=== PATIENT | female | born 1970 | race Caucasian/White ===

== ENCOUNTER 2022-08-31 13:15 | Emergency (ER) | payer MEDICAID, SELFPAY ==
[2022-08-31] VITALS (9 sets, daily range): BP systolic 128–147; BP diastolic 67–78; PULSE 86–101; RESP 20; TEMP 37.1–37.2; O2SAT 87–90; BMI 34.6
--- NOTE | 2022-08-31 13:45 | CRLHL7_ITS ---
For Patients: As a result of the Century Cures Act, medical imaging exams and procedure reports are released immediately into your electronic medical record. You may view this report before your referring provider. If you have questions, please contact your health care provider. INDICATION: Asthma. Dyspnea COMPARISON: August 02, 2018 TECHNIQUE: Single-view examination FINDINGS: TUBES AND LINES: None. HEART AND MEDIASTINUM: The heart size is normal. The mediastinal contour appears normal for patient age. LUNGS AND PLEURAL SPACES: The lungs appear normal.The pleural spaces are unremarkable. OSSEOUS STRUCTURES: Age-appropriate appearance. No acute focal finding. IMPRESSION: No evidence of active pulmonary disease. Dictated by Felipe Marcus MD @ 08/31/2022 2:36:54 PM (Electronically Signed)
[2022-08-31 13:55] LABS: Basophils Absolute Auto 0.03 K/uL (0.00-0.30); Basophils Percent Auto 0.4 % (0.0-3.0); Eosinophils Absolute Auto 0.48 K/uL (0.00-0.50); Eosinophils Percent Auto 6.2 % (0.0-7.0); Hematocrit 40.7 % (33.0-51.0); Hemoglobin* 13.3 gm/dL (12.0-16.0); Immature Granulocytes Abs Auto 0.01 K/uL (0.00-0.30); Immature Granulocytes Pct Auto 0.1 %; Lymphocytes Absolute Auto 1.98 K/uL (0.90-2.90); Lymphocytes Percent Auto 25.5 % (20-44); Mean Corpuscular HGB Conc 33 gm/dL (32-36); Mean Corpuscular Hemoglobin 31 pg (26-34); Mean Corpuscular Volume 94 fL (80-100); Monocytes Percent Auto 5.2 % (0.0-11.0); Neutrophils Absolute Auto 4.86 K/uL (1.7-7.0); Neutrophils Percent Auto 62.6 % (42.0-72.0); Platelet Count* 272 K/uL (140-440); RDW Coefficient of Variation % 13.4 % (11.5-15.5); Red Blood Count 4.31 m/uL (4.00-5.20); White Blood Count* 7.76 K/uL (4.50-11.00)
--- NOTE | 2022-08-31 13:55 | ED_ITS ---
HPI - General Adult General Time Seen by Provider: 13:55 Date Seen: 08/31/22 Chief complaint: Asthma Stated complaint: Asthma Time Seen by Provider: 08/31/22 13:31 Source: patient Mode of arrival: EMS Limitations: no limitations History of Present Illness HPI narrative: Patient is a very pleasant 52 white female who has a long history of asthma, she sees Dr. Plummer in [facility] in [place]. The patient has had a cold for the last couple of days in her breathing got worse, she went to Urgent Care, they sent her by ambulance to the emergency department. Her OC sats were in the 85% range at the urgent care. She typically does very well with steroids and that helps her greatly. She thinks she ?waited too long this time?. The patient got Solu-Medrol in route 125, DuoNeb x2 and albuterol neb x1, she feels better, O2 sats now in the 88-92% range patient has had a mild cold over the last couple of days as mention. Generally is healthy other than her asthma component. She does take duloxetine metformin methylphenidate montelukast a statin and topiramate. She states he feels better at this time and has improved significantly Related Data Home Medications Medication Instructions Recorded Confirmed albuterol sulfate 90 mcg/actuation inhalation 08/31/22 aerosol inhaler (ProAir HFA) alprazolam 0.5 mg tablet mg 08/31/22 aripiprazole 15 mg tablet mg 08/31/22 duloxetine 30 mg capsule,delayed mg PO 08/31/22 release duloxetine 60 mg capsule,delayed mg PO 08/31/22 release eszopiclone 2 mg tablet mg 08/31/22 liraglutide 0.6 mg/0.1 mL (18 mg/3 mg subcut 08/31/22 mL) subcutaneous pen injector (Victoza 3-Boom) metformin 500 mg tablet,extended mg PO 08/31/22 release 24 hr methylphenidate HCl 20 mg tablet mg 08/31/22 montelukast 10 mg tablet mg 08/31/22 rosuvastatin 10 mg tablet mg 08/31/22 topiramate 50 mg tablet mg 08/31/22 Previous Rx's Medication Instructions Recorded prednisone 20 mg tablet 20 mg PO BID #10 tabs 08/31/22 Allergies Allergy/AdvReac Type Severity Reaction Status Date / Time No Known Drug Allergies Allergy Verified 08/31/22 12:28 Review of Systems Status of ROS: Reports: 6 or more systems reviewed and unremarkable except as noted in History and below [facility] Medical History Shortness of breath Social History Smoking Status: Never smoker How often do you have a drink containing alcohol: never How often do you have six or more drinks on one occasion: Never AUDIT-C Alcohol total score: 0 Non-prescribed substance use: denies use Exam Narrative: Exam Narrative: Objective: Vital signs are O2 sat 88 and 87% on 2 L nasal cannula, patient is noncyanotic, no accessory muscles of respiration used HEENT is unremarkable no facial asymmetry, mouth clear Neck is supple Chest shows diffuse lower half wheezes, no rales Heart rhythm regular Extremities are no edema good perfusion Skin warm and dry Const: Vital Signs, click to edit/add: Vital Signs - 24 hr 08/31/22 13:23 08/31/22 13:30 08/31/22 13:32 Temperature 99.0 F Pulse Rate 97 98 Pulse Rate [Right Pulse Oximeter] 86 Respiratory Rate Blood Pressure 140/72 H Blood Pressure [Le ft Upper Arm] 128/67 Pulse Oximetry 88 87 L 87 L Oxygen Delivery Me thod Nasal Cannula Nasal Cannula Nasal Cannula Oxygen Flow Rate 2 2 2 08/31/22 13:45 08/31/22 13:33 08/31/22 14:00 Temperature Pulse Rate 95 93 Pulse Rate [Right Pulse Oximeter] Respiratory Rate Blood Pressure Blood Pressure [Le ft Upper Arm] Pulse Oximetry 90 88 87 L Oxygen Delivery Me thod Nasal Cannula Nasal Cannula Oxygen Flow Rate 2 2 08/31/22 14:30 08/31/22 15:28 08/31/22 17:14 Temperature 98.7 F Pulse Rate 101 H Pulse Rate [Right Pulse Oximeter] 89 Respiratory Rate 20 Blood Pressure Blood Pressure [Le ft Upper Arm] 147/78 H 138/76 Pulse Oximetry 88 90 90 Oxygen Delivery Me thod Nasal Cannula Room Air Room Air Oxygen Flow Rate 2 Course Vital Signs Vital signs: Initial Vital Signs Temperature 99.0 F 08/31/22 13:23 Temperature Source Temporal Artery Scan 08/31/22 13:23 Pulse Rate 86 12/14/22 13:23 Blood Pressure 128/67 08/31/22 13:23 Blood Pressure Mean 87 08/31/22 13:23 Blood Pressure Position Sitting 08/31/22 13:23 Pulse Oximetry 88 08/31/22 13:23 Oxygen Delivery Method 08/31/22 13:23 Oxygen Flow Rate 2 08/31/22 13:23 Vital Signs Temperature 99.0 F 08/31/22 13:23 Pulse Rate 86 08/31/22 13:23 Blood Pressure 128/67 08/31/22 13:23 Pulse Oximetry 88 08/31/22 13:23 Oxygen Delivery Method 08/31/22 13:23 Oxygen Flow Rate 2 08/31/22 13:23 Temperature 98.7 F 08/31/22 17:14 Pulse Rate 89 08/31/22 17:14 Respiratory Rate 20 08/31/22 17:14 Blood Pressure 138/76 08/31/22 17:14 Pulse Oximetry 90 08/31/22 17:14 Oxygen Delivery Method 08/31/22 17:14 Oxygen Flow Rate 2 08/31/22 14:30 Medical Decision Making MDM Narrative Medical decision making narrative: Patient has a history of asthma, and has had upper respiratory infection, she has been treated with Solu-Medrol and nebs already. Feels better. O2 sat is still leaking behind. Will check x-ray, COVID/RSV/influenza test. Laboratory studies. Give additional IV fluid. Question be whether she can proceed home based on her O2 sat and think monitoring for. Time would be reasonable. She was comfortable this plan. Addendum: The patient's x-ray by my read looks looks unremarkable, her laboratory studies look reassuring, COVID/influenza/RSV are negative. She states she feels much better after the nebs and the steroid. However without oxygen she drops down in the 84 85% O2 sat range. She tends to respond well to steroids and will give her a 50 mg additional oral steroid, and then give her a little more time to see if her O2 sats will stabilize. If not she may need hospitalization overnight. But will see how she responds. Addendum: Patient has a reassuring x-ray as well as laboratory studies. Her O2 sat at rest is in the 92-88% range. When she does exercise remove about she gets into the 85to 86 range. She has no shortness of breath chest pain or breathing difficulty. At this time I offered her admission to the hospital noting that she does have a fairly low O2 sat and with asthma this could be of concern that she could injure herself or fall or get hypoxic. She understands this and wishes to make a decision to go home. She would like to continue prednisone which has helped her in the past. I think that is reasonable will call in 20 mg b.i.d. x5 days. I also offered her more prolonged observation period in the ED and she declined this. I do think the steroids will help her over the next 6-8 hours. She does have nebulizers at home. If she continue the runs lower than 88% on her O2 sat she should come back to the ER, and she was comfortable this plan. I did reiterate that I strongly recommend she stay in the hospital that would be my medical recommendation. She understands that wishes to go home at this time., and I think his capable and competent to make that decision Lab Data Labs: Lab Results 08/31/22 08/31/22 08/31/22 Range/Units 13:40 13:40 13:40 WBC 7.76 (4.50-11.00) K/uL RBC 4.31 (4.00-5.20) m/uL Hgb 13.3 (12.0-16.0) gm/dL Hct 40.7 (33.0-51.0) % MCV 94 (80-100) fL MCH 31 (26-34) pg MCHC 33 (32-36) gm/dL RDW Coeff of Orly 13.4 (11.5-15.5) % Plt Count 272 (140-440) K/uL Neut % (Auto) 62.6 (42.0-72.0) % Lymph % (Auto) 25.5 (20-44) % Ponce % (Auto) 5.2 (0.0-11.0) % Eos % (Auto) 6.2 (0.0-7.0) % Baso % (Auto) 0.4 (0.0-3.0) % Neut # (Auto) 4.86 (1.7-7.0) K/uL Lymph # (Auto) 1.98 (0.90-2.90) K/uL Ponce # (Auto) 0.40 (0.00-0.90) K/UL Eos # (Auto) 0.48 (0.00-0.50) K/uL Baso # (Auto) 0.03 (0.00-0.30) K/uL Abs Immat Gran (auto) 0.01 (0.00-0.30) K/uL Imm/Tot Granulo (auto) 0.1 % Sodium 142 (135-149) mmol/L Potassium 4.3 (3.6-5.1) mmol/L Chloride 108 (96-114) mmol/L Carbon Dioxide 28 (20-32) mmol/L BUN 10 (7-30) mg/dL Creatinine 0.6 (0.5-1.5) mg/dL Estimated Creat Clear 126.57 Estimated GFR 108 ml/min Glucose 121 H (60-115) mg/dL Calcium 9.2 (8.4-10.6) mg/dL Total Bilirubin 0.4 (0.1-1.5) mg/dL Direct Bilirubin 0.2 (0.0-0.5) mg/dL AST 24 (12-35) U/L ALT 23 (4-35) U/L Alkaline Phosphatase 69 (40-150) U/L C-Reactive Protein < 0.5 L (0.5-1.0) mg/dL Total Protein 7.6 (6.0-8.3) g/dL Albumin 4.6 (3.3-5.0) g/dL SARS-CoV-2 (PCR) Negative SARS-CoV-2 (Negative) Influenza Type A (PCR) Negative PCR FLU A (Negative) Influenza Type B (PCR) Negative PCR FLU B (Negative) RSV (PCR) Negative PCR RSV (Negative) Discharge Plan Discharge Clinical Impression: Asthma exacerbation, Acute upper respiratory infection Patient Disposition: Home w/ Parent or Adult Condition: Improved Additional Instructions: Light activity, recommend home O2 sat monitor, prednisone 20 mg b.i.d. x5 days start today, continue her home nebulizer DuoNeb 4 times a day, return to ED sooner if problems or concerns otherwise follow up with primary care in the next 2 days Activity Level: Light activity Discharge Diet: Regular Prescriptions: New prednisone 20 mg tablet 20 mg PO BID Qty: 10 0RF No Action methylphenidate HCl 20 mg tablet Label Comments: Take 1 Tablet (20 mg) by mouth three times a day. alprazolam 0.5 mg tablet montelukast 10 mg tablet Label Comments: Take 1 Tablet (10 mg) by mouth every evening. Will need an appointment for further refills. albuterol sulfate [ProAir HFA] 90 mcg/actuation HFA aerosol inhaler INHALATION Label Comments: Inhale 1-2 Puffs every 4 hours as needed for Wheezing. Pharmacy may substitute albuterol HFA inhalers based on insurance metformin 500 mg tablet extended release 24 hr PO Label Comments: Take 4 Tablets by mouth every evening with a meal aripiprazole 15 mg tablet Label Comments: Take 0.5 Tablets (7.5 mg) by mouth daily. rosuvastatin 10 mg tablet Label Comments: Take 1 Tablet by mouth daily topiramate 50 mg tablet Label Comments: take 1 tablet by mouth in the morning and 3 tablets in the late afternoon/evening duloxetine 30 mg capsule,delayed release(DR/EC) PO Label Comments: TAKE THREE CAPSULES BY MOUTH DAILY duloxetine 60 mg capsule,delayed release(DR/EC) PO Label Comments: Take 2 Capsules (120 mg) by mouth daily. eszopiclone 2 mg tablet Label Comments: Take 1 Tablet (2 mg) by mouth at bedtime as needed for Other (for insomnia). Victoza 3-Boom 0.6 mg/0.1 mL (18 mg/3 mL) pen injector SUBCUT Label Comments: INJECT 1.8 MG SUBCUTANEOUSLY DAILY Follow Up/Referrals: Provider,Not a Local [Primary Care Provider] - Stand Alone Forms: [employer] Info Instructions
[2022-08-31] MEDS: ACETAMINOPHEN 500 MG TABLET 1000 MG PO (13:57)
[2022-08-31] MEDS: 0.9 % SODIUM CHLORIDE 1000 ml 1,000 ML 6000 ML IV (13:58)
[2022-08-31 14:01] LABS: Slide Review Reflex No
[2022-08-31 14:11] LABS: Albumin* 4.6 g/dL (3.3-5.0); Chloride* 108 mmol/L (96-114); Sodium* 142 mmol/L (135-149)
[2022-08-31 14:12] LABS: Potassium* 4.3 mmol/L (3.6-5.1)
[2022-08-31 14:13] LABS: Creatinine* 0.6 mg/dL (0.5-1.5); Est. Creatinine Clearance* 126.57; Estimated Glomerular Filt Rate 108 ml/min
[2022-08-31 14:14] LABS: Alkaline Phosphatase* 69 U/L (40-150); Aspartate Amino Transferase* 24 U/L (12-35); Bilirubin Direct* 0.2 mg/dL (0.0-0.5); Bilirubin Total* 0.4 mg/dL (0.1-1.5); Carbon Dioxide* 28 mmol/L (20-32); Total Protein* 7.6 g/dL (6.0-8.3)
[2022-08-31 14:17] LABS: Alanine Aminotransferase* 23 U/L (4-35); Blood Urea Nitrogen* 10 mg/dL (7-30); Calcium* 9.2 mg/dL (8.4-10.6); Glucose* 121 mg/dL (60-115)
[2022-08-31 14:18] LABS: C Reactive Protein* < 0.5 mg/dL (0.5-1.0)
[2022-08-31 14:40] LABS: PCR FLU A Negative PCR FLU A (Negative); PCR FLU B Negative PCR FLU B (Negative); PCR RSV Negative PCR RSV (Negative); SARS PCR* Negative SARS-CoV-2 (Negative)
[2022-08-31] MEDS: predniSONE 10 MG TABLET 50 MG PO (14:52)
--- NOTE | 2022-08-31 14:54 | ED.NURSE ---
Trialed off supplemental O2. On RA, pt satting in mid-80's%. aware, placed back on 2L O2 NC.
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
--- OUTSIDE RECORDS SUMMARY | 2022-08-31 14:56 | XMS_ITS | Encounter Summary ---
:1970 Author Organization [facility] Address [address], [place] [address] Care Team Providers Name Role Phone Felipe Baum MD Primary Care Provider Encounter Details Date Type Department Care Team Description 06/03/2022 Partner ED HIM DEPARTMENT Provider, Juan sommers MD [facility] 06/03/2022 Interface provid er interface provider, ELADIO [address] Social History Tobacco Use Types Packs/Day Years [...] place to sleep or slept in a fpc (including now)? Sex Assigned at Date Recorded Female 04/30/2021 11:10 AM CDT documented as of this encounter Plan of Treatment Upcoming Encounters Date Type Specialty Care Team Description 09/01/2022 Telemedicine [place] [address] [place], [place] [address] (Wo rk) documented as of this encounter Visit Diagnoses Not on filedocumented in this encounter Care Teams Interpreter And Translator Relationship Specialty Start Date End Date Felipe Baum MD PCP - General Family Practice 07/16/19 [address] [place] [address] documented as of this encounter
--- OUTSIDE RECORDS SUMMARY | 2022-08-31 14:56 | XMS_ITS | Encounter Summary ---
:1970 Author Organization [facility] Address [address] [place] [address] Care Team Providers Name Role Phone Felipe Baum MD Primary Care Provider Reason for Visit Reason Comments Medication Follow Up Dwight[facility] Encounter Details Date Type Department Care Team Description 10/13/2021 Telephone [facility] Buffy Salcedo, Ms dication Follow Up [facility] RN (Roger) [address] [place], [place] [address] Social History Tobacco Use Types Packs/Day Years [...] place to sleep or slept in a custodial (including now)? Sex Assigned at Date Recorded Female 04/30/2021 11:10 AM CDT documented as of this encounter Nursing Notes Buffy Salcedo RN - 10/13/2021 1:32 PM CST Called pt and informed her about new prescription (victoza) from provider (Dr. Sultana). Pt said she has already picked up prescription. OLOGY PHYSICIAN documented in this encounter Plan of Treatment Upcoming Encounters Date Type Specialty Care Team Description 09/01/2022 Telemedicine [place] [address] [place], [place] [address] (Wo rk) documented as of this encounter Visit Diagnoses Not on filedocumented in this encounter Care Teams Leather Belt Maker Relationship Specialty Start Date End Date Felipe Baum MD PCP - General Family Practice 07/16/19 [address] [place] [address] documented as of this encounter
--- OUTSIDE RECORDS SUMMARY | 2022-08-31 14:56 | XMS_ITS | Encounter Summary ---
:1970 Author Organization [facility] Address [address], [place] [address] Care Team Providers Name Role Phone Felipe Baum MD Primary Care Provider Encounter Details Date Type Department Care Team Description 11/30/2021 Lab Visit Page Lab Type 2 diabetes mellitus [id number] with diabetic nephropathy, [place] [address] without long-term current [phone] use of insulin (HRC) Social History Tobacco Use Types Packs/Day Years [...] place to sleep or slept in a nursing home (including now)? Sex Assigned at Date Recorded Female 04/30/2021 11:10 AM CDT documented as of this encounter Plan of Treatment Upcoming Encounters Date Type Specialty Care Team Description 09/01/2022 Telemedicine [place] [address] [place], [place] [address] (Wo rk) documented as of this encounter Procedures Procedure Name Priority Date/Time Associated Diagnosis Comme nts ALBUMIN/CREAT RATIO Routine 11/30/2021 3:06 PM Type 2 diabetes Results for this CDT mellitus with procedure are in diabetic the results nephropathy, without section . long-term current use of insulin (HRC) BASIC METABOLIC Routine 11/30/2021 2:31 PM Type 2 diabetes Res ults for this PANEL CDT mellitus with procedure are in diabetic the results nephropathy, without section . long-term current use of insulin (HRC) HGB A1C Routine 11/30/2021 2:31 PM Type 2 diabetes Result s for this CDT mellitus with procedure are in diabetic the results nephropathy, without section . long-term current use of insulin (HRC) documented in this encounter Results Albumin/Creatinine Ratio,Random Urine (11/30/2021 3:06 PM CDT) athologist Signature Albumin/Creati 6 <30 mg/g 11/30/2021 [facility] nine Ratio, 6:10 PM CDT LABORATORY Urine, Random Albumin, 12.0 mg/L 11/30/2021 [facility] Urine, Random 6:10 PM CDT LABORATORY Creatinine, 193 >20 mg/dL 11/30/2021 [facility] Urine, Random mg/dL 6:10 PM CDT LABORATORY Specimen Anatomical Collection Method Collection Time Receive d Time (Source) Location / / Volume Laterality Urine Non-blood 11/30/2021 3:06 PM 2 3:06 Collection / CDT PM CDT Unknown Felipe Baum MD LAB_1 Performing Organization Address City/State/ZIP Code Phon e Number [facility] [id number] [place] [address] Basic Metabolic Panel (11/30/2021 2:31 PM CDT) athologist Signature Sodium 144 136 - 145 11/30/2021 [facility] mmol/L 5:36 PM CDT LABORATORY Potassium 4.5 3.5 - 5.1 11/30/2021 [facility] mmol/L 5:36 PM CDT LABORATORY Chloride 107 98 - 109 11/30/2021 [facility] mmol/L 5:36 PM CDT LABORATORY CO2 29 20 - 29 11/30/2021 [facility] mmol/L 5:36 PM CDT LABORATORY Anion Gap 8 7 - 16 11/30/2021 [facility] mmol/L 5:36 PM CDT LABORATORY Calcium 9.2 8.4 - 10.4 11/30/2021 [facility] mg/dL 5:36 PM CDT LABORATORY BUN 15 7 - 26 11/30/2021 [facility] mg/dL 5:36 PM CDT LABORATORY Creatinine 0.80 0.55 - 11/30/2021 [facility] 1.02 mg/dL 5:36 PM CDT LABORATORY GFR, Estimated >60 >60 11/30/2021 [facility] mL/min/1.7 5:36 PM CDT LABORATORY 3m2 Glucose 82 70 - 100 11/30/2021 [facility] mg/dL 5:36 PM CDT LABORATORY Comment: The given reference range is fo r the fasting state. Non-fasting reference range for glucose is 70 - 180 mg/dL. Hours Fasting 5 11/30/2021 5:36 PM CDT [facility] Specimen Anatomical Collection Method / Collection Time Recei janie Time (Source) Location / Volume Laterality Blood Venipuncture / 11/30/2021 2:31 11/30/2021 2:31 Unknown PM CDT PM CDT Felipe Baum MD LAB_1 Performing Organization Address City/[facility]/ZIP Code Phon e Number [facility] [id number] [place] [address] [facility] [id number] [place] [phone], [phone] [facility] (ABNORMAL) Hemoglobin A1C Glycosylated (11/30/2021 2:31 PM CDT) [facility] Method Time Signature Hemoglobin A1C 6.5 (H) <=5.6 % 12/01/2021 PENDING SALE TO [facility] 9:07 AM CDT [facility] Specimen Anatomical Collection Method / Collection Time Recei janie Time (Source) Location / Volume Laterality Blood Venipuncture / 11/30/2021 2:31 11/30/2021 2:31 Unknown PM CDT PM CDT Narrative [facility] - 12/01/2021 9:07 AM CDT For patients not previously diagnosed with diabetes: 5.7-6.4%: Increased risk for diabetes 6.5% and greater: Diagnostic for diabete s For patients diagnosed with diabetes: <8.0%: Goal of therapy for ages 18-75 Clinicians may recommend a higher or low er goal for specific individuals. Felipe Baum MD LAB_1 Performing Organization Address City/State/ZIP Code Phon e Number [facility] [address] [address] documented in this encounter Visit Diagnoses Diagnosis Type 2 diabetes mellitus with diabetic n ephropathy, without long-term current use of insulin (HRC) documented in this encounter Care Teams Director Of Sports Performance Relationship Specialty Start Date End Date Felipe Baum MD PCP - General Family Practice 07/16/19 [address] [place], [place] [id number] documented as of this encounter
--- OUTSIDE RECORDS SUMMARY | 2022-08-31 14:56 | XMS_ITS | Encounter Summary ---
:1970 Author Organization [facility] Address [address], [place] [address] Care Team Providers Name Role Phone Felipe Baum MD Primary Care Provider Encounter Details Date Type Department Care Team Description 12/02/2021 Telemedicine [place] [address] Felipe Baum, Type 2 diabetes Family Medicine MD mellitus with diabetic [facility] [address] nephropathy, without [place], [place] long-term cur rent use [phone] of insulin (HRC) [phone] (Primary Dx) (Work) Social History Tobacco Use Types Packs/Day Years [...] minutes do you engage in exercise at is 40 min 07/08/2021 level? Financial Resource [...] place to sleep or slept in a halfway (including now)? Sex Assigned at Date Recorded Female 04/30/2021 11:10 AM CDT documented as of this encounter Progress Notes Felipe Baum MD - 12/02/2021 7:00 AM CDT Subjective: Today's visit with Rajesh Caba was conducted as a scheduled video visit. The patient statesshe was excited to see her hemoglobin A1c down to 6.5%. She has continued to work on weight loss although has not been as active this past month as she started a couple new jobs. She plans to become more active again when things calm down though. She has not had any issues with low blood sugars and feels like things are going well. She has tolerated the lisinopril well and voices no other concerns this morning. 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 - Microalbuminuria has also significantly improved with lisinopril 2.5 mg daily, which she is tolerating well. - For now, we will maintain on her current regimen with no changes. - Encouraged annual eye exam. - Repeat labs in 3 months and follow up at that time or sooner if needed. Clinician located at home. Patient located at home Billing based on: Leanne Baum MD Voice recognition software ([employer]) was used to generate this note. As a result, wrong word or '[id number]' substitutions may have occurred due to the inherent limitations of voice recognition software. There may be errors in the script that have gone undetected. Please consider this when interpreting information found in this chart. documented in this encounter Plan of Treatment Upcoming Encounters Date Type Specialty Care Team Description 09/01/2022 Telemedicine [place] [address] [place], [place] [address] (Wo rk) Scheduled Orders Name Type Priority Associated Diagnoses Order S chedule Hemoglobin A1C Lab Routine Type 2 diabetes mellitus E xpected: 03/04/2022, Glycosylated with diabetic Expires: 12/02 nephropathy, without long-term current use of insulin (HRC) documented as of this encounter Visit Diagnoses Diagnosis Type 2 diabetes mellitus with diabetic n ephropathy, without long-term current use of insulin (HRC) - Primary documented in this encounter Care Teams Binding Nicker Relationship Specialty Start Date End Date Felipe Baum MD PCP - General Family Practice 07/16/19 [address] [place] [address] documented as of this encounter
--- OUTSIDE RECORDS SUMMARY | 2022-08-31 14:56 | XMS_ITS | Encounter Summary ---
:1970 Author Organization [facility] Address [address] [address] Care Team Providers Name Role Phone Felipe Baum MD Primary Care Provider Reason for Visit Reason Onset Date Comments Refill 08/25/2021 metFORMIN XR (GLUCOP ERIN XR) 500 MG 24 hour release tablet Encounter Details Date Type Department Care Team Description 08/25/2021 Refill [place] [address] Family Deysi Baum MD Refill (metFORMIN XR Medicine [address] (GLUCOPHAGE XR) 500 MG [address] [place] [address] 24 hour release tablet) [place], [place] [phone] (Wo rk) [address] [phone] Social History Tobacco Use Types Packs/Day Years [...] documented as of this encounter Nursing Notes Rafael Guerrero, RN - 08/27/2021 10:59 AM CST Further Assistance Needed on Refill from Clinician RN reviewed. New medication within the past year. Requesting 90 day supply. Cr is overdue (performed 14 months ago, required every 12 months) -> HBA1C is abnormal (9.1 % is greater than 7.9 %) Last qualifying visit: 05/27/2021 (with FELIPE BAUM) Next scheduled visit: 08/26/2021 (with FELIPE BAUM Review pended order for accuracy. Sign if appropriate. Document if appointment is needed for furtherrefills. Route to care team to notify patient if needed. Requested Prescriptions Pending Prescriptions Disp Refills metFORMIN XR (GLUCOPHAGE XR) 500 MG 24 hour release tablet 120 Tablet Sig: Take 1 Tablet by mouth every evening with a meal for 7 days, THEN 2 Tablets every evening witha meal for 7 days, THEN 3 Tablets every evening with a meal for 7 days, THEN 4 Tablets every eveningwith a meal for 7 days. REPRESENTATIVE Interface, Out Surescripts Prov Query - 08/25/2021 12:10 PM CST metFORMIN XR (GLUCOPHAGE XR) 500 MG 24 hour release tablet Medication started: 05/27/2021 Last ordered by FELIPE BAUM: 05/27/2021 (90 days ago) QTY: 120, Refills: 2, Sig: take 1 tablet by mouth every evening with a meal for 7 days, then 2 tablets every evening with a meal for 7 days, then 3 tablets every evening with a meal for 7 days, then 4 tablets every evening with a meal for 7 days. (unchanged) -> Patient has a visit scheduled within the next 3 days. -> The most recent order on 06/24/2021. -> Cr is overdue (performed 14 months ago, required every 12 months) -> HBA1C is abnormal (9.1 % is greater than 7.9 %) Last qualifying visit: 05/27/2021 (with FELIPE BAUM) Next scheduled visit: 08/26/2021 (with FELIPE BAUM) Cr: 0.8 mg/dL on 07/10/2020 HBA1C: 9.1 % on 05/13/2021 Powered by [employer] by [employer], Reference: [id number], 08/25/2021 12:10:46 PM DESK REPRESENTATIVE, Pool: JAVIER REFILL ([id number]) REPRESENTATIVE Interface, Out Surescripts Prov Query - 08/25/2021 12:10 PM CST The following lab order(s) may be associated with the Result Note below: BASIC METABOLIC PANEL Notes recorded by Felipe Baum MD on 07/13/2020 at 8:13 AM CDT Good morning, Your thyroid function and blood counts look good, so these are not to blame for your fatigue. Your sodium is a little high, but that should also not explain your current symptoms. I am wondering if youmight have sleep apnea as that could explain the fatigue and I would like you to consider a sleep study. Your provider has recommended an appointment with [facility]. This is not a sleep study order and must first be reviewed by a sleep specialist to determine the next steps. The review processlooks at multiple factors including your insurance requirements, personal health history, and [place] [employer] guidelines. This order will be reviewed within 1 business day and sent to scheduling for one of the following appointments: - Consultation/Office Visit with a Sleep Medicine Specialist - Consultation/Office Visit with an Insomnia Specialist - Portable/Home Sleep Test If you do not hear from our scheduling staff within the next 7 days, please contact us at [phone] and select option 1. If you have any further questions or concerns, please let me know. Also, I placed follow up labs to be done 3 months from now to recheck your HbA1c as well as your cholesterol levels. Felipe Baum MD REPRESENTATIVE Interface, Out Surescripts Prov Query - 08/25/2021 12:10 PM CST The following lab order(s) may be associated with the following Patient Result Comment (Entered by Felipe Baum MD at 07/13/2020 7:13 AM): BASIC METABOLIC PANEL Good morning,Your thyroid function and blood counts look good, so these are not to blame for your fatigue. Your sodium is a little high, but that should also not explain your current symptoms. I am wondering if you might have sleep apnea as that could explain the fatigue and I would like you to consider a sleep study.Your provider has recommended an appointment with [facility]. This is nota sleep study order and must first be reviewed by a sleep specialist to determine the next steps. The review process looks at multiple factors including your insurance requirements, personal health history, and [place] [employer] guidelines. This order will be reviewed within 1 business day and sent to scheduling for one of the following appointments: - Consultation/Office Visit with a Sleep Medicine Specialist - Consultation/Office Visit with an Insomnia Specialist - Portable/Home Sleep TestIf you do not hear from our scheduling staff within the next 7 days, please contact us at [phone] and select option 1.If you have any further questions or concerns, please let me know. Also, I placed follow up labs to be done 3 months from now to recheck your HbA1c as well as your cholesterol levels. Felipe Baum MD REPRESENTATIVE Interface, Out Surescripts Prov Query - 08/25/2021 12:10 PM CST The following lab order(s) may be associated with the following Patient Result Comment (Entered by Stanislaw Sultana MD at 05/18/2021 2:32 PM): HGB A1C Your hemoglobin A1c has increased significantly and is in the diabetic range. It is important that you follow-up with your primary provider to review this. Weight loss will help this, but I would recommend starting metformin and possibly another medication in the future for the diabetes. Your primary doctor can discuss metformin with you. Your cholesterol is also slightly elevated. Your other labs look fine. We can review this fur ther at your appointment in June. REPRESENTATIVE documented in this encounter Plan of Treatment Upcoming Encounters Date Type Specialty Care Team Description 09/01/2022 Telemedicine [place] [address] [place], [place] [address] (Wo rk) documented as of this encounter Visit Diagnoses Diagnosis Type 2 diabetes mellitus without complic ation, without long-term current use of insulin (HRC) documented in this encounter Care Teams Film Drying Machine Operator Relationship Specialty Start Date End Date Felipe Baum MD PCP - General Family Practice 07/16/19 [address] [place] [address] documented as of this encounter
--- OUTSIDE RECORDS SUMMARY | 2022-08-31 14:56 | XMS_ITS | Encounter Summary ---
:1970 Author Organization [facility] Address [address], [place] [address] Care Team Providers Name Role Phone Felipe Baum MD Primary Care Provider Reason for Referral (Routine) - New Request Specialty Diagnoses / Procedures Referred By Contact Refer red To Contact Diagnoses Benign neoplasm of ascending colon Felipe Baum MD Procedures Endoscopy, Colon, Screening/Diagnostic [address] [place] [address] Referral ID Status Reason Start Date Expiration Date Visits V isits Requested Authorized [id number] New Request 08/26/2021 11/25/2022 1 1 DESIGN SUPERVISOR Reason for Visit Reason Onset Date Comments Diabetes Video Visit 08/26/2021 Encounter Details Date Type Department Care Team Description 08/26/2021 Telemedicine [place] [id number] Felipe Baum, Type 2 diabetes mellitus with diabetic nephropathy, 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 Sex Assigned at Date Recorded Female 04/30/2021 11:10 AM CDT documented as of this encounter Last Filed Vital Signs Vital Sign Reading Time Taken Comments Blood Pressure - - Pulse - - Temperature - - Respiratory Rate - - Oxygen Saturation - - Inhaled Oxygen Concentration - - Weight 112.5 kg (248 lb) 08/26/2021 9:55 AM SHOW DESIGN SUPERVISOR pt repo rted Height 182.9 cm (6') 08/26/2021 9:55 AM SHOW DESIGN SUPERVISOR pt report ed Body Mass Index 33.63 08/26/2021 9:55 AM SHOW DESIGN SUPERVISOR documented in this encounter Progress Notes Felipe Baum MD - 08/26/2021 10:00 AM CST Subjective: Today's visit with Rajesh was conducted as a scheduled video visit for follow up of diabetes mellitus. She just had labs done yesterday that returned showing a hemoglobin A1c of 7.2%, which is improved from 9.1% on May 13. Her BMP was normal, but her urine microalbumin was elevated to 90.7. She is currently taking metformin XR 2000 mg daily and is tolerating that well. She is checking her sugars randomly at this point in time and says her fasting sugars are around 103-115. Objective: Ht 6' (1.829 m) Comment: pt reported Wt 248 lb (112.5 kg) Comment: pt reported BMI 33.63 kg/m?? 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 Type 2 diabetes mellitus with diabetic nephropathy - She was congratulated on the significant improvement of her hemoglobin A1c and I suspect this willcontinue to improve as she continues to adhere to a better diet, which she has done over the past 6 months. - She does have microalbuminuria so I suggested adding lisinopril 2.5 mg daily to her regimen. We will check a BMP and repeat UMAR in 3 months. - Follow up in the meantime as needed. Colon polyp - Referral placed to update colonoscopy. Clinician located at home. Patient located at home Billing based on: Leanne Baum MD DESIGN SUPERVISOR documented in this encounter Plan of Treatment Upcoming Encounters Date Type Specialty Care Team Description 09/01/2022 Telemedicine [place] [address] [place], [place] [address] (Wo rk) Scheduled Orders Name Type Priority Associated Diagnoses Order S chedule Endoscopy, Colon, GI Routine Benign neoplasm of 1 Oc currences starting Screening/Diagnostic ascending colon 05/2021 until 08/26/2023 documented as of this encounter Results Albumin/Creatinine Ratio,Random Urine (11/30/2021 3:06 PM CDT) athologist Signature Albumin/Creati 6 <30 mg/g 11/30/2021 [facility] nine Ratio, 6:10 PM CDT LABORATORY Urine, Random Albumin, 12.0 mg/L 11/30/2021 [facility] Urine, Random 6:10 PM CDT LABORATORY Creatinine, 193 >20 mg/dL 11/30/2021 [facility] Urine, Random mg/dL 6:10 PM CDT LABORATORY Specimen Anatomical Collection Method Collection Time Receive d Time (Source) Location / / Volume Laterality Urine Non-blood 11/30/2021 3:06 PM 2 3:06 Collection / CDT PM CDT Unknown Felipe Baum MD LAB_1 Performing Organization Address City/State/ZIP Code Phon e Number [facility] [id number] [place] [address] Basic Metabolic Panel (11/30/2021 2:31 PM CDT) athologist Signature Sodium 144 136 - 145 11/30/2021 [facility] mmol/L 5:36 PM CDT LABORATORY Potassium 4.5 3.5 - 5.1 11/30/2021 [facility] mmol/L 5:36 PM CDT LABORATORY Chloride 107 98 - 109 11/30/2021 [facility] mmol/L 5:36 PM CDT LABORATORY CO2 29 20 - 29 11/30/2021 [facility] mmol/L 5:36 PM CDT LABORATORY Anion Gap 8 7 - 16 11/30/2021 [facility] mmol/L 5:36 PM CDT LABORATORY Calcium 9.2 8.4 - 10.4 11/30/2021 [facility] mg/dL 5:36 PM CDT LABORATORY BUN 15 7 - 26 11/30/2021 [facility] mg/dL 5:36 PM CDT LABORATORY Creatinine 0.80 0.55 - 11/30/2021 [facility] 1.02 mg/dL 5:36 PM CDT LABORATORY GFR, Estimated >60 >60 11/30/2021 [facility] mL/min/1.7 5:36 PM CDT LABORATORY 3m2 Glucose 82 70 - 100 11/30/2021 [facility] mg/dL 5:36 PM CDT LABORATORY Comment: The given reference range is fo r the fasting state. Non-fasting reference range for glucose is 70 - 180 mg/dL. Hours Fasting 5 11/30/2021 5:36 PM CDT [facility] Specimen Anatomical Collection Method / Collection Time Recei janie Time (Source) Location / Volume Laterality Blood Venipuncture / 11/30/2021 2:31 11/30/2021 2:31 Unknown PM CDT PM CDT Felipe Baum MD LAB_1 Performing Organization Address City/State/ZIP Code Phon e Number [facility] [address] [place] [address] [facility] [address] [place] [address], [facility] (ABNORMAL) Hemoglobin A1C Glycosylated (11/30/2021 2:31 PM CDT) [facility] gist Method Time Signature Hemoglobin A1C 6.5 (H) <=5.6 % 12/01/2021 [facility] 9:07 AM CDT [facility] Specimen Anatomical Collection Method / Collection Time Recei janie Time (Source) Location / Volume Laterality Blood Venipuncture / 11/30/2021 2:31 11/30/2021 2:31 Unknown PM CDT PM CDT [facility] - 12/01/2021 9:07 AM CDT For patients not previously diagnosed with diabetes: 5.7-6.4%: Increased risk for diabetes 6.5% and greater: Diagnostic for diabete s For patients diagnosed with diabetes: <8.0%: Goal of therapy for ages 18-75 Clinicians may recommend a higher or low er goal for specific individuals. Felipe Baum MD LAB_1 Performing Organization Address City/State/ZIP Code Phon e Number [facility] [address] [phone] documented in this encounter Visit Diagnoses Diagnosis Type 2 diabetes mellitus with diabetic n ephropathy, without long-term current use of insulin (HRC) - Primary Benign neoplasm of ascending colon Benign neoplasm of colon documented in this encounter Care Teams Special Agent [employer] Relationship Specialty Start Date End Date Felipe Baum MD PCP - General Family Practice 07/16/19 [address] [place] [address] documented as of this encounter
--- OUTSIDE RECORDS SUMMARY | 2022-08-31 14:56 | XMS_ITS | Encounter Summary ---
:1970 Author Organization [facility] Address [address] [place] [address] Care Team Providers Name Role Phone Felipe Baum MD Primary Care Provider Reason for Referral Procedure/Equipment (Routine) - Closed Specialty Diagnoses / Procedures Referred By Contact Refer red To Contact Diagnoses PRAMOD (obstructive sleep apnea) Wale Hong APRN, Procedures Positive Airway Pressure - [facility] [address] [facility] [address] [place], [place] [address] Referral ID Status Reason Start Date Expiration Date Visits Requ ested Visits Authorized [id number] Closed 08/21/2021 02/17/2022 1 1 GUN SHELL ASSEMBLY MACHINE ADJUSTER Reason for Visit Reason Onset Date Comments Follow-up Video Visit 08/21/2021 Consult/Transfer Care (Routine) - Closed Specialty Diagnoses / Procedures Referred By Contact Refer red To Contact [facility] Diagnoses Fatigue, unspecified type Snoring Felipe Baum MD [id number] [facility] [address] [facility] [address] [facility] [place] [address] [place] [address] Phone: Fax: Referral ID Status Reason Start Date Expiration Date Visits Requ ested Visits Authorized [id number] Closed 07/13/2020 10/12/2021 1 1 Encounter Details Date Type Department Care Team Description 08/21/2021 Tele[facility]icine [facility] [address] Wale Hong, PRAMOD (obstructive sleep apnea) (Primary Dx); Pulmonary Medicine PUDDLER HELPER, CODY Hypersomnia with sleep apnea; [address] [place] Insomnia with sleep apnea; [facility] [address] Obesity, unspecified classification, uns pecified obesity type, unspecified whether serious comorbidity present [address] [place], [place] [phone] (Wo rk) Social History Tobacco Use Types Packs/Day Years [...] place to sleep or slept in a intermediate (including now)? Sex Assigned at Date Recorded Female 04/30/2021 11:10 AM CDT documented as of this encounter Last Filed Vital Signs Vital Sign Reading Time Taken Comments Blood Pressure - - Pulse - - Temperature - - Respiratory Rate - - Oxygen Saturation - - Inhaled Oxygen Concentration - - Weight 113.4 kg (250 lb) 08/20/2021 4:23 PM SHOTGUN SHELL ASSEMBLY MACHINE ADJUSTER Height 182.9 cm (6') 08/20/2021 4:23 PM SHOTGUN SHELL ASSEMBLY MACHINE ADJUSTER Body Mass Index 33.91 08/20/2021 4:23 PM SHOTGUN SHELL ASSEMBLY MACHINE ADJUSTER documented in this encounter Progress Notes Wale Hong, PUDDLER HELPER, CIRCUS TRAIN SUPERVISOR - 08/21/2021 10:00 AM CST Subjective: Today's visit with Rajesh was conducted as a scheduled video visit to discuss the results of her HST. Her , Alia, is on this call as he had a sleep study the same night. Her symptoms include snoring, insomnia, and daytime sleepiness. She is obese and taking weight loss medication. She takes Lunesta 2 mg for insomnia. She gets up in the middle of the night to eat. She has a history of asthma, ADHD, depression and diabetes. Interim health: no changes Objective: Ht 6' (1.829 m) Wt 250 lb (113.4 kg) BMI 33.91 kg/m?? Alert and oriented x3 with a pleasant affect. HST discussed with patient dated 07/30/21. She took her prescribed Lunesta 2 mg. Total recording time 489 minutes. RDI/LULU: 43/hr. GEORGE 44/hr. O2 lexy 77%. Snoring was mild to moderate. Assessment/Plan: Severe PRAMOD. We discussed consequences of untreated PRAMOD and treatment options including APAP, oral appliance, UPPP and Inspire. At this time, she would like to trial APAP 5-15 cm H20. (Corner). She willfollow up in 2-3 months for compliance and effectiveness. 2. Hypersomnia. Could be related to untreated PRAMOD. 3. Insomnia. Could be aggravated by untreated PRAMOD. She takes Lunesta. 4. Obesity. We discussed the bidirectional relationship between PRAMOD and obesity. 5. Hypoxia to 77%. We will check a night ox on APAP and room air when compliant. Clinician located at home. Patient located at home Billing based on: Complexity Wale Hong APRN, CNP GUN SHELL ASSEMBLY MACHINE ADJUSTER documented in this encounter Plan of Treatment Upcoming Encounters Date Type Specialty Care Team Description 09/01/2022 [facility] [place] [address] [place], [place] [address] (Wo rk) documented as of this encounter Visit Diagnoses Diagnosis PRAMOD (obstructive sleep apnea) - Primary Obstructive sleep apnea (adult) (pediatr ic) Hypersomnia with sleep apnea Hypersomnia with sleep apnea, unspecifie d Insomnia with sleep apnea Insomnia with sleep apnea, unspecified Obesity, unspecified classification, uns pecified obesity type, unspecified whether serious comorbidity present (HRC) documented in this encounter Care Teams Supervisor Cell Operation Relationship Specialty Start Date End Date Felipe Baum MD PCP - General Family Practice 07/16/19 [address] [place] [address] documented as of this encounter
--- OUTSIDE RECORDS SUMMARY | 2022-08-31 14:56 | XMS_ITS | Encounter Summary ---
:1970 Author Organization [facility] Address [address] [place] [address] Care Team Providers Name Role Phone Felipe Baum MD Primary Care Provider Reason for Visit Reason Onset Date Comments Refill 12/24/2021 [facility] Encounter Details Date Type Department Care Team Description 12/24/2021 Refill [facility] Stanislaw Sultana MD Refill ([facility]) [facility] [address] [facility] [address] [place] [address] [place], [place] [address] [phone] Social History Tobacco Use Types Packs/Day Years [...] place to sleep or slept in a fdc (including now)? Sex Assigned at Date Recorded Female 04/30/2021 11:10 AM CDT documented as of this encounter Nursing Notes Stanislaw Sultana MD - 12/25/2021 9:16 PM CDT 1 month rx sent. Luly Segura LPN - 12/24/2021 2:57 PM CDT M[facility] pt last seen on 10-11-21 by MARIANNE. Future appt YES scheduled 01-10-22. Last dispensed: 11-30-21 PHARMACY IS REQUESTING A NEW SCRIPT WITH THE NEW DOSE (1.2MG DAILY THEREAFTER) Luly Segura LPN 2:57 PM 12/24/2021 documented in this encounter Plan of Treatment Upcoming Encounters Date Type Specialty Care Team Description 09/01/2022 Telemedicine [place] [address] [place], [place] [address] (Wo rk) documented as of this encounter Visit Diagnoses Not on filedocumented in this encounter Care Teams Pressure Tank Operator Relationship Specialty Start Date End Date Felipe Baum MD PCP - General Family Practice 07/16/19 [address] [place] [address] documented as of this encounter
--- OUTSIDE RECORDS SUMMARY | 2022-08-31 14:56 | XMS_ITS | Encounter Summary ---
:1970 Author Organization [facility] Address [address], [place] [address] Care Team Providers Name Role Phone Felipe Baum MD Primary Care Provider Encounter Details Date Type Department Care Team Description 08/25/2021 Lab Visit [facility] Type 2 diabetes mellitus wit hout complication, without long-term current use of insulin ([facility]); [address] [place] [address] Social History Tobacco Use Types Packs/Day Years [...] place to sleep or slept in a senior care (including now)? Sex Assigned at Date Recorded Female 04/30/2021 11:10 AM CDT documented as of this encounter Plan of Treatment Upcoming Encounters Date Type Specialty Care Team Description 09/01/2022 Telemedicine [place] [address] [place], [place] [address] (Wo rk) documented as of this encounter Procedures Procedure Name Priority Date/Time Associated Diagnosis Comme nts ALBUMIN/CREAT RATIO Routine 08/25/2021 11:19 AM Type 2 diabete s Results for this PIERCING MACHINE OPERATOR mellitus without procedure a re in complication, the results without long-term section. current use of insulin (HRC) Dyslipidemia BASIC METABOLIC Routine 08/25/2021 10:50 AM Type 2 diabetes Re sults for this PANEL PIERCING MACHINE OPERATOR mellitus without procedure a re in complication, the results without long-term section. current use of insulin (HRC) Dyslipidemia HGB A1C Routine 08/25/2021 10:50 AM Type 2 diabetes Resul ts for this PIERCING MACHINE OPERATOR mellitus without procedure a re in complication, the results without long-term section. current use of insulin (HRC) Dyslipidemia documented in this encounter Results (ABNORMAL) Albumin/Creatinine Ratio,Random Urine (08/25/2021 11:19 AM PIERCING MACHINE OPERATOR) P athologist Signature Albumin/Creati 68 (H) <30 mg/g 08/25/2021 [facility] nine Ratio, 3:50 PM PIERCING MACHINE OPERATOR LABORATORY Urine, Random Albumin, 90.7 mg/L 08/25/2021 [facility] Urine, Random 3:50 PM PIERCING MACHINE OPERATOR LABORATORY Creatinine, 134 >20 mg/dL 08/25/2021 [facility] Urine, Random mg/dL 3:50 PM PIERCING MACHINE OPERATOR LABORATORY Specimen Anatomical Collection Method Collection Time Receive d Time (Source) Location / / Volume Laterality Urine Non-blood 08/25/2021 11:19 08/25/2021 Collection / AM PIERCING MACHINE OPERATOR 11:19 AM PIERCING MACHINE OPERATOR Unknown Felipe Baum MD LAB_1 Performing Organization Address [facility] Code Phon e Number [facility] [address] [place] [address] (ABNORMAL) Hemoglobin A1C Glycosylated (08/25/2021 10:50 AM PIERCING MACHINE OPERATOR) Patholo gist Method Time Signature Hemoglobin A1C 7.2 (H) <=5.6 % 08/25/2021 [facility] 8:38 PM PIERCING MACHINE OPERATOR CENTRAL LAB Specimen Anatomical Collection Method / Collection Time Recei janie Time (Source) Location / Volume Laterality Blood Venipuncture / 08/25/2021 10:50 Unknown AM PIERCING MACHINE OPERATOR 10:50 AM PIERCING MACHINE OPERATOR Narrative [facility]AL [facility] - 08/25/2021 8:38 PM PIERCING MACHINE OPERATOR For patients not previously diagnosed with diabetes: 5.7-6.4%: Increased risk for diabetes 6.5% and greater: Diagnostic for diabete s For patients diagnosed with diabetes: <8.0%: Goal of therapy for ages 18-75 Clinicians may recommend a higher or low er goal for specific individuals. Felipe Baum MD LAB_1 Performing Organization Address City/[facility] Phon e Number [facility] [address] [address] (ABNORMAL) Basic Metabolic Panel (08/25/2021 10:50 AM PIERCING MACHINE OPERATOR) Analysis Performed At Patho logist Time Signature Sodium 141 136 - 145 08/25/2021 [facility] mmol/L 3:14 PM PIERCING MACHINE OPERATOR LABORATORY Potassium 4.8 3.5 - 5.1 08/25/2021 [facility] mmol/L 3:14 PM PIERCING MACHINE OPERATOR LABORATORY Chloride 108 98 - 109 08/25/2021 [facility] mmol/L 3:14 PM PIERCING MACHINE OPERATOR LABORATORY CO2 23 20 - 29 08/25/2021 [facility] mmol/L 3:14 PM PIERCING MACHINE OPERATOR LABORATORY Anion Gap 10 7 - 16 08/25/2021 [facility] mmol/L 3:14 PM PIERCING MACHINE OPERATOR LABORATORY Calcium 9.2 8.4 - 10.4 08/25/2021 [facility] mg/dL 3:14 PM PIERCING MACHINE OPERATOR LABORATORY BUN 13 7 - 26 08/25/2021 [facility] mg/dL 3:14 PM PIERCING MACHINE OPERATOR LABORATORY Creatinine 0.70 0.55 - 08/25/2021 [facility] 1.02 mg/dL 3:14 PM PIERCING MACHINE OPERATOR LABORATORY GFR, Estimated >60 >60 08/25/2021 [facility] mL/min/1.7 3:14 PM PIERCING MACHINE OPERATOR LABORATORY 3m2 Glucose 146 (H) 70 - 100 08/25/2021 [facility] mg/dL 3:14 PM PIERCING MACHINE OPERATOR LABORATORY Comment: The given reference range is fo r the fasting state. Non-fasting reference range for glucose is 70 - 180 mg/dL. Hours Fasting 10 08/25/2021 3:14 PM PIERCING MACHINE OPERATOR [facility] Specimen Anatomical Collection Method / Collection Time Recei janie Time (Source) Location / Volume Laterality Blood Venipuncture / 08/25/2021 10:50 Unknown AM PIERCING MACHINE OPERATOR 10:50 AM PIERCING MACHINE OPERATOR Felipe Baum MD LAB_1 Performing Organization Address City/State/ZIP Code Phon e Number [facility] [address] [place] [address] [facility] [address] [place] [address], [facility] documented in this encounter Visit Diagnoses Diagnosis Type 2 diabetes mellitus without complic ation, without long-term current use of insulin (HRC) Dyslipidemia (HRC) Other and unspecified hyperlipidemia documented in this encounter Care Teams Retail Sales Associate Bilingual Relationship Specialty Start Date End Date Felipe Baum MD PCP - General Family Practice 07/16/19 [address] [place], [place] [id number] documented as of this encounter
--- OUTSIDE RECORDS SUMMARY | 2022-08-31 14:56 | XMS_ITS | Encounter Summary ---
:1970 Author Organization [employer] Address [address] [place] [address] Care Team Providers Name Role Phone Felipe Baum MD Primary Care Provider Encounter Details Date Type Department Care Team Description 10/11/2021 Telemedicine [facility] Bariatric Stanislaw Sultana, Type 2 will betes mellitus without complication, without long-term current use of insulin (HRC) (Primary Dx); Surgery & Weight MD Severe obstructive sleep apnea; Given [address] Major depressive disorder, r ecurrent episode with seasonal pattern (HRC); [address] [facility] [address] Anxiety disorder, unspecified type; [address], [address] [place], [place] Attention deficit hyperactiv ity disorder (ADHD), unspecified ADHD type; [place] [address] Obesity (BMI 30-39.9) [address] Social History Tobacco Use Types Packs/Day Years [...] place to sleep or slept in a usp (including now)? Sex Assigned at Date Recorded Female 04/30/2021 11:10 AM CDT documented as of this encounter Last Filed Vital Signs Vital Sign Reading Time Taken Comments Blood Pressure - - Pulse - - Temperature - - Respiratory Rate - - Oxygen Saturation - - Inhaled Oxygen Concentration - - Weight 112.5 kg (248 lb) 10/11/2021 9:36 AM OIL WELL SERVICE OPERATOR HELPER Height 182.9 cm (6') 10/11/2021 9:36 AM OIL WELL SERVICE OPERATOR HELPER Body Mass Index 33.63 10/11/2021 9:36 AM OIL WELL SERVICE OPERATOR HELPER documented in this encounter Progress Notes Stanislaw Sultana MD - 10/11/2021 12:00 PM CST MEDICAL WEIGHT MANAGEMENT PROGRESS NOTE CHIEF COMPLAINT: Rajesh Caba is a 51 y.o. female with chronic medical problems including DM2, asthma, depression, anxiety, ADHD, and insomnia, who was referred/seeks to treat the following obesity-associated medical conditions by aggressive management of weight: DM2, asthma, sleep disturbance, weight-bearing joint pain, fatigue, and low back pain. INTERIM HISTORY: Initial consult 04/2021. Patient interested in MWM. On metformin through PCP. On Topamax. Weight trending down. Again struggling with more night eating. Starts around 8-9 p.m. when Ritalin wears off. Lasts until about midnight. She does feel there is an emotional component. Bariatric psychologist recommended establishing with an outside psychologist and she would like to do this, but has not yet. Moods were more down the last several months, but she has resumed Abilify and mood is stabilizing. She is going to the gym 5x weekly and walking on an incline. She has been diagnosed with severe sleep apnea and is working on increasing CPAP use (struggles with claustrophobia, using nasal canula, using 50%). She is working with the [facility] on her diabetes. Previous medication trials for weight loss: - Wellbutrin: Taken for depression, no weight loss, became less effective for mood - On Ritalin: Sometimes helpful for appetite, no obvious weight change Patient's weight history is as follows: Bariatric Weight History and Calculations Weight History Age at Onset of Obesity: 45 Highest Adult Weight: 260 lb Preferred Weight: 150 lb Lowest Adult Weight: 140 lb At what weight would you not be disappointed?: 175 lb Starting Weight: 260 lb Current Weight: 248 lb Height (in): 72 Weight Calculations Excess Weight: 88 lb Current Weight Loss: 12 lb Goal Weight: 172 lb Starting BMI: 35.7999840392648 Percent Exess Weight Loss: 13.7880003532029 Current BMI: 33.3415095849381 Percent Totoal Body Weight Loss: 4.06293053036924 WEIGHT HISTORY: Wt Readings from Last 3 Encounters: 10/11/21 248 lb (195714 g) 09/21/21 248 lb (159620 g) 08/26/21 248 lb (731466 g) [facility] Assessment: Updating Your Care Team 1. Have you been working on any lifestyle goals since your last visit?: Yes 4. How many hours of sleep to you get per night?: 4-5 hours 7. Do you drink sugar-sweetened beverages (regular soda or sweetened coffee or tea)?: Yes 8. What would you like to discuss today?: Medications to help with appetite control Post-surgical information: 5. Does the patient snack?: Pos The patient notes the following snacking habits: Yogurt, blackberries, mixed nuts, veggies and dip, peanut butter Patient reports being tall, thin, and very active through her 30s. Had weight gain starting around age 40 with her 4th and taking Abilify for depression. REVIEW OF SYSTEMS: Patient is experiencing the following symptoms/problems: Binge Eating, Increased Food Cravings PAST MEDICAL HISTORY: Past Medical History: Diagnosis Date ??? ADHD (attention deficit hyperactivity disorder) (HRC) 11/30/2011 ??? Anxiety (HRC) ??? Anxiety disorder NOS 11/30/2011 ??? Depression (HRC) ??? Insomnia, unspecified 08/02/2013 ??? Low back pain (HRC) 11/30/2011 ??? Major depressive disorder, recurrent episode, moderate (HRC) 11/30/2011 ??? Polysubstance dependence, in full and sustained remission 11/30/2011 ??? Radiculopathy, L3 11/30/2011 CURRENT PROBLEMS: Patient Active Problem List Diagnosis ??? Major depressive disorder, recurrent episode with seasonal pattern (HRC) ??? Anxiety disorder (HRC) ??? ADHD (attention deficit hyperactivity disorder) (HRC) ??? Low back pain (HRC) ??? Radiculopathy ??? Insomnia ??? Encounter for long-term (current) use of medications ??? Asthma (HRC) ??? Type 2 diabetes mellitus without complication, without long-term current use of insulin (HRC) ??? Severe obstructive sleep apnea ??? Type 2 diabetes mellitus with diabetic nephropathy, without long-term current use of insulin (HRC) ??? Benign neoplasm of ascending colon ??? Diverticular disease of colon ??? Obesity (BMI 30-39.9) (HRC) MEDICATIONS: Outpatient Medications Prior to Visit Medication Sig Note Dispense Refill ??? ALBUterol sulfate HFA 108 (90 Base) MCG/ACT inhaler Inhale 1-2 Puffs every 4 hours as needed forWheezing. Pharmacy may substitute albuterol HFA inhalers based on insurance 1 Each 11 ??? ALPRAZolam (XANAX) 0.5 MG tablet TAKE 1 TABLET BY MOUTH DAILY NEEDED FOR ANXIETY. 30 Tablet 0 ??? ARIPiprazole (ABILIFY) 15 MG tablet Take 0.5 Tablets by mouth daily. Dose increase. Replaces previous Abilify Rx. 15 Tablet 2 ??? blood glucose (ACCU-CHEK GUIDE) test strip Use 1 Each to test three times a day. Use as directed. 100 Strip 11 ??? Blood Glucose Monitoring Suppl (ACCU-CHEK GUIDE) w/Device KIT Use as directed. 1 Kit 0 ??? budesonide-formoterol (SYMBICORT) 160-4.5 MCG/ACT inhaler Inhale 2 Puffs two times a day. Rinse mouth/gargle after use. 3 Each 2 ??? Cetirizine HCl (ZYRTEC ALLERGY) 10 MG CAPS ??? DULoxetine (CYMBALTA) 60 MG capsule Take 2 Capsules by mouth daily. 60 Capsule 2 ??? eszopiclone (LUNESTA) 2 MG tablet Take 1 Tablet by mouth at bedtime as needed for Other (for insomnia). 30 Tablet 2 ??? ipratropium-albuterol (DUONEB) 0.5-2.5 (3) mg/3ml nebulizer solution Inhale 3 mL every 6 hours as needed for Wheezing. 120 mL 1 ??? lancets (ACCU-CHEK SOFTCLIX) Use 1 Each to test three times a day. 100 Each 11 ??? lisinopril (ZESTRIL) 2.5 MG tablet Take 1 Tablet by mouth daily. 90 Tablet 3 ??? medroxyPROGESTERone Acetate (DEPO-PROVERA IM) ??? metFORMIN XR (GLUCOPHAGE XR) 500 MG 24 hour release tablet Take 4 Tablets by mouth every eveningwith a meal. 360 Tablet 1 ??? methylphenidate (RITALIN) 20 MG tablet Take 1 Tablet by mouth three times a day. May fill on or after 09/24/21 90 Tablet 0 ??? montelukast (SINGULAIR) 10 MG tablet Take 1 Tablet by mouth every evening. 90 Tablet 3 ??? PREVIDENT 5000 SENSITIVE 1.1-5 % paste ??? Respiratory Therapy Supplies (NEBULIZER) device every 4 hours as needed (for wheezing). 1 Each 0 ??? rosuvastatin (CRESTOR) 10 MG tablet Take 1 Tablet by mouth daily. 90 Tablet 3 ??? Vitamins/Minerals Take 1 Tab by mouth. 01/30/2018: Received from: Emilie Thapa Sig: Take 1 tablet by mouth daily ??? topiramate (TOPAMAX) 50 MG tablet Take 1 tablet in the morning and 2 in the late afternoon/evening. 270 Tablet 1 No facility-administered medications prior to visit. ALLERGIES: No Known Allergies SURGICAL HISTORY: Past Surgical History: Procedure Laterality Date ??? HERNIA REPAIR 1975 ??? HX APPENDECTOMY 1984 ??? LUNG SURGERY 1989 Spontaneous , treated with scarring therapy FAMILY HISTORY: Family History Problem Relation Age of Onset ??? Diabetes Father Retinopathy, Neuropathy ??? Stroke Father ??? Kidney/Bladder Disease Father Kidney transplant, 2/2 cancer ??? Brain Aneurysm Father ??? Cancer Father Colon Cancer ??? Alcohol Abuse Father ??? Alcohol Abuse Mother ??? Depression Mother ??? Cancer, Ovary Maternal Aunt ??? Other (substance abuse) Sister ??? Other (Substance abuse) Brother ??? Anesthesia Reaction Negative Family History ??? Broken Bones Negative Family History ??? Clotting Disorder Negative Family History ??? Heart Disease Negative Family History ??? Osteoporosis Negative Family History ??? Rheumatologic Disease Negative Family History ??? Cancer, Breast Negative Family History SOCIAL HISTORY: Social History Tobacco Use ??? Smoking status: Never Smoker ??? Smokeless tobacco: Never Used Substance Use Topics ??? Alcohol use: No PHYSICAL EXAM: VITAL SIGNS: Ht 6' (182.9 cm) Wt 248 lb (178553 g) BMI 33.63 kg/m?? Wt Readings from Last 3 Encounters: 10/11/21 248 lb (368163 g) 09/21/21 248 lb (983695 g) 08/26/21 248 lb (097788 g) GENERAL: The patient appears in no acute distress. PSYCHIATRIC: Alert and oriented x 3. Affect is appropriate. Labs: Reviewed ASSESSMENT/PLAN: We will continue to treat the following obesity-associated medical conditions and conditions exacerbated by or contributing to weight gain by aggressive management of weight: ICD-10-CM 1. Type 2 diabetes mellitus without complication, without long-term current use of insulin ([facility]) E11.9 semaglutide (OZEMPIC) 2 MG/1.5ML injection 2. Severe obstructive sleep apnea G47.33 3. Major depressive disorder, recurrent episode with seasonal pattern ([facility]) F33.9 4. Anxiety disorder, unspecified type ([facility]) F41.9 5. Attention deficit hyperactivity disorder (ADHD), unspecified ADHD type ([facility]) F90.9 6. Obesity (BMI 30-39.9) ([facility]) E66.9 topiramate (TOPAMAX) 50 MG tablet The patient would like to continue a medical intervention for weight loss at this time. BMI is now less than 35. -The patient does have signs of emotionally dysregulated food intake and/or eating disorder - nighteating syndrome. She met with bariatric psychologist and establishing with an outside psychologist was recommended. She agrees to do this. -Nutrition: Patient is working with the [facility]. Follow-up with bariatric inspector final assembly electrical PRN. -Exercise: Continue regular gym exercise. Add more resistance training. -Medications: Increase Topamax to 50 mg in the morning and 150 mg in the evening. She has no history of nephrolithiasis and is on Depo. Continue metformin per PCP. Start ozempic 0.25 mg subcutaneous weekly and increase to 0.5 mg weekly after 4 weeks as tolerated. Side effects reviewed at length. Patient denies any personal or family history of thyroid cancer or pancreatitis. -Patient is currently taking the following medicaton with the potential side effect of weight loss:Ritalin -Patient is currently taking the folllwing medications with the potential side effect for weight gain: Abilify, Depo (she is likely close to menopause and might consider stopping his) -Potential future medications to trial for additional weight loss include the following: naltrexone(for food addiction, patient has a strong family history of substance abuse), Vyvanse in place of Ritalin (if more evidence of binge eating and if okayed by psychiatrist) -The following weight-loss medications may not be recommended for this patient: Phentermine (anxiety, insomnia), Wellbutrin (lost effectiveness for depression previously, but no side effects, so couldconsider) -Other: Continue to increase CPAP use. Follow up with me: in 3-4 months. This service was provided via telehealth. Change to telephone due to poor audio quality. Location of clinician: clinic Location of patient: car Time spent on video was 1 minutes. Total time spent on the telephone was 15 minutes. Total time spent in chart review documentation was 25 minutes. Billing based on complexity. WELL SERVICE OPERATOR HELPER documented in this encounter Nursing Notes Muriel Hughes RN - 10/11/2021 12:00 PM CST Standard rooming via telephone with follow up SmartForm completed. Last seen on 07/06/21 with recorded weight of 255 lbs. Weight History: Bariatric Weight History and Calculations Weight History Age at Onset of Obesity: 45 Highest Adult Weight: 260 lb Preferred Weight: 150 lb Lowest Adult Weight: 140 lb At what weight would you not be disappointed?: 175 lb Starting Weight: 260 lb Current Weight: 248 lb Height (in): 72 Weight Calculations Excess Weight: 88 lb Current Weight Loss: 12 lb Goal Weight: 172 lb Starting BMI: 35.7284229830077 Percent Exess Weight Loss: 13.2260845129652 Current BMI: 33.5126411636628 Percent Totoal Body Weight Loss: 4.53904171738915 Measurements Do you have a scale? YES - 248 lb. Do you have a BP cuff? NO Eating patterns Patient is experiencing the following symptoms/problems: Binge Eating, Increased Food Cravings Medications: Topamax, metformin and Ritalin (from PCP) Compliance: YES Side effects: No Would like to discuss: Medications to help with appetite control. Provided her my direct contact number for questions. Muriel Hughes RN 9:37 AM 10/11/2021 WELL SERVICE OPERATOR HELPER documented in this encounter Plan of Treatment Upcoming Encounters Date Type Specialty Care Team Description 09/01/2022 Telemedicine [place] [address] [place], [place] [address] (Wo rk) documented as of this encounter Visit Diagnoses Diagnosis Type 2 diabetes mellitus without complic ation, without long-term current use of insulin (HRC) - Primary Severe obstructive sleep apnea Major depressive disorder, recurrent epi sode with seasonal pattern (HRC) Anxiety disorder, unspecified type (HRC) Attention deficit hyperactivity disorder (ADHD), unspecified ADHD type (HRC) Obesity (BMI 30-39.9) (HRC) Obesity, unspecified documented in this encounter Care Teams Computer Terminal Operator Relationship Specialty Start Date End Date Felipe Baum MD PCP - General Family Practice 07/16/19 [address] [place] [address] documented as of this encounter
--- OUTSIDE RECORDS SUMMARY | 2022-08-31 14:56 | XMS_ITS | Encounter Summary ---
:1970 Author Organization [employer] Address [address] [place] [address] Care Team Providers Name Role Phone Felipe Baum MD Primary Care Provider Encounter Details Date Type Department Care Team Description 11/03/2021 Orders Only [place] [id number] Family Deysi Baum MD [facility] [address] [facility] [address] [place] [address] [place], [place] [phone] Social History Tobacco Use Types Packs/Day Years [...] 09/01/2022 Telemedicine [place] [address] [place], [place] [address] (Wo rk) documented as of this encounter Procedures Procedure Name Priority Date/Time Associated Diagnosis Comme nts COLONOSCOPY S 11/03/2021 Results for th is procedure are in the resu lts section. documented in this encounter Results COLONOSCOPY S (11/03/2021) Narrative This result has an attachment that is no t available. Felipe Baum MD DUMMY/OTHER/AR documented in this encounter Visit Diagnoses Not on filedocumented in this encounter Care Teams Animal Daycare Provider Relationship Specialty Start Date End Date Felipe Baum MD PCP - General Family Practice 07/16/19 [address] [place] [address] documented as of this encounter
--- OUTSIDE RECORDS SUMMARY | 2022-08-31 14:56 | XMS_ITS | Encounter Summary ---
:1970 Author Organization [employer] Address [address] [address] Care Team Providers Name Role Phone Felipe Baum MD Primary Care Provider Reason for Referral Procedure/Equipment (Routine) - Incomplete Specialty Diagnoses / Procedures Referred By Contact Refer red To Contact Procedures Felipe Baum MD [facility] [address] [place] [address] Referral ID Status Reason Start Date Expiration Date Visits V isits Requested Authorized [id number] Incomplete 07/07/2021 10/06/2022 1 1 Reason for Visit Procedure/Equipment (Routine) - Incomplete Specialty Diagnoses / Procedures Referred By Contact Refer red To Contact Procedures Felipe Baum MD [facility] Scre[facility] [place] [address] [place] [address] Referral ID Status Reason Start Date Expiration Date Visits V isits Requested Authorized [id number] Incomplete 07/07/2021 10/06/2022 1 1 Encounter Details Date Type Department Care Team Description 07/07/2021 Ancillary Procedure [facility] (Other) Mammography Services [address] [place] [address] Social History Tobacco Use [...] place to sleep or slept in a long-term (including now)? Sex Assigned at Date Recorded Female 04/30/2021 11:10 AM CDT documented as of this encounter Plan of Treatment Upcoming Encounters Date Type Specialty Care Team Description 09/01/2022 Telemedicine [place] [address] [place], [place] [address] (Wo rk) Scheduled Orders Name Type Priority Associated Diagnoses Order S chedule MM Mammogram Screening Imaging New Routine Expec caroline: 07/07/2021 Gina W CAD (Approximate), Expires: 2021 documented as of this encounter Visit Diagnoses Not on filedocumented in this encounter Care Teams Hospice Physician Relationship Specialty Start Date End Date Felipe Baum MD PCP - General Family Practice 07/16/19 [address] [place] [address] documented as of this encounter
--- OUTSIDE RECORDS SUMMARY | 2022-08-31 14:56 | XMS_ITS | Encounter Summary ---
:1970 Author Organization [employer] Address [address] [place] [address] Care Team Providers Name Role Phone Felipe Baum MD Primary Care Provider Reason for Visit Reason Comments DIABETES EDUCATION Consult/Transfer Care (Routine) - Closed Specialty Diagnoses / Procedures Referred By Contact Refer red To Contact Diagnoses Type 2 diabetes mellitus without complication, without long-term current use of insulin (HRC) [place] [address] [place] [address] Referral ID Status Reason Start Date Expiration Date Visits Requ ested Visits Authorized [id number] Closed 05/27/2021 08/26/2022 1 1 Encounter Details Date Type Department Care Team Description 07/08/2021 Telemedicine [facility] Darshana Francisco, Ty pe 2 diabetes Diabetes RDN, LD, CDCES mellitus without [address] [facility] complication, [place] [address] Blvd without long-term [phone] [place], [place] [address] insulin (HRC) [phone] (Primary Dx) (Work) Social History Tobacco Use [...] - Inhaled Oxygen Concentration - - Weight 115.7 kg (255 lb) 07/08/2021 3:41 PM Patient rep humphries CDT Height 182.9 cm (6') 07/08/2021 3:41 PM Patient repor caroline CDT Body Mass Index 34.58 07/08/2021 3:41 PM CDT documented in this encounter Progress Notes Maru Aly RN - 07/08/2021 2:45 PM CDT Subjective: Rajesh Caba attends visit today alone via video. What is the most important concern you want to discuss today? -Rajesh is wondering what good meal plans would be -She reports a family history of type 2 diabetes in her father. 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 How are you feeling about having diabetes? Down, I don't want to get the complications that my dad had. Sometimes patients forget or skip taking their diabetes medication as prescribed. How many times a week do you miss a dose? 0 Is patient taking diabetes medications as directed? Yes Patient has experienced the following symptoms: Tingling in feet. Current diabetes medications: Metformin XR (500 mg): 4 tablets (2000 mg) daily with evening meal. Wake: 7am Work: Student Time Typical Meal or Snack First Meal 1-2pm Large apple + PB OR crackers (1 handful) + cheese Second Meal 6pm [place] + rice (1c) + broccoli + salad OR chicken enchiladas OR steak/chicken + rice (1c) + vegetables Snack Varies Fruit OR smoothie: fruit (banana, rajeev, berries) + apple juice or peach rajeev juice (2c) + yogurt Reported nutrition changes: eliminated sweet tea from [employer] (was drinking x3-4/day), limiting eating after 7/8pm Alcohol Intake: None Beverages: Water, milk (10 oz), sugar free Tirado, diet Arnold Toth, sugar-free peach tea Food preparation: Self Dining Out: Did not ask Food Insecurity: Denies Current physical activity includes: strenuous walking 3-4 days a week for 30-40 minutes. Weight loss goals: goal weight of 160-170 lbs, working with weight loss clinic Objective: Ht 6' (1.829 m) Comment: Patient reported Wt 255 lb (115.7 kg) Comment: Patient reported BMI 34.58 kg/m?? Wt Readings from Last 3 Encounters: 07/08/21 255 lb (115.7 kg) 07/06/21 255 lb (115.7 kg) 05/04/21 260 lb (117.9 kg) This is an individual appointment. No class appropriate for patient at this time. Patient has not started testing her glucose levels. Lab results related to diabetes have been reviewed. Lab Results Component Value Date Hemoglobin A1C 9.1 (H) 05/13/2021 Assessment and Plan: Curriculum from session 1 in Type 2 Diabetes BASICS reviewed. Glucose monitoring: Reviewed use of new meter (Accu-Chek) and prescriptions sent to patient's pharmacy. Discussed glucose testing times and target ranges. Patient will begin testing blood sugar three times per day as instructed. Discussed safe sharps disposal. Medication plan: Due to many dietary changes made since diagnosis, no changes to medications recommended at this time. Reviewed Metformin mechanism of action, side effects, and cardiovascular benefits. Continue taking Metformin XR as prescribed. Discussed notifying PCP or [facility] if noticing side effects with 4 tablets of Metformin XR. Food Plan: Discussed eating for better health. Encouraged patient to eat three meals a day with snacks as needed. Encouraged patient to add a small meal or snack for breakfast. Discussed carbohydrate containing foods and recommended portions following the plate method. Encouraged patient to add in more servings of vegetables and fruits throughout the day Reviewed healthful smoothies ingredient options. Activity Plan: Encouraged patient to continue with current physical activity routinue. Goals: Date: Category: Goals: Progression: 07/08/2021 Monitoring Diabetes Test blood sugar three times daily. Just Starting Follow up: 08/27 at 10am video visit (will have updated A1c) This visit was conducted as a: Video Visit Location of clinician: clinic Location of patient: home Time spent on video in cyrp-tz-ninu contact with patient, if applicable: 55 minutes. Education content taught can be found in the diabetes education smartform. Visit, education, and charting overseen by Darshana Francisco RDN, LD, [facility]. documented in this encounter Plan of Treatment Upcoming Encounters Date Type Specialty Care Team Description 09/01/2022 Telemedicine [place] [address] [place], [place] [address] (Wo rk) documented as of this encounter Visit Diagnoses Diagnosis Type 2 diabetes mellitus without complic ation, without long-term current use of insulin (HRC) - Primary documented in this encounter Care Teams Field Marketing Lead Relationship Specialty Start Date End Date Felipe Baum MD PCP - General [facility] Practice 07/16/19 [address] [place] [address] documented as of this encounter
--- OUTSIDE RECORDS SUMMARY | 2022-08-31 14:56 | XMS_ITS | Encounter Summary ---
:1970 Author Organization [facility] Address [address] [address] Care Team Providers Name Role Phone Felipe Baum MD Primary Care Provider Encounter Details Date Type Department Care Team Description 07/30/2021 Orders Only HIM DEPARTMENT Provider, Juan sommers [place] [address] Social History Tobacco Use Types Packs/Day Years [...] place to sleep or slept in a mcc (including now)? Sex Assigned at Date Recorded Female 04/30/2021 11:10 AM CDT documented as of this encounter Plan of Treatment Upcoming Encounters Date Type Specialty Care Team Description 09/01/2022 Telemedicine [place] [address] [place], [place] [address] (Wo rk) documented as of this encounter Procedures Procedure Name Priority Date/Time Associated Diagnosis Comme nts SLEEP STUDY 07/30/2021 Results for thi s procedure are in the resu lts section. documented in this encounter Results SLEEP STUDY (07/30/2021) Narrative This result has an attachment that is no t available. Interface Provider DUMMY/OTHER/AR documented in this encounter Visit Diagnoses Not on filedocumented in this encounter Care Teams Attacher Relationship Specialty Start Date End Date Felipe Baum MD PCP - General Family Practice 07/16/19 [address] [place] [address] documented as of this encounter
--- OUTSIDE RECORDS SUMMARY | 2022-08-31 14:56 | XMS_ITS | Encounter Summary ---
:1970 Author Organization [email or web address] Address [address] [address] Care Team Providers Name Role Phone Felipe Baum MD Primary Care Provider Reason for Visit Reason Comments COUGH Encounter Details Date Type Department Care Team Description 08/09/2022 Nurse Triage [place] [address] Family Deysi Baum MD COUGH Medicine [address] [facility] [address] [place] [address] [place], [place] [id number] [phone] Social History Tobacco Use Types Packs/Day Years [...] place to sleep or slept in a long term (including now)? Sex Assigned at Date Recorded Female 04/30/2021 11:10 AM CDT documented as of this encounter Nursing Notes Lis Razo RN - 08/09/2022 4:17 PM CST Reason for Disposition MILD asthma attack (e.g., no SOB at rest, mild SOB with walking, speaks normally in sentences, mildwheezing) and lasting > 24 hours on prescribed treatment Protocols used: Asthma [id number] Spoke with pt. Has had intermittent dry cough for 2-3 days. Has asthma. Has been using her inhalers up to 5 times a day while awake to help with her symptoms. States that has has some mild SOB with exertion. Denies any SOB at rest. Denies any chest pain. Denies any fevers. States in the past has needed to be prescribed a steroid to help with her symptoms. All questions answered. Verbalizes understanding of info. Appointment made. Problem list reviewed as related to this call. Future Appointments Date Time Provider Department Center 08/10/2022 12:00 PM Bruce Bob MD [facility] documented in this encounter Plan of Treatment Upcoming Encounters Date Type Specialty Care Team Description 09/01/2022 Telemedicine [place] [address] [place], [place] [address] (Wo rk) documented as of this encounter Visit Diagnoses Not on filedocumented in this encounter Care Teams Electrical Electronics Engineer Relationship Specialty Start Date End Date Felipe Baum MD PCP - General Family Practice 07/16/19 [address] [place] [address] documented as of this encounter
--- OUTSIDE RECORDS SUMMARY | 2022-08-31 14:56 | XMS_ITS | Encounter Summary ---
:1970 Author Organization [facility] Address [address] [place] [address] Care Team Providers Name Role Phone Felipe Baum MD Primary Care Provider Reason for Referral Consult/Transfer Care (Routine) - New Request Specialty Diagnoses / Procedures Referred By Contact Refer red To Contact Diagnoses Chronic insomnia Stella Arriaga MD [address] [facility] [address] [place], [place] [address] Referral ID Status Reason Start Date Expiration Date Visits V isits Requested Authorized [id number] New Request 07/14/2021 10/13/2022 1 1 Scheduling Instructions Your provider has recommended an appoint ment with [facility]. This is not a sleep study order and must first be re viewed by a sleep specialist to determine the next steps. The review process looks at multiple factors including your insurance requirements, personal health history, a nd [place] [employer] guidelines. This order will be reviewed within 1 and sent to scheduling for one of the following appointments: - Consultation/Office Visit with a Slee p Medicine Specialist - Consultation/Office Visit with an Ins omnia Specialist - Portable/Home Sleep Test If you do not hear from our scheduling s taff within the next 7 days, please contact us at [phone] and select option 1. Procedure/Equipment (Routine) - Closed Specialty Diagnoses / Procedures Referred By Contact Refer red To Contact Diagnoses Sleep disturbance Snores Hypersomnia Chronic insomnia Obesity, Class II, BMI 35-39.9 (HRC) Stella Arriaga MD Procedures Sleep Diagnostic Tests: HST [address] [facility] [address] [place], [place] [address] Referral ID Status Reason Start Date Expiration Date Visits Requ ested Visits Authorized [id number] Closed 07/14/2021 10/13/2022 1 1 Reason for Visit Reason Comments CONSULT Consult/Transfer Care (Routine) - Closed Specialty Diagnoses / Procedures Referred By Contact Refer red To Contact Diagnoses Obesity (BMI 30-39.9) ([facility]) Snoring Stanislaw Sultana MD [address] [place], [place] [address] Referral ID Status Reason Start Date Expiration Date Visits Requ ested Visits Authorized [id number] Closed 05/04/2021 08/03/2022 1 1 Encounter Details Date Type Department Care Team Description 07/14/2021 Office Visit [facility] Stella Arriaga MD Mild persistent asthma without complicat ion (Primary Dx); [address] Sleep disturbance; [place] [address] [address] Snores; [phone] [place], [place] Hypersomni a; [address] Chronic insomnia; [phone] (Wo rk) Obesity, Class II, BMI 35-39.9 Social History Tobacco Use Types Packs/Day Years [...] place to sleep or slept in a correction (including now)? Sex Assigned at Date Recorded Female 04/30/2021 11:10 AM CDT documented as of this encounter Last Filed Vital Signs Vital Sign Reading Time Taken Comments Blood Pressure - - Pulse 113 07/14/2021 3:18 PM pt reported t his is CDT baseline Temperature - - Respiratory Rate - - Oxygen Saturation 95% 07/14/2021 3:18 PM CDT Inhaled Oxygen Concentration - - Weight 117 kg (258 lb) 07/14/2021 3:18 PM CDT Height 182.9 cm (6') 07/14/2021 3:18 PM CDT Body Mass Index 34.99 07/14/2021 3:18 PM CDT documented in this encounter Patient Instructions Patient InstructionsStella Arriaga MD - 07/14/2021 3:30 PM CDT Start taking symbicort 2 puffs twice a day every single day. Rinse mouth after use. Start Singulair (montelukast) 1 tablet by mouth every evening. documented in this encounter Progress Notes Stella Arriaga MD - 07/14/2021 3:30 PM CDT Consult Stella Arriaga MD [facility] ASSESSMENT/PLAN: 1. Sleep disturbance, probable Obstructive Sleep Apnea. ?? Signs and symptoms include loud snoring, chronic insomnia, obesity, DM2 and excessive daytime sleepiness. ?? Pathophysiology, treatment options, and consequences of untreated obstructive sleep apnea were discussed. ?? These consequences include hypertension, heart failure, CAD and stroke as well as daytime sleepiness with an increased risk for a car crash. ?? Treatment options were discussed, including CPAP, dental device, surgery, and weight loss. Pros, cons, and likely efficacy reviewed. ?? After discussion, she agrees to a home sleep test. ?? She will follow up with a nurse practitioner or PA. 2. Obesity. ?? Estimated body mass index is 34.99 kg/m?? as calculated from the following: ?? Height as of this encounter: 6' (1.829 m). ?? Weight as of this encounter: 258 lb (117 kg). ?? Reviewed bidirectional relationship between obesity and obstructive sleep apnea. 3. Asthma, mild persistent. ?? Appears to have allergic component based on PFTs from 2018 at which time FENO was 123. ?? She readily admits she is not very compliance with her symbicort. ?? We discussed pathophysiology of asthma and the importance of consistent use of ICS/maintenance therapy due to the risk of chronic remodeling. ?? Will add Singulair 10 mg PO once daily as well. ?? Continue albuterol PRN. ?? Follow up with me in 4 mos with fouzia and FENO prior. 4. Chronic insomnia. ?? Present for a long time; uses Lunesta. Without this, she would not be able to fall asleep well briseyda mind will start racing. ?? She is also waking up too early, likely due to PRAMOD. ?? I recommend consultation with Dr. Bourne for CBT-I; she agrees. CONSULT HPI: Rajesh Caba is a 50 y.o. female seen in consultation for obstructive sleep apnea. She has difficulty falling and staying asleep, so is taking Lunesta on a regular basis. Without it, she would be unable to turn off thoughts in order to sleep. She has struggled with obesity and was recently diagnosed with DM2. Bedtime is 10:30 PM, sleep latency under 20 min with Lunesta. Wakes frequently. Getsout of bed by 8;30 AM. She is very tired during the day and naps daily if possible. She denies sleepwalking/talking/RLS. notes her to snore loudly. She does not have morning headaches. She has asthma which is not always under good control. She wheezes daily; only takes her Symbicort perhaps 3 days a week. Uses albuterol sporadically. Unaware of any allergies. Has 2 dogs and a cat. Denies sinus congestion. NO chest pain or cough. Patient Active Problem List Diagnosis ??? Major depressive disorder, recurrent episode with seasonal pattern (HRC) ??? Anxiety disorder (HRC) ??? ADHD (attention deficit hyperactivity disorder) (HRC) ??? Low back pain (HRC) ??? Radiculopathy ??? Insomnia ??? Encounter for long-term (current) use of medications ??? Asthma (HRC) ??? Type 2 diabetes mellitus without complication, without long-term current use of insulin (HRC) PMHx/Surgical Hx reviewed. Social Hx: . 4 daughters. reports that she has never smoked. She has never used smokeless tobacco. She reports that she does not drink alcohol and does not use drugs. family history includes Alcohol Abuse in her father and mother; Brain Aneurysm in her father; Cancer in her father; Cancer, Ovary in her maternal aunt; Depression in her mother; Diabetes in her father; Kidney/Bladder Disease in her father; Stroke in her father; Substance abuse in her brother; substance abuse in her sister. There is no history of Anesthesia Reaction, Broken Bones, Clotting Disorder, Heart Disease, Osteoporosis, Rheumatologic Disease, orCancer, Breast. Father had obstructive sleep apnea Medications and allergies reviewed in EMR ROS: + weight gain. No heartburn. The remainder of the full 12 point ROS is otherwise negative except as noted above and in the HPI. Physical exam: Pulse (Abnormal) 113 Comment: pt reported this is baseline Height 6' (1.829 m) Weight 258 lb (117 kg) Oxygen Saturation 95% Body Mass Index 34.99 kg/m?? GEN: Pleasant, alert, NAD HEENT: NCAT. Oropharynx: 70% narrowing of the posterior oropharynx. no tonsillar hypertrophy. Mallampati II. Neck is supple without lymphadenopathy or masses. PULM: diffuse wheezing. No rales. No dullness to percussion. CV: RRR. No audible murmurs, clicks, or rubs. ABD: soft, non-tender, non-distended, positive bowel sounds EXT: Warm. No cyanosis or clubbing. No edema PSYCH: Pleasant, bright affect. NEURO: No tremor or dysarthria. Clinical data: Sleep questionnaire reviewed. [place] sleepiness Scale: 7 Outpatient notes reviewed. Psychiatry note reviewed. Weight management note reviewed. PFTs from 2018 reviewed by me. FENO 123 All of her questions were answered. She states understanding and agreement with my assessment and plan as outlined above. Billing based on MDM documented in this encounter Plan of Treatment Upcoming Encounters Date Type Specialty Care Team Description 09/01/2022 Telemedicine [place] [address] [place], [place] [address] (Wo rk) Scheduled Orders Name Type Priority Associated Diagnoses Order S chedule Sleep Diagnostic Sleep Study Routine Sleep disturban ce 1 Occurrences Tests: HST Snores starting 07/14/2021 Hypersomnia Chronic insomnia Obesity, Class II, BMI 35-39.9 Spirometry PFT Routine Mild persistent asthma Expec caroline: 11/14/2021, without complication Expires : 07/14/2022 Nitrous Ox Testing PFT Routine Mild persistent asthma Expected: 11/14/2021, without complication Expires : 07/14/2022 Scheduled Referrals Name Type Priority Associated Diagnoses Order S chedule Sleep Services Referral Routine Chronic insomnia Ordered: 07/14/2021 documented as of this encounter Visit Diagnoses Diagnosis Mild persistent asthma without complicat ion (HRC) - Primary Unspecified asthma Sleep disturbance Sleep disturbance, unspecified Snores Other dyspnea and respiratory abnormalit y Hypersomnia Hypersomnia, unspecified Chronic insomnia Insomnia, unspecified Obesity, Class II, BMI 35-39.9 (HRC) Obesity, unspecified documented in this encounter Care Teams Analytical Engineer Relationship Specialty Start Date End Date Felipe Baum MD PCP - General Family Practice 07/16/19 [address] [place] [address] documented as of this encounter
--- OUTSIDE RECORDS SUMMARY | 2022-08-31 14:56 | XMS_ITS | Encounter Summary ---
:1970 Author Organization [facility] Address [address], [place] [address] Care Team Providers Name Role Phone Felipe Baum MD Primary Care Provider Reason for Visit Reason Comments Lab Orders Needed Encounter Details Date Type Department Care Team Description 08/24/2021 Telephone [place] [address] Family Deysi Baum MD Lab Orders Needed Medicine [address] [facility] [address] [place] [address] [place], [place] [address] [phone] Social History Tobacco Use Types Packs/Day Years [...] place to sleep or slept in a care home (including now)? Sex Assigned at Date Recorded Female 04/30/2021 11:10 AM CDT documented as of this encounter Nursing Notes Yuridia Chacko LPN - 08/24/2021 1:22 PM CST Unable to change date of orders. Orders were replaced per providers note. Pt was notified. LDER BONER Meagan Serrano - 08/24/2021 12:18 PM CST Orders - Laboratory What lab order is being requested? Orders put in 05/27/21, Pt needs the order to be changed so she can get the labs done before the day of the appt. Why is this order being requested? Pt needs labs done today or tomorrow When were you seen last for this concern? By whom? N/A Additional comments (related to the above concern): Is it okay to leave a detailed message on your voicemail? Yes (Advise caller that the PN call back number will end with [phone] or unknown) (Instruct patient to check with insurance company for coverage) Please route to: INA Coronel LDER BONER documented in this encounter Plan of Treatment Upcoming Encounters Date Type Specialty Care Team Description 09/01/2022 Telemedicine [place] [address] [place], [place] [address] (Wo rk) documented as of this encounter Results (ABNORMAL) Albumin/Creatinine Ratio,Random Urine (08/25/2021 11:19 AM [facility]) athologist Signature Albumin/Creati 68 (H) <30 mg/g 08/25/2021 [facility] nine Ratio, 3:50 PM [facility] Urine, Random Albumin, 90.7 mg/L 08/25/2021 [facility] Urine, Random 3:50 PM [facility] Creatinine, 134 >20 mg/dL 08/25/2021 [facility] Urine, Random mg/dL 3:50 PM [facility] Specimen Anatomical Collection Method Collection Time Receive d Time (Source) Location / / Volume Laterality Urine Non-blood 08/25/2021 11:19 08/25/2021 Collection / AM [facility] 11:19 AM [facility] Unknown Felipe Baum MD LAB_1 Performing Organization Address City/State/ZIP Code Phon e Number [facility] [address] [place] [address] (ABNORMAL) Hemoglobin A1C Glycosylated (08/25/2021 10:50 AM [facility]) [facility] gist Method Time Signature Hemoglobin A1C 7.2 (H) <=5.6 % 08/25/2021 [facility] 8:38 PM [facility] Specimen Anatomical Collection Method / Collection Time Recei janie Time (Source) Location / Volume Laterality Blood Venipuncture / 08/25/2021 10:50 Unknown AM [facility] 10:50 AM [facility] Narrative [facility] - 08/25/2021 8:38 PM [facility] For patients not previously diagnosed with diabetes: 5.7-6.4%: Increased risk for diabetes 6.5% and greater: Diagnostic for diabete s For patients diagnosed with diabetes: <8.0%: Goal of therapy for ages 18-75 Clinicians may recommend a higher or low er goal for specific individuals. Felipe Baum MD LAB_1 Performing Organization Address City/State/ZIP Code Phon e Number [facility] [address] [address] (ABNORMAL) Basic Metabolic Panel (08/25/2021 10:50 AM [facility]) Analysis Performed At Patho logist Time Signature Sodium 141 136 - 145 08/25/2021 [facility] mmol/L 3:14 PM [facility] Potassium 4.8 3.5 - 5.1 08/25/2021 [facility] mmol/L 3:14 PM [facility] Chloride 108 98 - 109 08/25/2021 [facility] mmol/L 3:14 PM [facility] CO2 23 20 - 29 08/25/2021 [facility] mmol/L 3:14 PM [facility] Anion Gap 10 7 - 16 08/25/2021 [facility] mmol/L 3:14 PM [facility] Calcium 9.2 8.4 - 10.4 08/25/2021 [facility] mg/dL 3:14 PM [facility] BUN 13 7 - 26 08/25/2021 [facility] mg/dL 3:14 PM [facility] Creatinine 0.70 0.55 - 08/25/2021 [facility] 1.02 mg/dL 3:14 PM [facility] GFR, Estimated >60 >60 08/25/2021 [facility] mL/min/1.7 3:14 PM [facility] 3m2 Glucose 146 (H) 70 - 100 08/25/2021 [facility] mg/dL 3:14 PM [facility] Comment: The given reference range is fo r the fasting state. Non-fasting reference range for glucose is 70 - 180 mg/dL. Hours Fasting 10 08/25/2021 3:14 PM [facility] Specimen Anatomical Collection Method / Collection Time Recei janie Time (Source) Location / Volume Laterality Blood Venipuncture / 08/25/2021 10:50 Unknown AM [facility] 10:50 AM [facility] Felipe Baum MD LAB_1 Performing Organization Address City/State/ZIP Code Phon e Number [facility] [address] [place] [address] [facility] [address] [place] [address], [facility] documented in this encounter Visit Diagnoses Diagnosis Type 2 diabetes mellitus without complic ation, without long-term current use of insulin (HRC) - Primary Dyslipidemia (HRC) Other and unspecified hyperlipidemia documented in this encounter Care Teams Lockstitch Pocket Setter Relationship Specialty Start Date End Date Felipe Baum MD PCP - General Family Practice 07/16/19 [address] [place] [address] documented as of this encounter
--- OUTSIDE RECORDS SUMMARY | 2022-08-31 14:56 | XMS_ITS | Encounter Summary ---
:1970 Author Organization [facility] Address [address] [place] [address] Care Team Providers Name Role Phone Felipe Baum MD Primary Care Provider Reason for Referral Procedure/Equipment (Routine) - Closed Specialty Diagnoses / Procedures Referred By Contact Refer red To Contact Diagnoses Sleep disturbance Snores Hypersomnia Chronic insomnia Obesity, Class II, BMI 35-39.9 (HRC) Stella Reynolds MD Procedures Sleep Diagnostic Tests: HST [address] [facility] [address] [place], [place] [address] Referral ID Status Reason Start Date Expiration Date Visits Requ ested Visits Authorized [id number] Closed 07/14/2021 10/13/2022 1 1 EKEEPER HEAD Reason for Visit Procedure/Equipment (Routine) - Closed Specialty Diagnoses / Procedures Referred By Contact Refer red To Contact Diagnoses Sleep disturbance Snores Hypersomnia Chronic insomnia Obesity, Class II, BMI 35-39.9 (HRC) Stella Reynolds MD Procedures Sleep Diagnostic Tests: HST [address] [facility] [address] [place], [place] [address] Referral ID Status Reason Start Date Expiration Date Visits Requ ested Visits Authorized [id number] Closed 07/14/2021 10/13/2022 1 1 Encounter Details Date Type Department Care Team Description 07/30/2021 Hospital Encounter Special[facility] [facility] [address] [place] [address] Social History Tobacco Use Types Packs/Day Years [...] place to sleep or slept in a fci (including now)? Sex Assigned at Date Recorded Female 04/30/2021 11:10 AM CDT documented as of this encounter Medications at Time of Discharge Medication Sig Dispensed Refills Start Date End Date ALBUterol sulfate HFA 108 Inhale 1-2 Puffs 1 Each 11 01/16 (90 Base) MCG/ACT every 4 hours as inhalerIndications: needed for Moderate persistent asthma Wheezing. Pharmacy with acute exacerbation may substitute ([facility]) albuterol HFA inhalers based on insurance blood glucose (ACCU-CHEK Use 1 Each to test 100 Strip 11 GUIDE) test three times a day. stripIndications: Type 2 Use as directed. diabetes mellitus without complication, without long-term current use of insulin ([facility]) Blood Glucose Monitoring Use as directed. 1 Kit 0 07/08 Suppl (ACCU-CHEK GUIDE) w/Device KITIndications: Type 2 diabetes mellitus without complication, without long-term current use of insulin ([facility]) budesonide-formoterol Inhale 2 Puffs two 3 Each 2 2020 (SYMBICORT) 160-4.5 times a day. Rinse MCG/ACT mouth/gargle after inhalerIndications: use. Moderate persistent asthma with acute exacerbation (HRC) Cetirizine HCl (ZYRTEC 0 2020 ALLERGY) 10 MG CAPS ipratropium-albuterol Inhale 3 mL every 6 120 mL 1 01/28 (DUONEB) 0.5-2.5 (3) hours as needed for mg/3ml nebulizer Wheezing. solutionIndications: Moderate persistent asthma with acute exacerbation (HRC) lancets (ACCU-CHEK Use 1 Each to test 100 Each 11 1 SOFTCLIX)Indications: Type three times a day. 2 diabetes mellitus without complication, without long-term current use of insulin ([facility]) medroxyPROGESTERone 0 Acetate (DEPO-PROVERA IM) PREVIDENT 5000 SENSITIVE 0 01/19/2020 1.1-5 % paste Respiratory Therapy every 4 hours as 1 Each 0 01/03/2020 Supplies (NEBULIZER) needed (for device wheezing). Vitamins/Minerals Take 1 Tab by 0 mouth. ARIPiprazole (ABILIFY) 5 Take 1 Tablet by 45 Tablet 0 07/0208/31/2021 MG tablet mouth daily for 30 days, THEN 0.5 Tablets daily for 30 days. Replaces all previous aripiprazole scripts ALPRAZolam (XANAX) 0.5 MG Take 1 Tablet by 30 Tablet 2 06/1809/03/2021 tablet mouth daily as needed for Anxiety. DULoxetine (CYMBALTA) 30 Take 3 Capsules by 90 Capsule 2 09/01/2021 MG capsule mouth daily. Please note new dose and change in capsule strength eszopiclone (LUNESTA) 2 MG Take 1 Tablet by 30 Tablet 2 10/07/2021 tablet mouth at bedtime as needed for Other (for insomnia). metFORMIN XR (GLUCOPHAGE Take 1 Tablet by 120 Tablet 2 05/2708/25/2021 XR) 500 MG 24 hour release mouth every evening tabletIndications: Type 2 with a meal for 7 diabetes mellitus without days, THEN 2 complication, without Tablets every long-term current use of evening with a meal insulin (HRC) for 7 days, THEN 3 Tablets every evening with a meal for 7 days, THEN 4 Tablets every evening with a meal for 7 days. methylphenidate (RITALIN) Take 1 Tablet by 90 Tablet 0 07/1908/23/2021 20 MG tablet mouth three times a day. May fill on or after 07/28/21 montelukast (SINGULAIR) 10 Take 1 Tablet by 90 Tablet 3 08/15/2022 MG tabletIndications: Mild mouth every persistent asthma without evening. complication (HRC) rosuvastatin (CRESTOR) 10 Take 1 Tablet by 90 Tablet 3 05/202107/01/2022 MG tabletIndications: mouth daily. Dyslipidemia (HRC) topiramate (TOPAMAX) 50 MG Take 1 tablet in 270 Tablet 1 10/11/2021 tabletIndications: Obesity the morning and 2 (BMI 30-39.9) (HRC) in the late afternoon/evening. documented as of this encounter Progress Notes Natalie Vernon - 07/30/2021 10:30 AM CST This is a type III unattended home sleep test (diagnostic). The study was scored using the 3% AASM hypopnea rule. Total recording was 8 hours and 8 minutes with an estimated sleep efficiency of 82%. Snoring was mild to moderate. NSR EKG noticed. Signals were inverted at times for scoring. Overall study quality was good. EKEEPER HEAD documented in this encounter Procedure Notes Stella Reynolds MD - 07/30/2021 12:00 AM CST NAME: RAJESH STEVENS CSN: [id number] OUTPATIENT/CLINIC PROCEDURE DATE OF SERVICE: 07/30/2021 : 1970 STUDY PERFORMED: Type 3 limited home sleep test. INDICATION: To evaluate for obstructive sleep apnea in this 50-year-old female with a history of obesity. DESCRIPTION: Total recording time was 489 minutes. No cardiac arrhythmias were seen. Supine positioning was noted throughout much of the study. The entire study is without CPAP. Severe obstruction was noted. RDI 43. GEORGE 44 with oxygen desaturation to 77%. IMPRESSION: Severe obstructive sleep apnea, RDI 43. GEORGE 44 with oxygen desaturation to 77%. PLAN: The patient will follow up in the pulmonary sleep disorders clinic. Recommend APAP 5-15 cm water pressure. STELLA REYNOLDS MD LMB/AQS /[id number] EKEEPER HEAD documented in this encounter Plan of Treatment Upcoming Encounters Date Type Specialty Care Team Description 09/01/2022 Telemedicine [place] [address] [place], [place] [address] (Wo rk) Scheduled Orders Name Type Priority Associated Diagnoses Order S chedule Sleep Diagnostic Sleep Study Routine Sleep disturban ce 1 Occurrences starting Tests: HST Snores 07/30/2021 until Hypersomnia 07/30/2021 Chronic insomnia Obesity, Class II, BMI 35-39.9 documented as of this encounter Visit Diagnoses Diagnosis Obstructive sleep apnea (adult) (pediatr ic) - Primary Sleep disturbance Sleep disturbance, unspecified Snores Other dyspnea and respiratory abnormalit y Hypersomnia Hypersomnia, unspecified Chronic insomnia Insomnia, unspecified Obesity, Class II, BMI 35-39.9 (HRC) Obesity, unspecified documented in this encounter Care Teams Deep Fat Cook Fry Relationship Specialty Start Date End Date Felipe Baum MD PCP - General Family Practice 07/16/19 [address] [place] [address] documented as of this encounter
--- OUTSIDE RECORDS SUMMARY | 2022-08-31 14:56 | XMS_ITS | Encounter Summary ---
:1970 Author Organization [facility] Address [address] [place] [address] Care Team Providers Name Role Phone Felipe Baum MD Primary Care Provider Reason for Visit Reason Comments Follow-up Encounter Details Date Type Department Care Team Description 07/06/2021 Telemedicine [facility] Georges Samuel PA-C [address] [facility] [address] [place] [address] Type 2 diabetes mellitus without complic ation, without long- term current use of insulin (HRC) (Primary Dx); Center Bariatric Stanislaw Sultana MD [address] [place], [place] [id number] Moderate persistent asthma without compl ication; Surgery Major depressive disorder, r ecurrent episode with seasonal pattern (HRC); [address] [facility] [address]. Anxiety disorder, unspecifie d type; [place], [place] Attention de ficit hyperactivity disorder (ADHD), unspecified ADHD type; [address] Obesity (BMI 30-39.9) [phone] Social History Tobacco Use Types Packs/Day Years [...] - - Weight 115.7 kg (255 lb) 07/06/2021 9:16 AM CDT Height 182.9 cm (6') 07/06/2021 9:16 AM CDT Body Mass Index 34.58 07/06/2021 9:16 AM CDT documented in this encounter Patient Instructions Patient InstructionsStStanislaw oliveira MD - 07/06/2021 12:00 PM CDT Look into establishing with an outside psychologist. Schedule appointment soon as they likely book out. Increase topamax. Increase exercise. documented in this encounter Progress Notes Stanislaw Sultana MD - 07/06/2021 12:00 PM CDT MEDICAL WEIGHT MANAGEMENT PROGRESS NOTE CHIEF COMPLAINT: Rajesh Caba is a 50 y.o. female with chronic medical problems including DM2, asthma, depression, anxiety, ADHD, and insomnia, who was referred/seeks to treat the following obesity-associated medical conditions by aggressive management of weight: DM2, asthma, sleep disturbance, weight-bearing joint pain, fatigue, and low back pain. INTERIM HISTORY: Initial consult 04/2021. Patient interested in medical weight management. Topamax started. Consult labs showed progression of IFG to uncontrolled DM2. She is now on metformin through PCP. Weight is down over 5 lb. She met with a dietitian. She has stopped drinking sweetened iced tea. 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 Establishing with a general psychologist was recommended and she would like to do this. Night eating is improving. She finds Topamax helpful for that. She is walking for exercise. She has an upcoming consult with pulmonology for possible sleep apnea. Previous medication trials for weight loss: - [...] lb Starting Weight: 260 lb Current Weight: 255 lb Height (in): 72 Weight Calculations Excess Weight: 88 lb Current Weight Loss: 5 lb Goal Weight: 172 lb Starting BMI: 35.2385731116231 Percent Exess Weight Loss: 5.89815218565917 Current BMI: 34.8383117709291 Percent Totoal Body Weight Loss: 1.71815406987733 WEIGHT HISTORY: Wt Readings from Last 3 Encounters: 07/06/21 255 lb (748910 g) 05/04/21 260 lb (523944 g) 01/28/21 240 lb (974562 g) Weight Management Center Assessment: Updating Your Care Team 1. Have you been working on any lifestyle goals since your last visit?: Yes 4. How many hours of sleep to you get per night?: 6-7 hours 7. Do you drink sugar-sweetened beverages (regular soda or sweetened coffee or tea)?: Yes 8. What would you like to discuss today?: Medication abs surgery Post-surgical information: 5. Does the patient snack?: Neg Patient reports being tall, thin, and very active through her 30s. Had weight gain starting around age 40 with her 4th and taking Abilify for depression. REVIEW OF SYSTEMS: Patient is experiencing the following symptoms/problems: Emotional Eating, Mood Changes PAST MEDICAL HISTORY: Past Medical History: Diagnosis Date ??? ADHD (attention deficit hyperactivity disorder) (HRC) 11/30/2011 ??? Anxiety (HRC) ??? Anxiety disorder NOS 11/30/2011 ??? Depression ??? Insomnia, unspecified 08/02/2013 ??? Low back [...] without long-term current use of insulin (HRC) MEDICATIONS: Outpatient Medications Prior to Visit Medication Sig Note Dispense Refill ??? ALBUterol sulfate HFA 108 (90 Base) MCG/ACT inhaler Inhale 1-2 Puffs every 4 hours as needed forWheezing. Pharmacy may substitute albuterol HFA inhalers based on insurance 1 Each 11 ??? ALPRAZolam (XANAX) 0.5 MG tablet Take 1 Tablet by mouth daily as needed for Anxiety. 30 Tablet 2 ??? ARIPiprazole (ABILIFY) 5 MG tablet Take 1 Tablet by mouth daily for 30 days, THEN 0.5 Tablets daily for 30 days. Replaces all previous aripiprazole scripts 45 Tablet 0 ??? budesonide-formoterol (SYMBICORT) 160-4.5 MCG/ACT inhaler Inhale 2 Puffs two times a day. Rinse mouth/gargle after use. 3 Each 2 ??? Cetirizine HCl (ZYRTEC ALLERGY) 10 MG CAPS ??? DULoxetine (CYMBALTA) 30 MG capsule Take 3 Capsules by mouth daily. Please note new dose and change in capsule strength 90 Capsule 2 ??? eszopiclone (LUNESTA) 2 MG tablet Take 1 Tablet by mouth at bedtime as needed for Other (for insomnia). 30 Tablet 2 ??? ipratropium-albuterol (DUONEB) 0.5-2.5 (3) mg/3ml nebulizer solution Inhale 3 mL every 6 hours as needed for Wheezing. 120 mL 1 ??? medroxyPROGESTERone Acetate (DEPO-PROVERA IM) ??? metFORMIN XR (GLUCOPHAGE XR) 500 MG 24 hour release tablet Take 1 Tablet by mouth every evening with a meal for 7 days, THEN 2 Tablets every evening with a meal for 7 days, THEN 3 Tablets every evening with a meal for 7 days, THEN 4 Tablets every evening with a meal for 7 days. 120 Tablet 2 ??? methylphenidate (RITALIN) 20 MG tablet Take 1 Tablet by mouth three times a day. May fill on or after 06/30/21 90 Tablet 0 ??? PREVIDENT 5000 SENSITIVE 1.1-5 % paste ??? Respiratory Therapy Supplies (NEBULIZER) device every 4 hours as needed (for wheezing). 1 Each 0 ??? rosuvastatin (CRESTOR) 10 MG tablet Take 1 Tablet by mouth daily. 90 Tablet 3 ??? Vitamins/Minerals Take 1 Tab by mouth. 01/30/2018: Received from: [facility] Received Sig: Take 1 tablet by mouth daily ??? topiramate (TOPAMAX) 25 MG tablet Take 1 Tablet by mouth two times a day. 60 Tablet 2 No facility-administered medications prior to visit. ALLERGIES: [...] VITAL SIGNS: Ht 6' (182.9 cm) Wt 255 lb (537717 g) BMI 34.58 kg/m?? Wt Readings from Last 3 Encounters: 07/06/21 255 lb (625560 g) 05/04/21 260 lb (594745 g) 01/28/21 240 lb (178897 g) GENERAL: The patient appears in no acute distress. PSYCHIATRIC: Alert and oriented x 3. Affect is appropriate. Labs: Reviewed ASSESSMENT/PLAN: We will continue to treat the following obesity-associated medical conditions and conditions exacerbated by or contributing to weight gain by aggressive management of weight: ICD-10-CM 1. Type 2 diabetes mellitus without complication, without long-term current use of insulin (HRC) E11.9 2. Moderate persistent asthma without complication (HR) J45.40 3. Major depressive disorder, recurrent episode with seasonal pattern ([facility]) F33.9 4. Anxiety disorder, unspecified type ([facility]) F41.9 5. Attention deficit hyperactivity disorder (ADHD), unspecified ADHD type ([facility]) F90.9 6. Obesity (BMI 30-39.9) ([facility]) E66.9 topiramate (TOPAMAX) 50 MG tablet The patient would like to continue a medical intervention for weight loss at this time. BMI is now less than 35. 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 She met with bariatric psychologist and establishing with an outside psychologist was recommended. She agrees to do this. -Nutrition: Patient has an upcoming appointment with Diabetes Education. Follow-up with bariatric ash worker PRN. -Exercise: Increase. Resume gym exercise. -Medications: Increase Topamax to 50 mg in the morning and 100 mg in the evening. She has no history of nephrolithiasis and is on Depo. Continue metformin per PCP. -Patient is currently taking the following medicaton with the potential side effect of weight loss:Ritalin -Patient is currently taking the folllwing medications with the potential side effect for weight gain: Abilify (she is working with her psychiatrist on weaning this), Depo (she is likely close to menopause and might consider stopping his) -Potential future medications to trial for additional weight loss include the following: GLP1 Ag, naltrexone (for food addiction, patient has a strong family history of substance abuse), Vyvanse in place of Ritalin (if more evidence of binge eating and if okayed by psychiatrist) -The following weight-loss medications may not be recommended for this patient: Phentermine (anxiety, insomnia), Wellbutrin (lost effectiveness for depression previously, but no side effects, so couldconsider) -Other: Pulmonology consult as scheduled. Follow up with me: in 3-4 months. This service was provided via telehealth and conducted using a synchronous audiovideo link. Location of clinician: clinic Location of patient: home Time spent on video in [id number] contact with patient, if applicable: N/A documented in this encounter Nursing Notes Emily Crowell RN - 07/06/2021 12:00 PM CDT Patient self roomed using mobile check in. Last seen on 05/04/21 with recorded weight of 260 lbs. Weight History: Bariatric Weight History and Calculations Weight History Age at Onset of Obesity: 45 Highest Adult Weight: 260 lb Preferred Weight: 150 lb Lowest Adult Weight: 140 lb At what weight would you not be disappointed?: 175 lb Starting Weight: 260 lb Current Weight: 255 lb Height (in): 72 Weight Calculations Excess Weight: 88 lb Current Weight Loss: 5 lb Goal Weight: 172 lb Starting BMI: 35.0261115144166 Percent Exess Weight Loss: 5.24841040096699 Current BMI: 34.4628115394332 Percent Totoal Body Weight Loss: 1.97887845807447 Measurements Do you have a scale? YES - 255 lb. Do you have a BP cuff? NO Eating patterns Patient is experiencing the following symptoms/problems: Emotional Eating, Mood Changes Medications: Compliance: YES Side effects: NO Patient would like to discuss: Medication and surgery Emily Crowell RN 9:16 AM 07/06/2021 documented in this encounter Plan of Treatment Upcoming Encounters Date Type Specialty Care Team Description 09/01/2022 [facility] [place] [address] [place], [place] [address] (Wo rk) documented as of this encounter Visit Diagnoses Diagnosis Type 2 diabetes mellitus without complic ation, without long-term current use of insulin (HRC) - Primary Moderate persistent asthma without compl ication (HRC) Unspecified asthma Major depressive disorder, recurrent epi sode with seasonal pattern (HRC) Anxiety disorder, unspecified type (HRC) Attention deficit hyperactivity disorder (ADHD), unspecified ADHD type (HRC) Obesity (BMI 30-39.9) (HRC) Obesity, unspecified documented in this encounter Care Teams Director Consumer Affairs Relationship Specialty Start Date End Date Felipe Baum MD PCP - General Family Practice 07/16/19 [address] [place] [address] (work) documented as of this encounter
--- OUTSIDE RECORDS SUMMARY | 2022-08-31 14:56 | XMS_ITS | Encounter Summary ---
:1970 Author Organization [facility] Address [address] [place] [address] Care Team Providers Name Role Phone Felipe Baum MD Primary Care Provider Encounter Details Date Type Department Care Team Description 10/12/2021 Notes/Orders [facility] & Stanislaw Sultana MD Weight Center [address] [facility]. [address] [place] [address] [phone] (Wo rk) Social History Tobacco Use Types [...] place to sleep or slept in a jail (including now)? Sex Assigned at Date Recorded Female 04/30/2021 11:10 AM CDT documented as of this encounter Progress Notes Stanislaw Sultana MD - 10/12/2021 4:31 PM CST Prior authorization for Ozempic denied. Victoza preferred. Please notify patient that this is a similar medication, but is a daily injection instead of weekly. Bummer, but worth it I believe. She should start with 0.6 mg daily for 2 weeks and then increase to 1.2 mg daily if tolerating. Again monitor for nausea. Thanks! R BOILER documented in this encounter Plan of Treatment Upcoming Encounters Date Type Specialty Care Team Description 09/01/2022 Telemedicine [place] [address] [place], [place] [address] (Wo rk) documented as of this encounter Visit Diagnoses Not on filedocumented in this encounter Care Teams Geriatric Nursing Assistant Relationship Specialty Start Date End Date Felipe Baum MD PCP - General Family Practice 07/16/19 [address] [place] [address] documented as of this encounter
--- OUTSIDE RECORDS SUMMARY | 2022-08-31 14:56 | XMS_ITS | Encounter Summary ---
:1970 Author Organization [facility] Address [address], [place] [address] Care Team Providers Name Role Phone Felipe Baum MD Primary Care Provider Reason for Visit Reason Comments Refill Encounter Details Date Type Department Care Team Description 02/26/2022 Refill [place] [facility] & Stanislaw Sultana MD Refill Weight Center [address] [facility] [address] [facility] [address] [place] [address] [place] [address] [phone] Social History Tobacco Use Types Packs/Day Years [...] place to sleep or slept in a skilled nursing (including now)? Sex Assigned at Date Recorded Female 04/30/2021 11:10 AM CDT documented as of this encounter Nursing Notes Edie Morales RN - 02/28/2022 8:53 AM CDT [facility] pt Last seen on 10/11/[address] Stanislaw Sultana. Future appointment is scheduled on 03/02/22. Follow up requested by provider: 3-4 mos Since last seen she has no showed or cancelled the following appointments: /JACQUELINE on 01/10/22 Last dispensed: (copy and paste last Rx written) liraglutide liraglutide (,,VICTOZA) 18 MG/3ML SOPN injection Inject 1.2 mg subcutaneously daily., Disp-6 mL, R-0, DAILY Starting 12/25/2021, Subcutaneous, E-Prescribing Dispense: 6 mL Refills: 0 ordered Edie Morales RN 8:53 AM 02/28/2022 documented in this encounter Plan of Treatment Upcoming Encounters Date Type Specialty Care Team Description 09/01/2022 Telemedicine [place] [address] [place], [place] [address] (Wo rk) documented as of this encounter Visit Diagnoses Not on filedocumented in this encounter Care Teams Dx Board Operator Relationship Specialty Start Date End Date Felipe Baum MD PCP - General Family Practice 07/16/19 [address] [place] [address] documented as of this encounter
--- OUTSIDE RECORDS SUMMARY | 2022-08-31 14:56 | XMS_ITS | Encounter Summary ---
:1970 Author Organization [facility] Address [address], [place] [address] Care Team Providers Name Role Phone Felipe Parker MD Primary Care Provider Reason for Visit Reason Comments Refill metFORMIN XR (GLUCOPHAGE XR) 500 MG 24 hour release tablet [Pharmacy Med Name: metFORMIN HCl ER Oral Tablet Extended Release 24 Hour 500 MG] Encounter Details Date Type Department Care Team Description 04/08/2022 Refill [place] [address] Family Deysi Parker MD Refill (metFORMIN XR Medicine [address] [facility] [address] (GLUCOPHAGE XR) 500 MG [address] [place] [address] 24 hour release tablet [place], [place] [phone] (Wo rk) [Pharmacy Med Name: [id number] metFORMIN HCl ER Oral [phone] Tablet Extended Release 24 Hour 500 MG] ) Social History Tobacco Use Types Packs/Day Years [...] place to sleep or slept in a retirement (including now)? Sex Assigned at Date Recorded Female 04/30/2021 11:10 AM CDT documented as of this encounter Nursing Notes Rafael Guerrero, RN - 04/08/2022 11:56 AM CDT Further Assistance Needed on Refill from Clinician RN reviewed. New medication within the past year. Requesting 90 day supply. Last qualifying visit: 12/02/2021 (with FELIPE PARKER) Next scheduled visit: None Review pended order for accuracy. Sign if appropriate. Document if appointment is needed for furtherrefills. Route to care team to notify patient if needed. Requested Prescriptions Pending Prescriptions Disp Refills metFORMIN XR (GLUCOPHAGE XR) 500 MG 24 hour release tablet [Pharmacy Med Name: metFORMIN HCl ER Oral Tablet Extended Release 24 Hour 500 MG] 360 Tablet 2 Sig: Take 4 Tablets by mouth every evening with a meal. Interface, Out Symphony Dynamo Prov Query - 04/08/2022 4:23 AM CDT metFORMIN XR (GLUCOPHAGE XR) 500 MG 24 hour release tablet [Pharmacy Med Name: metFORMIN HCl ER OralTablet Extended Release 24 Hour 500 MG] Medication started: 05/27/2021 Last ordered by FELIPE PARKER S: 08/27/2021 (224 days ago) QTY: 360, Refills: 1, Sig: take 4 tablets by mouth every evening with a meal. (unchanged) -> Refill x 9 months, qty: 360, refills: 2 (until due for a(n) Cr check and HBA1C check) Last qualifying visit: 12/02/2021 (with FELIPE PARKER) Next scheduled visit: None Cr: 0.8 mg/dL on 11/30/2021 HBA1C: 6.5 % on 11/30/2021 [facility] [employer] Embedded Refills, Reference: [id number], 04/08/2022 4:23:50 AM CDT, Pool: JAVIER REFILL ([id number]) Interface, Out Surescripts Prov Query - 04/08/2022 4:23 AM CDT The following lab order(s) may be associated with the Result Note below: HGB A1C; BASIC METABOLIC PANEL Notes recorded by Felipe Parker MD on 12/02/2021 at 3:38 PM CDT Discussed results with patient. documented in this encounter Plan of Treatment Upcoming Encounters Date Type Specialty Care Team Description 09/01/2022 Telemedicine [place] [address] [place], [place] [address] (Wo rk) documented as of this encounter Visit Diagnoses Diagnosis Type 2 diabetes mellitus without complic ation, without long-term current use of insulin (HRC) documented in this encounter Care Teams Communications Assistant Relationship Specialty Start Date End Date Felipe Parker MD PCP - General Family Practice 07/16/19 [address] [place] [address] documented as of this encounter
--- OUTSIDE RECORDS SUMMARY | 2022-08-31 14:56 | XMS_ITS | Encounter Summary ---
:1970 Author Organization [facility] Address [address] [address] Care Team Providers Name Role Phone Felipe Baum MD Primary Care Provider Encounter Details Date Type Department Care Team Description 07/30/2021 Orders Only HIM DEPARTMENT Provider, Juan sommers [place] [address] Social History Tobacco Use Types Packs/Day Years [...] 09/01/2022 Telemedicine [place] [address] [place], [place] [address] (Wo rk) documented [...] on filedocumented in this encounter Care Teams Skin Pass Operator Relationship Specialty Start Date End Date Felipe Baum MD PCP - General Family Practice 07/16/19 [address] [place] [address] documented as of this encounter
--- OUTSIDE RECORDS SUMMARY | 2022-08-31 14:56 | XMS_ITS | Encounter Summary ---
:1970 Author Organization [facility] Address [address], [place] [address] Care Team Providers Name Role Phone Felipe Baum MD Primary Care Provider Reason for Visit Reason Comments Refill Encounter Details Date Type Department Care Team Description 08/16/2022 Refill [facility] Stella Arriaga MD Refill [address] [place] [address] [place], [place] [id number] (Wo rk) Social History Tobacco Use Types [...] place to sleep or slept in a snf (including now)? Sex Assigned at Date Recorded Female 04/30/2021 11:10 AM CDT documented as of this encounter Plan of Treatment Upcoming Encounters Date Type Specialty Care Team Description 09/01/2022 Telemedicine [place] [address] [place], [place] [address] (Wo rk) documented as of this encounter Visit Diagnoses Diagnosis Mild persistent asthma without complicat ion (HRC) Unspecified asthma documented in this encounter Care Teams Dandy Tender Relationship Specialty Start Date End Date Felipe Baum MD PCP - General Family Practice 07/16/19 [address] [place] [address] documented as of this encounter
--- OUTSIDE RECORDS SUMMARY | 2022-08-31 14:56 | XMS_ITS | Encounter Summary ---
:1970 Author Organization [facility] Address [address], [place] [address] Care Team Providers Name Role Phone Felipe Baum MD Primary Care Provider Reason for Visit Reason Comments Video Visit Follow-up Encounter Details Date Type Department Care Team Description 03/02/2022 Telemedicine [facility] Stanislaw Sultana, Type 2 diabetes mellitus without complication, without long-term current use of insulin (HRC) (Primary Dx); Center Bariatric MD Severe obstructive sleep apnea; Surgery [address] Major depressive disorder, r ecurrent episode with seasonal pattern (HRC); [address] [facility] [address] Anxiety disorder, unspecified type; [place], [place] Attenti on deficit hyperactivity disorder (ADHD), unspecified ADHD type; [id number] Obesity (BMI 30-39.9) [phone] Social History Tobacco Use Types Packs/Day Years [...] place to sleep or slept in a detention (including now)? Sex Assigned at Date Recorded Female 04/30/2021 11:10 AM CDT documented as of this encounter Last Filed Vital Signs Vital Sign Reading Time Taken Comments Blood Pressure - - Pulse - - Temperature - - Respiratory Rate - - Oxygen Saturation - - Inhaled Oxygen Concentration - - Weight 107.5 kg (237 lb) 03/02/2022 9:53 AM CDT Height 182.9 cm (6') 03/02/2022 9:53 AM CDT Body Mass Index 32.14 03/02/2022 9:53 AM CDT documented in this encounter Progress Notes Stanislaw Sultana MD - 03/02/2022 2:00 PM CDT MEDICAL WEIGHT MANAGEMENT PROGRESS NOTE [...] interested in MWM. On metformin through PCP. Hx of night eating around 8-9 p.m. when Ritalin wears off, but is now working evenings, which has helped. On Topamax and victoza. Good weight loss, but some fluctuations. Bariatric psychologist recommended establishing with an outside psychologist and she is planning to find someone through her EAP program at work. Less gymexercise with current work schedule, but still active. She has severe sleep apnea and is working on increasing CPAP use (struggles with claustrophobia, mouth breathing). Previous medication trials for weight loss: - Wellbutrin: Taken for depression, no weight loss, became less effective for mood - On Ritalin: Sometimes helpful for appetite, no obvious weight change - Ozempic: Not affordable, never started Patient's weight history is as follows: Bariatric Weight History and Calculations Weight History Age at Onset of Obesity: 45 Highest Adult Weight: 260 lb Preferred Weight: 150 lb Lowest Adult Weight: 140 lb At what weight would you not be disappointed?: 175 lb Starting Weight: 260 lb Current Weight: 237 lb Height (in): 72 Weight Calculations Excess Weight: 88 lb Current Weight Loss: 23 lb Goal Weight: 172 lb Starting BMI: 35.34 Percent Exess Weight Loss: 26 Current BMI: 32.21 Percent Totoal Body Weight Loss: 9 WEIGHT HISTORY: Wt Readings from Last 3 Encounters: 03/02/22 237 lb (187584 g) 01/20/22 243 lb 3.2 oz (984096 g) 10/26/21 245 lb (713073 g) [facility] Assessment: Updating Your Care Team 1. Have you been working on any lifestyle goals since your last visit?: Yes 4. How many hours of sleep to you get per night?: 4-5 hours 7. Do you drink sugar-sweetened beverages (regular soda or sweetened coffee or tea)?: Yes 8. What would you like to discuss today?: Progress Post-surgical information: 5. Does the patient snack?: Pos The patient notes the following snacking habits: It depends Patient reports being tall, thin, and very active through her 30s. Had weight gain starting around age 40 with her 4th and taking Abilify for depression. REVIEW OF SYSTEMS: Patient is experiencing the following symptoms/problems: Back Pain MEDICATIONS: Outpatient Medications Prior to Visit Medication Sig Note Dispense Refill ??? ALBUterol sulfate HFA 108 (90 Base) MCG/ACT inhaler Inhale 1-2 Puffs every 4 hours as needed forWheezing. Pharmacy may substitute albuterol HFA inhalers based on insurance 1 Each 11 ??? ALPRAZolam (XANAX) 0.5 MG tablet Take 1 Tablet (0.5 mg) by mouth daily as needed for Anxiety. Replaces all previous alprazolam scripts 30 Tablet 5 ??? ARIPiprazole (ABILIFY) 15 MG tablet Take 0.5 Tablets (7.5 mg) by mouth daily. 15 Tablet 5 ??? blood glucose (ACCU-CHEK GUIDE) test strip [...] (CYMBALTA) 60 MG capsule Take 2 Capsules (120 mg) by mouth daily. 60 Capsule 5 ??? eszopiclone (LUNESTA) 2 MG tablet Take 1 Tablet (2 mg) by mouth at bedtime as needed for Other (for insomnia). 30 Tablet 5 ??? insulin pen needle (BD PEN NEEDLE THOMAS U/F) 32G X 4 MM Inject 1 Each subcutaneously daily. with pen injector device. Each needle is for one time use only 100 Each 3 ??? ipratropium-albuterol (DUONEB) 0.5-2.5 (3) mg/3ml nebulizer solution Inhale 3 mL every 6 hours as needed for Wheezing. 120 mL 1 ??? lancets (ACCU-CHEK SOFTCLIX) Use 1 Each to test three times a day. 100 Each 11 ??? liraglutide (VICTOZA) 18 MG/3ML SOPN injection Inject 1.2 mg subcutaneously daily. 3 mL 0 ??? lisinopril (ZESTRIL) 2.5 MG tablet Take 1 Tablet by mouth daily. 90 Tablet 3 ??? medroxyPROGESTERone Acetate (DEPO-PROVERA IM) ??? metFORMIN XR (GLUCOPHAGE XR) 500 MG 24 hour release tablet Take 4 Tablets by mouth every eveningwith a meal. 360 Tablet 1 ??? methylphenidate (RITALIN) 20 MG tablet Take 1 Tablet (20 mg) by mouth three times a day. Do not start before 02/11/22 90 Tablet 0 ??? montelukast (SINGULAIR) 10 MG tablet Take 1 Tablet by mouth every evening. 90 Tablet 3 ??? PREVIDENT 5000 SENSITIVE 1.1-5 % paste ??? Respiratory Therapy Supplies (NEBULIZER) device every 4 hours as needed (for wheezing). 1 Each 0 ??? rosuvastatin (CRESTOR) 10 MG tablet Take 1 Tablet by mouth daily. 90 Tablet 3 ??? topiramate (TOPAMAX) 50 MG tablet Take 1 tablet in the morning and 3 in the late afternoon/evening. 360 Tablet 1 ??? Vitamins/Minerals Take 1 Tab by mouth. 01/30/2018: Received from: Emilie Received Sig: Take 1 tablet by mouth daily No facility-administered medications prior to visit. ALLERGIES: No Known Allergies SOCIAL HISTORY: Social History Tobacco Use ??? Smoking status: Never Smoker ??? Smokeless tobacco: Never Used Substance Use Topics ??? Alcohol use: No PHYSICAL EXAM: VITAL SIGNS: Ht 6' (182.9 cm) Wt 237 lb (027911 g) BMI 32.14 kg/m?? Wt Readings from Last 3 Encounters: 03/02/22 237 lb (211543 g) 01/20/22 243 lb 3.2 oz (715941 g) 10/26/21 245 lb (373561 g) GENERAL: The patient appears in no acute distress. PSYCHIATRIC: Alert and oriented x 3. Affect is appropriate. Labs: Reviewed ASSESSMENT/PLAN: We will continue to treat the following obesity-associated medical conditions and conditions exacerbated by or contributing to weight gain by aggressive management of weight: ICD-10-CM 1. Type 2 diabetes mellitus without complication, without long-term current use of insulin ([facility]) E11.9 2. Severe obstructive sleep apnea G47.33 3. Major depressive disorder, recurrent episode with seasonal pattern ([facility]) F33.9 4. Anxiety disorder, unspecified type ([facility]) F41.9 5. Attention deficit hyperactivity disorder (ADHD), unspecified ADHD type ([facility]) F90.9 6. Obesity (BMI 30-39.9) ([facility]) E66.9 The patient would like to continue a medical intervention for weight loss at this time. BMI is now less than 35. -The patient does have signs of emotionally dysregulated food intake and/or eating disorder - nighteating syndrome. This is improving with a change in her work schedule. She met with bariatric psychologist and establishing with an outside psychologist was recommended. She plans to establish with someone through her EAP program at [employer]. -Nutrition: Patient worked with the [facility] for her diabetes. Follow-up with bariatric studio musician PRN. -Exercise: Resume regular gym exercise. Add more resistance training. -Medications: Continue Topamax 50 mg in the morning and 150 mg in the evening. She has no history of nephrolithiasis and is on Depo. Continue metformin per PCP. Increase victoza to 1.8 mg daily. Patient denies any personal or family history [...] CPAP use. Follow up with me: in 4-5 months. This service was provided via telehealth and conducted using a synchronous audiovideo link. Location of clinician: home Location of patient: home Time spent on video in [id number] contact with patient, if applicable: N/A documented in this encounter Nursing Notes Luly Segura LPN - 03/02/2022 2:00 PM CDT Standard rooming via telephone with follow up SmartForm completed. Last seen on 10-11-21 with recorded weight of 248 lbs. Weight History: Bariatric Weight History and Calculations Weight History Age at Onset of Obesity: 45 Highest Adult Weight: 260 lb Preferred Weight: 150 lb Lowest Adult Weight: 140 lb At what weight would you not be disappointed?: 175 lb Starting Weight: 260 lb Current Weight: 237 lb Height (in): 72 Weight Calculations Excess Weight: 88 lb Current Weight Loss: 23 lb Goal Weight: 172 lb Starting BMI: 35.34 Percent Exess Weight Loss: 26 Current BMI: 32.21 Percent Totoal Body Weight Loss: 9 Measurements Do you have a scale? YES - 237 lb. Do you have a BP cuff? NO Eating patterns Patient is experiencing the following symptoms/problems: Back Pain Medications: Compliance: YES Side effects: NO Would like to discuss: PROGRESS Luly Segura LPN 9:53 AM 03/02/2022 documented in this encounter Plan of Treatment Upcoming Encounters Date Type Specialty Care Team Description 09/01/2022 Telemedicine [place] [address] [place], [place] [address] (Wo rk) documented as [...] unspecified documented in this encounter Care Teams Alteration Hand Relationship Specialty Start Date End Date Felipe Baum MD PCP - General Family Practice 07/16/19 [address] [place] [address] documented as of this encounter
--- OUTSIDE RECORDS SUMMARY | 2022-08-31 14:56 | XMS_ITS | Encounter Summary ---
:1970 Author Organization [facility] Address [address] [address] Care Team Providers Name Role Phone Felipe Parker MD Primary Care Provider Reason for Visit Reason Comments Refill rosuvastatin (CRESTOR) 10 MG tablet [Pharmacy Med Name: Rosuvastatin Calcium Oral Tablet 10 MG] Encounter Details Date Type Department Care Team Description 06/26/2022 Refill [place] [address] Family Deysi Parker MD Refill (rosuvastatin Medicine [address] (CRESTOR) 10 MG tablet [address] [place] [address] [Pharmacy Med Name: [place], [place] [phone] (Wo rk) Rosuvastatin Calcium [id number] Oral Tablet 10 MG]) [phone] Social History Tobacco Use Types Packs/Day Years [...] place to sleep or slept in a alf (including now)? Sex Assigned at Date Recorded Female 04/30/2021 11:10 AM CDT documented as of this encounter Nursing Notes Shanell Radford RN - 07/01/2022 11:40 AM CDT Renewed medication per medication refill protocol. Requested Prescriptions Pending Prescriptions Disp Refills ??? rosuvastatin (CRESTOR) 10 MG tablet [Pharmacy Med Name: Rosuvastatin Calcium Oral Tablet 10 MG] 90 Tablet 1 Sig: Take 1 Tablet by mouth daily Interface, Out Surescripts Prov Query - 06/26/2022 2:23 AM CDT rosuvastatin (CRESTOR) 10 MG tablet [Pharmacy Med Name: Rosuvastatin Calcium Oral Tablet 10 MG] Medication started: 05/27/2021 Last ordered by FELIPE PARKER S: 05/27/2021 (395 days ago) QTY: 90, Refills: 3, Sig: take 1 tablet by mouth daily. (unchanged) -> The most recent order on 05/27/2022. -> Refill x 6 months, qty: 90, refills: 1 (until due for an office visit) Last qualifying visit: 12/02/2021 (with FELIPE PARKER) Next scheduled visit: None [employer] Embedded Refills, Reference: [id number], 06/26/2022 2:23:24 AM CDT, Pool: JAVIER REFILL ([id number]) documented in this encounter Plan of Treatment Upcoming Encounters Date Type Specialty Care Team Description 09/01/2022 Telemedicine [place] [address] [place], [place] [address] (Wo rk) documented as of this encounter Visit Diagnoses Diagnosis Dyslipidemia (HRC) Other and unspecified hyperlipidemia documented in this encounter Care Teams Overlay Plastician Relationship Specialty Start Date End Date Felipe Parker MD PCP - General Family Practice 07/16/19 [address] [place] [address] documented as of this encounter
--- OUTSIDE RECORDS SUMMARY | 2022-08-31 14:57 | XMS_ITS | Encounter Summary ---
:1970 Author Organization [facility] Address [address], [place] [address] Care Team Providers Name Role Phone Felipe Baum MD Primary Care Provider Reason for Referral Medication Prior Authorization - Closed Specialty Diagnoses / Procedures Referred By Contact Refer red To Contact Diagnoses Moderate persistent asthma with acute exacerbation (HRC) [place] [address] [place] [address] Referral ID Status Reason Start Date Expiration Date Visits Requ ested Visits Authorized [id number] Closed 1 1 Reason for Visit Reason Comments ASTHMA Encounter Details Date Type Department Care Team Description 01/28/2021 Telemedicine [place] [address] Felipe Baum, Moderat e persistent Family Medicine MD asthma with acute [address] [facility] [address] [place] [place] [address] [phone] Social History Tobacco Use Types Packs/Day Years [...] - Inhaled Oxygen Concentration - - Weight 108.9 kg (240 lb) 01/28/2021 10:21 AM CDT pt rep orted Height - - Body Mass Index 32.55 09/13/2019 1:09 PM DIRECTOR OF REGULATORY AFFAIRS documented in this encounter Progress Notes Felipe Baum MD - 01/28/2021 10:20 AM CDT Subjective: Today's visit with Rajesh was conducted as a scheduled video visit. The patient states her asthma is flaring up on her. She was down in [place], [place] 2-3 days ago and while there began coughing and wheezing. She gets short of breath after coughing fits as well as when climbing the stairs, but not at rest. She denies any chest pain and has not had any fevers, chills, loss of taste or smell, nausea, vomiting, or diarrhea. Objective: General: Pleasant female in no acute distress Respiratory: Normal respiratory effort Psych: Normal mood and affect Assessment/Plan: Moderate persistent asthma with acute exacerbation (HRC) - predniSONE (DELTASONE) 20 MG tablet; Take 2 Tablets by mouth daily for 5 days. - ALBUterol sulfate HFA 108 (90 Base) MCG/ACT inhaler; Inhale 1-2 Puffs every 4 hours as needed for Wheezing. Pharmacy may substitute albuterol HFA inhalers based on insurance - ipratropium-albuterol (DUONEB) 0.5-2.5 (3) mg/3ml nebulizer solution; Inhale 3 mL every 6 hours asneeded for Wheezing. - budesonide-formoterol (SYMBICORT) 160-4.5 MCG/ACT inhaler; Inhale 2 Puffs two times a day. Rinse mouth/gargle after use. Asthma exacerbation - History is consistent with asthma exacerbations, which she has had previously. - Will prescribe prednisone 40 mg daily for 5 days - Refills of albuterol and Symbicort provided as she is due for the soon. - Will also give her some DuoNebs to be used every 6 hours as needed at home - We discussed return precautions including shortness of breath at rest, chest pain, or any other concerning symptoms and she verbalized understanding of these. Clinician located at home. Patient located at home Billing based on: Leanne Baum MD documented in this encounter Nursing Notes Luba Munguia - 01/28/2021 10:20 AM CDT A prior authorization is not needed for budesonide-formoterol (SYMBICORT) 160- 4.5 MCG/ACT inhaler. Medication is covered under patient's formulary. Please contact pharmacy and ask them to notify patient when prescription is ready for cotton picker. This brand name medication is on formulary. If there is a clinical reason the brand name cannot be tried, please resubmit stating generic is necessary. Please also indicate how the brand name product was failed. Document using ePA Assistance QuickAction PA Not Needed and click Sign and Complete. documented in this encounter Plan of Treatment Upcoming Encounters Date Type Specialty Care Team Description 09/01/2022 Telemedicine [place] [address] [place], [place] [address] (Wo rk) documented as of this encounter Visit Diagnoses Diagnosis Moderate persistent asthma with acute ex acerbation (HRC) documented in this encounter Care Teams Mat Machine Tender Relationship Specialty Start Date End Date Felipe Baum MD PCP - General Family Practice 07/16/19 [address] [place] [address] documented as of this encounter
--- OUTSIDE RECORDS SUMMARY | 2022-08-31 14:57 | XMS_ITS | Encounter Summary ---
:1970 Author Organization [facility] Address [address], [place] [address] Care Team Providers Name Role Phone Felipe Baum MD Primary Care Provider Encounter Details Date Type Department Care Team Description 07/03/2020 Lab Visit [facility] Encounter for long-term [address] (current) [place] [address] medications [phone] Social History Tobacco Use Types Packs/Day Years [...] documented as of this encounter Progress Notes Edie Arteaga, RN - 07/03/2020 3:20 PM CDT Layla pt. Provider returns to clinic on 07/07/20. Please review. documented in this encounter Plan of Treatment Upcoming Encounters Date Type Specialty Care Team Description 09/01/2022 Telemedicine [place] [address] [place], [place] [address] (Wo rk) documented as of this encounter Procedures Procedure Name Priority Date/Time Associated Diagnosis Comme nts HGB A1C Routine 07/03/2020 3:12 PM Encounter for Results for this CDT long-term (current) procedur e are in use of medications the resul ts section. documented in this encounter Results (ABNORMAL) Hemoglobin A1C Glycosylated (07/03/2020 3:12 PM CDT) [facility] Method Time Signature Hemoglobin A1C 6.5 (H) <=5.6 % 07/04/2020 [facility] 5:38 PM CDT CENTRAL LAB Specimen Anatomical Collection Method / Collection Time Recei janie Time (Source) Location / Volume Laterality Blood Venipuncture / 07/03/2020 3:12 07/03/2020 3:12 Unknown PM CDT PM CDT Narrative [facility] CENTRAL LAB - 07/04/2020 5:38 PM CDT For patients not previously diagnosed with diabetes: 5.7-6.4%: Increased risk for diabetes 6.5% and greater: Diagnostic for diabete s For patients diagnosed with diabetes: <8.0%: Goal of therapy for ages 18-75 Clinicians may recommend a higher or low er goal for specific individuals. Edie Rich MD LAB_1 Performing Organization Address City/State/ZIP Code Phon e Number [facility] [address] [address] documented in this encounter Visit Diagnoses Diagnosis Encounter for long-term (current) use of medications Encounter for long-term (current) use of other medications documented in this encounter Care Teams Jersey Knitter Relationship Specialty Start Date End Date Felipe Baum MD PCP - General Family Practice 07/16/19 [address] [place] [address] documented as of this encounter
--- OUTSIDE RECORDS SUMMARY | 2022-08-31 14:57 | XMS_ITS | Encounter Summary ---
:1970 Author Organization [facility] Address [address] [place] [address] Care Team Providers Name Role Phone Felipe Baum MD Primary Care Provider Encounter Details Date Type Department Care Team Description 04/07/2021 Notes/Orders [facility] [address] [facility], [address] [place], [place] [address] Social History Tobacco Use Types Packs/Day Years [...] 09/01/2022 Telemedicine [place] [address] [place], [place] [address] (Wo rk) documented as of this encounter Visit Diagnoses Not on filedocumented in this encounter Care Teams Tire Groover Relationship Specialty Start Date End Date Felipe Baum MD PCP - General Family Practice 07/16/19 [address] [place] [address] documented as of this encounter
--- OUTSIDE RECORDS SUMMARY | 2022-08-31 14:57 | XMS_ITS | Encounter Summary ---
:1970 Author Organization [facility] Address [address] [address] Care Team Providers Name Role Phone Felipe Baum MD Primary Care Provider Reason for Visit Reason Onset Date Comments HIP PAIN right hip pain x 5 d ays Video Visit 12/14/2020 Encounter Details Date Type Department Care Team Description 12/14/2020 Telemedicine [place] [address] Felipe Baum, Right h ip pain Family Medicine MD (Primary Dx) [address] [facility] [address] [place] [address] [phone] Social History Tobacco Use Types Packs/Day Years [...] encounter Progress Notes Felipe Baum MD - 12/14/2020 10:40 AM CDT HIP PAIN (right hip pain x 5 days ) and Video Visit Subjective: Today's visit with Rajesh was conducted as a scheduled video visit. The patient states about 5 daysago she began having pain in her right despite no injury or fall. She feels a pulling sensation in her back deep into her hip and radiate down into her knee and sometimes even down to her toes. The pain is constant and worsens with lifting or putting pressure on it. She is able to ambulate although favors it a bit. It wakes her up in the middle of the night when she changes positions. She denies any fevers, chills, or redness overlying the joint. She has been using ibuprofen and Tylenol routinely along with ice, heat, and rest, none of which have been overly helpful. She has never had issues with the hip before. Objective: General: Pleasant female in no acute distress Respiratory: Normal respiratory effort Psych: Normal mood and affect Assessment/Plan: Right hip pain Right hip pain - Will see in clinic later today. If consistent with trochanteric bursitis, will offer injection. Ifnot, would consider x-ray of the hip. Clinician located at clinic. Patient located at home Billing based on: No charge as I will see her in office later today. Felipe Baum MD documented in this encounter Plan of Treatment Upcoming Encounters Date Type Specialty Care Team Description 09/01/2022 [facility] [place] [address] [place], [place] [address] (Wo rk) documented as of this encounter Visit Diagnoses Diagnosis Right hip pain - Primary Pain in joint, pelvic region and thigh documented in this encounter Care Teams Vp Organizational Development Relationship Specialty Start Date End Date Felipe Baum MD PCP - General Family Practice 07/16/19 [address] [place] [address] documented as of this encounter
--- OUTSIDE RECORDS SUMMARY | 2022-08-31 14:57 | XMS_ITS | Encounter Summary ---
:1970 Author Organization [facility] Address [address], [place] [address] Care Team Providers Name Role Phone Felipe Baum MD Primary Care Provider Reason for Visit Reason Comments BREATHING PROBLEM Encounter Details Date Type Department Care Team Description 02/17/2020 Nurse Triage [place] [address] Family Deysi Baum MD BREATHING PROBLEM Medicine [address] [facility] [address] [place] [id number] [place], [place] [phone] (Wo rk) [address] [phone] Social History Tobacco Use Types Packs/Day Years [...] documented as of this encounter Nursing Notes Janki Matamoros RN - 02/17/2020 12:20 PM CDT Reason for Disposition ??? Patient wants to be seen Protocols used: BREATHING [id number] Pt calling. States she woke up at 3 am with pain only when taking a deep breath. Has had a spontaneous pneumothorax in the past and is concerned about symptoms. Feels fine with shallow breathing. Denies wheezing, cough, chest pain, or fever. Pt requests to discuss with PCP but will come into UC at respiratory clinic if necessary. Problem list reviewed as related to this call. Future Appointments Date Time Provider Department Center 02/17/2020 2:30 PM Felipe Baum MD [facility] 03/11/2020 10:40 AM Edie Rich MD P3800 [facility] PN P3800 Terrie Pedersen - 02/17/2020 12:09 PM CDT Initial Screening: Patient information Best number to contact patient: [phone] Reason for Call: COVID Screening/Testing Request In the last 14 days have you had close contact with a person known to have COVID-19 or been instructed to self-isolate? No Are symptoms urgent/emergent? Yes - follow urgent / emergent process and warm transfer call to an RN documented in this encounter Plan of Treatment Upcoming Encounters Date Type Specialty Care Team Description 09/01/2022 Telemedicine [place] [address] [place], [place] [address] (Wo rk) documented as of this encounter Visit Diagnoses Not on filedocumented in this encounter Care Teams Heel Dipper Relationship Specialty Start Date End Date Felipe Baum MD PCP - General Family Practice 07/16/19 [address] [place] [address] documented as of this encounter
--- OUTSIDE RECORDS SUMMARY | 2022-08-31 14:57 | XMS_ITS | Encounter Summary ---
:1970 Author Organization [email or web address] Address [address] [address] Care Team Providers Name Role Phone Felipe Baum MD Primary Care Provider Reason for Visit Reason Onset Date Comments Difficulty Breathing pt thinks she has a nother pneumothorax: feels the same way again: taki ng deep breath has severe pain: Video Visit 02/17/2020 Encounter Details Date Type Department Care Team Description 02/17/2020 Telemedicine [place] [address] Felipe Baum, Chest p ain on Family Medicine MD breathing (Primary Dx) [address] [facility] [address] [place] [address] [phone] Social History Tobacco Use Types Packs/Day Years [...] Sign Reading Time Taken Comments Blood Pressure 114/62 02/17/2020 1:54 PM CDT Pulse 80 02/17/2020 1:54 PM CDT Temperature - - Respiratory Rate - - Oxygen Saturation - - Inhaled Oxygen Concentration - - Weight 112.5 kg (248 lb) 02/17/2020 1:54 PM CDT Height - - Body Mass Index 33.63 09/13/2019 1:09 PM COMPETITIVE ATHLETE documented in this encounter Progress Notes Felipe Baum MD - 02/17/2020 2:30 PM CDT Subjective: Today's visit with Rajesh was conducted as a scheduled video visit. The patient states she was awoken from sleep last night due to sharp pain in her right upper chest and the middle of her back consistent with her previous episodes of pneumothorax. She describes having ???excruciating pain?? with deep breathing, but says she is able to take shallow breaths. She has required 2 chest tubes in the past as well as surgical intervention and is wondering what her next steps should be. She denies any other symptoms including any fevers, chills, cough, or congestion and voices no other complaints or concerns at this time. Objective: BP 114/62 (BP Location: Right Arm, BP Cuff Size: Large) Pulse 80 Wt 248 lb (112.5 kg) BMI 33.63 kg/m?? General: Pleasant female in no acute distress Respiratory: Normal respiratory effort Psych: Normal mood and affect Assessment/Plan: Chest pain on breathing Other orders - PREVIDENT 5000 SENSITIVE 1.1-5 % paste Chest pain - History is concerning for pneumothorax. She does not appear dyspneic on exam and is able to speak in complete sentences. - I recommended that she be evaluated in the ED immediately and she verbalized understanding of and agreement with this plan. Clinician located at home. Patient located at home Billing based on: Complexity Felipe Baum MD documented in this encounter Plan of Treatment Upcoming Encounters Date Type Specialty Care Team Description 09/01/2022 Telemedicine [place] [address] [place], [place] [address] (Wo rk) documented as of this encounter Visit Diagnoses Diagnosis Chest pain on breathing - Primary Painful respiration documented in this encounter Care Teams Systems Trainer Relationship Specialty Start Date End Date Felipe Baum MD PCP - General Family Practice 07/16/19 [address] [place] [address] documented as of this encounter
--- OUTSIDE RECORDS SUMMARY | 2022-08-31 14:57 | XMS_ITS | Encounter Summary ---
:1970 Author Organization [facility] Address [address] [address] Care Team Providers Name Role Phone Felipe Baum MD Primary Care Provider Reason for Visit Procedure/Equipment (Routine) - Incomplete Specialty Diagnoses / Procedures Referred By Contact Refer red To Contact Diagnoses Right-sided chest pain Josue Salazar MBBS Procedures XR Chest 2 Views [address] [place], [place] [address] Referral ID Status Reason Start Date Expiration Date Visits V isits Requested Authorized [id number] Incomplete 02/29/2020 05/30/2021 1 1 Encounter Details Date Type Department Care Team Description 02/29/2020 Ancillary Procedure [facility] [address] [place] [address] Social History Tobacco Use [...] to sleep or slept in a senior living (including now)? Sex Assigned at Date Recorded Female 04/30/2021 11:10 AM CDT documented as of this encounter Plan of Treatment Upcoming Encounters Date Type Specialty Care Team Description 09/01/2022 Telemedicine [place] [address] [place], [place] [address] (Wo rk) documented as of this encounter Procedures Procedure Name Priority Date/Time Associated Diagnosis Comme nts XR CHEST 2 VIEWS Routine 02/29/2020 9:11 AM Right-sided chest Results for this CDT pain procedure are i n the results section. documented in this encounter Results XR Chest 2 Views (02/29/2020 9:11 AM CDT) Anatomical Region Laterality Modality Chest, Lung Digital Radiography Specimen (Source) Anatomical Collection Method Collection Time Re ceived Time Location / / Volume Laterality 02/29/2020 9:00 AM CDT Impressions 02/29/2020 9:14 AM CDT COMPARISON: ??None. FINDINGS: ??Two views were obtained. Rig ht basilar infiltrate or atelectasis. Heart size and pulmonary vascularity are within normal limits. Small right pleural effusion. Bony thorax is unremarkable. Procedure Note Zoë Roblero MD - 02/29/2020Fo rmatting of this note might be different from the original. IMPRESSION COMPARISON: None. FINDINGS: Two views were obtained. Right basilar infiltrate or atelectasis. Heart size and pulmonary vascularity are within normal limits. Small right pleural effusion. Bony thorax is unremarkable. Josue CORDOVABS RAD GD documented in this encounter Visit Diagnoses Not on filedocumented in this encounter Care Teams Chlorination Operator Relationship Specialty Start Date End Date Felipe Baum MD PCP - General Family Practice 07/16/19 [address] [place] [address] documented as of this encounter
--- OUTSIDE RECORDS SUMMARY | 2022-08-31 14:57 | XMS_ITS | Encounter Summary ---
:1970 Author Organization [facility] Address [address] [place] [address] Care Team Providers Name Role Phone Felipe Baum MD Primary Care Provider Encounter Details Date Type Department Care Team Description 04/07/2021 Notes/Orders [facility] [address] [facility], [address] [place], [place] [address] Social History Tobacco Use Types Packs/Day Years [...] 09/01/2022 Telemedicine [place] [address] [place], [place] [address] (Wo rk) documented as of this encounter Visit Diagnoses Not on filedocumented in this encounter Care Teams Overhauler Bus Truck Relationship Specialty Start Date End Date Felipe Baum MD PCP - General Family Practice 07/16/19 [address] [place] [address] documented as of this encounter
--- OUTSIDE RECORDS SUMMARY | 2022-08-31 14:57 | XMS_ITS | Encounter Summary ---
:1970 Author Organization [facility] Address [address], [place] [address] Care Team Providers Name Role Phone Felipe Baum MD Primary Care Provider Reason for Visit Reason Comments Appt. Needed Encounter Details Date Type Department Care Team Description 05/19/2021 Telephone [place] [address] Family Deysi Baum MD Appt. Needed Medicine [address] [facility] [address] [place] [address] [place] [address] [phone] Social History Tobacco Use Types Packs/Day Years [...] documented as of this encounter Nursing Notes Fatimah Bernard LPN - 05/20/2021 10:01 AM CDT Video visit scheduled for 05-27Rajesh agrees with appt date and time. Felipe Baum MD - 05/19/2021 9:05 PM CDT Please call and help patient schedule an appt with me to discuss uncontrolled diabetes. This can be a phone or video visit. Please schedule for 40 mins. Thanks, Felipe Baum MD documented in this encounter Plan of Treatment Upcoming Encounters Date Type Specialty Care Team Description 09/01/2022 Telemedicine [place] [address] [place], [place] [address] (Wo rk) documented as of this encounter Visit Diagnoses Not on filedocumented in this encounter Care Teams Ladle Mechanic Relationship Specialty Start Date End Date Felipe Baum MD PCP - General Family Practice 07/16/19 [address] [place] [address] documented as of this encounter
--- OUTSIDE RECORDS SUMMARY | 2022-08-31 14:57 | XMS_ITS | Encounter Summary ---
:1970 Author [facility] Address [address] [place] [address] Care Team Providers Name Role Phone Felipe Baum MD Primary Care Provider Reason for Referral Consult/Transfer Care (Routine) - Closed Specialty Diagnoses / Procedures Referred By Contact Refer red To Contact Diagnoses Type 2 diabetes mellitus without complication, without long-term current use of insulin (HRC) [place] [address] [place] [address] Referral ID Status Reason Start Date Expiration Date Visits Requ ested Visits Authorized [id number] Closed 05/27/2021 08/26/2022 1 1 Scheduling Instructions Your provider has recommended an appoint ment with Negin Hough Diabetes Education. You may call [phone] to schedule yo ur appointment. We suggest you call your health insurance company about your cove rage and benefits for this appointment. Reason for Visit Reason Onset Date Comments Video Visit 05/27/2021 Encounter Details Date Type Department Care Team Description 05/27/2021 Telemedicine [place] [address] Felipe Baum, Type 2 diabetes mellitus without complication, without long-term current use of insulin (HRC) (Primary Dx); Family Medicine Dyslipidemia [address] [facility] [address] [place] [address] [phone] Social History Tobacco Use Types Packs/Day Years [...] encounter Progress Notes Felipe Baum MD - 05/27/2021 11:20 AM CDT Subjective: Today's visit with Rajesh was conducted as a scheduled video visit. Rajesh recently had labs done through her weight management provider that showed a hemoglobin A1c of 9.1%, up from 6.5% in June 2020. As a result, she was recommended to schedule appointment with me to discuss treatment options for this. She has a family history of diabetes in her father so she has a pretty good understanding ofwhat diabetes is and the long-term effects it can cause. She usually tries to get to the gym 4 times a week and does some intense walking on the treadmill for about 30 minutes. She is working with a dietitian on adjusting her diet and says this improving. Objective: General: Pleasant female in no acute distress Respiratory: Normal respiratory effort Psych: Normal mood and affect Assessment/Plan: Type 2 diabetes mellitus without complication, without long-term current use of insulin (HRC) - Diabetes Education Visit - metFORMIN XR (GLUCOPHAGE XR) 500 MG 24 hour release tablet; Take 1 Tablet by mouth every evening with a meal for 7 days, THEN 2 Tablets every evening with a meal for 7 days, THEN 3 Tablets every evening with a meal for 7 days, THEN 4 Tablets every evening with a meal for 7 days. - Albumin/Creatinine Ratio,Random Urine; Future - Hemoglobin A1C Glycosylated; Future - Basic Metabolic Panel; Future Dyslipidemia (HRC) - rosuvastatin (CRESTOR) 10 MG tablet; Take 1 Tablet by mouth daily. Type 2 diabetes mellitus - Will start on metformin XR as above with the goal to titrate to 2000 mg daily - Referral to life skills educator placed for further education and medication recommendations - Continue to work on lifestyle changes - Begin statin - Check UMAR at next labs and if elevated, will need ACEI - Encouraged annual eye exam - Repeat HbA1c in 3 months Dyslipidemia - Will begin low dose statin. Follow up in 3 months or sooner with any concerns. Clinician located at home. Patient located at home Billing based on: Leanne Baum MD documented in this encounter Nursing Notes Mainor Baum LPN - 05/27/2021 11:20 AM CDT The prior authorization for Ambien CR 12.5 mg has been denied for coverage. Would you like to appealor change RX? Per Insurance: Denied. We are not approving your request because: - You have previously taken only one preferred product, zolpidem IR tablet. Documentation (in the form of pharmacy claims or medical chart documentation) has not shown that at least one additional preferred product has been tried and failed for a sufficient period of time to allow for a positive treatment outcome, or that there are medical reasons toavoid use of the listed preferred products. Preferred products include: eszopiclone, zaleplon, and zolpidem IR tablet, are on our [facility] formulary. The preferred products may besubject to quantity limitation. We realize this may not be the answer you expected. We made this decision based on: - Information from your provider - The [place] Department of Human Services Non-Preferred Drug Prior Authorization Criteria - Your [facility] Drug List coverage criteria for zolpidem ER tablet Mainor Baum LPN documented in this encounter Plan of Treatment Upcoming Encounters Date Type Specialty Care Team Description 09/01/2022 Telemedicine [place] [address] [place], [place] [address] (Wo rk) Scheduled Referrals Name Type Priority Associated Diagnoses Order S [facility] Diabetes Education Referral Routine Type [address] [facility] Ordered: 05/27/2021 Visit without complication, without long-term current use of insulin (HRC) documented as of this encounter Visit Diagnoses Diagnosis Type 2 diabetes mellitus without complic ation, without long-term current use of insulin (HRC) - Primary Dyslipidemia (HRC) Other and unspecified hyperlipidemia documented in this encounter Care Teams Asphalt Still Operator Relationship Specialty Start Date End Date Felipe Baum MD PCP - General Family Practice 07/16/19 [address] [place] [address] documented as of this encounter
--- OUTSIDE RECORDS SUMMARY | 2022-08-31 14:57 | XMS_ITS | Encounter Summary ---
:1970 Author [facility] Address [address] [place] [address] Care Team Providers Name Role Phone Felipe Baum MD Primary Care Provider Reason for Visit Reason Comments Refill SYMBICORT 160-4.5 MCG/ACT in haler [Pharmacy Med Name: Symbicort Inhalation Aerosol 160-4.5 MCG/ACT] Encounter Details Date Type Department Care Team Description 06/29/2020 Refill [facility] Felipe Baum MD Refill (SYMBICORT Medicine [address] 160-4.5 MCG/ACT inhaler [address] [place] [address] [Pharmacy Med Name: [place], [place] [phone] (Wo rk) Symbicort Inhalation [address] Aerosol 160-4.5 MCG/ACT]) Social History Tobacco Use Types Packs/Day Years [...] place to sleep or slept in a [place] health care facility (including now)? Sex Assigned at Date Recorded Female 04/30/2021 11:10 AM CDT documented as of this encounter Nursing Notes Valentine Gomez, RN - 06/29/2020 3:13 PM CDT Renewed medication per medication refill protocol. Requested Prescriptions Pending Prescriptions Disp Refills ??? SYMBICORT 160-4.5 MCG/ACT inhaler [Pharmacy Med Name: Symbicort Inhalation Aerosol 160-4.5 MCG/ACT] 3 Each 2 Sig: Inhale 2 Puffs BY MOUTH 2 times a day Interface, Out Surescripts Prov Query - 06/29/2020 2:02 AM CDT SYMBICORT 160-4.5 MCG/ACT inhaler [Pharmacy Med Name: Symbicort Inhalation Aerosol 160-4.5 MCG/ACT] Medication started: 07/16/2019 Last ordered by FELIPE BAUM: 07/16/2019 (349 days ago) QTY: 1, Refills: 11, Sig: inhale 2 puffstwo times a day. (changed but equivalent) -> Refill x 9 months, qty: 1, refills: 11 (until due for an office visit) Last qualifying visit: 03/02/2020 (with FELIPE BAUM) Next scheduled visit: None Powered by [employer], Reference: [id number], 06/29/2020 2:02:16 AM CDT, Pool: DELMIREINA REFILL ([id number]) documented in this encounter Plan of Treatment Upcoming Encounters Date Type Specialty Care Team Description 09/01/2022 Telemedicine [place] [address] [place], [place] [address] (Wo rk) documented as of this encounter Visit Diagnoses Diagnosis Moderate persistent asthma without compl ication (HRC) Unspecified asthma documented in this encounter Care Teams Decorating Inspector Relationship Specialty Start Date End Date Felipe Baum MD PCP - General Family Practice 07/16/19 [address] [place] [address] documented as of this encounter
--- OUTSIDE RECORDS SUMMARY | 2022-08-31 14:57 | XMS_ITS | Encounter Summary ---
:1970 Author Organization [facility] Address [address], [place] [address] Care Team Providers Name Role Phone Felipe Baum MD Primary Care Provider Reason for Visit Reason Onset Date Comments Hospital Discharge Follow-up [facility] 02/28-chest pain, pneumnia & asthma: got put on m ore medication and is feeling better Video Visit 03/02/2020 Encounter Details Date Type Department Care Team Description 03/02/2020 Telemedicine [place] [address] Felipe Baum, Pleural pain (Primary Family Medicine MD Dx) [address] [facility] [address] [place] [address] [phone] Social History Tobacco Use Types Packs/Day Years [...] Sign Reading Time Taken Comments Blood Pressure 120/70 03/02/2020 8:10 AM CDT pt report ed. Pulse - - Temperature - - Respiratory Rate - - Oxygen Saturation - - Inhaled Oxygen Concentration - - Weight 113.4 kg (250 lb) 03/02/2020 8:10 AM CDT pt repo rted. 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 The patient was recently hospitalized at [facility] from February 16 through the with acute hypoxic respiratory failure and right lower lobe pneumonia. She was placed on IV antibiotics and prednisone and discharged home on levofloxacin, which she has since completed. She was seen again in urgent care on February 28 for right-sided chest pain that had been worsening since she completed her course of prednisone. A chest x-ray done at that time showed a consolidation in the right lower lobe with pleural effusion, but she also hadan elevated D-dimer and was recommended to be seen in the emergency department. She went again to [facility], where it was thought that she had pleural irritation and effusion causing her pain. She was started on doxycycline and a short course of oxycodone and and discharged home with instructions to follow-up this week. Today, Rajesh states she is doing better. She has needed to use her oxycodone a few times, but otherwise is taking ibuprofen pretty regularly for her right- sided chest pain. She has not had any difficulty breathing and denies any shortness of breath, cough, or wheezing. She is leaving for [place] tomorrow for 10 days and is requesting a short prescription of oxycodone in case she should need it. Otherwise, she has not had any fevers or chills and she voices no other complaints or concerns at this time. Objective: BP 120/70 Comment: pt reported. Wt 250 lb (113.4 kg) Comment: pt reported. BMI 33.91 kg/m?? General: Pleasant female in no acute distress Respiratory: Normal respiratory effort Psych: Normal mood and affect Assessment/Plan: Pleural pain - oxyCODONE (ROXICODONE) 5 MG immediate release tablet; Take 1 Tablet by mouth every 6 hours as needed for Pain. Other orders - doxycycline (VIBRAMYCIN) 100 MG capsule; Take 100 mg by mouth. - ibuprofen (MOTRIN) 600 MG tablet; Take 600 mg by mouth. Pleural pain - Short refill of oxycodone given since she will be going out of state tomorrow. I recommended seeing Pulmonology if she is still having a lot of pain by the time she returns as she may need repeat imaging and possible thoracentesis if the pleural effusion persists or increases in size. - Complete current course of doxycycline - Discussed that if she were to develop any fevers, chills, shortness of breath, or any other concerning symptoms in the meantime she should be seen again. Clinician located at home. Patient located at home Billing based on: Complexity Felipe Baum MD documented in this encounter Plan of Treatment Upcoming Encounters Date Type Specialty Care Team Description 09/01/2022 Telemedicine [place] [address] [place], [place] [address] (Wo rk) documented as of this encounter Visit Diagnoses Diagnosis Pleural pain - Primary Painful respiration documented in this encounter Care Teams Electric System Operator Relationship Specialty Start Date End Date Felipe Baum MD PCP - General Family Practice 07/16/19 [address] [place] [address] documented as of this encounter
--- OUTSIDE RECORDS SUMMARY | 2022-08-31 14:57 | XMS_ITS | Encounter Summary ---
:1970 Author Organization [employer] [facility] Address [address], [place] [address] Care Team Providers Name Role Phone Felipe Baum MD Primary Care Provider Reason for Visit Reason Onset Date Comments LAB RESULTS A1C and very fatigue Video Visit 07/09/2020 Encounter Details Date Type Department Care Team Description 07/09/2020 Telemedicine [place] [address] Felipe Baum, Fatigue , unspecified type (Primary Dx); Family Medicine MD Type 2 diabetes mellitus without complic ation, without long-term current use of insulin ([facility]) [address] [facility] [address] [place] [address] [phone] Social History Tobacco Use Types Packs/Day Years [...] - Inhaled Oxygen Concentration - - Weight 106.6 kg (235 lb) 07/09/2020 1:48 PM CDT pt repo rted Height - - Body Mass Index 31.87 09/13/2019 1:09 PM SIGN CARPENTER documented in this encounter Progress Notes Felipe Baum MD - 07/09/2020 2:00 PM CDT Subjective: Today's visit with Rajesh was conducted as a scheduled video visit. Rajesh has a couple of concerns today. First, she just had a recent hemoglobin A1c of 6.5%. She has been working on losing weight through [employer] and has lost 20-25 lb in the past couple of months, but wants to make sure there is nothing else she should be doing. In addition, she complains of a lot of fatigue over the past 2 weeks. She says it is hard to do anything because of how tired she feels. She endorse some nausea and loose stools, but has not had any fevers or chills. She denies any family history of thyroid disease. She does not get her menstrual periods as she gets Depo injections. When asked about sleep, she says that some nights are better than others. She is a loud snorer, but has never been told she stops sleeping at night. She does not fall asleep during the day and has not had any close calls while driving. Objective: Wt 235 lb (106.6 kg) Comment: pt reported BMI 31.87 kg/m?? General: Pleasant female in no acute distress Respiratory: Normal respiratory effort Psych: Normal mood and affect Assessment/Plan: Fatigue, unspecified type - Complete Blood Count W/Diff; Future - TSH with Free T4 (if TSH Abnormal); Future - Basic Metabolic Panel; Future Type 2 diabetes mellitus without complication, without long-term current use of insulin (HRC) Fatigue - Will check CBC, TSH and BMP to rule out organic causes - If normal, will consider sleep study to rule out obstructive sleep apnea as a cause as she does have risk factors with obesity and snoring. Type 2 diabetes mellitus - HbA1c of 6.5% - Do not recommend medication at this time as she is working on weight loss through diet and exercise already - Will need follow up labs in 3 months to include A1c, UMAR, and lipid panel Clinician located at home. Patient located at work. Billing based on: Complexity Felipe Baum MD documented in this encounter Plan of Treatment Upcoming Encounters Date Type Specialty Care Team Description 09/01/2022 Telemedicine [place] [address] [place], [place] [address] (Wo rk) documented as of this encounter Results (ABNORMAL) Basic Metabolic Panel (07/10/2020 3:15 PM CDT) Analysis Performed At Patho logist Time Signature Sodium 146 (H) 136 - 145 07/10/2020 [facility] mmol/L 8:40 PM CDT LABORATORY Potassium 4.0 3.5 - 5.1 07/10/2020 [facility] mmol/L 8:40 PM CDT LABORATORY Chloride 113 (H) 98 - 109 07/10/2020 [facility] mmol/L 8:40 PM CDT LABORATORY CO2 25 20 - 29 07/10/2020 [facility] mmol/L 8:40 PM CDT LABORATORY Anion Gap 8 7 - 16 07/10/2020 [facility] mmol/L 8:40 PM CDT LABORATORY Calcium 9.2 8.4 - 10.4 07/10/2020 [facility] mg/dL 8:40 PM CDT LABORATORY BUN 13 7 - 26 07/10/2020 [facility] mg/dL 8:40 PM CDT LABORATORY Creatinine 0.80 0.55 - 07/10/2020 [facility] 1.02 mg/dL 8:40 PM CDT LABORATORY GFR, Estimated >60 >60 07/10/2020 [facility] mL/min/1.7 8:40 PM CDT LABORATORY 3m2 Glucose 104 (H) 70 - 100 07/10/2020 [facility] mg/dL 8:40 PM CDT LABORATORY Comment: The given reference range is fo r the fasting state. Non-fasting reference range for glucose is 70 - 180 mg/dL. Hours Fasting 4 07/10/2020 8:40 PM CDT [facility] Specimen Anatomical Collection Method / Collection Time Recei janie Time (Source) Location / Volume Laterality Blood Venipuncture / 07/10/2020 3:15 07/10/2020 3:15 Unknown PM CDT PM CDT Felipe Baum MD LAB_1 Performing Organization Address City/State/ZIP Code Phon e Number [facility] [address] [place] [address] [facility] [address] [place] [address], [facility] TSH with Free T4 (if TSH Abnormal) (07/10/2020 3:15 PM CDT) athologist Signature TSH, Reflex 1.01 0.30 - 4.50 07/10/2020 [facility] uIU/mL 9:33 PM CDT LABORATORY Specimen Anatomical Collection Method / Collection Time Recei janie Time (Source) Location / Volume Laterality Blood Venipuncture / 07/10/2020 3:15 07/10/2020 3:15 Unknown PM CDT PM CDT Narrative [facility] - 07/10/2020 9:33 P M CDT Lab will automatically reflex to Free T4 when TSH results are <0.30 uIU/mL or >4.50 mIU/mL. Felipe Baum MD LAB_1 Performing Organization Address City/State/ZIP Code Phon e Number [facility] [address] [place] [address] documented in this encounter Visit Diagnoses Diagnosis Fatigue, unspecified type - Primary Type 2 diabetes mellitus without complic ation, without long-term current use of insulin (HRC) documented in this encounter Care Teams Hop Sorter Relationship Specialty Start Date End Date Felipe Baum MD PCP - General Family Practice 07/16/19 [address] [place] [address] documented as of this encounter
--- OUTSIDE RECORDS SUMMARY | 2022-08-31 14:57 | XMS_ITS | Encounter Summary ---
:1970 Author Organization [facility] Address [address], [place] [address] Care Team Providers Name Role Phone Felipe Baum MD Primary Care Provider Encounter Details Date Type Department Care Team Description 02/24/2020 [facility] Initial Department Provider, [facility] [address]os MD 02/17/[address] [place], [place] provider [address] [address] [phone] [place] [address] Social History Tobacco Use Types Packs/Day Years [...] 09/01/2022 Telemedicine [place] [address] [place], [place] [address] (Wo rk) documented as of this encounter Visit Diagnoses Not on filedocumented in this encounter Care Teams Gerontology Aide Relationship Specialty Start Date End Date Felipe Baum MD PCP - General Family Practice 07/16/19 [address] [place] [address] documented as of this encounter
--- OUTSIDE RECORDS SUMMARY | 2022-08-31 14:57 | XMS_ITS | Encounter Summary ---
:1970 Author Organization [facility] [facility] Address [address] [place] [address] Care Team Providers Name Role Phone Felipe Baum MD Primary Care Provider Reason for Visit Reason Comments LAB RESULTS Encounter Details Date Type Department Care Team Description 05/18/2021 Telephone [facility] & Stanislaw Sultana MD LAB RESULTS [facility] [address] [facility] [address] [place] [address] [place] [address] [phone] Social History Tobacco Use Types Packs/Day Years [...] documented as of this encounter Nursing Notes Niki Paul RN - 05/19/2021 9:[address] Sultana's message to pt as follows: Lab results released to [facility], but I want to be sure that patient sees my note about her very elevated hemoglobin A1c. She needs to schedule a follow-up with her PCP regarding this. We can also review it further at her follow-up and discuss additional medication options. Thanks!! Pt verbalized understanding of information. No further questions asked. Stanislaw Sultana MD - 05/18/2021 3:34 PM CDT Lab results released to [facility], but I want to be sure that patient sees my note about her very elevated hemoglobin A1c. She needs to schedule a follow-up with her PCP regarding this. We can also review it further at her follow-up and discuss additional medication options. Thanks!! documented in this encounter Plan of Treatment Upcoming Encounters Date Type Specialty Care Team Description 09/01/2022 Telemedicine [place] [address] [place], [place] [address] (Wo rk) documented as of this encounter Visit Diagnoses Not on filedocumented in this encounter Care Teams Bond Writer Relationship Specialty Start Date End Date Felipe Baum MD PCP - General Family Practice 07/16/19 [address] [place] [address] documented as of this encounter
--- OUTSIDE RECORDS SUMMARY | 2022-08-31 14:57 | XMS_ITS | Encounter Summary ---
:1970 Author Organization [facility] [employer] Address [address], [place] [address] Care Team Providers Name Role Phone Felipe Baum MD Primary Care Provider Encounter Details Date Type Department Care Team Description 02/21/2020 [facility] Initial Department ProviderTOMMY 02/17/2020 [address] Lagos MD [place], [place] [address] Interface provider [phone] [place] [address] Social History Tobacco Use Types Packs/Day Years [...] 09/01/2022 Telemedicine [place] [address] [place], [place] [address] (Wo rk) documented as of this encounter Visit Diagnoses Not on filedocumented in this encounter Care Teams Education Paraprofessional Relationship Specialty Start Date End Date Felipe Baum MD PCP - General Family Practice 07/16/19 [address] [place] [address] documented as of this encounter
--- OUTSIDE RECORDS SUMMARY | 2022-08-31 14:57 | XMS_ITS | Encounter Summary ---
:1970 Author Organization [facility] Address [address], [place] [address] Care Team Providers Name Role Phone Felipe Baum MD Primary Care Provider Reason for Referral Consult/Transfer Care (Routine) - Closed Specialty Diagnoses / Procedures Referred By Contact Refer red To Contact [facility] Diagnoses Fatigue, unspecified type Snoring Felipe Baum MD [id number] [facility] [address] [facility] [address] [place] [address] [place] [address] Phone: Fax: Referral ID Status Reason Start Date Expiration Date Visits Requ ested Visits Authorized [id number] Closed 07/13/2020 10/12/2021 1 1 Scheduling Instructions Your provider has recommended an appoint ment with [facility]. This is not a sleep study order and must first be re viewed by a sleep specialist to determine the next steps. The review process looks at multiple factors including your insurance requirements, personal health history, a nd [place] [employer] guidelines. This order will be reviewed within 1 and sent to scheduling for one of the following appointments: - Consultation/Office Visit with a Slee p Medicine Specialist - Consultation/Office Visit with an Ins omnia Specialist - Portable/Home Sleep Test If you do not hear from our scheduling s taff within the next 7 days, please contact us at [phone] and select option 1. Encounter Details Date Type Department Care Team Description 07/13/2020 Notes/Orders [place] [address] Felipe Baum, Type 2 diabetes mellitus without complication, without long-term current use of insulin (HRC) (Primary Dx); Family Medicine Fatigue, unspecified type; [address] [place] [address] [phone] Social History Tobacco Use Types Packs/Day Years [...] place to sleep or slept in a chcf (including now)? Sex Assigned at Date Recorded Female 04/30/2021 11:10 AM CDT documented as of this encounter Plan of Treatment Upcoming Encounters Date Type Specialty Care Team Description 09/01/2022 Telemedicine [place] [address] [place], [place] [address] (Wo rk) Scheduled Referrals Name Type Priority Associated Diagnoses Order S [facility] Referral Routine Fatigue, unspeci fied type Ordered: 07/13/2020 Snoring documented as of this encounter Visit Diagnoses Diagnosis Type 2 diabetes mellitus without complic ation, without long-term current use of insulin (HRC) - Primary Fatigue, unspecified type Snoring Other dyspnea and respiratory abnormalit y documented in this encounter Care Teams Auto Research Engineer Relationship Specialty Start Date End Date Felipe Baum MD PCP - General Family Practice 07/16/19 [address] [place] [address] documented as of this encounter
--- OUTSIDE RECORDS SUMMARY | 2022-08-31 14:57 | XMS_ITS | Encounter Summary ---
:1970 Author Organization [facility] Address [address], [place] [address] Care Team Providers Name Role Phone Felipe Baum MD Primary Care Provider Encounter Details Date Type Department Care Team Description 05/05/2021 Telemedicine [facility] Stephanie Motley, Obesity, u nspecified classification, unspecified obesity type, unspecified whether serious comorbidity present; Surgery & Weight RDN, LD [facility] [address] [place] [id number] [phone] Social History Tobacco Use Types Packs/Day Years [...] place to sleep or slept in a residential (including now)? Sex Assigned at Date Recorded Female 04/30/2021 11:10 AM CDT documented as of this encounter Progress Notes Stephanie Motley, RD - 05/05/2021 2:00 PM CDT Nutrition visit completed today via video Location of Clinician: Clinic Location of Patient: home. [facility] Medical Nutrition Therapy Consult ASSESSMENT Referring Provider: Dr. Stanislaw Sultana BMI: Estimated body mass index is 35.26 kg/m?? as calculated from the following: Height as of 05/04/21: 6' (182.9 cm). Weight as of 05/04/21: 260 lb (941318 g). 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 Was athletic as a young adult. When did [employer]- learned to eat more regularly and lost >40#- but has drifted from this pattern and stays up late/snacks now. Feels tired during the day- stays up late Diet History: Breakfast: no- but awake, sips on water or sweet tea or shot of OJ Lunch: 2pm- 1- turkey and cheese w/mustard and miracle whip or skips Dinner: not over eating Sometimes crackers, sweet tea Snack:no Dinner: meat, grain, veg Snack: apples/PB, Kraft mac & cheese, cereal- cinn. Life Cereal or toast crunch cereal Beverages: water. tea. Meal habits: at home, with screen and sometimes wakes and eats at night Exercise: Patient is engaging in physical activity: walking, 30 min 3 x week DIAGNOSIS: Nutrition Diagnosis: Overweight/Obesity (NC 3.3). related to excess energy intake as evidenced by BMI INTERVENTION Medical Nutrition Therapy provided, including education and counseling on the following topics: Calorie free beverage choices. Healthy Diet and Meal planning. MONITORING AND EVALUATION Patient Goals for Behavior Change: 1. Eat 3 meals/day and one planned snack in evening 2. Keep trigger foods out of house for now; mac and cheese, specific cereal. 3. Cut sweet tea in half- presently drinking 500 calories/day in tea. 4. Move snack to kitchen vs living room Follow up Plan: Future areas of discussion: Triggers, sleep. Follow up with RD: in one month. Time: 30 minutes Thank you for this referral documented in this encounter Plan of Treatment Upcoming Encounters Date Type Specialty Care Team Description 09/01/2022 Telemedicine [place] [address] [place], [place] [address] (Wo rk) documented as of this encounter Visit Diagnoses Diagnosis Obesity, unspecified classification, uns pecified obesity type, unspecified whether serious comorbidity present (HRC) Prediabetes Other abnormal glucose documented in this encounter Care Teams Bonbon Cream Warmer Relationship Specialty Start Date End Date Felipe Baum MD PCP - General Family Practice 07/16/19 [address] [place] [address] documented as of this encounter
--- OUTSIDE RECORDS SUMMARY | 2022-08-31 14:57 | XMS_ITS | Encounter Summary ---
:1970 Author Organization [facility] Address [address] [address] Care Team Providers Name Role Phone Felipe Baum MD Primary Care Provider Reason for Referral Procedure/Equipment (Routine) - Incomplete Specialty Diagnoses / Procedures Referred By Contact Refer red To Contact Diagnoses Right-sided chest pain Josue Salazar MBBS Procedures XR Chest 2 Views [address] [place], [place] [address] Referral ID Status Reason Start Date Expiration Date Visits V isits Requested Authorized [id number] Incomplete 02/29/2020 05/30/2021 1 1 (Routine) - Closed Specialty Diagnoses / Procedures Referred By Contact Refer red To Contact Procedures Josue Salazar MBBS ECG 12 Lead Inpatient [address] [place], [place] [address] Referral ID Status Reason Start Date Expiration Date Visits Requ ested Visits Authorized [id number] Closed 02/29/2020 05/30/2021 1 1 Reason for Visit Reason Comments SOB (SHORTNESS OF BREATH) Encounter Details Date Type Department Care Team Description 02/29/2020 Hospital Encounter [place] [id number] Josue Salazar Righ t-sided chest Urgent Care MBBS pain [address] [place], [place] [facility] [address] [place], [place] [phone] [address] Social History Tobacco Use Types Packs/Day Years [...] Sign Reading Time Taken Comments Blood Pressure 136/67 02/29/2020 8:29 AM CDT Pulse 103 02/29/2020 8:29 AM CDT Temperature 36.8 ??C (98.2 ??F) 02/29/2020 8:29 AM CDT Respiratory Rate 16 02/29/2020 8:29 AM CDT Oxygen Saturation 95% 02/29/2020 8:29 AM CDT Inhaled Oxygen Concentration - - Weight - - Height - - Body Mass Index - - documented in this encounter Discharge Instructions Discharge InstructionsJosue Salazar MBBS - 02/29/2020 10:01 AM CDT Images from the original note were not included. Chest Pain: Care Instructions Your Care Instructions There are many things that can cause chest pain. Some are not serious and will get better on their own in a few days. But some kinds of chest pain need more testing and treatment. Your doctor may have recommended a follow-up visit in the next 8 to 12 hours. If you are not getting better, you may need more tests or treatment. Even though your doctor has released you, you still need to watch for any problems. The doctor carefully checked you, but sometimes problems can develop later. If you have new symptoms or if your symptoms do not get better, get medical care right away. If you have worse or different chest pain or pressure that lasts more than 5 minutes or you passed out (lost consciousness), call 911 or seek other emergency help right away. A medical visit is only one step in your treatment. Even if you feel better, you still need to do what your doctor recommends, such as going to all suggested follow-up appointments and taking medicinesexactly as directed. This will help you recover and help prevent future problems. How can you care for yourself at home? ?? Rest until you feel better. ?? Take your medicine exactly as prescribed. Call your doctor if you think you are having a problem with your medicine. ?? Do not drive after taking a prescription pain medicine. When should you call for help? Call 911 if: ? You passed out (lost consciousness). ? You have severe difficulty breathing. ? You have symptoms of a heart attack. These may include: ? Chest pain or pressure, or a strange feeling in your chest. ? Sweating. ? Shortness of breath. ? Nausea or vomiting. ? Pain, pressure, or a strange feeling in your back, neck, jaw, or upper belly or in one or both shoulders or arms. ? Lightheadedness or sudden weakness. ? A fast or irregular heartbeat. After you call 911, the lamination machine operator may tell you to chew 1 adult-strength or 2 to 4 low-dose aspirin. Wait for an ambulance. Do not try to drive yourself. ?? Call your doctor today if: ? You have any trouble breathing. ? Your chest pain gets worse. ? You are dizzy or lightheaded, or you feel like you may faint. ? You are not getting better as expected. ? You are having new or different chest pain. Where can you learn more? 1. Go to https://Compiere/MapSenserary or Coskata/Free & Clearrary. 2. Enter A120 in the search box. Current as of: March 13, 2019?Content Version: 12.4 ?? [employer]. Care instructions adapted under license by your healthcare professional. If you have questions abouta medical condition or this instruction, always ask your healthcare professional. [employer] disclaims any warranty or liability for your use of this information. documented in this encounter Medications at Time of Discharge Medication Sig Dispensed Refills Start Date End Date PREVIDENT 5000 SENSITIVE 0 01/19/2020 1.1-5 % paste Respiratory Therapy every 4 hours as 1 Each 0 01/03/2020 Supplies (NEBULIZER) needed (for device wheezing). Vitamins/Minerals Take 1 Tab by mouth. 0 albuterol 2.5 mg/3 mL, Inhale 1 Vial every 90 mL 1 11/1703/11/2020 0.083%, (PROVENTIL) 4 hours as needed nebulizer solution for Wheezing (Inhale 3 mLs by nebulization every 4 hours as needed for Wheezing.). ALBUterol sulfate HFA Inhale 1-2 Puffs 1 Inhaler 0 03/04/20 19 05/06/2020 108 (90 Base) MCG/ACT every 4 hours as inhaler needed for Wheezing. Pharmacy may substitute albuterol HFA inhalers based on insurance ALPRAZolam (XANAX) 0.5 TAKE ONE TABLET BY 30 Tablet 0 02/2503/30/2020 MG tablet MOUTH DAILY NEEDED FOR ANXIETY. Next appt 03/11/20 ARIPiprazole (ABILIFY) Take 1 Tablet by 90 Tablet 0 020 06/26/2020 10 MG tablet mouth daily. Next appt 03/11/20 ARIPiprazole (ABILIFY) Take 1 Tablet by 90 Tablet 1 019 03/02/2020 10 MG tablet mouth daily. Next appt due Aug 2019 budesonide-formoterol Inhale 2 Puffs two 1 Inhaler 11 201806/29/2020 (SYMBICORT) 160-4.5 times a day. MCG/ACT inhalerIndications: Moderate persistent asthma without complication (HRC) doxycycline (VIBRAMYCIN) Take 100 mg by 0 020 03/11/2020 100 MG capsule mouth. DULoxetine (CYMBALTA) 30 TAKE 1 CAPSULE BY 60 Capsule 0 05/202003/11/2020 MG capsule MOUTH DAILY FOR 1 WEEK THEN INCREASE TO 2 CAPSULES BY MOUTH DAILY. Next appt 03/11/20 fluconazole (DIFLUCAN) One tablet by mouth. 2 Tablet 0 03/02/2020 150 MG tablet Repeat in 48 hours. ibuprofen (MOTRIN) 600 Take 600 mg by 0 0 01/28/2021 MG tablet mouth. methylphenidate Take 1 Tablet by 90 Tablet 0 02/24/2020 (RITALIN) 20 MG tablet mouth three times a day. May fill on or after 02/24/20. Next appt 03/11/20 oxyCODONE (ROXICODONE) 5 Take 5 mg by mouth. 0 03/02/2020 MG immediate release tablet PARoxetine (PAXIL) 40 MG Take 0.5 Tablets by 30 Tablet 0 03/11/2020 tablet mouth daily for 14 days. zolpidem (AMBIEN) 10 MG Take 1 Tablet by 30 Tablet 5 201803/11/2020 tablet mouth at bedtime as needed. Refills must last 30 days documented as of this encounter ED Notes Den Quezada RN - 02/29/2020 9:06 AM CDT Ambulatory O2 sat 91% on room air Josue Salazar MBBS - 02/29/2020 8:34 AM CDT Chief Complaint: Chief Complaint Patient presents with ??? SOB (SHORTNESS OF BREATH) History of Present Illness: Rajesh Caba is a 49 y.o.female with a h/o asthma who was hospitalized for a right sided pneumonia and right sided pleuritic CP at [facility] a couple of weeks ago and discharged about 1.5 weeks ago comes in complaining of worsening pleuritic CP (same as when she hospitalized) for the last 5-6 days after her prednisone was tapered off. She denies SOB.No cough, fever, chills, sweats, nausea, vomiting, hemoptysis. No recent immobilization, major surgery or prolonged travel. No family h/o unprovoked DVT/PE. She has a h/o pneumothorax in the past and it feels the same. She denies any pedal edema or calf pain. She doesn't smoke. PMH: Reviewed and updated online. I reviewed her records from her recent hospitalization. PE was ruled out. Medications: Reviewed and updated online. Allergies: Reviewed and updated online. Social History: Reviewed and updated online. Objective: BP 136/67 (BP Location: Right Arm, BP Cuff Size: Regular - Long) Pulse (!) 103 Temp 36.8 ??C (98.2 ??F) (Oral) Resp 16 SpO2 95% BP 136/67 (BP Location: Right Arm, BP Cuff Size: Regular - Long) Pulse (!) 103 Temp 36.8 ??C (98.2 ??F) (Oral) Resp 16 SpO2 95% No acute distress noted. HEENT: NCAT. PERRL. EOMI. Sclerae and conjunctivae clear. No icterus. Nares are clear. Oropharynx clear. No tonsillar enlargement or exudate. Uvula is midline. Neck: Supple without adenopathy, thyromegaly, or meningismus. Trachea is midline. Lungs: CTAB with normal effort. No rales, retractions, rhonchi or wheezes. CV: Tachycardic without murmurs, S3 or S4. 1+ pitting edema up to the the knees bilaterally. No calftenderness to palpation. Chest is nontender to palpation. Skin: Good turgor with capillary refill less than 2 seconds. Labs: Results for orders placed or performed during the hospital encounter of 02/29/20 D Dimer (DIMER) Result Value Ref Range D Dimer, Quant 1.27 (H) <=0.50 ug/mL FEU ECG 12 Lead Inpatient Result Value Ref Range Ventricular Rate 93 BPM Atrial Rate 93 BPM P-R Interval 146 ms QRS Duration 78 ms QT 352 ms QTc 437 ms P [place] 37 degrees R [place]oga 64 degrees T [place] 51 degrees 12 lead EKG, requested and reviewed by me, shows NSR without any ischemia or right heart strain pattern. Imaging: Xr Chest 2 Views Result Date: 02/29/2020 COMPARISON: None. FINDINGS: Two views were obtained. Right basilar infiltrate or atelectasis. Heart size and pulmonary vascularity are within normal limits. Small right pleural effusion. Bony thorax isunremarkable. Medical decision making: Patient's pleuritic chest pain is concerning for possible PE. This could also be a sequelae from her pneumonia in the past. She does have some pedal edema which is also concerning for possible thromboembolism. Differential diagnosis at this time would include PE, pneumonia, pleurisy. Assessment: Her chest x-ray shows a consolidation in the right lower lobe with some pleural effusion which couldrepresent a pneumonia that has been partially treated or possible PE. Her D-dimer is elevated at 1.27 and hence, PE is certainly a possibility. Her ambulatory sats did not show any desaturation and hence, it is slightly reassuring. 1. Right-sided chest pain Plan: I discussed with the patient that she needs to be evaluated further for possible PE at an emergency department. Recommend transfer by ambulance. However, patient declines ambulance transfer. She understands the risk. She is willing to have her come and pick her up and take her to the emergencydepartment. She will be going to [facility] for further management. Hemodynamically she is stable at this time. [facility] [address] [facility] [address] now Medications Prescribed this Visit None documented in this encounter Plan of Treatment Upcoming Encounters Date Type Specialty Care Team Description 09/01/2022 Telemedicine [place] [address] [place], [place] [address] (Wo rk) documented as of this encounter Procedures Procedure Name Priority Date/Time Associated Comments Diagnosis XR CHEST 2 VIEWS Routine 02/29/2020 9:11 AM Right-sided chest Results for this CDT pain procedure are i n the results section. D DIMER, QUANTITATIVE STAT 02/29/2020 9:03 AM Right-sided c hest Results for this CDT pain procedure are i n the results section. ECG 12 LEAD INPATIENT STAT 02/29/2020 8:47 AM Results for this CDT procedure are i n the results section. [...] pleural effusion. Bony thorax is unremarkable. Josue EVANS RAD GD (ABNORMAL) D Dimer (DIMER) (02/29/2020 9:03 AM CDT) P athologist Signature D Dimer, Quant 1.27 (H) <=0.50 02/29/2020 [facility] ug/mL FEU 9:43 AM CDT Specimen Anatomical Collection Method / Collection Time Recei janie Time (Source) Location / Volume Laterality Blood Venipuncture / 02/29/2020 9:03 02/29/2020 9:03 Unknown AM CDT AM CDT Narrative [facility] - 02/29/2020 9:43 AM CDT A D-dimer level <=0.50 ug/mL FEU in a patient with a low clinical pretest probability for a 1st episode of DVT can rule out lower extremity DVT (rate of DVT in next 3 months < 2%). ?? For patients greater than 50 years of ag e, the application of age-adjusted cut- off values for D-Dimer may increase the specificity without significant effect on sensitivity. The results in this laborato ry are reported as ug/mL FEU. The calcul ation for age adjusted cut off in ug/mL FEU = age in years x 0.01 ug/mL FEU. For example, the cut off for a 76 year old male is 76 x 0.01 ug/mL FEU = <=0.76 ug/mL FEU. Increased D-dimer is seen in thromboembo lism, DIC, liver disease, renal disease, cardiac infarct and failure, cancer, , stroke, infection, recent surgery, hemorrhage and age > 70 years. D-dimer levels decrease with anticoagula tion therapy and increasing clot age. Josue EVANS LAB_1 Performing Organization Address City/State/ZIP Code Phon e Number [facility] [address] [place] [address] [phone] ECG 12 Lead Inpatient (02/29/2020 8:47 AM CDT) P athologist Signature Ventricular Rate 93 BPM [facility] Atrial Rate 93 BPM [facility] P-R Interval 146 ms [facility] QRS Duration 78 ms [facility] QT 352 ms [facility] QTc 437 ms [facility] P [place] 37 degrees [facility] R [place] 64 degrees [facility] T [place] 51 degrees [facility] Specimen (Source) Anatomical Collection Method Collection Time Re ceived Time Location / / Volume Laterality 02/29/2020 8:47 AM CDT Narrative [facility] - 02/29/2020 10:01 AM CDT Sinus rhythm Normal ECG No previous ECGs available Confirmed by LASHONDA HAWK ([id number]) on 2019 10:01:02 AM Procedure Note Lashonda Hawk MD - 02/29/2020 Sinus rhythm Normal ECG No previous ECGs available Confirmed by LASHONDA HAWK ([id number]) on 2019 10:01:02 AM Josue EVANS PN ECG ORDERABLES Performing Organization Address City/State/ZIP Code Phon e Number [facility] [address] [place] [address] documented in this encounter Visit Diagnoses Diagnosis Right-sided chest pain Triage Assessment Note - Den Quezada RN - 02/29/2020 8:26 AM CDT D/c'd from [facility] 1 1/2 weeks ago. Pt was hospitalized for pneumonia and asthma exacerbation. Pt finished prednisone last Monday and sharp pain with breathing started last Monday. No cough. No fever. documented in this encounter Care Teams Gear Machine Operator Relationship Specialty Start Date End Date Felipe Baum MD PCP - General Family Practice 07/16/19 [address] [place] [address] documented as of this encounter
--- OUTSIDE RECORDS SUMMARY | 2022-08-31 14:57 | XMS_ITS | Encounter Summary ---
:1970 Author Organization [facility] Address [address] [address] Care Team Providers Name Role Phone Felipe Baum MD Primary Care Provider Encounter Details Date Type Department Care Team Description 07/10/2020 Lab Visit [facility] Fatigue, unspecified type [address] [place] [address] Social History Tobacco Use [...] encounter Progress Notes Felipe Baum MD - 07/10/2020 3:20 PM CDT Good morning, Your thyroid function and [...] your insurance requirements, personal health history, and [place] [employer] guidelines. This order will be reviewed within 1 business day and sent to scheduling for one of the following appointments: - Consultation/Office Visit with a Sleep Medicine Specialist - Consultation/Office Visit with an Insomnia Specialist - Portable/Home Sleep Test If you do not hear from our scheduling staff within the next 7 days, please contact us at [phone] and select option 1. If you have any further questions or concerns, please let me know. Also, I placed follow up labs to be done 3 months from now to recheck your HbA1c as well as your cholesterol levels. Felipe Baum MD documented in this encounter Plan of Treatment Upcoming Encounters Date Type Specialty Care Team Description 09/01/2022 Telemedicine [place] [address] [place], [place] [address] (Wo rk) documented as of this encounter Procedures Procedure Name Priority Date/Time Associated Diagnosis Comme nts CBC AND DIFFERENTIAL Routine 07/10/2020 3:15 PM Fatigue, unspe cified Results for this PANEL CDT type procedure are i n the results section. COMPLETE BLOOD Routine 07/10/2020 3:15 PM Fatigue, unspecified Results for this COUNT-W/DIFF CDT type procedure are i n the results section. BASIC METABOLIC PANEL Routine 07/10/2020 3:15 PM Fatigue, unsp ecified Results for this CDT type procedure are i n the results section. TSH, SENSITIVE (WITH Routine 07/10/2020 3:15 PM Fatigue, unspe cified Results for this REFLEX) CDT type procedure are i n the results section. documented in this encounter Results Complete Blood Count-W/Diff (07/10/2020 3:15 PM CDT) P athologist Signature WBC 8.4 3.5 - 10.5 07/10/2020 [facility] x10(9)/L 3:18 PM CDT RBC 4.51 3.90 - 07/10/2020 [facility] 5.03 3:18 PM CDT x10(12)/L Hemoglobin 13.9 12.0 - 07/10/2020 [facility] 15.5 g/dL 3:18 PM CDT HCT 41.4 34.9 - 07/10/2020 [facility] 44.5 % 3:18 PM CDT MCV 91.8 80.0 - 07/10/2020 [facility] 100.0 fL 3:18 PM CDT MCH 30.8 27.6 - 07/10/2020 [facility] 33.3 pg 3:18 PM CDT MCHC 33.6 31.5 - 07/10/2020 [facility] 35.2 g/dL 3:18 PM CDT RDW 12.9 11.9 - 07/10/2020 [facility] 15.5 % 3:18 PM CDT Platelets 299 150 - 450 07/10/2020 [facility] x10(9)/L 3:18 PM CDT Neutrophil 5.0 1.7 - 7.0 07/10/2020 [facility] Absolute 10(9)/L 3:18 PM CDT Lymphocyte 2.7 1.0 - 4.8 07/10/2020 [facility] Absolute 10(9)/L 3:18 PM CDT Monocytes 0.5 0.2 - 0.9 07/10/2020 [facility] Absolute 10(9)/L 3:18 PM CDT Eosinophil 0.1 0.0 - 0.5 07/10/2020 [facility] Absolute 10(9)/L 3:18 PM CDT Basophil 0.0 0.0 - 0.3 07/10/2020 [facility] Absolute 10(9)/L 3:18 PM CDT Immature Gran % 0.1 0.0 - 0.5 07/10/2020 [facility] % 3:18 PM CDT Specimen Anatomical Collection Method / Collection Time Recei janie Time (Source) Location / Volume Laterality Blood Venipuncture / 07/10/2020 3:15 07/10/2020 3:15 Unknown PM CDT PM CDT Felipe Baum MD LAB_1 Performing Organization Address City/State/ZIP Code Phon e Number [facility] [address] [place] [address] (ABNORMAL) Basic Metabolic Panel (07/10/2020 3:15 PM CDT) Analysis Performed At Patho logist Time Signature Sodium 146 (H) 136 - 145 07/10/2020 [facility] mmol/L 8:40 PM CDT LABORATORY Potassium 4.0 3.5 - 5.1 07/10/2020 [facility] mmol/L 8:40 PM CDT LABORATORY Chloride 113 (H) 98 - 109 07/10/2020 [facility] mmol/L 8:40 PM CDT LABORATORY CO2 25 20 - 29 07/10/2020 [facility] mmol/L 8:40 PM CDT LABORATORY Anion Gap 8 7 - 16 07/10/2020 [facility] mmol/L 8:40 PM CDT LABORATORY Calcium 9.2 8.4 - 10.4 07/10/2020 [facility] mg/dL 8:40 PM CDT LABORATORY BUN 13 7 - 26 07/10/2020 [facility] mg/dL 8:40 PM CDT LABORATORY Creatinine 0.80 0.55 - 07/10/2020 [facility] 1.02 mg/dL 8:40 PM CDT LABORATORY GFR, Estimated >60 >60 07/10/2020 [facility] mL/min/1.7 8:40 PM CDT LABORATORY 3m2 Glucose 104 (H) 70 - 100 07/10/2020 [facility] mg/dL 8:40 PM CDT LABORATORY Comment: The [...] Organization Address City/State/ZIP Code Phon e Number [facility] [address] [place] [address] [facility] [address] [place] [address], [phone] [facility] TSH with Free T4 (if TSH Abnormal) (07/10/2020 3:15 PM CDT) P athologist Signature TSH, Reflex 1.01 0.30 - 4.50 07/10/2020 [facility] uIU/mL 9:33 PM CDT LABORATORY Specimen Anatomical Collection Method / Collection Time Recei janie Time (Source) Location / Volume Laterality Blood Venipuncture / 07/10/2020 3:15 07/10/2020 3:15 Unknown PM CDT PM CDT Narrative [facility] - 07/10/2020 9:33 P M CDT Lab will automatically reflex to Free T4 when TSH results are <0.30 uIU/mL or >4.50 mIU/mL. Felipe Baum MD LAB_1 Performing Organization Address City/State/ZIP Code Phon e Number [facility] [address] [place] [address] documented in this encounter Visit Diagnoses Diagnosis Fatigue, unspecified type documented in this encounter Care Teams Airplane Mechanic Relationship Specialty Start Date End Date Felipe Baum MD PCP - General Family Practice 07/16/19 [address] [place] [address] documented as of this encounter
--- OUTSIDE RECORDS SUMMARY | 2022-08-31 14:57 | XMS_ITS | Encounter Summary ---
:1970 Author Organization [facility] Address [address] [address] Care Team Providers Name Role Phone Felipe Baum MD Primary Care Provider Encounter Details Date Type Department Care Team Description 03/05/2020 Partner ED Initial Department Provider, [facility] [address] Lagos MD 02/29/2020 [place], [place] [address] Interface [phone] [place] [address] Social History Tobacco Use Types Packs/Day Years [...] 09/01/2022 Telemedicine [place] [address] [place], [place] [address] (Wo rk) documented as of this encounter Visit Diagnoses Not on filedocumented in this encounter Care Teams Transportation Planner Relationship Specialty Start Date End Date Felipe Baum MD PCP - General Family Practice 07/16/19 [address] [place] [address] documented as of this encounter
--- OUTSIDE RECORDS SUMMARY | 2022-08-31 14:57 | XMS_ITS | Encounter Summary ---
:1970 Author Organization [facility] Address [address] [address] Care Team Providers Name Role Phone Felipe Baum MD Primary Care Provider Reason for Visit Reason Comments QUESTIONS, GENERAL Encounter Details Date Type Department Care Team Description 05/08/2020 Telephone [place] [address] Family Deysi Baum MD QUESTIONS, GENERAL Medicine [address] [facility] [address] [place] [address] [place] [address] [phone] Social History Tobacco Use Types Packs/Day Years [...] documented as of this encounter Nursing Notes Larisa Rodriguez RN - 05/08/2020 4:39 PM CDT Clinician Action: fyi only Clinician Next Step: Patient is NOT expecting a call back from care team and Close encounter Specific Request(s): 1. Spoke with pt, who is calling to simply update PCP that she is beginning [employer] diet plan beginning 05/09. No need to call back, just wants to make PCP aware. Frida Reich - 05/08/2020 3:21 PM CDT Miscellaneous Questions & FYI's - Question/Concern (DO NOT use for billing and coding concerns see BEST care reporting system) What is your question or concern? Pt is starting a new diet and is wanting to know if she can get a call back from nurse to discuss it. Is it okay to leave a detailed message on your voicemail? Yes (Advise caller that the PN call back number will end with [phone] or unknown) Please route to: Appropriate pool per call routing grid documented in this encounter Plan of Treatment Upcoming Encounters Date Type Specialty Care Team Description 09/01/2022 Telemedicine [place] [address] [place], [place] [address] (Wo rk) documented as of this encounter Visit Diagnoses Not on filedocumented in this encounter Care Teams Vocational Case Manager Relationship Specialty Start Date End Date Felipe Baum MD PCP - General Family Practice 07/16/19 [address] [place] [address] documented as of this encounter
--- OUTSIDE RECORDS SUMMARY | 2022-08-31 14:57 | XMS_ITS | Encounter Summary ---
:1970 Author Organization [facility] Address [address], [place] [address] Care Team Providers Name Role Phone Felipe Baum MD Primary Care Provider Reason for Visit Reason Onset Date Comments Refill 05/06/2020 ALBUterol sulfate HF A 108 (90 Base) MCG/ACT inhaler Encounter Details Date Type Department Care Team Description 05/06/2020 Refill [place] [id number] Family Deysi Baum MD Refill (ALBUterol Medicine [address] sulfate HFA 108 ([id number] [place] [address] Base) MCG/ACT inhaler) [place], [place] [phone] (Wo rk) [id number] [phone] Social History Tobacco Use Types Packs/Day Years [...] place to sleep or slept in a penitentiary (including now)? Sex Assigned at Date Recorded Female 04/30/2021 11:10 AM CDT documented as of this encounter Nursing Notes Frida Reich - 05/08/2020 3:20 PM CDT Pt calling back to say she will be out of medication today. Shanell Radford RN - 05/08/2020 8:08 AM CDT Further Assistance Needed on Refill from Clinician RN reviewed. Signed order needed. Requested medication needs an order signed by an authorized prescriber. Last qualifying visit: 03/02/2020 Review pended order for accuracy and sign if appropriate and Document if appointment is needed for further refills Requested Prescriptions Pending Prescriptions Disp Refills ??? ALBUterol sulfate HFA 108 (90 Base) MCG/ACT inhaler Sig: Inhale 1-2 Puffs every 4 hours as needed for Wheezing. Pharmacy may substitute albuterol HFA inhalers based on insurance Interface, Out GetMyRx Prov Query - 05/06/2020 12:07 PM CDT ALBUterol sulfate HFA 108 (90 Base) MCG/ACT inhaler Medication started: 01/30/2018 Last ordered by HUANG SCHOFIELD K: 03/04/2019 (429 days ago) QTY: 1, Refills: 0, Sig: inhale 1-2 puffs every 4 hours as needed for wheezing. pharmacy may substitute albuterol hfa inhalers based on insurance (unchanged) -> The requested medication order is for a different provider than the most recent renewal. -> Refill x 12 months (until due for an office visit) -> Calculate the quantity and number of refills manually. Last qualifying visit: 03/02/2020 (with FELIPE BAUM) Next scheduled visit: None SBP: 118 mm Hg on 10/03/2019 DBP: 76 mm Hg on 10/03/2019 Powered by [employer], Reference: [id number], 05/06/2020 12:07:13 PM CDT, Pool: JAVIER REFILL ([id number]) documented in this encounter Plan of Treatment Upcoming Encounters Date Type Specialty Care Team Description 09/01/2022 Telemedicine [place] [address] [place], [place] [address] (Wo rk) documented as of this encounter Visit Diagnoses Not on filedocumented in this encounter Care Teams Security Patrol Driver Relationship Specialty Start Date End Date Felipe Baum MD PCP - General Family Practice 07/16/19 [address] [place] [address] documented as of this encounter
--- OUTSIDE RECORDS SUMMARY | 2022-08-31 14:57 | XMS_ITS | Encounter Summary ---
:1970 Author Organization [facility] Address [address] [place] [address] Care Team Providers Name Role Phone Felipe Baum MD Primary Care Provider Reason for Visit Reason Comments HIP PAIN right pain- no injury noted Encounter Details Date Type Department Care Team Description 12/14/2020 Office Visit [place] [address] Felipe Baum Trochan teric bursitis of right hip (Primary Dx); Family Medicine Breast cancer screening by mammogram [address] [facility] [address] [place] [address] [phone] Social History Tobacco Use Types Packs/Day Years [...] Sign Reading Time Taken Comments Blood Pressure 124/88 12/14/2020 3:14 PM CDT Pulse 123 12/14/2020 3:14 PM CDT Temperature - - Respiratory Rate 18 12/14/2020 3:14 PM CDT Oxygen Saturation - - Inhaled Oxygen Concentration - - Weight 110.2 kg (243 lb) 12/14/2020 3:14 PM CDT Height - - Body Mass Index 32.96 09/13/2019 1:09 PM [employer] documented in this encounter Patient Instructions Patient InstructionsFelipe Baum MD - 12/14/2020 3:20 PM CDT Images from the original note were not included. ??? Please call [phone] to schedule a lab appointment. Please fast for 10 or more hours beforehand. Trochanteric Bursitis: Exercises Introduction Here are some examples of exercises for you to try. The exercises may be suggested for a condition or for rehabilitation. Start each exercise slowly. Ease off the exercises if you start to have pain. You will be told when to start these exercises and which ones will work best for you. How to do the exercises Hamstring wall stretch 1. Lie on your back in a doorway, with your good leg through the open door. 2. Slide your affected leg up the wall to straighten your knee. You should feel a gentle stretch down the back of your leg. 3. Hold the stretch for at least 1 minute to begin. Then try to lengthen the time you hold the stretch to as long as 6 minutes. 4. Repeat 2 to 4 times. 5. If you do not have a place to do this exercise in a doorway, there is another way to do it: 6. Lie on your back, and bend the knee of your affected leg. 7. Loop a towel under the ball and toes of that foot, and hold the ends of the towel in your hands. 8. Straighten your knee, and slowly pull back on the towel. You should feel a gentle stretch down the back of your leg. 9. Hold the stretch for 15 to 30 seconds. Or even better, hold the stretch for 1 minute if you can. 10. Repeat 2 to 4 times. 1. Do not arch your back. 2. Do not bend either knee. 3. Keep one heel touching the floor and the other heel touching the wall. Do not point your toes. Straight-leg raises to the outside 1. Lie on your side, with your affected leg on top. 2. Tighten the front thigh muscles of your top leg to keep your knee straight. 3. Keep your hip and your leg straight in line with the rest of your body, and keep your knee pointing forward. Do not drop your hip back. 4. Lift your top leg straight up toward the ceiling, about 12 inches off the floor. Hold for about 6seconds, then slowly lower your leg. 5. Repeat 8 to 12 times. Clamshell 1. Lie on your side, with your affected leg on top and your head propped on a pillow. Keep your feetand knees together and your knees bent. 2. Raise your top knee, but keep your feet together. Do not let your hips roll back. Your legs should open up like a clamshell. 3. Hold for 6 seconds. 4. Slowly lower your knee back down. Rest for 10 seconds. 5. Repeat 8 to 12 times. Standing quadriceps stretch 1. If you are not steady on your feet, hold on to a chair, counter, or wall. You can also lie on your stomach or your side to do this exercise. 2. Bend the knee of the leg you want to stretch, and reach behind you to grab the front of your footor ankle with the hand on the same side. For example, if you are stretching your right leg, use yourright hand. 3. Keeping your knees next to each other, pull your foot toward your buttock until you feel a gentlestretch across the front of your hip and down the front of your thigh. Your knee should be pointed directly to the ground, and not out to the side. 4. Hold the stretch for 15 to 30 seconds. 5. Repeat 2 to 4 times. Piriformis stretch 1. Lie on your back with your legs straight. 2. Lift your affected leg and bend your knee. With your opposite hand, reach across your body, and then gently pull your knee toward your opposite shoulder. 3. Hold the stretch for 15 to 30 seconds. 4. Repeat 2 to 4 times. Double [id number] 1. Lie on your back with your knees bent and your feet flat on the floor. You can put a small pillowunder your head and neck if it is more comfortable. 2. Bring both knees to your chest. 3. Keep your lower back pressed to the floor. Hold for 15 to 30 seconds. 4. Relax, and lower your knees to the starting position. 5. Repeat 2 to 4 times. Follow-up care is a ritter part of your treatment and safety. Be sure to make and go to all appointments, and call your doctor if you are having problems. It's also a good idea to know your test results and keep a list of the medicines you take. Where can you learn more? 1. Go to https://www.fotopedia.[employer]/healthlibrary. 2. Enter N503 in the search box. Current as of: August 03, 2020?Content Version: 12.8 ?? [employer]. Care instructions adapted under license by your healthcare professional. If you have questions abouta medical condition or this instruction, always ask your healthcare professional. [employer] disclaims any warranty or liability for your use of this information. documented in this encounter Progress Notes Felipe Baum MD - 12/14/2020 3:20 PM CDT Subjective Chief Complaint Patient presents with ??? HIP PAIN right pain- no injury noted Rajesh Caba is a 50 y.o. female who presents for evaluation of right hip pain. The patient states about 5 days ago she began having pain in her right [...] never had issues with the hip before. Review of Systems A complete review of systems was negative except for above as mentioned in the HPI. Objective BP 124/88 (BP Location: Left Arm, BP Cuff Size: Regular) Pulse (!) 123 Resp 18 Wt 243 lb (110.2 kg) BMI 32.96 kg/m?? Physical Exam Constitutional: She is well-developed, well-nourished, and in no distress. HENT: Head: Normocephalic and atraumatic. Eyes: Conjunctivae are normal. Musculoskeletal: Comments: Tenderness over the right lateral hip bursa. Neurological: She is alert. Skin: Skin is warm and dry. Psychiatric: Affect normal. Vitals reviewed. Trochanteric bursa injection The patient was advised of the risks and benefits of the procedure and verbal consent was obtained. Timeout to ensure correct patient and injection site was performed. Sterile technique was used. The most painful aspect of the right lateral hip was identified and marked and was then injected with 1 mLof Kenalog- 40 and 9 mL of 1% lidocaine. The patient tolerate the procedure well. Assessment/Plan Rajesh was seen today for hip pain. Diagnoses and all orders for this visit: Trochanteric bursitis of right hip Breast cancer screening by mammogram - MM Mammogram Screening Bilat W CAD; Future Right trochanteric bursitis - She had tenderness over the trochanteric bursa so I did offer an injection, which she tolerated well as above. - If not improving as expected, she will let us know at which time we can obtain an x-ray and refer to Orthopedics if indicated. - Discussed signs and symptoms of joint infection to watch out for. - Follow up if not improving as expected or with any worsening. Breast Cancer Screening - Mammogram is due and ordered today. Felipe Baum MD 12/14/2020 documented in this encounter Plan of Treatment Upcoming Encounters Date Type Specialty Care Team Description 09/01/2022 [facility] [place] [address] [place], [place] [address] (Wo rk) documented as of this encounter Visit Diagnoses Diagnosis Trochanteric bursitis of right hip - Denice rosio Enthesopathy of hip region Breast cancer screening by mammogram documented in this encounter Care Teams Medical Front Desk Coordinator Relationship Specialty Start Date End Date Felipe Baum MD PCP - General Family Practice 07/16/19 [address] [place] [address] documented as of this encounter
--- OUTSIDE RECORDS SUMMARY | 2022-08-31 14:57 | XMS_ITS | Encounter Summary ---
:1970 Author Organization [facility] Address [address], [place] [address] Care Team Providers Name Role Phone Felipe Baum MD Primary Care Provider Reason for Referral Consult/Transfer Care (Routine) - Closed Specialty Diagnoses / Procedures Referred By Contact Refer red To Contact Diagnoses Obesity (BMI 30-39.9) (HRC) Snoring Stanislaw Sultana MD [address] [place], [place] [address] Referral ID Status Reason Start Date Expiration Date Visits Requ ested Visits Authorized [id number] Closed 05/04/2021 08/03/2022 1 1 Scheduling Instructions Your provider has recommended an appoint ment with [facility]. This is not a sleep study order and must first be re viewed by a sleep specialist to determine the next steps. The review process looks at multiple factors including your insurance requirements, personal health history, a nd [employer] guidelines. This order will be reviewed within 1 and sent to scheduling for one of the following appointments: - Consultation/Office Visit with a Slee p Medicine Specialist - Consultation/Office Visit with an Ins omnia Specialist - Portable/Home Sleep Test If you do not hear from our scheduling s taff within the next 7 days, please contact us at [phone] and select option 1. Reason for Visit Reason Comments CONSULT Video Visit Encounter Details Date Type Department Care Team Description 05/04/2021 Telemedicine [facility] Jimmie, Georges Franco PA-C [address] [facility] [address] [place], [place] [id number] Prediabetes (Primary Dx); Center Bariatric Stanislaw Sultana MD [address] [place] [address] Moderate persistent asthma without compl ication; Surgery Major depressive disorder, r ecurrent episode with seasonal pattern (HRC); [address] [facility] [address] Anxiety disorder, unspecifie d type; [place], [place] Attention de ficit hyperactivity disorder (ADHD), unspecified ADHD type; [address] Insomnia, unspecified type; [phone] Obesity (BMI 30 -39.9); Abnormal weight gain; Personal histor y of endocrine disorder; Snoring Social History Tobacco Use Types Packs/Day Years [...] - Inhaled Oxygen Concentration - - Weight 117.9 kg (260 lb) 05/04/2021 12:21 PM CDT Height 182.9 cm (6') 05/04/2021 12:21 PM CDT Body Mass Index 35.26 05/04/2021 12:21 PM CDT documented in this encounter Patient Instructions Patient InstructionsStanislaw Sultana MD - 05/04/2021 1:00 PM CDT Resume gym exercise. Goal is at least twice a week in addition to your walking. If you don't hear from sleep medicine in about 1 week then give them a call. Start Topamax 25 mg twice a day. You can also try taking all 50 mg in the late afternoon/before dinner. We also discussed metformin, an injectable like Victoza/Ozempic/Trulicity, naltrexone for food addiction, and Vyvanse in place of Ritalin for possible binge eating. Weight Management Lab Instructions- Please have these done at least 1 week prior to your next weightfollow up. Instructions for lab draws include the followin. No vitamins or supplements for 24 hours prior to the test 2. No alcohol for 24 hours prior to the test 3. You must fast (no food or fluids other than water) for 12 hours prior to the test. You may call [phone] to schedule a lab appointment. documented in this encounter Progress Notes Stanislaw Sultana MD - 05/04/2021 1:00 PM CDT Metabolic Health and Weight Management INITIAL ASSESSMENT CHIEF COMPLAINT Chief Complaint Patient presents with ??? CONSULT ??? Video Visit HPI Rajesh Caba is a 50 y.o. female with chronic medical problems including IFG, asthma, depression, anxiety, ADHD, and insomnia, who was referred/seeks to treat the following obesity-associated medical conditions by aggressive management of weight: IFG, asthma, sleep disturbance, weight-bearing joint pain, fatigue, and low back pain. Patient's weight history is as follows: Bariatric Weight History and Calculations Weight History Age at Onset of Obesity: 45 Highest Adult Weight: 260 lb Preferred Weight: 150 lb Lowest Adult Weight: 140 lb At what weight would you not be disappointed?: 175 lb Starting Weight: 260 lb Current Weight: 260 lb Height (in): 72 Weight Calculations Excess Weight: 88 lb Current Weight Loss: 0 lb Goal Weight: 172 lb Starting BMI: [id number] Percent Exess Weight Loss: 0 Current BMI: 35.3106763905227 Percent Totoal Body Weight Loss: 0 Patient reports being tall, thin, and very active through her 30s. Had weight gain starting around age 40 with her 4th and taking Abilify for depression. Patient has made previous weight loss attempts: Yes Nutrisystem 6 month Previous medication trials for weight loss: - Wellbutrin: Taken for depression, no weight loss, became less effective for mood - Ritalin: Sometimes helpful for appetite, no obvious weight change Exercise: Walking for 30 minutes 3-4 times a week, exercise limited by time constraints Significant Eating Patterns Patient eats most at home: Yes Patient cooks most of my meals: No Patient orders out many meals per week: Yes Patient eats most of meals at the kitchen table without distraction: No Patient eats most of my meals in front of the TV, computer or other electronic devices: Yes Current Binge Eating Symptoms: Objective binges at least 1x per week for the past 3 months: False Patient senses lack of control over eating during the binges: False Eating until uncomfortably full: False Eating large amounts when not physically hungry: True Eating much more rapidly than usual: False Eating alone due to being embarrassed by the amount eaten: False Patient feels disgusted, depressed, or guilty after overeating: False Addicted to food: False Patient sometimes goes all day without eating and then starts eating around 7pm. Will have dinner (half take out -taco fairchild, sushi and half home cooked -pasta, chicken/veg, steak, stir lyons, stateless food. Starting about 1-2 hours after dinner she will want to snack. She will eat apples/pb, mac&cheese, poached eggs with toast, cereal, etc. Sometimes will fall asleep and wake around 3-4 am and go downstairs to get a snack/cereal. Patient feels addicted to food (mac&cheese, candy). PSYCHOLOGICAL HISTORY History of Previous Eating Disorder: Neg REVIEW OF SYSTEMS: A complete 10-point ROS was negative with the exception of the following: Review of symptoms positive for the following: Fatigue Shortness of Breath Walking Low Back Pain Pertinant negatives: Dizziness Headaches Excessive burping Palpations Chest Pain Nausea Dental Problems Shortness of Breath At Rest Blurry Vision Over the past year, the patient notes the following: Burning or pain behind breastbone: Never Burning or pain in upper abdomen: Occasionally Bitter liquid coming up from your stomach into your throat: Occasionally Sick during or after a meal: Never Nausea or you vomit: Never Average hours of sleep per night: 8 Stop Bang Score: 2 Patient endorses loud snoring. Patient Active Problem List Diagnosis ??? Major depressive disorder, recurrent episode with seasonal pattern (HRC) ??? Anxiety disorder (HRC) ??? ADHD (attention deficit hyperactivity disorder) ??? Low back pain (HRC) ??? Radiculopathy ??? Insomnia ??? Encounter for long-term (current) use of medications ??? Asthma ??? Prediabetes PAST MEDICAL/SURGICAL HISTORY: Patient Reported Medical History Weight bearing joint pain Asthma Pertinant Negatives High Blood Pressure Cardiovascular disease High cholesterol or triglycerides Diabetes Sleep apnea Fatty liver disease Obesity Polycystic Ovary Syndrome (PCOS) Infertility Abnormal bleeding History of blood clot(s) Urinary stress (incontinence) Kidney or bladder problems Anemia (low hemoglobin) Pseudotumor cerebri Thyroid Cancer Heart valve problems Past Surgical History: Procedure Laterality Date ??? HERNIA REPAIR 1975 ??? HX APPENDECTOMY 1984 ??? LUNG SURGERY 1989 Spontaneous , treated with scarring therapy CURRENT MEDICATIONS: Outpatient Medications Prior to Visit Medication Sig Note Dispense Refill ??? ALBUterol sulfate HFA 108 (90 Base) MCG/ACT inhaler Inhale 1-2 Puffs every 4 hours as needed forWheezing. Pharmacy may substitute albuterol HFA inhalers based on insurance 1 Each ??? ALPRAZolam (XANAX) 0.5 MG tablet Take 1 Tablet by mouth daily as needed for Anxiety. Appointment: 05/25/[address] Rich 30 Tablet 1 ??? ARIPiprazole (ABILIFY) 15 MG tablet Take 0.5 Tablets by mouth daily. Please note lower dose and change in tablet strength. 45 Tablet 0 ??? budesonide-formoterol (SYMBICORT) 160-4.5 MCG/ACT inhaler Inhale 2 Puffs two times a day. Rinse mouth/gargle after use. 3 Each 2 ??? Cetirizine HCl (ZYRTEC ALLERGY) 10 MG CAPS ??? DULoxetine (CYMBALTA) 60 MG capsule Take 1 Capsule by mouth daily. 90 Capsule 1 ??? ipratropium-albuterol (DUONEB) 0.5-2.5 (3) mg/3ml nebulizer solution Inhale 3 mL every 6 hours as needed for Wheezing. 120 mL 1 ??? medroxyPROGESTERone Acetate (DEPO-PROVERA IM) ??? [START ON 05/05/2021] methylphenidate (RITALIN) 20 MG tablet Take 1 Tablet by mouth three times aday. May fill on or after 05/05/21 90 Tablet 0 ??? PREVIDENT 5000 SENSITIVE 1.1-5 % paste ??? Respiratory Therapy Supplies (NEBULIZER) device every 4 hours as needed (for wheezing). 1 Each 0 ??? Vitamins/Minerals Take 1 Tab by mouth. 01/30/2018: Received from: Emilie Thapa Sig: Take 1 tablet by mouth daily ??? zolpidem (AMBIEN) 10 MG tablet TAKE ONE TABLET BY MOUTH AT BEDTIME NEEDED 30 Tablet 2 No facility-administered medications prior to visit. ADVERSE DRUG REACTIONS/ALLERGIES: No Known Allergies FAMILY HISTORY: Family History Problem Relation Age [...] Cancer, Breast Negative Family History SOCIAL HISTORY: . Four daughters. Currently getting her bachelors in nursing. PHYSICAL EXAMINATION: Vitals: Ht 6' (182.9 cm) Wt 260 lb (029764 g) BMI 35.26 kg/m?? General/constitutional: Alert in no acute distress. Head: Normocephalic, without obvious abnormality, atraumatic, normal hair growth. Eyes: EOMI bilaterally. Mouth/Throat: Lips and teeth normal. Neck/lymph: Supple, symmetrical. Lungs: Respirations unlabored. Skin: No rashes on exposed skin. Psychiatric: Oriented x 3. Affect appropriate. No evidence of overt anxiety or depression. ASSESSMENT/PLAN We will work together to treat the following obesity-associated medical conditions and conditions exacerbated by or contributing to weight gain by aggressive management of weight: ICD-10-CM 1. Prediabetes R73.03 Hgb A1c 2. Moderate persistent asthma without complication J45.40 3. Major depressive disorder, recurrent episode with seasonal pattern ([facility]) F33.9 4. Anxiety disorder, unspecified type ([facility]) F41.9 5. Attention deficit hyperactivity disorder (ADHD), unspecified ADHD type F90.9 6. Insomnia, unspecified type G47.00 7. Obesity (BMI 30-39.9) ([facility]) E66.9 Vitamin D 25-Hydroxy, Total Sleep Consult - if STOP BANG >5 and no prior sleep study topiramate (TOPAMAX) 25 MG tablet 8. Abnormal weight gain R63.5 Hgb A1c AST ALT (SGPT) Lipid Panel and Direct LDL(If Needed) Vitamin D 25-Hydroxy, Total 9. Personal history of endocrine disorder Z86.39 Vitamin D 25-Hydroxy, Total Vitamin B6 (8Hr Fast Recommended) Vitamin B1, Blood 10. Snoring R06.83 Sleep Consult - if STOP BANG >5 and no prior sleep study The patient would like to pursue a medical intervention for weight loss at this time. She would be open to bariatric surgery in the future if she is not having success with medications for weight loss and if she qualifies. Currently her BMI is less 40, but she does have asthma and possible diabetes. She is in need of working on lifestyle changes. -We will perform labs to evaluate for obesity- associated comorbid issues. Labs as above. -The patient does have signs of emotionally dysregulated food intake and /or eating disorder and will not be referred to psychology for further evaluation of these symptoms - possible night eating syndrome. -Nutrition: Schedule consult with dietitian. -Exercise: Patient will not be referred to PT for additional assistance with developing a home exercise regimen. Resume gym exercise. Continue regular walking. -Medications: Start Topamax 25 mg b.i.d.. She can also try taking all 50 mg in the late afternoon as she struggles with night eating. Side effects reviewed at length. She has no history of nephrolithiasis and is on Depo. -Patient is currently taking the following medicaton [...] for additional weight loss include the following: Metformin,GLP1 Ag, naltrexone (for food addiction, patient has a strong family history of substance abuse), Vyvanse in place of Ritalin (if more evidence of binge eating and if okayed by psychiatrist) -The following weight-loss medications may not be recommended for this patient: Phentermine (anxiety, insomnia), Wellbutrin (lost effectiveness for depression previously, but no side effects, so couldconsider) -Other: Referral for home sleep test. Follow up with me: in 2-3 months. Total time 60 minutes, [id number] counseling time 35 minutes, spent discussing the physiology of weight regulation and interventions for management, including lifestyle, pharmacotherapy, and (if applicable) surgical interventions. Pros and cons and appropriateness of each for this particular patientwere discussed, as well as the plan outlined above. This service was provided via telehealth and conducted using a synchronous audiovideo link. Location of clinician: clinic Location of patient: home Time spent on video in [id number]-di-gwel contact with patient, if applicable: N/A documented in this encounter Nursing Notes Otilia Gunter RN - 05/04/2021 1:00 PM CDT Standard rooming via telephone with medical records updated. Reported height of 72 inches and weight of 260 lbs calculates BMI of 35.26. Pt's preference: Open to discussing. No prior bariatric surgery. Previous/current weight loss medications: None. No known history of PRAMOD. Provided her my direct contact number for questions. Otilia Gunter RN 12:22 PM 05/04/2021 documented in this encounter Plan of Treatment Upcoming Encounters Date Type Specialty Care Team Description 09/01/2022 Telemedicine [place] [address] [place], [place] [address] (Wo rk) Scheduled Referrals Name Type Priority Associated Diagnoses Order S chedule Sleep Consult - if Referral Routine Obesity (BMI 30-39.9) Ordered: 05/04/2021 STOP BANG >5 and no Snoring prior sleep study documented as of this encounter Results (ABNORMAL) Vitamin B1, Blood (05/13/2021 10:56 AM CDT) P athologist Signature Vitamin B1 182 (H) 70 - 180 05/16/2021 [facility] nmol/L 4:14 PM CDT Comment: INTERPRETIVE INFORMATION: Vitamin B1, Wh ole Blood This assay measures the concentration of thiamine diphosphate (TDP), the primary active form of vitami n B1. Approximately 90 percent of vitamin B1 present in whole b lood is TDP. Thiamine and thiamine monophosphate, which comprise t he remaining 10 percent, are not measured. This test was developed and its performa nce characteristics determined by [facility]. It has not been cleared or approved by the [place] Food and Drug Adminis tration. This test was performed in a CLIA certified laboratory and is intended for clinical purposes. Performed By: [facility] [address] [place] [address] Bark Fitter: Abby Francisco MD Specimen Anatomical Collection Method / Collection Time Recei janie Time (Source) Location / Volume Laterality Blood Venipuncture / 05/13/2021 10:56 1 Unknown AM CDT 10:56 AM CDT Stanislaw Sultana MD LAB_1 Performing Organization Address [facility] Phon e Number [facility] JDCPhosphate [address] [place] [address] [phone] Vitamin B6 (8Hr Fast Recommended) (05/13/2021 10:56 AM CDT) athologist Signature Vitamin B6 41.1 20.0 - 05/16/2021 [facility] JDCPhosphate 125.0 8:22 PM CDT nmol/L Comment: INTERPRETIVE INFORMATION: Vitamin B6 (Py ridoxal 5-Phosphate) Pyridoxal 5'-phosphate measured in a spe cimen collected following an 8-hour or overnight fast accurately i ndicates vitamin B6 nutritional status. Non-fasting specimen concentration reflects recent vitamin intake. This test was developed and its performa nce characteristics determined by [facility]. It has not been cleared or approved by the US Food and Drug Adminis tration. This test was performed in a CLIA certified laboratory and is intended for clinical purposes. Performed By: [facility] [address] [place] [address] Bark Fitter: Abby Francisco MD Specimen Anatomical Collection Method / Collection Time Recei janie Time (Source) Location / Volume Laterality Blood Venipuncture / 05/13/2021 10:56 1 Unknown AM CDT 10:56 AM CDT Stanislaw Sultana MD LAB_1 Performing Organization Address [facility]/State/ZIP Code Phon e Number [facility] [address] [place], [place] [phone] Vitamin D 25-Hydroxy, Total (05/13/2021 10:56 AM CDT) P athologist Signature Vitamin D, 34 30 - 80 05/13/2021 [facility] 25-OH, Total ng/mL 4:34 PM CDT LABORATORY Specimen Anatomical Collection Method / Collection Time Recei janie Time (Source) Location / Volume Laterality Blood Venipuncture / 05/13/2021 10:56 1 Unknown AM CDT 10:56 AM CDT Stanislaw Sultana MD LAB_1 Performing Organization Address City/State/ZIP Code Phon e Number [facility] [address] [place] [address] (ABNORMAL) Lipid Panel and Direct LDL(If Needed) (05/13/2021 10:56 AM CDT) [facility] Method Time Signature Cholesterol 163 0 - 199 05/14/2021 [facility] mg/dL 9:42 AM CDT LABORATORY Triglyceride 276 (H) <=149 05/14/2021 [place] mg/dL 9:42 AM CDT LABORATORY HDL Cholesterol 35 (L) >=40 05/14/2021 [place] mg/dL 9:42 AM CDT LABORATORY LDL, Calculated 73 <130 05/14/2021 [place] mg/dL 9:42 AM CDT LABORATORY Non HDL Chol, 128 <=159 05/14/2021 [facility] Calculated mg/dL 9:42 AM CDT LABORATORY Cholesterol/HDL 4.7 05/14/2021 [place] Ratio 9:42 AM CDT LABORATORY Hours Fasting 12 05/14/2021 [facility] 9:42 AM CDT Specimen Anatomical Collection Method / Collection Time Recei janie Time (Source) Location / Volume Laterality Blood Venipuncture / 05/13/2021 10:56 1 Unknown AM CDT 10:56 AM CDT Stanislaw Sultana MD LAB_1 Performing Organization Address City/State/ZIP Code Phon e Number [facility] [address] [place] [phone] [facility] [address] [place] [phone], [facility] ALT (SGPT) (05/13/2021 10:56 AM CDT) athologist Signature ALT (SGPT) 35 0 - 55 U/L 05/14/2021 [facility] 9:42 AM CDT LABORATORY Specimen Anatomical Collection Method / Collection Time Recei janie Time (Source) Location / Volume Laterality Blood Venipuncture / 05/13/2021 10:56 1 Unknown AM CDT 10:56 AM CDT Stanislaw Sultana MD LAB_1 Performing Organization Address City/[facility]/ZIP Code Phon e Number [facility] [address] [place] [phone] AST (05/13/2021 10:56 AM CDT) athologist Signature AST (SGOT) 27 10 - 40 U/L 05/14/2021 [facility] 9:42 AM CDT LABORATORY Specimen Anatomical Collection Method / Collection Time Recei janie Time (Source) Location / Volume Laterality Blood Venipuncture / 05/13/2021 10:56 1 Unknown AM CDT 10:56 AM CDT Stanislaw Sultana MD LAB_1 Performing Organization Address City/[facility]/ZIP Code Phon e Number [facility] [address] [place] [phone] (ABNORMAL) Hgb A1c (05/13/2021 10:56 AM CDT) [facility] Method Time Signature Hemoglobin A1C 9.1 (H) <=5.6 % 05/14/2021 [facility] 8:25 AM CDT [facility] Specimen Anatomical Collection Method / Collection Time Recei janie Time (Source) Location / Volume Laterality Blood Venipuncture / 05/13/2021 10:56 1 Unknown AM CDT 10:56 AM CDT [facility] - 05/14/2021 8:25 AM CDT For patients not previously diagnosed with diabetes: 5.7-6.4%: Increased risk for diabetes 6.5% and greater: Diagnostic for diabete s For patients diagnosed with diabetes: <8.0%: Goal of therapy for ages 18-75 Clinicians may recommend a higher or low er goal for specific individuals. Stanislaw Sultana MD LAB_1 Performing Organization Address City/State/ZIP Code Phon e Number [facility] [address] [address] documented in this encounter Visit Diagnoses Diagnosis Prediabetes - Primary Other abnormal glucose Moderate persistent asthma without compl ication (HRC) Unspecified asthma Major depressive disorder, recurrent epi sode with seasonal pattern (HRC) Anxiety disorder, unspecified type (HRC) Attention deficit hyperactivity disorder (ADHD), unspecified ADHD type (HRC) Insomnia, unspecified type Obesity (BMI 30-39.9) (HRC) Obesity, unspecified Abnormal weight gain Personal history of endocrine disorder Personal history of other endocrine, met abolic, and immunity disorders Snoring Other dyspnea and respiratory abnormalit y documented in this encounter Care Teams Warp Hand Relationship Specialty Start Date End Date Felipe Baum MD PCP - General Family Practice 07/16/19 [address] [place] [address] documented as of this encounter
--- OUTSIDE RECORDS SUMMARY | 2022-08-31 14:57 | XMS_ITS | Encounter Summary ---
:1970 Author Organization [facility] Address [address], [place] [address] Care Team Providers Name Role Phone Felipe Baum MD Primary Care Provider Encounter Details Date Type Department Care Team Description 05/13/2021 Lab Visit [facility] [id number] [facility] gain; [place] [address] Obesity (BMI 30-39.9); [phone] Personal histor y of endocrine disorder Social History Tobacco Use Types Packs/Day Years [...] 09/01/2022 Telemedicine [place] [address] [place], [place] [address] (Wo rk) documented as of this encounter Procedures Procedure Name Priority Date/Time Associated Diagnosis Comme nts VITAMIN B6 (8HR Routine 05/13/2021 10:56 AM Personal history o f Results for this FAST RECOMMENDED) CDT endocrine disorder proc edure are in the results section. VITAMIN B1, BLOOD Routine 05/13/2021 10:56 AM Personal history of Results for this CDT endocrine disorder procedure are in the results section. LIPID PANEL AND Routine 05/13/2021 10:56 AM Abnormal weight ga in Results for this DIRECT LDL(IF CDT procedure are in NEEDED) the results section. VITAMIN D Routine 05/13/2021 10:56 AM Obesity (BMI Results for this 25-HYDROXY, TOTAL CDT 30-39.9) procedure are in Abnormal weight gain the results Personal history of section. endocrine disorder HGB A1C Routine 05/13/2021 10:56 AM Prediabetes Results for this CDT Abnormal weight gain procedu re are in the results section. ALT (SGPT) Routine 05/13/2021 10:56 AM Abnormal weight gain Results for this CDT procedure are i n the results section. AST Routine 05/13/2021 10:56 AM Abnormal weight gain Results for this CDT procedure are i n the results section. documented in this encounter Results (ABNORMAL) Vitamin B1, Blood (05/13/2021 10:56 AM CDT) athologist Signature Vitamin B1 182 (H) 70 - 180 05/16/2021 [facility] nmol/L 4:14 PM CDT Comment: INTERPRETIVE INFORMATION: [...] and its performa nce characteristics determined by [facility]. It has not been cleared or approved by the [place] Food and Drug Adminis tration. This test was performed in a CLIA certified laboratory and is intended for clinical purposes. Performed By: [facility] [address] [place] [address] Asset Coordinator: Abby Francisco MD Specimen Anatomical Collection Method / Collection Time Recei janie Time (Source) Location / Volume Laterality Blood Venipuncture / 05/13/2021 10:56 Unknown AM CDT 10:56 AM CDT Stanislaw Sultana MD LAB_1 Performing Organization Address City/State/ZIP Code Phon e Number [facility] [address] [place] [address] [phone] Vitamin B6 (8Hr Fast Recommended) (05/13/2021 10:56 AM CDT) athologist Signature Vitamin B6 41.1 20.0 - 05/16/2021 [facility] 125.0 8:22 PM CDT nmol/L Comment: INTERPRETIVE INFORMATION: Vitamin B6 (Py ridoxal 5-Phosphate) Pyridoxal 5'-phosphate measured in a spe cimen collected following an 8-hour or overnight fast accurately i ndicates vitamin B6 nutritional status. Non-fasting specimen concentration reflects recent vitamin intake. This test was developed and its performa nce characteristics determined by [facility]. It has not been cleared or approved by the US Food and Drug Adminis tration. This test was performed in a CLIA certified laboratory and is intended for clinical purposes. Performed By: [facility] [address] [place] [address] Asset Coordinator: Abby Francisco MD Specimen Anatomical Collection Method / Collection Time Recei janie Time (Source) Location / Volume Laterality Blood Venipuncture / 05/13/2021 10:56 1 Unknown AM CDT 10:56 AM CDT Stanislaw Sultana MD LAB_1 Performing Organization Address City/[facility]/ZIP Code Phon e Number [facility] [address] [phone] Vitamin D 25-Hydroxy, Total (05/13/2021 10:56 AM CDT) athologist Signature Vitamin D, 34 30 - 80 05/13/2021 [facility] 25-OH, Total ng/mL 4:34 PM CDT LABORATORY Specimen Anatomical Collection Method / Collection Time Recei janie Time (Source) Location / Volume Laterality Blood Venipuncture / 05/13/2021 10:56 1 Unknown AM CDT 10:56 AM CDT Stanislaw Sultana MD LAB_1 Performing Organization Address City/State/ZIP Code Phon e Number [facility] [address] [place] [address] (ABNORMAL) Lipid Panel and Direct LDL(If Needed) (05/13/2021 10:56 AM CDT) [facility] Method Time Signature Cholesterol 163 0 - 199 05/14/2021 [facility] mg/dL 9:42 AM CDT LABORATORY Triglyceride 276 (H) <=149 05/14/2021 [facility] mg/dL 9:42 AM CDT LABORATORY HDL Cholesterol 35 (L) >=40 05/14/2021 [facility] mg/dL 9:42 AM CDT LABORATORY LDL, Calculated 73 <130 05/14/2021 [facility] mg/dL 9:42 AM CDT LABORATORY Non HDL Chol, 128 <=159 05/14/2021 [facility] Calculated mg/dL 9:42 AM CDT LABORATORY Cholesterol/HDL 4.7 05/14/2021 [facility] Ratio 9:42 AM CDT LABORATORY Hours Fasting 12 05/14/2021 [facility] 9:42 AM CDT Specimen Anatomical Collection Method / Collection Time Recei janie Time (Source) Location / Volume Laterality Blood Venipuncture / 05/13/2021 10:56 1 Unknown AM CDT 10:56 AM CDT Stanislaw Sultana MD LAB_1 Performing Organization Address City/[facility]/ZIP Code Phon e Number [facility] [address] [place], [place] [phone] [facility] [address] [place] [address], [facility] ALT (SGPT) (05/13/2021 10:56 AM CDT) P athologist Signature ALT (SGPT) 35 0 - 55 U/L 05/14/2021 [facility] 9:42 AM CDT LABORATORY Specimen Anatomical Collection Method / Collection Time Recei janie Time (Source) Location / Volume Laterality Blood Venipuncture / 05/13/2021 10:56 1 Unknown AM CDT 10:56 AM CDT Stanislaw Sultana MD LAB_1 Performing Organization Address [facility]/ZIP Code Phon e Number [facility] [address] [place] [address] AST (05/13/2021 10:56 AM CDT) P athologist Signature AST (SGOT) 27 10 - 40 U/L 05/14/2021 [facility] 9:42 AM CDT LABORATORY Specimen Anatomical Collection Method / Collection Time Recei janie Time (Source) Location / Volume Laterality Blood Venipuncture / 05/13/2021 10:56 1 Unknown AM CDT 10:56 AM CDT Stanislaw Sultana MD LAB_1 Performing Organization Address City/[facility]/ZIP Code Phon e Number [facility] [address] [place] [address] (ABNORMAL) Hgb A1c (05/13/2021 10:56 AM CDT) [facility] gist Method Time Signature Hemoglobin A1C 9.1 (H) <=5.6 % 05/14/2021 [facility] 8:25 AM CDT [facility] Specimen Anatomical Collection Method / Collection Time Recei janie Time (Source) Location / Volume Laterality Blood Venipuncture / 05/13/2021 10:56 Unknown AM CDT 10:56 AM CDT Narrative [facility] - 05/14/2021 8:25 AM CDT For patients not previously diagnosed with diabetes: 5.7-6.4%: Increased risk for diabetes 6.5% and greater: Diagnostic for diabete s For patients diagnosed with diabetes: <8.0%: Goal of therapy for ages 18-75 Clinicians may recommend a higher or low er goal for specific individuals. Stanislaw Sultana MD LAB_1 Performing Organization Address City/State/ZIP Code Phon e Number [facility] [address] [address] documented in this encounter Visit Diagnoses Diagnosis Prediabetes Other abnormal glucose Abnormal weight gain Obesity (BMI 30-39.9) (HRC) Obesity, unspecified Personal history of endocrine disorder Personal history of other endocrine, met abolic, and immunity disorders documented in this encounter Care Teams Breakfast Attendant Relationship Specialty Start Date End Date Felipe Baum MD PCP - General Family Practice 07/16/19 [address] [place] [address] documented as of this encounter
--- OUTSIDE RECORDS SUMMARY | 2022-08-31 14:57 | XMS_ITS | Encounter Summary ---
:1970 Author Organization [facility] Address [address], [place] [address] Care Team Providers Name Role Phone Felipe Baum MD Primary Care Provider Encounter Details Date Type Department Care Team Description 02/24/2020 [facility] Initial Department Provider, [facility] [address] MD 02/[address] [place], [place] provider [address] [address] [phone] [place] [address] Social History Tobacco Use Types Packs/Day Years [...] 09/01/2022 Telemedicine [place] [address] [place], [place] [address] (Wo rk) documented as of this encounter Visit Diagnoses Not on filedocumented in this encounter Care Teams Cabin Service Agent Relationship Specialty Start Date End Date Felipe Baum MD PCP - General Family Practice 07/16/19 [address] [place] [address] documented as of this encounter
--- OUTSIDE RECORDS SUMMARY | 2022-08-31 14:58 | XMS_ITS | Encounter Summary ---
:1970 Author Organization [facility] Address [address], [place] [address] Care Team Providers Name Role Phone Felipe Baum MD Primary Care Provider Reason for Referral Consult/Transfer Care (Routine) - Closed Specialty Diagnoses / Procedures Referred By Contact Refer red To Contact Diagnoses [place] [address] [place] [address] Referral ID Status Reason Start Date Expiration Date Visits Requ ested Visits Authorized [id number] Closed 10/03/2019 01/01/2021 1 1 Scheduling Instructions Your provider has recommended an appoint ment with [facility] (ENT) - Head & Neck Surgery. You may call to schedule your appointment. If you do not schedule an appointment within next 1 to 3 business days, we will call you to help arrange your appointment. We sug gest you call your health insurance company about your coverage and benefits for thi s appointment. ERCIAL APPRAISER Reason for Visit Reason Comments LARYNGITIS x1m Cough Encounter Details Date Type Department Care Team Description 10/03/2019 Office Visit Aroldo Catalan Felipe Baum, Laryng itis (Primary Dx); Medicine MD Mild persistent [place] [address] [address] [place] [address] Social History Tobacco Use Types Packs/Day Years [...] Sign Reading Time Taken Comments Blood Pressure 118/76 10/03/2019 8:46 AM COMMERCIAL APPRAISER Pulse 98 10/03/2019 8:46 AM COMMERCIAL APPRAISER Temperature 37.1 ??C (98.8 ??F) 10/03/2019 8:46 AM COMMERCIAL APPRAISER Respiratory Rate - - Oxygen Saturation 96% 10/03/2019 8:46 AM COMMERCIAL APPRAISER Inhaled Oxygen Concentration - - Weight - - Height - - Body Mass Index - - documented in this encounter Patient Instructions Patient InstructionsFelipe Baum MD - 10/03/2019 8:40 AM CST Images from the original note were not included. Laryngitis: Care Instructions Your Care Instructions Laryngitis is an inflammation of the voice box (larynx) that causes your voice to become raspy or hoarse. It can be short-lived or long-lasting. Most of the time, laryngitis comes on quickly and lasts as long as 2 weeks. It is caused by overuse, irritation, or infection of the vocal cords inside the larynx. Some of the most common causes are a cold, the flu, or allergies. Loud talking, shouting, cheering, or singing also can cause laryngitis. Stomach acid that backs up into the throat also can make you lose your voice. Resting your voice and taking other steps at home can help you get your voice back. Follow-up care is a ritter part of your treatment and safety. Be sure to make and go to all appointments, and call your doctor if you are having problems. It's also a good idea to know your test results and keep a list of the medicines you take. How can you care for yourself at home? ?? Follow your doctor's directions for treating the condition that caused you to lose your voice. Ifyour doctor prescribed antibiotics, take them as directed. Do not stop taking them just because you feel better. You need to take the full course of antibiotics. ?? Before you use cough and cold medicines, check the label. They may not be safe for young childrenor for people with certain health problems. ?? Try to keep stomach acid from backing up into your throat. Do not eat just before bedtime. Reducethe amount of coffee and alcohol you drink, and eat healthy foods. Taking emiv-jrx-cmxqfxc acid reducers can help when these steps are not enough. In some cases, you may need prescription medicine. ?? Rest your voice. You do not have to stop speaking, but use your voice as little as possible. Speak softly but do not whisper; whispering can bother your larynx more than speaking softly. Avoid talking on the telephone or trying to speak loudly. ?? Try not to clear your throat. This can cause more irritation of your larynx. Take an njpu-flv-woesxha cough suppressant (if your doctor recommends it) if you have a dry cough that does not produce mucus. ?? Do not smoke or allow others to smoke around you. If you need help quitting, talk to your doctor about stop-smoking programs and medicines. These can increase your chances of quitting for good. ?? Use a humidifier or vaporizer to add moisture to your bedroom. Humidity helps to thin the mucus in the nasal membranes that causes stuffiness or postnasal drip. Follow the directions for cleaning the machine. ?? Drink plenty of fluids, enough so that your urine is light yellow or clear like water. If you have kidney, heart, or liver disease and have to limit fluids, talk with your doctor before you increasethe amount of fluids you drink. ?? Use saline (saltwater) nasal washes to help keep your nasal passages open and wash out mucus and bacteria. You can buy saline nose drops at a grocery store or drugstore. Or, you can make your own athome by mixing ?? teaspoon salt, 1 cup water (at room temperature), and ?? teaspoon baking soda. If you make your own, fill a bulb syringe with the solution, insert the tip into your nostril, and squeeze gently. Blow your nose. When should you call for help? Call anytime you think you may need emergency care. For example, call if: ? You have trouble breathing. ?? Call your doctor now or seek immediate medical care if: ? You have new or worse pain. ? You have trouble swallowing. ??Watch closely for changes in your health, and be sure to contact your doctor if: ? You do not get better as expected. Where can you learn more? 1. Go to https://[employer]/healthlibrary or [employer]/epacube. 2. Enter A905 in the search box. Current as of: July 08, 2018 Content Version: 12.2 ?? [id number] [employer]. Care instructions adapted under license by your healthcare professional. If you have questions about a medical condition or this instruction, always ask your healthcare professional. [employer] disclaims any warranty or liability for your use of this information. ERCIAL APPRAISER documented in this encounter Progress Notes Felipe Baum MD - 10/03/2019 8:40 AM CST Subjective Chief Complaint Patient presents with ??? LARYNGITIS x1m ??? Cough Rajesh Caba is a 49 y.o. female who presents for evaluation of laryngitis. The patient states she has had laryngitis for the past month. She was treated with steroids and antibiotics about 2 weeks ago and did have some improvement while taking these medications, but her symptoms returned and have since worsened since she completed the course of medication. She continues to have a dry cough at night. She denies any symptoms of heartburn as well as any fevers or chills. She does not smoke. She otherwise has no other complaints or concerns at this time. Review of Systems A complete review of systems was negative except for above as mentioned in the HPI. Objective BP 118/76 (BP Location: Left Arm, BP Cuff Size: Large) Pulse 98 Temp 98.8 ??F (37.1 ??C) (Oral) SpO2 96% Physical Exam Constitutional: She is well-developed, well-nourished, and in no distress. HENT: Head: Normocephalic and atraumatic. Right Ear: External ear normal. Left Ear: External ear normal. Mouth/Throat: Oropharynx is clear and moist. No oropharyngeal exudate. Eyes: Pupils are equal, round, and reactive to light. Conjunctivae are normal. Cardiovascular: Normal rate, regular rhythm and normal heart sounds. Pulmonary/Chest: Effort normal and breath sounds normal. Lymphadenopathy: She has no cervical adenopathy. Neurological: She is alert. Skin: Skin is warm and dry. Psychiatric: Affect normal. Vitals reviewed. Assessment/Plan Rajesh was seen today for laryngitis and cough. Diagnoses and all orders for this visit: Laryngitis - predniSONE (DELTASONE) 20 MG tablet; Take 1 Tablet by mouth two times a day for 7 days, THEN 1 Tablet daily for 7 days. - Otolaryngology Consult Adult/Peds Mild persistent asthma without complication (HRC) Laryngitis - Given that this has been ongoing for >1 month now, I do feel that further evaluation by ENT is warranted to rule out other causes such as vocal cord nodules. - In the meantime, I will place her on an extended course of prednisone as above - Recommended voice rest and increasing fluid intake. - Discussed starting her on a PPI in case this is related to GERD, but she declined at this time. - Reinforced the need to rinse her mouth and/or drink a glass of water after her steroid inhaler use Asthma - ACT score is a little low today. She says this is due to the cold/URI symptoms she has been experiencing and prior to that her symptoms were well controlled - Will not make any changes to her medications today. Once she is feeling better, if her symptoms persist she should be re-evaluated and we could consider changes at that time. Felipe Baum MD 10/03/2019 ERCIAL APPRAISER documented in this encounter Plan of Treatment Upcoming Encounters Date Type Specialty Care Team Description 09/01/2022 [facility] [place] [address] [place], [place] [address] (Wo rk) Scheduled Referrals Name Type Priority Associated Diagnoses [facility] Consult Referral Routine Laryngitis Order ed: 10/03/2019 Adult/Peds documented as of this encounter Visit Diagnoses Diagnosis Laryngitis - Primary Acute laryngitis, without mention of obs truction Mild persistent asthma without complicat ion (HRC) Unspecified asthma documented in this encounter Care Teams Data Collection Specialist Relationship Specialty Start Date End Date Felipe Baum MD PCP - General Family Practice 07/16/19 [address] [place] [address] documented as of this encounter
--- OUTSIDE RECORDS SUMMARY | 2022-08-31 14:58 | XMS_ITS | Encounter Summary ---
:1970 Author Organization [facility] Address [address] [address] Care Team Providers Name Role Phone Felipe Baum MD Primary Care Provider Reason for Visit Reason Comments CONSULT Laryngitis Consult/Transfer Care (Routine) - Closed Specialty Diagnoses / Procedures Referred By Contact Refer red To Contact Diagn[place] [address] [place] [address] Referral ID Status Reason Start Date Expiration Date Visits Requ ested Visits Authorized [id number] Closed 10/03/2019 01/01/2021 1 1 Encounter Details Date Type Department Care Team Description 10/09/2019 Office Visit [place] [facility], Brandi, Rubén J, D ysphonia (Primary Dx); and Throat PA-C Candidiasdebora, oral; [address] Nasal polyp; [place] [address] Blvd Nasal septal perforation [phone] [place], [place] [address] (Wo rk) Social History Tobacco Use Types [...] place to sleep or slept in a group home (including now)? Sex Assigned at Date Recorded Female 04/30/2021 11:10 AM CDT documented as of this encounter Patient Instructions Patient InstructionsLarisa Faust RN - 10/09/2019 11:15 AM DIRECTOR TELECOMMUNICATIONS [facility] Locations: Nurse: Larisa/Pooja [phone] - [address] [facility] [address] Appointment [phone] [place] [address] [facility] [address] [employer]ICATION[employer] documented in this encounter Progress Notes Rubén Paz PA-C - 10/09/2019 11:15 AM CST SUBJECTIVE: Rajesh Caba is a 49 y.o. female that presents for evaluation of dysphonia. This began at the beginning of the month. She was treated for sinusitis with Augmentin and prednisone. She is still finishing the prednisone. At the initial onset she felt like she had razor blades in her throat. The pain has diminished but her voice quality is still very poor. Patient Active Problem List Diagnosis ??? Keratitis ??? Major depressive disorder, recurrent episode with seasonal pattern (HRC) ??? Anxiety disorder (HRC) ??? ADHD (attention deficit hyperactivity disorder) (HRC) ??? Polysubstance dependence (HRC) ??? Low back pain (HRC) ??? Radiculopathy ??? Insomnia ??? Encounter for long-term (current) use of medications ??? Asthma (HRC) ??? Prediabetes Outpatient Medications Prior to Visit Medication Sig Note Dispense Refill ??? ALBUterol 2.5 mg/3 mL, 0.083%, nebulizer solution Inhale 3 mLs by nebulization every 4 hours as needed for Wheezing. (3ml is 1 ampule). Pt will call for refill. 90 mL 3 ??? ALBUterol sulfate HFA 108 (90 Base) MCG/ACT inhaler Inhale 1-2 Puffs every 4 hours as needed forWheezing. Pharmacy may substitute albuterol HFA inhalers based on insurance 1 Inhaler 0 ??? ALPRAZolam (XANAX) 0.5 MG tablet TAKE ONE TABLET BY MOUTH DAILY NEEDED FOR ANXIETY. -- Appt: Due February 2020 30 Tablet 4 ??? ARIPiprazole (ABILIFY) 10 MG tablet Take 1 Tablet by mouth daily. Next appt due Aug 2019 90 Tablet 1 ??? budesonide-formoterol (SYMBICORT) 160-4.5 MCG/ACT inhaler Inhale 2 Puffs two times a day. 1 Inhaler 11 ??? DULoxetine (CYMBALTA) 30 MG capsule 30mg daily x 1 week then 60mg daily ongoing 60 Capsule 5 ??? [START ON 10/11/2019] methylphenidate (RITALIN) 20 MG tablet Take 1 Tablet by mouth three times aday. May fill on or after 10/11/19 90 Tablet 0 ??? PARoxetine (PAXIL) 40 MG tablet Take 0.5 Tablets by mouth daily for 14 days. 30 Tablet 0 ??? predniSONE (DELTASONE) 20 MG tablet Take 1 Tablet by mouth two times a day for 7 days, THEN 1 Tablet daily for 7 days. 21 Tablet 0 ??? Vitamins/Minerals Take 1 Tab by mouth. 01/30/2018: Received from: Emilie Thapa Sig: Take 1 tablet by mouth daily ??? zolpidem (AMBIEN) 10 MG tablet Take 1 Tablet by mouth at bedtime as needed. Refills must last 30days 30 Tablet 5 No facility-administered medications prior to visit. No Known Allergies OBJECTIVE: GENERAL APPEARANCE: Pleasant, cooperative, no distress. HEAD AND FACE: Facies symmetric, no obvious lesions. CRANIAL NERVES: Grossly intact and symmetric. EARS: External ears normal. Normal, patent ear canals bilaterally. TM and middle ear spaces normal. NOSE: External pyramid midline. Noted to have a large septal perforation. Denies any trauma or history of surgery. She states that she used cocaine heavily at age 19. Noted to have a lot of thick purulence and white appearing secretions in the nasal cavity bilaterally. Also noted to have a small nasalpolyp on the left. ORAL CAVITY/OROPHARYNX: No mucosal lesions, masses, or pharyngeal asymmetry. NECK: No cervical adenopathy. No palpable thyroid or salivary gland masses. THYROID: No significant thyroid abnormality by palpation. PAROTIDS: Normal to palpation. No mass, lesions or evidence of obstruction. FLEXIBLE FIBEROPTIC EXAM: A flexible fiberoptic exam was performed of the hypopharynx and larynx following topical nasal decongestion and anesthetic using phenylephrine and lidocaine. She again had a lot of thick secretions in the nasal cavities. No other polyps than the single polyp on a left side. Na sopharynx showed similar findings. Hypopharynx shows that both vocal folds are mobile. The entire hypopharynx is covered in Neeru. IMPRESSION: Dysphonia Hypopharyngeal and probably nasal candidiasis Nasal polyp, left Large nasal septal perforation PLAN: Nystatin suspension swish and swallow 4 times daily for two weeks with one refill. I also gave her Diflucan 150 mg to take now and another in 48 hours. Return in two weeks for recheck. Dictation was performed using voice recognition software. There may be errors in the dictation secondary to voice recognition anomalies. [employer]OR TELECOMMUNICATIONS documented in this encounter Plan of Treatment Upcoming Encounters Date Type Specialty Care Team Description 09/01/2022 Telemedicine [place] [address] [place], [place] [address] (Wo rk) documented as of this encounter Visit Diagnoses Diagnosis Dysphonia - Primary Candidiases, oral Nasal polyp Unspecified nasal polyp Nasal septal perforation Other diseases of nasal cavity and sinus es documented in this encounter Care Teams Produce Associate Relationship Specialty Start Date End Date Felipe Baum MD PCP - General Family Practice 07/16/19 [address] [place] [address] documented as of this encounter
--- OUTSIDE RECORDS SUMMARY | 2022-08-31 14:58 | XMS_ITS | Encounter Summary ---
:1970 Author Organization [facility] Address [address] [address] Care Team Providers Name Role Phone Padma Srinivasan MD Primary Care Provider Encounter Details Date Type Department Care Team Description 02/06/2017 Lab Visit [facility] 3850 Encounter for long-term Laboratory (current) use of [address] [place] [address] Social History Tobacco Use Types Packs/Day Years Used Date Smoking Tobacco: Never Alcohol Use Standard Drinks/Week Comments Yes 0 (1 standard drink = 0.6 oz pure alcoho l) 1 every 4-6 months Alcohol Habits Answer Date Recorded How often [...] 09/01/2022 Telemedicine [place] [address] [place] [phone] (Wo rk) documented as of this encounter Procedures Procedure Name Priority Date/Time Associated Diagnosis Comme nts LIPID PANEL AND Routine 02/06/2017 10:03 AM Encounter for Resu lts for this DIRECT LDL(IF CDT long-term (current) procedu re are in NEEDED) use of medications the resul ts section. HGB A1C Routine 02/06/2017 10:03 AM Encounter for Results for this CDT long-term (current) procedur e are in use of medications [facility] ts section. documented in this encounter Results Lipid Panel and Direct LDL(If Needed) - today (02/06/2017 10:03 AM CDT) Analysis Performed At Patho logist Time Signature Cholesterol 157 0 - 199 PN SOFT mg/dL Triglycerides 78 4 - 149 PN SOFT mg/dL HDL Cholesterol 47 >39 mg/dL PN SOFT Cholesterol/HDL 3.3 PN SOFT Ratio Screen LDL Calculated 94 19 - 130 PN SOFT mg/dL Length Of Fast 12.0 PN SOFT Specimen Anatomical Collection Method Collection Time Receive d Time (Source) Location / / Volume Laterality 02/06/2017 10:03 02/06/2017 AM CDT 10:03 AM CDT Narrative PN SOFT - 02/06/2017 11:00 AM CDT Performed at [facility], [address] [place] [address] CLIA number [id number] Edie Rich MD LAB_1 Performing Organization Address [facility] Phon e Number PN SOFT [address] [place] [address] Hgb A1C - today (02/06/2017 10:03 AM CDT) P athologist Signature HGB A1C 5.2 4.0 - 5.6 % PN SOFT Specimen Anatomical Collection Method Collection Time Receive d Time (Source) Location / / Volume Laterality 02/06/2017 10:03 02/06/2017 AM CDT 11:14 AM CDT Narrative PN SOFT - 02/06/2017 1:23 PM CDT Performed at [facility], [address] [place] [address] CLIA number [id number] Edie Rich MD LAB_1 Performing Organization Address [facility] Phon e Number PN SOFT [address] [place] [address] documented in this encounter Visit Diagnoses Diagnosis Encounter for long-term (current) use of medications Encounter for long-term (current) use of other medications documented in this encounter Care Teams Car Seat Maker Relationship Specialty Start Date End Date Padma Srinivasan MD PCP - General 01/06/16 07/15/19 [address] [place] [address] documented as of this encounter
--- OUTSIDE RECORDS SUMMARY | 2022-08-31 14:58 | XMS_ITS | Encounter Summary ---
:1970 Author Organization [facility] Address [address] [place] [address] Care Team Providers Name Role Phone Felipe Baum MD Primary Care Provider Reason for Visit Reason Comments Nebulizer Encounter Details Date Type Department Care Team Description 01/03/2020 Telephone [facility] iciFelipe Dickson MD Nebulizer [address] [facility]. [address] [place] [address] [place], [place] [phone] (Wo rk) Social History Tobacco Use Types [...] documented as of this encounter Nursing Notes Payton Mcwilliams LPN - 01/03/2020 6:16 PM CDT Called pt with below. Iftikhar Lee MD - 01/03/2020 6:11 PM CDT Please let patient know: Script for nebulizer was sent Pooja Lopez RN - 01/03/2020 1:35 PM CDT Clinician Action: New Order nebulizer machine Clinician Next Step: Review associated dx/order for accuracy and sign pended orders, if appropriate and Close encounter Specific Request(s): 1. RX a nebulizer machine (pharmacy calling to request). [facility] [place], fax [phone]. Chet Castaneda - 01/03/2020 1:27 PM CDT Medications - Pharmacy Calls Is your question or concern about a Prior Authorization? No. What is the question or concern? Pharmacy is calling about the nebulizer machine, wants to know about the perscription. Hasn't heard anything from us. Transfer to triage What is the name and dose of the medication? NA Who prescribed it? (include first & last name) Felipe Baum MD Please route to: Triage Pool (If patient is waiting, route as high priority) documented in this encounter Plan of Treatment Upcoming Encounters Date Type Specialty Care Team Description 09/01/2022 Telemedicine [place] [address] [place], [place] [address] (Wo rk) documented as of this encounter Visit Diagnoses Not on filedocumented in this encounter Care Teams Tissue Packer Relationship Specialty Start Date End Date Felipe Baum MD PCP - General Family Practice 07/16/19 [address] [place] [address] documented as of this encounter
--- OUTSIDE RECORDS SUMMARY | 2022-08-31 14:58 | XMS_ITS | Encounter Summary ---
:1970 Author Organization [facility] Address [address], [place] [address] Care Team Providers Name Role Phone Padma Srinivasan MD Primary Care Provider Reason for Visit Procedure/Equipment (Routine) - Incomplete Specialty Diagnoses / Procedures Referred By Contact Refer red To Contact Diagnoses Left shoulder pain, unspecified chronicity Paula Kaplan, PA-[place] [address] [place] [address] Referral ID Status Reason Start Date Expiration Date Visits V isits Requested Authorized [id number] Incomplete 06/13/2016 09/12/2017 1 1 Encounter Details Date Type Department Care Team Description 06/16/2016 Imaging [facility] Paula Kaplan, Lef t shoulder pain, MRI PA-C unspecified chronicity [address] [place] [address] [place] [address] [phone] (Wo rk) Social History Tobacco Use Types [...] 09/01/2022 Telemedicine [place] [address] [place], [place] [address] (Wo rk) documented as of this encounter Procedures Procedure Name Priority Date/Time Associated Diagnosis Comme nts MR POST ARTHROGRAM Routine 06/16/2016 3:52 PM Left shoulder pa in, Results for this SHOULDER LT CDT unspecified procedure are i n chronicity the results section. documented in this encounter Results MR Post Arthrogram Shoulder Lt (06/16/2016 3:52 PM CDT) Anatomical Region Laterality Modality Shoulder, Skeletal, Arm, Upper Extremity, Other Magnetic Resonance Specimen (Source) Anatomical Collection Method Collection Time Re ceived Time Location / / Volume Laterality 06/16/2016 3:16 PM CDT Impressions 06/16/2016 4:02 PM CDT IMPRESSION: ?? 1. No rotator cuff tear identified. Mild tendinopathy of the distal supraspinatus. 2. Degenerative arthritic change acromio clavicular joint. 3. Some mild fraying undersurface of the mid superior labrum. Narrative 06/16/2016 4:02 PM CDT COMPARISON: ??Correlation made with x-rays 06/13/2016. TECHNIQUE: ??Routine MR arthrogram phillip col of the left shoulder was performed following the intraarticular injection of 10 mL of saline containing a 1:400 dilution of Gadavist. FINDINGS: ?? CORACOACROMIAL ARCH/AC JOINT: ??Degenera tive arthritic changes at the acromioclavicular joint including focus of subchondral cystic change with some mild marrow edema at the distal clavicle. Type 2 acro mion. There is no significant thickening of the coracoacromial or coracohumeral ligaments. There is no significant narrowing of the subacromial outlet or coracohumeral distance. ROTATOR CUFF: ??Mild tendinopathy the di stal supraspinatus tendon proximal insertion. Remainder of the supraspinatus, infraspinatus and teres minor tendons are intact. Some increased signal within the s ubscapularis muscle may largely be iatro genic secondary to injection given appearance. Subscapularis otherwise intact. There is no atrophy of the rotator cuff muscles. SUBACROMIAL/SUBDELTOID BURSA: ??Small am ount of increased signal may reflect slight bursitis. GLENOHUMERAL JOINT: ??There is no signif icant degenerative arthritis or focal cartilage defect. No osteocartilaginous bodies are identified. There is no gadolinium outside of the glenohumeral joint. LONG HEAD OF THE BICEPS TENDON/GLENOID L ABRUM: ??The intra and extraarticular portions of the long head of the biceps tendon are normal. The biceps-labral anchor is intact. 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 Small amount of signal the undersurface of the mid superior labrum posterior the biceps labral anchor at the chondral labral torrey ction series 7 slice 9 may reflect some mild fraying. Labrum elsewhere intact. MARROW AND SOFT TISSUES: ??Amount of cys tic type signal posterior superior aspect of the humeral head. Degenerative changes at the acromial clavicular joint as mentioned above. Marrow signal elsewhere unremarkable. No soft tissue mass identified. Procedure Note Jay Rod MD - 06/16/2016Formatt ing of this note might be different from the original. COMPARISON: Correlation made with x-rays 06/13/2016. TECHNIQUE: Routine MR arthrogram protoco l of the left shoulder was performed following the intraarticular injection of 10 mL of saline containing a 1:400 dilution of Gadavist. FINDINGS: CORACOACROMIAL ARCH/AC JOINT: Degenerati ve arthritic changes at the acromioclavicular joint including focus of subchondral cystic change with some mild marrow edema at the distal clavicle. Type 2 acromion. There is no significant thickening of the coracoa cromial or coracohumeral ligaments. There is no significant narrowing of the subacromial outlet or coracohumeral distance. ROTATOR CUFF: Mild tendinopathy the dist al supraspinatus tendon proximal insertion. Remainder of the supraspinatus, infraspinatus and teres minor tendons are intact. Some increased signal within the subscapularis muscle may largely be iatrogenic secondary to i njection given appearance. Subscapularis otherwise intact. There is no atrophy of the rotator cuff muscles. SUBACROMIAL/SUBDELTOID BURSA: Small amou nt of increased signal may reflect slight bursitis. GLENOHUMERAL JOINT: There is no signific ant degenerative arthritis or focal cartilage defect. No osteocartilaginous bodies are identified. There is no gadolinium outside of the glenohumeral joint. LONG HEAD OF THE BICEPS TENDON/GLENOID L ABRUM: The intra and extraarticular portions of the long head of the biceps tendon are normal. The biceps-labral anchor is intact. 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 Small amount of signal the undersurface of the mid superior labrum posterior the biceps labral anchor at the chondral labral junction series 7 slice 9 may reflect some mild fraying. Labrum elsewh ere intact. MARROW AND SOFT TISSUES: Amount of cysti c type signal posterior superior aspect of the humeral head. Degenerative changes at the acromial clavicular joint as mentioned above. Marrow signal elsewhere unremarkable. No soft tissue mass identified. IMPRESSION IMPRESSION: 1. No rotator cuff tear identified. Mild tendinopathy of the distal supraspinatus. 2. Degenerative arthritic change acromio clavicular joint. 3. Some mild fraying undersurface of the mid superior labrum. Paula Kaplan PA-C RAD MRI documented in this encounter Visit Diagnoses Diagnosis Left shoulder pain, unspecified chronici ty documented in this encounter Care Teams Tilesetter Relationship Specialty Start Date End Date Padma Srinivasan MD PCP - General 01/06/16 07/15/19 [address] [place] [address] documented as of this encounter
--- OUTSIDE RECORDS SUMMARY | 2022-08-31 14:58 | XMS_ITS | Encounter Summary ---
:1970 Author Organization [facility] Address [address] [address] Care Team Providers Name Role Phone Padma Srinivasan MD Primary Care Provider Reason for Visit Procedure/Equipment (Routine) - Incomplete Specialty Diagnoses / Procedures Referred By Contact Refer red To Contact Diagnoses Left shoulder pain, unspecified chronicity Paula Kaplan PA-C Procedures XR Shoulder Lt 2+ Views [id number] [facility] [place] [address] Referral ID Status Reason Start Date Expiration Date Visits V isits Requested Authorized [id number] Incomplete 06/13/2016 09/12/2017 1 1 Encounter Details Date Type Department Care Team Description 06/13/2016 Imaging [facility] Paula Kaplan, Left shoulder pain, [address] [place] [address] [address]ta [phone] [place], [place] [address] (Wo rk) Social History Tobacco Use Types [...] 09/01/2022 Telemedicine [place] [address] [place], [place] [address] (Wo rk) documented as of this encounter Procedures Procedure Name Priority Date/Time Associated Diagnosis Comme nts XR SHOULDER LT 2+ Routine 06/13/2016 10:52 AM Left shoulder pa in, Results for this VIEWS CDT unspecified procedure are i n chronicity the results section. documented in this encounter Results XR Shoulder Lt 2+ Views (06/13/2016 10:52 AM CDT) Anatomical Region Laterality Modality Upper Extremity, Shoulder Computed Radio graphy Specimen (Source) Anatomical Collection Method Collection Time Re ceived Time Location / / Volume Laterality 06/13/2016 10:36 AM CDT Narrative 06/13/2016 10:56 AM CDT COMPARISON: ??None. FINDINGS: ??Left shoulder articulations appear intact. Moderate degenerative changes involve the left AC joint. Procedure Note Regis Tejada MD - 06/13/2016Formatti ng of this note might be different from the original. COMPARISON: None. FINDINGS: Left shoulder articulations ap pear intact. Moderate degenerative changes involve the left AC joint. Paula [place] GD documented in this encounter Visit Diagnoses Diagnosis Left shoulder pain, unspecified chronici ty documented in this encounter Care Teams Surveillance Observer Relationship Specialty Start Date End Date Padma Srinivasan MD PCP - General 01/06/16 07/15/19 [address] [place] [address] documented as of this encounter
--- OUTSIDE RECORDS SUMMARY | 2022-08-31 14:58 | XMS_ITS | Encounter Summary ---
:1970 Author Organization [facility] Address [address] [address] Care Team Providers Name Role Phone Padma Srinivasan MD Primary Care Provider Reason for Referral Procedure/Equipment (Routine) - Incomplete Specialty Diagnoses / Procedures Referred By Contact Refer red To Contact Diagnoses Chronic bilateral low back pain with bilateral sciatica (HRC) Myofascial pain Juan David Masters, Procedures MR Lumbar Spine WO IV Cont CODY KWAN [address] [place], [place] [address] Referral ID Status Reason Start Date Expiration Date Visits V isits Requested Authorized [id number] Incomplete 06/21/2016 12/18/2016 1 1 onsult/Transfer Care (Routine) - Closed Specialty Diagnoses / Procedures Referred By Contact Refer red To Contact Diagnoses Chronic bilateral low back pain with bilateral sciatica (HRC) Myofascial pain Juan David Masters, AQUILES, TRUST MANAGER [address] [place], [place] [address] Referral ID Status Reason Start Date Expiration Date Visits Requ ested Visits Authorized [id number] Closed 06/21/2016 09/20/2017 1 1 Scheduling Instructions Your physician has recommended that you make an appointment with [facility], a member of the [facility]. To schedule your appointment, please call [phone]. [facility] is a part icipating provider for most insurance plans. For details about your specific benefit coverage, please call the member services phone number on the back of your insuran ce card. Reason for Visit Reason Comments Back Pain Encounter Details Date Type Department Care Team Description 06/21/2016 Initial Consult Alka Masters, Chronic bila teral low back pain with bilateral sciatica (Primary Dx); Rehabilitative Medic ine Juan David Grijalva APRN, Myofascial pain; [address] TRUST MANAGER Chronic narcotic use [place], [place] [id number] [address] [phone] [place], [place] [id number] Social History Tobacco Use Types Packs/Day Years [...] Sign Reading Time Taken Comments Blood Pressure 98/69 06/21/2016 10:00 AM CDT Pulse 101 06/21/2016 10:00 AM CDT Temperature - - Respiratory Rate - - Oxygen Saturation - - Inhaled Oxygen Concentration - - Weight 93 kg (205 lb) 06/21/2016 10:00 AM CDT Height 183 cm (6' 0.05) 06/21/2016 10:00 AM CDT Body Mass Index 27.77 06/21/2016 10:00 AM CDT documented in this encounter Patient Instructions Patient InstructionsChJuan David tello APRN, TRUST MANAGER - 06/21/2016 10:27 AM CDT 1. Schedule lumbar MRI. If MyChart is active will release it there otherwise will call with results.If you would like to review the results in person may schedule follow up 3 days or longer after MRI. 2. Schedule with [facility] for the MedX program 3. Follow up when finished with the MedX program If you have any questions or concerns please call my nurse. For PM&R and Chiropractic Services, Call [phone] ? ? Option 1 for scheduling (then 1-PT, 2-Chiro, 3-PM&R) ??? Option 2 to speak with a nurse or er medical technician ??? Option 3 for directions and fax MedX Program The MedX program is a rehabilitation program for people with neck and low back pain that emphasizes intensive spine strengthening, improved quality of life and patient education. Goals of the program include increasing core muscle stability and trunk strength as well as proving function with activities of daily living including household, leisure and work activities. Treatment professionals include physicians, physical therapists and occupational therapists. Commonly treated diagnoses include neck or back pain, degenerative disc disease, arthritis, post surgical back pain. The program starts with an initial evaluation and an individualized treatment plan is prepared. Program components include general strengthening done with free weights and machines, cardiovascular conditioning and intensive core stabilization and spine strengthening. Specialized equipment is used to analyze spine strength and to exercise the spine muscles. Functional education includes ergonomics training, job simulation activities, posture and body mechanics training, activity of daily living and self-care training to improve quality of life. The typical time frame for treatment is one to 2 times a week for 8 to 12 weeks with reevaluation once every 4 weeks. You will be given a home exercise program to maintain goals achieved at discharge from the program. documented in this encounter Progress Notes Juan David Masters APRN, CNP - 06/21/2016 10:30 AM CDT PHYSICAL MEDICINE AND REHABILITATION NEW CONSULT Chief Complaint: Chief Complaint Patient presents with ??? Back Pain Date: 06/21/2016 Referred by: Self-Referral, Patient, [place] [address] History of Present Illness: The patient is a 45 y.o. female who is here for the above concerns. She has had low back pain for many years. No specific injury when this started. The main pain is across low back but then she occasionally gets pain into the anterior and lateral thighs with some numbness and tingling in the bottom ofboth feet. Most recently she has been treated at [facility] pain clinic. She tells me she did physical therapy several years ago and has continued with some of her home exercises. They have also treated with several injections but those were not helpful. Currently taking Percocet 3-4 per day. Comes in today when I look in any potential alternative treatments for his medications do not seem to be all that effective. She is also try to pass gabapentin, Lyrica, amitriptyline. She does have history of depression and anxiety does see a psychiatrist for this. She rates her pain at 8 out of 10. It is constant but variable in intensity. He can be burning, sharp/stabbing. It is getting worse. Sitting, standing, lifting, bending, twisting, coughing, sneezing, housework, running make the pain worse. Ice, medications can provide a little relief. No weakness in the legs. No bowel or bladder incontinence. She tells me she had an MRI done about 5 years ago that showed some disc bulging at the L2-L3 level. Nofamily history spine issues. No personal history of cancer. 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 Review of Systems: Associated with today's visit and concerns, the patient denies any constitutional symptoms such as fever, chills, shortness of breath, nausea, vomiting, abdominal pain, chest pain, headache, or blurry vision. The patient denies any unexplainable weight loss or weight gain. Otherwise, complete review of systems was negative. PAST MEDICAL HISTORY: Past Medical History Diagnosis Date ??? Depression (HRC) ??? Anxiety (HRC) ??? Major depressive disorder, recurrent episode, moderate (HRC) 11/30/2011 ??? Anxiety disorder NOS 11/30/2011 ??? ADHD (attention deficit hyperactivity disorder) (HRC) 11/30/2011 ??? Polysubstance dependence, in full and sustained remission 11/30/2011 ??? Low back pain (HRC) 11/30/2011 ??? Radiculopathy, L3 11/30/2011 ??? Insomnia, unspecified 08/02/2013 Patient Active Problem List Diagnosis ??? Keratitis ??? Major depressive disorder, recurrent episode with seasonal pattern (HRC) ??? Anxiety disorder (HRC) ??? ADHD (attention deficit hyperactivity disorder) (HRC) ??? Polysubstance dependence (HRC) ??? Low back pain (HRC) ??? Radiculopathy ??? Insomnia Past Surgical History: Past Surgical History Procedure Laterality Date ??? Hernia repair 1975 ??? Hx appendectomy 1984 ??? Lung surgery 1989 Spontaneous , treated with scarring therapy Medications: Outpatient Prescriptions Prior to Visit Medication Sig Dispense Refill ??? ALBUterol 2.5 mg/3 mL, 0.083%, nebulizer solution Inhale 3 mLs by nebulization every 4 hours as needed for Wheezing. (3ml is 1 ampule). Pt will call for refill. 90 mL 3 ??? ALBUTEROL SULFATE HFA IN Indications: PN: WICHO SIMON [facility] February 05, 2015 9:56 AM Received from: External Pharmacy 0 ??? ALPRAZolam (AKA XANAX) 0.5 MG tablet Take 1 tablet by mouth daily as needed. each refill must last 30 days - no early refills 30 tablet 5 ??? ARIPiprazole (AKA ABILIFY) 10 MG tablet Take 1 tablet by mouth daily (every 24 hours). 30 tablet5 ??? buPROPion (WELLBUTRINSR) 200 MG 12 hour release tablet Take 1 tablet by mouth 2 times daily. 60 tablet 2 ??? clonazePAM (KLONOPIN) 2 MG tablet Take 1 Tab by mouth at bedtime as needed for Anxiety or Other (sleep). Fax to: [phone]. Next appt 05/31/16. May fill ON or AFTER 05/29/16 30 Tab 0 ??? DIAZEpam (VALIUM) 10 MG tablet Take 1 tablet by mouth one time 30 minutes prior to procedure, Bring with you to procedure 1 Tab 0 ??? diclofenac (VOLTAREN) 1 % gel Indications: PN: WICHO SIMON [facility] February 05, 2015 9:56 AM Received from: External Pharmacy ??? methylphenidate (RITALIN) 20 MG tablet Take 1 Tab by mouth three times a day. Mail Home. Next appt 06/30/16 90 Tab 0 ??? oxyCODONE-Acetaminophen (PERCOCET) 10-325 MG tablet Indications: PN: WICHO SIMON [facility] February 05, 2015 9:56 AM Received from: External Pharmacy ??? zolpidem (AKA AMBIEN) 10 MG tablet Take 0.5-1 tablets by mouth at bedtime as needed for Sleep. 30 tablet 5 No facility-administered medications prior to visit. Allergies: No Known Allergies Family History: Family History Problem Relation Age of Onset ??? Anesthesia Reaction Negative Family History ??? Broken Bones Negative Family History ??? Clotting Disorder Negative Family History ??? Heart Disease Negative Family History ??? Osteoporosis Negative Family History ??? Rheumatologic Disease Negative Family History ??? Cancer, Breast Negative Family History ??? Cancer, Ovary Maternal Aunt ??? Diabetes Father Retinopathy, Neuropathy ??? Stroke Father ??? Kidney/Bladder Disease Father Kidney transplant, 2/2 cancer ??? Brain Aneurysm Father ??? Cancer Father Colon Cancer Social History: Social History Social History ??? Marital Status: Spouse Name: N/A ??? Number of Children: N/A ??? Years of Education: N/A Occupational History ??? 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 Smoking status: Never Smoker ??? Smokeless tobacco: Not on file ??? Alcohol Use: Yes Comment: 1 every 4-6 months ??? Drug Use: No ??? Sexual Activity: Partners: Male Control/ Protection: Injection Comment: Depo Other Topics Concern ??? Bike Helmet No ??? [place] Yes ??? Exercise No ??? Guns In Home No ??? Seat Belt Yes ??? Special Diet No ??? Weight Concern No Social History Narrative Physical Examination: Vitals: Filed Vitals: 06/21/16 1000 BP: 98/69 Pulse: 101 Weight: 92.987 kg (205 lb) General/Constitutional: Well-developed, well-nourished individual in no acute distress. Mental Status: Appropriate mood, grossly oriented with coherent speech and thought processing. Neurologic: Cranial nerves: Grossly intact bilaterally Gait/gross motor: Gait reveals normal po and stride. Toe- and heel-walking are normal. Strength: All major muscles groups of the bilateral lower extremities have normal and symmetric muscles strength, bulk, and tone. Reflexes: bilateral lower extremity muscle stretch reflexes are physiologic and symmetric. Negative Babinski. Sensation: Normal light touch sensation throughout the bilateral lower extremities. SLR: Straight leg raise is negative for radicular pain or paresthesias bilaterally. Musculoskeletal: Spine. Normal range of motion Lumbar and Lumbosacral. No gross axial skeletal deformities. Palpation: Palpation of the Lumbar and Lumbosacral spine demonstrates tenderness midline lumbar spine, bilateral lumbar paraspinals, bilateral SI joints. Joint ROM: Lumbar: Facetogenic maneuvers are positive for axial back pain Hip: Negative MARY, Stinchfield's tests. No pain with internal, external rotation. Knee: No knee effusions. No patellar facet or tendon tenderness. Skin: Skin inspection of the Lumbar and Lumbosacral spine was grossly negative for any concerning lesions. Lymphatic: No lymphedema is appreciated in the lower extremities. Cardiovascular: Pedal pulses are intact. Respiratory: Breathing is comfortable and regular. No tachypnea. Abdomen: Non distended Imaging: None Assessment : ICD-10-CM 1. Chronic bilateral low back pain with bilateral sciatica M54.42 [facility] M54.41 MR Lumbar Spine WO IV Cont G89.29 2. Myofascial pain M79.1 [facility] MR Lumbar Spine WO IV Cont 3. Chronic narcotic use F11.90 Plan: Continues to have chronic low back pain which is currently being managed through [facility] pain clinic. Comes in today looking for alternative treatments to what she has been doing particular medications. We did review the medications that she has tried and she is currently on and I would not have any additional medications to offer her at this time. We did discuss other treatments which include acupuncture, MedX program. She is very interested for the MedX program to referral [facility] was made. Since it has been 5 years since her last MRI we will go ahead and update of herlumbar MRI. I did call her with the results or if she would like she can schedule follow-up with me a couple days after the MRI and we can review in clinic. She does request an open sided MRI to referral to [facility] was made. 1. Lumbar MRI 2. [facility] I will follow up with the patient in 8-12 weeks. If not improved, we can discuss other options, including acupuncture, trigger point injections. The patient understands that if symptoms change or worsen to call for an earlier appointment. This plan was discussed with the patient and she is in agreement with this plan. The patient has no further questions or concerns. Patient Education: Discussed the anatomy of the spine and used a model to discuss where the pathology is and the pathophysiology of why the patient is having this back pain. Also discussed the signs and symptoms of emergent spine symptoms (loss of feeling, sensation, and bowel and bladder incontinence). The patient understands and will call 911 if this occurs. I spent a total of 25 minutes with the patient. 18 minutes were spent in contact time counseling thepatient for recommendations and options of treatment. Please see above discussion. Juan David Masters CNP [facility] This note was created using voice recognition software and may contain typographical errors. documented in this encounter Plan of Treatment Upcoming Encounters Date Type Specialty Care Team Description 09/01/2022 Telemedicine [place] [address] [place], [place] [address] (Wo rk) Scheduled Referrals Name Type Priority Associated Diagnoses Order S chedule [facility] Referral Routine Chronic bilatera l low Ordered: 06/21/2016 back pain with bilateral sciati ca Myofascial pain documented as of this encounter Visit Diagnoses Diagnosis Chronic bilateral low back pain with ami ateral sciatica (HRC) - Primary Myofascial pain Mylagia and myositis, unspecified Chronic narcotic use documented in this encounter Care Teams Orthodontic Laboratory Technician Relationship Specialty Start Date End Date Padma Srinivasan MD PCP - General 01/06/16 07/15/19 [address] [place] [address] documented as of this encounter
--- OUTSIDE RECORDS SUMMARY | 2022-08-31 14:58 | XMS_ITS | Encounter Summary ---
:1970 Author Organization [facility] Address [address], [place] [address] Care Team Providers Name Role Phone Padma Srinivasan MD Primary Care Provider Reason for Visit Reason Onset Date Comments RESULTS, TEST 07/05/2016 Encounter Details Date Type Department Care Team Description 07/05/2016 Telephone [facility] [address] Juan David Masters, RESULTS, TEST Rehabilitative Medic ine RECORDER HELPER SEISMOGRAPH, BOAT CANVAS INSTALLER [address] [place] [address] [address] [phone] [place] [address] (Wo rk) Social History Tobacco Use Types [...] documented as of this encounter Nursing Notes Juan David Masters APRN, CNP - 07/05/2016 1:03 PM CDT Called and spoke with Ms. Caba. Reviewed MRI results with her. She will be starting the MedX program next week. Follow up when done with that. Saskia Fish LPN - 07/05/2016 11:22 AM CDT MRI done at [facility], results printed and put on Juan David's desk in [place]. Juan David Masters APRN, CNP - 07/05/2016 11:02 AM CDT I do not have any MRI results. Did she have this done outside [facility]? Saskia Fish LPN - 07/05/2016 10:35 AM CDT Patient would like to be called with MRI results from 06/21/2016 MRI. Please advise. documented in this encounter Plan of Treatment Upcoming Encounters Date Type Specialty Care Team Description 09/01/2022 Telemedicine [place] [address] [place], [place] [address] (Wo rk) documented as of this encounter Visit Diagnoses Not on filedocumented in this encounter Care Teams Cook Helper Preserves Relationship Specialty Start Date End Date Padma Srinivasan MD PCP - General 01/06/16 07/15/19 [address] [place], [place] [id number] documented as of this encounter
--- OUTSIDE RECORDS SUMMARY | 2022-08-31 14:58 | XMS_ITS | Encounter Summary ---
:1970 Author Organization [email or web address] Address [address], [place] [address] Care Team Providers Name Role Phone Padma Srinivasan MD Primary Care Provider Reason for Visit Reason Comments Test Results Encounter Details Date Type Department Care Team Description 02/26/2018 Telephone [facility] [address] Erendira Soliman MD Test Results Medicine [address] [place] [address] [place] [address] [phone] Social History Tobacco Use Types Packs/Day Years [...] documented as of this encounter Nursing Notes Pattie Ballesteros RN - 02/26/2018 4:58 PM CDT Message left for patient giving details about new flovent prescription available at pharmacy, and for patient to make a follow up appointment for one month from now. Also instructed if patient has any more questions, can call us at [phone]. Erendira Soliman MD - 02/26/2018 4:56 PM CDT I faxed a rx for flovent. Pt should use it for a month and then make a follow up appt. Kaye Zaragoza LPN - 02/26/2018 3:41 PM CDT PT reports already on Albuterol Inhaler which has been proven be ineffective when displaying sx. PT requesting a long acting medication to prevent her asthma attacks. Dr. Soliman could you please send new medication order directly to her pharmacy? Erendira Soliman MD - 02/26/2018 3:36 PM CDT Her results show mild findings consistent with an obstructive process or constriction of airways (mild asthma findings). An albuterol inhaler may help with these sx. If she is interested, we could try a trial of this medication that she could use when experiencing sx. She should make a follow up appt 2-3 weeks after starting the medication. Julia Camp RN - 02/26/2018 3:31 PM CDT Clinician Action: Input needed regarding PFT results Clinician Next Step: Route to [place] Nurse [place] to follow up Specific Request(s): 1. Patient requesting results of pulmonary function testing. See resulted with report available this afternoon. No result letters or notes from provider found. Tiffany Patel - 02/26/2018 12:08 PM CDT Test Results (Advise caller/patient can view test results in [facility], if enrolled) What test are you calling about? Pulmonary function test Primary Director Of Capital Giving: Padma Srinivasan MD Who ordered the test? (include first & last name) Erendira Soliman MD When and where was the test done? 02/22/18 [place] Additional comments (related to the above concern): If a prescription is needed, patient would like it filled at the pharmacy listed in Meds & Orders. (Verify the pharmacy patient would like to use for this request is highlighted in blue in PharmacySelection under Meds & Orders) Is it okay to leave a detailed message on your voicemail? Yes (Advise caller that the PN call back number will end with [phone] or unknown) Please route to: Triage Pool documented in this encounter Plan of Treatment Upcoming Encounters Date Type Specialty Care Team Description 09/01/2022 Telemedicine [place] [address] [place], [place] [address] (Wo rk) documented as of this encounter Visit Diagnoses Not on filedocumented in this encounter Care Teams Construction Supervisor/Carpenter Relationship Specialty Start Date End Date Padma Srinivasan MD PCP - General 01/06/16 07/15/19 [address] [place] [address] documented as of this encounter
--- OUTSIDE RECORDS SUMMARY | 2022-08-31 14:58 | XMS_ITS | Encounter Summary ---
:1970 Author Organization [facility] Address [address] [place] [address] Care Team Providers Name Role Phone Felipe Baum MD Primary Care Provider Reason for Visit Procedure/Equipment (Routine) - Incomplete Specialty Diagnoses / Procedures Referred By Contact Refer red To Contact Diagnoses Neck pain Felipe Baum MD Procedures XR Cervical Spine 3 [address] [address] [place] [address] Referral ID Status Reason Start Date Expiration Date Visits V isits Requested Authorized [id number] Incomplete 07/16/2019 10/14/2020 1 1 Encounter Details Date Type Department Care Team Description 07/16/2019 Ancillary Procedure [facility] Felipe Baum, Neck pain [address] [place] [address] [facility] [address] [place] [address] [phone] (Wo rk) Social History Tobacco Use Types [...] 09/01/2022 Telemedicine [place] [address] [place] [phone] (Wo rk) documented as of this encounter Procedures Procedure Name Priority Date/Time Associated Diagnosis Comme nts XR CERVICAL SPINE 3 Routine 07/16/2019 4:50 PM Neck pain Re sults for this VIEWS CDT procedure are i n the results section. documented in this encounter Results XR Cervical Spine 3 Views (07/16/2019 4:50 PM CDT) Anatomical Region Laterality Modality Spine, C-Spine, Neck Computed Radiograph y Specimen (Source) Anatomical Collection Method Collection Time Re ceived Time Location / / Volume Laterality 07/16/2019 4:32 PM CDT Impressions 07/16/2019 5:01 PM CDT COMPARISON: ??None. FINDINGS: ??There is disc space narrowin g and endplate spurring at C5-6. There is 3 mm degenerative retrolisthesis at this level. Vertebral height is normal and alignment is otherwise normal. Prevertebr al soft tissues appear normal. The odont oid appears intact. Procedure Note Fredis Holland MD - 07/16/2019Forma tting of this note might be different from the original. IMPRESSION COMPARISON: None. FINDINGS: There is disc space narrowing and endplate spurring at C5-6. There is 3 mm degenerative retrolisthesis at this level. Vertebral height is normal and alignment is otherwise normal. Prevertebral soft tissues appear normal. The odontoid appears inta ct. Felipe Baum MD RAD GD documented in this encounter Visit Diagnoses Diagnosis Neck pain Cervicalgia documented in this encounter Care Teams Diamond Wheel Edger Relationship Specialty Start Date End Date Felipe Baum MD PCP - General [facility] 07/16/19 [address] [place] [address] documented as of this encounter
--- OUTSIDE RECORDS SUMMARY | 2022-08-31 14:58 | XMS_ITS | Encounter Summary ---
:1970 Author Organization [employer] Address [address], [place] [address] Care Team Providers Name Role Phone Padma Srinivasan MD Primary Care Provider Reason for Visit Procedure/Equipment (Routine) - Incomplete Specialty Diagnoses / Procedures Referred By Contact Refer red To Contact Diagnoses Left shoulder pain, unspecified chronicity Paula Kaplan PA-[place] [address] [facility] [place] [address] Referral ID Status Reason Start Date Expiration Date Visits V isits Requested Authorized [id number] Incomplete 06/13/2016 09/12/2017 1 1 Encounter Details Date Type Department Care Team Description 06/16/2016 [facility] Paula Kaplan, Left shoulder pain, [address] [place] [address] Emilie Peralta [phone] [place], [place] [address] (Wo rk) Social History [...] 09/01/2022 Telemedicine [place] [address] [place], [place] [address] (Wo rk) documented as of this encounter Procedures Procedure Name Priority Date/Time Associated Diagnosis Comme nts FL PRE MR INJECTION Routine 06/16/2016 2:44 PM Left shoulder p ain, Results for this SHOULDER LT CDT unspecified procedure are i n chronicity the results section. documented in this encounter Results FL Pre MR Injection Shoulder Lt (06/16/2016 2:44 PM CDT) Anatomical Region Laterality Modality Upper Extremity, Shoulder Radio Fluorosc opy Specimen (Source) Anatomical Collection Method Collection Time Re ceived Time Location / / Volume Laterality 06/16/2016 2:15 PM CDT Impressions 06/16/2016 4:01 PM CDT IMPRESSION: ??Technically successful flu oroscopically guided left shoulder arthrogram. ?? Narrative 06/16/2016 4:01 PM CDT CLINICAL HISTORY: ??pain, eval joint, ? Tear ? PROCEDURE: ??Written, informed consent, including the risks of bleeding and infection, was obtained from the patient for the procedure of left shoulder fluoroscopically-guided arthrogram. ??A timeout wa s performed to verify the patient's name , date of , proper procedure and correct procedural site. ??The left shoulder was marked under fluoroscopic guidance. ??The area was prepped and draped in th e usual sterile fashion and the overlyin g skin was anesthetized with approximately 2 mL of 1% lidocaine. ?? Under fluoroscopic guidance, a 22 gauge spinal needle was advanced into the left shoulder joint capsule. 1 mL of Isovue 200 contrast was injected to confirm the location. ??A spot film was obtained to v erify the location of the needle. ??8 mL of a mixture of 20 mL of sterile saline and 0.05 mL of Gadavist contrast was injected through the needle. The needle was removed. ?? The patient tolerated the procedure well . There were no immediate complications. ? Fluoroscopy time was 0.5 minutes. ?? Procedure Note Surinder Bustos MD - 06/16/2016Format ting of this note might be different from the original. CLINICAL HISTORY: pain, eval joint, ? Te ar PROCEDURE: Written, informed consent, in cluding the risks of bleeding and infection, was obtained from the patient for the procedure of left shoulder fluoroscopically-guided arthrogram. A timeout was performed to verify the patient's name, date of , proper procedure and correct procedural site. The left shoulder was marked under fluoroscopic guidance. The area was prepped and draped in the usual sterile fashion and the overlying skin was anesthetized with approximately 2 mL of 1% lidocaine. Under fluoroscopic guidance, a 22 gauge spinal needle was advanced into the left shoulder joint capsule. 1 mL of Isovue 200 contrast was injected to confirm the location. A spot film was obtained to verify the location of the needle. 8 mL of a mixture of 20 m L of sterile saline and 0.05 mL of Gadavist contrast was injected through the needle. The needle was removed. The patient tolerated the procedure well . There were no immediate complications. Fluoroscopy time was 0.5 minutes. IMPRESSION IMPRESSION: Technically successful fluor oscopically guided left shoulder arthrogram. Paula Kaplan PA-C RAD [place] documented in this encounter Visit Diagnoses Diagnosis Left shoulder pain, unspecified chronici ty documented in this encounter Administered Medications Inactive Administered Medications - up to 3 most recent administrations Medication Order MAR Action Action Date Dose Rate Site gadobutrol (GADAVIST) 1 MMOL/ML Given 06/16/2016 2:53 PM CDT 0.0 5 mL injection 0.05 mL 0.05 mL, Intracapsular, ONCE, On Mamie 06/16/16 at 1515, For 1 dose iopamidol (ISOVUE-200) 41 % injection 3 mL Given 06/16/2016 2:48 PM CDT 3 mL 3 mL, Intracapsular, ONCE, On Mamie 06/16/16 at 1515, For 1 dose sodium chloride 0.9% injection 20 mL Given 06/16/2016 2:54 PM CDT 20 mL 20 mL, Intravenous, ONCE, On Mamie 06/16/16 at 1515, For 1 dose documented in this encounter Care Teams Video Games Mechanic Relationship Specialty Start Date End Date Padma Srinivasan MD PCP - General 01/06/16 07/15/19 [address] [place] [address] documented as of this encounter
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
--- OUTSIDE RECORDS SUMMARY | 2022-08-31 14:58 | XMS_ITS | Encounter Summary ---
:1970 Author Organization [employer] Address [address] [place] [address] Care Team Providers Name Role Phone Felipe Baum MD Primary Care Provider Reason for Visit Reason Onset Date Comments Refill 12/05/2019 albuterol 2.5 mg/3 m L, 0.083%, (PROVENTIL) nebulizer solution Refill 01/03/2020 Encounter Details Date Type Department Care Team Description 12/05/2019 Refill [facility] Felipe Baum MD Refill (albuterol 2.[address] mg/3 mL, 0.083%, [address] [address] [facility] [place] [address] (PROVENTIL) nebulizer [place], [place] [phone] (Wo rk) solution); Refill [id number] [phone] Social History Tobacco Use Types Packs/Day Years [...] documented as of this encounter Nursing Notes Interface, Out Surescripts Prov Query - 12/05/2019 2:51 PM CDT albuterol 2.5 mg/3 mL, 0.083%, (PROVENTIL) nebulizer solution Medication started: 02/01/2016 Last ordered by HUANG SCHOFIELD K: 02/01/2016 (1403 days ago) QTY: 90, Refills: 3, Sig: inhale 3 mlsby nebulization every 4 hours as needed for wheezing. (3ml is 1 ampule). pt will call for refill. (changed) -> This medication may not have been authorized by the requested provider. -> The most recent order on 01/21/2018. -> The requested sig has changed from the last order. -> Refill x 12 months (until due for an office visit) -> Calculate the quantity and number of refills manually. Last qualifying visit: 10/03/2019 (with FELIPE BAUM) Next scheduled visit: None SBP: 118 mm Hg on 10/03/2019 DBP: 76 mm Hg on 10/03/2019 Powered by [employer] Reference: [id number], 12/05/2019 2:51:09 PM CDT, Pool: JAVIER REFILL ([id number]) documented in this encounter Plan of Treatment Upcoming Encounters Date Type Specialty Care Team Description 09/01/2022 Telemedicine [place] [address] [place], [place] [address] (Wo rk) documented as of this encounter Visit Diagnoses Not on filedocumented in this encounter Care Teams Chlorinator Operator Relationship Specialty Start Date End Date Felipe Baum MD PCP - General Family Practice 07/16/19 [address] [place] [address] documented as of this encounter
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
--- OUTSIDE RECORDS SUMMARY | 2022-08-31 14:58 | XMS_ITS | Encounter Summary ---
:1970 Author Organization [facility] Address [address], [place] [address] Care Team Providers Name Role Phone Padma Srniivasan MD Primary Care Provider Reason for Visit Reason Comments Shoulder Problem Encounter Details Date Type Department Care Team Description 07/12/2017 Notes/Orders [place] [facility], Danielle Brito of left Therapy PT rotator cuff (Primary [address] Dx) [place] [address] [place], [place] [phone] (Wo rk) Social History Tobacco Use Types [...] documented as of this encounter Progress Notes Jana, Fredis Willard, PT - 09/20/2016 2:15 PM CST Encounter Date: 07/12/2017 Pt : 1970 [facility] Physical Therapy Discharge Summary Patient was seen for therapy from 06/28/16 through 07/12/16. Patient was compliant with attendance and therapy recommendations. PT - Discharge Total Visits: 3 Reason for discharge: Patient has not been consistent with attendance and/or failed to schedule appointments as planned. Primary Therapist: Discharging therapist Outcome measures at discharge: PT - Musculoskeletal - Shoulder QuickDASH (0-100, 0 being best): 40.9 Attainment of goals: The following is a review of the therapy goals: HEP/Independent Management: Demonstrate independence with HEP and self- management following each treatment session ADL's: Resume previous sleep pattern without awakening due to symptoms in 6-8 weeks. Perform home management tasks with ease in 6-8 weeks. [place] hair and face in 6-8 weeks. ALL PT GOALS WERE PROGRESSING Discharge recommendations: Patient will continue to work independently with home program/self management strategies. Therapist instructed patient to call with questions or concerns. Patient to return to therapy if symptoms recur. 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
--- OUTSIDE RECORDS SUMMARY | 2022-08-31 14:58 | XMS_ITS | Encounter Summary ---
:1970 Author Organization [email or web address] Address [address] [address] Care Team Providers Name Role Phone Padma Srinivasan MD Primary Care Provider Reason for Visit Reason Comments Refill FLOVENT HFA 110 MCG/ACT inha ler [Pharmacy Med Name: Flovent HFA Inhalation Aerosol 110 MCG/ACT] Encounter Details Date Type Department Care Team Description 02/26/2019 Refill [facility] [address] Debra Soliman MD Refill (FLOVENT HFA 110 Family Medicine [address] MCG/ACT inhaler [address] [Pharmacy Med Name: Bl[address] [place], [place] [address] Aerosol 110 MCG/ACT]) [id number] [phone] Social History Tobacco Use Types Packs/Day Years [...] place to sleep or slept in a assisted (including now)? Sex Assigned at Date Recorded Female 04/30/2021 11:10 AM CDT documented as of this encounter Nursing Notes Isela Cramer RN - 02/26/2019 1:40 PM CDT OFFICE APPOINTMENT NEEDED Please notify patient to schedule an appointment within 30 days. Requested Prescriptions Pending Prescriptions Disp Refills ??? FLOVENT HFA 110 MCG/ACT inhaler [Pharmacy Med Name: Flovent HFA Inhalation Aerosol 110 MCG/ACT] 12 g 2 Sig: INHALE 1 PUFF BY MOUTH 2 TIMES DAILY Interface, Out Surescripts Prov Query - 02/26/2019 11:35 AM CDT FLOVENT HFA 110 MCG/ACT inhaler [Pharmacy Med Name: Flovent HFA Inhalation Aerosol 110 MCG/ACT] Medication started: 02/26/2018 Last ordered by ABDOUL SOLIMAN: 02/26/2018 (365 days ago) QTY: 12, Refills: 11, Sig: inhale1 puff two times a day. (changed but equivalent) -> Refill x 3 months (courtesy refill. overdue for an office visit) -> Calculate quantity and refills manually. They could not be estimated due to missing or unreadable information. Last qualifying visit: 01/29/2018 (with ABDOUL SOLIMAN) Next scheduled visit: None SBP: 116 mm Hg on 01/29/2018 DBP: 66 mm Hg on 01/29/2018 Powered by Snapette, Reference: [id number], 02/26/2019 11:35:47 AM CDT, Pool: [id number] FM REFILL ([id number]) documented in this encounter Plan of Treatment Upcoming Encounters Date Type Specialty Care Team Description 09/01/2022 Telemedicine [place] [address] [place], [place] [address] (Wo rk) documented as of this encounter Visit Diagnoses Not on filedocumented in this encounter Care Teams Program Support Specialist Relationship Specialty Start Date End Date Padma Srinivasan MD PCP - General 01/06/16 07/15/19 [address] [place] [place] [address] documented as of this encounter
--- OUTSIDE RECORDS SUMMARY | 2022-08-31 14:58 | XMS_ITS | Encounter Summary ---
:1970 Author Organization [facility] Address [address] [address] Care Team Providers Name Role Phone Padma Srinivasan MD Primary Care Provider Reason for Visit Reason Comments POST-OP,EXAM Pulmonary function test Encounter Details Date Type Department Care Team Description 01/29/2018 Office Visit [facility] [address] Erendira Soliman P, Guillermo melgar (Primary Dx) Family Medicine [address] [facility] [place] [address] [phone] (Wo rk) Social History Tobacco Use Types [...] Sign Reading Time Taken Comments Blood Pressure 116/66 01/29/2018 1:59 PM CDT Pulse 88 01/29/2018 1:59 PM CDT Temperature - - Respiratory Rate - - Oxygen Saturation - - Inhaled Oxygen Concentration - - Weight 100.5 kg (221 lb 9.6 oz) 01/29/2018 1:59 PM CDT Height - - Body Mass Index 30.02 06/21/2016 10:00 AM CDT documented in this encounter Progress Notes Erendira Soliman MD - 01/29/2018 2:00 PM CDT SUBJECTIVE: This 47 y.o. female presents for hospital follow up. She was admitted to [facility] in mid December with hypoxia. Had been up all night the night before admission with wheezing and SOB. Was tx for asthma exacerbation with steroids and bronchodialaters. Discharged on prednisone taper. Reports doing well now, no other sx since discharge. Was discharged home on albuterol inhaler and neb. Has notneeded either one. Discharge instructions recommend pulmonary function testing when pt clear from admitting sx. Review of systems: Please see HPI Medications: Reviewed and updated as below Outpatient Medications Prior to Visit Medication Sig Dispense Refill ??? ALBUterol 2.5 mg/3 mL, 0.083%, nebulizer solution Inhale 3 mLs by nebulization every 4 hours as needed for Wheezing. (3ml is 1 ampule). Pt will call for refill. 90 mL 3 ??? ALPRAZolam (XANAX) 0.5 MG tablet TAKE ONE TABLET BY MOUTH DAILY NEEDED FOR ANXIETY. Next appt01/30/18 30 Tab 0 ??? ARIPiprazole (ABILIFY) 10 MG tablet Take 1 Tab by mouth daily. 90 Tab 1 ??? buPROPion (WELLBUTRIN XL) 150 MG 24 hour release tablet Take 3 Tabs by mouth daily. 270 Tab 1 ??? clonazePAM (KLONOPIN) 2 MG tablet TAKE ONE TABLET BY MOUTH AT BEDTIME NEEDED FOR SLEEP. Next appt 01/30/18 30 Tab 0 ??? methylphenidate (RITALIN) 20 MG tablet Take 1 Tab by mouth three times a day. May fill ON or AFTER 01/07/18 90 Tab 0 ??? zolpidem (AMBIEN) 10 MG tablet Take 1/2 - 1 tablet by mouth at bedtime as needed for sleep. Nextappt 01/30/18. 30 Tab 0 No facility-administered medications prior to visit. Adverse Drug Reactions: No Known Allergies Tobacco History: History Smoking Status ??? Never Smoker Smokeless Tobacco ??? Never Used OBJECTIVE: Vital Signs: BP 116/66 (BP Location: Right Arm, BP Cuff Size: Adult Regular) Pulse 88 Wt 221 lb 9.6 oz (100.5 kg) BMI 30.02 kg/m2 General: Alert, Oriented, NAD Head: Normocephalic. Eyes: PERRLA, full EOM. EARS: External exams normal. TMs normal. Nose: Patent, without deformity. Throat: Moist mucous membranes without lesions, erythema, or exudate. Heart: RR without murmurs, rubs, or gallops. Respiratory: Normal respiratory effort. Lungs are clear with good breath sounds. Psych: Affect is normal, patient is appropriate, grooming is appropriate. Rajesh was seen today for post-op,exam. Diagnoses and all orders for this visit: Hypoxia - Pulmonary Function Test - Complete; Future Recommended monitoring sx, return if worsening. The patient was discharged ambulatory and in stable condition. documented in this encounter Plan of Treatment Upcoming Encounters Date Type Specialty Care Team Description 09/01/2022 Telemedicine [place] [address] [place], [place] [address] (Wo rk) documented as of this encounter Results Pulmonary Function Test - Complete (02/22/2018 1:30 PM CDT) Specimen (Source) Anatomical Collection Method Collection Time Re ceived Time Location / / Volume Laterality 02/22/2018 1:30 PM CDT Erendira Soliman MD PN PFT ORDERABLES Performing Organization Address City/State/ZIP Code Phon e Number PN [place] documented in this encounter Visit Diagnoses Diagnosis Hypoxia - Primary Hypoxemia documented in this encounter Care Teams Speech Language Pathologist Travel Relationship Specialty Start Date End Date Padma Srinivasan MD PCP - General 01/06/16 07/15/19 [address] [place], [place] [id number] documented as of this encounter
--- OUTSIDE RECORDS SUMMARY | 2022-08-31 14:58 | XMS_ITS | Encounter Summary ---
:1970 Author Organization [facility] Address [address] [place] [address] Care Team Providers Name Role Phone Felipe Baum MD Primary Care Provider Encounter Details Date Type Department Care Team Description 07/16/2019 Lab Visit [facility] Weight gain; [address] [place] [address] Social History Tobacco Use Types Packs/Day Years [...] 09/01/2022 Telemedicine [place] [address] [place] [address] (Wo rk) documented as of this encounter Procedures Procedure Name Priority Date/Time Associated Diagnosis Comme nts TSH, SENSITIVE Routine 07/16/2019 4:32 PM Weight gain Results for this (WITH REFLEX) CDT procedure are in the results section. HGB A1C Routine 07/16/2019 4:32 PM Prediabetes Results f or this CDT procedure are i n the results section. documented in this encounter Results (ABNORMAL) Hemoglobin A1C Glycosylated (07/16/2019 4:32 PM CDT) Analysis Performed At Patho logist Time Signature Hemoglobin A1C 5.8 (H) <=5.6 % 07/16/2019 [facility] 11:16 PM CDT LABORATORY Specimen Anatomical Collection Method / Collection Time Recei janie Time (Source) Location / Volume Laterality Blood Venipuncture / 07/16/2019 4:32 07/16/2019 4:32 Unknown PM CDT PM CDT Narrative [facility] - 07/16/2019 11:16 PM CDT For patients not previously diagnosed with diabetes: 5.7-6.4%: Increased risk for diabetes 6.5% and greater: Diagnostic for diabete s For patients diagnosed with diabetes: <8.0%: Goal of therapy for ages 18-75 Clinicians may recommend a higher or low er goal for specific individuals. Felipe Baum MD LAB_1 Performing Organization Address City/[facility] Phon e Number [facility] [place] [address] TSH with Free T4 (if TSH Abnormal) (07/16/2019 4:32 PM CDT) athologist Signature TSH, Reflex 1.15 0.30 - 4.50 07/16/2019 [facility] uIU/mL 10:00 PM CDT LABORATORY Specimen Anatomical Collection Method / Collection Time Recei janie Time (Source) Location / Volume Laterality Blood Venipuncture / 07/16/2019 4:32 07/16/2019 4:32 Unknown PM CDT PM CDT Narrative [facility] - 07/16/2019 10:00 PM CDT Lab will automatically reflex to Free T4 when TSH results are <0.30 uIU/mL or >4.50 mIU/mL. Felipe Baum MD LAB_1 Performing Organization Address [facility] e Number [facility] [place] [address] documented in this encounter Visit Diagnoses Diagnosis Weight gain Abnormal weight gain Prediabetes Other abnormal glucose documented in this encounter Care Teams Canvas Baster Relationship Specialty Start Date End Date Felipe Baum MD PCP - General Family Practice 07/16/19 [address] [place] [address] documented as of this encounter
--- OUTSIDE RECORDS SUMMARY | 2022-08-31 14:58 | XMS_ITS | Encounter Summary ---
:1970 Author Organization [facility] Address [address] [place] [address] Care Team Providers Name Role Phone Felipe Baum MD Primary Care Provider Reason for Visit Reason Comments LARYNGITIS EDEMA Encounter Details Date Type Department Care Team Description 09/13/2019 Office Visit [facility] Ana Berger R, Sinusit is, unspecified chronicity, unspecified location (Primary Dx); Medicine PA-C Lower extremity edema; [address] [address] [facility] [address] [place], [place] [address] [phone] Social History Tobacco Use Types Packs/Day Years [...] Sign Reading Time Taken Comments Blood Pressure 122/80 09/13/2019 1:09 PM SEED POTATO ARRANGER Pulse 98 09/13/2019 1:09 PM SEED POTATO ARRANGER Temperature - - Respiratory Rate - - Oxygen Saturation 96% 09/13/2019 1:09 PM SEED POTATO ARRANGER Inhaled Oxygen Concentration - - Weight 115.8 kg (255 lb 6.4 oz) 09/13/2019 1:09 PM SEED POTATO ARRANGER Height 182.9 cm (6') 09/13/2019 1:09 PM SEED POTATO ARRANGER Body Mass Index 34.64 09/13/2019 1:09 PM SEED POTATO ARRANGER documented in this encounter Patient Instructions Patient InstructionsAna Berger PA-C - 09/13/2019 1:00 PM CST Here is plan below: 1) Finish off the Augmentin 875mg twice daily for 10 days and the Prednisone 20mg twice daily for 5 days. Stop all ibuprofen. 2) Use Simply Saline flushes in nose in AM and PM to clean out nose/sinuses. 3) Drink 2-3 liters of water per day. 4) Get the support hose and wear those as needed for the lower leg/ankle swelling. 5) Elevate legs when you can and decrease salt in your food, try to start eating healthier again nowafter the holidays. 6) If symptoms persist schedule a visit for further evaluation. Call with any questions or concerns in the meantime. Thanks, Ana Berger, PAC POTATO ARRANGER documented in this encounter Progress Notes Ana Berger PA-C - 09/13/2019 1:00 PM CST Clinic Visit SUBJECTIVE: CC: Chief Complaint Patient presents with ??? LARYNGITIS ??? EDEMA History of Present Illness: Pt is here today for laryngitis x 2 weeks. Has plugged ears and some congestion. Very sore throat also and symptoms haven't gotten better in 2 weeks. Denies any fever or cough. She has tried some hot tea, honey lemon tea, warm salt water gargles. She also tried 800mg of ibuprofen a few times per day. She says it hasn't helped and now she has some swelling in her ankles for4-5 days. Denies any SOB, chest pains, racing heart, dizziness. She has been eating to much holiday foods and is taking a lot of ibuprofen. Hasn't tried anything for the ankle swelling. PMH, Allergies and Medications reviewed and updated in [facility] today. Review of Systems: Review of systems reviewed and found to be negative except as noted above in HPI. OBJECTIVE: Vital Signs: BP 122/80 (BP Location: Left Arm, BP Cuff Size: Regular) Pulse 98 Ht 6' (1.829 m) Wt 255 lb 6.4 oz (115.8 kg) SpO2 96% BMI 34.64 kg/m?? General: Pleasant in NAD. Obese. HEENT: PERRLA, EOMI. TM's and external canals clear bilaterally. Nose: swollen turbinates, thick, yellowish, sticky drainage in nose b/l. Throat: Moderate erythema and lots of thick yellow PND in back of throat, voice is very hoarse also. Mildly tender over maxillary sinuses. Neck: Supple, no lymphadenopathy or thyromegaly Lungs: B/L wheezes throughout. No rhonchi, rales. CV: RRR, no murmurs, rubs or gallops. Skin: Warm and dry without lesions or rashes. Extremities: Trace edema of shins and ankles b/l LE, no edema of feet. DP/PT pulses 2/4+ b/l. Normalcap refill of toenails. Psych: Well dressed and groomed, normal affect. ASSESSMENT: Encounter Diagnoses Name Primary? Sinusitis, unspecified chronicity, unspecified location Yes ??? Lower extremity edema ??? Laryngitis, acute PLAN: Rajesh was seen today for laryngitis and edema. Diagnoses and all orders for this visit: Sinusitis, unspecified chronicity, unspecified location - amoxicillin-clavulanate (AUGMENTIN) 875-125 mg per tablet; Take 1 Tablet by mouth two times a day for 10 days. - predniSONE (DELTASONE) 20 MG tablet; Take 1 Tablet by mouth two times a day for 5 days. Lower extremity edema Laryngitis, acute Here is plan below: 1) Finish off the Augmentin 875mg twice daily for 10 days and the Prednisone 20mg twice daily for 5 days. Stop all ibuprofen. 2) Use Simply Saline flushes in nose in AM and PM to clean out nose/sinuses. 3) Drink 2-3 liters of water per day. 4) Get the support hose and wear those as needed for the lower leg/ankle swelling. 5) Elevate legs when you can and decrease salt in your food, try to start eating healthier again nowafter the holidays. 6) If symptoms persist schedule a visit for further evaluation. Call with any questions or concerns in the meantime. Thanks, Ana Berger, PAC POTATO ARRANGER documented in this encounter Plan of Treatment Upcoming Encounters Date Type Specialty Care Team Description 09/01/2022 Telemedicine [place] [address] [place], [place] [address] (Wo rk) documented as of this encounter Visit Diagnoses Diagnosis Sinusitis, unspecified chronicity, unspe cified location - Primary Lower extremity edema Edema Laryngitis, acute Acute laryngitis, without mention of obs truction documented in this encounter Care Teams Weld Lay Out Worker Relationship Specialty Start Date End Date Felipe Baum MD PCP - General [facility] 07/16/19 [address] [place] [address] documented as of this encounter
--- OUTSIDE RECORDS SUMMARY | 2022-08-31 14:58 | XMS_ITS | Encounter Summary ---
:1970 Author Organization [facility] Address [address], [place] [address] Care Team Providers Name Role Phone Padma Srinivasan MD Primary Care Provider Encounter Details Date Type Department Care Team Description 08/07/2018 Lab Visit [facility] [address] [facility] use of drug [address] [place] [address] Social History Tobacco Use Types Packs/Day Years [...] as of this encounter Progress Notes Edie Rich MD - 08/07/2018 3:30 PM CST Letter mailed to pt re this result. TY RELIEF VALVE TECHNICIAN documented in this encounter Plan of Treatment Upcoming Encounters Date Type Specialty Care Team Description 09/01/2022 Telemedicine [place] [address] [place], [place] [address] (Wo rk) documented as of this encounter Procedures Procedure Name Priority Date/Time Associated Diagnosis Comme nts HGB A1C Routine 08/07/2018 3:33 PM prison use of drug Results for this SAFETY RELIEF VALVE TECHNICIAN procedure are i n the results section . documented in this encounter Results (ABNORMAL) Hemoglobin A1C Glycosylated (08/07/2018 3:33 PM SAFETY RELIEF VALVE TECHNICIAN) P athologist Signature HGB A1C 6.0 (H) 4.0 - 5.6 % PN SOFT Specimen Anatomical Collection Method Collection Time Receive d Time (Source) Location / / Volume Laterality 08/07/2018 3:33 PM 8 5:09 SAFETY RELIEF VALVE TECHNICIAN PM SAFETY RELIEF VALVE TECHNICIAN Narrative DELIA ARENAS - 08/07/2018 9:42 PM SAFETY RELIEF VALVE TECHNICIAN Performed at [facility], [address] [place] [address] CLIA number [id number] Edie Rich MD LAB_1 Performing Organization Address City/State/ZIP Code Phon e Number PN SOFT [address] [place] [address] documented in this encounter Visit Diagnoses Diagnosis prison use of drug Encounter for long-term (current) use of other medications documented in this encounter Care Teams Foundation Drill Operator Helper Relationship Specialty Start Date End Date Padma Srinivasan MD PCP - General 01/06/16 07/15/19 [address] [place], [place] [address] documented as of this encounter
--- OUTSIDE RECORDS SUMMARY | 2022-08-31 14:58 | XMS_ITS | Encounter Summary ---
:1970 Author Organization [facility] Address [address], [place] [address] Care Team Providers Name Role Phone Padma Srinivasan MD Primary Care Provider Encounter Details Date Type Department Care Team Description 02/22/2018 Pulmonary Lab Visit PULMONARY LAB AT [facility] [address] [place] [address] Social History Tobacco Use Types Packs/Day Years [...] 09/01/2022 Telemedicine [place] [address] [place] [address] (Wo rk) Scheduled Orders Name Type Priority Associated Diagnoses Order S chedule Pulmonary Function Test PFT Routine Hypoxia 1 Oc currences starting - Complete 02/22/2018 unti l 02/22/2019 documented as of this encounter Procedures Procedure Name Priority Date/Time Associated Diagnosis Comme nts COMPLETE PULMONARY Routine 02/22/2018 1:30 PM CDT Hypoxia FUNCTION TEST documented in this encounter Results Pulmonary Function Test - Complete (02/22/2018 1:30 PM CDT) Specimen (Source) Anatomical Collection Method Collection Time Re ceived Time Location / / Volume Laterality 02/22/2018 1:30 PM CDT Erendira Soliman MD PN PFT ORDERABLES Performing Organization Address City/State/ZIP Code Phon e Number PN [place] documented in this encounter Visit Diagnoses Diagnosis Hypoxia Hypoxemia documented in this encounter Care Teams Senior Software Test Engineer Relationship Specialty Start Date End Date Padma Srinivasan MD PCP - General 01/06/16 07/15/19 [address] [place] [address] documented as of this encounter
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
--- OUTSIDE RECORDS SUMMARY | 2022-08-31 14:58 | XMS_ITS | Encounter Summary ---
:1970 Author Organization [facility] Address [address], [place] [address] Care Team Providers Name Role Phone Padma Srinivasan MD Primary Care Provider Reason for Visit Reason Onset Date Comments Refill 02/28/2019 ALBUterol sulfate HF A 108 (90 Base) MCG/ACT inhaler Encounter Details Date Type Department Care Team Description 02/28/2019 Refill [place] [address] Michael Srinivasan MD Refill (ALBUterol Family Medicine [address] sulfate HFA 108 ([address] Base) MCG/ACT inhaler) [facility] [address] [phone] Social History Tobacco Use Types Packs/Day Years [...] documented as of this encounter Nursing Notes Kate Gaytan - 03/04/2019 4:05 PM CDT Medication Refill - Overdue for Visit Called patient, was: Successful in reaching patient We recently received a refill request for one of your medications. To continue managing your medication refills, your clinician would like to see you for a(n): Patient is due for a(n): office visit Patient declined to schedule due to: Out of town - will call when she's back I will send a request to see if a temporary refill can be provided. Please check with your pharmacy on the status of your refill. We will notify you if it has not been approved. Frontline: Route to clinician identified in nursing documentation below Clinician Action: Patient declines to schedule, requests refill. Recommend using Rx Final or Rx Deny quick action to address request. Becky Gant - 03/01/2019 1:51 PM CDT Medication Refill - Overdue for Visit Called patient, was: Unable to reach patient 1st call attempted. Left message to call back. PSC Action: Patient needs to schedule an appointment for their medication refill. Schedule and verify if they have enough medication until their next appointment. If additional medication is needed, route this encounter high priority to Refill Pool ([phone] [id number]) Marcia Coppola, NATHAN - 02/28/2019 5:40 PM CDT Further Assistance Needed on Refill from Cold Reduction Roller Patient is overdue for Office visit. -> A qualifying visit was not found within the last 2 years. Last qualifying visit: None (A recent visit (in Family Practice) was found) Next scheduled visit: None Please call patient to schedule a Office Visit and document using .HENRIETTA. After attempting to schedule patient: If appointment scheduled: Please route to: Refill Wizard Admin-PN pool ([id number]) If unable to schedule appointment: Please route to: Padma Srinivasan MD Requested Prescriptions Pending Prescriptions Disp Refills ??? ALBUterol sulfate HFA 108 (90 Base) MCG/ACT inhaler 1 Inhaler 0 Sig: Inhale 1-2 Puffs every 4 hours as needed for Wheezing. Pharmacy may substitute albuterol HFA inhalers based on insurance Interface, Out Surescripts Prov Query - 02/28/2019 12:47 PM CDT ALBUterol sulfate HFA 108 (90 Base) MCG/ACT inhaler Medication started: 01/30/2018 Last ordered by UNKNOWN, PHYSICIAN: 01/30/2018 (394 days ago as Historical on 01/30/2018 by SAMARA BELLAMY), Sig: inhale 1-2 puffs every 4 hours as needed for wheezing. pharmacy may substitute albuterol hfa inhalers based on insurance (unchanged) -> This medication may not have been authorized by the requested provider. -> The requested medication was previously set to Historical. -> A qualifying visit was not found within the last 2 years. Last qualifying visit: None (A recent visit (in Family Practice) was found) Next scheduled visit: None SBP: 116 mm Hg on 01/29/2018 DBP: 66 mm Hg on 01/29/2018 Powered by [employer], Reference: [id number], 02/28/2019 12:47:35 PM CDT, Pool: [id number] FM REFILL ([id number]) documented in this encounter Plan of Treatment Upcoming Encounters Date Type Specialty Care Team Description 09/01/2022 Telemedicine [place] [address] [place], [place] [address] (Wo rk) documented as of this encounter Visit Diagnoses Not on filedocumented in this encounter Care Teams Argon Tester Relationship Specialty Start Date End Date Padma Srinivasan MD PCP - General 01/06/16 07/15/19 [address] [place] [address] documented as of this encounter
--- OUTSIDE RECORDS SUMMARY | 2022-08-31 14:58 | XMS_ITS | Encounter Summary ---
:1970 Author Organization [employer] Address [address], [place] [address] Care Team Providers Name Role Phone Padma Srinivasan MD Primary Care Provider Reason for Visit Reason Comments Appt. Work In Request Encounter Details Date Type Department Care Team Description 01/01/2018 Telephone [facility] [address] Padma Srinivasan, Ede t. Work In Request Family Medicine [address] [facility] [place] [phone] (Wo rk) Social History Tobacco Use Types [...] documented as of this encounter Nursing Notes Genna Camacho - 01/01/2018 2:02 PM CDT Pt is scheduled for 01/29 at 230 with pcp. Larisa Crocker RN - 01/01/2018 1:27 PM CDT Frontline, please call and schedule. Padma Zuluaga MD - 01/01/2018 1:18 PM CDT Ok for acute visit. thl Christel Harris RN - 01/01/2018 12:03 PM CDT Reason for Call: Appointment Work In requested. Next Steps: Route to [facility] for patient follow up. Additional Information: work in request for 01/29/18 Georgia Powell - 01/01/2018 10:55 AM CDT Pt called to schedule a [facility] appt following a stay at [facility] for asthma exacerbation. Pt scheduled next available appt with PCP which was for 02/05/18. Pt would like to see if PCP would be able to work her in the week prior if possible, preferably 01/29/18. Pt is requesting a call back to let her know if this would work. Please advise. documented in this encounter Plan of Treatment Upcoming Encounters Date Type Specialty Care Team Description 09/01/2022 Telemedicine [place] [address] [place], [place] [address] (Wo rk) documented as of this encounter Visit Diagnoses Not on filedocumented in this encounter Care Teams Building Energy Consultant Relationship Specialty Start Date End Date Padma Srinivasan MD PCP - General 01/06/16 07/15/19 [address] [place], [place] [id number] documented as of this encounter
--- OUTSIDE RECORDS SUMMARY | 2022-08-31 14:58 | XMS_ITS | Encounter Summary ---
:1970 Author Organization [facility] Address [address] [place] [address] Care Team Providers Name Role Phone Felipe Baum MD Primary Care Provider Reason for Referral Therapies (Routine) - Closed Specialty Diagnoses / Procedures Referred By Contact Refer red To Contact Diagnoses [place] [address] [place] [address] Referral ID Status Reason Start Date Expiration Date Visits Requ ested Visits Authorized [id number] Closed 07/16/2019 09/14/2019 1 1 Scheduling Instructions Your provider has recommended an appoint ment with [facility]. You may call [phone] to schedule your a ppointment. If you do not schedule an appointment within the next 1 to 3 busin ess days, we will call you to help arrange your appointment. We suggest you call [employer] about your coverage and benefits for this appointme nt. Procedure/Equipment (Routine) - Incomplete Specialty Diagnoses / Procedures Referred By Contact Refer red To Contact Diagnoses Neck pain Felipe Baum MD Procedures XR Cervical Spine 3 Views [address] [place] [address] Referral ID Status Reason Start Date Expiration Date Visits V isits Requested Authorized [id number] Incomplete 07/16/2019 10/14/2020 1 1 Consult/Transfer Care (Routine) - Closed Specialty Diagnoses / Procedures Referred By Contact Refer red To Contact Diagnoses Moderate persistent asthma without complication (HRC) [place] [address] [place] [address] Referral ID Status Reason Start Date Expiration Date Visits Requ ested Visits Authorized [id number] Closed 07/16/2019 10/14/2020 1 1 Scheduling Instructions Your provider has recommended an appoint ment with [facility]. You may call [phone] to schedule your a ppointment. If you do not schedule an appointment within the next 1 to 3 busin ess days, we will call you to help arrange your appointment. We suggest you call [employer] about your coverage and benefits for this appointme nt. Reason for Visit Reason Comments Establish Care albuterol refill, neck pain x 3-4 weeks Encounter Details Date Type Department Care Team Description 07/16/2019 Office Visit [facility] Felipe Baum Encoun [facility] for medical examination to establish care (Primary Dx); Medicine Neck pain; [address] [address] [address] [facility] Weight gain; [place], [place] Moderate pers istent asthma without complication; [id number] Prediabetes; [phone] Needs flu shot (Work) Social History Tobacco Use Types Packs/Day [...] Sign Reading Time Taken Comments Blood Pressure 120/84 07/16/2019 3:50 PM CDT Pulse 94 07/16/2019 3:50 PM CDT Temperature 36.9 ??C (98.5 ??F) 07/16/2019 3:50 PM CDT Respiratory Rate 19 07/16/2019 3:50 PM CDT Oxygen Saturation - - Inhaled Oxygen Concentration - - Weight 110.7 kg (244 lb) 07/16/2019 3:50 PM CDT Height - - Body Mass Index 33.05 06/21/2016 10:00 AM CDT documented in this encounter Patient Instructions Patient InstructionsHanson, Felipe S, MD - 07/16/2019 4:00 PM CDT ?? Start taking cetirizine 10 mg daily. documented in this encounter Progress Notes Felipe Baum MD - 07/16/2019 4:00 PM CDT Subjective Chief Complaint Patient presents with ??? Establish Care albuterol refill, neck pain x 3-4 weeks Rajesh Caba is a 48 y.o. female who presents for establishment of care. The patient has a history of multiple medical problems including multiple psychiatric diagnoses such as depression, anxiety, ADHD, and insomnia which is managed by her psychiatrist, Dr. Edie Rich MD. Rajesh also carries a diagnosis of asthma. 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 She had a significant exacerbation for which she was hospitalized at [facility] in September 2018 for 3 days. Since then, she thinks she has required steroids for exacerbations at least 2 or 3 times. Her home routine currently includes Flovent twice daily and albuterol as needed. She is using her albuterol at least 3-6 times per week mostly in the afternoon andshe finds that helps with her symptoms of chest tightness and wheezing. Her symptoms get better in the summer and start to get worse again after returning to school. 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 She does not take any allergy medication at this time. She has never been a smoker. In addition, she complains of pain in the middle of her lower cervical spine for the past 3-4 weeks.She does not recall any specific injury, but has pain that she describes as ???burning.?? It only lasts a minute or 2 at a time, but happens quite frequently throughout the day. She rarely has radiation of the pain into her left shoulder and otherwise denies any numbness, tingling, or weakness of theupper extremities. She denies any vision changes or headaches as well as any history of neck pain ortrauma in the past. Finally, the patient states she has gained at least 60 lb in the past year. She wonders why this is as she tries to watch what she eats and stays active. She is quite frustrated at this. Her psychiatrist has talked about how some of this could be related to medication, but she wonders if something else is going on. Otherwise, she has not had any fevers, chills, nausea, vomiting or diarrhea and she voices no other concerns at this time. Review of Systems A complete review of systems was negative except for above as mentioned in the HPI. Objective BP 120/84 (BP Location: Left Arm, BP Cuff Size: Regular) Pulse 94 Temp 98.5 ??F (36.9 ??C) (Oral) Resp 19 Wt 244 lb (110.7 kg) BMI 33.05 kg/m?? Physical Exam Constitutional: She is well-developed, well-nourished, and in no distress. HENT: Head: Normocephalic and atraumatic. Eyes: Pupils are equal, round, and reactive to light. Conjunctivae are normal. Neck: Mild tenderness over palpation of C6-C7. No paraspinal muscular tenderness. Full range of motion of the neck. Cardiovascular: Normal rate, regular rhythm and normal heart sounds. Pulmonary/Chest: Effort normal. Expiratory wheezing throughout all lung alatorre. Abdominal: Soft. There is no tenderness. Lymphadenopathy: She has no cervical adenopathy. Neurological: She is alert. Skin: Skin is warm and dry. Psychiatric: Affect normal. Vitals reviewed. Assessment/Plan Rajesh was seen today for establish care. Diagnoses and all orders for this visit: Encounter for medical examination to establish care Neck pain - XR Cervical Spine 3 Views; Future - Physical Therapy Weight gain - TSH with Free T4 (if TSH Abnormal); Future Moderate persistent asthma without complication (HRC) - Allergy And Immunology Consult Adult/Peds - budesonide-formoterol (SYMBICORT) 160-4.5 MCG/ACT inhaler; Inhale 2 Puffs two times a day. - Influenza IIV4 (Quadrivalent) 0.5 mL (99491) Prediabetes - Hemoglobin A1C Glycosylated; Future Needs flu shot - Influenza IIV4 (Quadrivalent) 0.5 mL (83069) Moderate persistent asthma -Her asthma is not under good control currently. Her ACT score is 18, but she is using her albuterolinhaler almost daily and feels like she is wheezing pretty much all day. As a result, I will increase her therapy to Symbicort. She should stop using her Flovent and continue to use her albuterol as needed. - I have also recommended that she start taking cetirizine 10 mg daily. I am suspicious that there may be some type of exposure to mold or another allergen at her work that is causing worsening of her symptoms as they are significantly better in the summer. She was also provided a referral to Allergy for allergy testing. Neck pain - Unlikely to be fracture given the lack of known trauma. I will obtain an x-ray of the cervical spine to rule out DJD as a cause. I have also recommended that she start using NSAIDs and have provided a referral to physical therapy. Weight gain - Will check TSH to rule this out as a cause Prediabetes - Hemoglobin A1c back in July 2018 was 6.0. We will repeat this today. Need for immunization against influenza - Influenza immunization administered today Health maintenance - Patient has had normal Pap smears in the past. She sees an OBGYN and just had a normal exam with Pap smear 2 weeks ago. Follow up as needed. Felipe Baum MD 07/16/2019 documented in this encounter Plan of Treatment Upcoming Encounters Date Type Specialty Care Team Description 09/01/2022 Telemedicine [place] [address] [place], [place] [address] (Wo rk) Scheduled Referrals Name Type Priority Associated Diagnoses Order S chedule Allergy And Immunology Referral Routine Moderate persisten t Ordered: 07/16/2019 Consult Adult/Peds asthma without complication Physical Therapy Referral Routine Neck pain Ordered: documented as of this encounter Results XR Cervical Spine 3 [...] inta ct. Felipe Baum MD RAD GD (ABNORMAL) Hemoglobin A1C Glycosylated (07/16/2019 4:32 PM CDT) Analysis Performed At Patho logist Time Signature Hemoglobin A1C 5.8 (H) <=5.6 % 07/16/2019 [facility] 11:16 PM CDT LABORATORY Specimen Anatomical Collection Method / Collection Time Recei janie Time (Source) Location / Volume Laterality Blood Venipuncture / 07/16/2019 4:32 07/16/2019 4:32 Unknown PM CDT PM CDT Narrative [facility] - 07/16/2019 11:16 PM CDT For patients not previously diagnosed with diabetes: 5.7-6.4%: Increased risk for diabetes 6.5% and greater: Diagnostic for diabete s For patients diagnosed with diabetes: <8.0%: Goal of therapy for ages 18-75 Clinicians may recommend a higher or low er goal for specific individuals. Felipe Baum MD LAB_1 Performing Organization Address City/State/ZIP Code Phon e Number [facility] [address] [place] [address] TSH with Free T4 (if TSH Abnormal) (07/16/2019 4:32 PM CDT) P athologist Signature TSH, Reflex 1.15 0.30 - 4.50 07/16/2019 [facility] uIU/mL 10:00 PM CDT LABORATORY Specimen Anatomical Collection Method / Collection Time Recei janie Time (Source) Location / Volume Laterality Blood Venipuncture / 07/16/2019 4:32 07/16/2019 4:32 Unknown PM CDT PM CDT Narrative [facility] - 07/16/2019 10:00 PM CDT Lab will automatically reflex to Free T4 when TSH results are <0.30 uIU/mL or >4.50 mIU/mL. Felipe Baum MD LAB_1 Performing Organization Address City/State/ZIP Code Phon e Number [facility] [address] [place] [address] documented in this encounter Visit Diagnoses Diagnosis Encounter for medical examination to [facility] - Primary Neck pain Cervicalgia Weight gain Abnormal weight gain Moderate persistent asthma without compl ication (HRC) Unspecified asthma Prediabetes Other abnormal glucose Needs flu shot Need for prophylactic vaccination and in oculation against influenza Neck pain Cervicalgia documented in this encounter Care Teams Wallboard Worker Relationship Specialty Start Date End Date Felipe Baum MD PCP - General Family Practice 07/16/19 [address] [place] [address] documented as of this encounter
--- OUTSIDE RECORDS SUMMARY | 2022-08-31 14:58 | XMS_ITS | Encounter Summary ---
:1970 Author Organization [facility] Address [address] [address] Care Team Providers Name Role Phone Padma Srinivasan MD Primary Care Provider Reason for Visit Procedure/Equipment (Routine) - Canceled Specialty Diagnoses / Procedures Referred By Contact Refer red To Contact Procedures Paula Kaplan, JACQUELINE XR Shoulder Rt 2+ Views [address] [place] [address] Referral ID Status Reason Start Date Expiration Date Visits V isits Requested Authorized [id number] Canceled 06/13/2016 09/12/2017 1 1 Encounter Details Date Type Department Care Team Description 06/13/2016 Imaging [facility] Paula Kaplan, Chronic right shoulder [address] [facility] [place] [address] [place] [phone] [place], [place] [address] (Wo rk) Social History [...] 09/01/2022 Telemedicine [place] [address] [place], [place] [address] (Wo rk) documented as of this encounter Visit Diagnoses Diagnosis Chronic right shoulder pain Pain in joint, shoulder region documented in this encounter Care Teams Extension Course Counselor Relationship Specialty Start Date End Date Padma Srinivasan MD PCP - General 01/06/16 07/15/19 [address] [place] [address] documented as of this encounter
--- OUTSIDE RECORDS SUMMARY | 2022-08-31 14:59 | XMS_ITS | Encounter Summary ---
:1970 Author Organization [facility] Address [address], [place] [address] Care Team Providers Name Role Phone Unavailable Primary Care Provider Unavailable Reason for Visit Reason Comments Medication Questions Encounter Details Date Type Department Care Team Description 02/17/2012 Telephone [facility] Janki Cohen RN Medication Questions [address] [place], [place] [phone] (Wo rk) Social History Tobacco Use Types Packs/Day Years Used Date Smoking Tobacco: Never Assessed Alcohol Habits Answer Date Recorded How often [...] as of this encounter Nursing Notes Janki Hoover RN - 02/17/2012 1:31 PM CDT Patient came in through [facility] on Monday this week, medication request refused at that time due to patient on a weaning off program with Dr. Ontiveros. Patient informed she would not receive medications through [facility] Cadena PA-C. Today received another request for pain medication refills, per [facility]ena PA-C, no refills granted. Patient's appointment on Monday was canceled, as patient is not a patient with Dr. Ontiveros, and needs to continue on her plan. Dior will not provide further refills orallow access to be on her schedule. documented in this encounter Plan of Treatment Upcoming Encounters Date Type Specialty Care Team Description 09/01/2022 Telemedicine [place] [address] [place], [place] [address] (Wo rk) documented as of this encounter Visit Diagnoses Not on filedocumented in this encounter
--- OUTSIDE RECORDS SUMMARY | 2022-08-31 14:59 | XMS_ITS | Encounter Summary ---
:1970 Author Organization [facility] Address [address], [place] [address] Care Team Providers Name Role Phone Unavailable Primary Care Provider Unavailable Reason for Visit Reason Comments Refill Encounter Details Date Type Department Care Team Description 02/17/2012 Refill [facility] Sue Leblanc Refill [address] [place], [place] [address] Social History Tobacco Use Types Packs/Day Years [...] documented as of this encounter Nursing Notes Sue Armstrong - 02/17/2012 11:03 AM CDT Prescription Refills Refused Prescriptions Disp Refills ??? oxyCODONE-acetaminophen (PERCOCET) 5-325 mg per tablet 20 tablet 0 Sig: Take 1-2 tablets by mouth every 6 hours as needed for Pain. Refused By: MICHAEL VARGHESE Reason for Refusal: PATIENT NO LONGER UNDER PROVIDER CARE Pt is aware that med request was refused via VM message at home # Sue Armstrong - 02/17/2012 8:12 AM CDT pt has a new onset of back pain my back is out. Pt does have an appt for this upcoming Monday withDior Cadena documented in this encounter Plan of Treatment Upcoming Encounters Date Type Specialty Care Team Description 09/01/2022 Telemedicine [place] [address] [place], [place] [address] (Wo rk) documented as of this encounter Visit Diagnoses Not on filedocumented in this encounter
--- OUTSIDE RECORDS SUMMARY | 2022-08-31 14:59 | XMS_ITS | Encounter Summary ---
:1970 Author Organization [facility] Address [address], [place] [address] Care Team Providers Name Role Phone Padma Srinivasan MD Primary Care Provider Encounter Details Date Type Department Care Team Description 02/01/2016 Lab Visit [facility] 3850 Screening for hyperlipidemia; Laboratory Screening for diabetes nan askew; [address] Screening for thyroid disord er [place], [place] [id number] Social History Tobacco Use Types Packs/Day Years [...] 09/01/2022 Telemedicine [place] [address] [place], [place] [address] (Wo rk) documented as of this encounter Procedures Procedure Name Priority Date/Time Associated Diagnosis Comme nts CHOL, HDL, LDL Routine 02/01/2016 2:27 PM Screening for Result s for this NON-FASTING CDT hyperlipidemia procedure are in the results section. TSH AND FREE T4 Routine 02/01/2016 2:27 PM Screening for thyro id Results for this (FRT4 IF TSH CDT disorder procedure are i n ABNORM) the results section. HGB A1C Routine 02/01/2016 2:27 PM Screening for diabetes Results for this CDT mellitus procedure are i n the results section. documented in this encounter Results TSH AND FREE T4 (FRT4 IF TSH ABNORM) (02/01/2016 2:27 PM CDT) P athologist Signature Thyroid 1.86 0.20 - HP CONVERSION Stimulating 4.50 Hormone uIU/mL Specimen Anatomical Collection Method Collection Time Receive d Time (Source) Location / / Volume Laterality 02/01/2016 2:27 PM 6 4:34 CDT PM CDT Narrative HP CONVERSION - 02/01/2016 6:36 PM [place] [address] CLIA number [id number] Padma Srinivasan MD LAB_1 Performing Organization Address [facility] Phon e Number HP CONVERSION Hgb A1c (02/01/2016 2:27 PM CDT) P athologist Signature HGB A1C 5.4 4.0 - 5.6 % HP CONVERSION Specimen Anatomical Collection Method Collection Time Receive d Time (Source) Location / / Volume Laterality 02/01/2016 2:27 PM 6 3:41 CDT PM CDT Narrative HP CONVERSION - 02/01/2016 9:17 PM CDT Performed at [facility], [address] [place] [address] CLIA number [id number] Padma Srinivasan MD LAB_1 Performing Organization Address [facility] Phon e Number HP CONVERSION (ABNORMAL) CHOL, HDL, LDL NON-FASTING (02/01/2016 2:27 PM CDT) [facility] Method Time Signature Cholesterol 156 0 - 199 HP CONVERSION mg/dL Triglycerides 78 4 - 149 HP CONVERSION mg/dL HDL Cholesterol 38 (L) >39 mg/dL HP CONVERSION LDL Direct 111 0 - 130 HP CONVERSION mg/dL Cholesterol/HDL 4.1 HP CONVERSION Ratio Screen Specimen Anatomical Collection Method Collection Time Receive d Time (Source) Location / / Volume Laterality 02/01/2016 2:27 PM 6 2:27 CDT PM CDT Narrative HP CONVERSION - 02/01/2016 4:15 PM CDT Performed at [facility], [address] [place] [address] CLIA number [id number] Padma Srinivasan MD LAB_1 Performing Organization Address [facility] Phon e Number HP CONVERSION documented in this encounter Visit Diagnoses Diagnosis Screening for hyperlipidemia Screening for lipoid disorders Screening for diabetes mellitus Screening for thyroid disorder documented in this encounter Care Teams Clay Shop Supervisor Relationship Specialty Start Date End Date Padma Srinivasan MD PCP - General 01/06/16 07/15/19 [address] [place] [address] documented as of this encounter
--- OUTSIDE RECORDS SUMMARY | 2022-08-31 14:59 | XMS_ITS | Encounter Summary ---
:1970 Author Organization [employer] Address [address], [place] [address] Care Team Providers Name Role Phone Padma Srinivasan MD Primary Care Provider Reason for Referral Specialty Diagnoses / Procedures Referred By Contact Refer red To Contact Padma Srinivasan M D [address] [place] [address] Referral ID Status Reason Start Date Expiration Date Visits Requ ested Visits Authorized Reason for Visit Reason Comments Shoulder Problem Encounter Details Date Type Department Care Team Description 02/03/2016 Initial Consult [facility] Mami Miller, Disorder of left rotator cuff; Therapy PT Subacromial bursitis, left [address] [place] [address] [place] [phone] [id number] Social History Tobacco Use Types Packs/Day Years [...] documented as of this encounter Progress Notes Mami Ayon, PT - 02/03/2016 2:42 PM CDT Date of Service: 02/03/2016 Pt : 1970 [facility] - Shoulder Evaluation/Plan of Care Initial Certification Period: 02/03/2016 to 04/03/16 Referring Provider: Padma Srinivasan Visit Diagnosis: 1. Disorder of left rotator cuff 2. Subacromial bursitis, left (HRC) Precautions: History of anxiety and depression Orders: Evaluate & treat Onset/Referral Date: Referral Date 01/31 SUBJECTIVE Reason for Visit: Patient reports left shoulder pain that has been increasing over the last 3 monthswithout known causes. Pain seems to increase with lifting over shoulder height, lifting, reaching behind her and certain hygiene activities. Reports sleeping ok unless she moves quickly or lays on thatside. Pain is described as sharp and radiating. Relief is found with ice and at times OTC medications. Patient Therapy Goals: Resume previous level of activity symptom free. Past Medical History: Past medical history, medication, and allergies were reviewed in the electronic medical record. Past Medical History Diagnosis Date ??? Depression ??? Anxiety (HRC) ??? Major depressive disorder, recurrent episode, moderate ([facility]) 11/30/2011 ??? Anxiety disorder NOS 11/30/2011 ??? ADHD (attention deficit hyperactivity disorder) ([facility]) 11/30/2011 ??? Polysubstance dependence, in full and sustained remission 11/30/2011 ??? Low back pain (HRC) 11/30/2011 ??? Radiculopathy, L3 11/30/2011 ??? Insomnia, unspecified 08/02/2013 Previous Treatment: None Benefited from previous treatment: not applicable Pain Details: Current pain intensity level: 11/25-04/27 Pain location: anterior shoulder and radiates down to her elbow Sleep interruptions: Difficulty getting comfortable in order to sleep. Pain quality: Aching, Sharp and Stabbing Aggravating factors: Sleep (Left), Dressing/Grooming, Carrying, Lifting, Driving and Overhead activities Relieving factors: Icing, Medication and Restriction of activity Work/Leisure/Sport: Does not currently work outside of the home but has 2 daughters that she likes to spend time with OBJECTIVE Observation: forward head and rounded shoulders Screening: thoracic hypomobile ROM: Left Shoulder AROM Flexion: 160 Abduction: 160 External rotation: occiput Internal rotation: left hip Left Shoulder PROM Flexion: 180 Abduction: 175 External rotation: 25 Internal rotation: 30 Strength: grossly 4/5 pain with external rotation and abduction Neurological: Not performed Flexibility: Pectoralis major: limited, Pectoralis minor: limited and Infraspinatus/teres minor: limited Joint mobility: GH: limited posterior; slightly limited inferior Palpation: tender on supraspinatus insertion Special Tests: ([place]: (-) = no reproduction of symptoms; (+) = reproduction of symptoms) Martinez test for impingement: pos for pain Neer test for impingement: pos for pain Empty can: pos for pain Lift off test : neg Speeds: pos for pain Functional tests: Hands behind head restricted. Hands behind back restricted. Hands on opposite shoulders restricted. PT Outcomes: PT Program: Musculoskeletal - Shoulder QuickDASH (0-100, 0 being best): 45.45 Today's Intervention: Physical Therapy Evaluation was completed and the patient was educated on the condition, planned therapy intervention and expectations from treatment. Therapeutic exercise x 15 minutes: -Patient was instructed on and completed return demonstration for HEP. Handouts provided to include; side lying shoulder external rotation sleeper stretch prone scapular retraction/depression self friction massage continue with icing Manual therapy x 5 minutes: -HVLA thrust in prone to mid thoracic with several cavitations -Gr2-3 anterior posterior glenohumeral mobilization Timed Code Treatment Minutes: 20 Total Treatment Minutes: 35 ASSESSMENT Therapist Impression/Summary: Patient presents with signs and symptoms consistent with shoulder impingement resulting in increased pain with daily activities. Skilled PT services indicated to address impairments in order to promote function Recommendations/Equipment: No additional recommendations at this time Significant Impairments: Pain, Muscle tightness/decreased flexibility, Muscle weakness, Muscular imbalances, Joint hypomobility, ROM Limitation, Proprioception deficits, Postural restrictions Functional Limitations: poor body mechanics, difficulty dressing, difficulty with household tasks, difficulty with sports/leisure activities and difficulty with driving Goals/Functional Outcomes: HEP/Independent Management: Demonstrate independence with HEP and self- management following each treatment session ADL's: Perform home management tasks with ease in 8 weeks. [place] hair and face in 8 weeks. Reach overhead to put dishes away with ease in 8 weeks Tolerated dressing and hygiene tasks without increased pain in 8 weeks Tolerate lifting without increased pain in 8 weeks Barriers to Goal Achievement or Learning: none Prognosis: good PLAN Planned Intervention/Education: ADL/Self Management, Education, Electrical Stimulation, Iontophoresis with dexamethasone, Manual Therapy, Neuromuscular Re- education, Therapeutic Activities, TherapeuticExercise, Ultrasound Frequency: 1 x week Duration: 60 days Discharge Plan: Patient will be discharge from therapy when goals are achieved or patient plateaus in progress. Informed Consent: Patient and/or family in agreement with the care plan. Plan for Next Treatment: Progress strengthening and flexibility as tolerated static to dynamic. Manual therapy and modalities as needed for pain and mobility The schedule manager is completed by the therapist and the referring clinician's electronic signature certifies medical necessity for the plan above. PREVENTION REPRESENTATIVE documented in this encounter Plan of Treatment Upcoming Encounters Date Type Specialty Care Team Description 09/01/2022 Telemedicine [place] [address] [place], [place] [address] (Wo rk) Scheduled Referrals Name Type Priority Associated Diagnoses Order S [facility] Physical Therapy Referral Routine Disorder of left rotator Ordered: 02/03/2016, cuff Expires: 02/03/2016 Subacromial bursitis, left documented as of this encounter Visit Diagnoses Diagnosis Disorder of left rotator cuff Disorders of bursae and tendons in shoul zafar region, unspecified Subacromial bursitis, left documented in this encounter Care Teams Reclamation Engineer Relationship Specialty Start Date End Date Padma Srinivasan MD PCP - General 01/06/16 07/15/19 [address] [place] [address] documented as of this encounter
--- OUTSIDE RECORDS SUMMARY | 2022-08-31 14:59 | XMS_ITS | Encounter Summary ---
:1970 Author Organization [employer] Address [address] [address] Care Team Providers Name Role Phone Unavailable Primary Care Provider Unavailable Reason for Visit Reason Comments Back Pain Encounter Details Date Type Department Care Team Description 03/31/2012 Hospital Encounter [facility] re Fatimah Gotti, Low back pain [address] [facility] [place], [place] [id number] Social History Tobacco Use Types Packs/Day Years [...] Sign Reading Time Taken Comments Blood Pressure 118/81 03/31/2012 9:11 AM CDT Pulse 96 03/31/2012 9:11 AM CDT Temperature 36.8 ??C (98.2 ??F) 03/31/2012 9:11 AM CDT Respiratory Rate 20 03/31/2012 9:11 AM CDT Oxygen Saturation - - Inhaled Oxygen Concentration - - Weight - - Height - - Body Mass Index - - documented in this encounter Medications at Time of Discharge Medication Sig Dispensed Refills Start Date End Date ALPRAZolam (AKA XANAX) 0.5 Take 1 tablet by 30 tablet 1 06/201205/09/2012 MG tablet mouth daily as needed. [facility]. [phone] Indications: ANXIETY buPROPion (AKA WELLBUTRIN Take 1 tablet by 60 tablet 1 03/1805/18/2012 SR) 200 MG 12 hour release mouth 2 times tablet daily. citalopram (AKA CELEXA) 40 Take 1 tablet by 30 tablet 5 08/201204/25/2012 MG tablet mouth daily (every 24 hours). clonazePAM (AKA KLONOPIN) 1 Take 1 tablet by 30 tablet 0 05/08/2012 MG tablet mouth at bedtime as needed (anxiety/sleep). FAX TO Aroldo [facility] [phone] APPT 04/25 methylPREDNISolone (aka Take by mouth. 21 tablet 0 03/31/20 12 11/22/2012 MEDROL 21 TABLET DOSEPACK) Follow package dose pack directions. zolpidem (AKA AMBIEN) 10 MG Take 1 tablet by 30 tablet 5 08/28/2012 tablet mouth at bedtime as needed. documented as of this encounter ED Notes Fatimah Gotti MD - 03/31/2012 10:11 AM CDT CC: low back pain SUBJECTIVE: Rajesh Caba is a 41 y.o.female who presents with acute low back pain that started last night. The patient says she's chronic back pain has been diagnosed with bulging discs from L2-L5. She says this pain is the same as her normal chronic pain in terms of the characteristics of thepain but just more severe. He had been on a long road trip and she was sitting a lot and she also did some unloading of the car last evening the upon their return. She says her back has been pretty good as of late. She tried Ambien clonazepam and Xanax to help her sleep last night she was unable to sleep due to the pain. She says the pain goes into her hips. She has no pain radiating down her legs. No numbness or tingling in her legs. No abdominal pain or urinary symptoms. No fever. She has been followed at [facility] for her back pain. No loss of bowel or bladder. Social History: History Substance Use Topics ??? Smoking status: Never Smoker ??? Smokeless tobacco: Not on file ??? Alcohol Use: Yes Past Medical History: Past Medical History Diagnosis Date ??? Depression ??? Anxiety ??? Major depressive disorder, recurrent episode, moderate 11/30/2011 ??? Anxiety disorder NOS 11/30/2011 ??? ADHD (attention deficit hyperactivity disorder) 11/30/2011 ??? Polysubstance dependence, in full and sustained remission 11/30/2011 ??? Low back pain 11/30/2011 ??? Radiculopathy, L3 11/30/2011 Review of systems: See HPI all others reviewed and negative Adverse Drug Reactions: No known drug allergies Medications: alprazolam, clonazepam, zolpidem, methylprednisolone, citalopram, and bupropion OBJECTIVE: Vital Signs: BP 118/81 Pulse 96 Temp(Src) 36.8 ??C (98.3 ??F) (Oral) Resp 20 General: alert, oriented Eyes: PERRL ENT: Oropharynx: moist mucous membranes CV: RRR, +2 distal pedal pulse bilaterally Resp: lungs cleat to ausculatation bilaterally GI: bowel sounds present, soft, nontender, nondistended, no CVA tenderness Musculoskeletal: No tenderness in thoracic or LS spine to palpation of midline spinous processes, 5/5 strength with leg extension and straight leg raise. 5/5 strength with plantarflexion and dorsiflexion of feet Neuro: sensation intact and equal in lower extremities bilaterally, +2 patellar reflexes Skin: no warmth, erythema, or ecchymosis overlying the back Labs: Labs Reviewed - No data to display ASSESSMENT: 1. Low back pain (724.2A) PLAN: Medications methylPREDNIsolone (MEDROL DOSPACK) 4 mg tablet (not administered) ketorolac (TORADOL) injection 60 mg (60 mg Intramuscular Given 03/31/12 1010) At this point it appears to be an exacerbation of her chronic back pain. She has no neurological deficits on exam. I will give her a Medrol Dosepak and she was also given Toradol 60 mg IM. She has received a fair amount of narcotics in the past and a note from her primary care provider had advised that she not receive further narcotics. I did explain this to her and advised that [facility] for her back pain. documented in this encounter Miscellaneous Notes Medication History - Kal Chavez MD - 03/31/2012 10:11 AM CDT INPATIENT MEDS Encounter Date: 03/31/12 ketorolac (TORADOL) injection 60 mg Start Date:03/31/12, End Date:03/31/12, Frequency:ONCE Taken Dose Action User Route Site Recorded Comment Reason 03/31/12 1010 60 mg Given Katharine Little LPN Intramuscular Gluteus Medius, Right 03/31/12 1011 - - methylPREDNIsolone (MEDROL DOSPACK) 4 mg tablet Start Date:03/31/12, End Date:11/22/12, Frequency:- *No Administrations Recorded documented in this encounter Plan of Treatment Upcoming Encounters Date Type Specialty Care Team Description 09/01/2022 Telemedicine [place] [address] [place], [place] [address] (Wo rk) documented as of this encounter Visit Diagnoses Diagnosis Low back pain documented in this encounter
--- OUTSIDE RECORDS SUMMARY | 2022-08-31 14:59 | XMS_ITS | Encounter Summary ---
:1970 Author Organization [employer] Address [address] [address] Care Team Providers Name Role Phone Padma Srinivasan MD Primary Care Provider Reason for Visit Reason Comments Missed Appointment Encounter Details Date Type Department Care Team Description 02/17/2016 Telephone [place] [facility] [place] [address] [facility] [address] [place] [address] N [phone] [place] [address] Social History Tobacco Use Types Packs/Day Years [...] 09/01/2022 Telemedicine [place] [address] [place], [place] [address] (Wo rk) documented as of this encounter Visit Diagnoses Not on filedocumented in this encounter Care Teams Rubber Belt Splicer Relationship Specialty Start Date End Date Padma Srinivasan MD PCP - General 01/06/16 07/15/19 [address] [place], [place] [id number] documented as of this encounter
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
--- OUTSIDE RECORDS SUMMARY | 2022-08-31 14:59 | XMS_ITS | Encounter Summary ---
:1970 Author Organization [facility] Address [address] [address] Care Team Providers Name Role Phone Padma Srinivasan MD Primary Care Provider Encounter Details Date Type Department Care Team Description 01/12/2016 Imaging [facility] Visit for screening [id number] [place] [address] Social History Tobacco Use Types [...] 09/01/2022 Telemedicine [place] [address] [place], [place] [address] (Wo rk) documented as of this encounter Procedures Procedure Name Priority Date/Time Associated Diagnosis Comme nts MM MAMMOGRAM Routine 01/12/2016 3:02 PM Visit for screening Re sults for this SCREENING BILAT W CDT mammogram procedure are in CAD the results section. documented in this encounter Results MM Mammogram Screening Bilat W CAD (01/12/2016 3:02 PM CDT) Anatomical Region Laterality Modality Breast Bilateral Mammography Specimen (Source) Anatomical Location Collection Method / Collectio n Time Received Time / Laterality Volume Impressions 01/12/2016 3:19 PM CDT : BI-RADS 1 Negative (overall) Follow Up Mammogram in 1 year - Waldemar contreras The results and recommendations of this examination will be communicated to the patient by the [facility] and we will attempt to schedule any recommended imaging follow up with the patient. Narrative 01/12/2016 3:19 PM CDT No comparisons were made when reading this study. This is the patient's baseline mammogram. Bilateral Breast Findings: Bilateral digital screening mammogram wa s performed. There are scattered areas of fibroglandular density in the b reasts. No significant mass, calcifications or o ther abnormalities are seen in either breast. Procedure Note Wilder Ramos MD - 05/18/2016Formatt ing of this note might be different from the original. No comparisons were made when reading th is study. This is the patient's baseline mammogram. Bilateral Breast Findings: Bilateral digital screening mammogram wa s performed. There are scattered areas of fibroglandular density in the b reasts. No significant mass, calcifications or o ther abnormalities are seen in either breast. IMPRESSION : BI-RADS 1 Negative (overall) Follow Up Mammogram in 1 year - Waldemar contreras The results and recommendations of this examination will be communicated to the patient by the [facility] and we will attempt to schedule any recommended imaging follow up with the patient. Padma Srinivasan MD RAD PAULO documented in this encounter Visit Diagnoses Diagnosis Visit for screening mammogram Other screening mammogram documented in this encounter Care Teams Radioactive Waste Disposal Dispatcher Relationship Specialty Start Date End Date Padma Srinivasan MD PCP - General 01/06/16 07/15/19 [address] [place] [address] documented as of this encounter
--- OUTSIDE RECORDS SUMMARY | 2022-08-31 14:59 | XMS_ITS | Encounter Summary ---
:1970 Author Organization [facility] Address [address], [place] [address] Care Team Providers Name Role Phone Non Pn, Clinician Primary Care Provider Unavailable Encounter Details Date Type Department Care Team Description 11/06/2014 Lab Visit [facility] 3850 Encounter for long-term Laboratory (current) use of other [address] [place], [place] [phone] Social History Tobacco Use Types Packs/Day Years [...] 09/01/2022 Telemedicine [place] [address] [place], [place] [address] (Wo rk) documented as of this encounter Procedures Procedure Name Priority Date/Time Associated Diagnosis Comme nts LIPID PANEL AND Routine 11/06/2014 9:55 AM Encounter for Resul ts for this DIRECT LDL(IF PHOTOGRAPHY SALES ASSOCIATE long-term (current) procedu re are in NEEDED) use of other the results medications section. HGB A1C Routine 11/06/2014 9:55 AM Encounter for Results for this PHOTOGRAPHY SALES ASSOCIATE long-term (current) procedur e are in use of other the results medications section. documented in this encounter Results (ABNORMAL) Lipid Panel and Direct LDL(If Needed) (11/06/2014 9:55 AM PHOTOGRAPHY SALES ASSOCIATE) [facility] gist Method Time Signature Cholesterol 140 0 - 200 HP CONVERSION mg/dL Triglycerides 65 0 - 149 HP CONVERSION mg/dL HDL Cholesterol 39 (L) >39 mg/dL HP CONVERSION Cholesterol/HDL 3.6 HP CONVERSION Ratio Screen LDL Calculated 88 19 - 130 HP CONVERSION mg/dL Length Of Fast 12.0 HP CONVERSION Specimen Anatomical Collection Method Collection Time Receive d Time (Source) Location / / Volume Laterality 11/06/2014 9:55 AM 5 9:55 PHOTOGRAPHY SALES ASSOCIATE AM PHOTOGRAPHY SALES ASSOCIATE Narrative HP CONVERSION - 11/06/2014 10:23 AM PHOTOGRAPHY SALES ASSOCIATE Performed at [facility], [address] [place] [address] Edie Rich MD LAB_1 Performing Organization Address [facility] Phon e Number HP CONVERSION Hgb A1c (11/06/2014 9:55 AM PHOTOGRAPHY SALES ASSOCIATE) athologist Signature HGB A1C 5.3 4.0 - 5.6 % HP CONVERSION Specimen Anatomical Collection Method Collection Time Receive d Time (Source) Location / / Volume Laterality 11/06/2014 9:55 AM 5 PHOTOGRAPHY SALES ASSOCIATE 11:01 AM PHOTOGRAPHY SALES ASSOCIATE Narrative HP CONVERSION - 11/06/2014 1:25 PM PHOTOGRAPHY SALES ASSOCIATE Performed at [facility], [address] [place] [id number] Edie Rich MD LAB_1 Performing Organization Address [facility] Phon e Number HP CONVERSION documented in this encounter Visit Diagnoses Diagnosis Encounter for long-term (current) use of other medications documented in this encounter Care Teams Food Service Agent Relationship Specialty Start Date End Date Non Pn, Clinician, PCP - General 01/23/13 01/05/16 [place] [address] documented as of this encounter
--- OUTSIDE RECORDS SUMMARY | 2022-08-31 14:59 | XMS_ITS | Encounter Summary ---
:1970 Author Organization [facility] Address [address], [place] [address] Care Team Providers Name Role Phone Padma Srinivasan MD Primary Care Provider Reason for Visit Reason Comments Shoulder Problem Encounter Details Date Type Department Care Team Description 02/10/2016 Office Visit [place] Edel Velasquez rder of left rotator cuff (Primary Dx); Therapy M, PT Subacromial bursitis, left [address] [place] [address] [address] [phone] [place] [address] Social History Tobacco Use Types Packs/Day Years [...] documented as of this encounter Progress Notes Edel Chacko, PT - 02/10/2016 9:14 PM CDT Encounter date: 02/10/2016 Pt : 1970 [facility] Physical Therapy Progress Note Visit Number: 2 Initial Certification Period: 02/03/2016 to 04/03/16 Referring Provider: Padma Srinivasan Visit Diagnosis: 1. Disorder of left rotator cuff 2. Subacromial bursitis, left (HRC) Precautions: History of anxiety and depression SUBJECTIVE: Pain and level of symptoms are about the same as previously. OBJECTIVE Current Objective Findings: PT Outcomes: PT Program: Musculoskeletal - Shoulder QuickDASH (0-100, 0 being best): 36.4 Left Shoulder AROM? Flexion: 148/164 post manual therapy ? Abduction: 90/120 post manual therapy Left Shoulder PROM? Flexion: 180 ? Abduction: 120 Treatment/Education Today: Therapeutic exercise x 30 minutes: ?? -Measurements above *side lying shoulder external rotation 2#: 1 x 10, fatigued at end of set *sleeper stretch - reviewed form. To aggravated to be on that side *Seated scapular retraction/depression: 1 x 10 *self friction massage - corrected positioning on tendon, self feeling of tenderness *continue with icing *AAROM seated shoulder flexion contralateral arm helping for upper ROM - 1 x 6, visual demo and cuesto just assist lightly with opposite arm *AAROM seated with cane - 1 x 6, visual demo and cues to just assist lightly with opposite arm *Seated resisted blue band ER/IR: 1 x 10, visual demo and tactile cues for positioning *Seated resisted blue band scapular adduction: 1 x 10 resisted blue band and tactile cues for positioning *Seated resisted blue band scapular pull back rows: 1 x 10 resisted blue band and tactile cues for positioning *HEP sheet given for new exercises Manual therapy x 10 minutes: ?? -Gr3-4 anterior posterior glenohumeral mobilization -Soft tissue mobilization of pectoralis minor CYNTHIA with more focus on L Not completed: -HVLA thrust in prone to mid thoracic with several cavitations Timed Code Treatment Minutes: 40 Total Treatment Minutes: 43 Current Home Exercise Program List: *side lying shoulder external rotation 2#: 1 x 10, fatigued at end of set *sleeper stretch - reviewed form. Too aggravated to be on that side *Seated scapular retraction/depression: 1 x 10 *self friction massage - corrected positioning on tendon, self feeling of tenderness *continue with icing *AAROM seated shoulder flexion contralateral arm helping for upper ROM - 1 x 6, visual demo and cuesto just assist lightly with opposite arm *AAROM seated with cane - 1 x 6, visual demo and cues to just assist lightly with opposite arm *Seated resisted blue band ER/IR: 1 x 10, visual demo and tactile cues for positioning *Seated resisted blue band scapular adduction: 1 x 10 resisted blue band and tactile cues for positioning *Seated resisted blue band scapular pull back rows: 1 x 10 resisted blue band and tactile cues for positioning ASSESSMENT/PROGRESS TOWARD GOALS: Patient has increased stretch with ER exercises. She has weakness in lower trapezius with overhead/lifting activities felt via of palpation of that muscle during exercises. Decreased tension of pectoralis minor, in addition to inferior glenohumeral joint glides, improved shoulder flexion and abductionROM after manual therapy. Patient is isometrically and eccentrically contract with shoulder flexion and abduction without increased symptoms. Functional Goals/Outcomes: HEP/Independent Management:? Demonstrate independence with HEP and self- management following eachtreatment session ADL's:? Perform home management tasks with ease in 8 weeks. [place] hair and face in 8 weeks. Reach overhead to put dishes away with ease in 8 weeks Tolerated dressing and hygiene tasks without increased pain in 8 weeks Tolerate lifting without increased pain in 8 weeks Plan: manual therapy and progressing ROM exercises above. Verify improved eccentric contractions. documented in this encounter Plan of Treatment Upcoming Encounters Date Type Specialty Care Team Description 09/01/2022 Telemedicine [place] [address] [place], [place] [address] (Wo rk) documented as of this encounter Visit Diagnoses Diagnosis Disorder of left rotator cuff - Primary Disorders of bursae and tendons in shoul zafar region, unspecified Subacromial bursitis, left documented in this encounter Care Teams Dredge Mate Relationship Specialty Start Date End Date Padma Srinivasan MD PCP - General 01/06/16 07/15/19 [address] [place] [address] documented as of this encounter
--- OUTSIDE RECORDS SUMMARY | 2022-08-31 14:59 | XMS_ITS | Encounter Summary ---
:1970 Author Organization [facility] Address [address], [place] [address] Care Team Providers Name Role Phone Padma Srinivasan MD Primary Care Provider Reason for Visit Reason Comments Shoulder Problem Encounter Details Date Type Department Care Team Description 02/10/2016 Notes/Orders [place] [facility] Mami Miller Di sorder of left Therapy PT rotator cuff (Primary [address] [place]x) [place] [address] [place], [place] [phone] (Wo rk) Social History Tobacco Use Types [...] encounter Progress Notes Mami Ayon, PT - 04/13/2016 11:47 AM CDT Encounter Date: 02/10/2016 Pt : 1970 [facility] Physical Therapy Discharge Summary Patient was seen for therapy from 02/03/2016 through 02/10/2016. Patient did not return for follow up care as planned, so unable to determine patient's current level of function. Total Visits: 2 Reason for discharge: Patient has not been consistent with attendance and/or failed to schedule appointments as planned. Outcome measures at discharge: PT Program:Musculoskeletal - Shoulder QuickDASH (0-100, 0 being best): 36.4 Attainment of goals: Status Unknown The following is a review of the therapy goals: HEP/Independent Management:? Demonstrate independence with HEP and self- management following eachtreatment session ADL's:? Perform home management tasks with ease in 8 weeks. [place] hair and face in 8 weeks. Reach overhead to put dishes away with ease in 8 weeks Tolerated dressing and hygiene tasks without increased pain in 8 weeks Tolerate lifting without increased pain in 8 weeks Discharge recommendations: Patient will continue to work independently with home program/self management strategies. documented in this encounter Plan of Treatment Upcoming Encounters Date Type Specialty Care Team Description 09/01/2022 Telemedicine [place] [address] [place], [place] [address] (Wo rk) documented as of this encounter Visit Diagnoses Diagnosis Disorder of left rotator cuff - Primary Disorders of bursae and tendons in shoul zafar region, unspecified documented in this encounter Care Teams Pocket Stitcher Relationship Specialty Start Date End Date Padma Srinivasan MD PCP - General 01/06/16 07/15/19 [address] [place] [address] documented as of this encounter
--- OUTSIDE RECORDS SUMMARY | 2022-08-31 14:59 | XMS_ITS | Encounter Summary ---
:1970 Author Organization [facility] Address [address], [place] [address] Care Team Providers Name Role Phone Padma Srinivasan MD Primary Care Provider Reason for Visit Reason Comments Annual Exam Encounter Details Date Type Department Care Team Description 02/01/[address] [facility] [address] Padma Srinivasan Ann uaben physical exam (Primary Dx); Family Medicine Disorder of left rotator cuff; [address] Sub acromial bursitis, left; [address] Major depressive disorder, recurrent epi sode with seasonal pattern (HRC); [facility], In somnia, unspecified type; [address] [place] [address] Need for tetanus booster; [phone] (Wo rk) Screening for hyperlipidemia; Screening for diabetes mellitus; Screening for t hyroid disorder Social History Tobacco Use Types Packs/Day [...] Sign Reading Time Taken Comments Blood Pressure 120/66 02/01/2016 1:29 PM CDT Pulse 96 02/01/2016 1:29 PM CDT Temperature - - Respiratory Rate - - Oxygen Saturation - - Inhaled Oxygen Concentration - - Weight 94.3 kg (208 lb) 02/01/2016 1:29 PM CDT Height 180.5 cm (5' 11.06) 02/01/2016 1:29 PM CDT Body Mass Index 28.96 02/01/2016 1:29 PM CDT documented in this encounter Progress Notes Padma Zuluaga MD - 02/01/2016 2:32 PM CDT Preventive Exam & Pelvic SUBJECTIVE: Rajesh Caba is a 45 y.o. who presents for a routine preventive physical exam. She follows with [facility], and cutting back on her Percocet. She notes she hasbeen having issues with her left shoulder for the past few months. She averages 3 percocet/day, using Voltaren gel 2 times a day. She will take Ibuprofen as needed, icing as needed. She uses Duonebs as needed, where she will have a cold that goes straight to her chest, she will start using, only as needed. She is not taking any medication for concern for possible asthma. She notesshe has never been formally tested. When she is well, she does not use the inhaler. She notes she has been having left shoulder pain for the past few months, where she will have pain right under the shoulder bone, radiating down her left arm to the elbow, when she reaches and abducts her arm picking up a light object, and also worst pain when trying to internally rotate and unlatch her bra. She notes the pain is sharp, severe when it comes, however she does not have pain at all times. She does have pain worse at night. She is taking Percocet for other pain which does not really help. She is not taking any other pain medication for the pain. She denies any other numbness, tingling,weakness. She denies any other redness, swelling, or other inflammation noted. She has full range ofmotion of her shoulder, but notes painful with reaching behind her back. She denies recent new activities, no previous history of trauma or injury known. Past Medical/Surgical History: Past Medical History Diagnosis Date ??? Depression ??? Anxiety (HRC) ??? Major depressive disorder, recurrent episode, moderate (HRC) 11/30/2011 ??? Anxiety disorder NOS 11/30/2011 ??? ADHD (attention deficit hyperactivity disorder) (HRC) 11/30/2011 ??? Polysubstance dependence, in full and sustained remission 11/30/2011 ??? Low back pain (HRC) 11/30/2011 ??? Radiculopathy, L3 11/30/2011 ??? Insomnia, unspecified 08/02/2013 Past Surgical History Procedure Laterality Date ??? Hernia repair 1975 ??? Hx appendectomy 1984 ??? Lung surgery 1989 Spontaneous , treated with scarring therapy Patient's active medical problems were reviewed and updated on the Health Profile screen in [facility]. Fur Tailor History: /Para: Last Pap Smear: 2014, normal Pap. 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 Current Contraceptive Method: DepoProvera Adverse Drug Reactions:Review of patient's allergies indicates no known allergies. Pt's Adverse Drug Reactions were reviewed today, and updated on the Health Profile in [facility]. Current Medications: Outpatient Prescriptions Prior to Visit Medication Sig Note Dispense Refill ??? albuterol-ipratropium (DUO-NEB) 3 mg(2.5 mg base)-0.5mg/3 mL nebulizer solution 02/05/2015: Received from: External Pharmacy 0 ??? ALPRAZolam (XANAX) 0.5 mg tablet Take 1 tablet by mouth daily as needed. each refill must last 30 days - no early refills 30 tablet 5 ??? ARIPiprazole (ABILIFY) 10 mg tablet Take 1 tablet by mouth daily (every 24 hours). 30 tablet 5 ??? buPROPion (WELLBUTRIN SR) 200 mg 12 hr tablet Take 1 tablet by mouth 2 times daily. 60 tablet 5 ??? clonazePAM (KLONOPIN) 2 mg tablet Take 1 tablet by mouth at bedtime as needed (anxiety/sleep). Each refill must last 30 days - no early refills. 30 tablet 5 ??? cyclobenzaprine (FLEXERIL) 10 mg tablet 01/26/2016: Received from: External Pharmacy 0 ??? methylphenidate (RITALIN) 20 mg tablet Take 1 tablet by mouth 3 times daily. 90 tablet 0 ??? oxyCODONE-acetaminophen (PERCOCET) 10-325 mg per tablet 02/05/2015: Received from: External Pharmacy ??? PROAIR HFA 90 mcg/actuation inhaler 02/05/2015: Received from: External Pharmacy 0 ??? VOLTAREN 1 % Gel 02/05/2015: Received from: External Pharmacy ??? zolpidem (AMBIEN) 10 mg tablet Take 0.5-1 tablets by mouth at bedtime as needed for Sleep. 30 tablet 5 No facility-administered medications prior to visit. Reviewed today and updated on Health Profile in [facility]. Family History: (First degree family members) Family history was reviewed today and, except as noted, was found to be negative. No breast CA. No DVT/pulmonary embolism. No hypothyroidism. No osteoporosis. Family History Problem Relation Age of Onset ??? Anesth Problems Neg Hx ??? Broken Bones Neg Hx ??? Clotting Disorder Neg Hx ??? Heart Disease Neg Hx ??? Osteoporosis Neg Hx ??? Rheumatologic Disease Neg Hx ??? Cancer, Breast Neg Hx ??? Cancer, Ovarian Maternal Aunt ??? Diabetes Father Retinopathy, Neuropathy ??? Stroke Father ??? Kidney Disease Father Kidney transplant, 2/2 cancer ??? Brain Aneurysm Father ??? 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 She has 4 daughters, ages 21, 19, 9 and 5 years old. Sexual History: Monogamous. Habits: History Substance Use Topics ??? Smoking status: Never Smoker ??? Smokeless tobacco: Not on file ??? Alcohol Use: Yes Comment: 1 every 4-6 months Preventive Health Assessment: Preventive Health screen was reviewed and updated today in [facility]. Calcium intake is adequate. Exercise is adequate. Recent lipid screen has been performed. The patient practices safe sex. Seatbelts are used at all times. Sun protection is used. Tetanus immunization is up-to-date, Tdap 02/01/2016. Colonoscopy testin, but had inadequate prep. Follow up screening due q 5 years due to father with history colon cancer in his 40s. Mammogram 01/12/2016, normal. Plans yearly. Review of Systems: With the exception of any items noted above, the remainder of the complete ROS is negative. OBJECTIVE: Vital Signs: BP 120/66 mmHg Pulse 96 Ht 5' 11.06 (1.805 m) Wt 208 lb (94.348 kg) BMI 28.96 kg/m2 General: Patient alert, in NAD. HEENT: PERRLA, EOMI, without scleral icterus or conjunctivitis present. Bilateral TM's, external canals, nasopharynx without erythema or hypertrophy, oropharynx normal without erythema or exudate. Neck: Supple, without thyromegaly or mass. Upper Extremities: FROM with good strength, no lesions or deformities. CV: RRR without murmurs, rubs or gallops. Resp: Clear to auscultation without crackles, wheezes or distress. Abdomen: Soft, non-tender, without hepatosplenomegaly, masses, or hernias. Breasts: Symmetrical, nontender, without masses or nipple discharge. Lymphatic: No neck, supraclavicular, axillary or groin lymphadenopathy. Lower Extremities: FROM, normal gait without edema, lesions, or deformity. Pelvic: External normal without lesions. Vagina reveals healthy mucosa with no vaginal or cervical lesions, and no abnormal discharge. Bimanual reveals uterus to be mobile, normal size, shape and consistency. No adnexal masses or tenderness. Rectal: Normal tone, no mass. Skin: No lesions. Neuro: CN II-XII, motor & sensory function all intact. Psychiatric: Alert & oriented with normal affect and insight. Patient does not appear depressed or anxious. ASSESSMENT: Immunizations reviewed and updated in Health Profile in [facility]. Pt. is up to date. See Problem List on Patient Health Profile ICD-10-CM ICD-9-CM 1. Annual physical exam Z00.00 V70.0 2. Screening for diabetes mellitus Z13.1 V77.1 Hemoglobin A1C Glycosylated 3. Screening for hyperlipidemia Z13.220 V77.91 Chol, HDL, LDL Non-Fasting 4. Screening for thyroid disorder Z13.29 V77.0 TSH And Free T4 (FRT4 If TSH Abnorm) 5. Need for tetanus booster Z23 V03.7 Tdap (BOOSTRIX) 6. Disorder of left rotator cuff M67.912 726.10 PHYSICAL THERAPY CONSULT ADULT/PEDS (AMB) 7. Subacromial bursitis, left ([facility]) M75.52 726.19 PHYSICAL THERAPY CONSULT ADULT/PEDS (AMB) PLAN: Pap Smear completed at [facility] in [place] in 2014, [facility]. [facility] 1 year, sooner PRN any concerns. Prescriptions provided, see OP Med list on Health Profile in [facility]. Chronic pain, low back pain with radiculopathy currently followed with pain clinic. Follow-up per pain clinic. She plans to taper her Percocet use. Left shoulder rotator cuff tendinopathy with subacromial bursitis. Will send to physical therapy forfurther evaluation and treatment. Could consider steroidal injection of the subacromial bursitis if not improving with therapy. Follow-up in 6-8 weeks with plan for x-ray if not improving, could consider referral to orthopedics and possible MRI reported. Reviewed with patient and today which they understand and agree. May continue [id number] analgesia 6 such as Advil 4-600 mg 3 times daily as needed for pain. Reviewed risks, benefits and side effects medication. Bronchospasm. In relation to illness only. This does sound like mild, intermittent asthma, with trigger of upper respiratory infection, although no formal testing has been taken. At this point in time since she is asymptomatic, not using medication, will monitor. Would consider formal pulmonary function testing if she presents with recurrent symptoms. Prescription for albuterol alone rather than do nebs given today. She will follow-up if she has acute symptoms, otherwise as needed and in one year. History of depression and anxiety, insomnia. Currently followed with Dr. Rich in psychiatry. Follow-up per psychiatry. Labs: Pending. We will mail lab results to patient. Patient will call if no lab results received within one month. Preventive health counseling provided: Weight management, regular daily exercise, balanced diet, calcium and vitamin D3 supplementation, safer sex practices, using sunscreen regularly, self breast examination, regular screening exams. Contraception: Risks, benefits, and alternatives for use were discussed. Patient will continue with Depo-Provera per her ObGyn. documented in this encounter Plan of Treatment Upcoming Encounters Date Type Specialty Care Team Description 09/01/2022 Telemedicine [place] [address] [place], [place] [address] (Wo rk) documented as of this encounter Visit Diagnoses Diagnosis Annual physical exam - Primary Routine general medical examination at a health care facility Disorder of left rotator cuff Disorders of bursae and tendons in shoul zafar region, unspecified Subacromial bursitis, left Major depressive disorder, recurrent epi sode with seasonal pattern (HRC) Insomnia, unspecified type Need for tetanus booster Need for prophylactic vaccination with t etanus toxoid alone Screening for hyperlipidemia Screening for lipoid disorders Screening for diabetes mellitus Screening for thyroid disorder documented in this encounter Care Teams Variety Performer Relationship Specialty Start Date End Date Padma Srinivasan MD PCP - General 01/06/16 07/15/19 [address] [place] [id number] documented as of this encounter
--- OUTSIDE RECORDS SUMMARY | 2022-08-31 14:59 | XMS_ITS | Encounter Summary ---
:1970 Author Organization [facility] Address [address] [address] Care Team Providers Name Role Phone Unavailable Primary Care Provider Unavailable Reason for Visit Reason Comments Back Pain Encounter Details Date Type Department Care Team Description 02/15/2012 Office Visit [facility] Canceled [address] [place], [place] [address] Social History Tobacco Use Types [...] Sign Reading Time Taken Comments Blood Pressure 101/67 02/15/2012 10:29 AM CDT Pulse 94 02/15/2012 10:29 AM CDT Temperature 36.8 ??C (98.2 ??F) 02/15/2012 10:29 AM CDT Respiratory Rate - - Oxygen Saturation - - Inhaled Oxygen Concentration - - Weight 81.6 kg (180 lb) 02/15/2012 10:29 AM CDT Height 182.9 cm (6') 02/15/2012 10:29 AM CDT Body Mass Index 24.41 02/15/2012 10:29 AM CDT documented in this encounter Plan of Treatment Upcoming Encounters Date Type Specialty Care Team Description 09/01/2022 Telemedicine [place] [address] [place], [place] [address] (Wo rk) documented as of this encounter Visit Diagnoses Not on filedocumented in this encounter
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
--- OUTSIDE RECORDS SUMMARY | 2022-08-31 14:59 | XMS_ITS | Encounter Summary ---
:1970 Author Organization [facility] Address [address] [address] Care Team Providers Name Role Phone Padma Srinivasan MD Primary Care Provider Reason for Visit Reason Comments Injection Encounter Details Date Type Department Care Team Description 02/23/2016 Telephone [facility] [address] Padma Garza MD Injection Medicine [address] [place] [address] [phone] (Wo rk) Social History Tobacco Use Types [...] as of this encounter Nursing Notes Payton Daniel - 02/25/2016 9:21 AM CDT contacted pt and she will call back at a later time to schedule OLOGIC TECHNICIAN Padma Zuluaga MD - 02/24/2016 11:45 PM CDT Would recommend referral to Orthopedics for evaluation. Please call patient to notify, referral entered. Sheron Dotson RN - 02/23/2016 9:53 AM CDT Reason for Call: New order requested. Next Steps: Document further recommendations and route to appropriate person or pool. Caller IS expecting a call back from Care Team. Route to Frontline pool to schedule an appointment. Additional Information: Pt is requesting to discuss getting cortisone injection to shoulder since PThas not been helping. Routing to PCP to advise. Lucho Blanton - 02/23/2016 9:36 AM CDT Pt states she has been doing the PT for her shoulder and does not feel it is helping with the pain, Pt would like to discuss getting a cortisone injection please advise OLOGIC TECHNICIAN documented in this encounter Plan of Treatment Upcoming Encounters Date Type Specialty Care Team Description 09/01/2022 Telemedicine [place] [address] [place], [place] [address] (Wo rk) documented as of this encounter Visit Diagnoses Diagnosis Disorder of left rotator cuff - Primary Disorders of bursae and tendons in shoul zafar region, unspecified documented in this encounter Care Teams Hinging Machine Operator Relationship Specialty Start Date End Date Padma Srinivasan MD PCP - General 01/06/16 07/15/19 [address] [place] [address] documented as of this encounter
--- NOTE | 2022-08-31 15:00 | ED.NURSE ---
Pt still satting mid-80's%, titrated up to 3L O2 NC.
--- OUTSIDE RECORDS SUMMARY | 2022-08-31 15:00 | XMS_ITS | Encounter Summary ---
:1970 Author Organization [facility] Address [address], [place] [address] Care Team Providers Name Role Phone Unavailable Primary Care Provider Unavailable Reason for Visit Reason Comments Refill Encounter Details Date Type Department Care Team Description 09/14/2011 Refill [facility] Wang, Dennis P, OA Refill [address] [place], [place] [address] [address] [place] [address] [phone] (Wo rk) Social History Tobacco Use Types [...] 09/01/2022 Telemedicine [place] [address] [place], [place] [address] (Wo rk) documented as of this encounter Visit Diagnoses Not on filedocumented in this encounter
--- OUTSIDE RECORDS SUMMARY | 2022-08-31 15:00 | XMS_ITS | Encounter Summary ---
:1970 Author Organization [employer] Address [address] [address] Care Team Providers Name Role Phone Unavailable Primary Care Provider Unavailable Reason for Visit Reason Comments CONGESTION, NASAL Encounter Details Date Type Department Care Team Description 02/07/2012 Hospital Encounter [place] [address] Bhanu Weaver i, Sinus congestion Urgent Care [address] [facility] [address] [place] [address] [phone] Social History Tobacco Use Types Packs/Day Years [...] Sign Reading Time Taken Comments Blood Pressure 126/69 02/07/2012 12:05 PM CDT Pulse 88 02/07/2012 12:05 PM CDT Temperature 37.3 ??C (99.1 ??F) 02/07/2012 12:05 PM CDT Respiratory Rate 16 02/07/2012 12:05 PM CDT Oxygen Saturation - - Inhaled Oxygen Concentration - - Weight - - Height - - Body Mass Index - - documented in this encounter Medications at Time of Discharge Medication Sig Dispensed Refills Start Date End Date ALPRAZolam (AKA XANAX) Take 1 tablet by 30 tablet 2 012 03/27/2012 0.5 MG tablet mouth daily as needed. Indications: ANXIETY amoxicillin (aka AMOXIL) Take 1 tablet by 20 tablet 0 02/0602/28/2012 tablet mouth 2 times daily. buPROPion (AKA Take 1 tablet by 60 tablet 1 01/31/201203/18 WELLBUTRIN SR) 200 MG 12 mouth 2 times daily. hour release tablet citalopram (AKA CELEXA) Take 1 tablet by 30 tablet 2 201102/28/2012 40 MG tablet mouth daily (every 24 hours). clonazePAM (AKA Take 1 tablet by 0 12/29/201112/2011 KLONOPIN) 1 MG tablet mouth at bedtime as needed (anxiety/sleep). zolpidem (AKA AMBIEN) 10 Take 1 tablet by 30 tablet 2 11/2902/28/2012 MG tablet mouth at bedtime as needed. Indications: INSOMNIA documented as of this encounter ED Notes Bhanu Weaver MD - 02/07/2012 9:45 PM CDT ED Provider Notes signed by Aundrea Weaver MD at 02/13/122056 Author: Aundrea Weaver MD Service: (none) Author Type: Physician Filed: 02/13/122056 Note Time: 02/07/122144 Status: Signed Heeler Machine: Aundrea Weaver MD (Physician) NAME: RAJESH STEVENS MR#: [id number] CSN: [id number] AUTHENTICATING CLINICIAN: Aundrea Weaver MD CONFIRM #: [id number] LOC: 420 URGENT CARE PROGRESS NOTE DATE OF VISIT: 02/07/2012 : 1970 A 41-year-old pleasant patient presented for evaluation of a 2-week history of being sick. During the past week or so, she has been getting worse. She is complaining of headache, facial pain, ear pain, green drainage from the nose. She has been taking Sudafed, but not that much. She has a history of sinusitis. REVIEW OF SYMPTOMS: Otherwise unremarkable. ALLERGIES: I reviewed Epic. MEDICATIONS/PAST MEDICAL HISTORY: I reviewed Epic. OBJECTIVE: VITAL SIGNS: I reviewed Epic. She is not in acute distress. Eyes normal. Ears normal. Nose congested. She has some tenderness of the maxillary sinuses. Throat is not red. NECK: Supple. CHEST: Clear to auscultation. HEART: Regular rhythm. ASSESSMENT: Upper respiratory infection with possible sinusitis. I advised the patient to take Sudafed 30 mg every 4 hours, use normal saline nasal spray, drink more liquid. I wrote a prescription for amoxicillin 875 mg, 20 of those, that in case of getting worse after a few days, she will try this medication. Recommended to see primary physician in case of having more problems. AA:MEDQ C: CONFIRM #: [id number] Bhanu Weaver MD - 02/07/2012 1:02 PM CDT ED Provider Notes signed by Aundrea Weaver MD at 02/08/12 08 Author: Aundrea Weaver MD Service: (none) Author Type: Physician Filed: 02/08/1241 Note Time: 02/07/121301 Status: Signed Heeler Machine: Aundrea Weaver MD (Physician) NAME: RAJEHS STEVENS MR#: [id number] CSN: [id number] AUTHENTICATING CLINICIAN: Aundrea Weaver MD CONFIRM #: [id number] LOC: 420 URGENT CARE PROGRESS NOTE DATE OF VISIT: 02/07/2012 : 1970 A 41-year-old, pleasant patient presented for evaluation of facial pain, headache, ear pain, runny nose, discolored drainage from the nose. Apparently she has had a cold for 2 weeks. During the past week she began having this new symptom. She has been taking 12 hour Sudafed. No normal saline nasal spray. She has had sinusitis in the past. REVIEW OF SYSTEMS: Otherwise unremarkable. ALLERGIES: I reviewed [facility]. MEDICATIONS: I reviewed [facility]. PAST MEDICAL HISTORY: I reviewed [facility]. EXAMINATION: VITAL SIGNS: I reviewed Epic. She is not in acute distress. Eyes normal. Ears normal. Nose congested. Mild tenderness of the maxillary sinuses. Throat is not red. NECK: Supple. CHEST: Clear to auscultation. ASSESSMENT/DIAGNOSIS: Sinus congestion. Advised the patient to use normal saline, take Sudafed 30 mg every 4 hours, wait for a few days. I wrote a prescription for amoxicillin 875 mg just in case, and that if it is not improving or getting worse after a few days recommended to take this medication as directed. See primary physician if needed. [facility]:MEDQ C: CONFIRM #: [id number] documented in this encounter Miscellaneous Notes Medication History - Kal Chavez MD - 02/07/2012 12:24 PM CDT INPATIENT MEDS Encounter Date: 02/07/12 amoxicillin (AMOXIL) 875 mg tablet Start Date:02/07/12, End Date:02/28/12, Frequency:2 TIMES DAILY *No Administrations Recorded documented in this encounter Plan of Treatment Upcoming Encounters Date Type Specialty Care Team Description 09/01/2022 Telemedicine [place] [address] [place], [place] [address] (Wo rk) documented as of this encounter Visit Diagnoses Diagnosis Sinus congestion Other diseases of nasal cavity and sinus es documented in this encounter
--- OUTSIDE RECORDS SUMMARY | 2022-08-31 15:00 | XMS_ITS | Encounter Summary ---
:1970 Author Organization [employer] Address [address] [address] Care Team Providers Name Role Phone Unavailable Primary Care Provider Unavailable Reason for Visit Reason Comments Refill Encounter Details Date Type Department Care Team Description 11/11/2011 Refill [facility] Dior Casillas, JACQUELINE Refill [address] [place] [address] [address] [place] [address] [phone] (Wo rk) Social History Tobacco Use Types [...] documented as of this encounter Nursing Notes Dior Cadena PA-C - 11/14/2011 8:20 AM CST Pt is supposed to be weaning per Dr. Smith. THIS IS THE LAST REFILL. GENERATION REPRESENTATIVE AdriannayulianaLora - 11/11/2011 8:14 AM CST Rajesh is requesting a refill on her Percocet. She will be leaving town on Monday and would like to pick it up before then. GENERATION REPRESENTATIVE documented in this encounter Plan of Treatment Upcoming Encounters Date Type Specialty Care Team Description 09/01/2022 Telemedicine [place] [address] [place], [place] [address] (Wo rk) documented as of this encounter Visit Diagnoses Not on filedocumented in this encounter
--- OUTSIDE RECORDS SUMMARY | 2022-08-31 15:00 | XMS_ITS | Encounter Summary ---
:1970 Author Organization [employer] Address [address] [address] Care Team Providers Name Role Phone Unavailable Primary Care Provider Unavailable Encounter Details Date Type Department Care Team Description 05/29/2009 Office Visit [facility] re Brian Tellez, PAVenessaC [address] [address] [place] [address] [place] [address] [phone] (Wo rk) Social History Tobacco Use Types [...] Sign Reading Time Taken Comments Blood Pressure 118/67 05/29/2009 6:43 PM CDT Pulse 75 05/29/2009 6:43 PM CDT Temperature 36.9 ??C (98.4 ??F) 05/29/2009 6:43 PM ORAL C: 3 6.9 C CDT Respiratory Rate 14 05/29/2009 6:43 PM CDT Oxygen Saturation - - Inhaled Oxygen Concentration - - Weight - - Height - - Body Mass Index - - documented in this encounter Progress Notes Brian Tellez PA-C - 05/29/2009 12:01 AM CDT Progress Notes signed by Brian Tellez PA-C at 05/29/092047 Author: Brian Tellez PA-C Service: (none) Author Type: Physician Shelver Filed: 01/08/11 3242 Note Time: 05/29/09 0001 Status: Signed Lead Architect: Brian Tellez PA-C (Resource) SUBJECTIVE: Rajesh is a 38-year-old female presenting to urgent care for evaluation of right upper back and neck pain. Symptoms started two days ago after lifting some heavy boxes. No numbness or tingling. She does, however, state that she gets some pain radiating down to the elbow on the right. No loss of function or tone. Range of motion of the neck and right shoulder are uncomfortable. No left-sided pain. She is not sleeping well. Treating with ibuprofen at home. Past Medical History: See EMR Adverse Drug Reactions: NKDA See EMR. Medications: Reviewed. See Medication List in LastWord. Social history: See EMR. Review of Systems: Complete review of systems is negative other than pertinent positives any subjective. OBJECTIVE: Vital Signs : Reviewed; See Flowsheet Charting in LastWord. General: NAD Skin: Mucous membranes are moist, no lesions. No bruising. Musculoskeletal: Tenderness is noted at the right base of the skull. No bruising. cervical range of motion is limited secondary to pain. The patient has palpable tenderness along the right cervical paraspinous muscles. The patient has tenderness to palpation over right trapezius. Upper extremity strength is normal. Sensation is intact bilaterally. No chest wall tenderness. No low back pain. X-Rays: ASSESSMENT: 1. Right trapezius/ Cervical strain PLAN: I would like her to follow up with [facility] chiropractic services. Referral given. Flexeril, 10 mg at h.s. number 20 given, caution sedation, no work or driving within 8 hours. Naproxen 500 mg one p.o. b.i.d. with food, for daytime pain. Stressed the need for rest, with routine activity at home for one to two days until pain is improving. Apply ice 10 minutes t.i.d.. The patient May also use heat or topical pain medicines. Gradually advance activities as tolerated over the next 7 to 10 days. RTC p.r.n. if not gradually improving. The patient was discharged ambulatory and in stable condition. *SH~DNS~LBP documented in this encounter Plan of Treatment Upcoming Encounters Date Type Specialty Care Team Description 09/01/2022 Telemedicine [place] [address] [place], [place] [address] (Wo rk) documented as of this encounter Visit Diagnoses Not on filedocumented in this encounter
--- OUTSIDE RECORDS SUMMARY | 2022-08-31 15:00 | XMS_ITS | Encounter Summary ---
:1970 Author Organization [employer] Address [address] [address] Care Team Providers Name Role Phone Unavailable Primary Care Provider Unavailable Encounter Details Date Type Department Care Team Description 01/29/2010 [facility] [address] [facility] MD Ehsan [place], [place] [address] [address] [facility] [address] [phone] [place] [address] (Wo rk) Social History Tobacco Use Types [...] documented as of this encounter Progress Notes Luiz Barragan MD - 01/29/2010 12:01 AM CDT Progress Notes signed by Luiz Barragan MD at 02/27/10 9781 Author: Luiz Barragan MD Service: (none) Author Type: Physician Filed: 01/08/11 2226 Note Time: 01/29/10 0001 Status: Signed Housing And Residence Life Director: Luiz Barragan MD (Physician) NAME: RAJESH STEVENS VISIT: [id number] DICTATING CLINICIAN: LUIZ BARRAGAN MD JOB: [id number] LOC: 3711 CLINIC PROGRESS NOTE DATE OF VISIT: 01/29/2010 : 1970 (She is 39 years of age). SUBJECTIVE: Rajesh is seen because of back pain which was precipitated last Monday in the afternoon. She was lifting some boxes and that may have been the precipitating cause. She by Monday could hardly stand or sit because of the discomfort in the back and in the leg. She went to urgent care where she was evaluated, given Decadron 4 mg t.i.d. and Vicodin. By Lopez she was better but since the medication was a tapering dose basis the pain gradually recurred and has progressed significantly with not only low back pain but the left buttock pain as well as the left low back discomfort. The pain radiates down from the buttock into the calf of the leg. There is no numbness or tingling that she notices at this time. She has no bowel and bladder problems. 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 Lying down seems to make her feel better but standing up and sitting seems to make the problem much worse. She rates her pain as a 6/10 when she is up walking. MEDICAL HISTORY: She has no recent fevers or rash. She does have numbness and tingling to some degree in the leg though not specifically with light touch in the distal part of the leg. She has no diabetes, no joint problems. Does not smoke. Does not exercise. Is not a audit clerks supervisor. She has no medical problems. Her previous surgeries include a pneumothoracic, appendectomy, and hernia surgery. She has a family history of diabetes and cancer. 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 OBJECTIVE: Examination reveals a healthy-appearing female who on examination of her lumbar spine notices an ability to forward flex about 35 degrees and extend 15 degrees beyond neutral. Lateral flexion to the right is 25 degrees, normally 45 degrees. Lateral flexion to the left is 35 degrees, normal 45 degrees. The normal flexion is to touch the floor at about 90 degrees. Extension is usually 30 degrees. Rotation to the right is 30 degrees, normally 45 degrees and rotation to the left is 40 degrees, normally 45 degrees. There is spasm in the lumbar muscles, especially on the left side and the paraspinal muscles L3 down to the sacrum and there is tenderness in the lumbar spine in the paraspinal muscles and there is also tenderness in the sciatic notch on the left side. She has straight leg raising on the right to 90 degrees, even with dorsiflexion there is no pain. On the left the straight leg raising is to about 70 degrees in the sitting position with pain in the buttock and down the leg but at 90 if you dorsiflex the foot the pain intensifies significantly. Reflexes in the knees were 2+ on both sides. Reflexes in the ankle, the right ankle was 2+ and the left ankle was absent. IMPRESSION: Herniated disk, probably L5-S1 on the left side. PLAN: The plan is to get an MRI of the lumbar spine as soon as it can be done on Monday and then I would like to have her seen by one of the spine doctors on Monday, if possible, for the consideration for whatever their treatment would be (probably an epidural steroid injection). Since she had already had a Decadron by mouth on a tapering dose basis, I did not give her a Medrol Dosepak at this time. I did give her some pain medication, however; I gave her Flexeril (10 mg) and some Vicodin. We will discharge her today and she will be seen for an MRI on Monday and we will see her later that day if possible. DOCUMENT: [id number] documented in this encounter Plan of Treatment Upcoming Encounters Date Type Specialty Care Team Description 09/01/2022 Telemedicine [place] [address] [place], [place] [address] (Wo rk) documented as of this encounter Visit Diagnoses Not on filedocumented in this encounter
--- OUTSIDE RECORDS SUMMARY | 2022-08-31 15:00 | XMS_ITS | Encounter Summary ---
:1970 Author Organization [employer] Address [address] [address] Care Team Providers Name Role Phone Unavailable Primary Care Provider Unavailable Encounter Details Date Type Department Care Team Description 08/18/2007 Office Visit [facility] re Juan Manuel Maloney, PAVenessaC [address] [address] [place] [address] [place] [address] [phone] (Wo rk) Social History Tobacco Use Types [...] place to sleep or slept in a longterm (including now)? Sex Assigned at Date Recorded Female 04/30/2021 11:10 AM CDT documented as of this encounter Last Filed Vital Signs Vital Sign Reading Time Taken Comments Blood Pressure 108/66 08/18/2007 4:59 PM PRODUCT SAFETY COORDINATOR Pulse 88 08/18/2007 4:59 PM PRODUCT SAFETY COORDINATOR Temperature 36.5 ??C (97.7 ??F) 08/18/2007 4:59 PM PRODUCT SAFETY COORDINATOR C: 36 .5 C Respiratory Rate 16 08/18/2007 4:59 PM PRODUCT SAFETY COORDINATOR Oxygen Saturation - - Inhaled Oxygen Concentration - - Weight - - Height - - Body Mass Index - - documented in this encounter Progress Notes Juan Manuel Maloney PA-C - 08/18/2007 12:01 AM CST Progress Notes signed by Juan Manuel Maloney PA-C at 09/10/07 0818 Author: Juan Manuel Maloney PA-C Service: (none) Author Type: Physician Dramatic Teacher Filed: 01/07/11 2338 Note Time: 08/18/072021 Status: Signed Research Assistant: Juan Manuel Maloney PA-C (Physician Dramatic Teacher) NAME: RAJESH STEVENS MR#: [id number] ACCT: [id number] VISIT: [id number] DICTATING CLINICIAN: JUAN MANUEL MALONEY PA-C JOB: [id number] LOC: 520 CLINIC PROGRESS NOTE DATE OF VISIT: 08/18/2007 SUBJECTIVE: A 37-year-old female presents to Urgent Care for evaluation of right eye pain. The eyes have been bothering her for a couple of weeks, after helping her clean out her brother's garage. She has no specific exposures. Has not had a lot of drainage, but more irritation, soreness, and now more irritation. The irritation and redness has worsened over the last week or so. She has had some mattering. ADR/ALLERGIES: SEE PATIENT HEALTH PROFILE IN LASTWORD. MEDICATIONS: See patient health profile in LastWord. PAST MEDICAL HISTORY: See patient health profile in LastWord. OBJECTIVE: VS: BP: 108/66. T: 97.7. P: 86. R: 16. GENERAL: NAD. HEENT: Head is normocephalic. Eyes: Injection moderately on the right, mildly on the left. Watery discharge. PERRLA. EOMI bilaterally. Fundi are benign. A fluorescein examination was performed and was negative for any fluorescein uptake. She does have pinguecula medially on the right eye. ASSESSMENT: Conjunctivitis (bilateral with right greater than left). PLAN: With the fact she has been having symptoms for a couple weeks and worsening, I did decide to place her on tobramycin ophthalmic suspension 2 drops each eye q.i.d. over 5 days. If she has not improved significantly in 2 days, should follow up with the eye department, sooner if worsening. TJL:[id number] C: 08/21/07 12:13 DOCUMENT: [id number] UCT SAFETY COORDINATOR documented in this encounter Plan of Treatment Upcoming Encounters Date Type Specialty Care Team Description 09/01/2022 Telemedicine [place] [address] [place], [place] [address] (Wo rk) documented as of this encounter Visit Diagnoses Not on filedocumented in this encounter
--- OUTSIDE RECORDS SUMMARY | 2022-08-31 15:00 | XMS_ITS | Encounter Summary ---
:1970 Author Organization [facility] Address [address], [place] [address] Care Team Providers Name Role Phone Unavailable Primary Care Provider Unavailable Reason for Visit Reason Comments Medication Request Encounter Details Date Type Department Care Team Description 10/12/2011 Telephone [facility] Dior Casillas, Medication Request [address] [facility] PA-C [place] [id number] [address] [facility] [phone] [place] [address] (Wo rk) Social History Tobacco Use Types [...] documented as of this encounter Nursing Notes Katie Castano, RN - 10/12/2011 2:58 PM CST Prescription Refills Approved Prescriptions Disp Refills ??? oxyCODONE-acetaminophen (PERCOCET) 5-325 mg per tablet 60 tablet 0 Sig: Take 1-2 tablets by mouth every 4 hours as needed for Pain. Maximum 12 tablets/24 hours Indications: PAIN Authorizing Provider: DIOR CADENA will take to [facility]. Called patient she does not have an appointment with PMR until Oct 24 and wanted Dior to know that. SOFTWARE ENGINEER Dior Cadena PA-C - 10/12/2011 2:52 PM CST Last refill until PMR, or pain clinic SOFTWARE ENGINEER Katie Castano, RN - 10/12/2011 2:36 PM CST 2nd call...Patient called would like Paper script today. Prescription Refills Pending Prescriptions Disp Refills ??? oxyCODONE-acetaminophen (PERCOCET) 5-325 mg per tablet 60 tablet 0 Sig: Take 1-2 tablets by mouth every 4 hours as needed for Pain. Maximum 12 tablets/24 hours Indications: PAIN SOFTWARE ENGINEER Darshana Malone - 10/12/2011 8:08 AM CST Patient would like a refill of Percocet. You referred her to Physical Medicine however they are booked until 10/24/11. She would like enough to get her by until then. She can be reached at [phone]. Thanks! SOFTWARE ENGINEER documented in this encounter Plan of Treatment Upcoming Encounters Date Type Specialty Care Team Description 09/01/2022 Telemedicine [place] [address] [place], [place] [address] (Wo rk) documented as of this encounter Visit Diagnoses Diagnosis Low back pain radiating to left leg - Pr imary Lumbago documented in this encounter
--- OUTSIDE RECORDS SUMMARY | 2022-08-31 15:00 | XMS_ITS | Encounter Summary ---
:1970 Author Organization [facility] Address [address] [address] Care Team Providers Name Role Phone Unavailable Primary Care Provider Unavailable Reason for Visit Reason Comments CONSULT Encounter Details Date Type Department Care Team Description 08/29/2011 Surgical Consult [facility] Dior Jensen L back [facility] PA-C radiating to left [address] [facility] [address] [facility] leg (Primary Dx) [place] [address] [phone] Social History Tobacco Use Types Packs/Day Years [...] - Inhaled Oxygen Concentration - - Weight 77.1 kg (170 lb) 08/29/2011 10:40 AM SCREW EYE ASSEMBLER Height 182.9 cm (6') 08/29/2011 10:40 AM SCREW EYE ASSEMBLER Body Mass Index 23.06 08/29/2011 10:40 AM SCREW EYE ASSEMBLER documented in this encounter Progress Notes Michael Varghese RN - 09/26/2011 2:15 PM SCREW EYE ASSEMBLER Addended by: MICHAEL VARGHESE on: 09/26/2011 Modules accepted: Orders W EYE ASSEMBLER Dior Jensen PA-C - 08/29/2011 12:30 PM CST Progress Notes signed by Dior Jensen PA-C at 08/30/11824 Author: Dior Jensen PA-C Service: (none) Author Type: Physician Spinning Machine Tender Filed: 08/30/11 0404 Note Time: 08/29/11 123 Status: Signed Arabic Professor: Dior Jensen PA-C (Physician Spinning Machine Tender) NAME: RAJESH STEVENS VISIT: [id number] DICTATING CLINICIAN: DIOR JENSEN PA-C JOB: [id number] [facility] JOB: [id number] LOC: 3711 CLINIC PROGRESS NOTE DATE OF VISIT: 08/29/2011 : 1970 This is a 41-year-old female known to me as the of one of my established patients. She comes in today with the chief complaint of left-sided low back pain radiating down the anteromedial aspect of the thigh, stopping at the knee. The symptoms were present last year in 01/2010 and then resolved, however, they reoccurred a few weeks ago. She was seen by Dr. Schwarz of the [facility] in July and given a Medrol Dosepak which helped with her discomfort. She is still having left-sided low back pain. She notes no lower extremity weakness. PHYSICAL EXAMINATION: On examination, gait and station is normal. Muscle strength is intact. Sensation is intact. IMAGING: MRI from 01/2010 is reviewed with the patient present. She has a lateral disk protrusion at L2-3 with an annular tear. She also has an annular tear laterally at L3-4 contacting the left L3 nerve root. ASSESSMENT: L3 radiculopathy, lateral disk protrusions at L2-3 and L3-4 contacting the left L3 nerve root. PLAN: I will trial a left L3-4 transforaminal injection and see her back a week afterwards. Refills of Percocet and Valium were given at today's appointment. Body mechanics were discussed. IM: MT: 25 W EYE ASSEMBLER documented in this encounter Plan of Treatment Upcoming Encounters Date Type Specialty Care Team Description 09/01/2022 Telemedicine [place] [address] [place], [place] [address] (Wo rk) documented as of this encounter Visit Diagnoses Diagnosis Low back pain radiating to left leg - Pr imary Lumbago documented in this encounter
--- OUTSIDE RECORDS SUMMARY | 2022-08-31 15:00 | XMS_ITS | Encounter Summary ---
:1970 Author Organization [facility] Address [address], [place] [address] Care Team Providers Name Role Phone Unavailable Primary Care Provider Unavailable Reason for Visit Reason Comments LAB RESULTS Encounter Details Date Type Department Care Team Description 07/12/2011 Telephone [facility] Yeimi Martin MD LAB RESULTS [address] [place] [address] [place] [address] [phone] (Wo rk) Social History Tobacco Use Types [...] documented as of this encounter Nursing Notes Emily Brennan - 07/12/2011 11:16 AM CDT Spoke with pt. Requesting lab results. Read pt her lab results, all of which were in the normal range. Pt has no further questions or concerns at this time. documented in this encounter Plan of Treatment Upcoming Encounters Date Type Specialty Care Team Description 09/01/2022 Telemedicine [place] [address] [place], [place] [address] (Wo rk) documented as of this encounter Visit Diagnoses Not on filedocumented in this encounter
--- OUTSIDE RECORDS SUMMARY | 2022-08-31 15:00 | XMS_ITS | Encounter Summary ---
:1970 Author Organization [facility] Address [address], [place] [address] Care Team Providers Name Role Phone Unavailable Primary Care Provider Unavailable Encounter Details Date Type Department Care Team Description 05/29/2009 PN Conversion Only [place] [address] [address] [place] [address] Social History Tobacco Use Types Packs/Day Years [...] 09/01/2022 Telemedicine [place] [address] [place], [place] [address] (Wo rk) documented as of this encounter Visit Diagnoses Not on filedocumented in this encounter
--- OUTSIDE RECORDS SUMMARY | 2022-08-31 15:00 | XMS_ITS | Encounter Summary ---
:1970 Author Organization [facility] Address [address], [place] [address] Care Team Providers Name Role Phone Unavailable Primary Care Provider Unavailable Reason for Visit Reason Comments Refill Encounter Details Date Type Department Care Team Description 09/26/2011 Refill [facility] Katie Chaney RN Refill [address] [place], [place] [address] Social History Tobacco Use Types [...] encounter Nursing Notes Janki Hoover RN - 09/26/2011 2:09 PM CST Last Percocet rx left at [facility] mk 2 advanced operator desk on first floor. Patient is to follow-up with PM&R for further evaluation. PRESSER Katie Castano RN - 09/26/2011 10:08 AM CST Caller requesting refill of Percocet: Prescription Refills Pending Prescriptions Disp Refills ??? oxyCODONE-acetaminophen (PERCOCET) 5-325 mg per tablet 60 tablet 0 Sig: Take 1-2 tablets by mouth every 4 hours as needed for Pain. Maximum 12 tablets/24 hours Indications: PAIN Status is L3 radiculopathy, lateral disk protrusions at L2-3 and L3-4 contacting the left L3 nerve root. Last filled 09/14/11 #60 documented in this encounter Plan of Treatment Upcoming Encounters Date Type Specialty Care Team Description 09/01/2022 Telemedicine [place] [address] [place] [address] (Wo rk) documented as of this encounter Visit Diagnoses Diagnosis Low back pain radiating to left leg Lumbago documented in this encounter
--- OUTSIDE RECORDS SUMMARY | 2022-08-31 15:00 | XMS_ITS | Encounter Summary ---
:1970 Author Organization [facility] Address [address] [place] [address] Care Team Providers Name Role Phone Unavailable Primary Care Provider Unavailable Reason for Referral Specialty Diagnoses / Procedures Referred By Contact Refer red To Contact Dior Cadena P A-C [address] [facility] [place], [place] [address] Referral ID Status Reason Start Date Expiration Date Visits Requ ested Visits Authorized FORWARDING SYSTEM MARKUP CLERK Reason for Visit Reason Comments Back Pain Encounter Details Date Type Department Care Team Description 10/24/2011 Initial Consult Sadia Perez Low back nisa n Rehabilitative Francia Travis MD radiating to left Medicine [address] (Primary Dx) [address] [place] [phone] Social History Tobacco Use Types Packs/Day Years [...] Sign Reading Time Taken Comments Blood Pressure 128/62 10/24/2011 10:05 AM MAIL FORWARDING SYSTEM MARKUP CLERK Pulse 80 10/24/2011 10:05 AM MAIL FORWARDING SYSTEM MARKUP CLERK Temperature - - Respiratory Rate 13 10/24/2011 10:05 AM MAIL FORWARDING SYSTEM MARKUP CLERK Oxygen Saturation - - Inhaled Oxygen Concentration - - Weight - - Height - - Body Mass Index - - documented in this encounter Progress Notes Sadia Ontiveros MD - 10/24/2011 12:55 PM CST Progress Notes signed by Sadia Ontiveros MD at 10/24/11 9210 Author: Sadia Ontiveros MD Service: (none) Author Type: Physician Filed: 10/24/11 1742 Note Time: 10/24/11 1255 Status: Signed Scratcher: Sadia Ontiveros MD (Physician) NAME: RAJESH STEVENS MR#: [id number] CSN: [id number] AUTHENTICATING CLINICIAN: Sadia Ontiveros MD CONFIRM #: [id number] LOC: 522 CLINIC PROGRESS NOTE DATE OF VISIT: 10/24/2011 : 1970 SUBJECTIVE: She presents for evaluation of low back pain. Previously followed by Dior Cadena PA-C. She is a very pleasant 41-year-old female who was previously doing well up until approximately a year and a half ago. Prior to that she developed no significant low back pain or leg pain. A year and a half ago she noted some increased pain with flare-ups that lasted a few months. She did have an epidural steroid injection and felt much better. She delivered a child and did well for the first 6 months or so and slowly the pain has increased in severity. Low back, and right and left leg. Pain severity is a 7 to 8 out of 10. Left leg pain is worse. This is a similar pain to what she had the injection last year and had improvement. Timing is constant with variations. Quality is aching, sharp and radiating. Getting worse. Aggravated with lifting, running, sitting, standing, twisting, and walking. Holding baby while she stands up. Improved with icing and medications. She notes the numbness in her feet occasionally. She denies any weakness or spinal related bowel or bladder changes. Treatment has included ice, massage therapy, and medications. Lumbar spine MRI from January 30, 2010, has shown small to moderate sized disk herniation in the left foraminal region at L2-3 level causing mild left neural foraminal narrowing. Small disk herniation L3-4 level. FAMILY HISTORY: Negative for rheumatoid arthritis, chronic joint disease, chronic back pain, spine injury, chemical dependency treatment or alcohol dependency treatment. 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 She denies tobacco. She occasionally drinks alcohol. REVIEW OF SYSTEMS: Positive for fatigue, insomnia, depression, anxiety. Otherwise, complete review of systems is negative. PAST MEDICAL HISTORY: Negative for neck pain. Positive for low back pain. Negative for car accidents that have caused neck or low back injuries. Negative for chemical or alcohol dependency treatment. MEDICATIONS: Reviewed and updated. Please see patient health profile. ALLERGIES: Reviewed and updated. Please see patient health profile. VITALS: Reviewed. Please see patient health profile. PHYSICAL EXAM: A very pleasant female in no apparent distress. Gait is normal. Mood appropriate. Strength, bilateral lower extremities, is normal. Reflexes of the knees and ankles are normal. Straight-leg raise test is negative. Sensation intact to light touch in the lower extremities. IMPRESSION: Lumbar intervertebral degenerative disk disease. Intermittent low back pain. Left thigh pain greater than right thigh pain. PLAN: 1. Previously she has done an epidural steroid injection with improvement. The last one was an L2-3 epidural steroid injection. She does have changes at L2-3 and L3-4, however, she noted significant complete resolution of her pain with the L2-3 transforaminal epidural steroid injection. Will order left L2-3 transforaminal epidural steroid injection. Also instructed as per CDI pump and throw 48 hours after the injection. She does understand the instructions. 2. Discussed the Percocet with her which I will not be able to fill at this time. 3. Will schedule the injection as soon as possible after she has been able to pump and save the breast milk. 4. [facility] spine program in [facility] reviewed with the patient. AFM:MEDQ C: CONFIRM #: [id number] FORWARDING SYSTEM MARKUP CLERK documented in this encounter Plan of Treatment Upcoming Encounters Date Type Specialty Care Team Description 09/01/2022 Telemedicine [place] [address] [place], [place] [address] (Wo rk) Scheduled Referrals Name Type Priority Associated Diagnoses Order S chedule Physical Medicine & Referral Routine Low back pain radiati ng Ordered: 10/24/2011 Rehab Consult-Adult to left leg documented as of this encounter Visit Diagnoses Diagnosis Low back pain radiating to left leg - Pr imary Lumbago documented in this encounter
--- OUTSIDE RECORDS SUMMARY | 2022-08-31 15:00 | XMS_ITS | Encounter Summary ---
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 Patient warned the Rx must last 2 weeks. Patient verbalizes agreement. ESSING ARCHIVIST Sue Armstrong - 10/25/2011 1:[address] Ontiveros's notes pt is not to have a refill on Percocet Rx. Dr. Ontiveros is out of the office next week. Pt is aware rx is denied. She was offered to come to see another provider to discuss provider. Katie Castano RN - 10/24/2011 5:02 PM CST Caller Rajesh states she needs a refill of Percocet. It is not clear as to why she was asked by Dr Smith to obtain the script from Mildred Cdaena as Dr Smith's notes are not yet available. Mildred Cadena not in clinic until Monday and will not patient states she cannot wait that long. Prescription Refills Pending Prescriptions Disp Refills ??? oxyCODONE-acetaminophen (PERCOCET) 5-325 mg per tablet 60 tablet 0 Sig: Take 1-2 tablets by mouth every 4 hours as needed for Pain. Maximum 12 tablets/24 hours Indications: PAIN documented in this encounter Plan of Treatment Upcoming Encounters Date Type Specialty Care Team Description 09/01/2022 Telemedicine [place] [address] [place], [place] [address] (Wo rk) documented as of this encounter Visit Diagnoses Diagnosis Low back pain radiating to left leg Lumbago documented in this encounter
--- OUTSIDE RECORDS SUMMARY | 2022-08-31 15:00 | XMS_ITS | Encounter Summary ---
:1970 Author Organization [facility] Address [address], [place] [address] Care Team Providers Name Role Phone Unavailable Primary Care Provider Unavailable Encounter Details Date Type Department Care Team Description 08/21/2007 Office Visit [facility] [place] [address] [address] [place] [address] [place] [address] [phone] Social History Tobacco Use Types Packs/Day Years [...] 09/01/2022 Telemedicine [place] [address] [place], [place] [address] (Wo rk) documented as of this encounter Visit Diagnoses Not on filedocumented in this encounter
--- OUTSIDE RECORDS SUMMARY | 2022-08-31 15:00 | XMS_ITS | Encounter Summary ---
:1970 Author Organization [facility] Address [address], [place] [address] Care Team Providers Name Role Phone Unavailable Primary Care Provider Unavailable Encounter Details Date Type Department Care Team Description 02/11/2010 PN Conversion Only [facility] [address] [place], [place] [address] Social History Tobacco Use Types [...] Sign Reading Time Taken Comments Blood Pressure 134/70 02/11/2010 7:51 AM CDT Pulse 95 02/11/2010 7:51 AM CDT Temperature - - Respiratory Rate - - Oxygen Saturation - - Inhaled Oxygen Concentration - - Weight - - Height - - Body Mass Index - - documented in this encounter Plan of Treatment Upcoming Encounters Date Type Specialty Care Team Description 09/01/2022 Telemedicine [place] [address] [place], [place] [address] (Wo rk) documented as of this encounter Procedures Procedure Name Priority Date/Time Associated Comments Diagnosis DUC EPIDURAL INJECTION Routine 02/11/2010 8:33 AM Results for this TRANFORAMINAL LUMBAR CDT procedu re are in SACR[facility] the results section. documented in this encounter Results DUC Epidural Injection Tranforaminal Lumbar Sacral (02/11/2010 8:33 AM CDT) Anatomical Region Laterality Modality Spine, L-Spine Other Specimen (Source) Anatomical Location Collection Method / Collectio n Time Received Time / Laterality Volume Narrative 02/11/2010 8:33 AM CDT HISTORY OF PRESENT ILLNESS: ??This is a 39 -year-old female patient referred today by LUIZ BARRAGAN for th e above procedure. ??She has seen some improvement in her pain howeve r continues occasionally on the left side. ??Last 2 days where she i s seen her significant improvement. ??She would like to continu e however with injection. DIAGNOSIS: Lumbago 242.2 Intervertebral disk protrusion NOS ??722 .2 Lumbar radiculopathy Left L2-3 TRANSFORAMINAL EPIDURAL STEROI D INJECTION: INDICATIONS: ??Low back pain and radicul ar pain as confirmed on clinical exam and imaging studies. ??Marie n has been refractory to conservative therapy. INFORMED CONSENT: ??The procedure was di scussed in detail. ??Potential risks including but not limited to bleed ing, infection, nerve injury, adverse reactions to medicines and incre ased pain were discussed. Potential benefits including decreased p ain, improved function and facilitating an exercise/rehabilitation program were reviewed. ??All of the patient's questions were answered . PROCEDURE DETAILS: ??The patient was bro ught to the procedure suite and placed prone on the fluoroscopy tabl e. ??All pressure points were padded. ??Monitors, including the noninv asive blood pressure cuff and pulse oximetry, were placed. ??The back was then carefully prepped with Dura-Prep and sterilely draped. ??A timeout was then completed to confirm the correct patient, procedure, and side of procedure. ??Using fluoroscopic imaging, the left L2-3 leve l and landmarks were identified and 1% lidocaine local anesth etic was injected into the skin and underlying tissues using a 25 g auge 1.5 inch needle. ??Then, using fluoroscopic guidance, a 22 gauge Quincke needle was advanced into the superior-posterior component of the neural foramen. ??A lateral fluoroscopic view was obtained t o ensure proper needle placement. ??1 mL of Omnipaque was injec caroline which confirmed appropriate placement and the epidurogra m was interpreted. ??There were no signs of intravascular or intrat hecal injection. ??After negative aspiration for blood, CSF, and no remarkable paresthesias or dyesthesias, 80 mg of Depo-Medrol along with 2 mL of 0.25% bupivacaine were injected into the trans foraminal epidural space. The needle was then carefully withdrawn. ??Vital signs remained stable throughout the procedure. ??The patient' s back was then washed free of the prep solution and the needle site wa s bandaged with antibiotic ointment. ??The patient was taken to the recovery room where they remained stable. ??The patient was consc ious, appropriate, and neurologically intact. ??They were then discharged home with instructions and in the care of another adult. ??The patient was instructed to call the office or proceed to the nearest hospital emergency room if there were any further questions or concerns. EPIDUROGRAM INTERPRETATION: ??The epidur ogram visualized the contrast solution to spread distally and proximal ly along the appropriate nerve root into the proximal epidural sp tootie. ??There was no evidence of intravascular or intrathecal spread. Pre-procedure VAS 0/10, post-procedure V 0 /10. FOLLOW-UP: ??Patient will follow up with their referring physician. Dictating [facility] Procedure Note Manuel Guy MD - 03/03/2016Forma tting of this note might be different from the original. HISTORY OF PRESENT ILLNESS: This is a 39 -year-old female patient referred today by LUIZ BARRAGAN for th e above procedure. She has seen some improvement in her pain howeve r continues occasionally on the left side. Last 2 days where she is seen her significant improvement. She would like to continue however with injection. DIAGNOSIS: Lumbago 242.2 Intervertebral disk protrusion NOS 722.2 Lumbar radiculopathy Left L2-3 TRANSFORAMINAL EPIDURAL STEROI D INJECTION: INDICATIONS: Low back pain and radicular pain as confirmed on clinical exam and imaging studies. Pain has been refractory to conservative therapy. INFORMED CONSENT: The procedure was disc ussed in detail. Potential risks including but not limited to bleed ing, infection, nerve injury, adverse reactions to medicines and incre ased pain were discussed. Potential benefits including decreased p ain, improved function and facilitating an exercise/rehabilitation program were reviewed. All of the patient's questions were answered . PROCEDURE DETAILS: The patient was broug ht to the procedure suite and placed prone on the fluoroscopy tabl e. All pressure points were padded. Monitors, including the noninvas nicanor blood pressure cuff and pulse oximetry, were placed. The back wa s then carefully prepped with Dura-Prep and sterilely draped. A t imeout was then completed to confirm the correct patient, procedure, and side of procedure. Using fluoroscopic imaging, the left L2-3 leve l and landmarks were identified and 1% lidocaine local anesth etic was injected into the skin and underlying tissues using a 25 g auge 1.5 inch needle. Then, using fluoroscopic guidance, a 22 gauge Quincke needle was advanced into the superior-posterior component of the neural foramen. A lateral fluoroscopic view was obtained t o ensure proper needle placement. 1 mL of Omnipaque was injecte d which confirmed appropriate placement and the epidurogra m was interpreted. There were no signs of intravascular or intrat hecal injection. After negative aspiration for blood, CSF, and no remarkable paresthesias or dyesthesias, 80 mg of Depo-Medrol along with 2 mL of 0.25% bupivacaine were injected into the trans foraminal epidural space. The needle was then carefully withdrawn. Vital signs remained stable throughout the procedure. The patient's back was then washed free of the prep solution and the needle site wa s bandaged with antibiotic ointment. The patient was taken to the r ecovery room where they remained stable. The patient was conscio us, appropriate, and neurologically intact. They were then di scharged home with instructions and in the care of another adult. The patient was instructed to call the office or proceed to the nearest hospital emergency room if there were any further questions or concerns. EPIDUROGRAM INTERPRETATION: The epidurog beulah visualized the contrast solution to spread distally and proximal ly along the appropriate nerve root into the proximal epidural sp tootie. There was no evidence of intravascular or intrathecal spread. Pre-procedure VAS 0/10, post-procedure V 0 /10. FOLLOW-UP: Patient will follow up with promise siu referring physician. Dictating [facility] Pain [facility] [place] documented in this encounter Visit Diagnoses Not on filedocumented in this encounter
--- OUTSIDE RECORDS SUMMARY | 2022-08-31 15:00 | XMS_ITS | Encounter Summary ---
:1970 Author Organization [facility] Address [address], [place] [address] Care Team Providers Name Role Phone Unavailable Primary Care Provider Unavailable Encounter Details Date Type Department Care Team Description 01/20/2011 PN Conversion Only CONVERSION CONVERSION Social History Tobacco Use Types Packs/Day Years [...] 09/01/2022 Telemedicine [place] [address] [place], [place] [address] (Wo rk) documented as of this encounter Visit Diagnoses Not on filedocumented in this encounter
--- OUTSIDE RECORDS SUMMARY | 2022-08-31 15:00 | XMS_ITS | Encounter Summary ---
:1970 Author Organization [facility] Address [address] [address] Care Team Providers Name Role Phone Unavailable Primary Care Provider Unavailable Encounter Details Date Type Department Care Team Description 02/04/2010 PN Conversion Only [facility] [address] [address] [place] [address] Social History Tobacco Use Types Packs/Day Years [...] 09/01/2022 Telemedicine [place] [address] [place], [place] [address] (Wo rk) documented as of this encounter Visit Diagnoses Not on filedocumented in this encounter
--- OUTSIDE RECORDS SUMMARY | 2022-08-31 15:00 | XMS_ITS | Encounter Summary ---
:1970 Author Organization [facility] Address [address] [place] [address] Care Team Providers Name Role Phone Unavailable Primary Care Provider Unavailable Encounter Details Date Type Department Care Team Description 07/07/2011 Lab Visit [facility] [address] [place] [address] Social History Tobacco Use [...] 09/01/2022 Telemedicine [place] [address] [place], [place] [address] (Wo rk) documented as of this encounter Procedures Procedure Name Priority Date/Time Associated Comments Diagnosis GLUCOSE Routine 07/07/2011 2:16 PM Fatigue Results f or this CDT procedure are i n the results section. THYROID STIMULATING Routine 07/07/2011 2:16 PM Fatigue Re sults for this HORMONE CDT procedure are i n the results section. COMPLETE BLOOD Routine 07/07/2011 2:16 PM Fatigue Results for this COUNT-W/DIFF CDT procedure are i n the results section. DIFFERENTIAL Routine 07/07/2011 2:16 PM Results f or this CDT procedure are i n the results section. ELECTROLYTE PANEL Routine 07/07/2011 2:16 PM Fatigue Resu lts for this CDT procedure are i n the results section. VENIPUNCTURE (ANTIONETTE) Routine 07/07/2011 Results for this procedure are i n the results section. documented in this encounter Results Differential (07/07/2011 2:16 PM CDT) P athologist Signature Absolute 3.5 1.8 - 8.0 HP CONVERSION Neutrophils k/cmm Absolute 2.3 1.1 - 4.0 HP CONVERSION Lymphocytes k/cmm Absolute 0.5 0.2 - 0.8 HP CONVERSION Monocytes k/cmm Absolute 0.1 0.0 - 0.5 HP CONVERSION Eosinophils k/cmm Absolute 0.0 0.0 - 0.2 HP CONVERSION Basophils k/cmm Specimen Anatomical Collection Method Collection Time Receive d Time (Source) Location / / Volume Laterality 07/07/2011 2:16 PM 1 2:16 CDT PM CDT Narrative HP CONVERSION - 07/07/2011 2:27 PM CDT Performed at [facility], [address] [place] [address] Yeimi Morgan MD LAB_1 Performing Organization Address City/State/ZIP Code Phon e Number HP CONVERSION Electrolyte Panel (07/07/2011 2:16 PM CDT) athologist Signature Sodium 139 137 - 147 HP CONVERSION mEq/L Potassium 4.2 3.5 - 5.2 HP CONVERSION mEq/L Chloride 107 98 - 110 HP CONVERSION mEq/L Bicarbonate 30 23 - 33 HP CONVERSION mmol/L Specimen Anatomical Collection Method Collection Time Receive d Time (Source) Location / / Volume Laterality 07/07/2011 2:16 PM 1 8:21 CDT PM CDT Narrative HP CONVERSION - 07/07/2011 8:45 PM CDT Performed at [facility], [address] [place] [address] Yeimi Morgan MD LAB_1 Performing Organization Address City/[facility]/ZIP Code Phon e Number HP CONVERSION THYROID STIMULATING HORMONE (07/07/2011 2:16 PM CDT) athologist Signature Thyroid 1.26 0.20 - HP CONVERSION Stimulating 4.50 mIU/L Hormone Specimen Anatomical Collection Method Collection Time Receive d Time (Source) Location / / Volume Laterality 07/07/2011 2:16 PM 1 8:58 CDT PM CDT Yeimi Morgan MD LAB_1 Performing Organization Address City/State/ZIP Code Phon e Number HP CONVERSION GLUCOSE (07/07/2011 2:16 PM CDT) athologist Signature Lab Glucose 87 60 - 100 HP CONVERSION mg/dL Specimen Anatomical Collection Method Collection Time Receive d Time (Source) Location / / Volume Laterality 07/07/2011 2:16 PM 1 8:21 CDT PM CDT Narrative HP CONVERSION - 07/07/2011 8:45 PM CDT Performed at [facility], [address] [place] [address] Yeimi Morgan MD LAB_1 Performing Organization Address [facility] Phon e Number HP CONVERSION Hemogram/Plts/Diff (07/07/2011 2:16 PM CDT) athologist Signature White Blood Cell 6.4 3.8 - 11.0 HP CONVERSIO N Count k/cmm Red Blood Cell 4.21 3.70 - HP CONVERSION Count 5.20 m/cmm Hemoglobin 13.0 11.8 - HP CONVERSION 15.5 g/dL Hematocrit 37.8 35.0 - HP CONVERSION 46.0 % Mean Corpuscular 89.8 80.0 - HP CONVERSION Volume 100.0 fL RDW 12.6 11.0 - HP CONVERSION 15.0 % Platelet Count 234 140 - 450 HP CONVERSION k/cmm Specimen Anatomical Collection Method Collection Time Receive d Time (Source) Location / / Volume Laterality 07/07/2011 2:16 PM 1 2:16 CDT PM CDT Narrative HP CONVERSION - 07/07/2011 2:27 PM CDT Performed at [facility], [address] [place] [address] Yeimi Morgan MD LAB_1 Performing Organization Address [facility] Phon e Number HP CONVERSION VENIPUNCTURE (ANTIONETTE) (07/07/2011) athologist Signature Venipuncture Done HP CONVERSION Specimen (Source) Anatomical Location Collection Method / Collectio n Time Received Time / Laterality Volume 07/07/2011 07/07/2011 Narrative HP CONVERSION - 07/07/2011 2:16 PM CDT Performed at [facility], [address] [place], [place] [id number] Yeimi Morgan MD LAB_1 Performing Organization Address [facility] Phon e Number HP CONVERSION documented in this encounter Visit Diagnoses Diagnosis Fatigue Other malaise and fatigue documented in this encounter
--- OUTSIDE RECORDS SUMMARY | 2022-08-31 15:00 | XMS_ITS | Encounter Summary ---
:1970 Author Organization [facility] Address [address] [address] Care Team Providers Name Role Phone Unavailable Primary Care Provider Unavailable Encounter Details Date Type Department Care Team Description 08/24/2007 Office Visit [facility] [address] [place] [address] Social History Tobacco Use Types [...] 09/01/2022 Telemedicine [place] [address] [place], [place] [address] (Wo rk) documented as of this encounter Visit Diagnoses Not on filedocumented in this encounter
--- OUTSIDE RECORDS SUMMARY | 2022-08-31 15:00 | XMS_ITS | Encounter Summary ---
:1970 Author Organization [facility] Address [address] [address] Care Team Providers Name Role Phone Unavailable Primary Care Provider Unavailable Encounter Details Date Type Department Care Team Description 05/13/2010 PN Conversion Only MUSLIM CONVERSION Social History Tobacco Use Types Packs/Day [...] 09/01/2022 Telemedicine [place] [address] [place], [place] [address] (Wo rk) documented as of this encounter Visit Diagnoses Not on filedocumented in this encounter
--- OUTSIDE RECORDS SUMMARY | 2022-08-31 15:00 | XMS_ITS | Encounter Summary ---
:1970 Author Organization [facility] Address [address], [place] [address] Care Team Providers Name Role Phone Unavailable Primary Care Provider Unavailable Reason for Visit Reason Comments Questions Encounter Details Date Type Department Care Team Description 09/07/2011 Telephone [facility] Dior Casillas, JACQUELINE Questions [address] [facility] [place], [place] [address] [place] [address] [phone] (Wo rk) Social History Tobacco Use Types [...] encounter Nursing Notes Dior Cadena PA-C - 09/07/2011 11:09 AM CST Pt is , so could not do injection bc of contrast. Will fax Prednisone 20 BID x 5days topharmacy STA Ino Emily Yousif - 09/07/2011 9:16 AM CST Patient has an appt for an injection today at noon and some questions, if you could please call her back before her appt. STA documented in this encounter Plan of Treatment Upcoming Encounters Date Type Specialty Care Team Description 09/01/2022 Telemedicine [place] [address] [place], [place] [address] (Wo rk) documented as of this encounter Visit Diagnoses Not on filedocumented in this encounter
--- OUTSIDE RECORDS SUMMARY | 2022-08-31 15:00 | XMS_ITS | Encounter Summary ---
:1970 Author Organization [facility] Address [address], [place] [address] Care Team Providers Name Role Phone Unavailable Primary Care Provider Unavailable Encounter Details Date Type Department Care Team Description 01/30/2010 PN Conversion Only [facility] [address] [place], [place] [address] Social History Tobacco Use Types [...] 09/01/2022 Telemedicine [place] [address] [place] [address] (Wo rk) documented as of this encounter Procedures Procedure Name Priority Date/Time Associated Diagnosis Comme nts MR LUMBAR SPINE WO Routine 01/30/2010 3:08 PM Res ults for this IV CONT CDT procedure are i n the results section. documented in this encounter Results MR Lumbar Spine WO IV Cont (01/30/2010 3:08 PM CDT) Anatomical Region Laterality Modality Spine, L-Spine, Skeletal Other Specimen (Source) Anatomical Location Collection Method / Collectio n Time Received Time / Laterality Volume Impressions 01/30/2010 3:08 PM CDT : 1. Small to moderate-sized disk herniati on in the left foraminal region at the L2-3 level causes mild lef t neuroforaminal narrowing. 2. ??Small disk herniation at the L3-4 l evel in the left foraminal region with mild neuroforaminal narrowin g. Dictating LEILA MORRISON Radiologist Narrative 01/30/2010 3:08 PM CDT TECHNIQUE: ??Routine MRI of the lumbar spine without ??IV Magnevist. COMPARISON: ?? None. FINDINGS: ?? The alignment, vertebral minoo dy height and marrow signal in the lumbar spine are within normal limit s. ??5 lumbar type vertebral bodies are normal in appearance. ??Conus is normal in appearance. Subcentimeter oval hyper T2 intense lesi ons in the bilateral neural foramina at multiple levels likely repre sent small perineural cysts. T12-L1: ?? No central canal or neural fo raminal narrowing. L1-2: ?? No central canal or neural fora josafat narrowing. L2-3: ??Disk desiccation. ??Broad health information coder ior disk herniation in the left foraminal region with an associated raven lar tear which causes mild left neuroforaminal narrowing. ??Contact of disk material with the traversing left L3 nerve root. L3-4: ??Small disk herniation with assoc iated annular tear in the left foraminal region with mild left neurofor aminal narrowing. L4-5: ?? No central canal or neural fora josafat narrowing. L5-S1: ?? No central canal or neural for aminal narrowing. ?mild bilateral facet joint arthropathy. Procedure Note Leila Bowers MD - 03/03/2016For matting of this note might be different from the original. TECHNIQUE: Routine MRI of the lumbar spi ne without IV Magnevist. COMPARISON: None. FINDINGS: The alignment, vertebral body height and marrow signal in the lumbar spine are within normal limit s. 5 lumbar type vertebral bodies are normal in appearance. Conus i s normal in appearance. Subcentimeter oval hyper T2 intense lesi ons in the bilateral neural foramina at multiple levels likely repre sent small perineural cysts. T12-L1: No central canal or neural poly inal narrowing. L1-2: No central canal or neural foramin al narrowing. L2-3: Disk desiccation. Broad posterior disk herniation in the left foraminal region with an associated raven lar tear which causes mild left neuroforaminal narrowing. Contact o f disk material with the traversing left L3 nerve root. L3-4: Small disk herniation with associa caroline annular tear in the left foraminal region with mild left neurofor aminal narrowing. L4-5: No central canal or neural foramin al narrowing. L5-S1: No central canal or neural forami nal narrowing. mild bilateral facet joint arthropathy. IMPRESSION : 1. Small to moderate-sized disk herniati on in the left foraminal region at the L2-3 level causes mild lef t neuroforaminal narrowing. 2. Small disk herniation at the L3-4 lev el in the left foraminal region with mild neuroforaminal narrowin anne. Dictating LEILA MORRISON Radiologist Luiz Teague MD RAD MRI documented in this encounter Visit Diagnoses Not on filedocumented in this encounter
--- OUTSIDE RECORDS SUMMARY | 2022-08-31 15:00 | XMS_ITS | Encounter Summary ---
:1970 Author Organization [facility] Address [address], [place] [address] Care Team Providers Name Role Phone Unavailable Primary Care Provider Unavailable Encounter Details Date Type Department Care Team Description 09/07/2011 Notes/Orders [facility] Nelly Cadena PA-C [address] [place] [address] [phone] Social History Tobacco Use Types Packs/Day Years [...] 09/01/2022 Telemedicine [place] [address] [place], [place] [address] (Wo rk) documented as of this encounter Visit Diagnoses Not on filedocumented in this encounter
--- OUTSIDE RECORDS SUMMARY | 2022-08-31 15:00 | XMS_ITS | Encounter Summary ---
:1970 Author Organization [facility] Address [address] [address] Care Team Providers Name Role Phone Unavailable Primary Care Provider Unavailable Encounter Details Date Type Department Care Team Description 10/26/2011 Notes/Orders [facility] Dior Cadena, Cristian ba [facility] PA-C radiating to left leg [address] [facility] (Primary Dx) [place], [place] [address] [place], [place] [phone] (Wo rk) Social History Tobacco Use Types [...] 09/01/2022 Telemedicine [place] [address] [place], [place] [address] (Wo rk) documented as of this encounter Visit Diagnoses Diagnosis Low back pain radiating to left leg - Pr imary Lumbago documented in this encounter
--- OUTSIDE RECORDS SUMMARY | 2022-08-31 15:00 | XMS_ITS | Encounter Summary ---
:1970 Author Organization [facility] Address [address], [place] [address] Care Team Providers Name Role Phone Unavailable Primary Care Provider Unavailable Encounter Details Date Type Department Care Team Description 02/01/2010 Office Visit [facility] Luiz Carlson [address] [place] [address] MD Ehsan [place], [place] [address] [facility] N [phone] [place], [place] [address] (Wo rk) Social History Tobacco Use Types [...] encounter Progress Notes Luiz Barragan MD - 02/01/2010 12:01 AM CDT Progress Notes signed by Luiz Barragan MD at 02/27/10 5766 Author: Luiz Barragan MD Service: (none) Author Type: Physician Filed: 01/08/11 2228 Note Time: 02/01/10 0001 Status: Signed Cnc Maintenance Mechanic: Luiz Barragan MD (Physician) NAME: RAJESH STEVENS ACCT: [id number] DICTATING CLINICIAN: LUIZ BARRAGAN MD JOB: [id number] LOC: 3711 CLINIC PROGRESS NOTE DATE OF VISIT: 02/01/2010 Rajesh comes back today for an evaluation of her lower back. She has a history of recurring back pain and leg pain and had an MRI done today at the [facility] which showed that they though that she had a small moderate sized disk herniation in the left foraminal region at the L2-3 level causing mild left neuroforaminal narrowing and some nerve irritation. There was also a small disk herniation at L3-4 with mild neuroforaminal narrowing. The treatment I think is that an epidural steroid injection should be done at the L2-3 level and let it run down to the L3 nerve root area at the area of irritation to try to quiet down the discomfort that she has in her left hip area and to some degree down to the anterior part of the thigh on that side. IMPRESSION: Nerve protrusion and hopefully the epidural steroid injection will quiet that down. We are tentatively scheduling her for that procedure to be carried out, but we would like to have her seen by a neurosurgeon or neurologist to get their opinion and that will be done. We discharge her today and will have her seen either by neurosurgery or neurology or have the epidural steroid injection to see what affect it has on her symptoms and then proceed from there. DIAGNOSIS: Disk protrusion at L2-3, left side. She is scheduled for an epidural steroid injection at that level. DOCUMENT: [id number] documented in this encounter Plan of Treatment Upcoming Encounters Date Type Specialty Care Team Description 09/01/2022 Telemedicine [place] [address] [place], [place] [address] (Wo rk) documented as of this encounter Visit Diagnoses Not on filedocumented in this encounter
--- OUTSIDE RECORDS SUMMARY | 2022-08-31 15:00 | XMS_ITS | Encounter Summary ---
:1970 Author Organization [facility] Address [address] [address] [facility] [place] [address] Care Team Providers Name Role Phone Unavailable Primary Care Provider Unavailable Reason for Visit Reason Comments Establish Care Encounter Details Date Type Department Care Team Description 07/07/2011 Office Visit [facility] Yeimi Morgan M D Diarrhea (Primary Dx); Medicine [address] Fatigue; [address] [place], [place] [phone] Social History Tobacco Use Types Packs/Day Years [...] Sign Reading Time Taken Comments Blood Pressure 102/67 07/07/2011 1:41 PM CDT Pulse 96 07/07/2011 1:41 PM CDT Temperature 36.4 ??C (97.5 ??F) 07/07/2011 1:41 PM CDT Respiratory Rate - - Oxygen Saturation - - Inhaled Oxygen Concentration - - Weight 84.8 kg (187 lb) 07/07/2011 1:41 PM CDT Height - - Body Mass Index - - documented in this encounter Progress Notes Yeimi Morgan MD - 07/09/2011 8:25 AM CDT Clinic Visit SUBJECTIVE: 40 years old female coming today to clinic for care establishment, fatigued tired. History of Present Illness: 40 years old female she presented to the clinic for following concern, according to the patient she did contact duration of couple weeks antivomiting, back pain neck pain. Sleep well at the to function without difficulties, p.o. intake was normal limit bowel movement with normal limit Past Medical History: Been reviewed in the chart for further information to get history Adverse Drug Reactions: Not known Medications: Reviewed. Medications now in the chart Family History: Uncontributory Social History: Marital Status: Smoking: Denies Alcohol: Less than social Review of Systems: All systems been reviewed except above.abnormal others normal OBJECTIVE: Vital Signs: BP 102/67 Pulse 96 Temp(Src) 36.4 ??C (97.5 ??F) (Oral) Wt 84.823 kg (187 lb) She appears well, in no apparent distress. Alert and oriented times three, pleasant and cooperative.Vital signs are as documented in vital signs section. HEENT negative Neck supine no enlarged lymph nodes no mass no thyromegaly vertebrae nontender paravertebral musclesslightly spastic Upper extremity due to symmetric of range of motion active and passive post flexible he normal Lung clear heart S1-S2 without murmur, abdomen soft no rebound no guarding no mass no tenderness, lower extremities she complain about mild pain but do show joint are symmetric of range of motion active and passive no pitting edema no rash no joint effusion ASSESSMENT: #1 care establishment Number to fatigued tired #3 depression anxiety #4 history of diarrhea for couple days improving was no blood in it the patient deferred rectal exa PLAN: #1 check electrolyte , glucose, TSH. Patient agree Number to attend symptom could be related to the medication she taken Xanax Wellbutrin and Ambien, discussed the adjustment of medication given to decrease some of the, patient agree to wait until 11 come back she will try to adjust the medication take Xanax and Ambien early in the evening , if concern question additional symptom back to the clinic anytime otherwise he'll followup after the lap results come back, patient agree documented in this encounter Plan of Treatment Upcoming Encounters Date Type Specialty Care Team Description 09/01/2022 Telemedicine [place] [address] [place] [address] (Wo rk) documented as of this encounter Visit Diagnoses Diagnosis Diarrhea - Primary Fatigue Other malaise and fatigue Anxiety and depression ([facility]) Dysthymic disorder documented in this encounter
--- OUTSIDE RECORDS SUMMARY | 2022-08-31 15:00 | XMS_ITS | Encounter Summary ---
:1970 Author Organization [facility] Address [address], [place] [address] Care Team Providers Name Role Phone Unavailable Primary Care Provider Unavailable Encounter Details Date Type Department Care Team Description 01/23/2010 Office Visit [facility] [place] [address] [address] [place] [address] [place] [address] [phone] Social History Tobacco Use Types Packs/Day Years [...] Sign Reading Time Taken Comments Blood Pressure 122/76 01/23/2010 2:38 PM CDT Pulse 109 01/23/2010 2:38 PM CDT Temperature 36.4 ??C (97.5 ??F) 01/23/2010 2:38 PM ORAL C: 3 6.4 C CDT Respiratory Rate 18 01/23/2010 2:38 PM CDT Oxygen Saturation - - Inhaled Oxygen Concentration - - Weight - - Height - - Body Mass Index - - documented in this encounter Progress Notes Scott Ospina MD - 01/23/2010 12:01 AM CDT Progress Notes signed by Scott Ospina MD at 02/07/10 1444 Author: Scott Ospina MD Service: (none) Author Type: Physician Filed: 01/08/11 2215 Note Time: 01/23/10 0001 Status: Signed Security Alarm Installer: Scott Ospina MD (Physician) NAME: RAJESH STEVENS MR#: [id number] ACCT: [id number] VISIT: [id number] DICTATING CLINICIAN: Scott Ospina MD CONFIRM #: [id number] LOC: 520 CLINIC PROGRESS NOTE DATE OF VISIT: 01/23/2010 SUBJECTIVE: 39-year-old, left low back pain, onset in the last few days, increasing intensity overnight. The patient can not sit still today, has too much pain sitting, too much pain standing, must continuously change positioning. REVIEW OF SYSTEMS: There is pain into her buttock into her left lateral leg and calf. She denies any weakness to the leg, she denies any loss of bowel or bladder control, denies any numbness, except the distal calf. Foot strength appears to be normal bilaterally. She is able walk with an antalgic limp. She has reasonable range of motion of the back. PAST MEDICAL HISTORY: Reviewed, appendectomy, herniorrhaphy and pneumothorax. OBJECTIVE: VS: BP: ??123??/76. T: 97. P: 109. R: 18. HEENT: Patient in distress, hard to find a comfortable position, is able to carry on a normal conversation though, shows appropriate affect. NECK: Straight and supple. Upper thorax normal. BACK: Stiffness and pain palpable low lumbar segment. SI joints nontender, but sciatic nerve on the left is definitely tender to palpation. There is tenderness posterior thigh into the lateral thigh and lateral lower calf, with some decreased sensation lateral lower calf she reports. Full range of motion at the ankle, normal strength, normal toe raise, normal heel walk at this time. X-ray examination shows normal-appearing lumbar spine. ASSESSMENT: Lumbar disk syndrome with sciatica. PLAN: She was given Toradol 60 mg before x-ray. DISCHARGE MEDICATIONS: Will include Decadron 4 mg t.i.d. for 8 days, pending followup at [facility] on the 8th or 9th day. 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 She will follow up immediately per emergency room if that were to occur, otherwise follow up with [facility], to be referred to appropriate Ortho or Neuro at that time, if symptoms continue, if they worsen see ER, again, that was emphasized. TEL:[id number] C: 01/25/10 13:05 CONFIRM #: [id number] documented in this encounter Plan of Treatment Upcoming Encounters Date Type Specialty Care Team Description 09/01/2022 Telemedicine [place] [address] [place], [place] [address] (Wo rk) documented as of this encounter Procedures Procedure Name Priority Date/Time Associated Diagnosis Comme nts XR LUMBAR SPINE 2-3 Routine 01/23/2010 3:24 PM Re sults for this VIEWS CDT procedure are i n the results section. documented in this encounter Results XR Lumbar Spine 2-3 Views (01/23/2010 3:24 PM CDT) Anatomical Region Laterality Modality Spine, L-Spine Other Specimen (Source) Anatomical Location Collection Method / Collectio n Time Received Time / Laterality Volume Impressions 01/23/2010 3:24 PM CDT : Normal 2 view study of the lumbar spine. Dictating FRANCISCO ZAIDI RADIOLOGIST Narrative 01/23/2010 3:24 PM CDT 2 views were obtained. There are 5 lumbar vertebral segments. ??Vertebral bodies are anatomically aligned. ??There is no evid ence of a fracture and disk space heights are normal. Procedure Note Francisco Villalpando - 03/03/2016Formattin g of this note might be different from the original. 2 views were obtained. There are 5 lumbar vertebral segments. Vertebral bodies are anatomically aligned. There is no eviden ce of a fracture and disk space heights are normal. IMPRESSION : Normal 2 view study of the lumbar spin e. Dictating FRANCISCO ZAIDI RADIOLOGIST Scott Ospina MD RAD GD documented in this encounter Visit Diagnoses Not on filedocumented in this encounter
--- OUTSIDE RECORDS SUMMARY | 2022-08-31 15:00 | XMS_ITS | Encounter Summary ---
:1970 Author Organization [facility] Address [address], [place] [address] Care Team Providers Name Role Phone Unavailable Primary Care Provider Unavailable Encounter Details Date Type Department Care Team Description 09/24/2010 Office Visit [facility] [place] [address] [place], [place] [id number] [place] [address] [phone] (Wo rk) Social History Tobacco Use Types [...] documented as of this encounter Progress Notes Andres Kamara MD - 09/24/2010 12:01 AM CST NAME: RAJESH STEVENS MR#: [id number] ACCT: [id number] VISIT: [id number] DICTATING CLINICIAN: Andres Kamara MD CONFIRM #: [id number] LOC: 520 CLINIC PROGRESS NOTE DATE OF VISIT: 09/24/2010 : 1970 She is a 40-year-old female, 30 weeks gestation of . There is concern because she has a history a year and a half ago of salivary gland infection requiring hospitalization with IV antibiotics. Last night she had temperature of 102.7. She does feel some tenderness under the jaw bilaterally. She has been recently on Z-Boom and Levaquin given by a physician where she works in [employer]. She does have sore throat and earache now. has been going well. No vomiting or diarrhea. ALLERGIES: None. EXAM: VITAL SIGNS: Temperature 98.3, pulse 123, respiratory rate 20, blood pressure 117/67. GENERAL: She looks in no acute distress. Normal skin color. HEENT: Tympanic membranes and external auditory canals normal. The oropharynx is a moderately edematous and erythematous, no exudate. Uvula is midline. No cervical adenopathy to palpation. LUNGS: Clear bilaterally to auscultation. I ordered strep screen, positive. ASSESSMENT: Strep pharyngitis. PLAN: Penicillin as per [employer]. Drink plenty of fluids, return as needed. OS:MEDQ C: CONFIRM #: [id number] S FEEDER BROOMCORN documented in this encounter Plan of Treatment Upcoming Encounters Date Type Specialty Care Team Description 09/01/2022 Telemedicine [place] [address] [place], [place] [address] (Wo rk) documented as of this encounter Visit Diagnoses Not on filedocumented in this encounter
--- OUTSIDE RECORDS SUMMARY | 2022-08-31 15:00 | XMS_ITS | Encounter Summary ---
:1970 Author Organization [facility] [facility] Address [address] [address] Care Team Providers Name Role Phone Unavailable Primary Care Provider Unavailable Reason for Visit Reason Comments Back Pain Encounter Details Date Type Department Care Team Description 08/07/2011 Office Visit [facility] Lashay Schwarz, Lumbar radiculopathy Urgent Care MD (Primary Dx) [address] [place] [address] [place], [place] [address] [phone] (Wo rk) Social History Tobacco Use Types [...] - - Weight 77.1 kg (170 lb) 08/07/2011 9:51 AM INFORMATION ASSURANCE ENGINEER Height 182.9 cm (6') 08/07/2011 9:51 AM INFORMATION ASSURANCE ENGINEER Body Mass Index 23.06 08/07/2011 9:51 AM INFORMATION ASSURANCE ENGINEER documented in this encounter Progress Notes Lashay Schwarz MD - 08/08/2011 5:16 AM CST Progress Notes signed by Lashay Schwarz MD at 08/08/111217 Author: Lashay Schwarz MD Service: (none) Author Type: Physician Filed: 08/08/111217 Note Time: 08/08/11515 Status: Signed Net Developer With Wcf: Lashay Schwarz MD (Physician) NAME: RAJESH STEVENS VISIT: [id number] DICTATING CLINICIAN: LASHAY SCHWARZ MD JOB: [id number] [facility] JOB: [id number] LOC: 3711 CLINIC PROGRESS NOTE DATE OF VISIT: 08/07/2011 : 1970 CHIEF COMPLAINT: Low back pain. HISTORY OF PRESENT ILLNESS: This 41-year-old female presents with her for evaluation of low back pain that began to worsen over the last 2 days. She describes some tightness and soreness in the left lower portion of her back, radiating into her hip and into the lateral aspect of her thigh. She states she has had these similar symptoms in the past and it took approximately 3 to 4 weeks to recover. She had an MRI in January and it showed herniated disk. She had an epidural steroid injection which she did not feel had helped but oral prednisone did. REVIEW OF SYSTEMS: No fevers, rash; she does have some numbness and tingling. No bowel or bladder dysfunction, leg weakness or groin numbness. PAST MEDICAL HISTORY: Significant for prior herniated disk. MRI showing an L2-3 and L3-4 left sided disk herniation. Epidural steroid injection in the past. SOCIAL HISTORY: She is a nonsmoker. PHYSICAL EXAMINATION: Temperature: 98.5. General: She is an awake, alert, female, sclera nonicteric. She has good eye contact. Mucous membranes are moist. Vascular: Capillary refill is normal. Neurologic: Sensation is intact to light touch. Skin: Without erythema or ecchymosis. Tender to palpation over the paraspinal musculature and quadratus lumborum. Nontender over the greater trochanters and PSIS. Strength testing in her lower extremities is 5/5 with hip flexion, knee flexion, extension, dorsi and plantar flexion as well as extensor hallucis longus. Deep tendon reflexes are symmetric at the knees and ankles. She is able to walk on her toes and heels. ASSESSMENT: Left lumbar radiculopathy. PLAN: 1. Educated the patient and her regarding the condition, management as well as expected response to treatment and recovery. 2. After discussion, recommended formal physical therapy, oral pain medication, and followup in the spine clinic should her symptoms worsen or fail to improve. All of her and her 's questions are answered to their satisfaction. IM: 08/08/2011 07:18:22 am MT: 4 RMATION ASSURANCE ENGINEER documented in this encounter Plan of Treatment Upcoming Encounters Date Type Specialty Care Team Description 09/01/2022 Telemedicine [place] [address] [place], [place] [address] (Wo rk) documented as of this encounter Visit Diagnoses Diagnosis Lumbar radiculopathy - Primary Thoracic or lumbosacral neuritis or radi culitis, unspecified documented in this encounter
--- OUTSIDE RECORDS SUMMARY | 2022-08-31 15:00 | XMS_ITS | Encounter Summary ---
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 AND COAL TRANSPORT OPERATOR Kortney Pagan - 11/14/2011 8:04 AM CST Patient is leaving town today and would like a refill of her Percocit today so they can get out of town due to the upcoming weather. AND COAL TRANSPORT OPERATOR documented in this encounter Plan of Treatment Upcoming Encounters Date Type Specialty Care Team Description 09/01/2022 Telemedicine [place] [address] [place], [place] [address] (Wo rk) documented as of this encounter Visit Diagnoses Diagnosis Low back pain radiating to left leg - Pr imary Lumbago documented in this encounter
--- OUTSIDE RECORDS SUMMARY | 2022-08-31 15:00 | XMS_ITS | Encounter Summary ---
:1970 Author Organization [facility] Address [address], [place] [address] Care Team Providers Name Role Phone Unavailable Primary Care Provider Unavailable Reason for Visit Reason Comments Other Encounter Details Date Type Department Care Team Description 02/08/2010 Telephone [facility] Carlson, Luiz Moser, Other [address] [place], [place] [address] [address] [facility] [address] [phone] [place] [address] (Wo rk) Social History Tobacco Use Types [...] documented as of this encounter Progress Notes Sophia Mtz - 02/08/2010 5:46 PM CDT Phone Note filed by Sophia Mtz at 01/08/11751 Author: Sophia Mtz Service: (none) Author Type: Poultry Hanger Filed: 01/08/11751 Note Time: 02/08/101745 Status: Signed Mri Manager: Sophia Mtz (Poultry Hanger) Pt called for refill of vicodin and flexeril and was given 20 more tab of Vicodin and 15 tab of Flexeril per VO Dr. Teague. Prescription was called into [facility] at [phone] on 02/08/10. Created on 08Feb2010 5:46pm by SOPHIA MTZ RMATION TECHNOLOGY DIRECTOR documented in this encounter Plan of Treatment Upcoming Encounters Date Type Specialty Care Team Description 09/01/2022 Telemedicine [place] [address] [place] [address] (Wo rk) documented as of this encounter Visit Diagnoses Not on filedocumented in this encounter
--- OUTSIDE RECORDS SUMMARY | 2022-08-31 15:00 | XMS_ITS | Encounter Summary ---
:1970 Author Organization [facility] Address [address], [place] [address] Care Team Providers Name Role Phone Unavailable Primary Care Provider Unavailable Encounter Details Date Type Department Care Team Description 09/24/2010 PN Conversion Only [facility]VERS[facility] Franco, [address] [place] [address] [address] [place] [address] (Wo rk) Social History Tobacco [...] 09/01/2022 Telemedicine [place] [address] [place] [address] (Wo rk) documented as of this encounter Procedures Procedure Name Priority Date/Time Associated Diagnosis Comme nts RAPID STREP SCREEN Routine 09/24/2010 10:19 AM Re sults for this WAIVED SECTION [employer] procedure are i n the results section. documented in this encounter Results RAPID STREP SCREEN WAIVED (09/24/2010 10:19 AM SECTION [employer]) Analysis Performed At Patho logist Time Signature Rapid Strep SEE TEXT HP CONVERSION Screen Waived Comment: RSSW Rapid Strep Screen Waived ? ORDERED BY: ANDRES GARCIA SOURCE: Throat ? COLLECTED: ??09/24/10 10:19 ? PLATED: ? 09/24/10 10:19 Rapid Strep Screen Waived ?FINAL ? 09/24/10 10:35 ??Test performed by:Itzel ? Positive for Streptococcus group A ? ICSI Pharyngitis guideline recommends: ? Penicillin V potassium(Pen VK)in nonallergic patients. ? If <50 lbs, 250 mg PenVK BI D for 10 days. ? If >=50 lbs, 500 mg PenVK B ID for 10 days. Specimen (Source) Anatomical Collection Method Collection Time Re ceived Time Location / / Volume Laterality 09/24/2010 10:19 AM SECTION [employer] Andres Garcia MD LAB_1 Performing Organization Address City/State/ZIP Code Phon e Number HP CONVERSION documented in this encounter Visit Diagnoses Not on filedocumented in this encounter
--- OUTSIDE RECORDS SUMMARY | 2022-08-31 15:00 | XMS_ITS | Encounter Summary ---
:1970 Author Organization [facility] Address [address], [place] [address] Care Team Providers Name Role Phone Unavailable Primary Care Provider Unavailable Reason for Visit Reason Comments Other Encounter Details Date Type Department Care Team Description 10/31/2007 Telephone [facility] [address] [facility] [place], Message Other [address] [place], [place] [phone] Social History Tobacco Use Types Packs/Day Years [...] documented as of this encounter Progress Notes Radha Blum LPN - 10/31/2007 8:11 AM CST Phone Note filed by Radha Blum LPN at 01/05/11 3893 Author: Radha Blum LPN Service: (none) Author Type: Licensed Practical Nurse Filed: 01/05/11 1145 Note Time: 10/31/07 0811 Status: Signed Hourly Sign Language Interpreter: Radha Blum LPN (Licensed Practical Nurse) Prescription Refill Please provide enough refills to last until patient's next visit. Comment:-la 08/24/07, no appt scheduled Pharmacy Seq #:-[phone] Pharmacy Name:-[facility] [phone] or City:-[place] Clinician Name:-angus Drug Name/Strength:-tobradex opth Sig: Dose/Route/Freq:-1 drop in both eyes every 2 hrs x 2 days, then 8qtuwo2 days, then 3 times/dayx2 dys, 2x/daily x 2 days, 1x daily x 2 days. Quantity & Last Fill:-5mls 08/26/07 Created on [id number] 8:11am by DEJAH BLUM On 31Oct2007 4:46pm ANTONIO YO wrote: Second request coming in for this refill. Please respond to pharmacy and update medlist to reflect authorization, thanks. Acknowledged by CHUCKIE REVELES on 8:02am TESTER documented in this encounter Plan of Treatment Upcoming Encounters Date Type Specialty Care Team Description 09/01/2022 Telemedicine [place] [address] [place], [place] [address] (Wo rk) documented as of this encounter Visit Diagnoses Not on filedocumented in this encounter
--- OUTSIDE RECORDS SUMMARY | 2022-08-31 15:01 | XMS_ITS | Encounter Summary ---
:1970 Author Organization [facility] Address [address] [place] [id number] Care Team Providers Name Role Phone [facility] Primary Care Provider [phone] Reason for Visit Reason Comments Shortness of Breath Auth/Cert Specialty Diagnoses / Procedures Referred By Contact Refer red To Contact Diagnoses Hypoxia Severe persistent reactive airway disease with status asthmaticus Asthma [facility] [address] [place], [place] [address] Phone: Fax: Referral ID Status Reason Start Date Expiration Date Visits Requ ested Visits Authorized [id number] 1 1 Encounter Details Date Type Department Care Team Description 10/17/2018 - [facility] Nash Cobian MD [facility] [address] [place] [address] Mild intermittent asthma with acute exac erbation (Primary Dx); 10/19/2018 Encounter [facility] Kulwant Zepeda MD [address] [place], [place] [address] Severe persistent reactive airway diseas e with status asthmaticus; Surgical Hypoxia [address] [place] [address] Social History Tobacco Use Types Packs/Day Years Used Date Smoking Tobacco: Never Smokeless Tobacco: Never Sex Assigned at Date Recorded Not on file documented as of this encounter Last Filed Vital Signs Vital Sign Reading Time Taken Comments Blood Pressure 111/62 10/19/2018 7:41 AM COMMISSIONING EDITOR Pulse 94 10/19/2018 2:46 AM COMMISSIONING EDITOR Temperature 36.6 ??C (97.9 ??F) 10/19/2018 7:41 AM COMMISSIONING EDITOR Respiratory Rate 18 10/19/2018 7:41 AM COMMISSIONING EDITOR Oxygen Saturation 92% 10/19/2018 11:14 AM COMMISSIONING EDITOR Inhaled Oxygen Concentration - - Weight 103.9 kg (229 lb 1.6 oz) 10/17/2018 8:19 PM COMMISSIONING EDITOR Height 182.9 cm (6') 10/17/2018 8:19 PM COMMISSIONING EDITOR Body Mass Index 31.07 10/17/2018 8:19 PM COMMISSIONING EDITOR documented in this encounter Discharge Summaries Rafael Kincaid MD - 10/19/2018 12:48 PM CST [facility] Discharge Summary Hospitalist Date of Admission: 10/17/2018 Date of Discharge: 10/19/2018 Provider: Rafael Kincaid MD Date of Service (when I last saw the patient): 10/19/18 Discharge Diagnoses 1. Acute hypoxemic respiratory failure secondary to asthma exacerbation. 2. Mild to moderate intermittent asthma with acute exacerbation, unclear trigger. 3. Steroid-induced hyperglycemia. 4. History of depression/anxiety. 5. History of ADD. Other medical issues: No past medical history on file. History of Present Illness Rajesh Caba is an 48 year old female who presented with acute exacerbation of asthma and hypoxemia. Please see the admission history and physical for full details. Hospital Course Rajesh Caba was admitted on 10/17/2018. The following problems were addressed during her hospitalization: She admitted with acute asthma exacerbation and hypoxemia. She had been recently diagnosed with asthma, she has an asthma care plan but she has not been very consistent using the preventive medication for long-term control after diagnosis. She has had significant improvement but she might still need more hospital treatment, however she has 2 daughters at home 12 from 7 years who could be alone if sheis not discharged today. She is adamantly asking to go home and continue her treatment outpatient. She is aware of in case of worsening of her symptoms she needs to be seen immediately in urgent care or in the emergency department. This conversation has been in the presence of her and her RN. They both expressed understanding and they do not have any questions. # Discharge Pain Plan: - Patient currently has NO PAIN and is not being prescribed pain medications on discharge. Significant Results and Procedures See below Pending Results Unresulted Labs Ordered in the Past 30 Days of this Admission No orders found from 08/18/2018 to 10/18/2018. Code Status Full Code Primary Care Physician [facility] GEN: Alert, oriented x 3, appears comfortable, NAD. HEENT: Normocephalic/atraumatic, no scleral icterus, no nasal discharge, mouth moist. CV: Regular rate and rhythm, no murmur or JVD. S1 + S2 noted, no S3 or S4. LUNGS: Speaking in full sentences, not laborious breathing. Not bradypnea or using accessory muscle.Globally diminished to auscultation bilaterally with rhonchi but not wheezes. Symmetric chest rise on inhalation noted. ABD: Active bowel sounds, soft, non-tender/non-distended. No rebound/guarding/rigidity. EXT: No edema or cyanosis. No joint synovitis noted. SKIN: Dry to touch, no exanthems noted in the visualized areas. Discharge Disposition Discharged to home Consultations This Hospital Stay RESPIRATORY CARE IP CONSULT Time Spent on this Encounter IRafael, personally saw the patient today and spent greater than 30 minutes discharging this patient. Discharge Orders Reason for your hospital stay Acute aspirin exacerbation with hypoxemia Follow-up and recommended labs and tests Follow up with primary care provider, [facility], within 7 days for hospital follow- up. No follow up labs or test are needed. Continue your asthma plan as prior to admission at home, complete prednisone taper down as prescribed with scheduled nebulizations of DuoNeb 4 times and using albuterol for rescue dose every 1 or. 2 hour as needed. Flovent inhaler as prescribed by your primary care physician. In case of worsening of your breathingstatus you need to be seen in urgent care or emergency department immediately Activity Your activity upon discharge: activity as tolerated Full Code Diet Follow this diet upon discharge: Orders Placed This Encounter Regular Diet Adult Discharge Medications Current Discharge Medication List START taking these medications Details predniSONE (DELTASONE) 20 MG tablet Take 60 mg by mouth daily for 3 days, THEN 40 mg daily for 3 days, THEN 20 mg daily for 3 days, THEN 10 mg daily for 3 days. Qty: 20 tablet, Refills: 0 Associated Diagnoses: Mild intermittent asthma with acute exacerbation CONTINUE these medications which have NOT CHANGED Details albuterol (2.5 MG/3ML) 0.083% neb solution Take 1 vial by nebulization every 4 hours as needed for wheezing ARIPiprazole (ABILIFY) 10 MG tablet Take 10 mg by mouth every evening buPROPion (WELLBUTRIN XL) 300 MG 24 hr tablet Take 300 mg by mouth every evening clonazePAM (KLONOPIN) 1 MG tablet Take 1 mg by mouth At Bedtime fluticasone (FLOVENT HFA) 110 MCG/ACT inhaler Inhale 1 puff into the lungs 2 times daily ipratropium - albuterol 0.5 mg/2.5 mg/3 mL (DUONEB) 0.5-2.5 (3) MG/3ML neb solution Take 1 vial (3 mLs) by nebulization 4 times daily Qty: 360 mL, Refills: 0 Associated Diagnoses: Acute respiratory failure with hypoxia (H); Reactive airway disease with acute exacerbation, unspecified asthma severity, unspecified whether persistent methylphenidate (RITALIN) 20 MG tablet Take 20 mg by mouth 3 times daily mirtazapine (REMERON) 15 MG tablet Take 15 mg by mouth At Bedtime Multiple Vitamins-Minerals (MULTIVITAMIN ADULT PO) Take 1 tablet by mouth daily zolpidem (AMBIEN) 5 MG tablet Take 5 mg by mouth At Bedtime ALPRAZolam (XANAX) 0.5 MG tablet Take 0.5 mg by mouth daily as needed for anxiety Allergies No Known Allergies Data Most Recent 3 CBC's: Recent Labs Lab Test 10/17/18 1628 01/01/18 0714 12/30/17 1542 12/30/17 1145 WBC 6.6 16.6* -- 8.3 HGB 13.1 12.2 -- 13.6 MCV 95 93 -- 92 PLT 190 219 206 208 Most Recent 3 BMP's: Recent Labs Lab Test 10/17/18 1628 01/01/18 0714 04/14/18 1145 NA 143 145* 142 POTASSIUM 3.5 3.7 4.1 CHLORIDE 109 115* 108 CO2 27 21 28 BUN 11 14 11 CR 0.66 0.76 0.84 ANIONGAP 7 9 6 TAMY 8.2* 9.2 8.9 GLC 135* 133* 120* Most Recent 2 LFT's: Recent Labs Lab Test 12/30/17 1145 AST 22 ALT 41 ALKPHOS 66 BILITOTAL 0.5 Most Recent INR's and Anticoagulation Dosing History: Anticoagulation Dose History There is no flowsheet data to display. Most Recent 3 Troponin's: Recent Labs Lab Test 12/30/17 1145 TROPI <0.015 Most Recent Cholesterol Panel:No lab results found. Most Recent 6 Bacteria Isolates From Any Culture (See EPIC Reports for Culture Details):No lab results found. Most Recent TSH, T4 and A1c Labs: Recent Labs Lab Test 10/19/18 0709 A1C 5.9* Results for orders placed or performed during the hospital encounter of 10/17/18 Chest XR, 1 view PORTABLE Narrative XR CHEST PORT 1 VW 10/17/2018 4:26 PM HISTORY: Dyspnea COMPARISON: 12/30/2017 Impression IMPRESSION: The heart size is normal. There is mild diffuse interstitial prominence. No focal consolidation. No evidence of pneumothorax. TIESHA MAC MD Disclaimer: This note consists of symbols derived from keyboarding, dictation and/or voice recognition software. As a result, there may be errors in the script that have gone undetected. Please consider this when interpreting information found in this chart. ISSIONING EDITOR documented in this encounter Medications at Time of Discharge Medication Sig Dispensed Refills Start Date End Date albuterol (2.5 MG/3ML) Take 1 vial by 0 0.083% neb solution nebulization every 4 hours as needed for wheezing ALPRAZolam (XANAX) 0.5 Take 0.5 mg by mouth 0 MG tablet nightly as needed for anxiety ARIPiprazole (ABILIFY) Take 10 mg by mouth 0 10 MG tablet At Bedtime methylphenidate Take 20 mg by mouth 3 0 (RITALIN) 20 MG tablet times daily Multiple Take 1 tablet by 0 Vitamins-Minerals mouth daily (MULTIVITAMIN ADULT PO) zolpidem (AMBIEN) 10 MG Take 10 mg by mouth 0 tablet At Bedtime predniSONE (DELTASONE) Take 60 mg by mouth 20 tablet 0 09/201810/31/2018 20 MG tabletIndications: daily for 3 days, Mild intermittent asthma THEN 40 mg daily for with acute exacerbation 3 days, THEN 20 mg daily for 3 days, THEN 10 mg daily for 3 days. buPROPion (WELLBUTRIN Take 300 mg by mouth 0 02/17/2020 XL) 300 MG 24 hr tablet every evening clonazePAM (KLONOPIN) 1 Take 1 mg by mouth At 0 02/17/2020 MG tablet Bedtime fluticasone (FLOVENT Inhale 1 puff into 0 02/17/2020 HFA) 110 MCG/ACT inhaler the lungs 2 times daily ipratropium - albuterol Take 1 vial (3 mLs) 360 mL 0 02/17/2020 0.5 mg/2.5 mg/3 mL by nebulization 4 (DUONEB) 0.5-2.5 (3) times daily MG/3ML neb solutionIndications: Acute respiratory failure with hypoxia (H), Reactive airway disease with acute exacerbation, unspecified asthma severity, unspecified whether persistent mirtazapine (REMERON) 15 Take 15 mg by mouth 0 02/17/2020 MG tablet At Bedtime documented as of this encounter Progress Notes Yuridia Watts RN - 10/19/2018 1:02 PM CST Patient alert and oriented x4. Up independent in room. On 9L oxygen at start of shift, weaned to 7L sats in the mid 90s. Patient wanting go discharge due to family concerns. Discharged home this afternoon, providing transport. Patient 88% on MD JACQUE aware and is okay with patient discharging, due to having asthma plan in place, and patient is not in acute distress. Patient will picking machine operator her newRx at her pharmacy on her way home. Loadmaster discussed discharge instructions with patient and . Both understanding instructions, patient will call later this afternoon to schedule an appointment with her PCP. All of her belongings were sent with patient. Patient and did not have any further questions or concerns. ISSIONING EDITOR Cassandra Mercado MD - 10/19/2018 12:20 AM CST X-cover Called re: Increasing O2 to 8 L/nc. Per my discussion with Kamala, patient snoring and denying any SOB. Insulin orders in, asked that RN call RT to see if better O2 delivery is available. B-given 7 unit(s), dropped to 335 so given 7 unit(s) more ISS ordered Likely needs some long acting insulin (glargine vs NPH) ISSIONING EDITOR Kamala Jones RN - 10/18/2018 11:59 PM CST paged- Increased 02 to 8L NC 91%, Resp. 20 at rest, HR 104 Reg, Blood sugar also 356. New insulin orders received. 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 ?? 1. Increasing shortness of breath, wheezing, coughing spells with acute hypoxic respiratory failure secondary to bronchial asthma exacerbation 2. Hyperreactive airway disease 3. History of depression 4. History of anxiety 5. History of ADD Continuing CARE today. Continue with oxygen supplementation and may taper and discontinue if able. Remain on breathing treatments. IV steroids but will decrease to every 12 hours. She finished prednisone treatment recently presumptive bronchial asthma exacerbation. Will recommend taper with Medrol Dosepak upon discharge. We will not provide any antibiotics for now. He underwent pulmonary function tests upon follow-up on her last hospitalization for shortness of breath and was found with bronchial asthma at that time. IV steroids. As needed antitussive. Resumption of her medications for anxiety and depression. Patient is a non-smoker. DVT Prophylaxis: Pneumatic Compression Devices Code Status: Full Code Discharge Dispo: Home Estimated Disch Date / # of Days until Disch: 24 hours if continues to improve her shortness of breath and supplementation. Interval History (Subjective): Continuing hospitalist service care today. Seen and examined. Chart reviewed. She is feeling a whole lot better and stated decreasing episodes of coughing spells, decreased wheezing and less short of breath. She is still talking in full sentences, tolerating oral diet. Slept well overnight. No reported mental status changes. Remained afebrile. However still requiring oxygen supplementation. # Pain Assessment: Current Pain Score 10/18/2018 Patient currently in pain? denies Pain score (0-10) 0 Rajesh???s pain level was assessed and she currently denies pain. Physical Exam: Last Vital Signs: BP 113/57 (BP Location: Left arm) Pulse 100 Temp 98.5 ??F (36.9 ??C) (Oral) Resp 18 Ht 1.829m (6') Wt 103.9 kg (229 lb 1.6 oz) SpO2 91% BMI 31.07 kg/m?? I/O last 3 completed shifts: In: 500 [P.O.:500] Out: - Wt Readings from Last 1 Encounters: 10/17/18 103.9 kg (229 lb 1.6 oz) Vitals: 10/17/182018 Weight: 103.9 kg (229 lb 1.6 oz) Constitutional: Awake, alert, cooperative, no apparent distress Respiratory: Fair air entry, multiple obvious scattered wheezes on posterior and anterior auscultation Cardiovascular: Regular rate and rhythm, normal S1 and S2, and no murmur noted Abdomen: Normal bowel sounds, soft, non-distended, non-tender Skin: No rashes, no cyanosis, dry to touch Neuro: Alert and oriented x3, no weakness, spontaneous and coherent speech Extremities: No edema, normal range of motion Other(s): Euthymic mood, not agitated All other systems: Negative Medications: All current medications were reviewed with changes reflected in problem list. Data: All new lab and imaging data was reviewed. Labs: No results for input(s): CULT in the last 168 hours. Recent Labs Lab 10/17/18 1628 WBC 6.6 HGB 13.1 HCT 40.1 MCV 95 PLT 190 Recent Labs Lab 10/17/18 1628 NA 143 POTASSIUM 3.5 CHLORIDE 109 CO2 27 ANIONGAP 7 GLC 135* BUN 11 CR 0.66 GFRESTIMATED >90 GFRESTBLACK >90 TAMY 8.2* No results for input(s): SED, CRP in the last 168 hours. Recent Labs Lab 10/17/18 2139 10/17/18 1628 GLC -- 135* BGM 118* -- No results for input(s): INR in the last 168 hours. No results for input(s): TROPONIN, TROPI, TROPR in the last 168 hours. Invalid input(s): TROP, TROPONINIES No results for input(s): COLOR, APPEARANCE, URINEGLC, URINEBILI, URINEKETONE, SG, UBLD, URINEPH, PROTEIN, UROBILINOGEN, NITRITE, LEUKEST, RBCU, WBCU in the last 168 hours. Imaging: Results for orders placed or performed during the hospital encounter of 10/17/18 Chest XR, 1 view PORTABLE Narrative XR CHEST PORT 1 VW 10/17/2018 4:26 PM HISTORY: Dyspnea COMPARISON: 12/30/2017 Impression IMPRESSION: The heart size is normal. There is mild diffuse interstitial prominence. No focal consolidation. No evidence of pneumothorax. TIESHA MAC MD ISSIONING EDITOR Monserrat Payne RT - 10/17/2018 9:04 PM CST Date: 10/17/2018 Admission Dx: Asthma Pulmonary hx: Asthma Home nebulizer/MDI: Albuterol, Flovent Home oxygen: None Acuity level (RCAT flow sheet): 3 Aerosol therapy initiated: Albuterol QID, Albuterol Q4 PRN, Arnuity QD Pulmonary hygiene initiated: None Volume expansion initiated: IS TID Current oxygen requirements: 6 LPM NC Current spo2: 92% Re-evaluation date: 10/20/2018 Patient education: Encourage IS use. Monserrat Payne RRT ISSIONING EDITOR documented in this encounter H&P Notes Duane, Al Gilbert, MD - 10/17/2018 7:26 PM CST [facility] Hospitalist Admission Note Name: Rajesh Caba Date of : 1970 Age: [age] year old Date of admission: 10/17/2018 Primary care provider: Francesca, Negin Cee Assessment and Plan: Rajesh Caba is a 48 year old female with prior diagnosis of bronchial asthma, hyperreactiveairway, previous hospitalization for asthma and exacerbation back in December 2017 and was seen recently in the outpatient setting for complaints of increasing shortness of breath, coughing spells and decreasing exercise tolerance with audible wheezing. 1. Increasing shortness of breath, wheezing, coughing spells with acute hypoxic respiratory failure secondary to bronchial asthma exacerbation 2. Hyperreactive airway disease 3. History of depression 4. History of anxiety 5. History of ADD Admit as inpatient. Continue with oxygen support. Duo nebs and albuterol as needed. Of note patient has some prior lactic acidosis secondary to albuterol use on her last hospitalization. Lactic acid upon presentation is normal. No obvious signs of infectious process. We will not provide any antibiotics for now. He underwent pulmonary function tests upon follow-up on her last hospitalization for shortness of breath and was found with bronchial asthma at that time. IV steroids. As needed antitussive. Resumption of her medications for anxiety and depression. Patient is a non-smoker. Code status: Full code Admit to inpatient Prophylaxis: PCD's disposition: Home in 1-2 days. Chief Complaint: Worsening shortness of breath and wheezing over the course of several weeks duration Source of Information: Patient with good reliability Discussion with ED physician Review of E chart records History of Present Illness: Rajesh Caba is a 48 year old female with prior diagnosis of bronchial asthma, hyperreactiveairway, previous hospitalization for asthma and exacerbation back in December 2017 and was seen recently in the outpatient setting for complaints of increasing shortness of breath, coughing spells and decreasing exercise tolerance with audible wheezing. She was treated with oral antibiotics and tapering dose of steroids which provided some relief of symptomatology but once after she gets up from her steroids she started to have some recurrence of similar complaints. In the past 3 days she is been working hard with her breathing and has been using very frequently her inhalers at home that was not providing much relief of symptoms hence this emergency room visit. Upon presentation she was found to be in respiratory distress, with tachypnea, and hypoxia documented at 87% on room air. She was started onbreathing treatments, oxygen support and had some relief of symptoms but still requiring oxygen suppl ementation. During the time examination she is ready feeling slightly better as she is able to talk in full longsentences without complaints of worsening shortness of breath. Past Medical History: No past medical history on file. Past Surgical History: No past surgical history on file. Social History: Social History Tobacco Use ??? Smoking status: Never Smoker ??? Smokeless tobacco: Never Used Substance Use Topics ??? Alcohol use: Not on file Family History: Family history was fully reviewed and non-contributory in this case. Allergies: No Known Allergies Medications: Prior to Admission medications Medication Sig Last Dose Taking? Auth Provider albuterol (2.5 MG/3ML) 0.083% neb solution Take 1 vial by nebulization every 4 hours as needed for wheezing 10/17/2018 at x2 Yes Unknown, Entered By History ARIPiprazole (ABILIFY) 10 MG tablet Take 10 mg by mouth every evening 10/16/2018 at pm Yes Unknown, Entered By History buPROPion (WELLBUTRIN XL) 300 MG 24 hr tablet Take 300 mg by mouth every evening 10/16/2018 at pm YesUnknown, Entered By History clonazePAM (KLONOPIN) 1 MG tablet Take 1 mg by mouth At Bedtime 10/16/2018 at pm Yes Unknown, EnteredBy History fluticasone (FLOVENT HFA) 110 MCG/ACT inhaler Inhale 1 puff into the lungs 2 times daily 10/16/2018 at Unknown time Yes Unknown, Entered By History ipratropium - albuterol 0.5 mg/2.5 mg/3 mL (DUONEB) 0.5-2.5 (3) MG/3ML neb solution Take 1 vial (3 mLs) by nebulization 4 times daily 10/17/2018 at x2 Yes Tarah Martínez MD methylphenidate (RITALIN) 20 MG tablet Take 20 mg by mouth 3 times daily 10/17/2018 at x1 Yes Unknown, Entered By History mirtazapine (REMERON) 15 MG tablet Take 15 mg by mouth At Bedtime 10/16/2018 at pm Yes Unknown, Entered By History Multiple Vitamins-Minerals (MULTIVITAMIN ADULT PO) Take 1 tablet by mouth daily 10/16/2018 at Unknowntime Yes Unknown, Entered By History zolpidem (AMBIEN) 5 MG tablet Take 5 mg by mouth At Bedtime 10/16/2018 at pm Yes Unknown, Entered By History ALPRAZolam (XANAX) 0.5 MG tablet Take 0.5 mg by mouth daily as needed for anxiety Unknown at Unknowntime Unknown, Entered By History Review of Systems: A Comprehensive greater than 10 system review of systems was carried out. Pertinent positives and negatives are noted above. Otherwise negative for contributory information. Physical Exam: Blood pressure 135/76, pulse 109, temperature 98.2 ??F (36.8 ??C), temperature source Oral, resp. rate 12, SpO2 90 %. Wt Readings from Last 1 Encounters: No data found for Wt Exam: GENERAL: No apparent distress. Awake, alert, and fully oriented. HEENT: Normocephalic, atraumatic. Extraocular movements intact. CARDIOVASCULAR: Tight air entry, obvious scattered wheezes on all lung alatorre PULMONARY: Clear to auscultation, no wheezes, crackles ABDOMINAL: Soft, non-tender, non-distended. Bowel sounds normoactive. No hepatosplenomegaly. EXTREMITIES: No cyanosis or clubbing. No edema. NEUROLOGICAL: CN 2-12 grossly intact, awake and alert x3, spontaneous and coherent speech. no focal neurological deficits. DERMATOLOGICAL: No rash, ulcer, ecchymoses, jaundice. Psych: not agitation, not combative, pleasant mood Lymph nodes: no obvious palpable cervical or axillary lymphadenopathy Data: EKG: None seen Imaging: Recent Results (from the past 48 hour(s)) Chest XR, 1 view PORTABLE Narrative XR CHEST PORT 1 VW 10/17/2018 4:26 PM HISTORY: Dyspnea COMPARISON: 12/30/2017 Impression IMPRESSION: The heart size is normal. There is mild diffuse interstitial prominence. No focal consolidation. No evidence of pneumothorax. TIESHA MAC MD Labs: No results for input(s): CULT in the last 168 hours. No results for input(s): PH, PHARTERIAL, PO2, GO9HOPEXEIR, SAT, PCO2, HCO3, BASEEXCESS, CRISTIAN, BEB in the last 168 hours. Invalid input(s): [id number] Recent Labs Lab 10/17/18 1628 WBC 6.6 HGB 13.1 HCT 40.1 MCV 95 PLT 190 Recent Labs Lab 10/17/18 1628 NA 143 POTASSIUM 3.5 CHLORIDE 109 CO2 27 ANIONGAP 7 GLC 135* BUN 11 CR 0.66 GFRESTIMATED >90 GFRESTBLACK >90 TAMY 8.2* No results for input(s): SED, CRP in the last 168 hours. Recent Labs Lab 10/17/18 1628 GLC 135* No results for input(s): INR in the last 168 hours. No results for input(s): TROPONIN, TROPI, TROPR in the last 168 hours. Invalid input(s): TROP, TROPONINIES No results for input(s): COLOR, APPEARANCE, URINEGLC, URINEBILI, URINEKETONE, SG, UBLD, URINEPH, PROTEIN, UROBILINOGEN, NITRITE, LEUKEST, RBCU, WBCU in the last 168 hours. ISSIONING EDITOR documented in this encounter ED Notes Arianna Cain RN - 10/17/2018 6:16 PM CST [facility] ED Nurse Handoff Report Rajesh Caba is a 48 year old female ED Chief complaint: Shortness of Breath . ED Diagnosis: Final diagnoses: Severe persistent reactive airway disease with status asthmaticus Hypoxia Allergies: No Known Allergies Code Status: Full Code Activity level - Baseline/Home: Independent. Activity Level - Current: Independent. Lift room needed: No. Bariatric: No Photo Checker And Assembler Needed: No Isolation: No. Infection: Not Applicable. Vital Signs: Vitals: 10/17/18 1745 10/17/18 1753 10/17/18 1800 10/17/18 1815 BP: 132/76 135/76 Pulse: 98 109 Resp: 16 21 12 Temp: TempSrc: SpO2: (!) 89% 93% (!) 89% 90% Cardiac Rhythm: , Pain level: 0-10 Pain Scale: 0 Patient confused: No. Patient Falls Risk: No. Elimination Status: Has voided Patient Report - Initial Complaint: Asthma exacerbation over past few days. Worsened today. Recentlyfinished steroids for previous attack. Seen at urgent care and given neb prior to arrival. Focused Assessment: Inspiratory and expiratory wheezing throughout. Patient sitting upright with accessory muscle use. O2 sats on 6L oxygen in high 80s. Patient states she actually feels improved from earlier inthe day. Tests Performed: xray, labs. Abnormal Results: Labs Ordered and Resulted from Time of ED Arrival Up to the Time of Departure from the ED CBC WITH PLATELETS DIFFERENTIAL - Abnormal; Notable for the following components: Result Value Absolute Eosinophils 0.8 (*) All other components within normal limits BASIC METABOLIC PANEL - Abnormal; Notable for the following components: Glucose 135 (*) Calcium 8.2 (*) All other components within normal limits ISTAT GASES LACTATE AUTUMN POCT - Abnormal; Notable for the following components: PO2 Venous 55 (*) All other components within normal limits Chest XR, 1 view PORTABLE Final Result IMPRESSION: The heart size is normal. There is mild diffuse interstitial prominence. No focal consolidation. No evidence of pneumothorax. TIESHA MAC MD . Treatments provided: duonebs x 3, magnesium 2gm IVPB, continuous neb Family Comments: family has gone home for the night OBS brochure/video discussed/provided to patient: No ED Medications: Medications ipratropium - albuterol 0.5 mg/2.5 mg/3 mL (DUONEB) 0.5-2.5 (3) MG/3ML neb solution (not administered) albuterol (PROVENTIL) continous nebulization 10 mg (0 mg Nebulization Stopped 10/17/181752) magnesium sulfate 2 g in NS intermittent infusion (PharMEDium or FV Cmpd) (0 g Intravenous Stopped 10/17/181652) Drips infusing: No For the majority of the shift, the patient's behavior Green. Interventions performed were none. Severe Sepsis OR Septic Shock Diagnosis Present: No ED Nurse Name/Phone Number: Alicia Guidry, 6:16 PM RECEIVING UNIT ED HANDOFF REVIEW Above ED Nurse Handoff Report was reviewed: Yes Reviewed by: Arianna Nicole Che on October 17, 2018 at 7:51 PM John Chang RN - 10/17/2018 4:01 PM CST Pt presents with SOB. Has been SOB for week, worsening over last couple days. Was at [facility], give 40 mg IM kenalog and 1 duoneb and sent here. Pt SATs 87% on RA during triage. ISSIONING EDITOR Odin Cobian MD - 10/17/2018 3:54 PM CST History Chief Complaint: Shortness of Breath The history is provided by the patient. Rajesh Caba is a 48 year old female with history of asthma symptoms who presents with shortness of breath. The patient has never had a history of asthma or breathing problems in the past until9 months ago, when she was admitted to the hospital for acute hypoxic respiratory failure secondary to possible asthma. Last week, the patient states she had been feeling ill with cough and shortness of breath, and she was started on a course of prednisone. The patient states that as soon as she finished the prednisone course, she started to feel short of breath again. Today, she states that the shortness of breath exacerbated, and she presented [facility] , where she was given 1 Duoneb and 40 mgIM kenalog and sent here to the ED. The patient's SATs was 87% on RA during triage. The patient notes that she has not yet been seen by medicaid specialist for these episodes. Allergies: No known drug allergies Medications: Albuterol Xanax Remeron Wellbutrin Klonopin Ritalin Ambien Past Medical History: Asthma Past Surgical History: History reviewed. No pertinent surgical history. Family History: History reviewed. No pertinent family history. Social History: PCP: Negin Weaver [facility] Marital Status: Smoking status: never Review of Systems Constitutional: Negative for fever. Respiratory: Positive for cough, shortness of breath and wheezing. Cardiovascular: Negative for chest pain, palpitations and leg swelling. Gastrointestinal: Negative for diarrhea, nausea and vomiting. All other systems reviewed and are negative. Physical Exam Patient Vitals for the past 24 hrs: BP Temp Temp src Pulse Heart Rate Resp SpO2 10/17/18 1815 -- -- -- -- 88 12 90 % 10/17/18 1800 135/76 -- -- 109 97 21 (!) 89 % 10/17/18 1753 -- -- -- -- -- -- 93 % 10/17/18 1745 132/76 -- -- 98 94 16 (!) 89 % 10/17/18 1730 142/74 -- -- 96 93 16 (!) 88 % 10/17/18 1726 -- -- -- -- 98 17 (!) 88 % 10/17/18 1723 -- -- -- -- 95 16 (!) 87 % 10/17/18 1715 159/76 -- -- 101 98 19 (!) 87 % 10/17/18 1700 119/78 -- -- 104 93 15 (!) 89 % 10/17/18 1645 131/81 -- -- 96 103 10 90 % 10/17/18 1630 (!) 127/94 -- -- 103 112 11 90 % 10/17/18 1615 128/81 -- -- 105 112 15 (!) 88 % 10/17/18 1602 144/83 98.2 ??F (36.8 ??C) Oral -- 100 20 (!) 87 % 10/17/18 1600 144/83 -- -- 106 -- -- (!) 88 % Physical Exam Vital signs and nursing notes reviewed. Constitutional: laying on gurney appears uncomfortable due to dyspnea HENT: Oropharynx is clear and moist Eyes: Conjunctivae are normal bilaterally. Pupils equal Neck: normal range of motion Cardiovascular: Normal rate, regular rhythm, normal heart sounds. Pulmonary/Chest: Moderate respiratory distress. Diffuse wheezing bilaterally, No rales or rhonchi noted. Abdominal: Soft. Bowel sounds are normal. No tenderness to palpation. No rebound or guarding. Musculoskeletal: No joint swelling or edema. Neurological: Alert and oriented. No focal weakness Skin: Skin is warm and dry. No rash noted. Psych: normal affect Emergency Department Course Imaging: Radiographic findings were communicated with the patient who voiced understanding of the findings. Chest XR 1 view PORTABLE Impression: The heart size is normal. There is mild diffuse interstitial prominence. No focal consolidation. No evidence of pneumothorax. As read by Radiology. Laboratory: ISTAT gases: PO2 55, PCO2 47, Ph 7.38, Bicarbonate 27, O2 sat 87, lactic acid 0.8 CBC: WNL (WBC 6.6, HGB 13.1, PLT 190) BMP: glucose 135, calcium 8.2, creatinine 0.66 Interventions: 1625: magnesium sulfate 2 g, IV 1653: Proventil continuous nebulization 10 mg Emergency Department Course: Past medical records, nursing notes, and vitals reviewed. 1607: I performed an exam of the patient and obtained history, as documented above. IV inserted and blood drawn. Bedside Xray was obtained, findings above. 1659: I rechecked the patient. Explained findings to the patient. Findings and plan explained to the Patient who consents to admission. Discussed the patient with Dr. Zepeda, who will admit the patient to a [facility] bed for further monitoring, evaluation, and treatment. Impression & Plan Medical Decision Making: Rajesh Caba is a 48 year old female who presents with respiratory distress. She was seen at an outlying facility, given a nebulizer treatment as steroid without much improvement. On arrival she was hypoxic in the mid upper 80's. She was given Duoneb treatments and magnesium. With persistent monitoring, she did have improvement of her respiratory distress, but was still requiring supplemental oxygen to maintain her oxygen saturations above 90%. We also give her a continuous albuterol nebulization treatment over an hour. At recheck, she appeared more comfortable, but was still requiring oxygensupplementation. The patient will require admission for further respiratory care and treatment due to her hypoxia. There is no indication she has a pulmonary embolus or pneumonia based on Xray, clinical history, and findings on exam. I discussed this with the patient, and she is in agreement with the plan. I discussed with Dr. Zepeda, who graciously accepts the patient for admission. Diagnosis: ICD-10-CM 1. Severe persistent reactive airway disease with status asthmaticus J45.52 2. Hypoxia R09.02 Disposition: Admitted to [facility] Payton Cantrell, am serving as a scribe at 4:07 PM on 10/17/2018 to document services personally performed by Odin Cobian MD based on my observations and the provider's statements to me. Payton Vidal 10/17/2018 [facility] EMERGENCY DEPARTMENT Odin Cobian MD 10/18/18 1204 ISSIONING EDITOR documented in this encounter Miscellaneous Notes Plan of Care - Kamala Jones RN - 10/19/2018 6:50 AM CST Ambulatory Status: Pt up ind in room VS: TMax 99.0, P 90-114, R 18-20, BP 109/60, O2 92-93% on 9L oximizer Pain: denies Resp: LS coarse exp wheeze Pt c/o SOB when walking to the bathroom GI: Denies nausea. reg diet. BS active Passing flatus. Last BM 10-17-2018. : voiding adequately BG 356,335,366,283, Insulin ordered and given ISSIONING EDITOR Plan of Care - Sylwia Blankenship RN - 10/18/2018 10:59 PM CST Ambulatory Status: Pt up independently. VS: VSS, tachy, 6L o2 Pain: Denies Resp: LS coarse/crackles, some exp wheezes GI: denies nausea. good appetite and on regular diet. BS active. Passing flatus. Last BM today. : WNL Skin: tattoos, intact Tx: IV solumedrol, oxygen, nebs Labs: Hyperglycemic, no insulin orders Consults: na Disposition: plan to wean o2 as able, dispo TBD ISSIONING EDITOR Plan of Care - Cookie Dickinson RN - 10/18/2018 2:52 PM CST Ambulatory Status: Pt up independently in her room. VS: T 98.5, P 100, R 18, BP 113/57, O2 92% on L via NC Pain: Pt denies any pain Resp: LS coarse lung sounds throughout. Pt reports SOB with activity. Pt denies any chest pain GI: Denies nausea. Fair appetite and on reg diet. BS audible and active throughout. Passing flatus. Last BM 10-17-2018. : Bathroom voiding Skin: Peripheral IV SL Consults: Respatory following Disposition: Possible discontinue in AM ISSIONING EDITOR Plan of Care - Salina Francis RN - 10/18/2018 5:00 AM CST Pt tachy. Denies pain. LS insp & exp wheezes t/o. Cough noted. Reports SOB, on O2 6 lpm w/sats in low 90's. Regular diet. Reports voiding ok. Up independently. PIV SL. Tx: Solumedrol & nebs. ISSIONING EDITOR Plan of Care - Arianna Cain RN - 10/17/2018 10:36 PM CST Vital signs: Temp: 99.8 ??F (37.7 ??C) Temp src: Oral BP: 131/62 Pulse: 102 Heart Rate: 98 Resp: 16 SpO2: 92 % Neuros: Intact GI: bowel sounds positive x 4 : voiding well SKIN: intact except for tattoos on back Activity: Up independently in room Diet: regular Pain: c/o headache 12/26 and had tylenol with relief Plan: oxygen, duonebs and steroids Patient admitted at 2000 from ED. Here with SOB r/t asthma exacerbation. On 6 L of oxygen. Independent in room. ISSIONING EDITOR Pharmacy-Admission Medication History - Mely Cordoba, [facility] - 10/17/2018 6:35 PM CST Admission medication history interview status for this patient is complete. See [facility] admission navigator for allergy information, prior to admission medications and immunization status. Medication history interview source(s):Patient Medication history resources (including written lists, pill bottles, clinic record):[facility], Care everywhere Primary pharmacy:[facility] Changes made to PLANNER CHIEF medication list: Added: Remeron, Flovent Deleted: Prednisone Changed: Wellbutrin from 450mg to 300mg, clonazepam from 2mg to 1mg Actions taken by pharmacist (provider contacted, etc):None Additional medication history information:None Medication reconciliation/reorder completed by provider prior to medication history? No Do you take OTC medications (eg tylenol, ibuprofen, fish oil, eye/ear drops, etc)? Y Prior to Admission medications Medication Sig Last Dose Taking? Auth Provider albuterol (2.5 MG/3ML) 0.083% neb solution Take 1 vial by nebulization every 4 hours as needed for wheezing 10/17/2018 at x2 Yes Unknown, Entered By History ARIPiprazole (ABILIFY) 10 MG tablet Take 10 mg by mouth every evening 10/16/2018 at pm Yes Unknown, Entered By History buPROPion (WELLBUTRIN XL) 300 MG 24 hr tablet Take 300 mg by mouth every evening 10/16/2018 at pm YesUnknown, Entered By History clonazePAM (KLONOPIN) 1 MG tablet Take 1 mg by mouth At Bedtime 10/16/2018 at pm Yes Unknown, EnteredBy History fluticasone (FLOVENT HFA) 110 MCG/ACT inhaler Inhale 1 puff into the lungs 2 times daily 10/16/2018 at Unknown time Yes Unknown, Entered By History ipratropium - albuterol 0.5 mg/2.5 mg/3 mL (DUONEB) 0.5-2.5 (3) MG/3ML neb solution Take 1 vial (3 mLs) by nebulization 4 times daily 10/17/2018 at x2 Yes Tarah Martínez MD methylphenidate (RITALIN) 20 MG tablet Take 20 mg by mouth 3 times daily 10/17/2018 at x1 Yes Unknown, Entered By History mirtazapine (REMERON) 15 MG tablet Take 15 mg by mouth At Bedtime 10/16/2018 at pm Yes Unknown, Entered By History Multiple Vitamins-Minerals (MULTIVITAMIN ADULT PO) Take 1 tablet by mouth daily 10/16/2018 at Unknowntime Yes Unknown, Entered By History zolpidem (AMBIEN) 5 MG tablet Take 5 mg by mouth At Bedtime 10/16/2018 at pm Yes Unknown, Entered By History ALPRAZolam (XANAX) 0.5 MG tablet Take 0.5 mg by mouth daily as needed for anxiety Unknown at Unknowntime Unknown, Entered By History ISSIONING EDITOR documented in this encounter Plan of Treatment Not on filedocumented as of this encounter Procedures Procedure Name Priority Date/Time Associated Diagnosis Comme nts GLUCOSE BY METER Routine 10/19/2018 11:45 Severe persistent Re sults for this AM COMMISSIONING EDITOR reactive airway procedure ar e in disease with status the resu lts asthmaticus section. GLUCOSE BY METER Routine 10/19/2018 8:55 AM Severe persistent Results for this COMMISSIONING EDITOR reactive airway procedure ar e in disease with status the resu lts asthmaticus section. HEMOGLOBIN A1C Routine 10/19/2018 7:09 AM Severe persistent Re sults for this COMMISSIONING EDITOR reactive airway procedure ar e in disease with status the resu lts asthmaticus section. GLUCOSE BY METER Routine 10/19/2018 6:27 AM Severe persistent Results for this COMMISSIONING EDITOR reactive airway procedure ar e in disease with status the resu lts asthmaticus section. GLUCOSE BY METER Routine 10/19/2018 2:44 AM Severe persistent Results for this COMMISSIONING EDITOR reactive airway procedure ar e in disease with status the resu lts asthmaticus section. GLUCOSE BY METER Routine 10/19/2018 12:34 Severe persistent Re sults for this AM COMMISSIONING EDITOR reactive airway procedure ar e in disease with status the resu lts asthmaticus section. GLUCOSE BY METER Routine 10/18/2018 11:49 Severe persistent Re sults for this PM COMMISSIONING EDITOR reactive airway procedure ar e in disease with status the resu lts asthmaticus section. GLUCOSE BY METER Routine 10/18/2018 9:46 PM Severe persistent Results for this COMMISSIONING EDITOR reactive airway procedure ar e in disease with status the resu lts asthmaticus section. GLUCOSE BY METER Routine 10/18/2018 5:40 PM Severe persistent Results for this COMMISSIONING EDITOR reactive airway procedure ar e in disease with status the resu lts asthmaticus section. GLUCOSE BY METER Routine 10/17/2018 9:39 PM Severe persistent Results for this COMMISSIONING EDITOR reactive airway procedure ar e in disease with status the resu lts asthmaticus section. RESPIRATORY THERAPY Routine 10/17/2018 8:16 PM TO INSTRUCT COMMISSIONING EDITOR CBC WITH PLATELETS & STAT 10/17/2018 4:28 PM R esults for this DIFFERENTIAL COMMISSIONING EDITOR procedure are i n the results section. BASIC METABOLIC PANEL STAT 10/17/2018 4:28 PM Results for this COMMISSIONING EDITOR procedure are i n the results section. XR CHEST PORT 1 VIEW STAT 10/17/2018 4:26 PM R esults for this COMMISSIONING EDITOR procedure are i n the results section. ISTAT GASES LACTATE Routine 10/17/2018 4:12 PM Re sults for this VENOUS POCT COMMISSIONING EDITOR procedure are i n the results section. documented in this encounter Results (ABNORMAL) Glucose by meter (10/19/2018 11:45 AM COMMISSIONING EDITOR) P athologist Signature Glucose 238 (H) 70 - 99 10/19/2018 POINT OF CARE mg/dL 12:07 PM COMMISSIONING EDITOR TEST, GLUCOSE Specimen Anatomical Collection Method Collection Time Receive d Time (Source) Location / / Volume Laterality 10/19/2018 11:45 10/19/2018 AM COMMISSIONING EDITOR 12:07 PM COMMISSIONING EDITOR Kulwant DE OLIVEIRA - LILI POCT Performing Organization Address City/[facility]/ZIP Code Phon e Number [facility] POINT OF CARE TEST, GLUCOSE POINT OF CARE TEST, GLUCOSE (ABNORMAL) Glucose by meter (10/19/2018 8:55 AM COMMISSIONING EDITOR) P athologist Signature Glucose 284 (H) 70 - 99 10/19/2018 POINT OF CARE mg/dL 9:07 AM COMMISSIONING EDITOR TEST, GLUCOSE Specimen Anatomical Collection Method Collection Time Receive d Time (Source) Location / / Volume Laterality 10/19/2018 8:55 AM 9 9:07 COMMISSIONING EDITOR AM COMMISSIONING EDITOR Kulwant DE OLIVEIRA - LILI POCT Performing Organization Address [facility] Phon e Number [facility] POINT OF CARE TEST, GLUCOSE POINT OF CARE TEST, GLUCOSE (ABNORMAL) Hemoglobin A1c (10/19/2018 7:09 AM COMMISSIONING EDITOR) athologist Signature Hemoglobin A1C 5.9 (H) 0 - 5.6 % 10/19/2018 [place] 7:57 AM [facility] Comment: Normal <5.7% Prediabetes 5.7-6.4% ??Diab etes 6.5% or higher - adopted from ADA consensus guidelines. Specimen Anatomical Collection Method Collection Time Receive d Time (Source) Location / / Volume Laterality Blood specimen 10/19/2018 7:09 AM 019 7:10 (specimen) COMMISSIONING EDITOR AM COMMISSIONING EDITOR Cassandra Mercado MD LAB - BLOOD ORDERABLES Performing Organization Address City/[facility]/ZIP Code Phon e Number [facility] [address] [place], [place] [address] [facility] [address] [place], [place] [address] [phone] (ABNORMAL) Glucose by meter (10/19/2018 6:27 AM COMMISSIONING EDITOR) P athologist Signature Glucose 283 (H) 70 - 99 10/19/2018 POINT OF CARE mg/dL 6:39 AM COMMISSIONING EDITOR TEST, GLUCOSE Specimen Anatomical Collection Method Collection Time Receive d Time (Source) Location / / Volume Laterality 10/19/2018 6:27 AM 9 6:39 COMMISSIONING EDITOR AM COMMISSIONING EDITOR Kulwant DE OLIVEIRA - LILI POCT Performing Organization Address City/[facility]/ZIP Code Phon e Number [facility] POINT OF CARE TEST, GLUCOSE POINT OF CARE TEST, GLUCOSE (ABNORMAL) Glucose by meter (10/19/2018 2:44 AM COMMISSIONING EDITOR) P athologist Signature Glucose 366 (H) 70 10/19/2018 POINT OF CARE mg/dL 2:56 AM COMMISSIONING EDITOR TEST, GLUCOSE Specimen Anatomical Collection Method Collection Time Receive d Time (Source) Location / / Volume Laterality 10/19/2018 2:44 AM 9 2:56 COMMISSIONING EDITOR AM COMMISSIONING EDITOR Kulwant DE OLIVEIRA - LILI POCT Performing Organization Address City/State/ZIP Code Phon e Number [facility] POINT OF CARE TEST, GLUCOSE POINT OF CARE TEST, GLUCOSE (ABNORMAL) Glucose by meter (10/19/2018 12:34 AM COMMISSIONING EDITOR) P athologist Signature Glucose 335 (H) 70 - 99 10/19/2018 POINT OF CARE mg/dL 12:54 AM COMMISSIONING EDITOR TEST, GLUCOSE Specimen Anatomical Collection Method Collection Time Receive d Time (Source) Location / / Volume Laterality 10/19/2018 12:34 10/19/2018 AM COMMISSIONING EDITOR 12:54 AM COMMISSIONING EDITOR Kulwant DE OLIVEIRA - LILI POCT Performing Organization Address City/State/ZIP Code Phon e Number [facility] POINT OF CARE TEST, GLUCOSE POINT OF CARE TEST, GLUCOSE (ABNORMAL) Glucose by meter (10/18/2018 11:49 PM COMMISSIONING EDITOR) P athologist Signature Glucose 356 (H) 70 - 99 10/19/2018 POINT OF CARE mg/dL 12:01 AM COMMISSIONING EDITOR TEST, GLUCOSE Specimen Anatomical Collection Method Collection Time Receive d Time (Source) Location / / Volume Laterality 10/18/2018 11:49 10/19/2018 PM COMMISSIONING EDITOR 12:01 AM COMMISSIONING EDITOR Kulwant DE OLIVEIRA - LILI POCT Performing Organization Address [facility] Phon e Number [facility] POINT OF CARE TEST, GLUCOSE POINT OF CARE TEST, GLUCOSE (ABNORMAL) Glucose by meter (10/18/2018 9:46 PM COMMISSIONING EDITOR) P athologist Signature Glucose 316 (H) 70 - 10/18/2018 POINT OF CARE mg/dL 9:58 PM COMMISSIONING EDITOR TEST, GLUCOSE Specimen Anatomical Collection Method Collection Time Receive d Time (Source) Location / / Volume Laterality 10/18/2018 9:46 PM 9 9:58 COMMISSIONING EDITOR PM COMMISSIONING EDITOR Kulwant DE OLIVEIRA - LILI POCT Performing Organization Address [facility] Phon e Number [facility] POINT OF CARE TEST, GLUCOSE POINT OF CARE TEST, GLUCOSE (ABNORMAL) Glucose by meter (10/18/2018 5:40 PM COMMISSIONING EDITOR) P athologist Signature Glucose 252 (H) 70 10/18/2018 POINT OF CARE mg/dL 5:52 PM COMMISSIONING EDITOR TEST, GLUCOSE Specimen Anatomical Collection Method Collection Time Receive d Time (Source) Location / / Volume Laterality 10/18/2018 5:40 PM 9 5:52 COMMISSIONING EDITOR PM COMMISSIONING EDITOR Kulwant DE OLIVEIRA - LILI POCT Performing Organization Address City/[facility] Phon e Number [facility] POINT OF CARE TEST, GLUCOSE POINT OF CARE TEST, GLUCOSE (ABNORMAL) Glucose by meter (10/17/2018 9:39 PM COMMISSIONING EDITOR) P athologist Signature Glucose 118 (H) 70 99 10/17/2018 POINT OF CARE mg/dL 9:51 PM COMMISSIONING EDITOR TEST, GLUCOSE Specimen Anatomical Collection Method Collection Time Receive d Time (Source) Location / / Volume Laterality 10/17/2018 9:39 PM 9 9:51 COMMISSIONING EDITOR PM COMMISSIONING EDITOR Kulwant DE OLIVEIRA - BEAKER POCT Performing Organization Address City/State/ZIP [facility] Phon e Number [facility] POINT OF CARE TEST, GLUCOSE POINT OF CARE TEST, GLUCOSE (ABNORMAL) Basic metabolic panel (10/17/2018 4:28 PM COMMISSIONING EDITOR) P athologist Signature Sodium 143 133 - 144 10/17/2018 [place] mmol/L 5:31 PM [facility] Potassium 3.5 3.4 - 5.3 10/17/2018 [place] mmol/L 5:31 PM [facility] Chloride 109 94 - 109 10/17/2018 [place] mmol/L 5:31 PM [facility] Carbon Dioxide 27 20 - 32 10/17/2018 [place] mmol/L 5:37 PM [facility] Anion Gap 7 3 - 14 10/17/2018 [place] mmol/L 5:37 PM [facility] Glucose 135 (H) 70 - 99 10/17/2018 [place] mg/dL 5:37 PM [facility] Urea Nitrogen 11 7 - 30 10/17/2018 [place] mg/dL 5:37 PM [facility] Creatinine 0.66 0.52 - 10/17/2018 [place] 1.04 mg/dL 5:37 PM [facility] GFR Estimate >90 >60 10/17/2018 [place] mL/min/{1. 5:37 PM [facility] 73_m2} HOSPITAL Comment: Non GFR Calc Starting 09/04/2018, serum creatinine ba sed estimated GFR (eGFR) will be calculated using the Chronic Kidney Dise [facility] Epidemiology Collaboration (CKD-EPI) equation. GFR Estimate If >90 >60 mL/min/{1.73_m2} 10/17/2018 5: 37 PM [facility] Comment: GFR Calc Starting 09/04/2018, serum creatinine ba sed estimated GFR (eGFR) will be calculated using the Chronic Kidney Dise [facility] Epidemiology Collaboration (CKD-EPI) equation. Calcium 8.2 (L) 8.5 - 10.1 mg/dL 10/17/2018 5:37 PM [facility] Specimen Anatomical Collection Method Collection Time Receive d Time (Source) Location / / Volume Laterality Blood specimen 10/17/2018 4:28 PM 019 5:19 (specimen) COMMISSIONING EDITOR PM COMMISSIONING EDITOR Odin Cobian MD LAB - BLOOD ORDERABLES Performing Organization Address City/State/ZIP Code Phon e Number [facility] [address] [place], [place] [address] [facility] [address], [place] [address] [phone] (ABNORMAL) CBC with platelets differential (10/17/2018 4:28 PM COMMISSIONING EDITOR) [facility] Method Time Signature WBC 6.6 4.0 - 10/17/2018 [facility] 11.0 5:23 PM [facility] 10e9/L [facility] RBC Count 4.23 3.8 - 5.2 10/17/2018 [facility] 10e12/L 5:23 PM [facility] Hemoglobin 13.1 11.7 - 10/17/2018 [facility] 15.7 g/dL 5:23 PM [facility] Hematocrit 40.1 35.0 - 10/17/2018 [facility] 47.0 % 5:23 PM [facility] MCV 95 78 - 100 10/17/2018 [facility] fl 5:23 PM [facility] MCH 31.0 26.5 - 10/17/2018 [facility] 33.0 pg 5:23 PM [facility] MCHC 32.7 31.5 - 10/17/2018 [facility] 36.5 g/dL 5:23 PM [facility] RDW 13.4 10.0 - 10/17/2018 [facility] 15.0 % 5:23 PM [facility] Platelet Count 190 150 - 450 10/17/2018 [facility] 10e9/L 5:23 PM [facility] Diff Method Automated 10/17/2018 [facility] Method 5:23 PM [facility] % Neutrophils 56.0 % 10/17/2018 [facility] 5:23 PM [facility] % Lymphocytes 19.8 % 10/17/2018 [facility] 5:23 PM [facility] % Monocytes 11.8 % 10/17/2018 [facility] 5:23 PM [facility] % Eosinophils 11.6 % 10/17/2018 [facility] 5:23 PM [facility] % Basophils 0.5 % 10/17/2018 [facility] 5:23 PM [facility] % Immature 0.3 % 10/17/2018 [facility] Granulocytes 5:23 PM [facility] Nucleated RBCs 0 0 /100 10/17/2018 [facility] 5:23 PM [facility] Absolute 3.7 1.6 - 8.3 10/17/2018 [facility] Neutrophil 10e9/L 5:23 PM [facility] Absolute 1.3 0.8 - 5.3 10/17/2018 [facility] Lymphocytes 10e9/L 5:23 PM [facility] Absolute 0.8 0.0 - 1.3 10/17/2018 [facility] Monocytes 10e9/L 5:23 PM [facility] Absolute 0.8 (H) 0.0 - 0.7 10/17/2018 [facility] Eosinophils 10e9/L 5:23 PM [facility] Absolute 0.0 0.0 - 0.2 10/17/2018 [facility] Basophils 10e9/L 5:23 PM [facility] Abs Immature 0.0 0 - 0.4 10/17/2018 [facility] Granulocytes 10e9/L 5:23 PM [facility] Absolute 0.0 10/17/2018 [facility] Nucleated RBC 5:23 PM [facility] Specimen Anatomical Collection Method Collection Time Receive d Time (Source) Location / / Volume Laterality Blood specimen 10/17/2018 4:28 PM 019 5:19 (specimen) COMMISSIONING EDITOR PM COMMISSIONING EDITOR Odin Cobian MD LAB - BLOOD ORDERABLES Performing Organization Address City/State/ZIP Code Phon e Number [place] [address] [place] [address] [phone] Chest XR, 1 view PORTABLE (10/17/2018 4:26 PM COMMISSIONING EDITOR) Anatomical Region Laterality Modality Chest Digital Radiography Specimen (Source) Anatomical Location Collection Method / Collectio n Time Received Time / Laterality Volume Impressions 10/17/2018 4:32 PM COMMISSIONING EDITOR IMPRESSION: The heart size is normal. There is mild diffuse interstitial prominence. No focal consol idation. No evidence of pneumothorax. TIESHA MAC MD Narrative 10/17/2018 4:32 PM COMMISSIONING EDITOR XR CHEST PORT 1 VW 10/17/2018 4:26 PM HISTORY: Dyspnea COMPARISON: 12/30/2017 Procedure Note Tiesha Mac MD - 10/17/2018F ormatting of this note might be different from the original. XR CHEST PORT 1 VW 10/17/2018 4:26 PM HISTORY: Dyspnea COMPARISON: 12/30/2017 IMPRESSION: The heart size is normal. Th ere is mild diffuse interstitial prominence. No focal consol idation. No evidence of pneumothorax. TIESHA MAC MD Odin Cobian MD IMG DIAGNOSTIC IMAGING ORDER RENA (ABNORMAL) ISTAT gases lactate autumn POCT (10/17/2018 4:12 PM COMMISSIONING EDITOR) P athologist Signature Ph Venous 7.38 7.32 - 10/17/2018 POINT OF CARE 7.43 pH 4:16 PM COMMISSIONING EDITOR TEST, HANDHELD METER PCO2 Venous 47 40 - 50 mm 10/17/2018 POINT OF CARE Hg 4:16 PM COMMISSIONING EDITOR TEST, HANDHELD METER PO2 Venous 55 (H) 25 - 47 mm 10/17/2018 POINT OF CARE Hg 4:16 PM COMMISSIONING EDITOR TEST, HANDHELD METER Bicarbonate 27 21 - 28 10/17/2018 POINT OF CARE Venous mmol/L 4:16 PM COMMISSIONING EDITOR TEST, HANDHELD METER O2 Sat Venous 87 % 10/17/2018 POINT OF CARE 4:16 PM COMMISSIONING EDITOR TEST, HANDHELD METER Lactic Acid 0.8 0.7 - 2.1 10/17/2018 POINT OF CARE mmol/L 4:16 PM COMMISSIONING EDITOR TEST, HANDHELD METER Specimen Anatomical Collection Method Collection Time Receive d Time (Source) Location / / Volume Laterality 10/17/2018 4:12 PM 9 4:16 COMMISSIONING EDITOR PM COMMISSIONING EDITOR Odin Cobian MD LAB - BEAKER POCT Performing Organization Address City/State/ZIP Code Phon e Number [facility] POINT OF CARE TEST, HANDHELD METER POINT OF CARE TEST, HANDHELD METER documented in this encounter Visit Diagnoses Diagnosis Mild intermittent asthma with acute exac erbation - Primary Unspecified asthma, with exacerbation Severe persistent reactive airway diseas e with status asthmaticus Hypoxia Hypoxemia Asthma Unspecified asthma documented in this encounter Administered Medications Inactive Administered Medications - up to 3 most recent administrations Medication Order MAR Action Action Date Dose Rate Site acetaminophen (TYLENOL) tablet 650 Given 10/17/2018 9:13 PM COMMISSIONING EDITOR 650 mg mg 650 mg, Oral, EVERY 4 HOURS PRN, mild pain, Starting on 1/30/19 at 2016, Alternate ibuprofen (if ordered) with acetaminophen. Maximum acetaminophen dose from all sources = 75 mg/kg/day not to exceed 4 grams/day. albuterol (PROVENTIL) continous New Bag 10/17/2018 4:53 PM COMMISSIONING EDITOR 10 mg 9 mL/hr nebulization 10 mg 10 mg, Nebulization, CONTINUOUS, Starting on Mon10/17/18 at 1646 albuterol (PROVENTIL) neb solution 2.5 m g Given 10/17/2018 8:53 PM COMMISSIONING EDITOR 2.5 mg 2.5 mg (3 mL), Nebulization, EVERY 4 HOURS, First dose on Mon10/17/18 at 2030 albuterol (PROVENTIL) neb solution 2.5 m g Given 10/19/2018 11:12 AM COMMISSIONING EDITOR 2.5 mg 2.5 mg (3 mL), Nebulization, 4 TIMES DAILY, First dose (after last modification) on Mamie 10/18/18 at 0800 Given 10/19/2018 7:45 AM COMMISSIONING EDITOR 2.5 mg Given 10/18/2018 7:35 PM COMMISSIONING EDITOR 2.5 mg albuterol (PROVENTIL) neb solution 2.5 m g 2.5 mg (3 mL), Nebulization, EVERY 4 VICENTA RS PRN, shortness of breath, Starting on Mon10/17/18 at 2103 ARIPiprazole (ABILIFY) tablet 10 mg Given 10/18/2018 9:38 PM COMMISSIONING EDITOR 10 mg 10 mg, Oral, EVERY EVENING, First dose on Mon10/17/18 at 2030 Given 10/17/2018 9:13 PM COMMISSIONING EDITOR 10 mg buPROPion (WELLBUTRIN XL) 24 hr tablet 3 00 mg Given 10/18/2018 9:38 PM COMMISSIONING EDITOR 300 mg 300 mg, Oral, EVERY EVENING, First dose on Mon10/17/18 at 2030, DO NOT CRUSH. Given 10/17/2018 9:13 PM COMMISSIONING EDITOR 300 mg clonazePAM (klonoPIN) tablet 1 mg Given 10/18/2018 9:38 PM COMMISSIONING EDITOR 1 mg 1 mg, Oral, AT BEDTIME, First dose on Mon10/17/18 at 2200 Given 10/17/2018 9:13 PM COMMISSIONING EDITOR 1 mg dextrose 50 % injection 25-50 mL 25-50 mL, Intravenous, EVERY 15 MIN PRN, low blood sug ar, Administer over 1-5 Minutes, Starting on Mon10/19/18 at 0001, Use if have I V access, BG less than 70 mg/dL and meet dose criteria below: Dose if conscious and alert (or disorientated) and NPO = 25 mL Dose if unconscious / no t alert = 50 mL Vesicant. For ordered doses up to 25 g, give IV Push undiluted. Give each 5g over 1 minute. fluticasone (ARNUITY ELLIPTA) 100 MCG/ACT Given 10/19/2018 7:48 AM COMMISSIONING EDITOR 1 puff inhaler 1 puff 1 puff, Inhalation, DAILY, First dose (after last modification) on Mamie 10/18/18 at 0800, Rinse mouth after use., , Formulary alternate for Flovent HFA 110mcg Given 10/18/2018 7:50 AM COMMISSIONING EDITOR 1 puff glucagon injection 1 mg 1 mg, Subcutaneous, EVERY 15 MIN PRN, low blood sugar, May repeat x 1 only, Starting on Mon10/19/18 at 0001, May give SQ or IM. ONLY use glucagon IF patient has NO IV access AND is UNABLE to swallow AN D blood glucose is LESS than or EQUAL to 50 mg/dL. If ordered IV, give IV Push over 1 minute. Ricardo nstitute with 1mL sterile water. glucose gel 15-30 g 15-30 g, Oral, EVERY 15 MIN PRN, low blo od sugar, Starting on Mon10/19/18 at 0001, Give 15 g for BG 51 to 69 mg/dL IF patie nt is conscious and able to swallow. Give 30 g for BG less than or equal to 50 mg/dL IF patient is conscious and able to swallow. Do NOT give glucose gel via enteral tube. IF patient has enteral tube: give apple juice 120 mL (4 oz or 15 g of CHO) via ente ral tube for BG 51 to 69 mg/dL. Give apple juice 240 mL (8 oz or 30 g of CHO) via enteral tube for BG less than or equal to 50 mg/dL. ~Oral gel is preferable for conscious and able to swallow patient. ~IF gel unavailable or patient refuses may provide apple juice 120 mL (4 oz or 15 g of CHO). Document juice on I and O fl owsheet. insulin aspart (NovoLOG) inj (RAPID ACTI NG) Given 10/19/2018 9:00 AM COMMISSIONING EDITOR 3 Units 1-7 Units, Subcutaneous, 3 TIMES DAILY BEFORE MEALS, First dose on Mon10/19/18 at 0730, Correction Scale - MEDIUM INSULIN RESISTANCE DOSING Do Not give Correction Insulin if Pre-Meal BG less than 140. For Pre-Meal BG 140 - 189 give 1 unit. For Pre-Meal BG 190 - 239 give 2 units. For Pre-Meal BG 240 - 289 give 3 units. For Pre-Meal BG 290 - 339 give 4 units. For Pre-Meal BG 340- 399 give 5 units. For Pre-Meal BG 400-449 give 6 units For Pre-Meal BG greater than or equal to 450 give 7 units. To be given with prandial insulin, and based on pre-meal blood glucose. Notify provider if glucose greater than or equal to 350 mg/dL after administration of correction dose. If given at mealtime, administer within 30 minutes of start of meal insulin aspart (NovoLOG) inj (RAPID ACTI NG) Given 10/19/2018 12:37 AM COMMISSIONING EDITOR 3 Units 1-5 Units, Subcutaneous, AT BEDTIME, First dose on Mon10/19/18 at 0015, MEDIUM INSULIN RESISTANCE DOSING Do Not give Bedtime Correction Insulin if BG less than 200. For BG 200 - 249 give 1 units. For BG 250 - 299 give 2 units. For BG 300 - 349 give 3 units. For BG 350 -399 give 4 units. For BG greater than or equal to 400 give 5 units. Notify provider if glucose greater than or equal to 350 mg/dL after administration of correction dose. If given at mealtime, administer within 30 minutes of start of meal insulin aspart (NovoLOG) inj (RAPID ACTI NG) Given 10/19/2018 12:36 AM COMMISSIONING EDITOR 7 Units 7 Units, Subcutaneous, ONCE, On Mon10/19/18 at 0015, For 1 dose, Recheck BS in 2 hours and please page me with results-thanks If given at mealtime, administer within 30 minutes of start of meal insulin aspart (NovoLOG) inj (RAPID ACTI NG) Given 10/19/2018 3:10 AM COMMISSIONING EDITOR 8 Units 8 Units, Subcutaneous, ONCE, On Mon10/19/18 at 0300, For 1 dose, Recheck at 6 am, thanks If given at mealtime, administer within 30 minutes of start of meal magnesium sulfate 2 g in NS intermittent New Bag 10/17/2018 4:25 P M COMMISSIONING EDITOR 2 g infusion (PharMEDium or [facility] Cmpd) 2 g, Intravenous, Administer over 15 Minutes, ONCE, On Mon10/17/18 at 1614, For 1 dose methylphenidate (RITALIN) tablet 20 mg Given 10/19/2018 12:53 PM COMMISSIONING EDITOR 20 mg 20 mg, Oral, 3 TIMES DAILY, First dose on Mon10/17/18 at 2200 Given 10/19/2018 8:12 AM COMMISSIONING EDITOR 20 mg Given 10/18/2018 5:03 PM COMMISSIONING EDITOR 20 mg methylPREDNISolone sodium succinate Given 10/19/2018 8:12 AM COMMISSIONING EDITOR 62.5 mg (solu-MEDROL) injection 62.5 mg 62.5 mg (rounded from 60 mg), Intravenous, EVERY 6 HOURS, First dose on Mon10/17/18 at 2030, First dose now if not given in ED, or 6 hours after ED dose. Give IV Doses 125mg and less IV Push over 2-3 minutes - reconstitute with 2 mL of bacteriostatic water if no diluent is provided. Doses greater than 125 mg need to be in at least 50 mL IVPB. Given 10/19/2018 2:46 AM COMMISSIONING EDITOR 62.5 mg Given 10/18/2018 9:38 PM COMMISSIONING EDITOR 62.5 mg mirtazapine (REMERON) tablet 15 mg Given 10/18/2018 9:38 PM COMMISSIONING EDITOR 15 mg 15 mg, Oral, AT BEDTIME, First dose on Mon10/17/18 at 2200 Given 10/17/2018 9:13 PM COMMISSIONING EDITOR 15 mg multivitamin w/minerals (THERA-VIT-M) Given 10/18/2018 9:[address] 1 tablet tablet 1 tablet 1 tablet, Oral, EVERY EVENING, First dose on Mon10/17/18 at 2030 Given 10/17/2018 9:13 PM COMMISSIONING EDITOR 1 tablet ondansetron (ZOFRAN) injection 4 mg 4 mg, Intravenous, EVERY 6 HOURS PRN, nausea, vomiting , Administer over 2-5 Minutes, Starting on Mon10/17/18 at 2016, This is Step 1 of nausea and vomiting management. If nausea not resolved in 15 minutes, go t o Step 2 prochlorperazine (COMPAZINE). Irritant. For ordered IV do ses 0.1-4 mg, give IV Push undiluted over 2-5 minutes. ondansetron (ZOFRAN-ODT) ODT tab 4 mg 4 mg, Oral, EVERY 6 HOURS PRN, nausea, v omiting, Starting on Mon10/17/18 at 2016, This is Step 1 of nausea and vomiting management. If n ausea not resolved in 15 minutes, go to Step 2 prochlorperazine (COMPAZINE). Do not push through foil backing. Peel back foil and gently remove. Place on to ngue immediately. Administration with liquid unnecessary W ith dry hands, peel back foil backing and gently remove tablet; do not push oral d isintegrating tablet through foil backing; administer immediately on tongue and oral disintegrati ng tablet dissolves in seconds; then swallow with saliva; liquid not required . zolpidem (AMBIEN) tablet 5 mg Given 10/18/2018 9:38 PM COMMISSIONING EDITOR 5 mg 5 mg, Oral, AT BEDTIME, First dose on Mon10/17/18 at 2200 Given 10/17/2018 9:13 PM COMMISSIONING EDITOR 5 mg documented in this encounter Active and Recently Administered Medications Times are shown in COMMISSIONING EDITOR. Scheduled Medication Order 10/17/2018 10/18/2018 10/19/2018 albuterol (PROVENTIL) neb solution 2.5 mg (CANCELED) 2 053 (Given - Provider: Monserrat Payne, RT) 2.5 mg (3 mL), Nebulization, EVERY 4 HOURS, First dose on Mon at 2030 albuterol (PROVENTIL) neb solution 2.5 mg 0750 (Given - Provider: Claudine Moffett, RT)1123 (Given - Provider: Claudine Moffett, RT)1512 (Given - Provider: Claudine Moffett, RT)1935 (Given - Provider: Monserrat Payne, RT) 0745 (Given - Provider: Ema Tello, RT)1112 (Given - Provider: Ema Tello, RT) 2.5 mg (3 mL), Nebulization, 4 TIMES DAILY, First dose on Mamie at 0800 ARIPiprazole (ABILIFY) tablet 10 mg 2112 (Given - Provider: Arianna Alan Che, RN) 2137 (Given - Provider: Sylwia Blankenship RN) 10 mg, Oral, EVERY EVENING, First dose on Mon10/17/18 at 2030 buPROPion (WELLBUTRIN XL) 24 hr tablet 300 mg 2112 (Gi autumn - Provider: Arianna Alan Che, RN) 2137 (Given - Provider: Sylwia Blankenship, NATHAN) 300 mg, Oral, EVERY EVENING, First dose on Mon10/17/18 at 2030, DO NOT CRUSH. clonazePAM (klonoPIN) tablet 1 mg 2112 (Given - Provider: Nelly Alan Che, RN) 2137 (Given - Provider: Sylwia Blankenship, NATHAN) 1 mg, Oral, AT BEDTIME, First dose on Mon10/17/18 at 2200 fluticasone (ARNUITY ELLIPTA) 100 MCG/ACT inhaler 1 puff 0750 (Given - Provider: Claudine Moffett, RT) 0748 (Given - Provider: Ema keen, RT) 1 puff, Inhalation, DAILY, First dose on Mon10/18/18 at 0800, Rinse mouth after use., , Formulary alternate for Flovent HFA 110mcg insulin aspart (NovoLOG) inj (RAPID ACTING) 0900 (Given - Provider: Yuridia Watts RN - Comment: BG)1200 (Canceled Entry - Provider: Orders Generic Provider - Comment: Automatically canceled at discontinue of medication order) 1-7 Units, Subcutaneous, 3 TIMES DAILY B EFORE MEALS, First dose on Mon10/19/18 at 0730, Correction Scale - MEDIUM INSULIN RESISTANCE DOSING Do Not give Correction Insulin if Pre-Meal BG less than 140. Fo r Pre-Meal BG 140 - 189 give 1 unit. For Pre-Meal BG 190 - 239 give 2 units. For Pre-Meal BG 240 - 289 give 3 units. For Pre-Meal BG 290 - 339 give 4 units. For Pre-Meal BG 340- 399 give 5 units. For Pr e-Meal BG 400-449 give 6 units For Pre-M eal BG greater than or equal to 450 give 7 units. To be given with prandial insulin, and based on pre-meal blood glucose. Notify provider if glucose greater than or equal to 350 mg/dL after administrati on of correction dose. If given at mealtime, administer within 30 minutes of start of meal insulin aspart (NovoLOG) inj (RAPID ACTING) 0037 (Given - Provider: Kamala Jones RN - Comment: BG 335) 1-5 Units, Subcutaneous, AT BEDTIME, Fir st dose on Mon10/19/18 at 0015, MEDIUM INSULIN RESISTANCE DOSING Do Not give Bedtime Correction Insulin if BG less than 200. For BG 200 - 249 give 1 units. For BG 250 - 299 give 2 units. For BG 300 - 349 give 3 units. For BG 350 -399 give 4 units. For BG greater than or equal to 400 give 5 units. Notify provider if glucose greater than or equal to 350 mg/dL after administration of correction dose. If g iven at mealtime, administer within 30 minutes of start of meal insulin aspart (NovoLOG) inj (RAPID ACTING) (COMPLETED) 003 (Given - Provider: Kamala Jones, RN - Comment: BG 335) 7 Units, Subcutaneous, ONCE, Mon10/19/18 at 0015, For 1 dose, Recheck BS in 2 hours and please page me with results-thanks If given at mealtime, administer within 30 minutes of start of meal insulin aspart (NovoLOG) inj (RAPID ACTING) (COMPLETED) 031 (Given - Provider: Kamala Jones, NATHAN) 8 Units, Subcutaneous, ONCE, On Mon at 0300, For 1 dose, Recheck at 6 am, thanks If given at mealtime, administer within 30 minutes of start of meal magnesium sulfate 2 g in NS intermittent infusion (PharMEDium or [facility] Cmpd) (COMPLETED) 1625 (New Bag - Provider: Alicia santiago RN)1653 (Stopped - Provider: Alicia Guidry, NATHAN) 2 g, Intravenous, Administer over 15 Min utes, ONCE, Mon10/17/18 at 1614, For 1 dose methylphenidate (RITALIN) tablet 20 mg 2113 (Given - P rovider: Arianna Alan Che, RN) 0934 (Given - Provider: Cookie Dickinson, NATHAN)1337 (Given - Provider: Cookie Dickinson, NATHAN)1703 (Given - Provider: Sylwia Blankenship, NATHAN) 0812 (Given - Provider: Yuridia Watts, NATHAN)1253 (Given - Provider: Yuridia Watts, RN) 20 mg, Oral, 3 TIMES DAILY, First dose on Mon10/17/18 at 2200 methylPREDNISolone sodium succinate (solu-MEDROL) inje ction 62.5 mg 2114 (Given - Provider: Arianna Alan Che, RN) 0225 (Given - Provider: Montse Leblanc)0933 (Given - Provider: Cookie Dickinson, RN)1337 (Given - Provider: Cookie Dickinson, NATHAN)2137 (Given - Provider: Sylwia Blankenship, NATHAN) 0246 (Given - Provider: Kamala Jones RN)0812 (Given - Provider: Yuridia Watts, NATHAN)1430 (Canceled Entry - Provider: Orders Generic Provider - Comment: Automatically canceled at discontinue of medication order) 62.5 mg (rounded from 60 mg), Intravenou s, EVERY 6 HOURS, First dose on Mon10/17/18 at 2030, First dose now if not given in ED, or 6 hours after ED dose. Give IV Doses 125mg and less IV Push over 2-3 mi nutes - reconstitute with 2 mL of bacter iostatic water if no diluent is provided. Doses greater than 125 mg need to be in at least 50 mL IVPB. mirtazapine (REMERON) tablet 15 mg 2112 (Given - Provider: Shellie Alan Che, RN) 2137 (Given - Provider: Sylwia Blankenship RN) 15 mg, Oral, AT BEDTIME, First dose on Mon10/17/18 at 2200 multivitamin w/minerals (THERA-VIT-M) tablet 1 tablet 2112 (Given - Provider: Arianna Alan Che, RN) 2137 (Given - Provider: Sylwia Blankenship RN) 1 tablet, Oral, EVERY EVENING, First dose on Mon10/17/18 at 2030 zolpidem (AMBIEN) tablet 5 mg 2112 (Given - Provider: James Alan Che, RN) 2137 (Given - Provider: Sylwia Blankenship RN) 5 mg, Oral, AT BEDTIME, First dose on Mon10/17/18 at 2200 Continuous Medication Order 10/17/2018 10/18/2018 10/19/2018 albuterol (PROVENTIL) continous nebulization 10 mg (CA NCELED) 1652 (New Bag - Provider: Jamee Kirby)175 (Stopped - Provider: Jamee Kirby) 10 mg, Nebulization, CONTINUOUS, Starting Mon10/17/18 at 1646 PRN Medication Order 10/17/2018 10/18/2018 10/19/2018 acetaminophen (TYLENOL) tablet 650 mg 2112 (Given - Pr ovider: Arianna Alan Che, RN) 650 mg, Oral, EVERY 4 HOURS PRN, mild pa in, Starting Mon10/17/18 at 2015, Alternate ibuprofen (if ordered) with acetaminophen. Maximum acetaminophen dose from all sources = 75 mg/kg/day not to exceed 4 grams/day. albuterol (PROVENTIL) neb solution 2.5 mg 2.5 mg (3 mL), Nebulization, EVERY 4 VICENTA RS PRN, shortness of breath / dyspnea, Starting Mon10/17/18 at 2102 ALPRAZolam (XANAX) tablet 0.5 mg 0.5 mg, Oral, DAILY PRN, anxiety, Starti ng Mon10/17/18 at 2015, Avoid taking with grapefruit juice dextrose 50 % injection 25-50 mL(Linked Group 1) 25-50 mL, Intravenous, EVERY 15 MIN PRN, low blood sugar, Administer over 1-5 Minutes, Starting Mon10/19/18 at 0001, Use if have IV access, BG less than 70 mg/dL and meet dose criteria below: Dose if con scious and alert (or disorientated) and NPO = 25 mL Dose if unconscious / not alert = 50 mL Vesicant. For ordered doses up to 25 g, give IV Push undiluted. Give each 5g over 1 minute. glucagon injection 1 mg(Linked Group 1) 1 mg, Subcutaneous, EVERY 15 MIN PRN, lo w blood sugar, May repeat x 1 only, Starting Mon10/19/18 at 0001, May give SQ or IM. ONLY use glucagon IF patient has NO IV access AND is UNABLE to swallow AND blo od glucose is LESS than or EQUAL to 50 m g/dL. If ordered IV, give IV Push over 1 minute. Reconstitute with 1mL sterile water. glucose gel 15-30 g(Linked Group 1) 15-30 g, Oral, EVERY 15 MIN PRN, low blo od sugar, Starting Mon10/19/18 at 0001, Give 15 g for BG 51 to 69 mg/dL IF patient is conscious and able to swallow. Give 30 g for BG less than or equal to 50 mg/d L IF patient is conscious and able to sw allow. Do NOT give glucose gel via enteral tube. IF patient has enteral tube: give apple juice 120 mL (4 oz or 15 g of CHO) via enteral tube for BG 51 to 69 mg/dL . Give apple juice 240 mL (8 oz or 30 g of CHO) via enteral tube for BG less than or equal to 50 mg/dL. ~Oral gel is preferable for conscious and able to swallow patient. ~IF gel unavailable or patient refuses may provide apple juice 120 mL ( 4 oz or 15 g of CHO). Document juice on I and O flowsheet. melatonin tablet 1 mg 1 mg, Oral, AT BEDTIME PRN, sleep, Start ing Mon10/17/18 at 2015, Do not give unless at least 6 hours of uninterrupted sleep is expected. naloxone (NARCAN) injection 0.1-0.4 mg 0.1-0.4 mg, Intravenous, EVERY 2 MIN PRN , opioid reversal, Starting Mon10/17/18 at 2015, For respiratory rate LESS than or EQUAL to 8. Partial reversal dose: 0.1 mg titrated q 2 minutes for Analgesia Si de Effects Monitoring Sedation Level of 3 (frequently drowsy, arousable, drifts to sleep during conversation).Full reversal dose: 0.4 mg bolus for Analgesia Side Effects Monitoring Sedation Level of 4 ( somnolent, minimal or no response to sti mulation). For ordered IV doses 0.1-2mg give IVP. Give each 0.4mg over 15 seconds in emergency situations. For non- emergent situations further dilute in 9mL of NS to facilitate titration of response. ondansetron (ZOFRAN) injection 4 mg(Linked Group 2) 4 mg, Intravenous, EVERY 6 HOURS PRN, na usea, vomiting, Administer over 2-5 Minutes, Starting Mon10/17/18 at 2015, This is Step 1 of nausea and vomiting management. If nausea not resolved in 15 minutes, go to Step 2 prochlorperazine (COMPAZIN E). Irritant. For ordered IV doses 0.1-4 mg, give IV Push undiluted over 2-5 minutes. ondansetron (ZOFRAN-ODT) ODT tab 4 mg(Linked Group 2) 4 mg, Oral, EVERY 6 HOURS PRN, nausea, v omiting, Starting Mon10/17/18 at 2015, This is Step 1 of nausea and vomiting management. If nausea not resolved in 15 minutes, go to Step 2 prochlorperazine (COMP AZINE). Do not push through foil backing . Peel back foil and gently remove. Place on tongue immediately. Administration with liquid unnecessary With dry hands, peel back foil backing and gently remove t ablet; do not push oral disintegrating t ablet through foil backing; administer immediately on tongue and oral disintegrating tablet dissolves in seconds; then swallow with saliva; liquid not required. potassium chloride (KLOR-CON) Packet 20-40 mEq 20-40 mEq, Oral or Feeding Tube, EVERY 2 HOURS PRN, Starting Mon10/17/18 at 2015, potassium supplementation, Use if unable to tolerate tablets. If Serum K+ 3.0-3.3, dose = 60 mEq po total dose (40 mEq x 1 followed in 2 hours by 20 mEq x1). Rec heck K+ level 4 hours after dose and the next AM. If Serum K+ 2.5-2.9, dose = 80 mEq po total dose (40 mEq Q2H x2). Recheck K+ level 4 hours after dose and the ne xt AM. If Serum K+ less than 2.5, See IV order. Dissolve packet contents in 4-8 ounces of cold water or juice. potassium chloride 10 mEq in 100 mL intermittent infusion wi th 10 mg lidocaine 10 mEq, Intravenous, Administer over 1 H ours, EVERY 1 HOUR PRN, Starting Mon10/17/182015, potassium supplementation, Infuse via PERIPHERAL LINE. Use potassium with lidocaine for pain with peripheral administration. If Serum K+ 3.0-3.3, do se = 10 mEq/hr x4 doses (40 mEq IV total dose). Recheck K+ level 2 hours after dose and the next AM. If Serum K+ less than 3.0, dose = 10 mEq/hr x6 doses (60 mEq IV total dose). Recheck K+ level 2 hours after dose and the next AM. potassium chloride 10 mEq in 100 mL ster ile water intermittent infusion (premix) 10 mEq, Intravenous, Administer over 60 Minutes, EVERY 1 HOUR PRN, Starting Mon10/17/18 at 2015, potassium supplementation, Infuse via PERIPHERAL LINE or CENTRAL LINE. Use for central line replacement i f patient weight less than 65 kg, if pat ient is on TPN with high potassium content or if unit does not stock 20 mEq bags. If Serum K+ 3.0-3.3, dose = 10 mEq/hr x4 doses (40 mEq IV total dose). Recheck K + level 2 hours after dose and the next AM. If Serum K+ less than 3.0, dose = 10 mEq/hr x6 doses (60 mEq IV total dose). Recheck K+ level 2 hours after dose and the next AM. potassium chloride 20 mEq in 50 mL intermittent infusion 20 mEq, Intravenous, EVERY 1 HOUR PRN, S tarting 10/17/18 at 2015, potassium supplementation, Infuse via CENTRAL LINE Only. May need EKG if less than 65 kg or on TPN - Max rate is 0.3 mEq/kg/hr for pa tients not on EKG monitoring. If Serum K + 3.0-3.3, dose = 20 mEq/hr x2 doses (40 mEq IV total dose). Recheck K+ level 2 hours after dose and the next AM. If Serum K+ less than 3.0, dose = 20 mEq/hr x3 d oses (60 mEq IV total dose). Recheck K+ level 2 hours after dose and the next AM. potassium chloride ER (K-DUR/KLOR-CON M) CR tablet 20-40 mEq 20-40 mEq, Oral, EVERY 2 HOURS PRN, Star ting 10/17/18 at 2015, potassium supplementation, Use if able to take PO. If Serum K+ 3.0-3.3, dose = 60 mEq po total dose (40 mEq x1 followed in 2 hours by 20 mEq x1). Recheck K+ level 4 hours after dose and the next AM. If Serum K+ 2.5- 2.9, dose = 80 mEq po total dose (40 mEq Q2H x2). Recheck K+ level 4 hours after dose and the next AM. If Serum K+ less than 2.5, See IV order. DO NOT CRUSH Linked Groups Order Group 1: glucose gel 15-30 gJump to med 15-30 g, Oral, EVERY 15 MIN PRN, low blo od sugar, Starting Mon10/19/18 at 0001
Give 15 g for BG 51 to 69 mg/dL IF patient is conscious and able to swallow. Give 30 g for BG less than or equal to 50 mg/dL IF patient is conscious and ab le to swallow. Do NOT give glucose gel via enteral tube. IF patient has enteral tube: give apple juice 120 mL (4 oz or 15 g of CHO) via enteral tube for BG 51 to 69 mg/dL. Give apple juice 240 mL (8 oz or 30 g of CHO) via enteral tube for BG less than or equal to 50 mg/dL. ~Oral gel is preferable for consc ious and able to swallow patient. ~IF gel unavailable or patient refuses may provide apple juice 120 mL (4 oz or 15 g of CHO). Document juice on I and O flowsheet.
Or dextrose 50 % injection 25-50 mLJump to med 25-50 mL, Intravenous, EVERY 15 MIN PRN, low blood sugar, Administer over 1-5 Minutes, Starting Mon10/19/18 at 0001
Use if have IV access, BG less than 70 mg/dL and meet dose criteria below:&amp ;nbsp;Dose if conscious and alert (or di sorientated) and NPO = 25 mL Dose if unconscious / not alert = 50 mL Vesicant. For ordered doses up to 25 g, give IV Push undiluted. Give each 5g over 1 minute.
Or glucagon injection 1 mgJump to med 1 mg, Subcutaneous, EVERY 15 MIN PRN, lo w blood sugar, May repeat x 1 only, Starting Mon10/19/18 at 0001
May give SQ or IM. ONLY use glucagon IF patient has NO IV access AND is UNABLE to swallow AND blood glucose is LESS than or EQUAL to 50 mg/dL. If ordered IV, give IV Push over 1 minute. Reconstitute with 1mL sterile water.
Group 2: ondansetron (ZOFRAN-ODT) ODT tab 4 mgJump to med 4 mg, Oral, EVERY 6 HOURS PRN, nausea, v omiting, Starting Mon10/17/18 at 2016
This is Step 1 of nausea and vomiting management. If nausea not resolved in 15 minutes, go to St ep 2 prochlorperazine (COMPAZINE). Do no t push through foil backing. Peel back foil and gently remove. Place on tongue immediately. Administration with liquid unnecessary With dry hands, peel b ack foil backing and gently remove table t; do not push oral disintegrating tablet through foil backing; administer immediately on tongue and oral disintegrating tablet dissolves in seconds; then swallow with saliva; liquid not required.
Or ondansetron (ZOFRAN) injection 4 mgJump to med 4 mg, Intravenous, EVERY 6 HOURS PRN, na usea, vomiting, Administer over 2-5 Minutes, Starting 10/17/18 at 2016
This is Step 1 of nausea and vomiting management. If nausea not resolved in 15 minutes, go to Step 2 prochlorperazine (COMPAZINE). Irritant. For ordered IV doses 0.1-4 mg, give IV Push undiluted over 2-5 minutes.
documented in this encounter Care Teams Casing Cooker Relationship Specialty Start Date End Date Clinic, Negin Hough [facility] Negin PCP - General 12/30/17 [address] [place] [address] documented as of this encounter
--- OUTSIDE RECORDS SUMMARY | 2022-08-31 15:01 | XMS_ITS | Encounter Summary ---
:1970 Author Organization [place] Address [address] [place] [address] Care Team Providers Name Role Phone Clinic, [place] [facility] Primary Care Provider [phone] Reason for Visit Reason Comments Back Pain Encounter Details Date Type Department Care Team Description 06/03/2022 Emergency [facility] Surinder Dhillon MD Acute bilateral low [place] [facility] back pain with [address] left-sided sciatica [place], [place] [address] [facility] [id number] [address] [address] [place], [place] [address] (Wo rk) Social History Tobacco Use Types Packs/Day Years Used Date Smoking Tobacco: Never Smokeless Tobacco: Never Sex Assigned at Date Recorded Not on file COVID-19 Exposure Response Date Recorded In the last 10 days, have you been in contact with No / Unsu re 06/03/2022 5:17 PM CDT someone who was confirmed or suspected to have Coronavirus/COVID-19? documented as of this encounter Last Filed Vital Signs Vital Sign Reading Time Taken Comments Blood Pressure 134/80 06/03/2022 5:25 PM CDT Pulse 99 06/03/2022 5:25 PM CDT Temperature 36.3 ??C (97.3 ??F) 06/03/2022 5:25 PM CDT Respiratory Rate 20 06/03/2022 5:25 PM CDT Oxygen Saturation 100% 06/03/2022 5:25 PM CDT Inhaled Oxygen Concentration - - Weight - - Height - - Body Mass Index - - documented in this encounter Discharge Instructions Discharge InstructionsSurinder Dhillon MD - 06/03/2022 7:37 PM CDT Discharge Instructions Back Pain You were seen today for back pain. Back pain can have many causes, but most will get better without surgery or other specific treatment. Sometimes there is a herniated (???slipped?? ) disc. We do not usually do MRI scans to look for these right away, since most herniated discs will get better on theirown with time. Today, we did not find any evidence that your back pain was caused by a serious condition. However, sometimes symptoms develop over time and cannot be found during an emergency visit, soit is very important that you follow up with your primary provider. Generally, every Emergency Department visit should have a follow-up clinic visit with either a primary or a specialty clinic/provider. Please follow-up as instructed by your emergency provider today. Return to the Emergency Department if: You develop a fever with your back pain. You have weakness or change in sensation in one or both legs. You lose control of your bowels or bladder, or cannot empty your bladder (cannot pee). Your pain gets much worse. Follow-up with your provider: Unless your pain has completely gone away, please make an appointment with your provider within one week. Most of the routine care for back pain is available in a clinic and not the Emergency Department. You may need further management of your back pain, such as more pain medication, imaging such as an X-ray or MRI, or physical therapy. What can I do to help myself? Remain Active -- People are often afraid that they will hurt their back further or delay recovery byremaining active, but this is one of the best things you can do for your back. In fact, staying in bed for a long time to rest is not recommended. Studies have shown that people with low back pain recover faster when they remain active. Movement helps to bring blood flow to the muscles and relieve muscle spasms as well as preventing loss of muscle strength. Heat -- Using a heating pad can help with low back pain during the first few weeks. Do not sleep with a heating pad, as you can be burned. Pain medications - You may take a pain medication such as Tylenol?? (acetaminophen), Advil??, Motrin?? (ibuprofen) or Aleve?? (naproxen). If you were given a prescription for medicine here today, be sure to read all of the information (including the package insert) that comes with your prescription. This will include important information about the medicine, its side effects, and any warnings that you need to know about. The pharmacist who fills the prescription can provide more information and answer questions you may have about the medicine. If you have questions or concerns that the pharmacist cannot address, please call or return to the Emergency Department. Remember that you can always come back to the Emergency Department if you are not able to see your regular provider in the amount of time listed above, if you get any new symptoms, or if there is anything that worries you. AttachmentsThe following attachments cannot be sent through Care Everywhere.Back Care Tips (Guamanian)Back Exercises, Lumbar (Guamanian)documented in this encounter Medications at Time of Discharge Medication Sig Dispensed Refills Start Date End Date methylPREDNISolone (MEDROL Follow Package 21 tablet 0 06/03 DOSEPAK) 4 MG tablet Directions therapy pack oxyCODONE (ROXICODONE) 5 Take 1-2 tablets 6 tablet 0 06/03 MG tablet (5-10 mg) by mouth every 6 hours as needed for breakthrough pain or severe pain albuterol (2.5 MG/3ML) Take 1 vial by 0 0.083% neb solution nebulization every 4 hours as needed for wheezing albuterol (PROAIR Inhale 1-2 puffs 0 HFA/PROVENTIL HFA/VENTOLIN into the lungs HFA) 108 (90 Base) MCG/ACT every 4 hours as inhaler needed for shortness of breath / dyspnea or wheezing ALPRAZolam (XANAX) 0.5 MG Take 0.5 mg by 0 tablet mouth nightly as needed for anxiety ARIPiprazole (ABILIFY) 10 Take 10 mg by mouth 0 MG tablet At Bedtime budesonide-formoterol Inhale 2 puffs into 0 (SYMBICORT) 160-4.5 the lungs 2 times MCG/ACT Inhaler daily buPROPion (WELLBUTRIN XL) Take 150 mg by 0 150 MG 24 hr tablet mouth At Bedtime DULoxetine (CYMBALTA) 30 Take 60 mg by mouth 0 MG capsule At Bedtime ibuprofen (ADVIL/MOTRIN) Take 1 tablet (600 30 tablet 1 600 MG tablet mg) by mouth every 6 hours as needed for moderate pain methylphenidate (RITALIN) Take 20 mg by mouth 0 20 MG tablet 3 times daily Multiple Vitamins-Minerals Take 1 tablet by 0 (MULTIVITAMIN ADULT PO) mouth daily oxyCODONE (ROXICODONE) 5 Take 1 tablet (5 12 tablet 0 02/28 MG tablet mg) by mouth every 6 hours as needed for pain zolpidem (AMBIEN) 10 MG Take 10 mg by mouth 0 tablet At Bedtime oxyCODONE-acetaminophen Take 1 tablet by 12 tablet 0 202106/06/2022 (PERCOCET) 5-325 MG tablet mouth every 6 hours as needed for pain documented as of this encounter ED Notes Payton Driver RN - 06/03/2022 5:25 PM CDT Pt arrives with c/o low back pain. Pt reports sudden spasm that started while getting ready for work. Pt denies any numbness or tingling to legs. Triage Assessment Row Name 06/03/22 1725 Triage Assessment (Adult) Airway WDL WDL Respiratory WDL Respiratory WDL WDL Skin Circulation/Temperature WDL Skin Circulation/Temperature WDL WDL Cardiac WDL Cardiac WDL WDL Peripheral/Neurovascular WDL Peripheral Neurovascular WDL WDL Cognitive/Neuro/Behavioral WDL Cognitive/Neuro/Behavioral WDL WDL Surinder Dhillon MD - 06/03/2022 5:16 PM CDT History Chief Complaint: Back Pain HPI Rajesh Caba is a 51 year old female who presents with low back pain after bending forward to return to [facility] earlier this afternoon. She presented to work and ultimately had ongoing pain after taking Tylenol and ibuprofen. She is also been using ice pack but unable to tolerate the low back pain. She does note there is pain to bilateral lower legs although majority of her pain appears to radiate down to the left buttock. She does have a history of degenerative disc disease and has had steroid injections historically but has never had any surgical intervention such as microdiscectomy or fusion. She denies any urinary incontinence or bladder dysfunction. She denies any numbness to the groin. She has been able to walk although quite gingerly. Denies any direct trauma to the low back. Denies chest pain, shortness of breath, and abdominal pain. ROS: Review of Systems Constitutional: Negative for fever. Respiratory: Negative for shortness of breath. Cardiovascular: Negative for chest pain. Gastrointestinal: Negative for abdominal pain. Genitourinary: Negative for dysuria, flank pain and urgency. Musculoskeletal: Positive for back pain. Negative for neck pain and neck stiffness. Skin: Negative for rash. All other systems reviewed and are negative. Allergies: No Known Allergies Medications: methylPREDNISolone (MEDROL DOSEPAK) 4 MG tablet therapy pack oxyCODONE (ROXICODONE) 5 MG tablet oxyCODONE-acetaminophen (PERCOCET) 5-325 MG tablet albuterol (2.5 MG/3ML) 0.083% neb solution albuterol (PROAIR HFA/PROVENTIL HFA/VENTOLIN HFA) 108 (90 Base) MCG/ACT inhaler ALPRAZolam (XANAX) 0.5 MG tablet ARIPiprazole (ABILIFY) 10 MG tablet budesonide-formoterol (SYMBICORT) 160-4.5 MCG/ACT Inhaler buPROPion (WELLBUTRIN XL) 150 MG 24 hr tablet DULoxetine (CYMBALTA) 30 MG capsule ibuprofen (ADVIL/MOTRIN) 600 MG tablet methylphenidate (RITALIN) 20 MG tablet Multiple Vitamins-Minerals (MULTIVITAMIN ADULT PO) oxyCODONE (ROXICODONE) 5 MG tablet zolpidem (AMBIEN) 10 MG tablet Past Medical History: No past medical history on file. Past Surgical History: No past surgical history on file. Family History: family history is not on file. Social History: reports that she has never smoked. She has never used smokeless tobacco. She reports that she does not use drugs. PCP: Negin Ma [facility] Physical Exam Patient Vitals for the past 24 hrs: BP Temp Temp src Pulse Resp SpO2 06/03/22 1725 134/80 97.3 ??F (36.3 ??C) Temporal 99 20 100 % Physical Exam General: The patient appears uncomfortable Head: The scalp, face, and head appear normal Eyes: The pupils are equal, round, and reactive to light There is no nystagmus Extraocular muscles are intact Conjunctivae and sclerae are normal ENT: The nose is normal Pinnae are normal The oropharynx is normal Uvula is in the midline Neck: Normal range of motion There is no midline cervical spine pain/tenderness CV: Regular rate and underlying rhythm Normal S1 and S2 No S3 or S4 No pathological murmur detected Resp: Lungs are clear There is no tachypnea Non-labored breathing No rales No wheezing GI: Abdomen is soft, there is no rigidity No distension No tympani No rebound tenderness Non-surgical without peritoneal features MS: Back: The cervical and thoracic spine is non-tender in the midline The lumbar spine is tender in the midline There is bilateral lumbar paraspinous muscular pain to palpation Legs: There is normal motor strength of bilateral lower extremities There is no sensory abnormality/paresthesia There is no numbness There is radiculopathy to the left lower extremity There is normal capillary refill to the toes Skin: No rash or acute skin lesions noted. No shingles noted. Neuro: Speech is normal and fluent. Antalgic gait. Psych: Awake. Alert. Normal affect. Appropriate interactions. Emergency Department Course ECG: ECG results from 02/17/20 EKG 12-lead, tracing only Value Interpretation ECG Click View Image link to view waveform and result Imaging: Lumbar spine XR, 2-3 views Final Result IMPRESSION: No fracture is identified. Severe degenerative disc disease at L2- L3. Background of mildto moderate degenerative disc disease. Moderate lower lumbar spine facet arthropathy. Report per radiology Laboratory: Labs Ordered and Resulted from Time of ED Arrival to Time of ED Departure - No data to display Procedures Emergency Department Course: Reviewed: I reviewed nursing notes, vitals and past medical history Assessments: 1918 I obtained history and examined the patient as noted above. 2114 I rechecked the patient and explained findings. Consults: None Interventions: Medications Lidocaine (LIDOCARE) 4 % Patch 2 patch (2 patches Transdermal Patch/Med Applied 06/03/221949) lidocaine patch in PLACE (has no administration in time range) oxyCODONE (ROXICODONE) tablet 5 mg (5 mg Oral Given 06/03/221948) cyclobenzaprine (FLEXERIL) tablet 10 mg (10 mg Oral Given 06/03/221949) oxyCODONE (ROXICODONE) tablet 5 mg (5 mg Oral Given 06/03/222044) Disposition: The patient was discharged to home. Impression & Plan [facility] Diagnoses: None Medical Decision Making: Rajesh Caba is a 51 year old female who presents for evaluation of back pain and radicular symptoms. They have a history of back pain in the past. Her pain has improved with interventions in the emergency department. She did not sustain any trauma but did have midline L spine tenderness, thusxray obtained. No acute fractures noted. There was degenerative disc disease noted primarily at L2-L3. Patient does have radiculopathy to the left lower extremity and we discussed the importance of trialing a Medrol Dosepak over the next several days. Advanced imaging with CT/MRI is not indicated at this time, but may be indicated in the future if symptoms fail to resolve. Nor is there any indication for consultation with neurosurgery or orthopedic spinal surgeon. There is no clinical evidence of cauda equina syndrome, discitis, spinal/epidural space hematoma or epidural abscess or other emergentlyworrisome etiology. The neurological exam is normal, with the exception of the dermatomal symptoms noted. The patient was advised that radiculopathy often takes significant time to resolve, and that follow up with primarycare, neurology and/or neurosurgery will be indicated if symptoms do not improve. She will be discharged with pain medications to use as directed. No heavy lifting, bending or twisting. Return if increasing pain, muscular weakness, or bowel or bladder dysfunction. She was discharged both with a Insta med prescription to help with pain medications tonight and thenan additional prescription for Percocet that she can fill tomorrow to get her through the weekend until follow-up with spine Ortho can be established early next week. Diagnosis: ICD-10-CM 1. Acute bilateral low back pain with left-sided sciatica M54.42 Discharge Medications: New Prescriptions METHYLPREDNISOLONE (MEDROL DOSEPAK) 4 MG TABLET THERAPY PACK Follow Package Directions OXYCODONE (ROXICODONE) 5 MG TABLET Take 1-2 tablets (5-10 mg) by mouth every 6 hours as needed for breakthrough pain or severe pain OXYCODONE-ACETAMINOPHEN (PERCOCET) 5-325 MG TABLET Take 1 tablet by mouth every 6 hours as needed for pain 06/03/2022 Surinder Dhillon MD White, Scott, MD 06/03/222122 documented in this encounter Plan of Treatment Not on filedocumented as of this encounter Procedures Procedure Name Priority Date/Time Associated Diagnosis Comme nts XR LUMBAR SPINE 2/3 STAT 06/03/2022 8:43 PM Re sults for this VIEWS CDT procedure are i n the results section. documented in this encounter Results Lumbar spine XR, 2-3 views (06/03/2022 8:43 PM CDT) Anatomical Region Laterality Modality Spine, T-spine, L-spine, Abdomen/Pelvis Digital Radiography Specimen (Source) Anatomical Collection Method Collection Time Re ceived Time Location / / Volume Laterality 06/03/2022 8:43 PM CDT Impressions 06/03/2022 8:53 PM CDT IMPRESSION: No fracture is identified. S evere degenerative disc disease at L2-L3. Background of mild to moderate degenerat nicanor disc disease. Moderate lower lumbar spine facet arthropathy. Narrative 06/03/2022 8:53 PM CDT EXAM: XR LUMBAR SPINE 2/3 VIEWS LOCATION: [facility] DATE/TIME: 06/03/2022 8:43 PM INDICATION: Midline L-spine tenderness w ith back pain COMPARISON: None. TECHNIQUE: CR Lumbar Spine. Procedure Note Jay Qureshi MD - 06/03/2022F ormatting of this note might be different from the original. EXAM: XR LUMBAR SPINE 2/3 VIEWS LOCATION: [facility] DATE/TIME: 06/03/2022 8:43 PM INDICATION: Midline L-spine tenderness w ith back pain COMPARISON: None. TECHNIQUE: CR Lumbar Spine. IMPRESSION: No fracture is identified. S evere degenerative disc disease at L2- L3. Background of mild to moderate degenerative disc disease. Moderate lower lumbar spine facet arthropathy. Surinder Dhillon MD IMG DIAGNOSTIC IMAGING ORDER RENA documented in this encounter Visit Diagnoses Diagnosis Acute bilateral low back pain with left- sided sciatica documented in this encounter Administered Medications Inactive Administered Medications - up to 3 most recent administrations Medication Order MAR Action Action Date Dose Rate Site cyclobenzaprine (FLEXERIL) tablet Given 06/03/2022 7:50 PM CDT 1 0 mg 10 mg 10 mg, Oral, ONCE, On Mon06/03/22 at 1935, For 1 dose Lidocaine (LIDOCARE) Patch/Med Applied 06/03/2022 7:50 PM 2 patches Other (see 4 % Patch 2 patch CDT comments) 2 patch, Transdermal, ONCE, Administer over 12 Hours, On Mon06/03/22 at 1935, For 1 dose, Apply patch(s) to lower back. To prevent lidocaine toxicity, patient should be patch free for 12 hrs daily. Patches may be cut to smaller size prior to removing release liner. Reminder: Remove previous patch before applying new patch. NEVER APPLY HEAT OVER PATCH which increases absorption and may lead to local anesthetic toxicity. Do not apply over area where liposomal bupivacaine was injected for 96 hours post injection. lidocaine patch in PLACE First dose on Mon06/03/22 at 2200, Chart every shift, confirming that patch is still in place on patient (no barcode scan needed). Se e patch order for dose information. NEVER APPLY HEAT OVER PATCH which will in crease absorption and may lead to risk of local anesthetic toxicit y. Do not apply over area where liposomal bupivacaine injected for 96 hours. oxyCODONE (ROXICODONE) tablet 5 mg Given 06/03/2022 7:49 PM CDT 5 mg 5 mg, Oral, ONCE, On Mon06/03/22 at 1935, For 1 dose oxyCODONE (ROXICODONE) tablet 5 mg Given 06/03/2022 8:45 PM CDT 5 mg 5 mg, Oral, ONCE, On Mon06/03/22 at 2030, For 1 dose documented in this encounter Active and Recently Administered Medications Times are shown in CDT. Scheduled Medication Order 06/01/2022 06/02/2022 06/03/2022 cyclobenzaprine (FLEXERIL) tablet 10 mg (COMPLETED) 1950 (Given - Provider: Sameera Newman RN) 10 mg, Oral, ONCE, On Mon06/03/22 at 1935, For 1 dose Lidocaine (LIDOCARE) 4 % Patch 2 patch 1949 (Patch/Med Applied - Provider: Sameera Newman RN - Comment: Lower back)2129 (Due: Patch/Med Removed - Provider: Orders Generic Provider - Comment: Time automatically adjusted from order being discontinued) 2 patch, Transdermal, ONCE, Administer o bhupinder 12 Hours, On Mon06/03/22 at 1935, For 1 dose, Apply patch(s) to lower back. To prevent lidocaine toxicity, patient should be patch free for 12 hrs daily. [facility] hes may be cut to smaller size prior to removing release liner. Reminder: Remove previous patch before applying new patch. NEVER APPLY HEAT OVER PATCH which increases absorption and may lead to local an esthetic toxicity. Do not apply over are a where liposomal bupivacaine was injected for 96 hours post injection. lidocaine patch in PLACE 2199 (C anceled Entry - Provider: Orders Generic Provider - Comment: Automatically canceled at discontinue of medication order) First dose on Mon06/03/22 at 2200, Chart every shift, confirming that patch is still in place on patient (no barcode scan needed). See patch order for dose information. NEVER APPLY HEAT OVER PATCH which will increase absorption and may lead t o risk of local anesthetic toxicity. Do not apply over area where liposomal bupivacaine injected for 96 hours. oxyCODONE (ROXICODONE) tablet 5 mg (COMPLETED) 1948 (Given - Provider: Sameera Newman RN) 5 mg, Oral, ONCE, On Mon06/03/22 at 1935, For 1 dose oxyCODONE (ROXICODONE) tablet 5 mg (COMPLETED) 2044 (Given - Provider: Lis Sam RN) 5 mg, Oral, ONCE, On Mon06/03/22 at 2030, For 1 dose documented in this encounter Care Teams Lead Producer Relationship Specialty Start Date End Date Clinic, Negin [facility] PCP - General 12/30/17 [address] [place] [address] documented as of this encounter
--- OUTSIDE RECORDS SUMMARY | 2022-08-31 15:01 | XMS_ITS | Encounter Summary ---
:1970 Author Organization [facility] Address [address] [place] [address] Care Team Providers Name Role Phone [facility], [facility] Primary Care Provider [phone] Encounter Details Date Type Department Care Team Description 02/29/2020 Travel Social History Tobacco Use Types Packs/Day Years Used Date Smoking Tobacco: Never Smokeless Tobacco: Never Sex Assigned at Date Recorded Not on file COVID-19 Exposure Response Date Recorded In the last month, have you been in contact with No / Unsure 02/29/2020 10:23 AM CDT someone who was confirmed or suspected to have Coronavirus / COVID-19? documented as of this encounter Plan of Treatment Not on filedocumented as of this encounter Visit Diagnoses Not on filedocumented in this encounter Care Teams Excavating Supervisor Relationship Specialty Start Date End Date Clinic, [facility] PCP - General 12/30/17 [address] [facility] [place] [address] documented as of this encounter
--- OUTSIDE RECORDS SUMMARY | 2022-08-31 15:01 | XMS_ITS | Encounter Summary ---
:1970 Author Organization [facility] Address [address] [place] [address] Care Team Providers Name Role Phone Unavailable Primary Care Provider Unavailable Encounter Details Date Type Department Care Team Description 08/18/2007 PN Conversion Only [address] [address] [place] [address] Social History Tobacco Use Types Packs/Day Years [...] 09/01/2022 Telemedicine [place] [address] [place], [place] [address] (Wo rk) documented as of this encounter Visit Diagnoses Not on filedocumented in this encounter
--- OUTSIDE RECORDS SUMMARY | 2022-08-31 15:01 | XMS_ITS | Encounter Summary ---
:1970 Author Organization [facility] Address [address] [place] [address] Care Team Providers Name Role Phone [facility], [facility] Primary Care Provider [phone] Encounter Details Date Type Department Care Team Description 10/17/2018 Travel Social History Tobacco Use Types Packs/Day Years Used Date Smoking Tobacco: Never Smokeless Tobacco: Never Sex Assigned at Date Recorded Not on file documented as of this encounter Plan of Treatment Not on filedocumented as of this encounter Visit Diagnoses Not on filedocumented in this encounter Care Teams Environmental Issues Instructor Relationship Specialty Start Date End Date [facility], [facility] PCP - General 12/30/17 [address] [facility] [place] [address] documented as of this encounter
--- OUTSIDE RECORDS SUMMARY | 2022-08-31 15:01 | XMS_ITS | Encounter Summary ---
:1970 Author Organization [place] Address [address] [place] [address] Care Team Providers Name Role Phone Clinic, [facility] Primary Care Provider [phone] [phone] Reason for Visit Reason Comments Chest Pain Encounter Details Date Type Department Care Team Description 02/29/2020 Emergency [facility] Rubén Stafford chest pain [facility] Emergency Dep promise Patel MD [address] [facility] [place], [place] [address] [address] [facility] [phone] [place], [place] [address] (Wo rk) Social History Tobacco Use Types Packs/Day Years Used Date Smoking Tobacco: Never Smokeless Tobacco: Never Sex Assigned at Date Recorded Not on file COVID-19 Exposure Response Date Recorded In the last month, have you been in contact with No / Unsure 02/29/2020 10:23 AM CDT someone who was confirmed or suspected to have Coronavirus / COVID-19? documented as of this encounter Last Filed Vital Signs Vital Sign Reading Time Taken Comments Blood Pressure 105/61 02/29/2020 12:20 PM CDT Pulse 77 02/29/2020 12:20 PM CDT Temperature - - Respiratory Rate 16 02/29/2020 10:26 AM CDT Oxygen Saturation 93% 02/29/2020 12:30 PM CDT Inhaled Oxygen Concentration - - Weight - - Height - - Body Mass Index - - documented in this encounter Discharge Instructions Discharge InstructionsGoRubén rivas MD - 02/29/2020 12:10 PM CDT We have discussed reimaging your chest with CT scan. The urgent care sent you over due to an elevated d-dimer but you had a CT scan just a week ago that was negative for blood clots and the pain is been the same and ongoing since then. We suspect the pain is related to pleural irritation. There is a small pleural effusion if this gets a lot larger it will need to be drained. Return to the emergency room with increased shortness of breath please follow-up with your regular doctor for repeat x-ray we are going to retreat you with a second round of antibiotics and some medication for pain. These do not use Xanax with pain medication. AttachmentsThe following attachments cannot be sent through Care Everywhere. Pleurisy (H[place] Konger)documented in this encounter Medications at Time of Discharge Medication Sig Dispensed Refills Start Date End Date albuterol (2.5 MG/3ML) Take 1 vial by 0 0.083% neb solution nebulization every 4 hours as needed for wheezing albuterol (PROAIR Inhale 1-2 puffs 0 HFA/PROVENTIL into the lungs every HFA/VENTOLIN HFA) 108 4 hours as needed (90 Base) MCG/ACT for shortness of inhaler breath / dyspnea or wheezing ALPRAZolam (XANAX) 0.5 Take 0.5 mg by mouth 0 MG tablet nightly as needed for anxiety ARIPiprazole (ABILIFY) Take 10 mg by mouth 0 10 MG tablet At Bedtime budesonide-formoterol Inhale 2 puffs into 0 (SYMBICORT) 160-4.5 the lungs 2 times MCG/ACT Inhaler daily buPROPion (WELLBUTRIN Take 150 mg by mouth 0 XL) 150 MG 24 hr tablet At Bedtime DULoxetine (CYMBALTA) 30 Take 60 mg by mouth 0 MG capsule At Bedtime ibuprofen (ADVIL/MOTRIN) Take 1 tablet (600 30 tablet 1 600 MG tablet mg) by mouth every 6 hours as needed for moderate pain methylphenidate Take 20 mg by mouth 0 (RITALIN) 20 MG tablet 3 times daily Multiple Take 1 tablet by 0 Vitamins-Minerals mouth daily (MULTIVITAMIN ADULT PO) oxyCODONE (ROXICODONE) 5 Take 1 tablet (5 mg) 12 tablet 0 0 02/29/2020 MG tablet by mouth every 6 hours as needed for pain zolpidem (AMBIEN) 10 MG Take 10 mg by mouth 0 tablet At Bedtime doxycycline hyclate Take 1 capsule (100 20 capsule 0 020 03/10/2020 (VIBRAMYCIN) 100 MG mg) by mouth 2 times capsule daily for 10 days documented as of this encounter ED Notes Paula Loyola RN - 02/29/2020 10:24 AM CDT Right sided pleuritic pain. Admitted for same last week, pain now worse. Sent from [facility] d dimer. Rubén Stafford MD - 02/29/2020 10:17 AM CDT History Chief Complaint: Chest Pain The history is provided by the patient and medical records. Rajesh Caba is a 49 year old female who presents with chest pain. The patient notes that since her admission on 02/16 for pneumonia she has had right sided chest pain that is also present on her back since her admission. She reports that she had went to [facility] and had a Chest XR andblood work and recommended to come here. She notes that she feels like her pain is similar to past instances of spontaneous pneumothorax. She denies DVT or leg swelling. CT CHEST PULMONARY EMBOLISM W CONTRAST LOCATION[facility] DATE/TIME: 02/17/2020 6:47 PM IMPRESSION: 1. No evidence for pulmonary embolism. 2. Right lower lobe consolidation suspicious for pneumonia. Follow-up recommended. [facility] 02/29/2020 COMPARISON: None. FINDINGS: Two views were obtained. Right basilar infiltrate or atelectasis. Heart size and pulmonary vascularity are within normal limits. Small right pleural effusion. Bony thorax isunremarkable. Labs: D Dimer: 1.27(H) Allergies: No known drug allergies Medications: Albuterol neb soln Albuterol inhaler Xanax Abidanielafy Symbicort Wellbutrin Ritalin Caseyien Past Medical History: Asthma Pneumonia Hypoxia ADHD Anxiety disorder Major depressive disorder Polysubstance abuse Past Surgical History: Hernia repair Appendectomy Lung surgery Family History: Brain aneurysm, father Cancer, father DM, father Kidney bladder disease, father Stroke, father Ovarian cancer Social History: Smoking status: never smoker Alcohol use: Not on file Drug use: No PCP: [facility] Presents to the ED unaccompanied Marital Status: [2] Review of Systems Cardiovascular: Positive for chest pain. Negative for leg swelling. All other systems reviewed and are negative. Physical Exam Patient Vitals for the past 24 hrs: BP Pulse Heart Rate Resp SpO2 02/29/20 1130 -- -- -- -- 92 % 02/29/20 1120 -- -- -- -- 91 % 02/29/20 1110 -- -- -- -- 93 % 02/29/20 1100 -- -- -- -- 91 % 02/29/20 1050 -- -- -- -- 97 % 02/29/20 1026 128/74 93 93 16 93 % Physical Exam Constitutional: Appearance: She is obese. HENT: Head: Normocephalic. Cardiovascular: Rate and Rhythm: Normal rate and regular rhythm. Heart sounds: Normal heart sounds. Pulmonary: Effort: Pulmonary effort is normal. Breath sounds: Normal breath sounds. Abdominal: General: Bowel sounds are normal. Palpations: Abdomen is soft. Musculoskeletal: Normal range of motion. Skin: General: Skin is warm. Capillary Refill: Capillary refill takes less than 2 seconds. Neurological: General: No focal deficit present. Mental Status: She is alert. Psychiatric: Mood and Affect: Mood normal. Emergency Department Course Laboratory: Laboratory findings were communicated with the patient who voiced understanding of the findings. HCG quantitative POCT: <5.0 Procedures Interventions: 1121 Toradol 15 mg, IV 1127 Roxicodone, 5 mg, PO Emergency Department Course: Nursing notes and vitals reviewed. 1050 I performed an exam of the patient as documented above. 1114 IV was inserted and blood was drawn for laboratory testing, results above. 1150 I discussed further imaging with the patient and the risks and benefits regarding imaging. She understands that she had a recent CT and does not want further imaging. 1204 I personally reviewed the results with the patient and answered all related questions prior to discharge. Impression & Plan Medical Decision Making: Rajesh Caba is a 49 year old female who presents to the emergency department today for evaluation of ongoing right-sided pleuritic chest pain. Patient was seen at urgent care and they ran a d-dimer and sent the patient to the emergency room with concerns of PE. Patient is 49 and is non-tachycardic and not at risk for PE to review of her chart patient had a CT scan on the first of this month which was negative for PE. I did have a long discussion with the patient about further work-up. Her x-ray today by outpatient does show a small pleural effusion suspect parapneumonic effusion. Patient herself was concerned about pneumothorax that she has had this in the past. Feel the risk of her serial CT scans in a low risk setting with a history of having a prior CT scan and ongoing pain that is similar is on beneficial and do not feel a further work-up is required at this time. Patient will be offered ongoing antibiotics recommend follow-up for repeat chest x-ray to ensure effusion resolution return to the emergency room with worsening shortness of breath patient agrees to this plan was discharged in stable condition. Oxygen saturations anywhere between 93 and 95% noted to did drift in the 80swhen she fell asleep but doubt this is related to significant pulmonary disease. Diagnosis: ICD-10-CM 1. Pleuritic chest pain R07.81 Disposition: The patient is discharged to home. Discharge Medications: New Prescriptions DOXYCYCLINE HYCLATE (VIBRAMYCIN) 100 MG CAPSULE Take 1 capsule (100 mg) by mouth 2 times daily for 10 days IBUPROFEN (ADVIL/MOTRIN) 600 MG TABLET Take 1 tablet (600 mg) by mouth every 6 hours as needed for moderate pain OXYCODONE (ROXICODONE) 5 MG TABLET Take 1 tablet (5 mg) by mouth every 6 hours as needed for pain Scribe Disclosure: I, Zoë Regalado, am serving as a scribe at 1050 on 02/29/2020 to document services personally performed by Rubén Stafford MD based on my observations and the provider's statements to me. [facility] EMERGENCY DEPARTMENT Rubén Stafford MD 02/29/20 1555 documented in this encounter Plan of Treatment Not on filedocumented as of this encounter Procedures Procedure Name Priority Date/Time Associated Comments Diagnosis ISTAT HCG Routine 02/29/2020 11:02 Results for this QUANTITATIVE AM CDT procedure are i n POCT the results section. documented in this encounter Results ISTAT HCG Quantitative POCT (02/29/2020 11:02 AM CDT) P athologist Signature HCG Quantitative <5.0 <5.0 IU/L 02/29/2020 POINT OF CAR E Serum 11:14 AM CDT TEST, HANDHELD METER Specimen Anatomical Collection Method Collection Time Receive d Time (Source) Location / / Volume Laterality 02/29/2020 11:02 02/29/2020 AM CDT 11:14 AM CDT Rubén Stafford MD LAB - BEAKER POCT Performing Organization Address City/State/ZIP Code Phon e Number [facility] POINT OF CARE TEST, HANDHELD METER POINT OF CARE TEST, HANDHELD METER documented in this encounter Visit Diagnoses Diagnosis Pleuritic chest pain Painful respiration documented in this encounter Administered Medications Inactive Administered Medications - up to 3 most recent administrations Medication Order MAR Action Action Date Dose Rate Site ketorolac (TORADOL) injection 15 Given 02/29/2020 11:21 AM CDT 1 5 mg mg 15 mg, Intravenous, ONCE, On 02/29/20 at 1056, For 1 dose, Can cause pain on injection. If ordered intravenously (IV) : administer through a running maintenance fluid over 1 minute followed by a flush. If patient complains of pain on injection, may dilute 15-30 mg in 5 mL and push over 1 to 2 minutes. oxyCODONE (ROXICODONE) tablet 5 mg Given 02/29/2020 11:27 AM CDT 5 mg 5 mg, Oral, ONCE, On 02/29/20 at 1056, For 1 dose documented in this encounter Active and Recently Administered Medications Times are shown in CDT. Scheduled Medication Order 02/27/2020 02/28/2020 02/29/2020 ketorolac (TORADOL) injection 15 mg (COMPLETED) 1121 (Given - Provider: Sandra Beyer) 15 mg, Intravenous, ONCE, 02/29/20 at 1056, For 1 dose, Can cause pain on injection. If ordered intravenously (IV) : administer through a running maintenance fluid over 1 minute followed by a flush. If patient complains of pain on injectio n, may dilute 15-30 mg in 5 mL and push over 1 to 2 minutes. oxyCODONE (ROXICODONE) tablet 5 mg (COMPLETED) 1127 (Given - Provider: Darshana Haynes RN) 5 mg, Oral, ONCE, 02/29/20 at 1056, For 1 dose documented in this encounter Care Teams Manager Country Relationship Specialty Start Date End Date Clinic, [facility] PCP - General 12/30/17 [address] [place] [address] documented as of this encounter
--- OUTSIDE RECORDS SUMMARY | 2022-08-31 15:01 | XMS_ITS | Encounter Summary ---
:1970 Author Organization [place] Address [address] [place] [address] Care Team Providers Name Role Phone Clinic, [facility] Primary Care Provider [phone] Encounter Details Date Type Department Care Team Description 06/03/2022 Travel Social History Tobacco Use Types Packs/Day Years Used Date Smoking Tobacco: Never Smokeless Tobacco: Never Sex Assigned at Date Recorded Not on file COVID-19 Exposure Response Date Recorded In the last 10 days, have you been in contact with No / Unsu re 06/03/2022 5:17 PM CDT someone who was confirmed or suspected to have Coronavirus/COVID-19? documented as of this encounter Plan of Treatment Not on filedocumented as of this encounter Visit Diagnoses Not on filedocumented in this encounter Care Teams Kettle Worker Relationship Specialty Start Date End Date Clinic, [facility] PCP - General 12/30/17 [address] [place] [address] documented as of this encounter
--- OUTSIDE RECORDS SUMMARY | 2022-08-31 15:01 | XMS_ITS | Clinical Summary ---
:1970 Author Organization [place] Address [address] [place] [address] Care Team Providers Name Role Phone Clinic, [facility] Primary Care Provider [phone] [phone] Allergies No known active allergies Medications Medication Sig Dispensed Refills Start Date End Date Status albuterol (2.5 MG/3ML) Take 1 vial by 0 Active 0.083% neb solution nebulization every 4 hours as needed for wheezing Multiple Take 1 tablet by 0 Act nicanor Vitamins-Minerals mouth daily (MULTIVITAMIN ADULT PO) ARIPiprazole (ABILIFY) Take 10 mg by 0 Active 10 MG tablet mouth At Bedtime ALPRAZolam (XANAX) 0.5 Take 0.5 mg by 0 Active MG tablet mouth nightly as needed for anxiety methylphenidate Take 20 mg by 0 Active (RITALIN) 20 MG tablet mouth 3 times daily zolpidem (AMBIEN) 10 MG Take 10 mg by 0 Active tablet mouth At Bedtime budesonide-formoterol Inhale 2 puffs 0 Active (SYMBICORT) 160-4.5 into the lungs 2 MCG/ACT Inhaler times daily DULoxetine (CYMBALTA) 30 Take 60 mg by 0 Active MG capsule mouth At Bedtime albuterol (PROAIR Inhale 1-2 puffs 0 Active HFA/PROVENTIL into the lungs HFA/VENTOLIN HFA) 108 every 4 hours as (90 Base) MCG/ACT needed for inhaler shortness of breath / dyspnea or wheezing buPROPion (WELLBUTRIN Take 150 mg by 0 Active XL) 150 MG 24 hr tablet mouth At Bedtime ibuprofen (ADVIL/MOTRIN) Take 1 tablet 30 tablet 1 02/29/2020 Active 600 MG tablet (600 mg) by mouth every 6 hours as needed for moderate pain oxyCODONE (ROXICODONE) 5 Take 1 tablet (5 12 tablet 0 02/29/20 20 Active MG tablet mg) by mouth every 6 hours as needed for pain methylPREDNISolone Follow Package 21 tablet 0 06/03/2022 Active (MEDROL DOSEPAK) 4 MG Directions tablet therapy pack oxyCODONE (ROXICODONE) 5 Take 1-2 tablets 6 tablet 0 06/03/20 22 Active MG tablet (5-10 mg) by mouth every 6 hours as needed for breakthrough pain or severe pain Active Problems Problem Noted Date Pneumonia 02/17/2020 Asthma 10/17/2018 Hypoxia 12/30/2017 Encounters Date Type Specialty Care Team Description 06/03/2022 Emergency EMERGENCY MEDICINE Surinder Dhillon MD Acute bilateral low back pain with left- sided sciatica 06/03/2022 Travel from Last 3 Months Immunizations Name Administration Dates Next Due Influenza Vaccine >6 months (Alfuria,Fluzone) 10/19/2018, Social History Tobacco Use Types Packs/Day Years Used Date Smoking Tobacco: Never Smokeless Tobacco: Never Sex Assigned at Date Recorded Not on file Last Filed Vital Signs Vital Sign Reading Time Taken Comments Blood Pressure 134/80 06/03/2022 5:25 PM CDT Pulse 99 06/03/2022 5:25 PM CDT Temperature 36.3 ??C (97.3 ??F) 06/03/2022 5:25 PM CDT Respiratory Rate 20 06/03/2022 5:25 PM CDT Oxygen Saturation 100% 06/03/2022 5:25 PM CDT Inhaled Oxygen Concentration - - Weight 117.5 kg (259 lb 1.6 oz) 02/19/2020 6:46 AM CDT Height 182.9 cm (6') 02/17/2020 3:06 PM CDT Body Mass Index 35.14 02/17/2020 3:06 PM CDT Plan of Treatment Health Maintenance Due Date Last Done Comments ANNUAL REVIEW OF HM ORDERS 1970 ASTHMA ACTION PLAN 1970 ASTHMA CONTROL TEST [address] COLONOGRAPHY 1970 FIT-DNA (Cologuard) 1970 FIT 1970 FLEX SIG 1970 MAMMO SCREENING 1970 YEARLY PREVENTIVE VISIT 1970 COLONOSCOPY 1980 COLORECTAL CANCER SCREENING 1980 HIV SCREENING 1985 HEPATITIS C SCREENING 1988 PAP 1991 LIPID 2015 PHQ-2 (once per calendar 09/18/2021 year) COVID-19 Vaccine (4 - 09/28/2021 08/03/2021, 12/31/2020, Booster for Moderna series) 12/03/2020 ZOSTER IMMUNIZATION (2 of 12/18/2021 10/23/2021 2) HEPATITIS B IMMUNIZATION (3 02/25/2022 12/23/2021, 11/05/19 22 of 3 - 3-dose series) INFLUENZA VACCINE (#1) 2022 10/23/2021, 07/16/2019, 10/19/2018, Additional history exists ADVANCE CARE PLANNING 10/18/2023 10/18/2018 DTAP/TDAP/TD IMMUNIZATION 01/31/2026 02/01/2016, 12/08/2010 (3 - Td or Tdap) IPV IMMUNIZATION Aged Out No longer eligi ble based on patient 's age to complete this topic MENINGITIS IMMUNIZATION Aged Out No longe r eligible based on patient 's age to complete this topic Pneumococcal Vaccine: Aged Out No longer eligible Pediatrics (0 to 5 Years) based on patient's age and At-Risk Patients (6 to to co mplete this topic 64 Years) Procedures Procedure Name Priority Date/Time Associated Diagnosis Comme nts XR LUMBAR SPINE 2/3 STAT 06/03/2022 8:43 PM Re sults for this VIEWS CDT procedure are i n the results section. from Last 3 Months Results Lumbar spine XR, 2-3 views (06/03/2022 [...] EXAM: XR LUMBAR SPINE 2/3 VIEWS LOCATION: [facility] DATE/TIME: 06/03/2022 8:43 PM INDICATION: Midline L-spine tenderness w ith back pain COMPARISON: None. TECHNIQUE: CR Lumbar Spine. Procedure Note Jay Qureshi MD - 06/03/2022F ormatting of this note might be different from the original. EXAM: XR LUMBAR SPINE 2/3 VIEWS LOCATION: [facility] DATE/TIME: 06/03/2022 8:43 PM INDICATION: Midline L-spine tenderness w ith back pain COMPARISON: None. TECHNIQUE: CR Lumbar Spine. IMPRESSION: No fracture is identified. S evere degenerative disc disease at L2- L3. Background of mild to moderate degenerative disc disease. Moderate lower lumbar spine facet arthropathy. Surinder Dhillon MD IMG DIAGNOSTIC IMAGING ORDER RENA from Last 3 Months Insurance Payer Benefit Plan / Subscriber ID Effective Phone Address T ype Group Dates [place] [id number] 2019-Pre [phone] [place] sent [phone] [place] [address] [facility] [id number] 2022-Pre [phone] [facility] sent [phone] [place] [address] [phone] [employer] [place] [address] (Home) [address] [phone] [place], [place] 4 (Work) [phone] Advance Directives For more information, please contact: [phone] Latest Code Status on File Code Status Date Activated Date Inactivated Comments Full Code 02/19/2020 10:58 AM 02/29/2020 10:17 AM Question Answer Comments Code status determined by: Discussion with patient/legal dec ision maker Code Status History Code Status Date Activated Date Inactivated Comments Full Code 02/17/2020 9:38 PM 02/19/2020 10:58 AM Question Answer Comments Code status determined by: Discussion with patient/legal dec ision maker Full Code 10/19/2018 12:47 PM 07/05/2019 1:55 PM Question Answer Comments Code status determined by: Discussion with patient/legal dec ision maker Full Code 10/17/2018 8:16 PM 10/19/2018 12:47 PM Question Answer Comments Code status determined by: Discussion with patient/legal dec ision maker Full Code 01/01/2018 12:16 PM 10/17/2018 3:54 PM Care Teams Steel Post Installer Supervisor Relationship Specialty Start Date End Date Clinic, [facility] PCP - General 12/30/17 [address] [place] [address]
--- OUTSIDE RECORDS SUMMARY | 2022-08-31 15:01 | XMS_ITS | Encounter Summary ---
:1970 Author Organization [facility] Address [address] [id number] Care Team Providers Name Role Phone [facility], [facility] Primary Care Provider [phone] Reason for Visit Reason Comments Shortness of Breath Auth/Cert Specialty Diagnoses / Procedures Referred By Contact Refer red To Contact Diagnoses Hypoxia Pneumonia of right lower lobe due to infectious organism Pneumonia [facility] [address] [place], [place] [address] Phone: Fax: Referral ID Status Reason Start Date Expiration Date Visits Requ ested Visits Authorized [id number] 1 1 Encounter Details Date Type Department Care Team Description 02/17/2020 - [facility] Micheal Covington MD [facility] [address] [place], [place] [id number] Pneumonia of left lower lobe due to Stre ptococcus pneumoniae (H) (Primary Dx); 02/19/2020 Encounter [facility] Ken Christian, DO [address] [place], [place] [address] Pneumonia of right lower lobe due to inf ectious organism; Surgical Hypoxia; [address] Mild intermit tent asthma [place] [address] Social History Tobacco Use Types Packs/Day Years Used Date Smoking Tobacco: Never Smokeless Tobacco: Never Sex Assigned at Date Recorded Not on file COVID-19 Exposure Response Date Recorded In the last month, have you been in contact with No / Unsure 02/17/2020 3:03 PM CDT someone who was confirmed or suspected to have Coronavirus / COVID-19? documented as of this encounter Last Filed Vital Signs Vital Sign Reading Time Taken Comments Blood Pressure 119/64 02/19/2020 4:11 PM CDT Pulse 103 02/17/2020 9:00 PM CDT Temperature 36.5 ??C (97.7 ??F) 02/19/2020 4:11 PM CDT Respiratory Rate 18 02/19/2020 4:11 PM CDT Oxygen Saturation 90% 02/19/2020 4:11 PM CDT Inhaled Oxygen Concentration - - Weight 117.5 kg (259 lb 1.6 oz) 02/19/2020 6:46 AM CDT Height 182.9 cm (6') 02/17/2020 3:06 PM CDT Body Mass Index 35.14 02/17/2020 3:06 PM CDT documented in this encounter Discharge Summaries Rain Oakley RN - 02/19/2020 4:22 PM CDT AVS reviewed with pt. All questions answered. Pt denies any further questions or concerns. 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 playground monitor removed. All belongings returned including RX's.Pt escorted to front door by [facility] staff, transporting home by . Roz Shetty MD - 02/19/2020 10:59 AM CDT Discharge Summary Hospitalist Service Rajesh Stevens Date of : 1970 Age: [age] year old Date of Admission: 02/17/2020 Date of Discharge: 02/19/2020 Admitting Physician: Ken Christian DO Discharge Physician: Roz Shetty MD Discharging Service: Hospitalist Service Primary Provider: Negin Ma Primary Care Physician Discharge Diagnoses/Problem Oriented Hospital Course (Providers): Discharge Diagnoses Pneumonia presumed gram positive, pneumococcal Acute hypoxic respiratory failure Asthma. Anxiety/depression. Hospital Course Rajesh Stevens is a 49 year old female admitted on 02/17/2020. She??has a past medical history significant for asthma, anxiety, depression, and attention deficit disorder. ??She presented to emergency room with right lateral chest pain. ??Found to have pneumonia. She was initially treated with IV ceftriaxone, and azithromycin. She was also started on nebulizer therapy, with prednisone. Her symptom have significantly Improved. Patient requested to go home today. I discussed with her as long as she maintains oxygen requirements above 90% while walking off oxygen therapy, she may be discharged. Patient has been doing well. And will be discharged home on prednisone and levofloxacin. ?? Code Status: Full Code Important Results: Pending Results: Unresulted Labs Ordered in the Past 30 Days of this Admission Date and Time Order Name Status Description 02/17/20201926 Blood culture Preliminary 02/17/20201926 Blood culture Preliminary Discharge Instructions and Follow-Up: Follow-up Appointments Follow-up and recommended labs and tests Follow up with primary care provider, Negin Mcnulty, within 7 days for hospital follow- up. No follow up labs or test are needed. Discharge Disposition: Discharged to home Discharge Medications: Current Discharge Medication List START taking these medications Details levofloxacin (LEVAQUIN) 750 MG tablet Take 1 tablet (750 mg) by mouth daily for 6 days Qty: 6 tablet, Refills: 0 Associated Diagnoses: Hypoxia; Pneumonia of left lower lobe due to Streptococcus pneumoniae (H) predniSONE (DELTASONE) 20 MG tablet Take 2 tablets (40 mg) by mouth daily for 7 days Qty: 14 tablet, Refills: 0 Associated Diagnoses: Hypoxia; Pneumonia of left lower lobe due to Streptococcus pneumoniae (H); Mild intermittent asthma with acute exacerbation CONTINUE these medications which have NOT CHANGED Details albuterol (PROAIR HFA/PROVENTIL HFA/VENTOLIN HFA) 108 (90 Base) MCG/ACT inhaler Inhale 1-2 puffs into the lungs every 4 hours as needed for shortness of breath / dyspnea or wheezing Comments: Pharmacy may dispense brand covered by insurance (Proair, or proventil or ventolin or generic albuterol inhaler) ALPRAZolam (XANAX) 0.5 MG tablet Take 0.5 mg by mouth nightly as needed for anxiety ARIPiprazole (ABILIFY) 10 MG tablet Take 10 mg by mouth At Bedtime budesonide-formoterol (SYMBICORT) 160-4.5 MCG/ACT Inhaler Inhale 2 puffs into the lungs 2 times daily buPROPion (WELLBUTRIN XL) 150 MG 24 hr tablet Take 150 mg by mouth At Bedtime DULoxetine (CYMBALTA) 30 MG capsule Take 60 mg by mouth At Bedtime methylphenidate (RITALIN) 20 MG tablet Take 20 mg by mouth 3 times daily Multiple Vitamins-Minerals (MULTIVITAMIN ADULT PO) Take 1 tablet by mouth daily zolpidem (AMBIEN) 10 MG tablet Take 10 mg by mouth At Bedtime albuterol (2.5 MG/3ML) 0.083% neb solution Take 1 vial by nebulization every 4 hours as needed for wheezing Allergies: No Known Allergies Consultations This Hospital Stay: No consultations were requested during this admission Condition and Physical Exam on Discharge: Discharge condition: Stable Discharge vitals: Blood pressure (!) 141/71, pulse 103, temperature 98.7 ??F (37.1 ??C), temperaturesource Oral, resp. rate 20, height 1.829 m (6'), weight 117.5 kg (259 lb 1.6 oz), SpO2 92 %. General: Pt in NAD, normal appearance HEENT: OP clear MMM, no JVD Lungs: Clear to Auscultation Bilateral, normal breathing without accessory muscle usage, no wheezing, rhonchi or crackles Cardiac: +S1, S2, RRR, no MRG, no edema Abdominal: normal bowel sounds, NT/ND, no hepatosplenomegaly Skin: warm, dry, normal turgor, no rash Psyche: A& O x3, appropriate affect Discharge Orders for Skilled Facility (from Discharge Orders): After Care Instructions Activity Your activity upon discharge: activity as tolerated Diet Follow this diet upon discharge: Orders Placed This Encounter Combination Diet Regular Diet Adult Rehab orders for Skilled Facility (from Discharge Orders): Discharge Time: Greater than 30 minutes. Image Results From This Hospital Stay (For Non-EPIC Providers): Results for orders placed or performed during the hospital encounter of 02/17/20 XR Chest Port 1 View Narrative EXAM: XR CHEST PORT 1 VW LOCATION: [facility] DATE/TIME: 02/17/2020 4:57 PM INDICATION: Chest pain COMPARISON: None. Impression IMPRESSION: Negative chest. CT Chest Pulmonary Embolism w Contrast Narrative EXAM: CT CHEST PULMONARY EMBOLISM W CONTRAST LOCATION: [facility] DATE/TIME: 02/17/2020 6:47 PM INDICATION: Shortness of breath COMPARISON: None. TECHNIQUE: CT angiogram chest during arterial phase injection IV contrast. 2D and 3D MIP reconstructions were performed by the medical technologist chief. Dose reduction techniques were used. CONTRAST: 74mL Isovue-370 FINDINGS: ANGIOGRAM CHEST: No evidence for pulmonary embolism. Pulmonary arteries normal in caliber. Thoracic aorta normal in caliber. No aortic dissection or other acute abnormality. HEART: Cardiac chambers within normal limits. No pericardial effusion. LUNGS AND PLEURA: Right lower lobe posterior basal consolidation and trace adjacent pleural effusion. Left lung clear. No suspicious pulmonary nodule. No pleural effusion or pneumothorax. MEDIASTINUM: Small hiatal hernia. No adenopathy or mass per LIMITED UPPER ABDOMEN: Negative. MUSCULOSKELETAL: Negative. Impression IMPRESSION: 1. No evidence for pulmonary embolism. 2. Right lower lobe consolidation suspicious for pneumonia. Follow-up recommended. XR Chest Port 1 View Narrative EXAM: CHEST SINGLE VIEW PORTABLE LOCATION: [facility] DATE/TIME: 02/18/2020 1:51 AM INDICATION: Shortness of breath. COMPARISON: 02/17/2020 - CT chest. FINDINGS: A small patchy opacity is present in the lateral aspect of the right lung base, also described on the recent comparison CT scan. The lungs are otherwise clear. Normal-sized cardiac silhouette. Impression IMPRESSION: 1. A small patchy opacity in the right lung base is nonspecific, but could represent pneumonia or scarring. 2. No other findings suspicious for active cardiopulmonary disease. Echocardiogram Complete Narrative [id number]^ANWER^ANI^SAMINA [facility] [address] [place] [id number] Name: RAJESH STEVENS : 1970 Study Date: 02/18/2020 11:34 AM Age: 49 yrs Gender: Female Patient Location: [facility] Reason For Study: SOB Ordering Physician: ROZ SHETTY Performed By: Keshawn Elam RDCS BSA: 2.4 m2 Height: 72 in Weight: 264 lb HR: 99 BP: 117/61 mmHg __ Procedure Complete Portable Echo Adult. Optison ([facility] #[id number]) given intravenously. __ Interpretation Summary Left ventricular size, global systolic function, and wall motion are normal, estimated LVEF 60-65%. Right ventricular global function is normal. No significant valvular abnormalities. There are no prior studies available for comparison. __ Left Ventricle The left ventricle is normal in size. There is concentric remodeling present. Left ventricular systolic function is normal. The visual ejection fraction is estimated at 60-65%. Left ventricular diastolic function is normal. No regional wall motion abnormalities noted. Right Ventricle The right ventricle is normal in structure, function and size. Atria Normal left atrial size. Right atrial size is normal. There is no color Doppler evidence of an atrial shunt. Mitral Valve The mitral valve is normal in structure and function. There is no mitral valve stenosis. Tricuspid Valve The tricuspid valve is not well visualized, but is grossly normal. Aortic Valve The aortic valve is normal in structure and function. Pulmonic Valve The pulmonic valve is not well seen, but is grossly normal. Vessels The aortic root is normal size. Normal size ascending aorta. Dilation of the inferior vena cava is present with normal respiratory variation in diameter. IVC diameter and respiratory changes fall into an intermediate range suggesting an RA pressure of 8 mmHg. Pericardium There is no pericardial effusion. __ MMode/2D Measurements & Calculations IVSd: 1.1 cm LVIDd: 4.8 cm LVIDs: 2.7 cm LVPWd: 1.1 cm FS: 44.0 % LV mass(C)d: 189.1 grams LV mass(C)dI: 78.9 grams/m2 Ao root diam: 3.7 cm LA dimension: 4.2 cm asc Aorta Diam: 3.2 cm LA/Ao: 1.1 LVOT diam: 2.2 cm LVOT area: 3.8 cm2 LA Volume (BP): 79.0 ml LA Volume Index (BP): 32.9 ml/m2 RWT: 0.46 Doppler Measurements & Calculations MV E max rafy: 71.8 cm/sec MV A max rafy: 113.0 cm/sec MV E/A: 0.64 MV max P.3 mmHg MV mean P.0 mmHg MV V2 VTI: 23.3 cm MVA(VTI): 4.3 cm2 MV dec time: 0.16 sec LV V1 max P.8 mmHg LV V1 max: 130.0 cm/sec LV V1 VTI: 26.1 cm CO(LVOT): 10.2 l/min CI(LVOT): 4.3 l/min/m2 SV(LVOT): 99.2 ml SI(LVOT): 41.4 ml/m2 PA acc time: 0.11 sec TR max rafy: 235.0 cm/sec TR max P.1 mmHg E/E' av.6 Lateral E/e': 7.9 Medial E/e': 9.2 __ Report approved by: Yvrose Maier 02/18/2020 01:30 PM Most Recent Lab Results In [facility] (For Non-[facility] Providers): Most Recent 3 CBC's: Recent Labs Lab Test 02/19/20 0734 02/17/20 1623 10/17/18 1628 WBC 9.9 10.1 6.6 HGB 12.0 12.4 13.1 MCV 94 95 95 PLT 274 246 190 Most Recent 3 BMP's: Recent Labs Lab Test 02/19/20 0734 02/18/20 0845 02/17/20 1623 NA 142 138 140 POTASSIUM 3.1* 3.7 3.8 CHLORIDE 111* 105 106 CO2 25 26 27 BUN 17 15 12 CR 0.87 0.75 0.69 ANIONGAP 6 7 7 TAMY 8.7 8.8 8.6 GLC 154* 148* 119* Most Recent 3 Troponin's:No lab results found. Most Recent 3 INR's:No lab results found. Most Recent 2 LFT's: Recent Labs Lab Test 02/17/20 1623 12/30/17 1145 AST 20 22 ALT 27 41 ALKPHOS 87 66 BILITOTAL 0.9 0.5 Most Recent Cholesterol Panel:No lab results found. Most Recent 6 Bacteria Isolates From Any Culture (See EPIC Reports for Culture Details): Recent Labs Lab Test 02/17/20 2018 CULT No growth after 2 days No growth after 2 days Most Recent TSH, T4 and HgbA1c: Recent Labs Lab Test 10/19/18 0709 A1C 5.9* documented in this encounter Medications at Time of Discharge Medication Sig Dispensed Refills Start Date End Date albuterol (2.5 MG/3ML) Take 1 vial by 0 0.083% neb solution nebulization every 4 hours as needed for wheezing albuterol (PROAIR Inhale 1-2 puffs into 0 HFA/PROVENTIL the lungs every 4 HFA/VENTOLIN HFA) 108 hours as needed for (90 Base) MCG/ACT shortness of breath / inhaler dyspnea or wheezing ALPRAZolam (XANAX) 0.5 Take [...] by mouth 0 MG capsule At Bedtime methylphenidate Take 20 mg by mouth 3 0 (RITALIN) 20 MG tablet times daily Multiple Take 1 tablet by 0 Vitamins-Minerals mouth daily (MULTIVITAMIN ADULT PO) zolpidem (AMBIEN) 10 MG Take 10 mg by mouth 0 tablet At Bedtime levofloxacin (LEVAQUIN) Take 1 tablet (750 6 tablet 0 11/201902/25/2020 750 MG mg) by mouth daily tabletIndications: for 6 days Hypoxia, Pneumonia of left lower lobe due to Streptococcus pneumoniae (H) predniSONE (DELTASONE) Take 2 tablets (40 14 tablet 0 02/1902/27/2020 20 MG tabletIndications: mg) by mouth daily Hypoxia, Pneumonia of for 7 days left lower lobe due to Streptococcus pneumoniae (H), Mild intermittent asthma with acute exacerbation documented as of this encounter Progress Notes Merary Pierre RN - 02/19/2020 3:07 PM CDT Patient alert and oriented. Up independently, walked in [place] 02 remained 92% RA while walking. Pain managed with scheduled lidocaine patches and iv toradol x1. Lung sounds diminished. Bowel sounds active and audible. Tele: SR/ST. Plan is to discharge this evening. Discharge meds given to patient. Patient has no further questions at this time regarding discharge meds. Roz Shetty MD - 02/18/2020 1:44 PM CDT [facility] Hospitalist Progress Note Date of Admission: 02/17/2020 Day of hospitalization: 1 Assessment and Plan: Rajesh Stevens is a 49 year old female admitted on 02/17/2020. She has a past medical history significant for asthma, anxiety, depression, and attention deficit disorder. She presented to emergency room with right lateral chest pain. Found to have pneumonia. ?? 1. Pneumonia presumed gram positive, community acquired. Continue antibiotics with azithromycin and IV ceftriaxone. Pain medications as needed. SARS-CoV-2 PCR negative ?? 2. Acute hypoxic respiratory failure - most likely secondary to above, CT chest negative for Pulmonary Embolism, echocardiogram ordered to evaluate for PHTN 2. Asthma. Mild exacerbation.Continue Symbicort. Antibiotics as noted above. Nebulizer therapy started, and PO prednisone ?? 3. Anxiety/depression. Restart Abilify, bupropion, Cymbalta. ?? Diet: Combination Diet Regular Diet Adult DVT Prophylaxis: Pneumatic Compression Devices Ocampo Catheter: not present Code Status: Full Code Roz Shetty MD Text Page (7am - 6pm, M-F) Subjective Chief Complaint: cough Subjective: +pleuritic chest pain, no fever, +cough, +SOB. Otherwise, no other complaints, no nausea, vomiting, fevers, chills, abdominal pain or diarrhea . Objective BP 117/61 Pulse 103 Temp 98.4 ??F (36.9 ??C) (Oral) Resp 22 Ht 1.829 m (6') Wt 119.6 kg (263 lb 10.7 oz) SpO2 94% BMI 35.76 kg/m?? Physical Exam General: Pt in NAD, normal appearance HEENT: OP clear MMM, no JVD Lungs: Bibasilar crackles normal breathing without accessory muscle usage, no wheezing, rhonchi or crackles Cardiac: +S1, S2, RRR, no MRG, no edema Abdominal: normal bowel sounds, NT/ND, no hepatosplenomegaly Skin: warm, dry, normal turgor, no rash Psyche: A& O x3, appropriate affect Intake/Output Summary (Last 24 hours) at 02/18/2020 1344 Last data filed at 02/18/2020 0945 Gross per 24 hour Intake 120 ml Output -- Net 120 ml Labs and Imaging Results: Recent Labs Lab 02/17/20 1623 WBC 10.1 HGB 12.4 PLT 246 Recent Labs Lab 02/18/20 0845 02/17/20 1623 NA 138 140 CO2 26 27 BUN 15 12 No results for input(s): INR, PTT in the last 168 hours. No results for input(s): CKMB in the last 168 hours. Invalid input(s): TROPONINT Recent Labs Lab 02/17/20 1623 ALBUMIN 3.4 AST 20 ALT 27 ALKPHOS 87 Micro: Radio: Echocardiogram Complete Final Result XR Chest Port 1 View Final Result IMPRESSION: 1. A small patchy opacity in the right lung base is nonspecific, but could represent pneumonia or scarring. 2. No other findings suspicious for active cardiopulmonary disease. CT Chest Pulmonary Embolism w Contrast Final Result IMPRESSION: 1. No evidence for pulmonary embolism. 2. Right lower lobe consolidation suspicious for pneumonia. Follow-up recommended. XR Chest Port 1 View Final Result IMPRESSION: Negative chest. Medications: Scheduled Meds: ??? ARIPiprazole 10 mg Oral At Bedtime ??? azithromycin 250 mg Oral Daily ??? budesonide-formoterol 2 puff Inhalation BID ??? buPROPion 150 mg Oral At Bedtime ??? cefTRIAXone 2 g Intravenous Q24H ??? diclofenac 4 g Transdermal 4x Daily ??? DULoxetine 60 mg Oral At Bedtime ??? lidocaine 2 patch Transdermal Q24H ??? lidocaine Transdermal Q8H ??? menthol Transdermal Q8H ??? methylphenidate 20 mg Oral TID ??? predniSONE 40 mg Oral Daily ??? sodium chloride (PF) 3 mL Intracatheter Q8H Continuous Infusions: PRN Meds: acetaminophen, acetaminophen, ALPRAZolam, bisacodyl, guaiFENesin, HYDROmorphone, hydrOXYzine, ibuprofen, ketorolac, lidocaine 4%, lidocaine (buffered or not buffered), melatonin, menthol AND menthol, naloxone, nitroGLYcerin, ondansetron OR ondansetron, oxyCODONE, polyethylene glycol, senna-docusate OR senna-docusate, sodium chloride (PF) Deondre Ackerman DO - 02/18/2020 3:01 AM CDT XC Called for ongoing pain in chest. Discussed with Dr Christian who admitted her. I video called into her room. Her pain is unchanged from admit, rating as 10/10. CT reviewed, only PNA. CXR performed due to h/o PTX but neg. Discussed with pt, will add lidoderm, menthol patch, toradol, and voltaren gel. Will not escalate opiates nor BNZ as she has already received large/frequent doses. She understands and is agreeable. Deondre Ackerman, February 18, 2020 Roxy Jones RN - 02/18/2020 1:36 AM CDT paged: Pain unrelieved by Dilaudid,pain 8-05/28, 02 @ 5L oxymask, c/o can not take a deep breath. documented in this encounter H&P Notes Ken Christian, - 02/17/2020 10:46 PM CDT [facility] History and Physical - Hospitalist Service Date of Admission: 02/17/2020 Assessment & Plan Rajesh Stevens is a 49 year old female admitted on 02/17/2020. She has a past medical history significant for asthma, anxiety, depression, and attention deficit disorder. She presented to emergencyroom with right lateral chest pain. Found to have pneumonia. 1. Pneumonia. Continue antibiotics with azithromycin and IV ceftriaxone. Pain medications as needed.SARS-CoV-2 PCR sent from emergency room and still pending. 2. Asthma. No obvious acute exacerbation. Continue Symbicort. Antibiotics as noted above. 3. Anxiety/depression. Restart Abilify, bupropion, Cymbalta. Diet: Combination Diet Regular Diet Adult DVT Prophylaxis: Pneumatic Compression Devices Ocampo Catheter: not present Code Status: Full Code Rule Out COVID-19 Handoff: Rajesh is a LOW SUSPICION PUI. Follow these instructions: ?? If COVID test positive -> continue isolation precautions ?? If COVID test negative -> discontinue COVID-specific isolation precautions Disposition Plan Expected discharge: 2 - 3 days, recommended to prior living arrangement Ken Christian, DO [facility] Chief Complaint Right lateral chest pain. History is obtained from the patient Due to current pandemic COVID-19 concerns, patient seen remotely by telemedicine. History of Present Illness Rajesh Stevens is a 49 year old female who has a past medical history significant for asthma, anxiety, depression, and attention deficit disorder. She developed sudden onset pain in her right lateral chest very early this morning. Nothing at home was helping with pain control. Pain feels similarto when she had a pneumothorax more than 20 years ago. She does not feel short of breath other than when she is having pain. She has not noticed any cough. No fevers or chills. She is feeling better after medications given in the emergency room. No other acute complaints. Review of Systems The 10 point Review of Systems is negative other than noted in the HPI Past Medical History I have reviewed this patient's medical history and updated it with pertinent information if needed. See above. Past Surgical History I have reviewed this patient's surgical history and updated it with pertinent information if needed. No past surgical history on file. Social History I have reviewed this patient's social history and updated it with pertinent information if needed. Social History Tobacco Use ??? Smoking status: Never Smoker ??? Smokeless tobacco: Never Used Substance Use Topics ??? Alcohol use: Not on file ??? Drug use: No Family History I have reviewed this patient's family history and updated it with pertinent information if needed. Father with colon cancer. Prior to Admission Medications Prior to Admission Medications Prescriptions Last Dose Informant Patient Reported? Taking? ALPRAZolam (XANAX) 0.5 MG tablet 02/16/2020 at Unknown time Yes Yes Sig: Take 0.5 mg by mouth nightly as needed for anxiety ARIPiprazole (ABILIFY) 10 MG tablet 02/16/2020 at Unknown time Yes Yes Sig: Take 10 mg by mouth At Bedtime DULoxetine (CYMBALTA) 30 MG capsule 02/16/2020 at Unknown time Yes Yes Sig: Take 60 mg by mouth At Bedtime Multiple Vitamins-Minerals (MULTIVITAMIN ADULT PO) 02/16/2020 at Unknown time Yes Yes Sig: Take 1 tablet by mouth daily albuterol (2.5 MG/3ML) 0.083% neb solution Yes No Sig: Take 1 vial by nebulization every 4 hours as needed for wheezing albuterol (PROAIR HFA/PROVENTIL HFA/VENTOLIN HFA) 108 (90 Base) MCG/ACT inhaler 02/16/2020 at Unknowntime Yes Yes Sig: Inhale 1-2 puffs into the lungs every 4 hours as needed for shortness of breath / dyspnea or wheezing buPROPion (WELLBUTRIN XL) 150 MG 24 hr tablet 02/16/2020 at Unknown time Yes Yes Sig: Take 150 mg by mouth At Bedtime budesonide-formoterol (SYMBICORT) 160-4.5 MCG/ACT Inhaler 02/17/2020 at x1 Yes Yes Sig: Inhale 2 puffs into the lungs 2 times daily methylphenidate (RITALIN) 20 MG tablet 02/16/2020 at Unknown time Yes Yes Sig: Take 20 mg by mouth 3 times daily zolpidem (AMBIEN) 10 MG tablet 02/16/2020 at Unknown time Yes Yes Sig: Take 10 mg by mouth At Bedtime Facility-Administered Medications: None Allergies No Known Allergies Physical Exam Vital Signs: Temp: 99 ??F (37.2 ??C) Temp src: Oral BP: 112/49 Pulse: 103 Heart Rate: 105 Resp: 18 SpO2: 93 % O2 Device: None (Room air) Oxygen Delivery: 2 LPM Weight: 263 lbs 10.72 oz Patient seen remotely by telemedicine. In general, no acute distress. Awake, alert, and oriented x3. Speaking in full sentences without problems. Appears to have normal respiratory effort without any respiratory difficulty. For the rest of physical exam, I did discuss case with emergency room physician, Dr. Covington, including her physical exam. I did review the physical exam section of her note that was filed at 20:43 on 02/17/2020. Data Data reviewed today: I reviewed all medications, new labs and imaging results over the last 24 hours. I personally reviewed the EKG tracing showing Sinus tachycardia. Recent Labs Lab 02/17/20 1623 WBC 10.1 HGB 12.4 MCV 95 PLT 246 NA 140 POTASSIUM 3.8 CHLORIDE 106 CO2 27 BUN 12 CR 0.69 ANIONGAP 7 TAMY 8.6 GLC 119* ALBUMIN 3.4 PROTTOTAL 7.6 BILITOTAL 0.9 ALKPHOS 87 ALT 27 AST 20 TROPI <0.015 documented in this encounter ED Notes Lionel Osborne RN - 02/17/2020 8:35 PM CDT [facility] ED Nurse Handoff Report Rajesh Stevens is a 49 year old female ED Chief complaint: Shortness of Breath . ED Diagnosis: Final diagnoses: None Allergies: No Known Allergies Code Status: Full Code Activity level - Baseline/Home: Stand by Assist. Activity Level - Current: Stand by Assist. Lift room needed: No. Bariatric: No Tonguer Needed: No Isolation: Yes. Infection: Other: COVID PUI Vital Signs: Vitals: 02/17/20 1800 02/17/20 1945 02/17/20199902/17/202014 BP: 104/62 109/49 100/68 116/66 Pulse: 112 109 107 111 Resp: 24 21 16 16 Temp: TempSrc: SpO2: 93% 95% 95% 92% Weight: Height: Cardiac Rhythm: , Pain level: 0-10 Pain Scale: 10 Patient confused: No. Patient Falls Risk: Yes. Elimination Status: Has voided Patient Report - Initial Complaint: Patient reports sudden onset of shortness of breath at 0330 today when she got up to use the bathroom. She reports it feels like when I have collapsed my lungs in the past. Chest pain on right chest and right back, worse with inspiration. . Focused Assessment: Respiratory - Respiratory WDL: -WDL except; all Rhythm/Pattern, Respiratory: shortness of breath Breath Sounds: All [place] Cough Frequency: infrequent Head To Toe Assessment - All Lung [place] Breath Sounds: clear Tests Performed: CT Chest Pulmonary Embolism w Contrast Final Result IMPRESSION: 1. No evidence for pulmonary embolism. 2. Right lower lobe consolidation suspicious for pneumonia. Follow-up recommended. XR Chest Port 1 View Final Result IMPRESSION: Negative chest. . Abnormal Results: Labs Ordered and Resulted from Time of ED Arrival Up to the Time of Departure from the ED COMPREHENSIVE METABOLIC PANEL - Abnormal; Notable for the following components: Result Value Glucose 119 (*) All other components within normal limits CBC WITH PLATELETS DIFFERENTIAL TROPONIN I COVID-19 VIRUS (CORONAVIRUS) BY PCR PULSE OXIMETRY NURSING CARDIAC CONTINUOUS MONITORING PERIPHERAL IV CATHETER PATIENT CARE ORDER BLOOD CULTURE BLOOD CULTURE . Treatments provided: See MAR Family Comments: Updated by patient. OBS brochure/video discussed/provided to patient: No ED Medications: Medications morphine (PF) injection 4 mg (4 mg Intravenous Given 02/17/20 1650) cefTRIAXone (ROCEPHIN) 2 g vial to attach to NS 100 ml bag for ADULTS or NS 50 ml bag for PEDS (has no administration in time range) azithromycin (ZITHROMAX) 500 mg in sodium chloride 0.9 % 250 mL intermittent infusion (has no administration in time range) fentaNYL (PF) (SUBLIMAZE) injection 75 mcg (has no administration in time range) HYDROmorphone (DILAUDID) injection 1 mg (1 mg Intravenous Given 02/17/20 1717) HYDROmorphone (DILAUDID) injection 1 mg (1 mg Intravenous Given 02/17/20 1805) LORazepam (ATIVAN) injection 0.5 mg (0.5 mg Intravenous Given 02/17/20 1806) iopamidol (ISOVUE-370) solution 500 mL (74 mLs Intravenous Given 02/17/20 1847) CT Scan Flush (90 mLs Intravenous Given 02/17/20 1847) HYDROmorphone (DILAUDID) injection 1 mg (1 mg Intravenous Given 02/17/20 1911) Drips infusing: Yes, antibiotics. For the majority of the shift, the patient's behavior Green. Interventions performed were NA. Sepsis treatment initiated: No ED Nurse Name/Phone Number: Brigitte De Luna RN, 8:35 PM RECEIVING UNIT ED HANDOFF REVIEW Above ED Nurse Handoff Report was reviewed: Yes Reviewed by: Lionel Osborne RN on February 17, 2020 at 8:57 PM Brigitte Thibodeaux RN - 02/17/2020 8:35 PM CDT Pt wanted to leave after finding out about admission, pt mentioned family issues at home and wantingto be present. MD Covington notified. Nathalia Chacko - 02/17/2020 4:13 PM CDT Applied monitoring devices (EKG, BP, and pulse ox) onto Patient. Pt. O2 sats at 89%-90%. 2LPM via NCplaced on Pt. Pt. O2 sats at 95%. RN notified Kortney Thakur RN - 02/17/2020 3:04 PM CDT Patient reports sudden onset of shortness of breath at 0330 today when she got up to use the bathroom. She reports it feels like when I have collapsed my lungs in the past. Chest pain on right chest and right back, worse with inspiration. Micheal Covington MD - 02/17/2020 3:02 PM CDT History Chief Complaint: Shortness of Breath The history is provided by the patient. Rajesh Stevens is a 49 year old female with a history of asthma and prediabetes who presents with midsternal chest pain radiating to the right back side along with shortness of breath that started around 3:30am today. She denies any fever, cough, or other respiratory symptoms. She denies any trauma. She notes this feels like when she had her pneumothorax 20+ years ago where she had to have multiple chest tubes then finally a pleurodesis to fix it. She does use albuterol and a long acting inhaler for her asthma. She hasn't used her albuterol inhaler today yet. Allergies: No Known Allergies Medications: Albuterol 0.083% neb solution Alprazolam Aripiprazole Bupropion Clonazepam Fluticasone inhaler Methylphenidate Mirtazapine Zolpidem Past Medical History: ADHD Anxiety Asthma Depression Hypoxia Insomnia Keratitis Polysubstance dependence Prediabetes Radiculopathy L3 Past Surgical History: Appendectomy Hernia repair Lung surgery Family History: Brain aneurysm Cancer Diabetes Kidney/bladder disease Stroke Social History: Marital Status: [2] Negative for tobacco use. Negative for alcohol use. Negative for drug use. Review of Systems Please see HPI. All other systems reviewed and negative. Physical Exam Patient Vitals for the past 24 hrs: BP Temp Temp src Pulse Heart Rate Resp SpO2 Height Weight 02/17/202014 116/66 -- -- 111 109 16 92 % -- -- 02/17/201999 100/68 -- -- 107 107 16 95 % -- -- 02/17/20 1945 109/49 -- -- 109 109 21 95 % -- -- 02/17/20 1800 104/62 -- -- 112 114 24 93 % -- -- 02/17/20 1745 110/71 -- -- 112 110 21 94 % -- -- 02/17/20 1700 108/64 -- -- 115 116 17 95 % -- -- 02/17/20 1645 115/67 -- -- 114 116 10 96 % -- -- 02/17/20 1630 121/63 -- -- 109 112 12 96 % -- -- 02/17/20 1506 (!) 136/97 98.7 ??F (37.1 ??C) Oral -- 136 20 97 % 1.829 m (6') 119.6 kg (263 lb 10.7 oz) Physical Exam Constitutional: Appearance: She is well-developed. She is diaphoretic. HENT: Right Ear: Tympanic membrane and external ear normal. Left Ear: Tympanic membrane and external ear normal. Mouth/Throat: Mouth: Mucous membranes are moist. Pharynx: Oropharynx is clear. No oropharyngeal exudate or posterior oropharyngeal erythema. Eyes: General: No scleral icterus. Conjunctiva/sclera: Conjunctivae normal. Pupils: Pupils are equal, round, and reactive to light. Neck: Musculoskeletal: Normal range of motion and neck supple. Vascular: No JVD. Cardiovascular: Rate and Rhythm: Regular rhythm. Tachycardia present. Heart sounds: Normal heart sounds. No murmur. No friction rub. No gallop. Pulmonary: Effort: Pulmonary effort is normal. No respiratory distress. Breath sounds: Normal breath sounds. No wheezing or rales. Abdominal: General: Bowel sounds are normal. There is no distension. Palpations: Abdomen is soft. There is no mass. Tenderness: There is no abdominal tenderness. Musculoskeletal: Normal range of motion. Skin: General: Skin is warm. Capillary Refill: Capillary refill takes less than 2 seconds. Findings: No rash. Neurological: Mental Status: She is alert. Emergency Department Course Imaging: Radiology findings were communicated with the patient who voiced understanding of the findings. XR Chest Port 1 view: Negative chest, as per radiology. CT Chest Pulmonary Embolism w/ IV contrast: 1. ??No evidence for pulmonary embolism. 2. ??Right lower lobe consolidation suspicious for pneumonia. Follow-up recommended, as per radiology. Laboratory: Laboratory findings were communicated with the patient who voiced understanding of the findings. CBC: WBC: 10.1, HGB: 12.4, PLT: 246 1623 Troponin: <0.015 CMP: Glucose 119(H), o/w WNL (Creatinine: 0.69) Blood culture: In process Symptomatic COVID-19 Virus by PCR: In process Procedures: None Interventions: 1625 Morphine, 4 mg, IV 1650 Morphine, 4 mg, IV 1717 Dilaudid, 1 mg, IV 1805 Dilaudid, 1 mg, IV 1806 Ativan, 0.5 mg, IV 1911 Dilaudid, 1 mg, IV Emergency Department Course: Past medical records, nursing notes, and vitals reviewed. 1604 I performed an exam of the patient as documented above. EKG obtained in the ED, see results above. IV was inserted and blood was drawn for laboratory testing, results above. The patient was sent for a portable chest x-ray and a chest CT while in the emergency department, results above. [address] Christian of the hospitalist services who is in agreement to accept the patient for admission. Findings and plan explained to the Patient who consents to admission. Discussed the patient with , who will admit the patient to a medical bed for further monitoring, evaluation, and treatment. I personally reviewed the laboratory and imaging results with the Patient and answered all related questions prior to admission. Impression & Plan Covid-19 Rajesh Stevens was evaluated during a global COVID-19 pandemic, which necessitated consideration that the patient might be at risk for infection with the SARS-CoV-2 virus that causes COVID-19. Applicable protocols for evaluation were followed during the patient's care. COVID-19 was considered as part of the patient's evaluation. The plan for testing is: a test was obtained during this visit. Medical Decision Making: Patient presents today with the above symptoms. Her CXR did not show evidence of pneumothorax, but given her hypoxia and chest pain, CT chest was performed. It did show a right lower lobe pneumonia, which is consistent with her presentation of hypoxia, tachycardia, and pain. COVID swab performed in the ER. She did well on 2-3L of oxygen. Antibiotics given as well. She required multiple rounds of painmedications. She agreed to be admitted for further treatment of her infection. Diagnosis: ICD-10-CM 1. Pneumonia of right lower lobe due to infectious organism (H) J18.1 2. Hypoxia R09.02 Disposition: Admitted to a medical bed under the care of Dr. Christian. Scribe Disclosure: Mima Cantrell, am serving as a scribe at 4:04 PM on 02/17/2020 to document services personally performed by Micheal Covington MD based on my observations and the provider's statements to me. [facility] Micheal Covington MD 02/17/202042 documented in this encounter Miscellaneous Notes Plan of Care - Rain Oakley RN - 02/19/2020 4:15 PM CDT A/O x 4. VSS on RA. Denied pain. Tele SR, denied CP . No SOB reported. PIV removed on day shift. Up ad lakisha in room, steady gait and denies dizziness. Adequate for discharge today, being picked up by . Will continue POC. Provider Notification - Merary Pierre RN - 02/19/2020 10:24 AM CDT Provider paged: Patient walk study done, patient 02 92% RA while walking in [place]. Plan of Care - Larisa Frey RN - 02/19/2020 4:34 AM CDT A&O. VSS. Remains on 2L O2. C/o sharp chest pain rated 6-9/10. PRN IV Dilaudid, Toradol, PO Oxy,and xanax given. C/o nausea relieved w/ Zofran. LS diminished. Tele SR/ST. Independent in room. Treating PNA w/ PO Zithromax and IV Rocephin. Continue plan of care. Larisa Frey RN on 02/19/2020 at 4:37 AM Plan of Care - Latha Maldonado RN - 02/18/2020 3:45 PM CDT Pt is a/o, up independent in room. VS, oxygen at 5L nasal cannula- not baseline. Pain in right chestarea gave oxycodone and dilaudid. COVID negative. Appetite is fair. On zithromax and rochepin. Lungscourse. Discharge pending. Transferred to room 353, gave report to nurse. Provider Notification - Latha Maldonado RN - 02/18/2020 10:13 AM CDT Pt is negative for jeanie LORENZ MD Plan of Care - Roxy Jones RN - 02/18/2020 8:56 AM CDT End of Shift Summary For vital signs and complete assessments, please see documentation flowsheets. Pertinent assessments: A&Ox4, C/O SOB, chest pain, oxycodone, IV Dilaudid and Toradol given withrelief, O2 up to 7L oxymask. Sp02 93-95%, denies cough Major Shift Events: Admission Treatment Plan: Rocephin, Zithromax, pain mgmt, Oxygen Discharge Readiness: Medically active Expected Discharge Date: TBD Discharge Disposition: Home with family Barriers/Criteria for discharge: Requiring oxygen, COVID 19 pending. Provider Notification - Ester Mann RN - 02/18/2020 12:51 AM CDT BP 112/49 Pulse 103 Temp 99 ??F (37.2 ??C) (Oral) Resp 18 Ht 1.829 m (6') Wt 119.6 kg (263lb 10.7 oz) SpO2 93% BMI 35.76 kg/m?? 12:52 AM Provider notified: hospitalist Reason for notification: Pt having lots of pain not resolved by oxy. Can we get something IV? Thanks Orders: PRN IV dilaudid ordered. Plan of Care - Lionel Osborne RN - 02/17/2020 11:55 PM CDT nd of Shift Summary For vital signs and complete assessments, please see documentation flowsheets. Pertinent assessments: A&Ox4, C/O SOB, chest pain, oxycodone, Morphine given, O2 3 L., infrequent dry cough. Major Shift Events: Admission Treatment Plan: Rocephin, Zithromax, inhaler Discharge Readiness: Medically active Expected Discharge Date: TBD Discharge Disposition: Home with family Barriers/Criteria for discharge: Requiring oxygen, COVID 19 pending. Pharmacy-Admission Medication History - Jose Rafael Lujan [facility] - 02/17/2020 9:33 PM CDT Admission medication history interview status for this patient is complete. See [facility] admission navigator for allergy information, prior to admission medications and immunization status. Medication history interview done via telephone during Covid-19 pandemic, indicate source(s): Patient Medication history resources (including written lists, pill bottles, clinic record): [employer] dispense records Pharmacy: [id number] [place], [place] - [address] [address] [phone] Changes made to HIV PREVENTION SPECIALIST medication list: Added: Ventolin inhaler; Deleted: DuoNebs; Changed: 1. Symbicort 80-4.5mcg/act --> 160-4.5mcg/act two puffs BID 2. Bupropion XL 300mg --> 150mg HS 3. Zolpidem 5mg --> 10mg HS Actions taken by pharmacist (provider contacted, etc):None Additional medication history information:None Medication reconciliation/reorder completed by provider prior to medication history? No Prior to Admission medications Medication Sig Last Dose Taking? Auth Provider albuterol (PROAIR HFA/PROVENTIL HFA/VENTOLIN HFA) 108 (90 Base) MCG/ACT inhaler Inhale 1-2 puffs into the lungs every 4 hours as needed for shortness of breath / dyspnea or wheezing 02/16/2020 at Unknown time Yes Unknown, Entered By History ALPRAZolam (XANAX) 0.5 MG tablet Take 0.5 mg by mouth nightly as needed for anxiety 02/16/2020 at Unknown time Yes Unknown, Entered By History ARIPiprazole (ABILIFY) 10 MG tablet Take 10 mg by mouth At Bedtime 02/16/2020 at Unknown time Yes Unknown, Entered By History budesonide-formoterol (SYMBICORT) 160-4.5 MCG/ACT Inhaler Inhale 2 puffs into the lungs 2 times daily 02/17/2020 at x1 Yes Reported, Patient buPROPion (WELLBUTRIN XL) 150 MG 24 hr tablet Take 150 mg by mouth At Bedtime 02/16/2020 at Unknown time Yes Unknown, Entered By History DULoxetine (CYMBALTA) 30 MG capsule Take 60 mg by mouth At Bedtime 02/16/2020 at Unknown time Yes Reported, Patient methylphenidate (RITALIN) 20 MG tablet Take 20 mg by mouth 3 times daily 02/16/2020 at Unknown time Yes Unknown, Entered By History Multiple Vitamins-Minerals (MULTIVITAMIN ADULT PO) Take 1 tablet by mouth daily 02/16/2020 at Unknowntime Yes Unknown, Entered By History zolpidem (AMBIEN) 10 MG tablet Take 10 mg by mouth At Bedtime 02/16/2020 at Unknown time Yes Unknown,Entered By History albuterol (2.5 MG/3ML) 0.083% neb solution Take 1 vial by nebulization every 4 hours as needed for wheezing Unknown, Entered By History documented in this encounter Plan of Treatment Scheduled Orders Name Type Priority Associated Diagnoses Order S chedule Exercise oximetry PFT Routine One Time f or 1 Occurrences starting 2019 until 02/19/2020 documented as of this encounter Procedures Procedure Name Priority Date/Time Associated Diagnosis Comme nts POTASSIUM Timed 02/19/2020 3:48 Pneumonia of left Results for this PM CDT lower lobe due to procedure are in Streptococcus the results pneumoniae (H) section. BASIC METABOLIC PANEL Routine 02/19/2020 7:34 Pneumonia of rig ht Results for this AM CDT lower lobe due to procedure are in infectious organism the resu lts section. CBC WITH PLATELETS Routine 02/19/2020 7:34 Pneumonia of right Results for this AM CDT lower lobe due to procedure are in infectious organism the resu lts section. ECHO COMPLETE WITH Routine 02/18/2020 11:40 Resul ts for this CONTRAST AM CDT procedure are i n the results section. BASIC METABOLIC PANEL Routine 02/18/2020 8:45 Pneumonia of rig ht Results for this AM CDT lower lobe due to procedure are in infectious organism the resu lts section. XR CHEST PORT 1 VIEW STAT 02/18/2020 2:08 Resu lts for this AM CDT procedure are i n the results section. LACTATE FOR SEPSIS STAT 02/18/2020 1:17 Pneumonia of right Results for this PROTOCOL AM CDT lower lobe due to procedure are in infectious organism the resu lts section. SARS-COV-2 (COVID-19) Routine 02/17/2020 8:18 Pneumonia of rig ht Results for this VIRUS RT-PCR PM CDT lower lobe due to procedure are in infectious organism the resu lts section. COVID-19 VIRUS STAT 02/17/2020 8:18 Pneumonia of right Resu lts for this (CORONAVIRUS) BY PCR PM CDT lower lobe due to pr ocedure are in infectious organism the resu lts section. BLOOD CULTURE STAT 02/17/2020 8:18 Pneumonia of right Resul ts for this PM CDT lower lobe due to procedure are in infectious organism the resu lts section. BLOOD CULTURE STAT 02/17/2020 8:18 Pneumonia of right Resul ts for this PM CDT lower lobe due to procedure are in infectious organism the resu lts section. CT CHEST PULMONARY STAT 02/17/2020 6:55 Result s for this EMBOLISM W CONTRAST PM CDT procedur e are in the results section. XR CHEST PORT 1 VIEW STAT 02/17/2020 5:30 Resu lts for this PM CDT procedure are i n the results section. CBC WITH PLATELETS & STAT 02/17/2020 4:23 Resu lts for this DIFFERENTIAL PM CDT procedure are i n the results section. TROPONIN I STAT 02/17/2020 4:23 Results for this PM CDT procedure are i n the results section. COMPREHENSIVE STAT 02/17/2020 4:23 Results for this METABOLIC PANEL PM CDT procedure ar e in the results section. EKG 12-LEAD, TRACING STAT 02/17/2020 3:13 Resu lts for this ONLY PM CDT procedure are i n the results section. documented in this encounter Results Potassium (02/19/2020 3:48 PM CDT) athologist Signature Potassium 4.4 3.4 - 5.3 02/19/2020 [facility] mmol/L 4:11 PM CDT HOSPITAL Specimen Anatomical Collection Method Collection Time Receive d Time (Source) Location / / Volume Laterality Blood specimen 02/19/2020 3:48 PM 020 3:49 (specimen) CDT PM CDT Roz Shetty MD LAB - BLOOD ORDERABLES Performing Organization Address City/State/ZIP Code Phon e Number M [facility] [address], [place] [address] [facility] [address], [place] [address] [facility] [phone] CBC with platelets (02/19/2020 7:34 AM CDT) athologist Signature WBC 9.9 4.0 - 11.0 02/19/2020 [facility] 10e9/L 7:51 AM [facility] RBC Count 3.88 3.8 - 5.2 02/19/2020 [facility] 10[facility]12/L 7:51 AM [facility] Hemoglobin 12.0 11.7 - 02/19/2020 [facility] 15.7 g/dL 7:51 AM [facility] Hematocrit 36.5 35.0 - 02/19/2020 [facility] 47.0 % 7:51 AM [facility] MCV 94 78 - 100 02/19/2020 [facility] fl 7:51 AM [facility] MCH 30.9 26.5 - 02/19/2020 [facility] 33.0 pg 7:51 AM [facility] MCHC 32.9 31.5 - 02/19/2020 [facility] 36.5 g/dL 7:51 AM [facility] RDW 13.5 10.0 - 02/19/2020 [facility] 15.0 % 7:51 AM [facility] Platelet Count 274 150 - 450 02/19/2020 [facility] 10[facility]9/L 7:51 AM [facility] Specimen Anatomical Collection Method Collection Time Receive d Time (Source) Location / / Volume Laterality Blood specimen 02/19/2020 7:34 AM 020 7:35 (specimen) CDT AM CDT Roz Shetty MD LAB - BLOOD ORDERABLES Performing Organization Address City/State/ZIP Code Phon e Number M [facility] [address] [place] [address] [facility] [address] [phone] (ABNORMAL) Basic metabolic panel (02/19/2020 7:34 AM CDT) athologist Signature Sodium 142 133 - 144 02/19/2020 [place] mmol/L 8:00 AM [facility] Potassium 3.1 (L) 3.4 - 5.3 02/19/2020 [place] mmol/L 8:00 AM [facility] Chloride 111 (H) 94 - 109 02/19/2020 [place] mmol/L 8:00 AM [facility] Carbon Dioxide 25 20 - 32 02/19/2020 [place] mmol/L 8:06 AM [facility] Anion Gap 6 3 - 14 02/19/2020 [place] mmol/L 8:06 AM [facility] Glucose 154 (H) 70 - 99 02/19/2020 [place] mg/dL 8:06 AM [facility] Urea Nitrogen 17 7 - 30 02/19/2020 [place] mg/dL 8:06 AM [facility] Creatinine 0.87 0.52 - 02/19/2020 [place] 1.04 mg/dL 8:06 AM [facility] GFR Estimate 78 >60 02/19/2020 [place] mL/min/{1. 8:06 AM [facility] 73_m2} [facility] Comment: Non GFR Calc Starting 09/04/2018, serum creatinine ba sed estimated GFR (eGFR) will be calculated using the Chronic Kidney Dise [facility] Epidemiology Collaboration (CKD-EPI) equation. GFR Estimate If >90 >60 mL/min/{1.73_m2} 02/19/2020 8: 06 AM [facility] Comment: GFR Calc Starting 09/04/2018, serum creatinine ba sed estimated GFR (eGFR) will be calculated using the Chronic Kidney Dise [facility] Epidemiology Collaboration (CKD-EPI) equation. Calcium 8.7 8.5 - 10.1 mg/dL 02/19/2020 8:06 AM [facility] Specimen Anatomical Collection Method Collection Time Receive d Time (Source) Location / / Volume Laterality Blood specimen 02/19/2020 7:34 AM 020 7:35 (specimen) CDT AM T Roz Shetty MD LAB - BLOOD ORDERABLES Performing Organization Address City/State/ZIP Code Phon e Number M [facility] [address] [address] [facility] [address] [place] [address], [facility] [phone] [facility] [address] [address], [facility] ECHO COMPLETE WITH CONTRAST (02/18/2020 11:40 AM CDT) Anatomical Region Laterality Modality Echocardiography Specimen (Source) Anatomical Collection Method Collection Time Re ceived Time Location / / Volume Laterality 02/18/2020 11:34 AM CDT Narrative 02/18/2020 1:30 PM CDT [id number]^ANWER^ANI^SAMINA [facility] [address] [place] [address] Name: RAJESH STEVENS : 1970 Study Date: 02/18/2020 11:34 AM Age: 49 yrs Gender: Female Patient Location: [facility] Reason For Study: SOB Ordering Physician: ROZ SHETTY Performed By: Keshawn Elam RDCS BSA: 2.4 m2 Height: 72 in Weight: 264 lb HR: 99 BP: 117/61 mmHg __ Procedure Complete Portable Echo Adult. Kasey (N DC #[id number]) given intravenously. __ Interpretation Summary Left ventricular size, global systolic f unction, and wall motion are normal, estimated LVEF 60-65%. Right ventricular global function is nor mal. No significant valvular abnormalities. There are no prior studies available for comparison. __ Left Ventricle The left ventricle is normal in size. Th ere is concentric remodeling present. Left ventricular systolic function is no rmal. The visual ejection fraction is estimated at 60-65%. Left ventricular di astolic function is normal. No regional wall motion abnormalities noted . Right Ventricle The right ventricle is normal in structu re, function and size. Atria Normal left atrial size. Right atrial si ze is normal. There is no color Doppler evidence of an atrial shunt. Mitral Valve The mitral valve is normal in structure and function. There is no mitral valve stenosis. Tricuspid Valve The tricuspid valve is not well visualiz ed, but is grossly normal. Aortic Valve The aortic valve is normal in structure and function. Pulmonic Valve The pulmonic valve is not well seen, but is grossly normal. Vessels The aortic root is normal size. Normal s ize ascending aorta. Dilation of the inferior vena cava is present with jennyfer l respiratory variation in diameter. IVC diameter and respiratory changes fal l into an intermediate range suggesting an RA pressure of 8 mmHg. Pericardium There is no pericardial effusion. __ MMode/2D Measurements & Calculations IVSd: 1.1 cm LVIDd: 4.8 cm LVIDs: 2.7 cm LVPWd: 1.1 cm FS: 44.0 % LV mass(C)d: 189.1 grams LV mass(C)dI: 78.9 grams/m2 Ao root diam: 3.7 cm LA dimension: 4.2 cm asc Aorta Diam: 3.2 cm LA/Ao: 1.1 LVOT diam: 2.2 cm LVOT area: 3.8 cm2 LA Volume (BP): 79.0 ml LA Volume Index (BP): 32.9 ml/m2 RWT: 0.46 Doppler Measurements & Calculations MV E max rafy: 71.8 cm/sec MV A max rafy: 113.0 cm/sec MV E/A: 0.64 MV max P.3 mmHg MV mean P.0 mmHg MV V2 VTI: 23.3 cm MVA(VTI): 4.3 cm2 MV dec time: 0.16 sec LV V1 max P.8 mmHg LV V1 max: 130.0 cm/sec LV V1 VTI: 26.1 cm CO(LVOT): 10.2 l/min CI(LVOT): 4.3 l/min/m2 SV(LVOT): 99.2 ml SI(LVOT): 41.4 ml/m2 PA acc time: 0.11 sec TR max rafy: 235.0 cm/sec TR max P.1 mmHg E/E' av.6 Lateral E/e': 7.9 Medial E/e': 9.2 __ Report approved by: Yvrose Maier 02/17 01:30 PM Procedure Note Milton Rogel MD - 02/18/2020Formatting o f this note might be different from the original. [id number] [facility] [id number]^SENA^ROZ^SAMINA [facility] [address] [place] [id number] Name: RAJESH STEVENS : 1970 Study Date: 02/18/2020 11:34 AM Age: 49 yrs Gender: Female Patient Location: [facility] Reason For Study: SOB Ordering Physician: ROZ SHETTY Performed By: Keshawn Elam RDCS BSA: 2.4 m2 Height: 72 in Weight: 264 lb HR: 99 BP: 117/61 mmHg __ Procedure Complete Portable Echo Adult. Optison (Waqas DC #[id number]) given intravenously. __ Interpretation Summary Left ventricular size, global systolic f unction, and wall motion are normal, estimated LVEF 60-65%. Right ventricular global function is nor mal. No significant valvular abnormalities. There are no prior studies available for comparison. __ Left Ventricle The left ventricle is normal in size. Th ere is concentric remodeling present. Left ventricular systolic function is no rmal. The visual ejection fraction is estimated at 60-65%. Left ventricular di astolic function is normal. No regional wall motion abnormalities noted . Right Ventricle The right ventricle is normal in structu re, function and size. Atria Normal left atrial size. Right atrial si ze is normal. There is no color Doppler evidence of an atrial shunt. Mitral Valve The mitral valve is normal in structure and function. There is no mitral valve stenosis. Tricuspid Valve The tricuspid valve is not well visualiz ed, but is grossly normal. Aortic Valve The aortic valve is normal in structure and function. Pulmonic Valve The pulmonic valve is not well seen, but is grossly normal. Vessels The aortic root is normal size. Normal s ize ascending aorta. Dilation of the inferior vena cava is present with jennyfer l respiratory variation in diameter. IVC diameter and respiratory changes fal l into an intermediate range suggesting an RA pressure of 8 mmHg. Pericardium There is no pericardial effusion. __ MMode/2D Measurements & Calculations IVSd: 1.1 cm LVIDd: 4.8 cm LVIDs: 2.7 cm LVPWd: 1.1 cm FS: 44.0 % LV mass(C)d: 189.1 grams LV mass(C)dI: 78.9 grams/m2 Ao root diam: 3.7 cm LA dimension: 4.2 cm asc Aorta Diam: 3.2 cm LA/Ao: 1.1 LVOT diam: 2.2 cm LVOT area: 3.8 cm2 LA Volume (BP): 79.0 ml LA Volume Index (BP): 32.9 ml/m2 RWT: 0.46 Doppler Measurements & Calculations MV E max rafy: 71.8 cm/sec MV A max rafy: 113.0 cm/sec MV E/A: 0.64 MV max P.3 mmHg MV mean P.0 mmHg MV V2 VTI: 23.3 cm MVA(VTI): 4.3 cm2 MV dec time: 0.16 sec LV V1 max P.8 mmHg LV V1 max: 130.0 cm/sec LV V1 VTI: 26.1 cm CO(LVOT): 10.2 l/min CI(LVOT): 4.3 l/min/m2 SV(LVOT): 99.2 ml SI(LVOT): 41.4 ml/m2 PA acc time: 0.11 sec TR max rafy: 235.0 cm/sec TR max P.1 mmHg E/E' av.6 Lateral E/e': 7.9 Medial E/e': 9.2 __ Report approved by: Yvrose Maier 02/17 01:30 PM Roz Shetty MD CV ECHO ORDERABLES (ABNORMAL) Basic metabolic panel (02/18/2020 8:45 AM CDT) P athologist Signature Sodium 138 133 - 144 02/18/2020 [place] mmol/L 9:13 AM [facility] Potassium 3.7 3.4 - 5.3 02/18/2020 [place] mmol/L 9:13 AM [facility] Chloride 105 94 - 109 02/18/2020 [place] mmol/L 9:13 AM [facility] Carbon Dioxide 26 20 - 32 02/18/2020 [place] mmol/L 9:20 AM [facility] Anion Gap 7 3 - 14 02/18/2020 [place] mmol/L 9:20 AM [facility] Glucose 148 (H) 70 - 99 02/18/2020 [place] mg/dL 9:20 AM [facility] Urea Nitrogen 15 7 - 30 02/18/2020 [place] mg/dL 9:20 AM [facility] Creatinine 0.75 0.52 - 02/18/2020 [place] 1.04 mg/dL 9:20 AM [facility] GFR Estimate >90 >60 02/18/2020 [place] mL/min/{1. 9:20 AM [facility] 73_m2} HOSPITAL Comment: Non GFR Calc Starting 09/04/2018, serum creatinine ba sed estimated GFR (eGFR) will be calculated using the Chronic Kidney Dise [facility] Epidemiology Collaboration (CKD-EPI) equation. GFR Estimate If >90 >60 mL/min/{1.73_m2} 02/18/2020 9: 20 AM [facility] Comment: GFR Calc Starting 09/04/2018, serum creatinine ba sed estimated GFR (eGFR) will be calculated using the Chronic Kidney Dise [facility] Epidemiology Collaboration (CKD-EPI) equation. Calcium 8.8 8.5 - 10.1 mg/dL 02/18/2020 9:20 AM [facility] Specimen Anatomical Collection Method Collection Time Receive d Time (Source) Location / / Volume Laterality Blood specimen 02/18/2020 8:45 AM 020 8:57 (specimen) CDT AM CDT Ken Christian DO LAB - BLOOD ORDERABLES Performing Organization Address City/State/ZIP Code Phon e Number M [facility] [address] [address] [facility] [address], [place] [address], [facility] [phone] [facility] [address] [address], [facility] XR Chest Port 1 View (02/18/2020 2:08 AM CDT) Anatomical Region Laterality Modality Chest Digital Radiography Specimen (Source) Anatomical Collection Method Collection Time Re ceived Time Location / / Volume Laterality 02/18/2020 1:51 AM CDT Impressions 02/18/2020 2:41 AM CDT IMPRESSION: 1. A small patchy opacity in the right l lily base is nonspecific, but could represent pneumonia or scarring. 2. No other findings suspicious for acti ve cardiopulmonary disease. Narrative 02/18/2020 2:41 AM CDT EXAM: CHEST SINGLE VIEW PORTABLE LOCATION: [facility] DATE/TIME: 02/18/2020 1:51 AM INDICATION: Shortness of breath. COMPARISON: 02/17/2020 - CT chest. FINDINGS: A small patchy opacity is pres ent in the lateral aspect of the right lung base, also described on the recent comparison CT scan. The lungs are otherwise clear. Normal-sized cardiac silhouette. Procedure Note Branden Bedolla MD - 02/18/2020Fo rmatting of this note might be different from the original. EXAM: CHEST SINGLE VIEW PORTABLE LOCATION: [facility] DATE/TIME: 02/18/2020 1:51 AM INDICATION: Shortness of breath. COMPARISON: 02/17/2020 - CT chest. FINDINGS: A small patchy opacity is pres ent in the lateral aspect of the right lung base, also described on the recent comparison CT scan. The lungs are otherwise clear. Normal-sized cardiac silhouette. IMPRESSION: 1. A small patchy opacity in the right l lily base is nonspecific, but could represent pneumonia or scarring. 2. No other findings suspicious for acti ve cardiopulmonary disease. Deondre Ackerman DO IM DIAGNOSTIC IMAGING ORDER RENA Lactic acid level STAT (02/18/2020 1:17 AM CDT) athologist Signature Lactate for 1.0 0.7 - 2.0 02/18/2020 [place] Sepsis Protocol mmol/L 1:27 AM CDT [facility] Specimen Anatomical Collection Method Collection Time Receive d Time (Source) Location / / Volume Laterality Blood specimen 02/18/2020 1:17 AM 020 1:24 (specimen) CDT AM CDT Ken Christian DO LAB - BLOOD ORDERABLES Performing Organization Address City/State/ZIP Code Phon e Number M [place] [address] [address] [place], [place] [address] [facility] [address], [place] [address] [phone] SARS-CoV-2 COVID-19 Virus (Coronavirus) RT-PCR Nasopharyngeal (02/17/2020 8:18 PM CDT) [facility] Method Time Signature SARS-CoV-2 Nasopharyngeal 02/18/2020 INFECTIOUS Virus 10:04 AM DISEASES Specimen CDT DIAGNOSTIC Source LABORATORY SARS-CoV-2 NEGATIVE 02/18/2020 INFECTIOUS PCR Result 10:04 AM DISEASES CDT DIAGNOSTIC LABORATORY Comment: SARS-CoV2 (COVID-19) RNA not detected, p resumed negative. Critical Value/Significant Value called to and read back by LATHA MALDONADO RN [id number] 6.2.20 MJ SARS-CoV-2 PCR The Simplexa COVID-19 direct PCR assay by [employer] on the [employer] instrument has been 02/18/2020 10:04 AM INFECTIOU S Comment given Emergency Use Authoriz ation (EUA) for the in vitro qualitative detection of RNA from CDT DISEASES the SARS-CoV2 virus in naso pharyngeal swabs in viral transport medium from patients with DIAGNOSTIC signs and symptoms of infect ion who are suspected of COVID-19. Performance is unknown in LABORATORY asymptomatic patients. Comment: Nasopharyngeal specimen is the preferred choice for swab-based SARS-CoV2 testing. Sample types other than nasopha ryngeal swabs were not included in the EUA. The test result from other sample types must be integrated into clinical context for interpretation. A negative result does not rule out the presence of real-time PCR inhibitors in the specimen or COVID-19 RNA in sai ntration below the limit of detection of the assay. The possibility of a false negative should be considered if the patients recent exposure or clinical pre sentation suggests COVID-19. Additional testing or repeat testing req uires consultation with the laboratory. Positive results should also be reported in accordance with local, state, and federal regulations. This test was valid ated by [facility] Infectious Diseases Diagnostic Laboratory. This lab oratory is certified under the Clinical Laboratory Improvement Amendmen ts of 1988 (CLIA-88) as qualified to perform high complexity clinical laborat ory testing. Specimen (Source) Anatomical Collection Method Collection Time Re ceived Time Location / / Volume Laterality Specimen from 02/17/2020 8:18 02/17/2020 nasopharyngeal PM CDT 8:38 PM CDT structure (specimen) Micheal Covington MD LAB - MICRO GENERAL ORDERABL ES Performing Organization Address City/[facility] Code Phon e Number INFECTIOUS DISEASES [address] [place] [address] DIAGNOSTIC LABORATORY, [facility] INFECTIOUS DISEASES [address] [place] [address], A DIAGNOSTIC LABORATORY Symptomatic COVID-19 Virus (Coronavirus) by PCR (02/17/2020 8:18 PM CDT) Component Value Ref Test Analysis Performed At [email or web address] Range Method Time Signature COVID-19 Nasopharyngeal 02/17/2020 [place] Virus PCR to 8:19 PM CDT [facility] Source COVID-19 Test received-See 02/17/2020 INFECTIOUS Virus PCR to reflex to IDDL 10:40 PM DISEASES U [facility] - test SARS CoV2 CDT DIAGNOSTIC Result (COVID-19) Virus LABORATORY RT-PCR Specimen (Source) Anatomical Collection Method Collection Time Re ceived Time Location / / Volume Laterality Specimen from 02/17/2020 8:18 02/17/2020 nasopharyngeal PM CDT 8:38 PM CDT structure (specimen) Micheal Covington MD LAB - MICRO GENERAL ORDERABL ES Performing Organization Address City/[facility] Phon e Number INFECTIOUS DISEASES [address] [place] [address] DIAGNOSTIC LABORATORY, [facility] [address] [place] [address], [facility] [phone] INFECTIOUS DISEASES [address] [place] [address], A DIAGNOSTIC LABORATORY Blood culture (02/17/2020 8:18 PM CDT) [email or web address] Method Time Signature Specimen Blood Left INFECTIOUS Description Hand DISEASES DIAGNOSTIC LABORATORY Culture Micro No growth 02/23/2020 INFECTIOUS 3:58 AM CDT DISEASES DIAGNOSTIC LABORATORY Specimen Anatomical Collection Method Collection Time Receive d Time (Source) Location / / Volume Laterality Blood specimen 02/17/2020 8:18 PM 020 8:26 (specimen) CDT PM CDT Comment: Left Hand Micheal Covington MD LAB - MICRO GENERAL ORDERABL ES Performing Organization Address [facility]/ZIP [facility] Phon e Number INFECTIOUS DISEASES [address] [place] [address] DIAGNOSTIC LABORATORY, [facility] INFECTIOUS DISEASES [address] [place] [address], A DIAGNOSTIC LABORATORY Blood culture (02/17/2020 8:18 PM CDT) [facility] Method Time Signature Specimen Blood INFECTIOUS Description Right Arm DISEASES DIAGNOSTIC LABORATORY Culture Micro No growth 02/23/2020 INFECTIOUS 3:58 AM CDT DISEASES DIAGNOSTIC LABORATORY Specimen Anatomical Collection Method Collection Time Receive d Time (Source) Location / / Volume Laterality Blood specimen 02/17/2020 8:18 PM 020 8:26 (specimen) CDT PM CDT Comment: Right Arm Micheal Covington MD LAB - MICRO GENERAL ORDERABL ES Performing Organization Address [facility] Phon e Number INFECTIOUS DISEASES [address] [place] [address] DIAGNOSTIC LABORATORY, [facility] INFECTIOUS DISEASES [address] [place] [address], A DIAGNOSTIC LABORATORY CT Chest Pulmonary Embolism w Contrast (02/17/2020 6:55 PM CDT) Anatomical Region Laterality Modality Chest, SUBRAD CT BODY, UMP CT CHEST Comp uted Tomography Specimen (Source) Anatomical Collection Method Collection Time Re ceived Time Location / / Volume Laterality 02/17/2020 6:47 PM CDT Impressions 02/17/2020 7:24 PM CDT IMPRESSION: 1. ??No evidence for pulmonary embolism. 2. ??Right lower lobe consolidation susp icious for pneumonia. Follow-up recommended. Narrative 02/17/2020 7:24 PM CDT EXAM: CT CHEST PULMONARY EMBOLISM W CONTRAST LOCATION: [facility] DATE/TIME: 02/17/2020 6:47 PM INDICATION: Shortness of breath COMPARISON: None. TECHNIQUE: CT angiogram chest during art erial phase injection IV contrast. 2D and 3D MIP reconstructions were performed by the medical technologist chief. Dose reduction techniques were used. CONTRAST: 74mL Isovue-370 FINDINGS: ANGIOGRAM CHEST: No evidence for pulmona ry embolism. Pulmonary arteries normal in caliber. Thoracic aorta normal in caliber. No aortic dissection or other acute abnormality. HEART: Cardiac chambers within normal li mits. No pericardial effusion. LUNGS AND PLEURA: Right lower lobe poste rior basal consolidation and trace adjacent pleural effusion. Left lung clear. No suspicious pulmonary nodule. No pleural effusion or pneumothorax. MEDIASTINUM: Small hiatal hernia. No adelina nopathy or mass per LIMITED UPPER ABDOMEN: Negative. MUSCULOSKELETAL: Negative. Procedure Note Deondre Apodaca MD - 02/17/2020Formatt ing of this note might be different from the original. EXAM: CT CHEST PULMONARY EMBOLISM W CONT RAST LOCATION: [facility] DATE/TIME: 02/17/2020 6:47 PM INDICATION: Shortness of breath COMPARISON: None. TECHNIQUE: CT angiogram chest during art erial phase injection IV contrast. 2D and 3D MIP reconstructions were performed by the medical technologist chief. Dose reduction techniques were used. CONTRAST: 74mL Isovue-370 FINDINGS: ANGIOGRAM CHEST: No evidence for pulmona ry embolism. Pulmonary arteries normal in caliber. Thoracic aorta normal in caliber. No aortic dissection or other acute abnormality. HEART: Cardiac chambers within normal li mits. No pericardial effusion. LUNGS AND PLEURA: Right lower lobe poste rior basal consolidation and trace adjacent pleural effusion. Left lung clear. No suspicious pulmonary nodule. No pleural effusion or pneumothorax. MEDIASTINUM: Small hiatal hernia. No adelina nopathy or mass per LIMITED UPPER ABDOMEN: Negative. MUSCULOSKELETAL: Negative. IMPRESSION: 1. No evidence for pulmonary embolism. 2. Right lower lobe consolidation suspic ious for pneumonia. Follow-up recommended. Micheal Covington MD IMG CT ORDERABLES XR Chest Port 1 View (02/17/2020 5:30 PM CDT) Anatomical Region Laterality Modality Chest Digital Radiography Specimen (Source) Anatomical Collection Method Collection Time Re ceived Time Location / / Volume Laterality 02/17/2020 4:57 PM CDT Impressions 02/17/2020 6:35 PM CDT IMPRESSION: Negative chest. Narrative 02/17/2020 6:35 PM CDT EXAM: XR CHEST PORT 1 VW LOCATION: [facility] DATE/TIME: 02/17/2020 4:57 PM INDICATION: Chest pain COMPARISON: None. Procedure Note Deondre Apodaca MD - 02/17/2020Formatt ing of this note might be different from the original. EXAM: XR CHEST PORT 1 VW LOCATION: [facility] DATE/TIME: 02/17/2020 4:57 PM INDICATION: Chest pain COMPARISON: None. IMPRESSION: Negative chest. Micheal Covington MD IMG DIAGNOSTIC IMAGING ORDER RENA (ABNORMAL) Comprehensive metabolic panel (02/17/2020 4:23 PM T) athologist Signature Sodium 140 133 - 144 02/17/2020 [place] mmol/L 5:12 PM [facility] Potassium 3.8 3.4 - 5.3 02/17/2020 [place] mmol/L 5:12 PM [facility] Chloride 106 94 - 109 02/17/2020 [place] mmol/L 5:12 PM [facility] Carbon Dioxide 27 20 - 32 02/17/2020 [place] mmol/L 5:18 PM [facility] Anion Gap 7 3 - 14 02/17/2020 [place] mmol/L 5:18 PM [facility] Glucose 119 (H) 70 - 99 02/17/2020 [place] mg/dL 5:18 PM [facility] Urea Nitrogen 12 7 - 30 02/17/2020 [place] mg/dL 5:18 PM [facility] Creatinine 0.69 0.52 - 02/17/2020 [place] 1.04 mg/dL 5:18 PM [facility] GFR Estimate >90 >60 02/17/2020 [place] mL/min/{1. 5:18 PM [facility] 73_m2} [facility] Comment: Non GFR Calc Starting 09/04/2018, serum creatinine ba sed estimated GFR (eGFR) will be calculated using the Chronic Kidney Dise [facility] Epidemiology Collaboration (CKD-EPI) equation. GFR Estimate If >90 >60 mL/min/{1.73_m2} 02/17/2020 5: 18 PM [facility] Comment: GFR Calc Starting 09/04/2018, serum creatinine ba sed estimated GFR (eGFR) will be calculated using the Chronic Kidney Dise [facility] Epidemiology Collaboration (CKD-EPI) equation. Calcium 8.6 8.5 - 10.1 mg/dL 02/17/2020 5:[address] [facility] Bilirubin Total 0.9 0.2 - 1.3 mg/dL 02/17/2020 5:20 PM [facility] Albumin 3.4 3.4 - 5.0 g/dL 02/17/2020 5:20 PM [facility] Protein Total 7.6 6.8 - 8.8 g/dL 02/17/2020 5:20 PM [facility] Alkaline Phosphatase 87 40 - 150 U/L 02/17/2020 5:20 PM [facility] ALT 27 0 - 50 U/L 02/17/2020 5:20 PM [facility] AST 20 0 - 45 U/L 02/17/2020 5:20 PM [facility] Specimen Anatomical Collection Method Collection Time Receive d Time (Source) Location / / Volume Laterality Blood specimen 02/17/2020 4:23 PM 020 5:00 (specimen) CDT PM CDT Micheal Covington MD LAB - BLOOD ORDERABLES Performing Organization Address City/[facility]/ZIP [facility] Phon e Number [place] [address] [place] [address] [phone] Troponin I (02/17/2020 4:23 PM CDT) athologist Signature Troponin I ES <0.015 0.000 - 02/17/2020 [place] 0.045 ug/L 5:22 PM [facility] Comment: The 99th percentile for upper reference range is 0.045 ug/L. ??Troponin values in the range of 0.045 - 0.120 ug/L may b e associated with risks of adverse clinical events. Specimen Anatomical Collection Method Collection Time Receive d Time (Source) Location / / Volume Laterality Blood specimen 02/17/2020 4:23 PM 020 5:00 (specimen) CDT PM CDT Micheal Covington MD LAB - BLOOD ORDERABLES Performing Organization Address City/State/ZIP Code Phon e Number M [facility] [address] [place], [place] [address] [facility] [address], [place] [address], [facility] [phone] CBC with platelets differential (02/17/2020 4:[address] [facility]) [facility] Method Time Signature WBC 10.1 4.0 - 02/17/2020 [facility] 11.0 5:03 PM [facility] 10e9/L [facility] RBC Count 4.06 3.8 - 5.2 02/17/2020 [facility] 10e12/L 5:03 PM [facility] Hemoglobin 12.4 11.7 - 02/17/2020 [facility] 15.7 g/dL 5:03 PM [facility] Hematocrit 38.5 35.0 - 02/17/2020 [facility] 47.0 % 5:03 PM [facility] MCV 95 78 - 100 02/17/2020 [facility] fl 5:03 PM [facility] MCH 30.5 26.5 - 02/17/2020 [facility] 33.0 pg 5:03 PM [facility] MCHC 32.2 31.5 - 02/17/2020 [facility] 36.5 g/dL 5:03 PM [facility] RDW 13.3 10.0 - 02/17/2020 [facility] 15.0 % 5:03 PM [facility] Platelet Count 246 150 - 450 02/17/2020 [facility] 10e9/L 5:03 PM [facility] Diff Method Automated 02/17/2020 [facility] Method 5:03 PM [facility] % Neutrophils 72.6 % 02/17/2020 [facility] 5:03 PM [facility] % Lymphocytes 16.6 % 02/17/2020 [facility] 5:03 PM [facility] % Monocytes 9.4 % 02/17/2020 [facility] 5:03 PM [facility] % Eosinophils 1.0 % 02/17/2020 [facility] 5:03 PM [facility] % Basophils 0.3 % 02/17/2020 [facility] 5:03 PM [facility] % Immature 0.1 % 02/17/2020 [facility] Granulocytes 5:03 PM [facility] Nucleated RBCs 0 0 /100 02/17/2020 [facility] 5:03 PM [facility] Absolute 7.3 1.6 - 8.3 02/17/2020 [place] Neutrophil 10e9/L 5:03 PM [facility] Absolute 1.7 0.8 - 5.3 02/17/2020 [place] Lymphocytes 10e9/L 5:03 PM [facility] Absolute 1.0 0.0 - 1.3 02/17/2020 [place] Monocytes 10e9/L 5:03 PM [facility] Absolute 0.1 0.0 - 0.7 02/17/2020 [place] Eosinophils 10e9/L 5:03 PM [facility] Absolute 0.0 0.0 - 0.2 02/17/2020 [place] Basophils 10e9/L 5:03 PM [facility] Abs Immature 0.0 0 - 0.4 02/17/2020 [place] Granulocytes 10e9/L 5:03 PM [facility] Absolute 0.0 02/17/2020 [place] Nucleated RBC 5:03 PM [facility] Specimen Anatomical Collection Method Collection Time Receive d Time (Source) Location / / Volume Laterality Blood specimen 02/17/2020 4:23 PM 020 5:00 (specimen) CDT PM CDT Micheal Covington MD LAB - BLOOD ORDERABLES Performing Organization Address City/[facility]/ZIP [facility] Phon e Number [place] [address] [place] [address] [facility] [address] [phone] EKG 12-lead, tracing only (02/17/2020 3:13 PM CDT) [facility] gist Method Time Signature Interpretation ECG Click View RADIOLOGY Image link RESULTS to view waveform and result Specimen (Source) Anatomical Collection Method Collection Time Re ceived Time Location / / Volume Laterality 02/17/2020 3:13 PM CDT Uma Owen MD ECG ORDERABLES Performing Organization Address City/[facility]/ZIP [facility] Phon e Number RADIOLOGY RESULTS documented in this encounter Visit Diagnoses Diagnosis Pneumonia of left lower lobe due to Stre ptococcus pneumoniae (H) - Primary Pneumonia of right lower lobe due to inf ectious organism Hypoxia Hypoxemia Mild intermittent asthma with acute exac erbation Unspecified asthma, with exacerbation Pneumonia Pneumonia, organism unspecified documented in this encounter Administered Medications Inactive Administered Medications - up to 3 most recent administrations Medication Order MAR Action Action Date Dose Rate Site acetaminophen (TYLENOL) tablet 650 Given 02/18/2020 2:07 PM CDT 650 mg mg 650 mg, Oral, EVERY 4 HOURS PRN, mild pain, Starting on Mon02/17/20 at 2138, Alternate ibuprofen (if ordered) with acetaminophen. Maximum acetaminophen dose from all sources = 75 mg/kg/day not to exceed 4 grams/day. Given 02/18/2020 8:05 AM CDT 650 mg ALPRAZolam (XANAX) tablet 0.5 mg Given 02/19/2020 12:14 AM CDT 0.5 mg 0.5 mg, Oral, AT BEDTIME PRN, anxiety, Starting on Mon02/17/20 at 2232, Avoid taking with grapefruit juice ARIPiprazole (ABILIFY) tablet 10 mg Given 02/18/2020 9:37 PM CDT 10 mg 10 mg, Oral, AT BEDTIME, First dose on Mon02/17/20 at 2245 azithromycin (ZITHROMAX) 500 mg in sodium New Bag 02/17/2020 9 :30 PM CDT 500 mg chloride 0.9 % 250 mL intermittent infus ion STAT, 500 mg, Intravenous, ONCE, On Mon02/17/20 at 1928, For 1 dose, Indications: Community Acquired Pneumonia azithromycin (ZITHROMAX) tablet 250 mg Given 02/18/2020 9:38 PM CDT 250 mg Routine, 250 mg, Oral, DAILY, First dose on Mon02/18/20 at 2200, For 4 doses, Iv to po per protocol., Indications: Community Acquired Pneumonia budesonide-formoterol (SYMBICORT) 160-4.5 Given 02/19/2020 8:23 AM CDT 2 puffs MCG/ACT Inhaler 2 puff 2 puff, Inhalation, 2 TIMES DAILY, First dose on Mon02/17/20 at 2245, *Do not use more frequently than twice daily.* Rinse mouth after use. Given 02/18/2020 7:34 PM CDT 2 puffs Given 02/18/2020 8:32 AM CDT 2 puffs buPROPion (WELLBUTRIN XL) 24 hr tablet 1 50 mg Given 02/18/2020 9:37 PM CDT 150 mg 150 mg, Oral, AT BEDTIME, First dose on Mon02/17/20 at 2245, DO NOT CRUSH. Given 02/17/2020 11:14 PM CDT 150 mg cefTRIAXone (ROCEPHIN) 2 g vial to attach to New Bag 0 8:51 PM CDT 2 g NS 100 ml bag for ADULTS or NS 50 ml bag for PEDS STAT, 2 g, Intravenous, ONCE, On Mon02/17/20 at 1928, For 1 dose, First dose STAT and to be started in the unit ordered (ED) PRIOR to transfer or admission., Indications: Community Acquired Pneumonia cefTRIAXone (ROCEPHIN) 2 g vial to New Bag 02/18/2020 9:40 PM CDT 2 g 200 mL/hr attach to NS 100 ml bag for ADULTS or NS 50 ml bag for PEDS Routine, 2 g, Intravenous, EVERY 24 HOURS, First dose on Mon02/18/20 at 2200, First dose STAT and to be started in the unit ordered (ED) PRIOR to transfer or admission., Indications: Community Acquired Pneumonia CT Scan Flush Given 02/17/2020 6:47 PM CDT 90 mLs Intravenous, 100 mL, ONCE, On Mon02/17/20 at 1848, For 1 dose, This entry is for use by Radiology to intermittently used as a flush in patients receiving a CT scan. diclofenac (VOLTAREN) 1 % topical gel 4 g Given 02/18/2020 9:44 PM CDT 4 g 4 g, Transdermal, 4 TIMES DAILY, First dose on Mon02/18/20 at 0900, Apply to chest Send dosing card with product. Given 02/18/2020 5:15 PM CDT 4 g DULoxetine (CYMBALTA) DR capsule 60 mg Given 02/18/2020 9:39 PM CDT 60 mg 60 mg, Oral, AT BEDTIME, First dose on Mon02/17/20 at 2245 Given 02/17/2020 11:14 PM CDT 60 mg fentaNYL (PF) (SUBLIMAZE) injection 75 m cg Given 02/17/2020 8:51 PM CDT 75 mcg 75 mcg, Intravenous, ONCE, On Mon02/17/20 at 2028, For 1 dose, For ordered IV doses 1-100 mcg give IV Push undiluted over a minimum of 3-5 minutes. HYDROmorphone (DILAUDID) injection 1 mg Given 02/17/2020 5:17 PM CDT 1 mg 1 mg, Intravenous, ONCE, On Mon02/17/20 at 1714, For 1 dose, Moderate to severe pain HYDROmorphone (DILAUDID) injection 1 mg Given 02/17/2020 6:05 PM CDT 1 mg 1 mg, Intravenous, ONCE, On Mon02/17/20 at 1759, For 1 dose, Moderate to severe pain HYDROmorphone (DILAUDID) injection 1 mg Given 02/17/2020 7:11 PM CDT 1 mg 1 mg, Intravenous, ONCE, On Mon02/17/20 at 1909, For 1 dose HYDROmorphone (PF) (DILAUDID) injection Given 02/18/2020 8:55 PM CDT 0.5 mg 0.3-0.5 mg 0.3-0.5 mg, Intravenous, EVERY 3 HOURS PRN, moderate to severe pain, Starting on Mon02/18/20 at 0053, For ordered IV doses 0.1-4 mg give IV Push undiluted. Administer each 2mg over 2-5 minutes. Given 02/18/2020 5:13 PM CDT 0.5 mg Given 02/18/2020 11:47 AM CDT 0.5 mg hydrOXYzine (ATARAX) tablet 25-50 mg 25-50 mg, Oral, EVERY 6 HOURS PRN, pain, Starting on on 02/17/20 at 2231 ibuprofen (ADVIL/MOTRIN) tablet 400 mg 400 mg, Oral, EVERY 6 HOURS PRN, moderate pain (4-6), Starting on Mon02/17/20 at 2231 iopamidol (ISOVUE-370) solution 500 mL Given 02/17/2020 6:47 PM CDT 74 mLs 500 mL, Intravenous, ONCE, On Mon02/17/20 at 1848, For 1 dose ipratropium - albuterol 0.5 mg/2.5 mg/3 mL Given 02/19/2020 8:23 AM CDT 3 mLs (DUONEB) neb solution 3 mL 3 mL, Nebulization, 4 TIMES DAILY RT, First dose on Mon02/18/20 at 1600 Given 02/18/2020 7:34 PM CDT 3 mLs ketorolac (TORADOL) injection 30 mg Given 02/19/2020 10:44 AM CDT 30 mg 30 mg, Intravenous, EVERY 6 HOURS PRN, moderate to severe pain, Starting on Mon02/18/20 at 0140, For 5 days, Do not give within 6 hours of Ibuprofen Can cause pain on injection. If ordered intravenously (IV) : administer through a running maintenance fluid over 1 minute followed by a flush. If patient complains of pain on injection, may dilute 15-30 mg in 5 mL and push over 1 to 2 minutes. Given 02/19/2020 2:17 AM CDT 30 mg Given 02/18/2020 3:39 PM CDT 30 mg Lidocaine (LIDOCARE) 4 Patch/Med Applied 02/19/2020 8:07 AM 2 patches Right Chest % Patch 2 patch CDT 2 patch, Transdermal, EVERY 24 HOURS 0800, Administer over 12 Hours, First dose on Mon02/18/20 at 0800, Apply patch(s) to chest. To prevent lidocaine toxicity, patient should be patch free for 12 hrs daily. Patches may be cut to smaller size prior to removing release liner. Reminder: Remove previous patch before applying new patch. NEVER APPLY HEAT OVER PATCH which increases absorption and may lead to local anesthetic toxicity. Do not apply over area where liposomal bupivacaine was injected for 96 hours post injection. Patch/Med Applied 02/18/2020 8:21 AM CDT 2 patches Right Chest lidocaine patch in PLACE First dose on Mon02/18/20 at 0800, Chart every shift, confirming that patch is still in place on patient (no barcode scan nee ded). See patch order for dose information. NEVER APPLY HEAT OVER PATCH which will i ncrease absorption and may lead to risk of local anesthetic toxicity. Do not apply over area wher e liposomal bupivacaine injected for 96 hours. LORazepam (ATIVAN) injection 0.5 mg Given 02/17/2020 6:06 PM CDT 0.5 mg 0.5 mg, Intravenous, ONCE, On Mon02/17/20 at 1759, For 1 dose, This drug may cause significant respiratory depression. Monitor respiratory status and vital signs carefully for 1 hour after each dose. menthol (ICY HOT) 5 % patch 1 patch 1 patch, Topical, EVERY 8 HOURS PRN, muscle soreness, Administer over 8 Hours, Starting on Mon02/17/20 at 2232, Apply to Skin. Remove 'old patch' and chart on Medication Patch Removal order when new patch is applied. Avoid placing heating pad over the patch. Reminder: Remove previous patch before applying new patch. menthol (ICY HOT) Patch in Place First dose on Mon02/17/20 at 2245, Chart every shift, confirming that patch is still in place on patient (no barcode scan nee ded). See patch order for dose information. methylphenidate (RITALIN) tablet 20 mg Given 02/19/2020 4:09 PM CDT 20 mg 20 mg, Oral, 3 TIMES DAILY, First dose on Mon02/18/20 at 0900 Given 02/19/2020 12:41 PM CDT 20 mg Given 02/19/2020 8:07 AM CDT 20 mg morphine (PF) injection 4 mg Given 02/17/2020 10:05 PM CDT 4 mg 4 mg, Intravenous, EVERY 15 MIN PRN, other, pain control or improvement in physical function. Hold dose for analgesic side effects., Starting on Mon02/17/20 at 1611, For 3 doses, Notify the provider to assess for uncontrolled pain or analgesic side effects. Hold while on IV [employer] or with regular IV opioid dosing. For ordered IV doses 0.1-15 mg give IV Push undiluted over 4-5 minutes. Given 02/17/2020 4:50 PM CDT 4 mg Given 02/17/2020 4:25 PM CDT 4 mg ondansetron (ZOFRAN) injection 4 mg Given 02/18/2020 8:55 PM CDT 4 mg 4 mg, Intravenous, EVERY 6 HOURS PRN, nausea, vomiting, Administer over 2-5 Minutes, Starting on Mon02/17/20 at 2138, This is Step 1 of nausea and vomiting management. If nausea not resolved in 15 minutes, go to Step 2 prochlorperazine (COMPAZINE). Irritant. For ordered IV doses 0.1-4 mg, give IV Push undiluted over 2-5 minutes. ondansetron (ZOFRAN-ODT) ODT tab 4 mg 4 mg, Oral, EVERY 6 HOURS PRN, nausea, v omiting, Starting on Mon02/17/20 at 2138, This is Step 1 of nausea and vomiting management. If n ausea not resolved in 15 minutes, go to Step 2 prochlorperazine (COMPAZINE). Do not push through foil backing. Peel back foil and gently remove. Place on to ngue immediately. Administration with liquid unnecessary W ith dry hands, peel back foil backing and gently remove tablet. Do not push oral d isintegrating tablet through foil backing. Administer immediately on tongue and oral disintegrati ng tablet dissolves in seconds, then swallow with saliva. Liquid not required . oxyCODONE (ROXICODONE) tablet 5 mg Given 02/19/2020 12:14 AM CDT 5 mg 5 mg, Oral, EVERY 4 HOURS PRN, moderate to severe pain, Starting on Mon02/17/20 at 2232 Given 02/18/2020 6:42 PM CDT 5 mg Given 02/18/2020 2:07 PM CDT 5 mg perflutren diluted 1mL to 2mL with saline Given 02/18/2020 11:40 AM CDT 3 mLs (OPTISON) diluted injection 3 mL 3 mL, Intravenous, ONCE, On Mon02/18/20 at 1145, For 1 dose, [facility] [id number] potassium chloride (KLOR-CON) Packet 20- 40 mEq 20-40 mEq, Oral or Feeding Tube, EVERY 2 HOURS PRN, po tassium supplementation, Starting on Mon02/19/20 at 0815, Use if unable to yousif ate tablets. If Serum K+ 3.0-3.3, dose = 60 mEq po total dose (40 mEq x1 followed in 2 hours by 20 mEq x1). Recheck K+ level 4 hours after dose and the next AM. If Serum K+ 2.5-2.9, dose = 80 mEq po total dose (40 mEq Q2H x2). Reche ck K+ level 4 hours after dose and the next AM. If Serum K+ less than 2.5, See IV or zafar. Dissolve packet contents in 4-8 ounces of cold water or juice. potassium chloride 10 mEq in 100 mL inte rmittent infusion with 10 mg lidocaine 10 mEq, Intravenous, Administer over 1 Hours, EVERY 1 HOUR PRN, potassium supplementation, Starting on Mon02/19/20 at 0815, Infuse via PERIPHERAL LINE. Use potassium with lidocaine for pain with peripheral admi nistration. If Serum K+ 3.0-3.3, dose = 10 mEq/hr x4 doses (40 m Eq IV total dose). Recheck K+ level 2 hours after dose and the next AM. If Serum K+ less than 3.0, dose = 10 mEq/hr x6 doses (60 mEq IV total dose). Recheck K+ level 2 hours after dose and the next AM. potassium chloride 10 mEq in 100 mL ster ile water intermittent infusion (premix) 10 mEq, Intravenous, Administer over 60 Minutes, at 100 mL/hr, EVERY 1 HOUR PRN, potassium supplementation, Starting on W ed 02/19/20 at 0815, Infuse via PERIPHERAL LINE or CENTRAL LINE. Use for central li ne replacement if patient weight less than 65 kg, if patient is on TPN with high po tassium content or if unit does not stock 20 mEq bags. If Serum K+ 3.0-3.3, dose = 10 mEq/hr x4 doses (40 mEq IV total dose). Recheck K+ level 2 hours after dose and the next AM. I f Serum K+ less than 3.0, dose = 10 mEq/hr x6 doses (60 mEq IV tot al dose). Recheck K+ level 2 hours after dose and the next AM. potassium chloride 20 mEq in 50 mL inter mittent infusion 20 mEq, Intravenous, EVERY 1 HOUR PRN, p otassium supplementation, Starting on 02/19/20 at 0815, Infuse via CENTRAL LINE Only. May need EKG if less than 65 kg or on TPN - Max rate is 0.3 mEq/kg/hr for patients not on EK G monitoring. If Serum K+ 3.0-3.3, dose = 20 mEq/hr x2 doses (40 m Eq IV total dose). Recheck K+ level 2 hours after dose and the next AM. If Serum K+ less than 3.0, dose = 20 mEq/hr x3 doses (60 mEq IV total dose). Recheck K+ level 2 hours after dose and the next AM. potassium chloride ER (KLOR-CON M) CR tablet Given 11/2019 11:14 AM CDT 20 mEq 20-40 mEq 20-40 mEq, Oral, EVERY 2 HOURS PRN, potassium supplementation, Starting on 02/19/20 at 0815, Use if able to take PO. If [...] 2.5, See IV order. DO NOT CRUSH Given 02/19/2020 9:02 AM CDT 40 mEq predniSONE (DELTASONE) tablet 40 mg Given 02/19/2020 8:07 AM CDT 40 mg 40 mg, Oral, DAILY, First dose on Mon02/18/20 at 0845 Given 02/18/2020 10:09 AM CDT 40 mg senna-docusate (SENOKOT-S/PERICOLACE) 8. 6-50 MG per tablet 1 tablet 1 tablet, Oral, 2 TIMES DAILY PRN, const ipation, Starting on Mon02/17/20 at 2138, If no bowel movement in 24 hours, increase to 2 tablets P O. Hold for loose stools. This is the first step of a three step constipation tr eatment. Hold for loose stools. senna-docusate (SENOKOT-S/PERICOLACE) 8. 6-50 MG per tablet 2 tablet 2 tablet, Oral, 2 TIMES DAILY PRN, const ipation, Starting on Mon02/17/20 at 2138, Hold for loose stools. This is the first step of a thr ee step constipation treatment. Hold for loose stools. sodium chloride (PF) 0.9% PF flush 10 mL Given 02/18/2020 11:39 AM CDT 10 mLs 10 mL, Intravenous, ONCE, On Mon02/18/20 at 1145, For 1 dose sodium chloride (PF) 0.9% PF flush 3 mL Given 02/19/2020 10:46 AM CDT 3 mLs 3 mL, Intracatheter, EVERY 1 MIN PRN, line flush, for peripheral IV flush post IV meds, Starting on Mon02/17/20 at 2137 Given 02/18/2020 1:05 AM CDT 3 mLs sodium chloride (PF) 0.9% PF flush 3 mL Given 02/19/2020 6:41 AM CDT 3 mLs 3 mL, Intracatheter, EVERY 8 HOURS, First dose on Mon02/17/20 at 2145, And Q1H PRN, to lock peripheral IV dormant line. Given 02/18/2020 9:40 PM CDT 3 mLs Given 02/18/2020 5:15 PM CDT 3 mLs documented in this encounter Active and Recently Administered Medications Times are shown in CDT. Scheduled Medication Order 02/17/2020 02/18/2020 02/19/2020 ARIPiprazole (ABILIFY) tablet 10 mg 0141 (z Missed (do not use) - Provider: Roxy Jones RN - Reason: Patient/family refused)2136 (Given - Provider: Larisa Frey RN) 10 mg, Oral, AT BEDTIME, First dose on Mon02/17/20 at 2245 azithromycin (ZITHROMAX) 500 mg in sodiu m chloride 0.9 % 250 mL intermittent infusion (COMPLETED) 2129 (New Bag - Provider: Lynnette Bahena RN) STAT, 500 mg, Intravenous, ONCE, 02/16 at 1928, For 1 dose, Indications: Community Acquired Pneumonia azithromycin (ZITHROMAX) tablet 250 mg 2 138 (Given - Provider: Larisa Frey RN) Routine, 250 mg, Oral, DAILY, First dose on Mon02/18/20 at 2200, For 4 doses, Iv to po per protocol., Indications: Community Acquired Pneumonia budesonide-formoterol (SYMBICORT) 160-4.5 MCG/ACT Inhaler 2 puff 005 (Canceled Entry - Provider: Lefty Vaughan, RT)0814 (z Missed (do not use) - Provider: Stephanie Damian RT - Reason: Patient/family refused)0832 (Given - Provider: Latha Maldonado, NATHAN) 0823 (Given - Provider: Sedrick Bejarano , RT) 2 puff, Inhalation, 2 TIMES DAILY, First dose on Mon02/17/20 at 2245, *Do not use more frequently than twice daily.* Rinse mouth after use. 1933 (Given - Provider: Adan Kingston RT - Comment: pt preferred time) buPROPion (WELLBUTRIN XL) 24 hr tablet 150 mg 2313 (Gi autumn - Provider: Lionel Osborne, RN) 2136 (Given - Provider: Larisa Frey RN) 150 mg, Oral, AT BEDTIME, First dose on Mon02/17/20 at 2245, DO N OT CRUSH. cefTRIAXone (ROCEPHIN) 2 g vial to attac h to NS 100 ml bag for ADULTS or NS 50 ml bag for PEDS (COMPLETED) 2050 (New Bag - Provider: Brigitte potter RN - Comment: Pt wanted to leave, decided to stay.)2105 (ED Infusing on Admission/transfer - Provider: Katie Johnson, NATHAN) STAT, 2 g, Intravenous, ONCE, Mon02/17/20 at 1928, For 1 dose, First dose STAT and to be started in the unit ordered (ED) PRIOR to transfer or admission., Indications: Community Acquired Pneumonia cefTRIAXone (ROCEPHIN) 2 g vial to attac h to NS 100 ml bag for ADULTS or NS 50 ml bag for PEDS 2139 (New Bag - Provider: Larisa reza RN) Routine, 2 g, Intravenous, EVERY 24 HOUR S, First dose on Mon02/18/20 at 2200, First dose STAT and to be started in the unit ordered (ED) PRIOR to transfer or admission., Indications: Community Acquired Pneumonia CT Scan Flush (COMPLETED) 1846 (Given - Provider: Ifeoma reza) Intravenous, 100 mL, ONCE, Mon02/17/20 at 1848, For 1 dose, This entry is for use by Radiology to intermittently used as a flush in patients receiving a CT scan. diclofenac (VOLTAREN) 1 % topical gel 4 g 1150 (z Missed (do not use) - Provider: Latha Maldonado RN - Reason: Other - Comment: lido patch in place)1201 (z Missed (do not use) - Provider: Latha Maldonado RN - Reason: Patient/family refused)1715 (Given - Provider: Melani Last RN) 0809 (z Missed (do not use) - Provider: Merary Pierre RN - Reason: Other - Comment: lidocaine patch in place)1245 (z Missed (do not use) - Provider: Merary Pierre, NATHAN - Reason: Other - Comment: patch on) 4 g, Transdermal, 4 TIMES DAILY, First d ose on Mon02/18/20 at 0900, Apply to chest Send dosing card with product. 2143 (Given - Pro vider: Larisa Frey RN) 1800 (Canceled Entry - Provider: Orders Generic Provider - Comment: Automatically canceled at discontinue of medication order) DULoxetine (CYMBALTA) DR capsule 60 mg 4 (Given - P rovider: Lionel Osborne RN) 2138 (Given - Provider: Larisa Frey RN) 60 mg, Oral, AT BEDTIME, First dose on Mon02/17/20 at 2245 fentaNYL (PF) (SUBLIMAZE) injection 75 mcg (COMPLETED) 2050 (Given - Provider: Brigitte De Luna RN) 75 mcg, Intravenous, ONCE, Mon02/17/20 at 202, For 1 dose, For ordered IV doses 1-100 mcg give IV Push undiluted over a minimum of 3-5 minutes. HYDROmorphone (DILAUDID) injection 1 mg (COMPLETED) 17 17 (Given - Provider: Brigitte De Luna RN) 1 mg, Intravenous, ONCE, Mon02/17/20 at 1 714, For 1 dose, Moderate to severe pain HYDROmorphone (DILAUDID) injection 1 mg (COMPLETED) 18 05 (Given - Provider: Brigitte De Luna RN) 1 mg, Intravenous, ONCE, Mon02/17/20 at 1 759, For 1 dose, Moderate to severe pain HYDROmorphone (DILAUDID) injection 1 mg (COMPLETED) 19 11 (Given - Provider: Brigitte De Luna RN) 1 mg, Intravenous, ONCE, Mon02/17/20 at 1909, For 1 dose iopamidol (ISOVUE-370) solution 500 mL (COMPLETED) 184 7 (Given - Provider: Ifeoma Sanchez) 500 mL, Intravenous, ONCE, Mon02/17/20 at 1848, For 1 dose ipratropium - albuterol 0.5 mg/2.5 mg/3 mL (DUONEB) neb solu tion 3 mL 1647 (z Missed (do not use) - Provider: Stephanie Damian RT - Reason: Other)193 (Given - Provider: Adan Kingston, RT) 0823 (Given - Provider: Sedrick Bejarano , RT)1155 (z Missed (do not use) - Provider: Sedrick Bejarano, RT - Reason: Patient/family refused)1529 (z Missed (do not use) - Provider: Sedrick Bejarano, RT - Reason: Patient/family refused) 3 mL, Nebulization, 4 TIMES DAILY, First dose on Mon02/18/20 at 1 600 Lidocaine (LIDOCARE) 4 % Patch 2 patch 0 821 (Patch/Med Applied - Provider: Latha Maldonado RN)2145 (Patch/Med Removed - Provider: Larisa Frey RN - Comment: patch removed earlier) 0807 (Patch/Med Applied - Provider: Laurie Pierre RN - Comment: 2 patches cut in half4 halves total, 2 fell off at 0940, 2 halves remaining)1622 (Due: Patch/Med Removed - Provider: Orders Generic Provider - Comment: Time automatically adjust 2 patch, Transdermal, EVERY 24 HOURS 080 0, Administer over 12 Hours, First dose on Mon02/18/20 at 0800, Apply patch(s) to chest. To prevent lidocaine toxicity, patient should be patch free for 12 hrs maurice ed from order being discontinued) ly. Patches may be cut to smaller size p rior to removing release liner. Reminder: Remove previous patch before applying new patch. NEVER APPLY HEAT OVER PATCH which increases absorption and may lead to local anesthetic toxicity. Do not apply over area where liposomal bupivacaine was injected for 96 hours post injection. lidocaine patch in PLACE 0845 (Patch in Place - Provider: Latha Maldonado RN)1507 (Patch Free Period - Provider: Melani Last RN - Comment: removed) 0014 (Patch Free Period - Provider: Jared Frey RN)0819 (Patch in Place - Provider: Merary Pierre RN - Comment: 2 patchs/ 4 pieces total3 to right chest, 1 to right back*2 halves since have fallen off at 0940, 2 halves remain*) First dose on Mon02/18/20 at 0800, Chart every shift, confirming that patch is still in place on patient (no barcode scan needed). See patch order for dose information. NEVER APPLY HEAT OVER PATCH which 1612 (Patch Free Period - Provider: Rain Oakley, RN) will increase absorption and may lead to risk of local anesthetic toxicity. Do not apply over area where liposomal bupivacaine injected for 96 hours. LORazepam (ATIVAN) injection 0.5 mg (COMPLETED) 1806 ( Given - Provider: Brigitte De Luna, NATHAN) 0.5 mg, Intravenous, ONCE, Mon02/17/20 at 1759, For 1 dose, This drug may cause significant respiratory depression. Monitor respiratory status and vital signs carefully for 1 hour after each dose. menthol (ICY HOT) Patch in Place(Linked Group 1) 0834 (Patch Free Period - Provider: Latha Maldonado RN)0844 (Patch Free Period - Provider: Latha Maldonado RN)1402 (Patch Free Period - Provider: Latha Maldonado RN)2145 (Patch Free Period - Provider: Larisa Frey RN) 0652 (Patch Free Period - Provider: Jared Frey RN)1440 (Patch Free Period - Provider: Merary Pierre RN) First dose on Mon02/17/20 at 2245, Chart every shift, confirming that patch is still in place on patient (no barcode scan needed). See patch order for dose information. methylphenidate (RITALIN) tablet 20 mg 1 009 (Given - Provider: Latha Maldonado RN)1531 (Given - Provider: Melani Last, NATHAN)1944 (Given - Provider: Melani Last, NATHAN - Comment: 3rd dose for today) 0807 (Given - Provider: Merary Pierre, NATHAN)1241 (Given - Provider: Merary Pierre, NATHAN)1609 (Given - Provider: Rain Oakley, RN) 20 mg, Oral, 3 TIMES DAILY, First dose on Mon02/18/20 at 0900 perflutren diluted 1mL to 2mL with salin e (OPTISON) diluted injection 3 mL (COMPLETED) 1140 (Given - Provider: Keshawn Elam) 3 mL, Intravenous, ONCE, Mon02/18/20 at 1145, For 1 dose, [facility] [id number] predniSONE (DELTASONE) tablet 40 mg 1009 (Given - Provider: Latha Maldonado RN) 0807 (Given - Provider: Meraryandriy Pierre RN) 40 mg, Oral, DAILY, First dose on Mon02/18/20 at 0845 sodium chloride (PF) 0.9% PF flush 10 mL (COMPLETED) 1139 (Given - Provider: Keshawn Elam) 10 mL, Intravenous, ONCE, Mon02/18/20 at 1145, For 1 dose sodium chloride (PF) 0.9% PF flush 3 mL 2208 (Given - Provider: Lionel Osborne RN) 0748 (Canceled Entry - Provider: Latha Maldonado RN)1344 (Canceled Entry - Provider: Latha Maldonado RN)1715 (Given - Provider: Melani Last, NATHAN)2140 (Given - Provider: Larisa Frey, NATHAN) 0641 (Given - Provider: Jeni Radford RN)1245 (z Missed (do not use) - Provider: Merary Pierre RN - Reason: Other - Comment: prn earlier, pt discharging) 3 mL, Intracatheter, EVERY 8 HOURS, Firs t dose on Mon02/17/20 at 2145, And Q1H PRN, to lock peripheral IV dormant line. PRN Medication Order 02/17/2020 02/18/2020 02/19/2020 acetaminophen (TYLENOL) Suppository 650 mg 650 mg, Rectal, EVERY 4 HOURS PRN, mild pain, Starting Mon02/17/20 at 2138, Alternate ibuprofen (if ordered) with acetaminophen. Maximum acetaminophen dose from all sources = 75 mg/kg/day not to exceed 4 grams/day. acetaminophen (TYLENOL) tablet 650 mg 08 05 (Given - Provider: Latha Maldonado RN)1407 (Given - Provider: Latha Maldonado RN) 650 mg, Oral, EVERY 4 HOURS PRN, mild pa in, Starting Mon02/17/20 at 2138, Alternate ibuprofen (if ordered) with acetaminophen. Maximum acetaminophen dose from all sources = 75 mg/kg/day not to exceed 4 grams/day. ALPRAZolam (XANAX) tablet 0.5 mg 0014 (Given - Provider: Larisa Frey, NATHAN) 0.5 mg, Oral, AT BEDTIME PRN, anxiety, S tarting Mon02/17/20 at 2232, Avoid taking with grapefruit juice bisacodyl (DULCOLAX) Suppository 10 mg 10 mg, Rectal, DAILY PRN, constipation, Starting Mon02/17/20 at 2138, Hold for loose stools. This is the third step of a three step constipation treatment. Hold for loose stools. guaiFENesin (ROBITUSSIN) 20 mg/mL solution 10 mL 10 mL, Oral, EVERY 4 HOURS PRN, other, s ecretion expectorant, Starting Mon02/17/20 at 2137 HYDROmorphone (PF) (DILAUDID) injection 0.3-0.5 mg 0104 (Given - Provider: Stacia Garcia RN - Comment: cabinet override by stacia garcia, given by roxy jones)0126 (Canceled Entry - Provider: Stacia Garcia RN - Comment: given under prn order by roxy pardo 0.3-0.5 mg, Intravenous, EVERY 3 HOURS P RN, moderate to severe pain, Starting Mon02/18/20 at 0053, For ordered IV doses 0.1-4 mg give IV Push undiluted. Administer each 2mg over 2-5 minutes. es, cabinet over ride by stacia garcia)0819 (Given - Provider: Latha Maldonado RN - Comment: pulled by Rosie lange and gave by felicita)1147 (Given - Provider: Latha Maldonado RN)1713 (Given - Provider: Melani Last RN) 2055 (Given - Provider: Larisa Frey, NATHAN) hydrOXYzine (ATARAX) tablet 25-50 mg 25-50 mg, Oral, EVERY 6 HOURS PRN, pain, Starting Mon02/17/20 at 2231 ibuprofen (ADVIL/MOTRIN) tablet 400 mg 400 mg, Oral, EVERY 6 HOURS PRN, moderate pain, Starting 02/16 at 2231 ketorolac (TORADOL) injection 30 mg 0149 (Given - Provider: Roxy Jones RN)1539 (Given - Provider: Melani Last RN) 0217 (Given - Provider: Larisa Frey, NATHAN)0808 (z Missed (do not use) - Provider: Merary Pierre RN - Reason: Other - Comment: pt decided not at this time)1044 (Given - Provider: Merary Pierre, NATHAN) 30 mg, Intravenous, EVERY 6 HOURS PRN, m oderate to severe pain, Starting Mon02/18/20 at 0140, For 5 days, Do not give within 6 hours of Ibuprofen Can cause pain on injection. If ordered intravenously (IV ) : administer through a running mainten ance fluid over 1 minute followed by a flush. If patient complains of pain on injection, may dilute 15-30 mg in 5 mL and push over 1 to 2 minutes. lidocaine (LMX4) cream Topical, EVERY 1 HOUR PRN, pain, with VA D insertion or accessing implanted port., Starting Mon02/17/20 at 2137, Do NOT give if patient has a history of allergy to any local anesthetic or any noemí prod uct. Apply at least 30 minutes prior to VAD insertion or port access. In divided doses as needed for size of site for insertion with MAX Dose: 2.5 g (?? of 5 g tube) lidocaine 1 % 0.1-1 mL 0.1-1 mL, Other, EVERY 1 HOUR PRN, mild pain with VAD insertion., Starting Mon02/17/20 at 2137, Do NOT give if patient has a history of allergy to any local anesthetic or any noemí product. MAX dose 1 mL subcutaneous OR intradermal in divided doses as needed for VA D insertion. melatonin tablet 1 mg 1 mg, Oral, AT BEDTIME PRN, sleep, Start ing Mon02/17/20 at 2137, Do not give unless at least 6 hours of uninterrupted sleep is expected. menthol (ICY HOT) 5 % patch 1 patch(Linked Group 1) 1 patch, Topical, EVERY 8 HOURS PRN, mus amanda soreness, Administer over 8 Hours, Starting Mon02/17/20 at 2232, Apply to Skin. Remove 'old patch' and chart on Medication Patch Removal order when new patch i s applied. Avoid placing heating pad ove r the patch. Reminder: Remove previous patch before applying new patch. morphine (PF) injection 4 mg (COMPLETED) 1624 (Given - Provider: Brigitte De Luna, NATHAN)1650 (Given - Provider: Brigitte De Luna, NATHAN)2205 (Given - Provider: Lionel Osborne RN) 4 mg, Intravenous, EVERY 15 MIN PRN, oth er, pain control or improvement in physical function. Hold dose for analgesic side effects., Starting Mon02/17/20 at 1611, For 3 doses, Notify the provider to asse ss for uncontrolled pain or analgesic si de effects. Hold while on IV [employer] or with regular IV opioid dosing. For ordered IV doses 0.1-15 mg give IV Push undiluted over 4-5 minutes. naloxone (NARCAN) injection 0.1-0.4 mg 0.1-0.4 mg, Intravenous, EVERY 2 MIN PRN , opioid reversal, Starting Mon02/17/20 at 2137, For respiratory rate LESS than or EQUAL to 8. Partial reversal dose: 0.1 mg titrated q 2 minutes for Analgesia Miguel e Effects Monitoring Sedation Level of 3 (frequently drowsy, arousable, drifts to sleep during conversation).Full reversal dose: 0.4 mg bolus for Analgesia Side Effects Monitoring Sedation Level of 4 (s omnolent, minimal or no response to stim ulation). For ordered IV doses 0.1-2mg give IVP. Give each 0.4mg over 15 seconds in emergency situations. For non- emergent situations further dilute in 9mL of NS to facilitate titration of response. nitroGLYcerin (NITROSTAT) sublingual tablet 0.4 mg 0.4 mg, Sublingual, EVERY 5 MIN PRN, dionna st pain, Starting Mon02/17/20 at 2137, Maximum 3 doses in 15 minutes. Notify provider if no relief after 3 doses. IF patient has received sildenafil (VIAGRA/REVATI O), avanafil (STENDRA) or vardenafil (LE VITRA/STAXYN) within the last 24 hours, OR tadalafil (CIALIS/ADCIRCA) within the last 48 hours inform provider. If patient is still having acute angina requiring treatment, an alternative treatment opti on may be used such as: IV beta-cresencio [2.5 mg - 5 mg metoprolol (LOPRESSOR)] if ordered by a provider. ondansetron (ZOFRAN) injection 4 mg(Linked Group 2) 2054 (Given - Provider: Larisa Frey RN) 4 mg, Intravenous, EVERY 6 HOURS PRN, na usea, vomiting, Administer over 2-5 Minutes, Starting Mon02/17/20 at 2138, This is Step 1 of nausea and vomiting management. If nausea not resolved in 15 minutes, go to Step 2 prochlorperazine (COMPAZINE ). Irritant. For ordered IV doses 0.1-4 mg, give IV Push undiluted over 2-5 minutes. ondansetron (ZOFRAN-ODT) ODT tab 4 mg(Linked Group 2) 2054 (See Alternative - Provider: Larisa Frey, RN) 4 mg, Oral, EVERY 6 HOURS PRN, nausea, v omiting, Starting 02/17/20 at 2138, This is Step 1 of nausea and vomiting management. If nausea not resolved in 15 minutes, go to Step 2 prochlorperazine (MARTY ZINE). Do not push through foil backing. Peel back foil and gently remove. Place on tongue immediately. Administration with liquid unnecessary With dry hands, peel back foil backing and gently remove ta blet. Do not push oral disintegrating ta blet through foil backing. Administer immediately on tongue and oral disintegrating tablet dissolves in seconds, then swallow with saliva. Liquid not required. oxyCODONE (ROXICODONE) tablet 5 mg 2314 (Given - Provider: Arash Osborne RN) 0805 (Given - Provider: Latha Maldonado, NATHAN)1407 (Given - Provider: Latha Maldonado, NATHAN)1842 (Given - Provider: Melani Last, NATHAN) 0014 (Given - Provider: Larisa Frey, NATHAN) 5 mg, Oral, EVERY 4 HOURS PRN, moderate to severe pain, Starting 02/17/20 at 2232 polyethylene glycol (MIRALAX) Packet 17 g 17 g, Oral, DAILY PRN, constipation, Sta rting 02/17/20 at 2138, Give in 8oz of water, juice, or soda. Hold for loose stools. This is the second step of a three step constipation treatment. 1 Packet = 17 grams. Mix each gram with at least 1/ 2 ounce (15 mL) of water - 8 ounces for 17 g dose, 4 ounces for 8.5 g dose, 2 ounces for 4 g dose. Follow with the same volume of water. Hold for loose stools. potassium chloride (KLOR-CON) Packet 20-40 mEq 20-40 mEq, Oral or Feeding Tube, EVERY 2 HOURS PRN, potassium supplementation, Starting Mon02/19/20 at 0815, Use if unable to tolerate tablets. If Serum K+ 3.0- 3.3, dose = 60 mEq po total dose (40 mEq x1 followed in 2 hours by 20 mEq x1). Rech harvey K+ level 4 hours after dose and the next AM. If Serum K+ 2.5-2.9, dose = 80 mEq po total dose (40 mEq Q2H x2). Recheck K+ level 4 hours after dose and the nex t AM. If Serum K+ less than 2.5, See IV order. Dissolve packet contents in 4-8 ounces of cold water or juice. potassium chloride 10 mEq in 100 mL intermittent infusion wi th 10 mg lidocaine 10 mEq, Intravenous, Administer over 1 H ours, EVERY 1 HOUR PRN, potassium supplementation, Starting Mon02/19/20 at 0815, Infuse via PERIPHERAL LINE. Use potassium with lidocaine for pain with peripheral administration. If Serum K+ 3.0-3.3, dos e = 10 mEq/hr x4 doses (40 mEq IV total dose). Recheck K+ level 2 hours after dose and the next AM. If Serum K+ less than 3.0, dose = 10 mEq/hr x6 doses (60 mEq I V total dose). Recheck K+ level 2 hours after dose and the next AM. potassium chloride 10 mEq in 100 mL ster ile water intermittent infusion (premix) 10 mEq, Intravenous, Administer over 60 Minutes, at 100 mL/hr, EVERY 1 HOUR PRN, potassium supplementation, Starting Mon02/19/20 at 0815, Infuse via PERIPHERAL LINE or CENTRAL LINE. Use for central line replacement if patient weight less than 65 kg, if patient is on TPN with high potassium content or if unit does not stock 20 mEq bags. If Serum K+ 3.0-3.3, dose = 10 mEq/hr x4 doses (40 mEq IV total dos e). Recheck K+ level 2 hours after dose and the next AM. If Serum K+ less than 3.0, dose = 10 mEq/hr x6 doses (60 mEq IV total dose). Recheck K+ level 2 hours after dose and the next AM. potassium chloride 20 mEq in 50 mL intermittent infusion 20 mEq, Intravenous, EVERY 1 HOUR PRN, p otassium supplementation, Starting Mon02/19/20 at 0815, Infuse via CENTRAL LINE Only. May need EKG if less than 65 kg or on TPN - Max rate is 0.3 mEq/kg/hr for pat ients not on EKG monitoring. If Serum K+ 3.0-3.3, dose = 20 mEq/hr x2 doses (40 mEq IV total dose). Recheck K+ level 2 hours after dose and the next AM. If Serum K+ less than 3.0, dose = 20 mEq/hr x3 do ses (60 mEq IV total dose). Recheck K+ l evel 2 hours after dose and the next AM. potassium chloride ER (KLOR-CON M) CR tablet 20-40 mEq 0902 (Given - Provider: Carin Brunner LPN)1114 (Given - Provider: Merary Pierre RN - Comment: 40 meq given, need 20 meq to completer protocol) 20-40 mEq, Oral, EVERY 2 HOURS PRN, pota ssium supplementation, Starting Mon02/19/20 at 0815, Use if able to take PO. If [...] 2.5, See IV order. DO NOT CRUSH senna-docusate (SENOKOT-S/PERICOLACE) 8. 6-50 MG per tablet 1 tablet(Linked Group 3) 1 tablet, Oral, 2 TIMES DAILY PRN, const ipation, Starting 02/17/20 at 2138, If no bowel movement in 24 hours, increase to 2 tablets PO. Hold for loose stools. This is the first step of a three step constipation treatment. Hold for loose stools. senna-docusate (SENOKOT-S/PERICOLACE) 8. 6-50 MG per tablet 2 tablet(Linked Group 3) 2 tablet, Oral, 2 TIMES DAILY PRN, const ipation, Starting 02/17/20 at 2138, Hold for loose stools. This is the first step of a three step constipation treatment. Hold for loose stools. sodium chloride (PF) 0.9% PF flush 3 mL 0105 (Given - Provider: Roxy Jones RN) 1045 (Canceled Entry - Provider: Juliocesar Pierre, RN - Comment: w/ iv med)1046 (Given - Provider: Merary Pierre, NATHAN) 3 mL, Intracatheter, EVERY 1 MIN PRN, li pete flush, for peripheral IV flush post IV meds, Starting Mon02/17/20 at 2137 Linked Groups Order Group 1: menthol (ICY HOT) 5 % patch 1 patchJump to med 1 patch, Topical, EVERY 8 HOURS PRN, mus amanda soreness, Administer over 8 Hours, Starting Mon02/17/20 at 2232
Apply to Skin. Remove 'old patch' and chart on Medi cation Patch Removal order when new patc h is applied. Avoid placing heating pad over the patch. Reminder: Remove previous patch before applying new patch.
And menthol (ICY HOT) Patch in PlaceJump to med First dose on Mon02/17/20 at 2245
Jennifer t every shift, confirming that patch is still in place on patient (no barcode scan needed). See patch order for dose information.
Group 2: ondansetron (ZOFRAN-ODT) ODT tab 4 mgJump to med 4 mg, Oral, EVERY 6 HOURS PRN, nausea, v omiting, Starting Mon02/17/20 at 2138
This is Step 1 of nausea and vomiting management. If nausea not resolved in 15 minutes, go to Zack p 2 prochlorperazine (COMPAZINE). Do not push through foil backing. Peel back foil and gently remove. Place on tongue immediately. Administration with liquid unnecessary With dry hands, peel ba ck foil backing and gently remove tablet . Do not push oral disintegrating tablet through foil backing. Administer immediately on tongue and oral disintegrating tablet dissolves in seconds, then swallow with saliva. Liquid not required.
Or ondansetron (ZOFRAN) injection 4 mgJump to med 4 mg, Intravenous, EVERY 6 HOURS PRN, na usea, vomiting, Administer over 2-5 Minutes, Starting 02/17/20 at 2138
This is Step 1 of nausea and vomiting management. If nausea n ot resolved in 15 minutes, go to Step 2 prochlorperazine (COMPAZINE). Irritant. For ordered IV doses 0.1-4 mg, give IV Push undiluted over 2-5 minutes.
Group 3: senna-docusate (SENOKOT-S/PERICOLACE) 8.6-50 MG per tablet 1 tabletJump to med 1 tablet, Oral, 2 TIMES DAILY PRN, const ipation, Starting 02/17/20 at 2138
If no bowel movement in 24 hours, increase to 2 tablets PO. Hold for loose stools. This is the first step of a three step consti pation treatment. Hold for loose stools.
Or senna-docusate (SENOKOT-S/PERICOLACE) 8.6-50 MG per tablet 2 tabletJump to med 2 tablet, Oral, 2 TIMES DAILY PRN, const ipation, Starting 02/17/20 at 2138
Hold for loose stools. This is the first step of a three step constipation treatment. Hold for loose stools.
documented in this encounter Additional Health Concerns Infection Onset Date Last Indicated Resolved Time Rule Out COVID-19 02/17/2020 02/17/2020 02/18/2020 10: 05 AM CDT documented as of this encounter Care Teams Shoemaker Apprentice Relationship Specialty Start Date End Date Clinic, Negin [facility] Negin PCP - General 12/30/17 [address] [place] [address] documented as of this encounter
--- OUTSIDE RECORDS SUMMARY | 2022-08-31 15:01 | XMS_ITS | Encounter Summary ---
:1970 Author Organization [place] Address [address] [place] [id number] Care Team Providers Name Role Phone [facility], [facility] Primary Care Provider [phone] Encounter Details Date Type Department Care Team Description 02/17/2020 Travel Social History Tobacco Use Types Packs/Day [...] Diagnoses Not on filedocumented in this encounter Additional Health Concerns Infection Onset Date Last Indicated Resolved Time Rule Out COVID-19 02/17/2020 02/17/2020 02/18/2020 10: 05 AM CDT documented as of this encounter Care Teams Motor Patrol Operator Relationship Specialty Start Date End Date Clinic, [facility] PCP - General 12/30/17 [address] [facility] [place] [address] documented as of this encounter
--- OUTSIDE RECORDS SUMMARY | 2022-08-31 15:01 | XMS_ITS | Encounter Summary ---
:1970 Author Organization [place] Address [address] [facility] [place] [address] Care Team Providers Name Role Phone Clinic, Negin Hough [facility] Primary Care Provider [phone] Reason for Visit Reason Comments Arm Pain Encounter Details Date Type Department Care Team Description 07/05/2019 Emergency [facility] Viry Voss MD Traumatic hematoma of [facility] Emergency Dep t [address] [facility] left forearm, initial [address], [place] [phone] Social History Tobacco Use Types Packs/Day Years Used Date Smoking Tobacco: Never Smokeless Tobacco: Never Sex Assigned at Date Recorded Not on file documented as of this encounter Last Filed Vital Signs Vital Sign Reading Time Taken Comments Blood Pressure 117/75 07/05/2019 2:00 PM CDT Pulse - - Temperature 36.8 ??C (98.3 ??F) 07/05/2019 2:00 PM CDT Respiratory Rate 16 07/05/2019 2:00 PM CDT Oxygen Saturation 94% 07/05/2019 2:00 PM CDT Inhaled Oxygen Concentration - - Weight - - Height - - Body Mass Index - - documented in this encounter Discharge Instructions AttachmentsThe following attachments cannot be sent through Care Everywhere.Soft Tissue Contusion (Swiss)documented in this encounter Medications at Time of [...] mg by mouth 0 tablet At Bedtime buPROPion (WELLBUTRIN Take 300 mg by mouth [...] At Bedtime documented as of this encounter ED Notes Glenn Grey, NATHAN - 07/05/2019 2:45 PM CDT Now comfortable,siitiing in chair after returning from Imaging. Alert & Oriented Meme Calhoun RN - 07/05/2019 1:58 PM CDT Pt here with c/o L arm pain after getting arm caught in door. Pt R handed. Hematoma to L arm. Not onblood thinners, No LOC, neck or back pain. CMS intact. Tesha Voss MD - 07/05/2019 1:55 PM CDT History Chief Complaint: Arm Pain HPI Rajesh Caba is a 48 year old female who presents to the emergency department today for evaluation of arm pain. The patient reports 30 minutes prior to arrival she was walking out of [employer] when an employee came through a swinging door, causing her left arm to be caught between the door andhit her left hand. She is right handed. There was no loss of consciousness, neck pain, and isn't on blood thinners. Due to these symptoms she presented to the emergency department today. She denies numbness or tingling. Allergies: No Known Drug Allergies Medications: Albuterol Xanax Abilify Wellbutrin Klonopin Flovent Ritalin Remeron Ambien Past Medical History: Depression Anxiety ADHD Polysubstance dependence Low back pain Radiculopathy Insomnia Past Surgical History: Hernia repair History of Appendectomy Lung Surgery Family History: Brain aneurysm Cancer Diabetes Kidney/bladder disease Stroke Social History: The patient was accompanied to the ED by herself. Smoking Status: Never Smoker Smokeless Tobacco: Never Used Alcohol Use: no Marital Status: [2] Review of Systems Musculoskeletal: Positive for myalgias (left arm). Neurological: Negative for numbness. All other systems reviewed and are negative. Physical Exam First Vitals: BP: 117/75 Heart Rate: 97 Temp: 98.3 ??F (36.8 ??C) Resp: 16 SpO2: 94 % Physical Exam General: Patient is alert and interactive when I enter the room Head: The scalp, face, and head appear normal Eyes: Conjunctivae are normal ENT: The nose is normal Pinnae are normal External acoustic canals are normal Neck: Trachea midline CV: Pulses are normal. Resp: No respiratory distress Abdomen: Soft, non-tender, non-distended Musc: Normal muscular tone No major joint effusions No asymmetric leg swelling Left lateral forearm hematoma with underlying bone tenderness Distal sensation intact Good ROM of wrist No lacerations No elbow tenderness Skin: No rash or lesions noted Neuro: Speech is normal and fluent. Face is symmetric. Moving all extremities well. Psych: Awake. Alert. Normal affect. Appropriate interactions. Emergency Department Course Imaging: Radiology findings were communicated with the patient who voiced understanding of the findings. XR Radius/Ulna, PA & LAT, left: Impression: 1. No fracture or joint malalignment in the left forearm. Soft tissue swelling over the dorsal aspect of the mid forearm. No radiopaque foreign body present . reading per radiology. Emergency Department Course: Nursing notes and vitals reviewed. 1408: I performed an exam of the patient as documented above. The patient was sent for a Radius/Ulna XR while in the emergency department, results above. 1453 Patient rechecked and updated. Findings and plan explained to the Patient. Patient discharged home with instructions regarding supportive care, medications, and reasons to return. The importance of close follow-up was reviewed. I personally reviewed the imaging results with the Patient and answered all related questions prior to discharge. Impression & Plan Medical Decision Making: Rajesh Caba is a 48 year old female who presents for evaluation of forearm pain after getting her left arm caught in a door. There is not a fracture on xray. CMS is intact distally in the extremity. The patients head to toe trauma exam is otherwise normal at this time and no further trauma workup is needed. Likely a secondary to a hematoma. Discussed ice and elevation. Patient's questions were answered prior to discharge, and return precautions were given. Patient discharged in stable condition. Diagnosis: ICD-10-CM 1. Traumatic hematoma of left forearm, initial encounter S50.12XA Disposition: Discharged to home. Scribe Disclosure: I, Corine Belcher, am serving as a scribe at 2:11 PM on 07/05/2019 to document services personally performed by Tesha Voss MD based on my observations and the provider's statements to me. Corine Belcher 07/05/2019 [facility] EM[facility] Tesha Voss MD 07/06/19 1607 documented in this encounter Plan of Treatment Not on filedocumented as of this encounter Procedures Procedure Name Priority Date/Time Associated Diagnosis Comme nts XR FOREARM LEFT 2 STAT 07/05/2019 2:40 PM Resu lts for this VIEWS CDT procedure are i n the results section. documented in this encounter Results Radius/Ulna XR, PA &LAT, left (07/05/2019 2:40 PM CDT) Anatomical Region Laterality Modality Forearm, Left Forearm Left Computed Radiograp hy Specimen (Source) Anatomical Location Collection Method / Collectio n Time Received Time / Laterality Volume Impressions 07/05/2019 2:42 PM CDT Impression: 1. No fracture or joint malalignment in the left forearm. Soft tissue swelling over the dorsal aspect of the m id forearm. No radiopaque foreign body present . ESSIE MITCHELL MD Narrative 07/05/2019 2:42 PM CDT Examination: ??XR FOREARM LT 2 VW Date: ??07/05/2019 2:40 PM Clinical Information: Forearm pain after trauma. Additional Information: none Comparison: none Procedure Note Essie Mitchell MD - 9 Examination: XR FOREARM LT 2 VW Date: 07/05/2019 2:40 PM Clinical Information: Forearm pain after trauma. Additional Information: none Comparison: none Impression: 1. No fracture or joint malalignment in the left forearm. Soft tissue swelling over the dorsal aspect of the m id forearm. No radiopaque foreign body present . ESSIE MITCHELL MD Tesha Voss MD IMG DIAGNOSTIC IMAGING ORDER RENA documented in this encounter Visit Diagnoses Diagnosis Traumatic hematoma of left forearm, init ial encounter documented in this encounter Care Teams Clipper Operator Relationship Specialty Start Date End Date Clinic, [facility] PCP - General 12/30/17 [address] [facility] [place] [address] documented as of this encounter
--- OUTSIDE RECORDS SUMMARY | 2022-08-31 15:02 | XMS_ITS | Encounter Summary ---
:1970 Author Organization [facility] Address [address] [place] [address]. [place] [address] Care Team Providers Name Role Phone Unavailable Primary Care Provider Unavailable Encounter Details Date Type Department Care Team Description 05/28/[address] [facility] Paula Rajput, Hospital Results [address] [place] [id number] Social History Tobacco Use Types Packs/Day Years Used Date Smoking Tobacco: Never Assessed Sex Assigned at Date Recorded Not on file documented as of this encounter Procedure Notes Paula Rajput - 05/31/2010 7:44 AM CDTAssociated Order(s): CONSULT GENETICS FINAL May 30, 2010 Meenu Layton NP [facility] [place], [place] Dear Ms. Layton: Your patient, Rajesh Stevens, was seen at the [facility] on05/28/2010. She came to clinic for genetic consultation and first trimester screening due to advanced maternal age in . This letter will summarize our 40 minute consultation. HISTORY: G 7 P 3 LMP: 02/11/2010 Age: 39 EDC (LMP): 11/18/2010 Age at Delivery: 40 EDC (U/S): 12/07/2010 by 6wk u/s Gestational Age: 12 weeks, 3 days - Rajesh reports taking vitamins. - She also reports using some medicines previously for anxiety but reports quitting use of those medicines after identifying her . She reports that she is okay most of the time off of thesemedicines. We did talk about that it is important for her to let her health care providers know should she feel like she is not doing okay off of her medicines. - Rajesh reports that she has a cat at home but she does avoid the litter box. RISK ASSESSMENT FOR CHROMOSOME CONDITIONS: - We discussed the association between maternal age and an increasing risk for chromosome conditions. All couples, regardless of age, face a 3-4% risk of having a baby with mental retardation or a significant health problem. We discussed specific features of chromosome conditions associated with maternal age including Down syndrome, trisomy 13, trisomy 18, and sex chromosome trisomies. - At age 40 at delivery, the risk of having a baby with a chromosome abnormality at is approximately 1:65 or about 1.5%. TESTING OPTIONS: - We discussed the difference between screening tests and diagnostic tests. - First trimester screening provides revised risk assessments for three specific conditions: Down syndrome, trisomy 13 and trisomy 18. Risk assessments are based upon maternal age, nuchal translucency, maternal serum VINNY-A and free beta hCG. If an individual's risk exceeds a pre-defined threshold, the screen is reported as positive. - Modified sequential screening can integrate results of first and second trimester screening into a unified risk assessment. Patients can elect to have second trimester blood work drawn beginning at 15 weeks gestation and integrated with their first trimester results. This additional blood work modestly improves the performance of the screening. If patients wish to have this modified sequential screen, arrangements must be made through the [facility] to ensure that all blood work is sent to the same facility. Patients who elect to forgo modified sequential screening should still be offered maternal serum AFP screening for neural tube defects in the second trimester. - Chorionic villus sampling (CVS) is an invasive procedure that can diagnose chromosome conditions with 99% accuracy. In experienced hands, it is believed that CVS is associated with approximately a 1/200 risk for loss. Interpretation of results may be complicated by the presence of maternal cell contamination, mosaicism or inconclusive results. CVS does not test for all causes of mental retardation or defects. - Amniocentesis is an invasive test that can diagnose chromosome abnormalities with greater than 99% accuracy. In addition, amniotic fluid alpha fetoprotein levels will be measured to screen for neural tube and abdominal wall defects. There is approximately a 1:300 to 1:500 risk of miscarriage associated with amniocentesis. Amniocentesis does not test for all causes of mental retardation or defects. - Comprehensive (Level II) ultrasound is a detailed ultrasound offered beginning at 18 weeks gestation to screen for anatomic variations seen in some babies with chromosome conditions. Level II ultrasound cannot definitively diagnose or exclude the presence of any chromosome condition. About 50-60% of babies with Down syndrome and about 80-90% of babies with trisomy 18 or trisomy 13 are expected to have unusual findings on a Level II ultrasound. FAMILY HISTORY: - Rajesh reports that she has a maternal half-sister that had a heart attack at age 26; she reports that this heart attack was thought to possibly be related oral contraceptive use in combination with some substance abuse. She knows of no other early onset heart disease in the family or any genetic problem being diagnosed in her sister. - Rajesh does report a family history of cancer, including: an early onset gynecological cancer inher maternal grandmother, a brain tumor in her maternal grandfather, a history of colon cancer in her father at age 49, and a history of stomach cancer in her paternal grandmother. She reports that there is a history of other later onset cancers in her paternal cousins, including prostate cancer, stomach cancers, and uterine cancers. We did talk about that some families do have a hereditary predisposition that seems to increase therisk of certain cancers in their family. We did talk about the availability of family cancer clinicsfor individuals who want to get more information about their family history and about screening and surveillance guidelines based on this history. We did talk about that it is generally recommended individuals begin screening colonoscopy around 10 years earlier than their earliest onset of colon cancer in the family, if they have a family history of early onset colon cancer. She does report that she has already had some colonoscopies, which shereports were normal other than the finding of one hyperplastic polyp. - Rajesh's reports that he has a brother who has 2 children with developmental delay, which involves speech issues. He reports that at least 1 of these children has also a diagnosis of sensory integration disorder. He reports that his brother also had a baby that was stillborn, but it is thought this may have been related to an umbilical cord accident. Rajesh's also reports a sibling that was stillborn and again, he felt this may have been an umbilical cord accident but again the exact details are not well known to him. He reports he is not aware of a specific genetic diagnosis being made in any of these individuals. We talked about that it is hard to be specific about risks to other family members without knowing whether or not there is a specific genetic cause for the developmental delays and/or stillbirths in hisfamily. - Rajesh's also does report a family history of malignant hypothermia. He does not know exactly who in the family has malignant hypothermia. He was aware that this is a hereditary condition that can cause life-threatening complications from anesthesia. He reports he is aware of this and thathe and his family members have been informing their doctors about this family history. - Rajesh's also reports that his father has an irregular heartbeat, for which he has had apacemaker/defibrillator placed. He reports there is no other known family history of heart arrhythmia. He reports he is not aware of a specific genetic cause being identified for that heart arrhythmia. ETHNIC BACKGROUND: - Both Rajesh and her are of ancestry. We briefly talked about that cystic fibrosis is a genetic condition that occurs with increased frequency in individuals of ancestry, and so carrier screening for this condition is usually offered to individuals from that ethnic background. In addition, cystic fibrosis is currently screened for as part of the [place] Screen. PLAN: 1.) Your patient had a first trimester screen today. We will contact her with results when they areavailable and fax a copy to your office. 2.) Your patient may choose to do additional maternal serum screening in the second trimester (AFP only or modified sequential screening). 3.) An 18-20 week comprehensive ultrasound is recommended as additional screening for all women of advanced maternal age who decline invasive testing. Thank you again for the opportunity to meet with your patient. If you have any further questions, please do not hesitate to contact me at or . Best Regards, Shanon Rajput MS, [facility] Genetic Counselor Sincerely, Electronically signed on 06/10/2010 10:50 by PAULA RAJPUT MS, [facility] MT: [id number] Name: RAJESH STEVENS MRN: [id number] Account: [id number] : 1970 Visit Date: 05/28/2010 Document: [id number] documented in this encounter Plan of Treatment Not on filedocumented as of this encounter Procedures Procedure Name Priority Date/Time Associated Comments Diagnosis ADULT GENETICS & 05/30/2010 7:37 PM Resul ts for this METABOLISM REFERRAL CDT procedur e are in the results section. documented in this encounter Results CONSULT GENETICS (05/30/2010 7:37 PM CDT) Transcriptions Paula Rajput - 05/31/2010 7:44 AM CDT FINAL May 30, 2010 Meenu Layton NP [facility] [place] Dear Ms. Layton: Your patient, Rajesh Stevens, was s een at the [facility] on 05/28/2010. She came to clinic for genetic consultation and first trimester screening due to advanced maternal age in . This letter w ill summarize our 40 minute consultation. HISTORY: G 7 P 3 LMP: 02/11/2010 Age: 39 EDC (LMP): 11/18/2010 Age at Delivery: 40 EDC (U/S): 12/08/19 11 by 6wk u/s Gestational Age: 12 weeks, 3 days - Rajesh reports taking vitam ins. - She also reports using some medicines previously for anxiety but reports quitting use of those medicines after identifying her . She reports that she is okay most of the time off of these medicines. We did talk about that it is important for her to let her health care providers know should she feel like she is not doing okay off of her medicines. - Rajesh reports that she has a cat at home but she does avoid the litter box. RISK ASSESSMENT FOR CHROMOSOME CONDITIO NS: - We discussed the association between maternal age and an increasing risk for chromosome conditions. All couples, regardless of age, face a 3-4% risk of having a baby with mental retardation or a significant health problem. We discussed specific features of chromosome conditions associated with maternal age including Down syndrome, trisomy 13, trisomy 18, and sex chromosome trisomies. - At age 40 at delivery, the risk of avelar ving a baby with a chromosome abnormality at is approximately 1:65 or about 1.5%. TESTING OPTIONS: - We discussed the difference between s creening tests and diagnostic tests. - First trimester screening provides re vised risk assessments for three specific conditions: Down syndrome, trisomy 13 and trisomy 18. Risk assessments are based upon maternal age, nuchal translucency, maternal serum VINNY-A and free beta hCG. If an in dividual's risk exceeds a pre-defined threshold, the screen is reported as positive. - Modified sequential screening can int egrate results of first and second trimester screening into a unified risk assessment. Patients can elect to have second trimester blood work drawn beginning at 15 weeks gestation and integrated with their first trimester re sults. This additional blood work modestly improves the performance of the screening. If patients wish to have this modified sequential screen, arrangements must be made through the [facility] to en sure that all blood work is sent to the same facility. Patients who elect to forgo modified sequential screening should still be offered maternal serum AFP screening for neural tube defects in the second trimester. - Chorionic villus sampling (CVS) is an invasive procedure that can diagnose chromosome conditions with 99% accuracy. In experienced hands, it is believed that CVS is associated with approximately a 1/200 risk for loss. Interpretation of result s may be complicated by the presence of maternal cell contamination, mosaicism or inconclusive results. CVS does not test for all causes of mental retardation or defects. - Amniocentesis is an invasive test pravin t can diagnose chromosome abnormalities with greater than 99% accuracy. In addition, amniotic fluid alpha fetoprotein levels will be measured to screen for neural tube and abdominal wall defects. There is approxi mately a 1:300 to 1:500 risk of miscarriage associated with amniocentesis. Amniocentesis does not test for all causes of mental retardation or defects. - Comprehensive (Level II) ultrasound i s a detailed ultrasound offered beginning at 18 weeks gestation to screen for anatomic variations seen in some babies with chromosome conditions. Level II ultrasound cannot definitively diagnose or exclude the pre sence of any chromosome condition. About 50-60% of babies with Down syndrome and about 80-90% of babies with trisomy 18 or trisomy 13 are expected to have unusual findings on a Level II ultrasound. FAMILY HISTORY: - Rajesh reports that she has a matern al half-sister that had a heart attack at age 26; she reports that this heart attack was thought to possibly be related oral contraceptive use in combination with some substance abuse. She knows of no other e priti onset heart disease in the family or any genetic problem being diagnosed in her sister. - Rajesh does report a family history of cancer, including: an early onset gynecological cancer in her maternal grandmother, a brain tumor in her maternal grandfather, a history of colon cancer in her father at age 49, and a history of stomach cancer in h er paternal grandmother. She reports that there is a history of other later onset cancers in her paternal cousins, including prostate cancer, stomach cancers, and uterine cancers. We did talk about that some families do have a hereditary predisposition that seems to increase the risk of certain cancers in their family. We did talk about the availability of family cancer clinics for individuals who want to get more information about their family history and about screening and surveillance guidelines based on this history. We did talk about that it is generally recommended individuals begin screening colonoscopy around 10 years earlier than their earliest onset of colon cancer in the family, if they have a family history of early onset colon cancer. She does report that she h as already had some colonoscopies, which she reports were normal other than the finding of one hyperplastic polyp. - Rajesh's reports that he has a brother who has 2 children with developmental delay, which involves speech issues. He reports that at least 1 of these children has also a diagnosis of sensory integration disorder. He reports that his brother velia pino had a baby that was stillborn, but it is thought this may have been related to an umbilical cord accident. Rajesh's also reports a sibling that was stillborn and again, he felt this may have been an umb ilical cord accident but again the exact details are not well known to him. He reports he is not aware of a specifi c genetic diagnosis being made in any of these individuals. We talked about that it is hard to be specific about risks to other family members without knowing whether or not there is a specific genetic cause for the deve lopmental delays and/or stillbirths in his family. - Rajesh's also does report a family history of malignant hypothermia. He does not know exactly who in the family has malignant hypothermia. He was aware that this is a hereditary condition that can cause life-threatening complications fro lenore cleaning. He reports he is aware of this and that he and his family members have been informing their doctors about this family history. - Rajesh's also reports that mervat is father has an irregular heartbeat, for which he has had a pacemaker/defibrillator placed. He reports there is no other known family history of heart arrhythmia. He reports he is not aware of a specific [facility] systemic cause being identified for that heart arrhythmia. ETHNIC BACKGROUND: - Both Rajesh and her are of [place] ancestry. We briefly talked about that cystic fibrosis is a genetic condition that occurs with increased frequency in individuals of ancestry, and so carrier screening for this condition is usually offered to individuals from that ethnic background. In addition, cystic fibrosis is currently screened for as part of the [place] Screen. PLAN: 1.) Your patient had a first trimester screen today. We will contact her with results when they are available and fax a copy to your office. 2.) Your patient may choose to do addit ional maternal serum screening in the second trimester (AFP only or modified sequential screening). 3.) An 18-20 week comprehensive ultraso und is recommended as additional screening for all women of advanced maternal age who decline invasive testing. Thank you again for the opportunity to meet with your patient. If you have any further questions, please do not hesitate to contact me at or . Best Regards, Shanon Rajput MS, [facility] Genetic Counselor Sincerely, Electronically signed on 06/10/2010 10: 50 by PAULA RAJPUT MS, [facility] MT: [id number] Name: RAJESH STEVENS Account: [id number] : 1970 Visit Date: 05/28/2010 Document: [id number] Paula Rajput REFERRAL documented in this encounter Visit Diagnoses Not on filedocumented in this encounter
--- OUTSIDE RECORDS SUMMARY | 2022-08-31 15:02 | XMS_ITS | Encounter Summary ---
:1970 Author Organization [facility] Address [address] [place] [id number] Care Team Providers Name Role Phone Unavailable Primary Care Provider Unavailable Encounter Details Date Type Department Care Team Description 06/08/2006 Operative Report Bryce Louise MD (Privacy Specialist) [facility] [address] [place] [address] (Wo rk) Social History Tobacco Use Types Packs/Day Years Used Date Smoking Tobacco: Never Assessed Sex Assigned at Date Recorded Not on file documented as of this encounter Progress Notes Bryce Louise - 06/22/2006 9:23 AM CDT FINAL PATIENT IDENTIFICATION: Rajesh Stevens is a 35-year-old 5, para 2-0-2-2 female who is a40 weeks gestational age today by an estimated due date of today. The patient was admitted last night for an elective induction of labor due to a family social situation where the patient's father had been placed on life support in [place] and the patient would really like to be induced so that shecan be with her father as soon as possible. Therefore, the patient was admitted last night for Cervidil cervical ripening. Her cervix was fingertip and long. This morning amniotomy was performed at 9:30. The cervix was 2 cm, 50% effaced at a -2 station. Amniotomy was performed without complication, there was clear fluid. The patient was then started on penicillin for group B strep prophylaxis and Pitocin and augmentation with a maximum rate of 5 milliunits. She progressed through normal labor curve to complete dilatation at 13:25. SECOND STAGE: The patient began expulsive efforts and rapidly brought the vertex to and she delivered a vigorous female from a right occiput anterior presentation at 13:44. The mouth and nares were suctioned at the perineum. The shoulders and body delivered atraumatically. The cord was doubly clamped and then cut by the father of the baby. Time of delivery was 13:44. THIRD STAGE: The placenta delivered spontaneously with gentle cord traction at 13:47. It was intactwith a 3-vessel cord. Uterine bleeding was small and uterine tone was excellent. Intravenous Pitocinwas administered. The perineum was inspected and there was a second-degree midline vaginal laceration which was infiltrated with 1% plain Polocaine 10 cc and then repaired in the usual running fashion in layers with 3-0 Vicryl suture. There were no complications. condition is satisfactory for both mother and . Electronically signed on 06/22/2006 09:22 by BRYCE LOUISE MD MT: [id number] Name: RAJESH STEVENS Account: [id number] : 1970 Delivery Date: 06/08/2006 Document: [id number] documented in this encounter Plan of Treatment Not on filedocumented as of this encounter Visit Diagnoses Not on filedocumented in this encounter
--- OUTSIDE RECORDS SUMMARY | 2022-08-31 15:02 | XMS_ITS | Encounter Summary ---
:1970 Author Reason for Visit *ANNUAL EXAM 40 - 64 POSTMENOPAUSAL Routine annual examination Assessment and Plan Assessment Note Normal annual gynecologic examination. Maintained on Depo-Provera for contraception and cycle control. Due for bilateral scr eening mammogram. 1. Gynecologic examination ? test, urine 2. Contraception care management ? medroxyprogesterone 150 mg/mL intramu scular suspension Discussion Note PainI discussed with Rajesh her clinic al presentation and findings on examination. She is overall healthy Depo-Provera for contraception. She is in need of a bilateral screening mammogram as no previou s mammogram has been documented. Colonos copy is up-to-date and will be repeated in the next couple of years. Pap smear with cotesting is due in 2023. A bone density is recommended in the next 3 to 5 yea rs. All questions were answered to the p jonny's satisfaction she expressed understanding and agreement with the plan of care. - Encouraged breast self-awareness and m onthly breast exams. - Recommend mammogram annually - Encouraged regular exercise. - Discussed calcium, vitamin D, and weig ht bearing exercise for bone health. - Discussed osteoporosis screening guide lines. 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 - Reviewed current cervical cancer ashwin luo guidelines. PAP smear recommendations after age 65 without a history of cervical cancer or severe dysplasia within the last 20 years discussed. - Discussed indications to call or retur n in the menopausal period including post menopausal bleeding Patient educational handouts: No information available. Plan of Care Patient Instructions Return in 1 year for annual examination . Schedule bilateral screening mammogram, 3D. Discussed discontinuation of Depo-Head Of Acquisitions a in the not distant future. Indications to call or return were discussed and the briana brandt expressed understanding. Reminders Provider Appointments G_annual Exam on or around Nica Hardwick 08/22/2023 Lab Test, Urine 08/22/2022 [id number] Referral None recorded. ? ? Procedures None recorded. ? ? Surgeries None recorded. ? ? Imaging None recorded. ? ? Medications Name Start Date ? ? Accu-Chek Guide Glucose Meter ? Use as directed. Accu-Chek Guide test strips ? TEST 3 TIMES DAILY Accu-Chek Softclix Lancets ? TEST 3 TIMES DAILY alprazolam 0.5 mg tablet ? Take 1 Tablet (0.5 mg) by mouth daily a s needed for Anxiety. Replaces all previous alprazolam scripts aripiprazole 15 mg tablet ? Take 0.5 Tablets (7.5 mg) by mouth daily. aripiprazole 5 mg tablet ? Take 1 Tablet by mouth daily duloxetine 30 mg capsule,delayed release ? TAKE THREE CAPSULES BY MOUTH DAILY duloxetine 60 mg capsule,delayed release ? Take 2 Capsules (120 mg) by mouth daily. eszopiclone 2 mg tablet ? Take 1 Tablet (2 mg) by mouth at bedtime as needed fo r Other (for insomnia). Flovent HFA 110 mcg/actuation aerosol inhaler ? ipratropium 0.5 mg-albuterol 3 mg (2.5 mg base)/3 mL n ebulization soln ? Inhale 3 mL every 6 hours as needed for Wheezing. lisinopril 2.5 mg tablet ? Take 1 Tablet by mouth daily medroxyprogesterone 150 mg/mL intramuscular suspension ? Inject 1 mL every 3 months by intramuscular route. medroxyprogesterone 150 mg/mL intramuscular syringe ? Inject 1 mL every 3 months by intramuscular route. metformin ER 500 mg tablet,extended release 24 hr ? Take 4 Tablets by mouth every evening with a meal methylphenidate 20 mg tablet ? Take 1 Tablet (20 mg) by mouth three times a day. methylprednisolone 4 mg tablets in a dose pack ? TAKE BY MOUTH DIRECTED IN PACKAGE INSTRUCTIONS. montelukast 10 mg tablet ? Take 1 Tablet (10 mg) by mouth every ev ening. Will need an appointment for further refills. oxycodone-acetaminophen 5 mg-325 mg tablet ? TAKE ONE TABLET BY MOUTH EVERY SIX HOURS NEEDED FO R PAIN PreviDent 5000 Sensitive 1.1 %-5 % dental paste ? USE TO BRUSH TEETH. ProAir HFA 90 mcg/actuation aerosol inhaler ? Inhale 1-2 Puffs every 4 hours as neede d for Wheezing. Pharmacy may substitute albuterol HFA inhalers based on insurance rosuvastatin 10 mg tablet ? Take 1 Tablet by mouth daily Symbicort 160 mcg-4.5 mcg/actuation HFA aerosol inhale r ? INHALE TWO PUFFS BY MOUTH TWICE DAILY. RINSE MOUTH/GA RGLE AFTER USE topiramate 25 mg tablet ? TAKE ONE TABLET BY MOUTH TWICE DAILY topiramate 50 mg tablet ? take 1 tablet by mouth in the morning a nd 3 tablets in the late afternoon/evening UltiCare Pen Needle 32 gauge x 5/32 ? USE TO INJECT DAILY, EACH NEEDLE IS ONE TIME USE Victoza 3-Boom 0.6 mg/0.1 mL (18 mg/3 mL) subcutaneous pen injector ? INJECT 1.8 MG SUBCUTANEOUSLY DAILY Medications Administered Name Date ? ? medroxyprogesterone 150 mg/mL intramuscular suspensio n [id number]:00 Inject 1 mL every 3 months by intramuscular route. Vitals Height Weight BMI Blood Pressure 6 ft 257.2 lbs 34.9 kg/m2 126/82 mm[Hg] Results Lab Results Date Name Specimen Result Interpretation Description Value Range Status Address ? 08/22/2022 ? Result negative ? ? [id number]: Test, Urine UPT [address] [place] [address] Allergies Code Code System Name Reaction Severity Onset NKDA ? ? ? Problems Name Status Onset Date Source ? Family History of Malignant Neoplasm of Gastrointestinal Active 02/25/2010 History Tract Anxiety State Active ? History Depressive Disorder Active ? History Procedures Date Name Performed by ? ? Termination of Information not available Notes: 1999, 2004 ? Appendectomy Information not avai lable ? Hernia Repair Information not avai lable Notes: Thoracic Surgery-pneumo thorax Vaccine List Vaccine Type unknown 05/26/2010 Social History Tobacco Smoking Status Never Smoker What is your level of alcohol None consumption? Children's names/ Jajaswindermyn, Savannah, Venessa, Mei Which illicit or recreational Denies illicit substance drugs have you used? abuse Spouse/Partners Name John What is your level of caffeine Moderate Notes: 1c/day consumption? Do you use any illicit or N recreational drugs? What is your exercise level? 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 Family History Relation Problem Onset Age of Age Notes Father Benign neoplasm of colon (No N/A Col on Polyp, Benign Information) Father Benign essential (No N/A Hypertensio n hypertension Information) Father Family history of (No N/A Heart dise ase Cardiovascular disease Information) Father Family history of 40 N/A Cancer Col on: malignant neoplasm of Deceas ed gastrointestinal tract Father Family history of stroke (No N/A Str rené Information) Father Family history of (No N/A Diabetes diabetes mellitus Information) Father Diabetes mellitus 35 N/A (No Notes) Father Malignant tumor of colon 50 N/A (No Notes) Father Cerebrovascular accident (No N/A (No Notes) Information) Father Hypertensive disorder (No N/A (No No marilin) Information) Maternal Family history of (No N/A Cancer of Uterus Grandmother malignant neoplasm of Information) genital structure Maternal Family history of (No N/A Cancer of Ovary Grandmother malignant neoplasm of Information) ovary Brother Family history of mental (No N/A Dep ression disorder Information) Mother Family history of mental (No N/A Dep ression disorder Information) Sister Family history of mental (No N/A Dep ression disorder Information) Functional Status Unknown. Past Encounters Encounter Date Diagnosis Provider 08/22/2022 Gynecologic Examination; Nica Hardwick: [address] [place] [address] Contraception Care Management [address], [address], [place] [address], Ph. History of Present Illness Note: <div>Rajesh presents for office today for her annual gynecologic examination. She voices no specific issues or concerns. She continues to be maintained with Depo-Provera for contraception and cycle control. She is due for an injection. She is also due for a bilateral screening mammogram. She is up-to-date with colonoscopy but did have hyperplastic polyps. A repeat colonoscopy has been recommended. Her Pap smear was performed 1 year ago and was negative. Blood work is followed elsewhere as well. Harley is the [id number]-jrq of [facility]. </div> Review of Systems ? General Adult ROS Reported By: Patient Constitutional: Constitutional: no fever, no night sweats, no significant weight gain, no significant weight loss, no exercise intolerance Eyes: Eyes: no dry eyes, no irrita tion, no vision change ENMT: Ears: no difficulty hearing, no ear pain. Nose: no frequent nosebleeds, no nose/sinus pr oblems. Mouth/Throat: no sore throat, no bleeding gums, no snoring, no dry mouth, no mouth ulcers, no oral abnormalitie s, no teeth problems Cardiovascular: Cardiovascular: no chest nisa n, no chest pain on exertion, no shortness of breath when wal margaret, no shortness of breath when lying down, no palpitations, no known heart murmur, no leg swelling, no radiating pain Respiratory: Respiratory: no cough, no wh eezing, no shortness of breath, no coughing up blood Gastrointestinal: Gastrointestinal: no abdomin al pain, no vomiting, normal appetite, no diarrhea, not v omiting blood Genitourinary: Genitourinary: no incontinen ce, no difficulty urinating, no hematuria, no increased freq uency Musculoskeletal: Musculoskeletal: no muscle a ches, no muscle weakness, no arthralgias/joint pain, no b ack pain, no swelling in the extremities Integumentary: Skin: no abnormal mole, no j aundice, no rashes, no cyanosis Neurologic: Neurologic: no loss of consc iousness, no weakness, no numbness, no seizures, no di zziness, no headaches, no tingling Psychiatric: Psych: no depression, no sle ep disturbances, feeling safe in relationship, no alcohol abu se Endocrine: Endocrine: no fatigue Hematologic/Lymphatic: Hematologic/Lymphatic no swo llen glands, no bruising Allergic/Immunologic: Allergy/Immunologic: no runn y nose, no sinus pressure, no itching, no hives, no freque nt sneezing Physical Exam ? Annual Exam ([facility]) Reported By: Patient Constitutional: *General Appearance: healthy -appearing, well-nourished, well-developed Head: Head: normocephalic Neck: *Thyroid: no enlargement, no nodules, non-tender Lymph Nodes: *Palpation: normal Cardiovascular: *Auscultation: RRR, no murmu r. *Peripheral Vascular: no varicosities, no edema Lungs: *Respiratory Effort: no acce ssory muscle usage, no intercostal retractions. *Auscultation: clear to auscultation, no wheezing, no rales/crackles, no rhonch i. Inspection: normal, normal respiratory rate *Breast: Bilateral: no skin changes, nipple appearance: normal, no abnormal nipple secretions, no tenderness, no masses palpable. Right Breast: normal. Left B reast: normal Abdomen: *Inspection/Palpation/Auscul tation: non-distended, no tenderness, no rebound, no g uarding, soft, no hepatomegaly, no splenomegaly. *Hernia: none palpated Back: Appearance normal. Palpation no costovertebral angle tenderness Female Genitalia: Vulva: no masses, no atrophy , no lesions. Mons: normal, no erythema, no excoriation, no atrophy, no lesions, no vesicles/ ulcers, no masses, no swelli ng, no tenderness. Labia Majora: normal, no erythema, no exco riation, no atrophy, no discoloration, no lesions, n o vesicles/ ulcers, no masses, no swelling, no tenderness. Lab ia Minora: normal, no erythema, no excoriation, no atrophy, no discoloration, no lesions, no vesicles, no masses, no swel ling, no tenderness. Introitus: normal. Bartholin's Gland: n ormal. *Vagina: normal, no discharge, no blood present, no erythema, no atrophy, no lesions, no ulcers, no swell ing, no masses, no tenderness, no prolapse. *Cervix: grossly n ormal, no lesions, no discharge, no bleeding, no cervical motion tenderness. *Uterus: normal size, normal contour, midline, no uterine prolapse, mobile, non-tender. *Urethral Meatus / Urethra: normal meatus, no discharge, well supported ur ethra, no masses, no tenderness. *Bladder: non-distended, no palpable mass, non-tender. *Adnexa/Parametria: no mass palpable, no tenderness Rectum: *Anus & Perineum: normal per ianal skin, no anal fissure, no hemorrhoids, normal perineum . *Digital Rectal: sphincter tone normal, no hemorrhoids, no m asses, normal rectovaginal septum Extremities: Legs: normal. Arms: normal. Pulses: normal Skin: *Appearance: no rashes, no l esions Neurological System: Impressions: motor: no defic its, sensory: no deficits Psychiatric: *Orientation: to person, to place, to time. *Mood and Affect: active and alert, normal moo d, normal affect
--- OUTSIDE RECORDS SUMMARY | 2022-08-31 15:02 | XMS_ITS | Encounter Summary ---
:1970 Author Organization [facility] Address [address] [place] [address] Care Team Providers Name Role Phone Unavailable Primary Care Provider Unavailable Encounter Details Date Type Department Care Team Description 05/28/2010 Historic Results INTERFACED REPORT Abby Varela MD [address] [place] [address] (Wo rk) Social History Tobacco Use Types Packs/Day Years Used Date Smoking Tobacco: Never Assessed Sex Assigned at Date Recorded Not on file documented as of this encounter Plan of Treatment Not on filedocumented as of this encounter Procedures Procedure Name Priority Date/Time Associated Diagnosis Comme nts FIRST TRIMESTER Routine 05/28/2010 9:59 AM Result s for this SCREEN BIOCHEM CDT procedure are in MARKERS the results section. documented in this encounter Results First trimester scrn chrom 7 18 (05/28/2010 9:59 AM CDT) [facility] gist Method Time Signature Lab Scanned Laboratory [facility] Result Scanned Result [id number] Specimen Anatomical Collection Method Collection Time Receive d Time (Source) Location / / Volume Laterality 05/28/2010 9:59 AM 0 9:49 CDT AM CDT Abby Varela MD LAB - BLOOD ORDERABLES Performing Organization Address City/State/ZIP Code Phon e Number MISYS documented in this encounter Visit Diagnoses Not on filedocumented in this encounter
--- OUTSIDE RECORDS SUMMARY | 2022-08-31 15:02 | XMS_ITS ---
:1970 Author Care Team Providers Name Role Phone Zoë Davis Primary Care Provider Unavailable Allergies Code Code System Name Reaction Severity Status Onset NKDA ? Medications Name Status Start Date Stop Date ? ? Accu-Chek Guide Glucose Meter Active ? No t available Use as directed. Accu-Chek Guide test strips Active ? Not available TEST 3 TIMES DAILY Accu-Chek Softclix Lancets Active ? Not a vailable TEST 3 TIMES DAILY albuterol sulfate 2.5 mg/3 mL (0.083 %) solution for Completed ? 06/07/2021 nebulization alprazolam 0.5 mg tablet Active ? Not job ilable Take 1 Tablet (0.5 mg) by mouth daily a s needed for Anxiety. Replaces all previous alprazolam scripts amoxicillin 875 mg-potassium clavulanate 125 mg tablet Completed ? 06/07/2021 aripiprazole 10 mg tablet Completed ? 2020 Take 1 Tablet by mouth daily aripiprazole 15 mg tablet Active ? Not av ailable Take 0.5 Tablets (7.5 mg) by mouth daily. aripiprazole 5 mg tablet Active ? Not job ilable Take 1 Tablet by mouth daily Cymbalta Completed ? 06/07/2021 doxycycline hyclate 100 mg capsule Completed ? 06/07/2021 duloxetine 30 mg capsule,delayed release Active ? Not available TAKE THREE CAPSULES BY MOUTH DAILY duloxetine 60 mg capsule,delayed release Active ? Not available Take 2 Capsules (120 mg) by mouth daily. eszopiclone 2 mg tablet Active ? Not avai lable Take 1 Tablet (2 mg) by mouth at bedtime as needed for Other (f or insomnia). Flovent HFA 110 mcg/actuation aerosol inhaler Active ? Not available fluconazole 150 mg tablet Completed ? 2020 ibuprofen 600 mg tablet Completed ? 06/07/20 ipratropium 0.5 mg-albuterol 3 mg (2.5 mg base)/3 mL nebulizatio n soln Active ? Not available Inhale 3 mL every 6 hours as needed for Wheezing. levofloxacin 750 mg tablet Completed ? 06/07 lisinopril 2.5 mg tablet Active ? Not job ilable Take 1 Tablet by mouth daily medroxyprogesterone 150 mg/mL intramuscular suspension Active ? Not available Inject 1 mL every 3 months by intramuscular route. medroxyprogesterone 150 mg/mL intramuscular syringe Active ? Not available Inject 1 mL every 3 months by intramuscular route. metformin ER 500 mg tablet,extended release 24 hr Active ? Not available Take 4 Tablets by mouth every evening with a meal methylphenidate 20 mg tablet Active ? Not available Take 1 Tablet (20 mg) by mouth three times a day. methylprednisolone 4 mg tablets in a dose pack Active ? Not available TAKE BY MOUTH DIRECTED IN PACKAGE INSTRUCTIONS. montelukast 10 mg tablet Active ? Not job ilable Take 1 Tablet (10 mg) by mouth every ev ening. Will need an appointment for further refills. nystatin 100,000 unit/mL oral suspension Completed ? 06/07/2021 oxycodone 5 mg tablet Completed ? 06/07/2021 oxycodone-acetaminophen 5 mg-325 mg tablet Active ? Not available TAKE ONE TABLET BY MOUTH EVERY SIX HOURS NEEDED FOR PAIN paroxetine 40 mg tablet Completed ? 06/07/20 21 prednisone 20 mg tablet Completed ? 06/07/20 21 Take 2 Tablets by mouth daily for 5 days. PreviDent 5000 Sensitive 1.1 %-5 % dental paste Active ? Not available USE TO BRUSH TEETH. ProAir HFA 90 mcg/actuation aerosol inhaler Active ? Not available Inhale 1-2 Puffs every 4 hours as neede d for Wheezing. Pharmacy may substitute albuterol HFA inhalers based on insurance rosuvastatin 10 mg tablet Active ? Not av ailable Take 1 Tablet by mouth daily Symbicort 160 mcg-4.5 mcg/actuation HFA aerosol inhaler Active ? Not available INHALE TWO PUFFS BY MOUTH TWICE DAILY. RINSE MOUTH/GARGLE AFTER USE tobramycin 0.3 % eye drops Completed ? 06/07 INSTILL 1 DROP INTO THE LEFT EYE EVERY 2 HOURS FOR 2 DAYS THEN 4 TIMES A DAY FOR 1 WEEK topiramate 25 mg tablet Active ? Not avai lable TAKE ONE TABLET BY MOUTH TWICE DAILY topiramate 50 mg tablet Active ? Not avai lable take 1 tablet by mouth in the morning a nd 3 tablets in the late afternoon/evening UltiCare Pen Needle 32 gauge x Active ? Not available USE TO INJECT DAILY, EACH NEEDLE IS ONE TIME USE Victoza 3-Boom 0.6 mg/0.1 mL (18 mg/3 mL) subcutaneous pen inject or Active ? Not available INJECT 1.8 MG SUBCUTANEOUSLY DAILY zolpidem 10 mg tablet Completed ? 06/07/2021 TAKE 1 TABLET BY MOUTH AT BEDTIME NEEDED Problems Name Status Onset Date Source ? Family History of Malignant Neoplasm of Gastrointestinal Active 02/25/2010 History Tract Anxiety State Active ? History Depressive Disorder Active ? History Procedures Date Name Performed by ? ? Termination of Information not available Notes: 1999, 2004 ? Appendectomy Information not avai lable ? Hernia Repair Information not avai lable Notes: Thoracic Surgery-pneumo thorax Results Lab Results Date Name Specimen Result Interpretation Description Value Range Status Address ? 08/22/2022 ? Result negative ? ? [id number]: Test, UPT [address] [facility] [place] [address], [place] 05/06/2022 ? Result negative ? ? [id number]: 3625 Test, UPT [address], [place] Urine 06/07/2021 HPV DNA, C ? HPV negative negative [facility] - Lab: High-risk E High for HPV for HPV [address], R Risk type 16. type 16. Leonard winston V Type 16 I X & C E R V I X ? ? C ? HPV negative negative [facility] - Lab: E High for HPV for HPV [address], R Risk type 18. type 18. Leonard winston V Type 18 I X & C E R V I X ? ? C ? HPV negative negative [facility] - Lab: E Other for other for [address], R High high risk other Stephen saldana V Risk HPV high I Types types. risk HPV X types. & C E R V I X 06/07/2021 Pap, LB C ? Case see note ? [facility] - Lab: E Report [address] V I X & C E R V I X Past Encounters Encounter Date Diagnosis Provider 08/22/2022 Gynecologic Examination; Nica Hardwick D: [address] [facility] Contraception Care Management [address], [address] [address], Ph. 05/06/2022 Contraception Care Sharri Monsalve MD : [address] [facility] [address], [address] [address], Ph. 01/20/2022 Sharri Monsalve MD : [address] [facility] [address], [address] [address], Ph. 08/02/2021 Sharri Monsalve MD : [address] [facility] [address], [address] [address], Ph. 06/07/2021 Gynecologic Examination; Shellie Martinez NM: [address] [facility] Contraception Care Management; Mixed Jr gabriela [address], [address] [facility], [place]xiety [place] [address], Ph. 05/03/2021 Contraception Care Management Sadia hercules MD: [address] [facility] [address], [address], [place] [address], Ph. Social History Tobacco Smoking Status Never Smoker Vaccine List Vaccine Type unknown 05/26/2010 Plan of Care Patient Instructions Return in 1 year for annual examination . Schedule bilateral screening mammogram, 3D. Discussed discontinuation of Depo-Electroneurodiagnostic Technician a in the not distant future. Indications to call or return were discussed and the briana brandt expressed understanding. Reminders Provider Appointments None recorded. ? ? Lab None recorded. ? ? Referral None recorded. ? ? Procedures None recorded. ? ? Surgeries None recorded. ? ? Imaging None recorded. ? ? Vitals 08/22/2022 09:00AM G_ANNUAL EXAM Height Weight BMI Blood Pressure 6 ft 257.2 lbs 34.9 kg/m2 126/82 mm[Hg] 06/07/2021 11:30AM G_ANNUAL EXAM Height Weight BMI Blood Pressure 6 ft 258.2 lbs 35 kg/m2 122/80 mm[Hg] 03/26/2019 Height Weight BMI Blood Pressure 6 ft 234 lbs 31.74 kg/m2 110/60 mm[Hg] 01/29/2018 Height Weight BMI Blood Pressure 6 ft 221 lbs 29.97 kg/m2 128/72 mm[Hg] 01/23/2017 Height Weight BMI Blood Pressure 6 ft 219.19 lbs 29.73 kg/m2 118/80 mm[Hg] 11/06/2015 Height Weight BMI Blood Pressure 6 ft 215.63 lbs 29.24 kg/m2 126/82 mm[Hg] 09/23/2014 Height Weight BMI Blood Pressure 6 ft 194 lbs 26.31 kg/m2 102/70 mm[Hg] 08/30/2013 Height Weight BMI Blood Pressure 6 ft 199.25 lbs 27.02 kg/m2 106/68 mm[Hg] 06/20/2012 Height Weight BMI Blood Pressure 6 ft 163 lbs 22.11 kg/m2 102/60 mm[Hg] 01/20/2011 Height Weight BMI Blood Pressure 6 ft 179 lbs 24.28 kg/m2 98/68 mm[Hg] 12/29/2010 Height Weight BMI Blood Pressure 6 ft 177 lbs 24.01 kg/m2 114/70 mm[Hg] 04/30/2010 Height Weight BMI Blood Pressure 6 ft 178 lbs 24.14 kg/m2 110/62 mm[Hg] 04/16/2010 Height Weight BMI Blood Pressure 6 ft 176.5 lbs 23.94 kg/m2 100/52 mm[Hg] 02/25/2010 Height Weight BMI Blood Pressure 6 ft 174 lbs 23.60 kg/m2 120/70 mm[Hg]
--- OUTSIDE RECORDS SUMMARY | 2022-08-31 15:02 | XMS_ITS | Encounter Summary ---
:1970 Author Organization [facility] Address [address] [place] [address] Care Team Providers Name Role Phone Unavailable Primary Care Provider Unavailable Encounter Details Date Type Department Care Team Description 02/26/2010 [facility] [place] [address] [address] [place] [address] [phone] (Wo rk) Social History Tobacco Use Types Packs/Day Years Used Date Smoking Tobacco: Never Assessed Sex Assigned at Date Recorded Not on file documented as of this encounter Plan of Treatment Not on filedocumented as of this encounter Procedures Procedure Name Priority Date/Time Associated Comments Diagnosis HCG QUANTITATIVE STAT 02/26/2010 12:50 Results for this PM CDT procedure are i n the results section. documented in this encounter Results HCG quantitative (02/26/2010 12:50 PM CDT) P athologist Signature HCG Quantitative 622 IU/L MISYS Serum Comment: Non- ?0 - 5 , weeks from LMP: ??1 - 10 weeks ? 64 - 151,000 IU/L 11 - 15 weeks 11,800 - 152,000 IU/L 16 - 22 weeks ??9,380 - 61,400 IU/L 23 - 40 weeks ??1,740 - 98,600 IU/L Specimen Anatomical Collection Method Collection Time Receive d Time (Source) Location / / Volume Laterality 02/26/2010 12:50 02/26/2010 PM CDT 12:44 PM CDT Kalee Lima MD LAB - BLOOD ORDERABLES Performing Organization Address City/State/ZIP Code Phon e Number MISYS documented in this encounter Visit Diagnoses Not on filedocumented in this encounter
--- OUTSIDE RECORDS SUMMARY | 2022-08-31 15:02 | XMS_ITS | Encounter Summary ---
:1970 Author Organization [facility] Address [address] [place] [id number] Care Team Providers Name Role Phone Clinic, [facility] Primary Care Provider [phone] Reason for Visit Reason Comments Shortness of Breath Auth/Cert Specialty Diagnoses / Procedures Referred By Contact Refer red To Contact Diagnoses Reactive airway disease with acute exacerbation, unspecified asthma severity, unspecified whether persistent Hypoxia [facility] [address] [place], [place] [address] Phone: Fax: Referral ID Status Reason Start Date Expiration Date Visits Requ ested Visits Authorized [id number] 12/31/2017 12/31/2018 1 1 Encounter Details Date Type Department Care Team Description 12/30/2017 - [facility] Nash Mc MD [facility] [address] [place] [address] Reactive airway disease with acute exace rbation, unspecified asthma severity, unspecified whether persistent; 01/01/2018 Encounter [facility] Chance Funk MD, MD [address] [place] [address] Acute respiratory failure with hypoxia ( H) [facility] [address] [place] [address] Social History Tobacco Use Types Packs/Day Years Used Date Smoking Tobacco: Never Assessed Sex Assigned at Date Recorded Not on file documented as of this encounter Last Filed Vital Signs Vital Sign Reading Time Taken Comments Blood Pressure 118/54 01/01/2018 7:53 AM CDT Pulse 100 12/31/2017 7:35 PM CDT Temperature 37 ??C (98.6 ??F) 01/01/2018 7:53 AM CDT Respiratory Rate 20 01/01/2018 7:53 AM CDT Oxygen Saturation 90% 01/01/2018 2:37 PM CDT Inhaled Oxygen Concentration - - Weight - - Height - - Body Mass Index - - documented in this encounter Discharge Summaries Tarah Martínez MD - 01/01/2018 12:42 PM CDT Images from the original note were not included. [facility] Discharge Summary Hospitalist Date of Admission: 12/30/2017 Date of Discharge: 01/01/2018 Provider: Tarah Martínez MD Date of Service (when I last saw the patient): 01/01/18 Primary Provider: Negin Ma [facility] Discharge Diagnosis: Discharge Diagnoses Acute hypoxic respiratory failure secondary to possible asthma Reactive airway disease suspect asthma Leukocytosis secondary to steroid use Other medical issues: No past medical history on file. History of Present Illness Rajesh Stevens is an 47 year old female who presented with shortness of breath. Please see theadmission history and physical for full details. Hospital Course Rajesh Stevens was admitted on 12/30/2017.She is a 47 year old female with past medical historysignificant for depression, anxiety and attention deficit hyperactive disorder and reactive airway disease presented to emergency room with shortness of breath and admitted for acute hypoxic respiratory failure secondary to possible asthma. The following problems were addressed during her hospitalization: Acute hypoxic respiratory failure secondary to possible asthma --Treated with IV Solu-Medrol and switch to prednisone prior to discharge --Patient to continue duo nebs at home --Initially needed supplemental O2 which was weaned off prior to discharge --We will DC home on slow taper off steroids. --She will need to follow-up once treatment is completed to get pulmonary function tests --Ambulatory sats more than 90% on discharge on room air with ambulation Leukocytosis/lactic acidosis --Secondary to steroids and nebs used for asthma possible --Pro calcitonin negative --No fever --No evidence of acute infection Major depression/ADHD/Anxiety --Continued prior to admission Wellbutrin, Abilify and Ritalin Significant Results and Procedures As noted Pending Results Unresulted Labs Ordered in the Past 30 Days of this Admission Date and Time Order Name Status Description 01/01/2018 0714 Procalcitonin In process Code Status Full Code Primary Care Physician Negin Hough [facility] Physical Exam Temp: 98.6 ??F (37 ??C) Temp src: Oral BP: 118/54 Pulse: 100 Heart Rate: 71 Resp: 20 SpO2: 94 % O2 Device: None (Room air) Oxygen Delivery: 1 LPM There were no vitals filed for this visit. Vital Signs with Ranges Temp: [97.6 ??F (36.4 ??C)-98.9 ??F (37.2 ??C)] 98.6 ??F (37 ??C) Pulse: [100] 100 Heart Rate: [12-113] 71 Resp: [18-22] 20 BP: (102-118)/(50-58) 118/54 SpO2: [90 %-96 %] 94 % I/O last 3 completed shifts: In: 2171 [P.O.:500; I.V.:1671] Out: - Constitutional: Awake, alert, cooperative, no apparent distress, and appears stated age. Respiratory: No increased work of breathing, good air exchange, few scattered wheezing, no crackles or wheezing. Cardiovascular: Normal apical impulse,normal S1 and S2, GI: No scars, normal bowel sounds, soft, non-distended, non-tender, no masses palpated, no hepatosplenomegaly. Discharge Disposition Discharged to home Consultations This Hospital Stay RESPIRATORY CARE IP CONSULT Time Spent on this Encounter Tarah Cantrell, personally saw the patient today and spent greater than 30 minutes discharging this patient. Discharge Orders Reason for your hospital stay Please refer to discharge summary. Briefly admitted for reactive airway disease. Required nebulizer treatment and IV steroids. Follow-up and recommended labs and tests Follow up with primary care provider, [facility], within 7 days for hospitalfollow- up. No follow up labs or test are needed.cbc (had steroid induced leukocytosis will need follow-up to ensure resolution) Patient will need follow-up pulmonary function tests in 3-4 weeks once better to establish diagnosisshe could possibly have asthma but is not diagnosed. Activity Your activity upon discharge: activity as tolerated Full Code Diet Follow this diet upon discharge: Orders Placed This Encounter Combination Diet Regular Diet Adult Discharge Medications Current Discharge Medication List START taking these medications Details predniSONE (DELTASONE) 20 MG tablet Prednisone 60 mg on 01/02 and 01/03/2018 Prednisone 50 mg on 01/04 and 01/05/2018 Prednisone 40 mg on 01/06 and 2017 Prednisone 30 mg on 01/08 and 01/09/2018 Prednisone 20 mg on 01/10 and Prednisone 10 mg on 01/12 and 01/13/2018 Prednisone 5 mg on 01/14 and 01/15/2018 Qty: 30 tablet, Refills: 0 Associated Diagnoses: Reactive airway disease with acute exacerbation, unspecified asthma severity,unspecified whether persistent CONTINUE these medications which have CHANGED Details ipratropium - albuterol 0.5 mg/2.5 mg/3 mL (DUONEB) 0.5-2.5 (3) MG/3ML neb solution Take 1 vial (3 mLs) by nebulization 4 times daily Qty: 360 mL, Refills: 0 Associated Diagnoses: Acute respiratory failure with hypoxia (H); Reactive airway disease with acute exacerbation, unspecified asthma severity, unspecified whether persistent CONTINUE these medications which have NOT CHANGED Details albuterol (2.5 MG/3ML) 0.083% neb solution Take 1 vial by nebulization every 4 hours as needed for wheezing Multiple Vitamins-Minerals (MULTIVITAMIN ADULT PO) Take 1 tablet by mouth daily ARIPiprazole (ABILIFY) 10 MG tablet Take 10 mg by mouth daily buPROPion (WELLBUTRIN XL) 150 MG 24 hr tablet Take 450 mg by mouth daily zolpidem (AMBIEN) 10 MG tablet Take 5 mg by mouth At Bedtime ALPRAZolam (XANAX) 0.5 MG tablet Take 0.5 mg by mouth daily as needed for anxiety clonazePAM (KLONOPIN) 2 MG tablet Take 2 mg by mouth At Bedtime methylphenidate (RITALIN) 20 MG tablet Take 20 mg by mouth 3 times daily Allergies No Known Allergies Data Most Recent 3 CBC's: Recent Labs Lab Test 01/01/18 0714 12/30/17 1542 12/30/17 1145 12/08/10 0642 WBC 16.6* -- 8.3 -- HGB 12.2 -- 13.6 12.5 MCV 93 -- 92 -- PLT 219 206 208 -- Most Recent 3 BMP's: Recent Labs Lab Test 01/01/18 0714 12/30/17 1145 NA 145* 142 POTASSIUM 3.7 4.1 CHLORIDE 115* 108 CO2 21 28 BUN 14 11 CR 0.76 0.84 ANIONGAP 9 6 TAMY 9.2 8.9 GLC 133* 120* Most Recent 2 LFT's: Recent [...] found. Most Recent TSH, T4 and A1c Labs:No lab results found. Results for orders placed or performed during the hospital encounter of 12/30/17 Chest XR, PA & LAT Narrative CHEST TWO VIEWS 12/30/2017 1:00 PM COMPARISON: None. HISTORY: Cough, dyspnea. FINDINGS: The cardiac silhouette, pulmonary vasculature, lungs and pleural spaces are within normal limits. Impression IMPRESSION: Clear lungs. SHANE DOWLING MD Disclaimer: This note consists of symbols derived from keyboarding, dictation and/or voice recognition software. As a result, there may be errors in the script that have gone undetected. Please consider this when interpreting information found in this chart. documented in this encounter Medications at Time [...] 0 Vitamins-Minerals mouth daily (MULTIVITAMIN ADULT PO) buPROPion (WELLBUTRIN Take 450 mg by mouth 0 10/17/2018 XL) 150 MG 24 hr tablet daily clonazePAM (KLONOPIN) 2 Take 2 mg by mouth At 0 10/17/2018 MG tablet Bedtime ipratropium - albuterol Take 1 vial (3 mLs) 360 mL 0 02/17/2020 0.5 mg/2.5 mg/3 mL by nebulization 4 (DUONEB) 0.5-2.5 (3) times daily MG/3ML neb solutionIndications: Acute respiratory failure with hypoxia (H), Reactive airway disease with acute exacerbation, unspecified asthma severity, unspecified whether persistent predniSONE (DELTASONE) Prednisone 60 mg on 01/02 and 01/03/2018 30 ta blet 0 01/01/2018 10/17/2018 20 MG tabletIndications: Prednisone 50 mg on 01/04 and 01/05/2018 Reactive airway disease Prednisone 40 mg on 01/06 and 2017 with acute exacerbation, Prednisone 30 mg on 01/08 and 01/09/2018 unspecified asthma Prednisone 20 mg on 01/10 and severity, unspecified Prednisone 10 mg on 01/12 and 01/13/2018 whether persistent Prednisone 5 mg on 01/14 and 01/15/2018 zolpidem (AMBIEN) 10 MG Take 5 mg by mouth At 0 10/17/2018 tablet Bedtime documented as of this encounter Progress Notes Raissa Pruitt, NATHAN - 01/01/2018 3:42 PM CDT Pt to D/C to home. Pt provided with d/c instructions, including new medications, when medications were last given, and when to take them again. Pt also informed to f/u with PCP within 7 days. Pt verbalized understanding of all d/c and f/u instructions. All questions were answered at this time. Copy ofpaperwork sent with pt. Script for prednisone sent with pt. Significant other to provide transport. All personal belongings sent with pt. Tarah Martínez MD - 12/31/2017 9:47 AM CDT [facility] Hospitalist Progress Note Name: Rajesh Stevens Provider: Tarah Martínez MD Date of Service: 12/31/2017 Assessment & Plan Summary of Stay: Rajesh Stevesn is a 47 year old female with past medical history significant for depression, anxiety and attention deficit hyperactive disorder and reactive airway disease presented to emergency room with shortness of breath on 12/30/2017. Admitted for acute hypoxic respiratory failure secondary to asthma. Acute hypoxic respiratory failure secondary to asthma --Started on IV Solu-Medrol will continue --We will switch albuterol to Xopenex given patient's lactic acidosis --Continue ipratropium nebulizers --Supplemental O2 as needed. 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 Continues to have chest tightness will continue IV steroids for now. No known diagnosis of asthma. She is empirically treated for presumed asthma. No abdominal pain and nausea no vomiting. Review of all the systems negative -Data reviewed today: I reviewed all new labs and imaging reports over the last 24 hours. I personally reviewed no images or EKG's today. Physical Exam Temp: 98 ??F (36.7 ??C) Temp src: Oral BP: 111/57 Pulse: 112 Heart Rate: 101 Resp: 20 SpO2: 92 % O2 Device: Nasal cannula Oxygen Delivery: 3 LPM There were no vitals filed for this visit. Vital Signs with Ranges Temp: [97.3 ??F (36.3 ??C)-98.1 ??F (36.7 ??C)] 98 ??F (36.7 ??C) Pulse: [104-112] 112 Heart Rate: [101-126] 101 Resp: [20-30] 20 BP: (111-154)/(55-97) 111/57 SpO2: [86 %-95 %] 92 % GEN: Alert, oriented x 3, appears comfortable, NAD. HEENT: Normocephalic/atraumatic, no scleral icterus, no nasal discharge, mouth moist. CV: Tachycardic, no murmur or JVD. S1 + S2 noted, no S3 or S4. LUNGS: Scattered wheezing. Symmetric chest rise on inhalation noted. ABD: Active bowel sounds, soft, non-tender/non-distended. No rebound/guarding/rigidity. EXT: No edema. No cyanosis. No joint synovitis noted. SKIN: Dry to touch, no exanthems noted in the visualized areas. Medications ??? sodium chloride 100 mL/hr at 12/30/17 2211 ??? sodium chloride 0.9% 500 mL Intravenous Once ??? levalbuterol 0.63 mg Nebulization Q8H ??? ipratropium 0.5 mg Nebulization 4x daily ??? heparin 5,000 Units Subcutaneous Q12H ??? methylPREDNISolone 62.5 mg Intravenous Q6H ??? influenza quadrivalent (PF) vacc age 3 yrs and older 0.5 mL Intramuscular Prior to discharge ??? clonazePAM 2 mg Oral At Bedtime ??? sodium chloride 0.9% 500 mL Intravenous Once ??? zolpidem 5 mg Oral At Bedtime Data Recent Labs Lab 12/30/17 1542 12/30/17 1145 WBC -- 8.3 HGB -- 13.6 HCT -- 40.7 MCV -- 92 PLT 206 208 Recent Labs Lab 12/30/17 1145 NA 142 POTASSIUM 4.1 CHLORIDE 108 CO2 28 ANIONGAP 6 GLC 120* BUN 11 CR 0.84 GFRESTIMATED 73 GFRESTBLACK 88 TAMY 8.9 No results for input(s): CULT in the last 168 hours. No results for input(s): INR in the last 168 hours. Recent Labs Lab 12/31/17 0755 12/30/17 2233 12/30/17 1857 LACT 2.5* 3.9* 4.7* No results for input(s): LIPASE in the last 168 hours. Recent Labs Lab 12/30/17 1145 TROPI <0.015 No results for input(s): COLOR, APPEARANCE, URINEGLC, URINEBILI, URINEKETONE, SG, UBLD, URINEPH, PROTEIN, UROBILINOGEN, NITRITE, LEUKEST, RBCU, WBCU in the last 168 hours. Recent Results (from the past 24 hour(s)) Chest XR, PA & LAT Narrative CHEST TWO VIEWS 12/30/2017 1:00 PM COMPARISON: None. HISTORY: Cough, dyspnea. FINDINGS: The cardiac silhouette, pulmonary vasculature, lungs and pleural spaces are within normal limits. Impression IMPRESSION: Clear lungs. SHANE DOWLING MD Tarah Martínez MD - 12/31/2017 9:46 AM CDT [facility] Sepsis Evaluation Progress Note Date of Service: 12/31/2017 I was called to see Rajesh Stevens due to abnormal vital signs triggering the Sepsis SIRS screening alert. She is not known to have an infection. Physical Exam Vital Signs: Temp: 98 ??F (36.7 ??C) Temp src: Oral BP: 111/57 Pulse: 112 Heart Rate: 101 Resp: 20 SpO2: 92 % O2 Device: Nasal cannula Oxygen Delivery: 3 LPM Lab: Lactic Acid Date Value Ref Range Status 12/31/2017 2.5 (H) 0.7 - 2.0 mmol/L Final The patient is at baseline mental status. The rest of their physical exam is significant for SOb on nebs. Assessment and Plan The SIRS and exam findings are likely due to Asthma and Albuterol nebs, there is no sign of sepsis at this time. Disposition: The patient will remain on the current unit. We will continue to monitor this patient closely. Tarah Martínez MD Estella Serrano MD - 12/30/2017 10:53 PM CDT [facility] Sepsis Evaluation Progress Note Date of Service: 12/30/2017 I was called to see Rajesh Stevens due to abnormal vital signs triggering the Sepsis SIRS screening alert. She is not known to have an infection. Physical Exam Vital Signs: Temp: 98 ??F (36.7 ??C) Temp src: Oral BP: 133/58 Pulse: 108 Heart Rate: 119 Resp: 20 SpO2: 93 % O2 Device: Nasal cannula Oxygen Delivery: 3 LPM Lab: Lactic Acid Date Value Ref Range Status 12/30/2017 3.9 (H) 0.7 - 2.0 mmol/L Final The patient is at baseline mental status. Assessment and Plan The SIRS and exam findings are likely due to nebs, there is no sign of sepsis at this time. Disposition: The patient will remain on the current unit. We will continue to monitor this patient closely. Estella Serrano MD, MD Chance Funk MD - 12/30/2017 4:51 PM CDT [facility] Sepsis Evaluation Progress Note Date of Service: 12/30/2017 I was called to see Rajesh Stevens due to abnormal vital signs triggering the Sepsis SIRS screening alert. She is not known to have an infection. Physical Exam Vital Signs: Temp: 98.1 ??F (36.7 ??C) Temp src: Oral BP: 113/62 Pulse: 104 Heart Rate: 125 Resp: 22 SpO2: 94 % O2 Device: Nasal cannula Oxygen Delivery: 3 LPM Lab: Lactic Acid Date Value Ref Range Status 12/30/2017 3.6 (H) 0.7 - 2.0 mmol/L Final The patient is at baseline mental status. The rest of their physical exam is significant for unchanged from this pm. Assessment and Plan The SIRS and exam findings are likely due to nebs, there is no sign of sepsis at this time. Disposition: The patient will remain on the current unit. We will continue to monitor this patient closely. Lisa Funk MD Cole Waggoner RT - 12/30/2017 4:06 PM CDT [facility] Date: 12/30/2017 Admission Dx: Asthma Pulmonary History: Asthma Home Nebulizer/MDI Use: Albuterol Q4 hours prn, Duoneb TID Home Oxygen: Room air Acuity Level (RCAT flow sheet): 3 Aerosol Therapy initiated: Duoneb QID with Albuterol Q2 hours prn. Pulmonary Hygiene initiated: Deep breath and cough TID. Volume Expansion initiated: IS TID. Current Oxygen Requirements: 3 Lpm NC Current SpO2: 94% Re-evaluation date: 01/02/2018 Patient Education: Informed Pt of RCAT. Encouraged deep breathing and IS use. See RT Assessments flow sheet for patient assessment scoring and Acuity Level Details. Cole Waggoner December 30, 2017.4:06 PM documented in this encounter H&P Notes Chance Funk MD - 12/30/2017 2:39 PM CDT Admitted: 12/30/2017 CHIEF COMPLAINT: Shortness of breath. HISTORY OF PRESENT ILLNESS: This is a 47-year-old white female with a history of major depressive disorder, attention deficit disorder, substance abuse in the past, reactive airway disease who presentswith shortness of breath of 1 day's duration. The patient states that she has been 4 times in the past 5 months to urgent care secondary to shortness of breath. She is normally treated with prednisone steroids and some antibiotics. She was prescribed Advair due to concern for possible asthma; however,for the past 2 days, she did not take her Advair. The patient states that she has been quite short of breath for the past day. She has used several nebulizers to no good effect. She has been having a dr y cough. She denies any fevers, chills or chest pain. In the ER over here, she was seen by Dr. Mc. She was noted to have acute asthma exacerbation. I am asked to admit her for further evaluation. PAST MEDICAL HISTORY: Depression, anxiety, attention deficit hyperactive disorder. PAST SURGICAL HISTORY: Significant for hernia repair, appendectomy, spontaneous pneumothorax surgery. FAMILY HISTORY: Significant for brain aneurysm in her father. SOCIAL HISTORY: She does not smoke. She is not exposed to secondhand smoke. She is . 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 She denies any alcohol intake. MEDICATIONS: Depo shot, Abilify, Wellbutrin, clonazepam, nebulizer. ALLERGIES: No known drug allergies. REVIEW OF SYSTEMS: As mentioned in HPI. She denies any recent travel. All other systems extensively reviewed and deemed unremarkable and negative. PHYSICAL EXAMINATION: VITAL SIGNS: Temperature is 98, pulse is 104. Blood pressure is 154/74, respiratory rate 30, O2 sat is 92% on 2 liters. GENERAL: The patient is alert, awake, oriented, coherent, nontoxic, in no acute distress. HEENT: Pupils equal, round, reactive to light. Pharynx has no edema noted. LUNGS: Diffuse expiratory wheezing bilaterally. HEART: Regular rate, S1, S2 normal. No murmurs or gallops. ABDOMEN: Soft, nontender, with good bowel sounds. EXTREMITIES: There is no edema. SKIN: There is no rash. LABORATORY: Labwork obtained here included a CMP which is grossly within normal limits. BNP was 27. Troponin was undetectable. CBC with diff was grossly within normal limits. D- dimer was less than 0.3. Chest x-ray showed clear lungs. ASSESSMENT AND PLAN: 1. Acute hypoxic respiratory failure likely due to status asthmaticus. We will admit her as an inpatient and will provide her with DuoNeb as well as IV Solu- Medrol and a peak flow meter. She will require further follow up with Pulmonology with spirometry. 2. Major depressive disorder: Resume her home meds once reconciled. 3. Anxiety. Resume home meds once reconciled. She will be admitted as an inpatient. CODE STATUS: Full code. LISA FUNK MD MT: LI Name: RAJESH STEVENS Account: [id number] : 1970 Admitted: 12/30/2017 Document: [id number] documented in this encounter ED Notes Rain Deluna RN - 12/30/2017 2:20 PM CDT [facility] ED Nurse Handoff Report Rajesh Stevens is a 47 year old female ED Chief complaint: Shortness of Breath . ED Diagnosis: Final diagnoses: Reactive airway disease with acute exacerbation, unspecified asthma severity, unspecified whether persistent Allergies: No Known Allergies Code Status: Full Code Activity level - Baseline/Home: Independent. Activity Level - Current: Independent. Lift room needed: No. Bariatric: No Interactive Producer Needed: No Isolation: No. Infection: Not Applicable. Vital Signs: Vitals: 12/30/17 1315 12/30/17 1330 12/30/17 1345 12/30/17 1400 BP: 122/74 117/64 136/66 154/74 Pulse: 64 Resp: 15 Temp: 98 TempSrc: SpO2: 91% 92% 93% 92% 3L NC Cardiac Rhythm: , Pain level: 0-10 Pain Scale: 0 Patient confused: No. Patient Falls Risk: Yes. Elimination Status: Has voided Patient Report / Focused Assessment: Respiratory - Respiratory WDL: all (pt comes in with SOB that started yesterday, using inhalers and nebs with no relief. ) Rhythm/Pattern, Respiratory: shortness of breath reported Lung Chisholm: All Chisholm Throughout All Lung Chisholm: wheezes inspiratory; wheezes expiratory Tests Performed / Abnormal Results: Labs Ordered and Resulted from Time of ED Arrival Up to the Time of Departure from the ED COMPREHENSIVE METABOLIC PANEL - Abnormal; Notable for the following: Result Value Glucose 120 (*) All other components within normal limits CBC WITH PLATELETS DIFFERENTIAL TROPONIN I NT PROBNP INPATIENT D DIMER QUANTITATIVE PERIPHERAL IV CATHETER Chest XR, PA & LAT Preliminary Result IMPRESSION: Clear lungs. Treatments provided: PIV, LABS, XRAY, NEBS, SOLU-METROL, BP AND PULSE OX MONITORING. Family Comments: AT BEDSIDE OBS brochure/video discussed/provided to patient: No ED Medications: Medications ipratropium - albuterol 0.5 mg/2.5 mg/3 mL (DUONEB) neb solution 6 mL (6 mLs Nebulization Given 12/30/17 4793) methylPREDNISolone sodium succinate (solu-MEDROL) injection 125 mg (125 mg Intravenous Given ) ipratropium - albuterol 0.5 mg/2.5 mg/3 mL (DUONEB) neb solution 3 mL (3 mLs Nebulization Given 12/30/17 1321) Drips infusing: No For the majority of the shift, the patient's behavior Green. Interventions performed were PIV, LABS, XRAY, NEBS, SOLU-METROL, BP AND PULSE OX MONITORING. Severe Sepsis OR Septic Shock Diagnosis Present: No ED Nurse Name/Phone Number: Gingerpete Nisa, RN [phone] 2:20 PM RECEIVING UNIT ED HANDOFF REVIEW Above ED Nurse Handoff Report was reviewed: Yes Reviewed by: Rain Deluna on December 30, 2017 at 3:11 PM Kortney Thakur RN - 12/30/2017 10:55 AM CDT Shortness of breath started yesterday, progressively worse over night. She has been taking advair, she states she has done 4 nebs, both duonebs and albuterol over night, the last one en-route. Odin Mc MD - 12/30/2017 10:48 AM CDT History Chief Complaint: Shortness of Breath HPI Rajesh Stevens is a 47 year old female who presents with shortness of breath. The patient states she has gone to her urgent care for this a few times in the last 5-6 months, ever since she got sick with bronchitis. She was told she may have asthma. Her shortness of breath was more acute yesterday and progressively worsened over the night. She has been taking Advair and has done 4 nebs, both duonebs and albuterol, last one en-route. She also has a headache. She has no PCP, but was told last time she was at urgent care to follow up with a neuro intensivist physician and find a regular doctor. She hasn't donethis. Last round of steroids was about 2 weeks ago. She took tylenol and ibuprofen this morning for her headache. Allergies: No known drug allergies. Medications: The patient is currently on no regular medications. Past Medical History: Pneumothorax Past Surgical History: History reviewed. No pertinent past surgical history. Family History: History reviewed. No pertinent family history. Social History: Presents to the emergency department with her . Marital Status: Smoking status: No Alcohol use: No Review of Systems Constitutional: Negative for fever. Respiratory: Positive for shortness of breath. Neurological: Positive for headaches. All other systems reviewed and are negative. Physical Exam Patient Vitals for the past 24 hrs: BP Temp Temp src Pulse Heart Rate Resp SpO2 12/30/17 1515 117/68 - - - - - 90 % 12/30/17 1500 (!) 125/97 - - - - - 93 % 12/30/17 1445 122/69 - - - - - 91 % 12/30/17 1430 128/75 - - - - - 95 % 12/30/17 1415 136/77 - - - - - 95 % 12/30/17 1400 154/74 - - - - - 92 % 12/30/17 1345 136/66 - - - - - 93 % 12/30/17 1330 117/64 - - - - - 92 % 12/30/17 1315 122/74 - - - - - 91 % 12/30/17 1148 - - - - - - 93 % 12/30/17 1147 - - - - - - 93 % 12/30/17 1146 - - - - - - 91 % 12/30/17 1145 - - - - - - 92 % 12/30/17 1143 - - - - - - 94 % 12/30/17 1142 - - - - - - 94 % 12/30/17 1130 126/73 - - - - - (!) 86 % 12/30/17 1117 - - - - - - (!) 87 % 12/30/17 1116 - - - - - - (!) 86 % 12/30/17 1115 127/73 - - - - - (!) 87 % 12/30/17 1050 148/70 98 ??F (36.7 ??C) Temporal 104 104 30 92 % Physical Exam Nursing note and vitals reviewed. Constitutional: Cooperative. HENT: Mouth/Throat: Moist mucous membranes. Eyes: EOMI, nonicteric sclera Cardiovascular: tachycardic, regular rhythm, no murmurs, rubs, or gallops Pulmonary/Chest: Effort normal. Diffuse bilateral wheezing - present after several nebs. No increased work of breathing. Abdominal: Soft. Nontender, nondistended, no guarding or rigidity. BS present. Musculoskeletal: Normal range of motion. Neurological: Alert. Moves all extremities spontaneously. Skin: Skin is warm and dry. No rash noted. Psychiatric: Normal mood and affect. Emergency Department Course Imaging: Radiology findings were communicated with the patient and Admitting MD who voiced understanding of the findings. Chest XR, PA & LAT Final Result IMPRESSION: Clear lungs. SHANE DOWLING MD Laboratory: Laboratory findings were communicated with the patient and Admitting MD who voiced understanding of the findings. Labs Ordered and Resulted from Time of ED Arrival Up to the Time of Departure from the ED COMPREHENSIVE METABOLIC PANEL - Abnormal; Notable for the following: Result Value Glucose 120 (*) All other components within normal limits CBC WITH PLATELETS DIFFERENTIAL (WBC 8.3, HGB 13.6, PLT 208) TROPONIN I NT PROBNP INPATIENT D DIMER QUANTITATIVE Interventions: Medications ipratropium - albuterol 0.5 mg/2.5 mg/3 mL (DUONEB) neb solution 6 mL (6 mLs Nebulization Given 12/30/17 1143) methylPREDNISolone sodium succinate (solu-MEDROL) injection 125 mg (125 mg Intravenous Given 145) ipratropium - albuterol 0.5 mg/2.5 mg/3 mL (DUONEB) neb solution 3 mL (3 mLs Nebulization Given 12/30/17 1321) Emergency Department Course: Nursing notes and vitals reviewed. I performed an exam of the patient as documented above. IV was inserted and blood was drawn for laboratory testing, results above. The patient was sent for imaging while in the emergency department, results above. 1250: Patient rechecked and updated. Patient still wheezing, she is down to 86% on room air so we started on 2L NC. 1420: I spoke with Dr. Funk of the hospitalist service regarding patient's presentation, findings,and plan of care. I discussed the treatment plan with the patient. They expressed understanding of this plan and consented to admission. I discussed the patient with Dr. Funk, who will admit the patient to a monitoredbed for further evaluation and treatment. I personally reviewed the laboratory and imaging results with the Patient and answered all related questions prior to admission. Impression & Plan Medical Decision Making: Rajesh Stevens is a 47 year old female who presents to the emergency department for evaluationof dyspnea. Pt has diffuse wheezing on exam. This is poorly improved after several nebs. She's requiring oxygen maintaining sats of 90-91% on 3L NC O2. CXR negative for infiltrate. D-dimer neg to rule out PE. Pt doesn't have a documented hx of asthma or COPD, but she does exhibit some form of an obstructive lung disease. Steroids initiated in ED. No indication for antibx at this time. Discussed with Dr. Funk who accepts for admission. Diagnosis: ICD-10-CM 1. Reactive airway disease with acute exacerbation, unspecified asthma severity, unspecified whetherpersistent J45.901 Disposition: Admitted Scribe Disclosure: Denzel Cantrell, am serving as a scribe at 11:19 AM on 12/30/2017 to document services personally performed by Odin Mc MD, based on my observations and the provider's statementsto me. [facility] EMERGENCY DEPARTMENT Odin Mc MD 12/30/17 1826 documented in this encounter Miscellaneous Notes Plan of Care - Shakira Chacko RN - 01/01/2018 3:24 PM CDT Problem: Patient Care Overview Goal: Plan of Care/Patient Progress Review Outcome: Improving Patient hospitalized for probable asthma exacerbation. O2 weaned to room air without difficulty. Plan for discharge this evening to home with duo-nebs and steroid taper. Ambulating independently. Plan of Care - Brigitte Lane RN - 01/01/2018 6:29 AM CDT Problem: Patient Care Overview Goal: Plan of Care/Patient Progress Review Outcome: No Change VSS, weaned to 1L O2 this am with sats in the upper 90's. Lungs continue to be wheezy, prn albuterolneb x1 and prn xopenex neb x1. Reports dyspnea with exertion improving, able to walk halls this am. Up independent. CBC and BMP to be checked this am. Will monitor. Plan of Care - Melani Last RN - 12/31/2017 6:06 PM CDT A&O x 4. Up independent. Denies pain. Exp. Wheezes noted. O2 2L. SOB improved since this am. NS at 100 ml/hr. Provider Notification - Melani Last RN - 12/31/2017 2:[address] Martínez notified: lactic acid of 3.5 Plan of Care - Brigitte Lane RN - 12/31/2017 6:09 AM CDT Problem: Patient Care Overview Goal: Plan of Care/Patient Progress Review Outcome: No Change HR tachy in the 110's. Continues on 3L O2 with sats 91-93%. Other VSS. Denies pain. Lungs with inspiratory and expiratory wheezing t/o. On IV solumedrol and nebs. RT following. Up ind. Will monitor. Plan of Care - Melani Last RN - 12/30/2017 9:53 PM CDT A&O x 4. Up independent. Breathing tx QID and PRN, wheezing noted, SOB with activity. IV solumedrol. NS at 100 ml/hr and 1L bolus x 2. Provider Notification - Melani Last RN - 12/30/2017 4:[address] Funk notified: Lactic acid 3.6- 1L bolus ordered and given Dr. Funk notified: Lactic acid 4.7 1L bolus ordered and given Hospitalist notified: Lactic acid of 3.9 Pharmacy-Admission Medication History - Rosa Harp - 12/30/2017 2:23 PM CDT Admission medication history interview status for this patient is complete. See [facility] admission navigator for allergy information, prior to admission medications and immunization status. Medication history interview source(s):Patient Medication history resources (including written lists, pill bottles, clinic record):care everywhere Primary pharmacy:[facility] in [facility] Changes made to [employer] medication list: Added: all Deleted: none Changed: none Actions taken by pharmacist (provider contacted, etc):none Additional medication history information:None Medication reconciliation/reorder completed by provider prior to medication history? No Do you take OTC medications (eg tylenol, ibuprofen, fish oil, eye/ear drops, etc)? Y(Y/N) Prior to Admission medications Medication Sig Last Dose Taking? Auth Provider albuterol (2.5 MG/3ML) 0.083% neb solution Take 1 vial by nebulization every 4 hours as needed for wheezing Yes Unknown, Entered By History ipratropium - albuterol 0.5 mg/2.5 mg/3 mL (DUONEB) 0.5-2.5 (3) MG/3ML neb solution Take 1 vial by nebulization 3 times daily Yes Unknown, Entered By History Multiple Vitamins-Minerals (MULTIVITAMIN ADULT PO) Take 1 tablet by mouth daily Yes Unknown, EnteredBy History ARIPiprazole (ABILIFY) 10 MG tablet Take 10 mg by mouth daily Yes Unknown, Entered By History buPROPion (WELLBUTRIN XL) 150 MG 24 hr tablet Take 450 mg by mouth daily Yes Unknown, Entered By History zolpidem (AMBIEN) 10 MG tablet Take 5 mg by mouth At Bedtime Yes Unknown, Entered By History ALPRAZolam (XANAX) 0.5 MG tablet Take 0.5 mg by mouth daily as needed for anxiety Yes Unknown, Entered By History clonazePAM (KLONOPIN) 2 MG tablet Take 2 mg by mouth At Bedtime Yes Unknown, Entered By History methylphenidate (RITALIN) 20 MG tablet Take 20 mg by mouth 3 times daily Yes Unknown, Entered By History Associated attestation - Marisela Rudd RPH - 12/30/2017 3:13 PM CDT Med rec reviewed, agree w/interns med rec assessment. documented in this encounter Plan of Treatment Not on filedocumented as of this encounter Procedures Procedure Name Priority Date/Time Associated Comments Diagnosis PROCALCITONIN Routine 01/01/2018 7:14 AM Reactive airway Resul ts for this CDT disease with acute procedure are in exacerbation, the results unspecified asthma section. severity, unspecified whether persistent CBC WITH PLATELETS & Routine 01/01/2018 7:14 AM Reactive airwa y Results for this DIFFERENTIAL CDT disease with acute procedure are in exacerbation, the results unspecified asthma section. severity, unspecified whether persistent BASIC METABOLIC PANEL Routine 01/01/2018 7:14 AM Reactive airw ay Results for this CDT disease with acute procedure are in exacerbation, the results unspecified asthma section. severity, unspecified whether persistent LACTIC ACID WHOLE Timed 12/31/2017 1:02 PM Reactive airway R esults for this BLOOD CDT disease with acute procedure are in exacerbation, the results unspecified asthma section. severity, unspecified whether persistent LACTIC ACID WHOLE STAT 12/31/2017 7:55 AM Reactive airway R esults for this BLOOD CDT disease with acute procedure are in exacerbation, the results unspecified asthma section. severity, unspecified whether persistent ALPHA 1 ANTITRYPSIN Routine 12/31/2017 6:36 AM Reactive airway Results for this TOTAL CDT disease with acute procedure are in exacerbation, the results unspecified asthma section. severity, unspecified whether persistent LACTIC ACID WHOLE Timed 12/30/2017 10:33 Reactive airway Res ults for this BLOOD PM CDT disease with acute procedure are in exacerbation, the results unspecified asthma section. severity, unspecified whether persistent LACTIC ACID WHOLE Timed 12/30/2017 6:57 PM Reactive airway R esults for this BLOOD CDT disease with acute procedure are in exacerbation, the results unspecified asthma section. severity, unspecified whether persistent PLATELET COUNT Routine 12/30/2017 3:42 PM Reactive airway Resu lts for this CDT disease with acute procedure are in exacerbation, the results unspecified asthma section. severity, unspecified whether persistent LACTIC ACID WHOLE STAT 12/30/2017 3:42 PM Reactive airway R esults for this BLOOD CDT disease with acute procedure are in exacerbation, the results unspecified asthma section. severity, unspecified whether persistent XR CHEST 2 VIEWS STAT 12/30/2017 1:00 PM Resul ts for this CDT procedure are i n the results section. CBC WITH PLATELETS & STAT 12/30/2017 11:45 Res ults for this DIFFERENTIAL AM CDT procedure are i n the results section. TROPONIN I STAT 12/30/2017 11:45 Results for this AM CDT procedure are i n the results section. NT PROBNP INPATIENT STAT 12/30/2017 11:45 Resu lts for this AM CDT procedure are i n the results section. D DIMER QUANTITATIVE STAT 12/30/2017 11:45 Res ults for this AM CDT procedure are i n the results section. COMPREHENSIVE STAT 12/30/2017 11:45 Results fo r this METABOLIC PANEL AM CDT procedure ar e in the results section. documented in this encounter Results Procalcitonin (01/01/2018 7:14 AM CDT) P athologist Signature Procalcitonin <0.05 ng/ml 01/01/2018 [place] 1:54 PM CDT [facility] Comment: <0.05 ng/ml ??Normal ??Recommendation: V ilir low risk of bacterial infection. Discourage antibiotics unless strong cli nical suspicion for serious infection. Specimen Anatomical Collection Method Collection Time Receive d Time (Source) Location / / Volume Laterality 01/01/2018 7:14 AM 8 7:15 CDT AM CDT Tarah Martínez MD LAB - BLOOD ORDERABLES Performing Organization Address City/State/ZIP Code Phon e Number M [facility] [address] [address] [phone] [facility] [address] [address], [place] [phone] (ABNORMAL) Basic metabolic panel (01/01/2018 7:14 AM CDT) P athologist Signature Sodium 145 (H) 133 - 144 01/01/2018 [facility] mmol/L 7:54 AM [facility] Potassium 3.7 3.4 - 5.3 01/01/2018 [place] mmol/L 7:54 AM [facility] Chloride 115 (H) 94 - 109 01/01/2018 [place] mmol/L 7:54 AM [facility] Carbon Dioxide 21 20 - 32 01/01/2018 [place] mmol/L 7:54 AM [facility] Anion Gap 9 3 - 14 01/01/2018 [place] mmol/L 7:54 AM [facility] Glucose 133 (H) 70 - 99 01/01/2018 [facility] mg/dL 7:54 AM [facility] Urea Nitrogen 14 7 - 30 01/01/2018 [place] mg/dL 7:54 AM [facility] Creatinine 0.76 0.52 - 01/01/2018 [facility] 1.04 mg/dL 7:54 AM [facility] GFR Estimate 81 >60 01/01/2018 [facility] mL/min/1.7 7:[address] Comment: Non GFR Calc GFR Estimate If >90 >60 mL/min/1.7m2 01/01/2018 7:54 A M [facility] Comment: GFR Calc Calcium 9.2 8.5 - 10.1 mg/dL 01/01/2018 7:54 AM [facility] Specimen Anatomical Collection Method Collection Time Receive d Time (Source) Location / / Volume Laterality Blood specimen 01/01/2018 7:14 AM 018 7:15 (specimen) CDT AM [facility] Tarah Martínez MD LAB - BLOOD ORDERABLES Performing Organization Address City/State/ZIP Code Phon e Number M [facility] [address], [place] [address] [facility] [address], [place] [address] [facility] [phone] (ABNORMAL) CBC with platelets differential (01/01/2018 7:14 AM CDT) Patholo gist Method Time Signature WBC 16.6 (H) 4.0 - 01/01/2018 [facility] 11.0 7:39 AM [facility] 10e9/L [facility] RBC Count 4.01 3.8 - 5.2 01/01/2018 [facility] 10e12/L 7:39 AM [facility] Hemoglobin 12.2 11.7 - 01/01/2018 [facility] 15.7 g/dL 7:39 AM [facility] Hematocrit 37.1 35.0 - 01/01/2018 [facility] 47.0 % 7:39 AM [facility] MCV 93 78 - 100 01/01/2018 [facility] fl 7:39 AM [facility] MCH 30.4 26.5 - 01/01/2018 [facility] 33.0 pg 7:39 AM [facility] MCHC 32.9 31.5 - 01/01/2018 [facility] 36.5 g/dL 7:39 AM [facility] RDW 13.3 10.0 - 01/01/2018 [facility] 15.0 % 7:39 AM [facility] Platelet Count 219 150 - 450 01/01/2018 [facility] 10e9/L 7:39 AM [facility] Diff Method Automated 01/01/2018 [facility] Method 7:39 AM [facility] % Neutrophils 91.6 % 01/01/2018 [facility] 7:39 AM [facility] % Lymphocytes 4.9 % 01/01/2018 [facility] 7:39 AM [facility] % Monocytes 2.6 % 01/01/2018 [facility] 7:39 AM [facility] % Eosinophils 0.0 % 01/01/2018 [facility] 7:39 AM [facility] % Basophils 0.1 % 01/01/2018 [facility] 7:39 AM [facility] % Immature 0.8 % 01/01/2018 [facility] Granulocytes 7:39 AM [facility] Nucleated RBCs 0 0 /100 01/01/2018 [facility] 7:39 AM [facility] Absolute 15.2 (H) 1.6 - 8.3 01/01/2018 [facility] Neutrophil 10e9/L 7:39 AM [facility] Absolute 0.8 0.8 - 5.3 01/01/2018 [facility] Lymphocytes 10e9/L 7:39 AM [facility] Absolute 0.4 0.0 - 1.3 01/01/2018 [facility] Monocytes 10e9/L 7:39 AM [facility] Absolute 0.0 0.0 - 0.7 01/01/2018 [place] Eosinophils 10e9/L 7:39 AM [facility] Absolute 0.0 0.0 - 0.2 01/01/2018 [place] Basophils 10e9/L 7:39 AM [facility] Abs Immature 0.1 0 - 0.4 01/01/2018 [facility] Granulocytes 10e9/L 7:39 AM [facility] Absolute 0.0 01/01/2018 [place] Nucleated RBC 7:39 AM [facility] Specimen Anatomical Collection Method Collection Time Receive d Time (Source) Location / / Volume Laterality Blood specimen 01/01/2018 7:14 AM 018 7:15 (specimen) CDT AM CDT Tarah Martínez MD LAB - BLOOD ORDERABLES Performing Organization Address City/[facility]/ZIP Code Phon e Number [facility] [address], [place] [address] [place] [address] [address] [place] [address], [facility] [phone] (ABNORMAL) Lactic acid whole blood (12/31/2017 1:02 PM CDT) P athologist Signature Lactic Acid 3.5 (H) 0.7 - 2.0 12/31/2017 [place] mmol/L 1:22 PM [facility] Specimen Anatomical Collection Method Collection Time Receive d Time (Source) Location / / Volume Laterality Blood specimen 12/31/2017 1:02 PM 018 1:03 (specimen) CDT PM CDT Tarah Martínez MD LAB - BLOOD ORDERABLES Performing Organization Address City/State/ZIP Code Phon e Number M [facility] [address], [place] [address] [facility] [address] [place], [place] [address], [facility] [phone] (ABNORMAL) Lactic acid level STAT (12/31/2017 7:55 AM CDT) P athologist Signature Lactic Acid 2.5 (H) 0.7 - 2.0 12/31/2017 [facility] mmol/L 8:05 AM CDT [facility] Specimen Anatomical Collection Method Collection Time Receive d Time (Source) Location / / Volume Laterality Blood specimen 12/31/2017 7:55 AM 018 7:56 (specimen) CDT AM CDT Chance Funk MD, MD LAB - BLOOD ORDERABLES Performing Organization Address City/[facility]/ZIP Code Phon e Number [place] [address] [address] [place] [address] [phone] (ABNORMAL) [id number] total (12/31/2017 6:36 AM CDT) Analysis Performed At Patho logist [place] Signature Alpha 1 48 (L) 80 - 200 01/01/2018 [facility] Antitrypsin mg/dL 10:18 AM CDT [facility] Specimen Anatomical Collection Method Collection Time Receive d Time (Source) Location / / Volume Laterality Blood specimen 12/31/2017 6:36 AM 018 6:37 (specimen) CDT AM CDT Chance Funk MD, MD LAB - BLOOD ORDERABLES Performing Organization Address City/[facility]/ZIP Code Phon e Number [address] [address] [facility] (ABNORMAL) Lactic acid whole blood (12/30/2017 10:33 PM CDT) P athologist Signature Lactic Acid 3.9 (H) 0.7 - 2.0 12/30/2017 [facility] mmol/L 10:41 PM CDT [facility] Specimen Anatomical Collection Method Collection Time Receive d Time (Source) Location / / Volume Laterality Blood specimen 12/30/2017 10:33 8 (specimen) PM CDT 10:34 PM CDT Chance Funk MD, MD LAB - BLOOD ORDERABLES Performing Organization Address City/State/ZIP Code Phon e Number M [facility] [address], [place] [address] [facility] [address], [place] [address], [facility] [phone] (ABNORMAL) Lactic acid whole blood (12/30/2017 6:57 PM CDT) P athologist Signature Lactic Acid 4.7 (HH) 0.7 - 2.0 12/30/2017 [facility] mmol/L 7:06 PM CDT [facility] Comment: Critical Value called to and read back osmani LUNDBERG STACY (MS5) 4.14.18 AT 1906 J MM Specimen Anatomical Collection Method Collection Time Receive d Time (Source) Location / / Volume Laterality Blood specimen 12/30/2017 6:57 PM 018 6:58 (specimen) CDT PM CDT Chance Funk MD, MD LAB - BLOOD ORDERABLES Performing Organization Address [facility] Code Phon e Number [facility] [address], [place] [address] [facility] [address], [place] [address], [facility] [phone] (ABNORMAL) Lactic acid level STAT (12/30/2017 3:42 PM CDT) athologist Signature Lactic Acid 3.6 (H) 0.7 - 2.0 12/30/2017 [facility] mmol/L 4:01 PM [facility] Specimen Anatomical Collection Method Collection Time Receive d Time (Source) Location / / Volume Laterality Blood specimen 12/30/2017 3:42 PM 018 3:43 (specimen) CDT PM CDT Chance Funk MD, MD LAB - BLOOD ORDERABLES Performing Organization Address City/[facility]/ZIP Code Phon e Number [facility] [address], [place] [address] [facility] [address], [place] [address], [facility] [phone] Platelet count (12/30/2017 3:42 PM CDT) athologist Signature Platelet Count 206 150 - 450 12/30/2017 [facility] 10e9/L 3:56 PM CDT [facility] Specimen Anatomical Collection Method Collection Time Receive d Time (Source) Location / / Volume Laterality Blood specimen 12/30/2017 3:42 PM 018 3:43 (specimen) CDT PM CDT Chance Funk MD, MD LAB - BLOOD ORDERABLES Performing Organization Address City/State/ZIP Code Phon e Number [facility] [address], [place] [address] [facility] [address] [address] [phone] Chest XR, PA & LAT (12/30/2017 1:00 PM CDT) Anatomical Region Laterality Modality Chest Digital Radiography Specimen (Source) Anatomical Location Collection Method / Collectio n Time Received Time / Laterality Volume Impressions 12/30/2017 2:27 PM CDT IMPRESSION: Clear lungs. SHANE DOWLING MD Narrative 12/30/2017 2:27 PM CDT CHEST TWO VIEWS ??12/30/2017 1:00 PM COMPARISON: None. HISTORY: Cough, dyspnea. FINDINGS: The cardiac silhouette, pulmon megan vasculature, lungs and pleural spaces are within normal limits. Procedure Note Shane Dowling MD - 12/30/2017Forma tting of this note might be different from the original. CHEST TWO VIEWS 12/30/2017 1:00 PM COMPARISON: None. HISTORY: Cough, dyspnea. FINDINGS: The cardiac silhouette, pulmon megan vasculature, lungs and pleural spaces are within normal limits. IMPRESSION: Clear lungs. SHANE DOWLING MD Odin Mc MD IMG DIAGNOSTIC IMAGING ORDER RENA D dimer quantitative (12/30/2017 11:45 AM CDT) athologist Signature D Dimer <0.3 0.0 - 0.50 12/30/2017 [facility] ug/ml FEU 12:15 PM CDT HOSPITAL Comment: This D-dimer assay is intended for use i n conjunction with a clinical pretest probability assessment model to exclude pulmonary embolism (PE) and deep venous thrombosis (DVT) in outpatients s uspected of PE or DVT. The cut-off value is 0.5 ug/mL FEU. Specimen Anatomical Collection Method Collection Time Receive d Time (Source) Location / / Volume Laterality Blood specimen 12/30/2017 11:45 8 (specimen) AM CDT 11:53 AM CDT Odin Mc MD LAB - BLOOD ORDERABLES Performing Organization Address City/[facility] e Number [place] [address], [place] [address] [place] [address] [address] [place] [address], [facility] [phone] BNP (12/30/2017 11:45 AM CDT) athologist Signature N-Terminal Pro 27 0 - 450 12/30/2017 [facility] BNP Inpatient pg/mL 12:18 PM [facility] Comment: Reference range shown and results flagge d as abnormal are suggested inpatient cut points for confirming diagnosis if C HF in an acute setting. Establishing a baseline value for each individual williams ent is useful for follow-up. An inpatient or emergency department NT-pro PBNP <300 pg/mL effectively rules out acute CHF, with 99% negative predictive value. The outpatient non-acute reference range for ruling out CHF is: 0-125 pg/mL (age 18 to less than 75) 0-450 pg/mL (age 75 yrs and older) Specimen Anatomical Collection Method Collection Time Receive d Time (Source) Location / / Volume Laterality Blood specimen 12/30/2017 11:45 8 (specimen) AM CDT 11:53 AM CDT Odin Mc MD LAB - BLOOD ORDERABLES Performing Organization Address [facility] Phon e Number [place] [address] [address], [place] [address] [place] [address] [address] [place], [place] [address], [facility] [phone] Troponin I (12/30/2017 11:45 AM CDT) athologist Signature Troponin I ES <0.015 0.000 - 12/30/2017 [facility] 0.045 ug/L 12:18 PM [facility] Comment: The 99th percentile for upper reference range is 0.045 ug/L. ??Troponin values in the range of 0.045 - 0.120 ug/L may b e associated with risks of adverse clinical events. Specimen Anatomical Collection Method Collection Time Receive d Time (Source) Location / / Volume Laterality Blood specimen 12/30/2017 11:45 8 (specimen) AM CDT 11:53 AM CDT Odin Mc MD LAB - BLOOD ORDERABLES Performing Organization Address City/State/ZIP Code Phon [place] [address] [address] [place] [address] [place] [address] [phone] (ABNORMAL) Comprehensive metabolic panel (12/30/2017 11:45 AM CDT) [facility] Sodium 142 133 - 144 12/30/2017 [facility] mmol/L 12:18 PM [facility] Potassium 4.1 3.4 - 5.3 12/30/2017 [place] mmol/L 12:18 PM [facility] Chloride 108 94 - 109 12/30/2017 [place] mmol/L 12:18 PM [facility] Carbon Dioxide 28 20 - 32 12/30/2017 [place] mmol/L 12:18 PM [facility] Anion Gap 6 3 - 14 12/30/2017 [place] mmol/L 12:18 PM [facility] Glucose 120 (H) 70 - 99 12/30/2017 [place] mg/dL 12:18 PM [facility] Urea Nitrogen 11 7 - 30 12/30/2017 [place] mg/dL 12:18 PM [facility] Creatinine 0.84 0.52 - 12/30/2017 [facility] 1.04 mg/dL 12:18 PM [facility] GFR Estimate 73 >60 12/30/2017 [facility] mL/min/1.7 12:[address] Comment: Non GFR Calc GFR Estimate If 88 >60 mL/min/1.7m2 12/30/2017 12:18 PM [facility] Comment: GFR Calc Calcium 8.9 8.5 - 10.1 mg/dL 12/30/2017 12:18 PM [facility] Bilirubin Total 0.5 0.2 - 1.3 mg/dL 12/30/2017 12:18 P [facility] Albumin 3.7 3.4 - 5.0 g/dL 12/30/2017 12:18 PM [facility] Protein Total 7.6 6.8 - 8.8 g/dL 12/30/2017 12:18 PM [facility] Alkaline Phosphatase 66 40 - 150 U/L 12/30/2017 12:18 PM [facility] ALT 41 0 - 50 U/L 12/30/2017 12:18 PM [facility] AST 22 0 - 45 U/L 12/30/2017 12:18 PM [facility] Specimen Anatomical Collection Method Collection Time Receive d Time (Source) Location / / Volume Laterality Blood specimen 12/30/2017 11:45 8 (specimen) AM CDT 11:53 AM CDT Odin Mc MD LAB - BLOOD ORDERABLES Performing Organization Address City/State/ZIP Code Phon [place] Number [place] [address] [address] [place] [address] [phone] CBC with platelets differential (12/30/2017 11:45 AM CDT) [facility] gist Method Time Signature WBC 8.3 4.0 - 12/30/2017 [facility] 11.0 11:58 AM [facility] 10e9/L [facility] RBC Count 4.41 3.8 - 5.2 12/30/2017 [facility] 10e12/L 11:58 AM [facility] Hemoglobin 13.6 11.7 - 12/30/2017 [facility] 15.7 g/dL 11:58 AM [facility] Hematocrit 40.7 35.0 - 12/30/2017 [facility] 47.0 % 11:58 AM [facility] MCV 92 78 - 100 12/30/2017 [facility] fl 11:58 AM [facility] MCH 30.8 26.5 - 12/30/2017 [facility] 33.0 pg 11:58 AM [facility] MCHC 33.4 31.5 - 12/30/2017 [facility] 36.5 g/dL 11:58 AM [facility] RDW 12.7 10.0 - 12/30/2017 [facility] 15.0 % 11:58 AM [facility] Platelet Count 208 150 - 450 12/30/2017 [facility] 10e9/L 11:58 AM [facility] Diff Method Automated 12/30/2017 [facility] Method 11:58 AM [facility] % Neutrophils 80.2 % 12/30/2017 [facility] 11:58 AM [facility] % Lymphocytes 9.5 % 12/30/2017 [facility] 11:58 AM [facility] % Monocytes 4.8 % 12/30/2017 [facility] 11:58 AM [facility] % Eosinophils 4.9 % 12/30/2017 [facility] 11:58 AM [facility] % Basophils 0.4 % 12/30/2017 [facility] 11:58 AM [facility] % Immature 0.2 % 12/30/2017 [facility] Granulocytes 11:58 AM [facility] Nucleated RBCs 0 0 /100 12/30/2017 [facility] 11:58 AM [facility] Absolute 6.7 1.6 - 8.3 12/30/2017 [facility] Neutrophil 10e9/L 11:58 AM [facility] Absolute 0.8 0.8 - 5.3 12/30/2017 [facility] Lymphocytes 10e9/L 11:58 AM [facility] Absolute 0.4 0.0 - 1.3 12/30/2017 [facility] Monocytes 10e9/L 11:58 AM [facility] Absolute 0.4 0.0 - 0.7 12/30/2017 [facility] Eosinophils 10e9/L 11:58 AM [facility] Absolute 0.0 0.0 - 0.2 12/30/2017 [facility] Basophils 10e9/L 11:58 AM [facility] Abs Immature 0.0 0 - 0.4 12/30/2017 [facility] Granulocytes 10e9/L 11:58 AM [facility] Absolute 0.0 12/30/2017 [facility] Nucleated RBC 11:58 AM [facility] Specimen Anatomical Collection Method Collection Time Receive d Time (Source) Location / / Volume Laterality Blood specimen 12/30/2017 11:45 8 (specimen) AM CDT 11:53 AM CDT Odin Mc MD LAB - BLOOD ORDERABLES Performing Organization Address City/State/ZIP Code Phon [place] Number [place] [address] [address] [place] [address] [place] [address] [phone] documented in this encounter Visit Diagnoses Diagnosis Reactive airway disease with acute exace rbation, unspecified asthma severity, unspecified whether persistent Acute respiratory failure with hypoxia ( H) Acute respiratory failure Hypoxia Hypoxemia documented in this encounter Administered Medications Inactive Administered Medications - up to 3 most recent administrations Medication Order MAR Action Action Date Dose Rate Site 0.9% sodium chloride BOLUS New Bag 12/30/2017 4:56 PM CDT 1,000 mLs 500 mL/hr Intravenous, 1,000 mL, ONCE, at 500 mL/hr, Administer over 2 Hours, On 12/30/17 at 1700, For 1 dose 0.9% sodium chloride BOLUS Rate/Dose Change 12/30/2017 7:20 PM CDT 500 mLs Intravenous, 500 mL, ONCE, On 12/30/17 at 1915, For 1 dose 0.9% sodium chloride BOLUS New Bag 12/31/2017 10:02 AM CDT 500 mLs 500 mL/hr Intravenous, 500 mL, ONCE, at 500 mL/hr, Administer over 1 Hours, On 12/31/17 at 0945, For 1 dose acetaminophen (TYLENOL) tablet 650 mg Given 12/31/2017 6:55 PM CDT 650 mg 650 mg, Oral, EVERY 4 HOURS PRN, mild pain, Starting on 12/30/17 at 1538, Alternate ibuprofen (if ordered) with acetaminophen. Maximum acetaminophen dose from all sources = 75 mg/kg/day not to exceed 4 grams/day. albuterol neb solution 2.5 mg Given 12/31/2017 9:44 PM CDT 2.5 mg 2.5 mg (3 mL), Nebulization, EVERY 2 HOURS PRN, shortness of breath, Starting on 12/30/17 at 1538 Given 12/31/2017 5:49 AM CDT 2.5 mg Given 12/30/2017 6:15 PM CDT 2.5 mg ARIPiprazole (ABILIFY) tablet 10 mg Given 01/01/2018 8:18 AM CDT 10 mg 10 mg, Oral, DAILY, First dose on 12/31/17 at 1000 Given 12/31/2017 10:10 AM CDT 10 mg buPROPion (WELLBUTRIN XL) 24 hr tablet 4 50 mg Given 01/01/2018 8:18 AM CDT 450 mg 450 mg, Oral, DAILY, First dose on 12/31/17 at 1000, DO NOT CRUSH. Given 12/31/2017 10:09 AM CDT 450 mg clonazePAM (klonoPIN) tablet 2 mg Given 12/31/2017 10:41 PM CDT 2 mg 2 mg, Oral, AT BEDTIME, First dose on 12/30/17 at 2200 Given 12/30/2017 10:11 PM CDT 2 mg heparin sodium PF injection 5,000 Units Given 01/01/2018 8:20 AM CDT 5,000 Units 5,000 Units, Subcutaneous, EVERY 12 HOURS, First dose on 12/30/17 at 2000, HOLD heparin IF platelet count falls below 50% baseline or less than 100,000 / ??L and notify provider. Use this product If CrCl less than 30 mL/min. High concentration heparin. Not for line flush or cath care. Given 12/31/2017 9:06 PM CDT 5,000 Units Given 12/31/2017 8:24 AM CDT 5,000 Units ipratropium (ATROVENT) 0.02 % neb solution Given 01/01/2018 12:06 PM CDT 0.5 mg 0.5 mg 0.5 mg, Nebulization, 4 TIMES DAILY RT, First dose on 12/31/17 at 1200 Given 01/01/2018 8:43 AM CDT 0.5 mg Given 12/31/2017 7:35 PM CDT 0.5 mg ipratropium - albuterol 0.5 mg/2.5 mg/3 mL Given 12/30/2017 1:21 PM CDT 3 mLs (DUONEB) neb solution 3 mL 3 mL, Nebulization, ONCE, On 12/30/17 at 1251, For 1 dose ipratropium - albuterol 0.5 mg/2.5 mg/3 mL Given 12/30/2017 4:06 PM CDT 3 mLs (DUONEB) neb solution 3 mL 3 mL, Nebulization, EVERY 4 HOURS WHILE AWAKE, First dose on 12/30/17 at 1600 ipratropium - albuterol 0.5 mg/2.5 mg/3 mL Given 12/31/2017 7:39 AM CDT 3 mLs (DUONEB) neb solution 3 mL 3 mL, Nebulization, 4 TIMES DAILY RT, First dose (after last modification) on 12/30/17 at 2000 Given 12/30/2017 7:58 PM CDT 3 mLs ipratropium - albuterol 0.5 mg/2.5 mg/3 mL Given 12/30/2017 11:4 3 AM CDT 6 mLs (DUONEB) neb solution 6 mL 6 mL, Nebulization, ONCE, On 12/30/17 at 1129, For 1 dose levalbuterol (XOPENEX) neb solution 0.63 mg Given 01/01/2018 8:43 AM CDT 0.63 mg 0.63 mg, Nebulization, EVERY 8 HOURS, First dose on 12/31/17 at 1000, Lactic acidosis, Levalbuterol orders will be substituted to albuterol unless intolerance is documented here: Other reaction (documented in order comments) Given 12/31/2017 11:50 PM CDT 0.63 mg Given 12/31/2017 3:19 PM CDT 0.63 mg levalbuterol (XOPENEX) neb solution 0.63 mg Given 01/01/2018 6:14 AM CDT 0.63 mg 0.63 mg, Nebulization, ONCE, On 12/31/17 at 2130, For 1 dose, Levalbuterol orders will be substituted to albuterol unless intolerance is documented here: Other reaction (documented in order comments) methylphenidate (RITALIN) tablet 20 mg Given 01/01/2018 1:20 PM CDT 20 mg 20 mg, Oral, 3 TIMES DAILY, First dose on 12/31/17 at 1000 Given 01/01/2018 8:18 AM CDT 20 mg Given 12/31/2017 9:06 PM CDT 20 mg methylPREDNISolone sodium succinate Given 12/30/2017 11:45 AM CD T 125 mg (solu-MEDROL) injection 125 mg 125 mg, Intravenous, ONCE, On 12/30/17 at 1129, For 1 dose, Give Doses 125mg and less IV Push over 2-3 minutes - reconstitute with 2 mL of bacteriostatic water if no diluent is provided. Doses greater than 125 mg need to be in at least 50 mL IVPB. methylPREDNISolone sodium succinate Given 01/01/2018 5:56 AM CDT 62.5 mg (solu-MEDROL) injection 62.5 mg 62.5 mg (rounded from 60 mg), Intravenous, EVERY 6 HOURS, First dose on 12/30/17 at 1700, First dose now if not given in ED, or 6 hours after ED dose. Give Doses 125mg and less IV Push over 2-3 minutes - reconstitute with 2 mL of bacteriostatic water if no diluent is provided. Doses greater than 125 mg need to be in at least 50 mL IVPB. Given 01/01/2018 12:00 AM CDT 62.5 mg Given 12/31/2017 5:42 PM CDT 62.5 mg predniSONE (DELTASONE) tablet 60 mg 60 mg, Oral, DAILY, First dose on Mon01/02/18 at 0900 sodium chloride 0.9% infusion New Bag 12/31/2017 3:06 PM CDT 100 mL/hr at 100 mL/hr, Intravenous, CONTINUOUS, Starting on 12/30/17 at 1545, Until 01/01/18 at 1759 New Bag 12/31/2017 11:09 AM CDT 100 mL/hr New Bag 12/30/2017 10:11 PM CDT 100 mL/hr zolpidem (AMBIEN) tablet 5 mg Given 12/31/2017 10:41 PM CDT 5 mg 5 mg, Oral, AT BEDTIME, First dose on 12/30/17 at 2200 Given 12/30/2017 10:11 PM CDT 5 mg documented in this encounter Active and Recently Administered Medications Times are shown in CDT. Scheduled Medication Order 12/30/2017 12/31/2017 01/01/2018 0.9% sodium chloride BOLUS (COMPLETED) 1656 (New Bag - Provider: Melani Last RN) Intravenous, 1,000 mL, ONCE, at 500 mL/h r, Administer over 2 Hours, 12/30/17 at 1700, For 1 dose 0.9% sodium chloride BOLUS 1920 (Rate/Dose Change - Pr ovider: Melani Last RN - Comment: bolus)192 (Canceled Entry - Provider: Melani Last RN) Intravenous, 500 mL, ONCE, 12/30/17 at 1915, For 1 dose 0.9% sodium chloride BOLUS (COMPLETED) 1 002 (New Bag - Provider: Melani Last RN) Intravenous, 500 mL, ONCE, at 500 mL/hr, Administer over 1 Hours, 12/31/17 at 0945, For 1 dose ARIPiprazole (ABILIFY) tablet 10 mg 1010 (Given - Provider: Melani Last RN) 0818 (Given - Provider: Shakira Chacko RN) 10 mg, Oral, DAILY, First dose on 12/31/17 at 1000 buPROPion (WELLBUTRIN XL) 24 hr tablet 450 mg 1009 (Given - Provider: Melani Last RN) 0818 (Given - Provider: Shakira Chacko RN) 450 mg, Oral, DAILY, First dose on 12/31/17 at 1000, DO NOT C MUNROE. clonazePAM (klonoPIN) tablet 2 mg 221 (Given - Provid er: Melani Last RN) 224 (Given - Provider: Kortney Perez LPN) 2 mg, Oral, AT BEDTIME, First dose on 12/30/17 at 2200 heparin sodium PF injection 5,000 Units 192 (Given - Provider: Melani Last RN) 08 (Given - Provider: Alice Avina LPN)210 (Given - Provider: Brigitte Lane RN) 0820 (Given - Provider: Shakira Chacko RN) 5,000 Units, Subcutaneous, EVERY 12 HOUR S, First dose on 12/30/17 at 2000, HOLD heparin IF platelet count falls below 50% baseline or less than 100,000 / ??L and notify provider. Use this product If CrCl less than 30 mL/min. High concentra tion heparin. Not for line flush or cath care. ipratropium (ATROVENT) 0.02 % neb solution 0.5 mg 1155 (Given - Provider: Cole Waggoner, RT)1519 (Given - Provider: Cole Waggoner, RT)1935 (Given - Provider: Yamileth Mancera RT) 0843 (Given - Provider: Merary Moreira RT)1206 (Given - Provider: Merary Moreira RT) 0.5 mg, Nebulization, 4 TIMES DAILY, First dose on 12/31/17 a t 1200 ipratropium - albuterol 0.5 mg/2.5 mg/3 mL (DUONEB) neb solution 3 mL (COMPLETED) 1321 (Given - Provider: Virginia Paula, NATHAN) 3 mL, Nebulization, ONCE, 12/30/17 at 1251, For 1 dose ipratropium - albuterol 0.5 mg/2.5 mg/3 mL (DUONEB) neb solution 3 mL (CANCELED) 1606 (Given - Provider: Cole Waggoner RT) 3 mL, Nebulization, EVERY 4 HOURS WHILE AWAKE, First dose on 12/30/17 at 1600 ipratropium - albuterol 0.5 mg/2.5 mg/3 mL (DUONEB) neb solution 3 mL (CANCELED) 1958 (Given - Provider: Meli Calhoun RT) 0739 (Given - Provider: Cole Waggoner RT) 3 mL, Nebulization, 4 TIMES DAILY, First dose on 12/30/17 at 2000 ipratropium - albuterol 0.5 mg/2.5 mg/3 mL (DUONEB) neb solution 6 mL (COMPLETED) 1143 (Given - Provider: Virginia Paula, NATHAN) 6 mL, Nebulization, ONCE, 12/30/17 at 1129, For 1 dose levalbuterol (XOPENEX) neb solution 0.63 mg 1103 (Canceled Entry - Provider: Cole Waggoner RT - Comment: correcting due times)1519 (Given - Provider: Cole Waggoner RT)2350 (Given - Provider: Yamileth Mancera, RT) 0843 (Given - Provider: Merary Moreira, RT) 0.63 mg, Nebulization, EVERY 8 HOURS, Fi rst dose on 12/31/17 at 1000, Lactic acidosis, Levalbuterol orders will be substituted to albuterol unless intolerance is documented here: Other reaction (documented in order comments) levalbuterol (XOPENEX) neb solution 0.63 mg (COMPLETED) 214 (z Missed (do not use) - Provider: Yamileth Mancera RT - Reason: Other - Comment: albuterol was given) 0614 (Given - Provider: Yamileth Mancera RT - Comment: used for prn) 0.63 mg, Nebulization, ONCE, 12/31/17 at 2130, For 1 dose, Levalbuterol orders will be substituted to albuterol unless intolerance is documented here: Other reaction (documented in order comments) methylphenidate (RITALIN) tablet 20 mg 1 009 (Given - Provider: Melani Last RN)1509 (Given - Provider: Melani Last RN)2106 (Given - Provider: Brigitte Lane RN) 0818 (Given - Provider: Shakira Chacko RN)1320 (Given - Provider: Latha Rizo LPN) 20 mg, Oral, 3 TIMES DAILY, First dose on 12/31/17 at 1000 methylPREDNISolone sodium succinate (solu-MEDROL) inje ction 125 mg (COMPLETED) 1145 (Given - Provider: Virginia Paula RN) 125 mg, Intravenous, ONCE, 12/30/17 a t 1129, For 1 dose, Give Doses 125mg and less IV Push over 2-3 minutes - reconstitute with 2 mL of bacteriostatic water if no diluent is provided. Doses greater than 125 mg need to be in at least 50 mL IVPB. methylPREDNISolone sodium succinate (solu-MEDROL) inje ction 62.5 mg (CANCELED) 1653 (Given - Provider: Melani Last RN)2211 (Given - Provider: Melani Last RN) 0543 (Given - Provider: Montse Cazares)1009 (Given - Provider: Melnai Last RN)1742 (Given - Provider: Melani Last RN) 0000 (Given - Provider: Brigitte Lane RN)0556 (Given - Provider: Brigitte Lane RN) 62.5 mg (rounded from 60 mg), Intravenou s, EVERY 6 HOURS, First dose on 12/30/17 at 1700, First dose now if not given in ED, or 6 hours after ED dose. Give Doses 125mg and less IV Push over 2-3 minut es - reconstitute with 2 mL of bacterios tatic water if no diluent is provided. Doses greater than 125 mg need to be in at least 50 mL IVPB. predniSONE (DELTASONE) tablet 60 mg 60 mg, Oral, DAILY, First dose on Mon01/02/18 at 0900 zolpidem (AMBIEN) tablet 5 mg 2211 (Given - Provider: Marcial Last RN) 2241 (Given - Provider: Kortney Perez LPN) 5 mg, Oral, AT BEDTIME, First dose on 12/30/17 at 2200 Continuous Medication Order 12/30/2017 12/31/2017 01/01/2018 sodium chloride 0.9% infusion 1657 (Canceled Entry - P rovider: Melani Last RN - Comment: will start after bolus)1859 (New Bag - Provider: Melani Last RN)2211 (New Bag - Provider: Melani Last RN) 1109 (New Bag - Provider: Alice Avina LPN)1506 (New Bag - Provider: Alice Avina LPN) at 100 mL/hr, Intravenous, CONTINUOUS, S tarting 12/30/17 at 1545, Until 01/01/18 at 1759 PRN Medication Order 12/30/2017 12/31/2017 01/01/2018 acetaminophen (TYLENOL) tablet 650 mg 18 55 (Given - Provider: Melani Last RN) 650 mg, Oral, EVERY 4 HOURS PRN, mild pa in, Starting 12/30/17 at 1538, Alternate ibuprofen (if ordered) with acetaminophen. Maximum acetaminophen dose from all sources = 75 mg/kg/day not to exceed 4 grams/day. albuterol neb solution 2.5 mg 1815 (Given - Provider: Cole Waggoner, RT) 0549 (Given - Provider: Meli Calhoun, RT)2144 (Given - Provider: Yamileth Mancera, RT) 2.5 mg (3 mL), Nebulization, EVERY 2 VICENTA RS PRN, shortness of breath / dyspnea, Starting 12/30/17 at 1538 ALPRAZolam (XANAX) tablet 0.5 mg 0.5 mg, Oral, DAILY PRN, anxiety, Starti ng Sat 12/30/17 at 1907, Avoid taking with grapefruit juice melatonin tablet 1 mg 1 mg, Oral, AT BEDTIME PRN, sleep, Start ing 12/30/17 at 1538, Do not give unless at least 6 hours of uninterrupted sleep is expected. naloxone (NARCAN) injection 0.1-0.4 mg 0.1-0.4 mg, Intravenous, EVERY 2 MIN PRN , opioid reversal, Starting 12/30/17 at 1538, For respiratory rate LESS than or EQUAL to 8. Partial reversal dose: 0.1 mg titrated q 2 minutes for Analgesia Si de Effects Monitoring Sedation Level of 3 (frequently drowsy, arousable, drifts to sleep during conversation).Full reversal dose: 0.4 mg bolus for Analgesia Side Effects Monitoring Sedation Level of 4 ( somnolent, minimal or no response to sti mulation). For ordered doses up to 2mg give IVP. Give each 0.4mg over 15 seconds in emergency situations. For non- emergent situations further dilute in 9mL of NS to facilitate titration of response. documented in this encounter Care Teams Perinatal Technician Relationship Specialty Start Date End Date [facility] - [facility] [address] [facility] [place] [address] documented as of this encounter
--- OUTSIDE RECORDS SUMMARY | 2022-08-31 15:02 | XMS_ITS | Encounter Summary ---
:1970 Author Organization [facility] Address [address] [place] [id number] Care Team Providers Name Role Phone Unavailable Primary Care Provider Unavailable Encounter Details Date Type Department Care Team Description 05/28/2010 Hospital Laboratory INTERFACED REPORT Garret Varela MD [address] [place] [address] (Wo rk) Social History Tobacco Use Types Packs/Day Years Used Date Smoking Tobacco: Never Assessed Sex Assigned at Date Recorded Not on file documented as of this encounter Plan of Treatment Not on filedocumented as of this encounter Procedures Procedure Name Priority Date/Time Associated Diagnosis Comme nts FIRST TRIMESTER Routine 05/28/2010 9:59 AM Result s for this SCRN CHROM7,18 CDT procedure are in the results section. documented in this encounter Results Hospital - FIRST TRIMESTER SCRN CHROM7,18 (05/28/2010 9:59 AM CDT) Analysis Performed At Patho logist Time Signature Lab Scanned FIRST TRI [facility] Result SCR CH7,18-Sca nned Specimen (Source) Anatomical Collection Method Collection Time Re ceived Time Location / / Volume Laterality 05/28/2010 9:59 AM CDT Abby Varela MD LABORATORY Performing Organization Address City/State/ZIP Code Phon e Number [facility] documented in this encounter Visit Diagnoses Not on filedocumented in this encounter
--- OUTSIDE RECORDS SUMMARY | 2022-08-31 15:02 | XMS_ITS | Encounter Summary ---
:1970 Author Organization [facility] Address [address] [place] [id number] Care Team Providers Name Role Phone Unavailable Primary Care Provider Unavailable Encounter Details Date Type Department Care Team Description 12/08/2010 Hospital Laboratory [facility] [place] [address] [place] [address] (Wo rk) Social History Tobacco Use Types Packs/Day Years Used Date Smoking Tobacco: Never Assessed Sex Assigned at Date Recorded Not on file documented as of this encounter Plan of Treatment Not on filedocumented as of this encounter Procedures Procedure Name Priority Date/Time Associated Diagnosis Comme nts HEMOGLOBIN Routine 12/08/2010 6:42 AM Results f or this CDT procedure are i n the results section . documented in this encounter Results Hemoglobin (12/08/2010 6:42 AM CDT) athologist Signature Hemoglobin 12.5 11.7 - 15.7 [facility] g/dL HOSPITAL LAB Specimen Anatomical Collection Method Collection Time Receive d Time (Source) Location / / Volume Laterality 12/08/2010 6:42 AM 1 6:51 CDT AM CDT Kalee Lima MD LAB - BLOOD ORDERABLES Performing Organization Address City/State/ZIP Code Phon e Number [facility] [address] [place], [place] [address] [facility] documented in this encounter Visit Diagnoses Not on filedocumented in this encounter
--- OUTSIDE RECORDS SUMMARY | 2022-08-31 15:02 | XMS_ITS | Encounter Summary ---
:1970 Author Organization [place] Address [address] [place] [address] Care Team Providers Name Role Phone Unavailable Primary Care Provider Unavailable Encounter Details Date Type Department Care Team Description 06/08/2006 Consultation [facility] Urgent Do hardeep Serrano MD Care [facility] [address] [facility] [id number] [place] [address] [phone] Social History Tobacco Use Types Packs/Day Years Used Date Smoking Tobacco: Never Assessed Sex Assigned at Date Recorded Not on file documented as of this encounter Progress Notes Guy Serrano - 07/04/2006 12:49 AM CDT FINAL REASON FOR CONSULTATION: Syncope/tachycardia. HISTORY OF PRESENT ILLNESS: A 35-year-old female with no significant past medical history who presents here for an uneventful live vaginal of her third live child. No prior C sections. She does report 1 miscarriage about a year or so prior to this . She has had an uneventful course and had only been on vitamins prior to her delivery. She delivered around 1340 and had an approximately 500 ml estimated blood loss. The nurses had beenchecking up on her, and report that her bleeding had actually been slowing down. She was up to the bathroom to urinate as well as to clean up when she felt light-headed and dizzy and did report some tightness across her chest. The nursing staff was there and noted that she was pale. She subsequently had a witnessed syncopal spell by the nursing staff, atraumatic and was caught before she actually passed out onto the ground. She was assisted back into bed and laid in a flat position. Her blood pressure back in bed was 83/40s. Currently, blood pressure is 100s/40s, and she currently reports that she is feeling quite a bit better. No chest pain. No shortness of breath currently. She has no known cardiac disease or cardiac arrhythmias. No syncopal spells in the past. No family history of premature cardiac disease or malignant arrhythmias. Her EKG currently demonstrates a sinus tach with no acute changes. No witnessed seizure-like activity. She is currently starting to feel better. She denies any known history of peptic ulcer and has not been having any melenic stools. Currently, feeling back to baseline. PAST MEDICAL HISTORY: Negative. ALLERGIES: None. MEDICATIONS: . SOCIAL HISTORY: Nonsmoker, nondrinker. She is . This is her third live vaginal . She has had a miscarriage prior to this one. She appears a little reluctant in her OB history on my interview. FAMILY HISTORY: Negative for premature coronary disease or bleeding diathesis. No family history ofblood clots. REVIEW OF SYSTEMS: Limited to HPI given the urgency of the situation. PHYSICAL EXAMINATION: VITAL SIGNS: Currently, she is afebrile. Blood pressure 100s/40-50. Heart rate 100-120. Respirations 20. GENERAL: She is alert, appears comfortable currently. Oriented x3. HEENT: Atraumatic, normocephalic. Sclerae nonicteric. Slightly pale sclerae. Oropharynx otherwise clear. NECK: Supple. CARDIOVASCULAR: Normal S1, S2. Regular but tachycardic. CHEST: Clear. ABDOMEN: Soft, benign with normal bowel sounds. EXTREMITIES: 1+ edema. ASSESSMENT: A 35-year-old female who presented here for an uneventful live vaginal delivery with nosignificant peripartum blood loss per report, now with an episode of syncope. Appears to be orthostatic and probably micturition/vasovagal syncope. Highly doubt an acute coronary syndrome given her lowrisk factors. Pulmonary embolus also less likely given the positional nature of her symptomatologies. PLAN: At this time, will monitor her vitals closely, q. 30 minutes for the next few hours. Check a hemoglobin as well as some electrolytes. Check 2 troponins, although I doubt this will likely have any value. Other than her vaginal bleeding , no other signs of active bleeding. Will continueto follow this patient with you. Electronically signed on 07/04/2006 00:48 by GUY SERRANO MD MT: [id number] Name: RAJESH STEVENS MRN: [id number] Account: [id number] : 1970 Consult Date: 06/08/2006 Document: [id number] documented in this encounter Plan of Treatment Not on filedocumented as of this encounter Visit Diagnoses Not on filedocumented in this encounter
--- OUTSIDE RECORDS SUMMARY | 2022-08-31 15:02 | XMS_ITS | Encounter Summary ---
:1970 Author Organization [place] Address [address] [place] [address] Care Team Providers Name Role Phone Unavailable Primary Care Provider Unavailable Encounter Details Date Type Department Care Team Description 06/08/2006 Historic Results [facility] Deysi Serrano MD Hospitalists [address] [place] [address] [place], [place] [phone] (Wo rk) [id number] [phone] Social History Tobacco Use Types Packs/Day Years Used Date Smoking Tobacco: Never Assessed Sex Assigned at Date Recorded Not on file documented as of this encounter Plan of Treatment Not on filedocumented as of this encounter Procedures Procedure Name Priority Date/Time Associated Diagnosis Comme nts TROPONIN I Timed 06/08/2006 9:55 PM Results f or this CDT procedure are i n the results section. TROPONIN I STAT 06/08/2006 5:10 PM Results f or this CDT procedure are i n the results section. HEMOGRAM AND STAT 06/08/2006 5:10 PM Results f or this PLATELET CDT procedure are i n the results section. BASIC METABOLIC STAT 06/08/2006 5:10 PM Result s for this PANEL CDT procedure are i n the results section. documented in this encounter Results Troponin I (06/08/2006 9:55 PM CDT) athologist Signature Troponin I <0.04 0.00 - 0.40 MISYS ug/L Specimen Anatomical Collection Method Collection Time Receive d Time (Source) Location / / Volume Laterality 06/08/2006 9:55 PM 6 CDT 10:00 PM CDT Estella Serrano MD LAB - BLOOD ORDERABLES Performing Organization Address [facility] Phon e Number MISYS (ABNORMAL) Hemogram and platelet (06/08/2006 5:10 PM CDT) athologist Signature MCV 90 78 - 100 fl MISYS MCH 32.4 26.5 - 33.0 MISYS pg MCHC 36.2 (H) 32.0 - 36.0 MISYS g/dL Comment: Results confirmed by repeat marilin t RDW 11.6 10.0 - 15.0 % MISYS WBC 16.0 (H) 4.0 - 11.0 10e9/L MISYS RBC Count 3.63 (L) 3.8 - 5.2 10e12/L MISYS Hemoglobin 11.8 11.7 - 15.7 g/dL MISYS Hematocrit 32.6 (L) 35.0 - 47.0 % MISYS Platelet Count 218 150 - 450 10e9/L MISYS Specimen Anatomical Collection Method Collection Time Receive d Time (Source) Location / / Volume Laterality 06/08/2006 5:10 PM 6 4:47 CDT PM CDT Estella Serrano MD LAB - BLOOD ORDERABLES Performing Organization Address [facility] Phon e Number MISYS (ABNORMAL) Basic metabolic panel (06/08/2006 5:10 PM CDT) athologist Signature Sodium 136 133 - 144 MISYS mmol/L Potassium 3.7 3.4 - 5.3 MISYS mmol/L Chloride 107 94 - 109 MISYS mmol/L Carbon Dioxide 22 20 - 32 MISYS mmol/L Glucose 167 (H) 60 - 110 MISYS mg/dL Urea Nitrogen 10 5 - 24 MISYS mg/dL Creatinine 0.62 0.60 - MISYS 1.30 mg/dL GFR Estimate >90 >60 MISYS mL/min/1.7 m2 GFR Estimate If >90 >60 MISYS Black mL/min/1.7 m2 Calcium 8.6 8.5 - 10.4 MISYS mg/dL Anion Gap 7 6 - 17 MISYS mmol/L Specimen Anatomical Collection Method Collection Time Receive d Time (Source) Location / / Volume Laterality 06/08/2006 5:10 PM 6 4:47 CDT PM CDT Estella Serrano MD LAB - BLOOD ORDERABLES Performing Organization Address City/[facility] Code Phon e Number MISYS Troponin I (06/08/2006 5:10 PM CDT) P athologist Signature Troponin I <0.04 0.00 - 0.40 MISYS ug/L Specimen Anatomical Collection Method Collection Time Receive d Time (Source) Location / / Volume Laterality 06/08/2006 5:10 PM 6 4:47 CDT PM CDT Estella Serrano MD LAB - BLOOD ORDERABLES Performing Organization Address City/State/[facility] Code Phon e Number MISYS documented in this encounter Visit Diagnoses Not on filedocumented in this encounter
--- OUTSIDE RECORDS SUMMARY | 2022-08-31 15:02 | XMS_ITS | Encounter Summary ---
:1970 Author Organization [place] Address [address] [place] [address] Care Team Providers Name Role Phone Unavailable Primary Care Provider Unavailable Encounter Details Date Type Department Care Team Description 12/08/2010 Historic Notes INTERFACED REPORT Interface, Transcript onMD Social History Tobacco Use Types Packs/Day Years Used Date Smoking Tobacco: Never Assessed Sex Assigned at Date Recorded Not on file documented as of this encounter Progress Notes Interface, Salad Bar Clerk - 12/27/2010 6:35 PM CDT Mom reports baby is nursing well. Encouraged mom to call us PRN. [Signature] Author: Galina Salas (RN) [Signed 11:12] documented in this encounter Plan of Treatment Not on filedocumented as of this encounter Visit Diagnoses Not on filedocumented in this encounter
--- OUTSIDE RECORDS SUMMARY | 2022-08-31 15:02 | XMS_ITS | Encounter Summary ---
:1970 Author Organization [place] Address [address] [place] [address] Care Team Providers Name Role Phone Unavailable Primary Care Provider Unavailable Encounter Details Date Type Department Care Team Description 03/01/2010 [facility] [address] [address] [address] [place] [address] [phone] (Wo rk) Social History Tobacco Use Types Packs/Day Years Used Date Smoking Tobacco: Never Assessed Sex Assigned at Date Recorded Not on file documented as of this encounter Plan of Treatment Not on filedocumented as of this encounter Procedures Procedure Name Priority Date/Time Associated Comments Diagnosis HCG QUANTITATIVE Routine 03/01/2010 7:28 AM Resul ts for this CDT procedure are i n the results section. documented in this encounter Results HCG quantitative (03/01/2010 7:28 AM CDT) P athologist Signature HCG Quantitative 185 IU/L MISYS Serum Comment: Non- ?0 - 5 , weeks from LMP: ??1 - 10 weeks ? 64 - 151,000 IU/L 11 - 15 weeks 11,800 - 152,000 IU/L 16 - 22 weeks ??9,380 - 61,400 IU/L 23 - 40 weeks ??1,740 - 98,600 IU/L Specimen Anatomical Collection Method Collection Time Receive d Time (Source) Location / / Volume Laterality 03/01/2010 7:28 AM 0 7:26 CDT AM CDT Kalee Lima MD LAB - BLOOD ORDERABLES Performing Organization Address City/State/ZIP Code Phon e Number MISYS documented in this encounter Visit Diagnoses Not on filedocumented in this encounter
--- OUTSIDE RECORDS SUMMARY | 2022-08-31 15:02 | XMS_ITS | Encounter Summary ---
:1970 Author Organization [place] Address [address] [place] [address] Care Team Providers Name Role Phone Unavailable Primary Care Provider Unavailable Encounter Details Date Type Department Care Team Description 12/07/[address] [facility] Kalee Lima (Stone Lathe Operator) [facility] Results MD [address] [address] [place] [address] Social History Tobacco Use Types Packs/Day Years Used Date Smoking Tobacco: Never Assessed Sex Assigned at Date Recorded Not on file documented as of this encounter Progress Notes Kalee Amaya D - 12/21/2010 1:30 AM CDT FINAL BRIEF HISTORY/HOSPITAL COURSE: Rajesh Stevens is a 40-year-old G7, P3-0-3-3 with an EDC of 12/07/2010 by a 6-week ultrasound. Her course was complicated by advanced maternal age and unplanned on oral contraceptive pills. She also has a history of anxiety and depression and is on Celexa. Blood type O positive and rubella immune. First trimester screen within the normal range; Level II ultrasound done as well. Negative AFP. Group B strep negative. FIRST STAGE: The patient desired elective induction at 40+0 weeks and was counseled regarding the risks and benefits. Estimated weight 8 pounds. Hickman score of 9. She was admitted and started on Pitocin for induction. Artificial rupture of membranes at 9:00 a.m. with moderate meconium noted. Ep idural received for pain control. She progressed along a normal labor curve. SECOND STAGE: Complete at 1405, pushed well and delivered a viable female at 1419. Apgars were 9 at 1 minute and 9 at 5 minutes. Complete suctioning of the mouth and nares was performed after delivery of the anterior placenta. The remainder of the body then delivered easily and the cord was cla mped x2 on mother's abdomen and cut. Infant was vigorous on delivery. Weight 7 pounds 7 ounces. Special care nursery was present for delivery for the moderate meconium and they did more thorough suctioning of the infant after clamping and cutting of the cord. THIRD STAGE: A second-degree perineal laceration was brought together with 3-0 Vicryl using an epidural for pain control in the usual fashion. At this point, gentle traction was performed on the umbilical cord and there was lengthening of the umbilical cord. It did avulse from the placenta, however. So a manual extraction of the placenta was performed without complication using an epidural for pain control. The patient tolerated this very well and all the placenta appeared to be removed. It was examined after manual extraction and appeared to be intact. Ancef 2 grams IV will be given after delivery for the manual extraction. FIRST STAGE: 2 hours 5 minutes. Second stage 16 minutes. Third stage 9 minutes. Total time 2 hours 39 minutes. Electronically signed on 12/21/2010 01:30 by KALEE AMAYA MD MT: [id number] Name: RAJESH STEVENS MRN: [id number] Account: [id number] : 1970 Delivery Date: 12/07/2010 Document: [id number] documented in this encounter Plan of Treatment Not on filedocumented as of this encounter Visit Diagnoses Not on filedocumented in this encounter
--- OUTSIDE RECORDS SUMMARY | 2022-08-31 15:02 | XMS_ITS | Encounter Summary ---
:1970 Author Organization [place] Address [address] [place] [address] Care Team Providers Name Role Phone Unavailable Primary Care Provider Unavailable Encounter Details Date Type Department Care Team Description 06/09/2006 [facility] [place] [address] [address] [place] [address] [phone] (Wo rk) Social History Tobacco Use Types Packs/Day Years Used Date Smoking Tobacco: Never Assessed Sex Assigned at Date Recorded Not on file documented as of this encounter Plan of Treatment Not on filedocumented as of this encounter Procedures Procedure Name Priority Date/Time Associated Comments Diagnosis HEMOGRAM DIFFERENTIAL Routine 06/09/2006 7:55 AM Results for this AND PLATELET CDT procedure are i n the results section. BASIC METABOLIC PANEL Routine 06/09/2006 7:55 AM Results for this CDT procedure are i n the results section. documented in this encounter Results (ABNORMAL) Hemogram differential and platelet (06/09/2006 7:55 AM CDT) [facility] Method Time Signature MCV 91 78 - 100 MISYS fl MCH 31.7 26.5 - MISYS 33.0 pg MCHC 34.7 32.0 - MISYS 36.0 g/dL RDW 11.8 10.0 - MISYS 15.0 % WBC 12.8 (H) 4.0 - MISYS 11.0 10e9/L RBC Count 3.52 (L) 3.8 - 5.2 MISYS 10e12/L Hemoglobin 11.2 (L) 11.7 - MISYS 15.7 g/dL Hematocrit 32.2 (L) 35.0 - MISYS 47.0 % % Neutrophils 82 (H) 40 - 75 % MISYS % Lymphocytes 13 (L) 20 - 48 % MISYS % Monocytes 4 0 - 12 % MISYS % Eosinophils 1 0 - 6 % MISYS % Basophils 0 0 - 2 % MISYS Platelet Count 204 150 - 450 MISYS 10e9/L Absolute 10.5 (H) 1.6 - 8.3 MISYS Neutrophil 10e9/L Absolute 1.6 0.8 - 5.3 MISYS Lymphocytes 10e9/L Absolute 0.6 0.0 - 1.3 MISYS Monocytes 10e9/L Absolute 0.1 0.0 - 0.7 MISYS Eosinophils 10e9/L Absolute 0.0 0.0 - 0.2 MISYS Basophils 10e9/L Diff Method Automated MISYS Method Specimen (Source) Anatomical Collection Method Collection Time Re ceived Time Location / / Volume Laterality 06/09/2006 7:55 AM 6 CDT Kalee Lima MD LAB - BLOOD ORDERABLES Performing Organization Address City/State/ZIP Code Phon e Number MISYS (ABNORMAL) Basic metabolic panel (06/09/2006 7:55 AM CDT) P athologist Signature Sodium 139 133 - 144 MISYS mmol/L Potassium 3.9 3.4 - 5.3 MISYS mmol/L Chloride 111 (H) 94 - 109 MISYS mmol/L Carbon Dioxide 24 20 - 32 MISYS mmol/L Glucose 79 60 - 110 MISYS mg/dL Urea Nitrogen 5 5 - 24 MISYS mg/dL Creatinine 0.61 0.60 - MISYS 1.30 mg/dL GFR Estimate >90 >60 MISYS mL/min/1.7 m2 GFR Estimate If >90 >60 MISYS Black mL/min/1.7 m2 Calcium 8.3 (L) 8.5 - 10.4 MISYS mg/dL Anion Gap 4 (L) 6 - 17 MISYS mmol/L Specimen (Source) Anatomical Collection Method Collection Time Re ceived Time Location / / Volume Laterality 06/09/2006 7:55 AM 6 CDT Kalee Lima MD LAB - BLOOD ORDERABLES Performing Organization Address City/State/ZIP Code Phon e Number MISYS documented in this encounter Visit Diagnoses Not on filedocumented in this encounter
--- OUTSIDE RECORDS SUMMARY | 2022-08-31 15:02 | XMS_ITS | Encounter Summary ---
:1970 Author Organization [place] Address [address] [place] [address] Care Team Providers Name Role Phone Unavailable Primary Care Provider Unavailable Encounter Details Date Type Department Care Team Description 06/07/2006 Historic Results INTERFACED REPORT Interface, Humberto mcclain MD Social History Tobacco Use Types Packs/Day Years Used Date Smoking Tobacco: Never Assessed Sex Assigned at Date Recorded Not on file documented as of this encounter Plan of Treatment Not on filedocumented as of this encounter Procedures Procedure Name Priority Date/Time Associated Comments Diagnosis ROUTINE UA WITH Routine 06/07/2006 8:00 PM Result s for this MICROSCOPIC CDT procedure are i n the results section. documented in this encounter Results (ABNORMAL) Routine UA with microscopic (06/07/2006 8:00 PM CDT) [facility] Method Time Signature Source Midstream MISYS Urine Color Urine Yellow MISYS Appearance Urine Clear MISYS Glucose Urine Negative NEG mg/dL MISYS Bilirubin Urine Negative NEG MISYS Ketones Urine 5 (A) NEG mg/dL MISYS Specific Means 1.019 1.003 - MISYS Urine 1.035 Blood Urine Negative NEG MISYS pH Urine 6.0 5.0 - 7.0 MISYS pH Protein Albumin Negative NEG mg/dL MISYS Urine Urobilinogen Normal 0.0 - 2.0 MISYS mg/dL mg/dL Nitrite Urine Negative NEG MISYS Leukocyte Negative NEG MISYS Esterase Urine WBC Urine 1 0 - 2 MISYS /HPF RBC Urine 6 (H) 0 - 2 MISYS /HPF Squamous <1 0 - 1 MISYS Epithelial /HPF /HPF Urine Bacteria Urine Few (A) NEG /HPF MISYS Mucous Urine Present (A) NEG /LPF MISYS Specimen Anatomical Collection Method Collection Time Receive d Time (Source) Location / / Volume Laterality 06/07/2006 8:00 PM 6 8:15 CDT PM CDT Transcripton Interface LAB - URINE ORDERABLES Performing Organization Address City/State/ZIP Code Phon e Number MISYS documented in this encounter Visit Diagnoses Not on filedocumented in this encounter
[2022-08-31] MEDS: ALBUTEROL SULFATE 2.5 MG/3 ML VIAL.NEB NEB (16:15)
--- NOTE | 2022-08-31 16:24 | RESP.RT ---
Pt seen. She is on RA with SPO2 at 86%. BBS very tight, with poor aeration. Expiratory wheezing in LLL. Pt needs oxygen at this time 2-3 L. Would also do every 2 hour Albuterol nebs. She has a good understanding of her Asthma, and recognizes she may have waited to come in. 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 Would encourage her to stay overnight.
== END 2022-08-31 17:16 | disposition home or self-care (01) ==
PROVIDERS: Emergency Provider Family Medicine
DX: J45.901 Unspecified asthma with (acute) exacerbation (principal); J06.9 Acute upper respiratory infection, unspecified
CPT/HCPCS: 36415; 71045; 80048; 80076; 85025; 86140; 87502; 87634; 87635; 94640; 94761; 99284; A9270; J7030; J7512